=== PATIENT | male | born 1950 | race Caucasian/White ===

== ENCOUNTER → 2016-08-27 | Outpatient (CLI) | payer MEDICARE, BC ==
--- NOTE | 2016-08-28 09:32 | XR ---
Abdomen HISTORY: Flank pain Frontal view of the abdomen submitted on 3 images No comparisons Bone mineralization is maintained. There is no bowel obstruction or pneumoperitoneum. Retained fecal debris present throughout the distribution of the colon. Lung bases are clear. There may be a spinal curvature. Patient appears rotated. IMPRESSION: Correlate for fecal stasis. Some limitations to the exam. Follow-up as indicated.
== END | disposition home or self-care (01) ==
LOC: RADXRYALE 13:20
PROVIDERS: ATTEND Internal Medicine
DX: R10.84 Generalized abdominal pain (principal)
CPT/HCPCS: 74000

== ENCOUNTER → 2016-11-24 | Outpatient (CLI) | payer MEDICARE, BC ==
--- NOTE | 2016-11-25 14:59 | XR ---
EXAMINATION TYPE: XR thoracic spine complete DATE OF EXAM: 11/24/2016 12:18 PM COMPARISON: NONE HISTORY: Upper thoracic pain following fall TECHNIQUE: 3 view thoracic spine FINDINGS: There are 12 thoracic type vertebral bodies. Pedicles are intact. Vertebral body alignment is exaggerated kyphosis centered within the mid thoracic spine. Mild disc space narrowing is present torsion. IMPRESSION: 1. Mild increased kyphosis midthoracic spine
== END | disposition home or self-care (01) ==
LOC: RADXRYALE 12:04
PROVIDERS: ATTEND Internal Medicine
DX: M40.204 Unspecified kyphosis, thoracic region (principal)
CPT/HCPCS: 72072

== ENCOUNTER → 2018-05-02 | Outpatient (CLI) | payer MEDICARE, BC ==
[2018-05-02 11:40] LABS: Basophils % (A) 0 %; Eosinophils # (A) 0.4 k/uL (0-0.7); Eosinophils % (A) 7 %; HCT 45.3 % (39.0-53.0); HGB 14.8 gm/dL (13.0-17.5); Lymphocytes # (A) 0.9 k/uL (1.0-4.8); Lymphocytes % (A) 13 %; MCH 29.4 pg (25.0-35.0); MCHC 32.8 g/dL (31.0-37.0); MCV 89.7 fL (80.0-100.0); Mean Platelet Volume 6.7; Monocytes # (A) 0.3 k/uL (0-1.0); Monocytes % (A) 5 %; Neutrophils # (A) 4.6 k/uL (1.3-7.7); Neutrophils % (A) 72 %; Platelet Count 267 k/uL (150-450); RBC 5.05 m/uL (4.30-5.90); WBC 6.4 k/uL (3.8-10.6)
[2018-05-02 11:50] LABS: Appearance,Urine Clear (Clear); Bilirubin,Urine Negative (Negative); Blood,Urine Negative (Negative); Color,Urine Yellow; Glucose,Urine (UA) Negative (Negative); Ketones,Urine Negative (Negative); Leukocyte Esterase,Urine Negative (Negative); Mucus,Urine Rare /hpf; Nitrite,Urine Negative (Negative); PH, Urine 6.5 (5.0-8.0); Protein,Urine 2+ (Negative); Specific Gravity,Urine 1.015 (1.001-1.035); Squamous Epithelial Cell,Urine <1 /hpf (0-4); Urobilinogen,Urine <2.0 mg/dL (<2.0); WBC,Urine 1 /hpf (0-5)
[2018-05-02 12:06] LABS: Albumin 3.6 g/dL (3.5-5.0); Calcium 9.3 mg/dL (8.4-10.2); Potassium 4.4 mmol/L (3.5-5.1); Total Bilirubin 0.6 mg/dL (0.2-1.3); Total Protein 6.5 g/dL (6.3-8.2)
[2018-05-02 12:21] LABS: T4, Free (Free Thyroxine) 1.22 ng/dL (0.78-2.19)
[2018-05-02 17:12] LABS: Vitamin D 25 Hydroxy 31.4 ng/mL (30.0-100.0)
[2018-05-02 17:45] LABS: Parathyroid Hormone Intact 53.4 pg/mL (14.0-72.0)
[2018-05-02 20:41] LABS: Hemoglobin A1C 6.9 % (4.0-6.0)
== END ==
LOC: LABWHC1 09:24
PROVIDERS: ATTEND Internal Medicine
DX: E11.22 Type 2 diabetes mellitus with diabetic chronic kidney disease (principal); N18.9 Chronic kidney disease, unspecified
CPT/HCPCS: 36415; 80053; 80061; 81001; 82043; 82306; 82570; 82607; 83036; 83970; 84439; 84443; 85025

== ENCOUNTER → 2018-09-13 | Outpatient (CLI) | payer BC, MEDICARE ==
--- NOTE | 2018-09-14 06:54 | CT ---
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 CT DLP: 555.5 mGycm. Automated Exposure Control for Dose Reduction was Utilized. TECHNIQUE: CT scan of the thorax is performed without IV contrast. FINDINGS: LUNGS: Calcified pleural plaques are redemonstrated bilaterally. Mild peripheral reticulation is agai n seen. Dependent atelectasis is again seen in both lower lobes. There is more prominent focal atelec tasis and/or Limited consolidation posteriorly in the left lower lobe and centrally in the left lower lobe near axial image 37 new from prior study. Additional multifocal patchy infiltrates are seen in the lingula and central left upper lobe with mild to moderate bronchiectatic changes on current study new from prior exam. Prominence of lateral and posterior fat extending into pleural space in the right mid to lower lung i s similar to prior study. No pleural effusion is evident bilaterally. No suspicious parenchymal nodul es or masses are identified. MEDIASTINUM: Lack of IV contrast is noted to limit evaluation for mediastinal and especially hilar ad enopathy. There are no definitive greater than 1 cm hilar or mediastinal lymph nodes. No cardiomega ly is seen. Trace pericardial effusion anteriorly axial image 34 is stable. Moderate coronary artery calcification is redemonstrated which is noted marker for underlying coronary artery disease. Stable enlarged right and left pulmonary arteries OTHER: Small hiatal hernia is stable. Stable 1.5 cm right adrenal nodule axial image 51. Slightly lar miguelina exophytic 1.8 cm cyst right kidney axial image 60. Cortical thinning both kidneys redemonstrated. New focal density gallbladder lumen axial image 61 favors small stone and/or sludge. Scoliotic curva ture in thoracic spine is redemonstrated. IMPRESSION: 1. Stable calcified pleural plaques consistent with prior asbestos exposure are redemonstrated. Stabl e mild peripheral fibrosis. New central multilobar left lung infiltrates with bronchiectasis could r eflect acute on chronic parenchymal process, correlate clinically.
== END | disposition home or self-care (01) ==
LOC: RADCTMAIN 16:00
PROVIDERS: ATTEND Internal Medicine Sleep Medicine
DX: J47.9 Bronchiectasis, uncomplicated (principal); R91.8 Other nonspecific abnormal finding of lung field; J84.10 Pulmonary fibrosis, unspecified; J92.9 Pleural plaque without asbestos
CPT/HCPCS: 71250

== ENCOUNTER → 2019-01-30 | Outpatient (CLI) | payer OTHER ==
--- NOTE | 2019-01-31 10:09 | CT ---
EXAMINATION TYPE: CT thoracic spine wo con DATE OF EXAM: 01/30/2019 COMPARISON: CT chest 09/13/2018 and plain film 11/24/[address] chest 06/17/2015 HISTORY: back pain, Wedge compression fracture and kyphosis CT DLP: 1289 mGycm Automated exposure control for dose reduction was used. Helical acquisition through the thoracic spin e. Coronal and sagittal reconstructions. FINDINGS: The kyphosis seen on prior chest CT is again noted. There is anterior wedge compression deformity not ed as on prior exam at T7 and to lesser extent T8 and possibly T9, resulting kyphosis. Multilevel spo ndylosis is present. Loss of disc height present at multiple intervertebral levels. Vacuum phenomenon present at T9-10, T10-11, T8-9 and T5-6. There is a spinal curvature present. No significant spinal stenosis is evident. No sizable disc herniation on this noncontrast exam. No definite foraminal encro achment. There is some facet arthropathy changes at the lower thoracic spine. There is a hiatal hernia present. Atheromatous changes are present within the aorta and super aortic branch vessels. Minimal patchy density present at the posterior lung bases may reflect some atelectas is or scarring, there is some minimal calcified pleural plaque present at the left lung base. Descend ing aorta is ectatic measuring 2.7 cm. There are coronary calcifications. Right adrenal mass measures 18 mm. IMPRESSION: KYPHOSIS, ANTERIOR WEDGE COMPRESSION DEFORMITIES ARE CHRONIC. CORRELATE FOR ASBESTOS RELATED DISEASE. POSSIBLE BASILAR SCARRING, FOLLOW-UP. Stable thoracic aortic aneurysm. Hiatal hernia.
== END | disposition home or self-care (01) ==
LOC: RADCTMAIN 13:42
DX: M40.294 Other kyphosis, thoracic region (principal)
CPT/HCPCS: 72128

== ENCOUNTER 2019-09-14 12:16 | Inpatient (IN) | payer MEDICARE, OTHER ==
[2019-09-14] MEDS ORDERED: ALBUTEROL NEBULIZED 2.5 MG/3 ML INHALATION STA (12:57)
[2019-09-14] MEDS ORDERED: IPRATROPIUM 0.5 MG/2.5 ML NEBU INHALATION STA (12:57)
[2019-09-14] MEDS ORDERED: DEXAMETHASONE SOD PHOSPHATE 10 MG/ML 1 ML VIAL IV STA (12:58)
--- NOTE | 2019-09-14 13:05 | ED ---
General Adult HPI - General Chief complaint: Upper Respiratory Infection Stated complaint: flu symptoms Time Seen by Provider: 09/14/19 12:27 Source: patient Mode of arrival: wheelchair Limitations: no limitations - History of Present Illness Initial comments: Dictation was produced using [employer] dictation software. please excuse any grammatical, word or spelling errors. Chief Complaint: 69-year-old male past medical history asthma, CVA, diabetes, DVT sent in by primary care physician for possible pneumonia. History of Present Illness: 69-year-old male for the last 2-3 days patient has been suffering from cough, nasal congestion. Patient states he has a history of asthma. He states that his primary care physician told him to come to the emergency department for fluid pneumonia workup. Patient denies any overt sick contacts. Patient has a chest pain. Denies any nausea vomiting. Reports that his cough is nonproductive. He is denies any history of COPD. The ROS documented in this emergency department record has been reviewed and confirmed by me. Those systems with pertinent positive or negative responses have been documented in the HPI. All other systems are other negative and/or noncontributory. PHYSICAL EXAM: General Impression: Alert and oriented x3, not in acute distress HEENT: Normocephalic atraumatic, extra-ocular movements intact, pupils equal and reactive to light bilaterally, mucous membranes moist, no oropharyngeal erythema, positive rhinorrhea Cardiovascular: Heart regular rate and rhythm, S1&S2 audible, no murmurs, rubs or gallops Chest: Diffuse wheezing at end expiratory phase Abdomen: Bowel sounds present, abdomen soft, non-tender, non-distended, no organomegaly Musculoskeletal: Pulses present and equal in all extremities, no peripheral edema Motor: no focal deficits noted Neurological: CN II-XII grossly intact, no focal motor or sensory deficits noted Skin: Intact with no visualized rashes Psych: Normal affect and mood ED course: 69-year-old male with multiple comorbidities presents with URI-type symptoms. Upon arrival are within acceptable limits. Patient was directed to the emergency department for his symptoms. Laboratory evaluation obtained. CBC unremarkable. Metabolic panel shows elevated renal markers concerning for mild acute kidney injury. Influenza A is positive. Chest x-ray shows no acute cardiopulmonary processes. Patient still having respiratory issues despite breathing treatment. Given patient's comorbidities we'll have patient observed to the hospital for further monitoring. Patient given scheduled breathing treatments. Discussed patient case with Dr. ly was willing to accept patients care. - Related Data Home Medications Medication Instructions Recorded Confirmed INSULIN ASPART (NovoLOG) [NovoLOG See Protocol SQ AC-TID 02/26/14 04/25/17 (formulary)] Insulin Glargine [Lantus] 35 unit SQ HS 04/30/15 04/25/17 amLODIPine BESYLATE/BENAZEPRIL 1 cap PO DAILY 04/20/16 04/25/17 [Lotrel 10-20 MG] Previous Rx's Medication Instructions Recorded Aspirin 81 mg PO DAILY #30 04/25/17 Atorvastatin Calcium [Lipitor] 40 mg PO DAILY #30 04/25/17 predniSONE [Deltasone] 0 mg PO DIRECTED #10 tab 04/25/17 valACYclovir HCL [Valtrex] 500 mg PO BID #21 tab 04/25/17 Allergies Allergy/AdvReac Type Severity Reaction Status Date / Time fentanyl AdvReac Severe Nausea & Verified 04/25/17 09:01 Vomiting hydrocodone bitartrate AdvReac Nausea & Verified 04/25/17 09:01 [From [place]] Vomiting vancomycin AdvReac Unknown Verified 04/25/17 09:01 Review of Systems ROS Statement: Those systems with pertinent positive or pertinent negative responses have been documented in the HPI. ROS Other: All systems not noted in ROS Statement are negative. Past Medical History Past Medical History: Asthma, Chest Pain / Angina, CVA/TIA, Diabetes Mellitus, Deep Vein Thrombosis (DVT), GERD/Reflux, Hyperlipidemia, Hypertension, Pneumonia, Sleep Apnea/CPAP/BIPAP Additional Past Medical History / Comment(s): PAST HX INCLUDES: cardiac arrhythmia, hiatal hernia, hemorrhoids, Wound left foot,peripheral neuropathy, anemia, ,generalized vitiligo.ASBESTOSIS, TENDONS REMOVED FROM [facility] 04/30/16 History of Any Multi-Drug Resistant Organisms: MRSA Date of last positivie culture/infection: 09/10/2015 MDRO Source:: Left Foot Past Surgical History: Adenoidectomy, Appendectomy, Orthopedic Surgery, Tonsillectomy Additional Past Surgical History / Comment(s): Amputation great toe and 3rd toe left foot, bilateral rotator cuff. TENDONS REMOVED FROM [facility] 04/30/16 Past Anesthesia/Blood Transfusion Reactions: No Reported Reaction Past Psychological History: Anxiety, Depression Smoking Status: Former smoker Past Alcohol Use History: None Reported Past Drug Use History: None Reported - Past Family History Father Family Medical History: CVA/TIA Additional Family Medical History / Comment(s): several cva Mother Family Medical History: Asthma, COPD Sister(s) Family Medical History: Cancer Additional Family Medical History / Comment(s): Breast Cancer Brother(s) Family Medical History: Cancer Additional Family Medical History / Comment(s): Prostate and bladder Cancer General Exam Limitations: no limitations Course Vital Signs 09/14/19 09/14/19 09/14/19 12:20 12:50 13:13 Temperature 98.7 F Pulse Rate 79 80 Respiratory 18 18 Rate Blood Pressure 152/75 O2 Sat by Pulse 97 Oximetry 09/14/19 13:34 Temperature Pulse Rate 84 Respiratory Rate Blood Pressure O2 Sat by Pulse Oximetry Medical Decision Making - Lab Data Result diagrams: 09/14/19 12:25 09/14/19 12:25 Lab Results 09/14/19 09/14/19 09/14/19 Range/Units 12:24 12:25 12:25 WBC 5.7 (3.8-10.6) k/uL RBC 5.51 (4.30-5.90) m/uL Hgb 15.7 (13.0-17.5) gm/dL Hct 48.2 (39.0-53.0) % MCV 87.4 (80.0-100.0) fL MCH 28.6 (25.0-35.0) pg MCHC 32.7 (31.0-37.0) g/dL RDW 12.9 (11.5-15.5) % Plt Count 194 (150-450) k/uL Neutrophils % (Manual) 78 % Lymphocytes % (Manual) 9 % Monocytes % (Manual) 11 % Eosinophils % (Manual) 2 % Neutrophils # (Manual) 4.45 (1.3-7.7) k/uL Lymphocytes # (Manual) 0.51 L (1.0-4.8) k/uL Monocytes # (Manual) 0.63 (0-1.0) k/uL Eosinophils # (Manual) 0.11 (0-0.7) k/uL Nucleated RBCs 0 (0-0) /100 WBC Manual Slide Review Performed RBC Morphology Normal Sodium 136 L (137-145) mmol/L Potassium 4.8 (3.5-5.1) mmol/L Chloride 107 (98-107) mmol/L Carbon Dioxide 19 L (22-30) mmol/L Anion Gap 10 mmol/L BUN 40 H (9-20) mg/dL Creatinine 1.69 H (0.66-1.25) mg/dL Est GFR (CKD-EPI)AfAm 47 (>60 ml/min/1.73 sqM) Est GFR (CKD-EPI)NonAf 41 (>60 ml/min/1.73 sqM) Glucose 167 H (74-99) mg/dL Calcium 8.8 (8.4-10.2) mg/dL Influenza Type A RNA Detected H (Not Detectd) Influenza Type B (PCR) Not Detected (Not Detectd) Disposition Clinical Impression: Influenza, Respiratory failure Disposition: ADMITTED IP TO THIS HOSP Condition: Fair Referrals: Katey Dumont MD [Primary Care Provider] - 1-2 days Decision Time: 14:36
--- NOTE | 2019-09-14 13:53 | XR ---
EXAMINATION TYPE: XR chest 2V DATE OF EXAM: 09/14/2019 COMPARISON: 04/25/2017 HISTORY: Cough, congestion, and flulike symptoms TECHNIQUE: Frontal and lateral views of the chest are obtained. FINDINGS: There is no focal air space opacity, pleural effusion, or pneumothorax seen. The cardiac silhouette size is enlarged. Chronic pleural thickening of the lateral lungs. This is seen dating galindo k to 2017. Chronic interstitial prominence. Midthoracic compression deformity is unchanged from 2017 with exaggerated thoracic kyphosis, diffuse osseous demineralization and mild degenerative change of the spine. IMPRESSION: Chronic changes with no acute cardiopulmonary process.
[2019-09-14 14:01] LABS: Calcium 8.8 mg/dL (8.4-10.2)
[2019-09-14 14:04] LABS: HCT 48.2 % (39.0-53.0); HGB 15.7 gm/dL (13.0-17.5); MCH 28.6 pg (25.0-35.0); MCHC 32.7 g/dL (31.0-37.0); MCV 87.4 fL (80.0-100.0); Mean Platelet Volume 7.2; Platelet Count 194 k/uL (150-450); Potassium 4.8 mmol/L (3.5-5.1); RBC 5.51 m/uL (4.30-5.90); RDW 12.9 % (11.5-15.5); WBC 5.7 k/uL (3.8-10.6)
[2019-09-14 14:21] LABS: Eosinophils # (M) 0.11 k/uL (0-0.7); Lymphocytes # (M) 0.51 k/uL (1.0-4.8); Monocytes # (M) 0.63 k/uL (0-1.0); Neutrophils # (M) 4.45 k/uL (1.3-7.7); Neutrophils % (M) 78 %; Nucleated Red Blood Cells 0 /100 WBC (0-0); Total Cells Counted 100
[2019-09-14] MEDS ORDERED: NALOXONE 0.4 MG/ML 1 ML VIAL IV PRN (14:33)
[2019-09-14] MEDS ORDERED: OSELTAMIVIR 75 MG CAP PO STA (14:35)
[2019-09-14] MEDS: SODIUM CHLORIDE 0.9% 1,000 ML IV SCH (14:45)
[2019-09-14] MEDS: IPRATROPIUM-ALBUTEROL 3 ML NEB INHALATION SCH ×3 (16:16→20:07)
[2019-09-14 17:13] LABS: Glucose,Whole Blood 203 mg/dL (75-99)
[2019-09-14] MEDS: LISINOPRIL 20 MG TAB PO SCH (17:55)
[2019-09-14] MEDS: amLODIPine 10 MG TAB PO SCH (17:55)
[2019-09-14] MEDS: INSULIN ASPART (NovoLOG) 100 UNIT/ML VIAL SQ SCH (17:56)
--- NOTE | 2019-09-14 18:23 | P.CNPUL ---
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, patient was doing well however 4 days ago started having fever or chills along with shortness of breath and cough and wheezing, the symptoms of progressive decided to come into the hospital, he has a history of diabetes CVA and chronic asthma which is stable mild intermittent Review of Systems All systems: negative Past Medical History Past Medical History: Asthma, Chest Pain / Angina, CVA/TIA, Diabetes Mellitus, Deep Vein Thrombosis (DVT), GERD/Reflux, Hyperlipidemia, Hypertension, Pneumonia, Sleep Apnea/CPAP/BIPAP Additional Past Medical History / Comment(s): PAST HX INCLUDES: cardiac arrhythmia, hiatal hernia, hemorrhoids, Wound left foot,peripheral neuropathy, anemia, ,generalized vitiligo.ASBESTOSIS, TENDONS REMOVED FROM [facility] 04/30/16 History of Any Multi-Drug Resistant Organisms: MRSA Date of last positivie culture/infection: 09/10/2015 MDRO Source:: Left Foot Past Surgical History: Adenoidectomy, Appendectomy, Orthopedic Surgery, T onsillectomy Additional Past Surgical History / Comment(s): Amputation great toe and 3rd toe left foot, bilateral rotator cuff. 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 He is and lives in the family home with the . No significant alcohol use. No recreational drug use. No international travel. No animal exposures. He has been the 's caregiver for some time. Smoking Status: Former smoker Past Alcohol Use History: None Reported Additional Past Alcohol Use History / Comment(s): smoker for 30 years 1 ppd quit 1998 Past Drug Use History: None Reported - Past Family History Father Family Medical History: CVA/TIA Additional Family Medical History / Comment(s): several cva Mother Family Medical History: Asthma, COPD Sister(s) Family Medical History: Cancer Additional Family Medical History / Comment(s): Breast Cancer Brother(s) Family Medical History: Cancer Additional Family Medical History / Comment(s): Prostate and bladder Cancer Medications and Allergies Home Medications Medication Instructions Recorded Confirmed Type amLODIPine BESYLATE/BENAZEPRIL 1 cap PO DAILY 04/20/16 09/14/19 History [Lotrel 10-20 MG] Insulin Aspart [NovoLOG Flexpen] 10 units SQ AC-TID 09/14/19 09/14/19 History Insulin Glargine,Hum.rec.anlog 30 unit SQ HS 09/14/19 09/14/19 History [Lantus Solostar] Allergies Allergy/AdvReac Type Severity Reaction Status Date / Time fentanyl AdvReac Severe Nausea & Verified 09/14/19 18:04 Vomiting hydrocodone bitartrate AdvReac Nausea & Verified 09/14/19 18:04 [From [place]] Vomiting vancomycin AdvReac Unknown Verified 09/14/19 18:04 Physical Exam Vitals: Vital Signs Temp Pulse Resp BP Pulse Ox 09/14/19 16:29 80 09/14/19 16:16 82 09/14/19 14:52 79 18 129/76 97 09/14/19 13:34 84 09/14/19 13:13 80 09/14/19 12:50 18 09/14/19 12:20 98.7 F 79 18 152/75 97 Intake and Output 09/14/19 09/14/19 09/14/19 06:59 14:59 22:59 Other: Weight 111.13 kg 111.13 kg - Constitutional General appearance: average body habitus, cooperative, disheveled, mild distress - EENT Eyes: EOMI, PERRLA, poor dentition, normal appearance ENT: normal oropharynx Ears: bilateral: normal - Neck Neck: normal ROM Carotids: bilateral: upstroke normal Thyroid: bilateral: normal size - Respiratory Respiratory: bilateral: rhonchi, wheezing, prolonged expiration, negative: CTA, diminished, dullness, rales - Cardiovascular Rhythm: regular Heart sounds: normal: S1, S2 - Gastrointestinal General gastrointestinal: distended, soft - Integumentary Integumentary: normal - Neurologic Neurologic: CNII-XII intact - Musculoskeletal Musculoskeletal: gait normal, generalized weakness, strength equal bilaterally - Psychiatric Psychiatric: A&O x's 3, appropriate affect, intact judgment & insight Results - Laboratory Findings CBC and BMP: 09/14/19 12:25 09/14/19 12:25 Abnormal lab findings: Abnormal Labs 09/14/19 09/14/19 09/14/19 12:24 12:25 12:25 Lymphocytes # (Manual) 0.51 L Sodium 136 L Carbon Dioxide 19 L BUN 40 H Creatinine 1.69 H Glucose 167 H POC Glucose (mg/dL) Influenza Type A RNA Detected H 09/14/19 17:10 Lymphocytes # (Manual) Sodium Carbon Dioxide BUN Creatinine Glucose POC Glucose (mg/dL) 203 H Influenza Type A RNA - Diagnostic Findings Chest x-ray: report reviewed, image reviewed (No active process chronic changes with pleural thickening due to asbestosis) Assessment and Plan Assessment: Influenza A pneumonia Tracheobronchitis Acute asthma exacerbated by influenza A infection Baseline chronic intermittent asthma History of asbestosis lung Intravascular volume depletion and dehydration Chronic renal failure stage III Diabetes mellitus Hyperglycemia Plan: Tamiflu Bronchodilator IV steroids Gentle rehydration Follow renal functions closely Time with Patient: Greater than 30
[2019-09-14] MEDS ORDERED: IPRATROPIUM-ALBUTEROL 3 ML NEB INHALATION PRN (19:52)
[2019-09-14] MEDS: AZITHROMYCIN 500 MG TAB PO SCH (20:07)
[2019-09-14] MEDS: methylPREDNISolone SOD SUCCI 40 MG/ML 1 ML VIAL IV SCH (20:07)
[2019-09-14 20:09] LABS: Glucose,Whole Blood 338 mg/dL (75-99)
[2019-09-14 20:09] LABS: Glucose,Whole Blood 364 mg/dL (75-99)
[2019-09-14] MEDS ORDERED: INSULIN DETEMIR (LEVEMIR) 100 UNIT/ML SYR SQ SCH (21:00)
[2019-09-14] MEDS ORDERED: OSELTAMIVIR 60 MG/10 ML ORAL SYRINGE PO SCH (21:00)
--- NOTE | 2019-09-15 06:39 | P.HPIM ---
History of Present Illness This is a pleasant 69 years old male with past medical history of diabetes mellitus, hypertension, hyperlipidemia, CVA/TIA, asthma, deep venous thrombosis, sleep apnea on CPAP BiPAP, diabetic neuropathy. Presents with respiratory symptoms with coughing and some clear phlegm, some shortness of breath and chest pain with coughing, it looks malaise and generalized body aches and his been going on for last 2-3 days, he went to see his PCP Dr. Dumont and blood pressure was on the low side and therefore referred to the hospital. He also follows up with Dr. Jeronimo for chemical-induced asthma On the presentation vitals are stable, his oxygen saturating 97% on room air. Influenza a is detected, cbc unremarkable with normal wbc, creatinine elevated 1.69, glu 203 cxr: no acute process by radiology Review of Systems CONSTITUTIONAL: No fever, no malaise, no fatigue. HEENT: No recent visual problems or hearing problems. Denied any sore throat. CARDIOVASCULAR: No orthopnea, PND, no palpitations, no syncope. PULMONARY: No shortness of breath, no cough, no hemoptysis. GASTROINTESTINAL: No diarrhea, no nausea, no vomiting, no abdominal pain. Normoactive bowel sounds. NEUROLOGICAL: No headaches, no weakness, no numbness. HEMATOLOGICAL: Denies any bleeding or petechiae. GENITOURINARY: Denies any burning micturition, frequency, or urgency. MUSCULOSKELETAL/RHEUMATOLOGICAL: Denies any joint pain, swelling, or any muscle pain. ENDOCRINE: Denies any polyuria or polydipsia. Past Medical History Past Medical History: Asthma, Chest Pain / Angina, CVA/TIA, Diabetes Mellitus, Deep Vein Thrombosis (DVT), GERD/Reflux, Hyperlipidemia, Hypertension, Pn e[place], Sleep Apnea/CPAP/BIPAP Additional Past Medical History / Comment(s): PAST HX INCLUDES: cardiac arrhythmia, hiatal hernia, hemorrhoids, Wound left foot,peripheral neuropathy, anemia, ,generalized vitiligo.ASBESTOSIS, TENDONS REMOVED FROM [facility] 04/30/16 History of Any Multi-Drug Resistant Organisms: MRSA Date of last positivie culture/infection: 09/10/2015 MDRO Source:: Left Foot Past Surgical History: Adenoidectomy, Appendectomy, Orthopedic Surgery, Tonsillectomy Additional Past Surgical History / Comment(s): Amputation great toe and 3rd toe left foot, bilateral rotator cuff. TENDONS REMOVED FROM [facility] 04/30/16 Past Anesthesia/Blood Transfusion Reactions: No Reported Reaction Past Psychological History: Anxiety, Depression Smoking Status: Former smoker Past Alcohol Use History: None Reported Past Drug Use History: None Reported - Past Family History Father Family Medical History: CVA/TIA Additional Family Medical History / Comment(s): several cva Mother Family Medical History: Asthma, COPD Sister(s) Family Medical History: Cancer Additional Family Medical History / Comment(s): Breast Cancer Brother(s) Family Medical History: Cancer Additional Family Medical History / Comment(s): Prostate and bladder Cancer Medications and Allergies Home Medications Medication Instructions Recorded Confirmed Type RX: amLODIPine BESYLATE/BENAZEPRIL 1 cap PO DAILY 04/20/16 09/14/19 History [Lotrel 10-20 MG] Insulin Aspart [NovoLOG Flexpen] 10 units SQ AC-TID 09/14/19 09/14/19 History Insulin Glargine,Hum.rec.anlog 30 unit SQ HS 09/14/19 09/14/19 History [Lantus Solostar] Allergies Allergy/AdvReac Type Severity Reaction Status Date / Time fentanyl AdvReac Severe Nausea & Verified 09/14/19 18:04 Vomiting hydrocodone bitartrate AdvReac Nausea & Verified 09/14/19 18:04 [From [place]] Vomiting vancomycin AdvReac Unknown Verified 09/14/19 18:04 Physical Exam Vitals: Vital Signs Temp Pulse Resp BP Pulse Ox 09/14/19 12:50 18 09/14/19 12:20 98.7 F 79 18 152/75 97 Intake and Output 09/13/19 09/14/19 09/14/19 22:59 06:59 14:59 Other: Weight 111.13 kg GENERAL: The patient is alert and oriented x3, not in any acute distress. Well developed, well nourished. HEENT: Pupils are round and equally reacting to light. EOMI. No scleral icterus. No conjunctival pallor. Normocephalic, atraumatic. No pharyngeal erythema. No thyromegaly. CARDIOVASCULAR: S1 and S2 present. No murmurs, rubs, or gallops. PULMONARY: Chest is clear to auscultation,. Bilateral expiratory wheezing ABDOMEN: Soft, nontender, nondistended, normoactive bowel sounds. No palpable organomegaly. MUSCULOSKELETAL: No joint swelling or deformity. EXTREMITIES: No cyanosis, clubbing, or pedal edema. NEUROLOGICAL: Gross neurological examination did not reveal any focal deficits. SKIN: No rashes. No petechiae Results CBC & Chem 7: 09/14/19 12:25 09/14/19 12:25 Labs: Abnormal Lab Results - Last 24 Hours (Table) 09/14/19 Range/Units 12:24 Influenza Type A RNA Detected H (Not Detectd) Assessment and Plan Assessment: Influenza A Acute tracheobronchitis Dehydration acute kidney injury Diabetes mellitus hypertension hyperlipidemia CVA/TIA diabetic neuropathy Deep venous thrombosis sleep apnea on CPAP/BiPAP Plan: This is a pleasant 69 years old male who presents with influenza A and tracheal bronchitis, start Tamiflu antibiotics, continue with steroids, bronchodilators and oxygen as needed and pulmonary consult, normal saline at 75 ml/hr Labs and medication were reviewed.. Continue same treatment. Continue with symptomatic treatment. Resume home medication. Monitor lytes and vitals. DVT and GI prophylaxis. Further recommendations of the clinical course of the patient DVT prophylaxis: Subcutaneous heparin GI Prophylaxis: Pepcid PT/OT: Pending Prognosis is guarded
[2019-09-15 07:17] LABS: Glucose,Whole Blood 314 mg/dL (75-99)
[2019-09-15] MEDS: IPRATROPIUM-ALBUTEROL 3 ML NEB INHALATION SCH ×4 (07:32→19:49)
[2019-09-15] MEDS: HEPARIN SODIUM,PORCINE 5,000 UNIT/ML 1 ML VIAL SQ SCH ×3 (08:20→21:05)
[2019-09-15] MEDS ORDERED: INSULIN ASPART (NovoLOG) 100 UNIT/ML VIAL SQ ONE (08:25)
[2019-09-15] MEDS: INSULIN ASPART (NovoLOG) 100 UNIT/ML VIAL SQ SCH ×6 (08:48→21:04)
[2019-09-15] MEDS: amLODIPine 10 MG TAB PO SCH (08:48)
[2019-09-15] MEDS: LISINOPRIL 20 MG TAB PO SCH (08:48)
[2019-09-15] MEDS: AZITHROMYCIN 500 MG TAB PO SCH (08:48)
[2019-09-15] MEDS: methylPREDNISolone SOD SUCCI 40 MG/ML 1 ML VIAL IV SCH (08:48)
[2019-09-15] MEDS: OSELTAMIVIR 60 MG/10 ML ORAL SYRINGE PO SCH ×2 (08:57→21:05)
[2019-09-15] MEDS ORDERED: FAMOTIDINE 20 MG/2 ML VIAL IV SCH (09:00)
[2019-09-15 11:46] LABS: Glucose,Whole Blood 293 mg/dL (75-99)
[2019-09-15 14:28] LABS: Appearance,Urine Clear (Clear); Bilirubin,Urine Negative (Negative); Blood,Urine Negative (Negative); Color,Urine Yellow; Glucose,Urine (UA) 4+ (Negative); Ketones,Urine Negative (Negative); Leukocyte Esterase,Urine Negative (Negative); Mucus,Urine Rare /hpf; Nitrite,Urine Negative (Negative); PH, Urine 5.5 (5.0-8.0); Protein,Urine 1+ (Negative); RBC,Urine 1 /hpf (0-5); Specific Gravity,Urine 1.017 (1.001-1.035); Urobilinogen,Urine <2.0 mg/dL (<2.0); WBC,Urine <1 /hpf (0-5)
[2019-09-15] MEDS: SODIUM CHLORIDE 0.9% 1,000 ML IV SCH (15:04)
--- NOTE | 2019-09-15 15:09 | CONS ---
CONSULTATION REASON FOR CONSULT: Renal failure. HISTORY OF PRESENT ILLNESS: The patient is a 69-year-old male who has a history of hypertension, type 2 diabetes, CVA, TIA, obstructive sleep apnea, who was admitted to the hospital with complaints of chest pain, shortness of breath. The patient was at his PCPs office and was noted to have low blood pressure. The patient states that he he has not had any prior history of kidney diseases. Upon admission patient did test positive for influenza A. He has good urine output. He did admit to use of a few doses of NSAIDs prior to admission. Blood pressure currently is not significantly low. PAST MEDICAL HISTORY: Diabetes, hypertension, CVA, TIA, history of DVT, gastroesophageal reflux disease, pneumonia, obstructive sleep apnea, asthma, peripheral neuropathy, hemorrhoids, asbestosis, previous history of MRSA foot infection. PAST SURGICAL HISTORY: Adenoidectomy, appendectomy, tonsillectomy, amputation great toe and third left toe. SOCIAL HISTORY: Positive for patient being a former smoker. No history of drug abuse or alcohol abuse. MEDICATIONS: Prior to admission included insulin, amlodipine, benazepril. ALLERGIES: Include FENTANYL, NORCO, VANCOMYCIN. REVIEW OF SYSTEMS: As per HPI. Other systems negative. PHYSICAL EXAMINATION: On examination, patient is comfortable, awake, not in any acute distress. Alert and oriented x3. Blood pressure was 133/62, heart rate 88 per minute, patient is afebrile. Examination of the heart S1, S2. Examination of the lungs, bilateral breath sounds are heard. Abdomen is soft, non-tender. Examination of lower extremities shows no significant edema. [employer] exam grossly intact. LABS: Show sodium 136, potassium 4.8, chloride 107, CO2 is 19, BUN 40, creatinine 1.69. Influenza A is positive. Hemoglobin 15.7, white cell count 5.7. Chest x-ray shows no acute pulmonary process. ASSESSMENT: 1. Acute kidney injury, most likely prerenal and associated with underlying infection. Continue with IV fluids for now. 2. Rule out chronic kidney disease secondary secondary diabetic nephropathy. Previous creatinine was 1.2 mg/dL in 2016 and 2018. NKF stage III. 3. Influenza A, maintained on Tamiflu. 4. Viral tracheobronchitis. 5. Hypertension, currently on MERA inhibitors, controlled. PLAN: Continue IV fluids, repeat labs in a.m. Decrease dose of lisinopril if serum creatinine is higher tomorrow. Avoid use of NSAIDs. Increase oral intake as tolerated. Thank you for this consultation. Will continue to follow the patient with you during his hospitalization. PURVI / VALENTE: [id number] /
--- NOTE | 2019-09-15 15:10 | P.PN ---
Subjective Progress Note Date: 09/15/19 Principal diagnosis: Influenza A pneumonia Tracheobronchitis Acute asthma exacerbated by influenza A infection Baseline chronic intermittent asthma History of asbestosis lung Intravascular volume depletion and dehydration Chronic renal failure stage III Diabetes mellitus Hyperglycemia 09/15/2019, patient seen eval examined during the rounds labs reviewed medications reviewed, care plan discussed, shortness of breath and wheezing and significantly improved, patient wishes to go home, agree with discharge planning with by mouth steroids antibiotics and Tamiflu, patient has been advised for social distance and avoidance going to public places for next several days until recovered completely, patient seems to understand This is a 69-year-old male well-known to be patient gets follow-up due to asbestosis lung asbestosis related lung injury, patient was doing well however 4 days ago started having fever or chills along with shortness of breath and cough and wheezing, the symptoms of progressive decided to come into the hospital, he has a history of diabetes CVA and chronic asthma which is stable mild intermittent Objective - Vital Signs Vital signs: Vital Signs Temp 98.3 F 09/15/19 13:05 Pulse 88 09/15/19 13:05 Resp 17 09/15/19 13:05 BP 133/62 09/15/19 13:05 Pulse Ox 91 L 09/15/19 13:05 Intake & Output 09/14/19 09/15/19 09/15/19 18:59 06:59 18:59 Intake Total 740 460 Balance 740 460 Weight 111.13 kg Intake: Oral 740 460 Other: # Voids 2 2 - Exam - Constitutional General appearance: average body habitus, cooperative, disheveled, mild distress - EENT Eyes: EOMI, PERRLA, poor dentition, normal appearance ENT: normal oropharynx Ears: bilateral: normal - Neck Neck: normal ROM Carotids: bilateral: upstroke normal Thyroid: bilateral: normal size - Respiratory Respiratory: Improved air entry bilaterally compared to yesterday exam - Cardiovascular Rhythm: regular Heart sounds: normal: S1, S2 - Gastrointestinal General gastrointestinal: distended, soft - Integumentary Integumentary: normal - Neurologic Neurologic: CNII-XII intact - Musculoskeletal Musculoskeletal: gait normal, generalized weakness, strength equal bilaterally - Psychiatric Psychiatric: A&O x's 3, appropriate affect, intact judgment & insight - Labs CBC & Chem 7: 09/14/19 12:25 09/14/19 12:25 Labs: Abnormal Lab Results - Last 24 Hours (Table) 09/14/19 09/14/19 09/14/19 Range/Units 17:10 20:05 20:08 POC Glucose (mg/dL) 203 H 364 H 338 H (75-99) mg/dL Urine Protein (Negative) Urine Glucose (UA) (Negative) Urine Mucus (None) /hpf 09/15/19 09/15/19 09/15/19 Range/Units 07:16 11:44 13:45 POC Glucose (mg/dL) 314 H 293 H (75-99) mg/dL Urine Protein 1+ H (Negative) Urine Glucose (UA) 4+ H (Negative) Urine Mucus Rare H (None) /hpf Assessment and Plan Assessment: Influenza A pneumonia Tracheobronchitis Acute asthma exacerbated by influenza A infection Baseline chronic intermittent asthma History of asbestosis lung Intravascular volume depletion and dehydration Chronic renal failure stage III Diabetes mellitus Hyperglycemia Plan: Tamiflu Bronchodilator IV steroids Gentle rehydration Follow renal functions closely Time with Patient: Greater than 30
--- NOTE | 2019-09-15 16:05 | P.PN ---
Subjective Progress Note Date: 09/15/19 Principal diagnosis: Influenza A pneumonia Severe acute tracheobronchitis Acute exacerbation of asthma Acute on chronic kidney disease 09/15/2019, patient seen eval examined during the rounds labs reviewed medications reviewed, care plan discussed, shortness of breath and wheezing and significantly improved, patient wishes to go home, agree with discharge planning with by mouth steroids antibiotics and Tamiflu, patient has been advised for social distance and avoidance going to public places for next several days until recovered completely, patient seems to understand Objective - Vital Signs Vital signs: Vital Signs Temp 98.3 F 09/15/19 13:05 Pulse 82 09/15/19 15:57 Resp 17 09/15/19 13:05 BP 133/62 09/15/19 13:05 Pulse Ox 91 L 09/15/19 13:05 Intake & Output 09/14/19 09/15/19 09/15/19 18:59 06:59 18:59 Intake Total 740 460 Balance 740 460 Weight 111.13 kg Intake: Oral 740 460 Other: # Voids 2 2 - Exam PHYSICAL EXAMINATION: GENERAL: The patient is alert and oriented x3, not in any acute distress. Well developed, well nourished. HEENT: Pupils are round and equally reacting to light. EOMI. No scleral icterus. No conjunctival pallor. Normocephalic, atraumatic. No pharyngeal erythema. No thyromegaly. CARDIOVASCULAR: S1 and S2 present. No murmurs, rubs, or gallops. PULMONARY: Chest is clear to auscultation, no wheezing or crackles. ABDOMEN: Soft, nontender, nondistended, normoactive bowel sounds. No palpable organomegaly. MUSCULOSKELETAL: No joint swelling or deformity. EXTREMITIES: No cyanosis, clubbing, or pedal edema. NEUROLOGICAL: Gross neurological examination did not reveal any focal deficits. SKIN: No rashes. - Labs CBC & Chem 7: 09/14/19 12:25 09/14/19 12:25 Labs: Abnormal Lab Results - Last 24 Hours (Table) 09/14/19 09/14/19 09/14/19 Range/Units 17:10 20:05 20:08 POC Glucose (mg/dL) 203 H 364 H 338 H (75-99) mg/dL Urine Protein (Negative) Urine Glucose (UA) (Negative) Urine Mucus (None) /hpf 09/15/19 09/15/19 09/15/19 Range/Units 07:16 11:44 13:45 POC Glucose (mg/dL) 314 H 293 H (75-99) mg/dL Urine Protein 1+ H (Negative) Urine Glucose (UA) 4+ H (Negative) Urine Mucus Rare H (None) /hpf Assessment and Plan Assessment: Influenza A Acute tracheobronchitis Dehydration acute kidney injury Diabetes mellitus hypertension hyperlipidemia CVA/TIA diabetic neuropathy Deep venous thrombosis sleep apnea on CPAP/BiPAP Plan: This is a pleasant 69 years old male who presents with influenza A and tracheal bronchitis, start Tamiflu antibiotics, continue with steroids, bronchodilators and oxygen as needed and pulmonary consult, normal saline at 75 ml/hr Labs and medication were reviewed.. Continue same treatment. Continue with symptomatic treatment. Resume home medication. Monitor lytes and vitals. DVT and GI prophylaxis. Further recommendations of the clinical course of the patient DVT prophylaxis: Subcutaneous heparin GI Prophylaxis: Pepcid
[2019-09-15 16:47] LABS: Glucose,Whole Blood 292 mg/dL (75-99)
[2019-09-15 20:29] LABS: Glucose,Whole Blood 305 mg/dL (75-99)
[2019-09-15] MEDS: INSULIN DETEMIR (LEVEMIR) 100 UNIT/ML SYR SQ SCH (21:04)
[2019-09-16] MEDS: SODIUM CHLORIDE 0.9% 1,000 ML IV SCH ×2 (04:39→17:04)
[2019-09-16 07:14] LABS: Glucose,Whole Blood 215 mg/dL (75-99)
[2019-09-16] MEDS: AZITHROMYCIN 500 MG TAB PO SCH (07:46)
[2019-09-16] MEDS: INSULIN ASPART (NovoLOG) 100 UNIT/ML VIAL SQ SCH ×7 (07:46→20:25)
[2019-09-16] MEDS: amLODIPine 10 MG TAB PO SCH (07:46)
[2019-09-16] MEDS: HEPARIN SODIUM,PORCINE 5,000 UNIT/ML 1 ML VIAL SQ SCH ×2 (07:47→20:25)
[2019-09-16] MEDS: OSELTAMIVIR 60 MG/10 ML ORAL SYRINGE PO SCH ×2 (07:47→20:25)
[2019-09-16] MEDS: LISINOPRIL 20 MG TAB PO SCH (07:47)
[2019-09-16] MEDS: predniSONE 20 MG TAB PO SCH (07:47)
[2019-09-16] MEDS: FAMOTIDINE 20 MG TAB PO SCH (07:47)
[2019-09-16 09:20] LABS: Potassium 4.9 mmol/L (3.5-5.1)
[2019-09-16 09:22] LABS: Basophils % (A) 0 %; Eosinophils % (A) 0 %; HCT 42.7 % (39.0-53.0); HGB 14.2 gm/dL (13.0-17.5); Lymphocytes # (A) 0.5 k/uL (1.0-4.8); Lymphocytes % (A) 4 %; MCH 28.9 pg (25.0-35.0); MCHC 33.3 g/dL (31.0-37.0); MCV 86.7 fL (80.0-100.0); Mean Platelet Volume 7.4; Monocytes # (A) 0.4 k/uL (0-1.0); Monocytes % (A) 3 %; Neutrophils # (A) 11.4 k/uL (1.3-7.7); Neutrophils % (A) 92 %; Platelet Count 228 k/uL (150-450); RBC 4.92 m/uL (4.30-5.90); RDW 12.8 % (11.5-15.5); WBC 12.4 k/uL (3.8-10.6)
[2019-09-16] MEDS: IPRATROPIUM-ALBUTEROL 3 ML NEB INHALATION SCH ×4 (09:47→21:04)
[2019-09-16 11:45] LABS: Glucose,Whole Blood 258 mg/dL (75-99)
--- NOTE | 2019-09-16 12:49 | P.PN ---
Subjective Progress Note Date: 09/16/19 Principal diagnosis: Influenza A pneumonia Tracheobronchitis Acute asthma exacerbated by influenza A infection Baseline chronic intermittent asthma History of asbestosis lung Intravascular volume depletion and dehydration Chronic renal failure stage III Diabetes mellitus Hyperglycemia 09/16/2019, patient seen eval examined during the rounds as reviewed medications reviewed slight jump in BUN/creatinine has been noted patient is being monitored for that, respiratory standpoint he is doing very well very limited wheezing are present on fours expiration denies any cough or sputum production, shortness of breath on exertion however is present 09/15/2019, patient seen eval examined during the rounds labs reviewed medications reviewed, care plan discussed, shortness of breath and wheezing and significantly improved, patient wishes to go home, agree with discharge planning with by mouth steroids antibiotics and Tamiflu, patient has been advised for social distance and avoidance going to public places for next several days until recovered completely, patient seems to understand This is a 69-year-old male well-known to be patient gets follow-up due to asbestosis lung asbestosis related lung injury, patient was doing well however 4 days ago started having fever or chills along with shortness of breath and cough and wheezing, the symptoms of progressive decided to come into the hospital, he has a history of diabetes CVA and chronic asthma which is stable mild intermittent Objective - Vital Signs Vital signs: Vital Signs Temp 98.4 F 09/16/19 07:00 Pulse 85 09/16/19 09:57 Resp 16 09/16/19 07:00 BP 154/71 09/16/19 07:00 Pulse Ox 93 L 09/16/19 07:00 Intake & Output 09/15/19 09/16/19 09/16/19 18:59 06:59 18:59 Intake Total 460 740 Balance 460 740 Intake: Oral 460 400 Other 340 Other: Voiding Method Toilet # Voids 2 1 - Exam - Constitutional General appearance: average body habitus, cooperative, disheveled, mild distress - EENT Eyes: EOMI, PERRLA, poor dentition, normal appearance ENT: normal oropharynx Ears: bilateral: normal - Neck Neck: normal ROM Carotids: bilateral: upstroke normal Thyroid: bilateral: normal size - Respiratory Respiratory: Improved air entry bilaterally compared to yesterday exam - Cardiovascular Rhythm: regular Heart sounds: normal: S1, S2 - Gastrointestinal General gastrointestinal: distended, soft - Integumentary Integumentary: normal - Neurologic Neurologic: CNII-XII intact - Musculoskeletal Musculoskeletal: gait normal, generalized weakness, strength equal bilaterally - Psychiatric Psychiatric: A&O x's 3, appropriate affect, intact judgment & insight - Labs CBC & Chem 7: 09/16/19 07:49 09/16/19 07:49 Labs: Abnormal Lab Results - Last 24 Hours (Table) 09/15/19 09/15/19 09/15/19 Range/Units 13:45 16:45 20:20 WBC (3.8-10.6) k/uL Neutrophils # (1.3-7.7) k/uL Lymphocytes # (1.0-4.8) k/uL Chloride (98-107) mmol/L Carbon Dioxide (22-30) mmol/L BUN (9-20) mg/dL Creatinine (0.66-1.25) mg/dL Glucose (74-99) mg/dL POC Glucose (mg/dL) 292 H 305 H (75-99) mg/dL Urine Protein 1+ H (Negative) Urine Glucose (UA) 4+ H (Negative) Urine Mucus Rare H (None) /hpf 09/16/19 09/16/19 09/16/19 Range/Units 07:06 07:49 07:49 WBC 12.4 H (3.8-10.6) k/uL Neutrophils # 11.4 H (1.3-7.7) k/uL Lymphocytes # 0.5 L (1.0-4.8) k/uL Chloride 112 H (98-107) mmol/L Carbon Dioxide 19 L (22-30) mmol/L BUN 42 H (9-20) mg/dL Creatinine 1.44 H (0.66-1.25) mg/dL Glucose 209 H (74-99) mg/dL POC Glucose (mg/dL) 215 H (75-99) mg/dL Urine Protein (Negative) Urine Glucose (UA) (Negative) Urine Mucus (None) /hpf 09/16/19 Range/Units 11:37 WBC (3.8-10.6) k/uL Neutrophils # (1.3-7.7) k/uL Lymphocytes # (1.0-4.8) k/uL Chloride (98-107) mmol/L Carbon Dioxide (22-30) mmol/L BUN (9-20) mg/dL Creatinine (0.66-1.25) mg/dL Glucose (74-99) mg/dL POC Glucose (mg/dL) 258 H (75-99) mg/dL Urine Protein (Negative) Urine Glucose (UA) (Negative) Urine Mucus (None) /hpf Microbiology - Last 24 Hours (Table) 09/14/19 12:55 Blood Culture - Preliminary Blood No Growth after 24 hours Assessment and Plan Assessment: Influenza A pneumonia Tracheobronchitis Acute asthma exacerbated by influenza A infection Baseline chronic intermittent asthma History of asbestosis lung Intravascular volume depletion and dehydration Chronic renal failure stage III Diabetes mellitus Hyperglycemia Plan: Tamiflu Bronchodilator IV steroids Gentle rehydration Follow renal functions closely Time with Patient: Greater than 30
--- NOTE | 2019-09-16 14:17 | P.NPCON ---
History of Present Illness - Reason for Consult Consult date: 09/16/19 acute renal failure - Chief Complaint Cough - History of Present Illness 69-year-old gentleman coming to the hospital with the above complaints. Currently being treated as influenza pneumonia. Long history of diabetes. He has chronic kidney disease stage III suspected diabetes with a baseline c reatinine of 1.2-1.3 MG per DL. He presented with a creatinine of 1.69. Improved with IV hydration to 1.4 MG per DL today. No nausea vomiting diarrhea. Generalized body aches with low oral intake. Denies NSAID use. No recent contrast studies. Review of Systems Constitutional: Reports as per HPI Past Medical History Past Medical History: Asthma, Chest Pain / Angina, CVA/TIA, Diabetes Mellitus, Deep Vein Thrombosis (DVT), GERD/Reflux, Hyperlipidemia, Hypertension, Pneumonia, Sleep Apnea/CPAP/BIPAP Additional Past Medical History / Comment(s): PAST HX INCLUDES: cardiac arrhythmia, hiatal hernia, hemorrhoids, Wound left foot,peripheral neuropathy, anemia, ,generalized vitiligo.ASBESTOSIS, TENDONS REMOVED FROM [facility] 04/30/16 History of Any Multi-Drug Resistant Organisms: MRSA Date of last positivie culture/infection: 09/10/2015 MDRO Source:: Left Foot Past Surgical History: Adenoidectomy, Appendectomy, Orthopedic Surgery, Tonsillectomy Additional Past Surgical History / Comment(s): Amputation great toe and 3rd toe left foot, bilateral rotator cuff. TENDONS REMOVED FROM [facility] 04/30/16 Past Anesthesia/Blood Transfusion Reactions: No Reported Reaction Past Psychological History: Anxiety, Depression Smoking Status: Former smoker Past Alcohol Use History: None Reported Past Drug Use History: None Reported - Past Family History Father Family Medical History: CVA/TIA Additional Family Medical History / Comment(s): several cva Mother Family Medical History: Asthma, COPD Sister(s) Family Medical History: Cancer Additional Family Medical History / Comment(s): Breast Cancer Brother(s) Family Medical History: Cancer Additional Family Medical History / Comment(s): Prostate and bladder Cancer Medications and Allergies Home Medications Medication Instructions Recorded Confirmed Type amLODIPine BESYLATE/BENAZEPRIL 1 cap PO DAILY 04/20/16 09/14/19 History [Lotrel 10-20 MG] Insulin Aspart [NovoLOG Flexpen] 10 units SQ AC-TID 09/14/19 09/14/19 History Insulin Glargine,Hum.rec.anlog 30 unit SQ HS 09/14/19 09/14/19 History [Lantus Yudiostar] Allergies Allergy/AdvReac Type Severity Reaction Status Date / Time fentanyl AdvReac Severe Nausea & Verified 09/14/19 18:04 Vomiting hydrocodone bitartrate AdvReac Nausea & Verified 09/14/19 18:04 [From [facility]] Vomiting vancomycin AdvReac Unknown Verified 09/14/19 18:04 Physical Exam Vitals: Vital Signs Temp Pulse Pulse Resp BP Pulse Ox 09/16/19 09:57 85 09/16/19 09:47 85 09/16/19 07:00 98.4 F 83 16 154/71 93 L 09/15/19 21:00 98.3 F 92 20 105/57 90 L 09/15/19 19:57 82 09/15/19 19:50 84 09/15/19 16:11 80 09/15/19 15:57 82 Intake and Output 09/15/19 09/16/19 09/16/19 22:59 06:59 14:59 Intake Total 400 340 Balance 400 340 Intake: Oral 400 Other 340 Other: Voiding Method Toilet # Voids 1 1 No acute distress S1-S2 heard Decreased breath sounds Abdomen soft Trace edema Results - Lab Results Most recent lab results Calcium 9.0 mg/dL (8.4-10.2) 09/16/19 07:49 09/16/19 07:49 09/16/19 07:49 Assessment and Plan Assessment: #1 nonoliguric acute kidney injury suspect prerenal process. #2 chronic kidney disease stage III with a baseline creatinine of 1.2-1.3 MG per DL suspected diabetes. #3 hypertension with chronic kidney disease #4 metabolic acidosis #5 influenza pneumonia on antibiotics Plan: #1 check renal ultrasound, urinalysis and urine protein creatinine ratio. #2 hold lisinopril for now with acute kidney injury. #3 avoid nephrotoxic agents and hypotensive episodes. #4 continue with IV fluids for now.
--- NOTE | 2019-09-16 16:04 | US ---
EXAMINATION TYPE: US kidneys/renal and bladder DATE OF EXAM: 09/16/2019 COMPARISON: multiple CT's and US dated 2014 CLINICAL HISTORY: size. Renal failure EXAM MEASUREMENTS: Right Kidney: 12.1 x 6.1 x 4.4 cm Left Kidney: 11.4 x 5.1 x 5.7 cm Right Kidney: Upper pole exophytic cyst measures 2.5 x 1.9 x 2.6 cm, and lower pole solid appearing m ass measures 3.3 x 4.3 x 2.8 cm Left Kidney: No hydronephrosis or masses seen Bladder: wnl IMPRESSION: There is a mass in the lower pole right kidney that is suspicious for tumor and appears new compared to old exam.
[2019-09-16 16:11] LABS: Appearance,Urine Clear (Clear); Bilirubin,Urine Negative (Negative); Blood,Urine Trace (Negative); Color,Urine Light Yellow; Glucose,Urine (UA) 3+ (Negative); Ketones,Urine Negative (Negative); Leukocyte Esterase,Urine Negative (Negative); Mucus,Urine Rare /hpf; Nitrite,Urine Negative (Negative); PH, Urine 5.5 (5.0-8.0); Protein,Urine 1+ (Negative); RBC,Urine <1 /hpf (0-5); Specific Gravity,Urine 1.014 (1.001-1.035); Squamous Epithelial Cell,Urine <1 /hpf (0-4); Urobilinogen,Urine <2.0 mg/dL (<2.0); WBC,Urine <1 /hpf (0-5)
--- NOTE | 2019-09-16 16:27 | P.PN ---
Subjective Progress Note Date: 09/16/19 Principal diagnosis: Influenza A pneumonia Severe acute tracheobronchitis Acute exacerbation of asthma Acute on chronic kidney disease 09/15/2019, patient seen eval examined during the rounds labs reviewed medications reviewed, care plan discussed, shortness of breath and wheezing and significantly improved, patient wishes to go home, agree with discharge planning with by mouth steroids antibiotics and Tamiflu, patient has been advised for social distance and avoidance going to public places for next several days until recovered completely, patient seems to understand 09/16/2019 Patient is seen and evaluated in room at bedside; patient is currently getting renal ultrasound done Remains on treatment for influenza and pneumonia; lab review shows improvement in creatinine from 1.69 yesterday down to 1.4; nephrology is following and recommending further evaluation of worsening renal failure with renal ultrasound and block for; we will continue with slow fluid hydration and monitor renal function and electrolytes Objective - Vital Signs Vital signs: Vital Signs Temp 98.4 F 09/16/19 07:00 Pulse 85 09/16/19 09:57 Resp 16 09/16/19 07:00 BP 154/71 09/16/19 07:00 Pulse Ox 93 L 09/16/19 07:00 Intake & Output 09/15/19 09/16/19 09/16/19 18:59 06:59 18:59 Intake Total 460 740 Balance 460 740 Intake: Oral 460 400 Other 340 Other: Voiding Method Toilet # Voids 2 1 - Exam PHYSICAL EXAMINATION: GENERAL: The patient is alert and oriented x3, not in any acute distress. Well developed, well nourished. HEENT: Pupils are round and equally reacting to light. EOMI. No scleral icterus. No conjunctival pallor. Normocephalic, atraumatic. No pharyngeal erythema. No thyromegaly. CARDIOVASCULAR: S1 and S2 present. No murmurs, rubs, or gallops. PULMONARY: Chest is clear to auscultation, no wheezing or crackles. ABDOMEN: Soft, nontender, nondistended, normoactive bowel sounds. No palpable organomegaly. MUSCULOSKELETAL: No joint swelling or deformity. EXTREMITIES: No cyanosis, clubbing, or pedal edema. NEUROLOGICAL: Gross neurological examination did not reveal any focal deficits. SKIN: No rashes. - Labs CBC & Chem 7: 09/16/19 07:49 09/16/19 07:49 Labs: Abnormal Lab Results - Last 24 Hours (Table) 09/15/19 09/15/19 09/16/19 Range/Units 16:45 20:20 07:06 WBC (3.8-10.6) k/uL Neutrophils # (1.3-7.7) k/uL Lymphocytes # (1.0-4.8) k/uL Chloride (98-107) mmol/L Carbon Dioxide (22-30) mmol/L BUN (9-20) mg/dL Creatinine (0.66-1.25) mg/dL Glucose (74-99) mg/dL POC Glucose (mg/dL) 292 H 305 H 215 H (75-99) mg/dL 09/16/19 09/16/19 09/16/19 Range/Units 07:49 07:49 11:37 WBC 12.4 H (3.8-10.6) k/uL Neutrophils # 11.4 H (1.3-7.7) k/uL Lymphocytes # 0.5 L (1.0-4.8) k/uL Chloride 112 H (98-107) mmol/L Carbon Dioxide 19 L (22-30) mmol/L BUN 42 H (9-20) mg/dL Creatinine 1.44 H (0.66-1.25) mg/dL Glucose 209 H (74-99) mg/dL POC Glucose (mg/dL) 258 H (75-99) mg/dL Microbiology - Last 24 Hours (Table) 09/14/19 12:55 Blood Culture - Preliminary Blood No Growth after 24 hours Assessment and Plan Assessment: Influenza A Acute tracheobronchitis Dehydration acute kidney injury Diabetes mellitus hypertension hyperlipidemia CVA/TIA diabetic neuropathy Deep venous thrombosis sleep apnea on CPAP/BiPAP Plan: This is a pleasant 69 years old male who presents with influenza A and tracheal bronchitis, start Tamiflu antibiotics, continue with steroids, bronchodilators and oxygen as needed and pulmonary consult, normal saline at 75 ml/hr Labs and medication were reviewed.. Continue same treatment. Continue with symptomatic treatment. Resume home medication. Monitor lytes and vitals. DVT and GI prophylaxis. Further recommendations of the clinical course of the patient DVT prophylaxis: Subcutaneous heparin GI Prophylaxis: Pepcid
[2019-09-16 17:00] LABS: Glucose,Whole Blood 238 mg/dL (75-99)
[2019-09-16 20:11] LABS: Glucose,Whole Blood 299 mg/dL (75-99)
[2019-09-16] MEDS: SODIUM BICARBONATE TAB 650 MG TAB PO SCH (20:25)
[2019-09-16] MEDS: INSULIN DETEMIR (LEVEMIR) 100 UNIT/ML SYR SQ SCH (20:25)
[2019-09-16 22:49] LABS: Urine Creatinine 66.7 mg/dL
[2019-09-17 07:05] LABS: Glucose,Whole Blood 97 mg/dL (75-99)
[2019-09-17] MEDS: INSULIN ASPART (NovoLOG) 100 UNIT/ML VIAL SQ SCH ×7 (07:19→20:32)
[2019-09-17 07:50] LABS: Calcium 9.2 mg/dL (8.4-10.2); Potassium 4.8 mmol/L (3.5-5.1)
[2019-09-17] MEDS: IPRATROPIUM-ALBUTEROL 3 ML NEB INHALATION SCH ×4 (07:52→19:58)
[2019-09-17] MEDS: SODIUM CHLORIDE 0.9% 1,000 ML IV SCH ×2 (08:24→20:33)
[2019-09-17] MEDS: AZITHROMYCIN 500 MG TAB PO SCH (08:25)
[2019-09-17] MEDS: predniSONE 20 MG TAB PO SCH (08:25)
[2019-09-17] MEDS: amLODIPine 10 MG TAB PO SCH (08:25)
[2019-09-17] MEDS: SODIUM BICARBONATE TAB 650 MG TAB PO SCH ×2 (08:25→20:32)
[2019-09-17] MEDS: OSELTAMIVIR 60 MG/10 ML ORAL SYRINGE PO SCH ×2 (08:25→20:31)
[2019-09-17] MEDS: HEPARIN SODIUM,PORCINE 5,000 UNIT/ML 1 ML VIAL SQ SCH ×2 (08:25→20:32)
[2019-09-17] MEDS: FAMOTIDINE 20 MG TAB PO SCH (08:25)
--- NOTE | 2019-09-17 10:16 | P.PN ---
Subjective Progress Note Date: 09/17/19 Principal diagnosis: Influenza A pneumonia Tracheobronchitis Acute asthma exacerbated by influenza A infection Baseline chronic intermittent asthma History of asbestosis lung Intravascular volume depletion and dehydration Chronic renal failure stage III Diabetes mellitus Hyperglycemia 09/17/2019, patient seen eval reexamined during the rounds sitting upright in the bed breathing comfortably denies any chest pain cough congestion shortness breath improved labs reviewed medications reviewed renal functions have improved now sure whether still running high, insulin is being adjusted, and, patient can be quickly tapered down from prednisone agree with discharge planning 09/16/2019, patient seen eval examined during the rounds as reviewed medications reviewed slight jump in BUN/creatinine has been noted patient is being monitored for that, respiratory standpoint he is doing very well very limited wheezing are present on fours expiration denies any cough or sputum production, shortness of breath on exertion however is present 09/15/2019, patient seen eval examined during the rounds labs reviewed medications reviewed, care plan discussed, shortness of breath and wheezing and significantly improved, patient wishes to go home, agree with discharge planning with by mouth steroids antibiotics and Tamiflu, patient has been advised for social distance and avoidance going to public places for next several days until recovered completely, patient seems to understand This is a 69-year-old male well-known to be patient gets follow-up due to asbestosis lung asbestosis related lung injury, patient was doing well however 4 days ago started having fever or chills along with shortness of breath and cough and wheezing, the symptoms of progressive decided to come into the hospital, he has a history of diabetes CVA and chronic asthma which is stable mild interm ittent Objective - Vital Signs Vital signs: Vital Signs Temp 98.9 F 09/17/19 05:00 Pulse 82 09/17/19 08:03 Resp 20 09/17/19 05:00 BP 144/71 09/17/19 05:00 Pulse Ox 94 L 09/17/19 05:00 Intake & Output 09/16/19 09/17/19 09/17/19 17:59 06:59 18:59 Intake Total Balance Intake: Oral Other Other: Voiding Method # Voids - Exam - Constitutional General appearance: average body habitus, cooperative, disheveled, mild distress - EENT Eyes: EOMI, PERRLA, poor dentition, normal appearance ENT: normal oropharynx Ears: bilateral: normal - Neck Neck: normal ROM Carotids: bilateral: upstroke normal Thyroid: bilateral: normal size - Respiratory Respiratory: Improved air entry bilaterally compared to yesterday exam - Cardiovascular Rhythm: regular Heart sounds: normal: S1, S2 - Gastrointestinal General gastrointestinal: distended, soft - Integumentary Integumentary: normal - Neurologic Neurologic: CNII-XII intact - Musculoskeletal Musculoskeletal: gait normal, generalized weakness, strength equal bilaterally - Psychiatric Psychiatric: A&O x's 3, appropriate affect, intact judgment & insight - Labs CBC & Chem 7: 09/16/19 07:49 09/17/19 07:14 Labs: Abnormal Lab Results - Last 24 Hours (Table) 09/16/19 09/16/19 09/16/19 Range/Units 07:49 07:49 11:37 WBC 12.4 H (3.8-10.6) k/uL Neutrophils # 11.4 H (1.3-7.7) k/uL Lymphocytes # 0.5 L (1.0-4.8) k/uL Chloride 112 H (98-107) mmol/L Carbon Dioxide 19 L (22-30) mmol/L BUN 42 H (9-20) mg/dL Creatinine 1.44 H (0.66-1.25) mg/dL Glucose 209 H (74-99) mg/dL POC Glucose (mg/dL) 258 H (75-99) mg/dL Urine Protein (Negative) Urine Glucose (UA) (Negative) Urine Blood (Negative) Urine Mucus (None) /hpf Ur Random Microalbumin (0.0-1.9) mg/dL Microalb/Creat Ratio (0-30) mg/g Creat 09/16/19 09/16/19 09/16/19 Range/Units 16:00 16:00 16:58 WBC (3.8-10.6) k/uL Neutrophils # (1.3-7.7) k/uL Lymphocytes # (1.0-4.8) k/uL Chloride (98-107) mmol/L Carbon Dioxide (22-30) mmol/L BUN (9-20) mg/dL Creatinine (0.66-1.25) mg/dL Glucose (74-99) mg/dL POC Glucose (mg/dL) 238 H (75-99) mg/dL Urine Protein 1+ H (Negative) Urine Glucose (UA) 3+ H (Negative) Urine Blood Trace H (Negative) Urine Mucus Rare H (None) /hpf Ur Random Microalbumin 22.3 H (0.0-1.9) mg/dL Microalb/Creat Ratio 334 H (0-30) mg/g Creat 09/16/19 09/17/19 Range/Units 20:10 07:14 WBC (3.8-10.6) k/uL Neutrophils # (1.3-7.7) k/uL Lymphocytes # (1.0-4.8) k/uL Chloride 115 H (98-107) mmol/L Carbon Dioxide 20 L (22-30) mmol/L BUN 34 H (9-20) mg/dL Creatinine 1.30 H (0.66-1.25) mg/dL Glucose (74-99) mg/dL POC Glucose (mg/dL) 299 H (75-99) mg/dL Urine Protein (Negative) Urine Glucose (UA) (Negative) Urine Blood (Negative) Urine Mucus (None) /hpf Ur Random Microalbumin (0.0-1.9) mg/dL Microalb/Creat Ratio (0-30) mg/g Creat Microbiology - Last 24 Hours (Table) 09/14/19 12:55 Blood Culture - Preliminary Blood No Growth after 48 hours Assessment and Plan Assessment: Influenza A pneumonia Tracheobronchitis Acute asthma exacerbated by influenza A infection Baseline chronic intermittent asthma History of asbestosis lung Intravascular volume depletion and dehydration Chronic renal failure stage III Diabetes mellitus Hyperglycemia Plan: Tamiflu Bronchodilator Oral steroids, recommend to taper and DC Gentle rehydration Follow renal functions closely Agree with discharge planning follow-up in office in 2-4 weeks Time with Patient: Greater than 30
[2019-09-17 11:46] LABS: Glucose,Whole Blood 184 mg/dL (75-99)
--- NOTE | 2019-09-17 12:04 | P.PN ---
Subjective Progress Note Date: 09/17/19 Follow-up for acute kidney injury. Objective - Vital Signs Vital signs: Vital Signs Temp 98.9 F 09/17/19 05:00 Pulse 80 09/17/19 11:51 Resp 20 09/17/19 05:00 BP 144/71 09/17/19 05:00 Pulse Ox 94 L 09/17/19 05:00 Intake & Output 09/16/19 09/17/19 09/17/19 17:59 06:59 18:59 Intake Total Balance Intake: Oral Other Other: Voiding Method Toilet # Voids - Exam No acute distress S1-S2 heard Lungs clear No edema - Labs CBC & Chem 7: 09/16/19 07:49 09/17/19 07:14 Labs: Abnormal Lab Results - Last 24 Hours (Table) 09/16/19 09/16/19 09/16/19 Range/Units 11:37 16:00 16:00 Chloride (98-107) mmol/L Carbon Dioxide (22-30) mmol/L BUN (9-20) mg/dL Creatinine (0.66-1.25) mg/dL POC Glucose (mg/dL) 258 H (75-99) mg/dL Urine Protein 1+ H (Negative) Urine Glucose (UA) 3+ H (Negative) Urine Blood Trace H (Negative) Urine Mucus Rare H (None) /hpf Ur Random Microalbumin 22.3 H (0.0-1.9) mg/dL Microalb/Creat Ratio 334 H (0-30) mg/g Creat 09/16/19 09/16/19 09/17/19 Range/Units 16:58 20:10 07:14 Chloride 115 H (98-107) mmol/L Carbon Dioxide 20 L (22-30) mmol/L BUN 34 H (9-20) mg/dL Creatinine 1.30 H (0.66-1.25) mg/dL POC Glucose (mg/dL) 238 H 299 H (75-99) mg/dL Urine Protein (Negative) Urine Glucose (UA) (Negative) Urine Blood (Negative) Urine Mucus (None) /hpf Ur Random Microalbumin (0.0-1.9) mg/dL Microalb/Creat Ratio (0-30) mg/g Creat 09/17/19 Range/Units 11:44 Chloride (98-107) mmol/L Carbon Dioxide (22-30) mmol/L BUN (9-20) mg/dL Creatinine (0.66-1.25) mg/dL POC Glucose (mg/dL) 184 H (75-99) mg/dL Urine Protein (Negative) Urine Glucose (UA) (Negative) Urine Blood (Negative) Urine Mucus (None) /hpf Ur Random Microalbumin (0.0-1.9) mg/dL Microalb/Creat Ratio (0-30) mg/g Creat Microbiology - Last 24 Hours (Table) 09/14/19 12:55 Blood Culture - Preliminary Blood No Growth after 48 hours Assessment and Plan Assessment: #1 nonoliguric acute kidney injury suspect prerenal process. #2 chronic kidney disease stage III with a baseline creatinine of 1.2-1.3 MG per DL suspected diabetes. #3 hypertension with chronic kidney disease #4 metabolic acidosis #5 influenza pneumonia on antibiotics Plan: #1 creatinine currently at baseline #2 hold lisinopril for now with acute kidney injury. Can be restarted as outpatient #3 avoid nephrotoxic agents and hypotensive episodes. #4 continue with IV fluids for now.
[2019-09-17 16:43] LABS: Glucose,Whole Blood 293 mg/dL (75-99)
--- NOTE | 2019-09-17 17:31 | P.PN ---
Subjective Progress Note Date: 09/17/19 Principal diagnosis: Influenza A pneumonia Severe acute tracheobronchitis Acute exacerbation of asthma Acute on chronic kidney disease 09/15/2019, patient seen eval examined during the rounds labs reviewed medications reviewed, care plan discussed, shortness of breath and wheezing and significantly improved, patient wishes to go home, agree with discharge planning with by mouth steroids antibiotics and Tamiflu, patient has been advised for social distance and avoidance going to public places for next several days until recovered completely, patient seems to understand 09/16/2019 Patient is seen and evaluated in room at bedside; patient is currently getting renal ultrasound done Remains on treatment for influenza and pneumonia; lab review shows improvement in creatinine from 1.69 yesterday down to 1.4; nephrology is following and recommending further evaluation of worsening renal failure with renal ultrasound and block for; we will continue with slow fluid hydration and monitor renal function and electrolytes 09/17/2019 Patient is seen and evaluated in follow-up; denies any shortness of breath; vital signs remained stable Labs are reviewed and patient renal function has trended down to Baseline; nephrology is following; patient remains on IV fluids for now; renal ultrasound done upon nephrology recommendations shows right kidney lower pole solid mass which is suspicious; this was discussed with patient in [facility]; he does not see an outpatient urologist and is agreeable to stay in the hospital and have urology consult for further recommendations Objective - Vital Signs Vital signs: Vital Signs Temp 98.0 F 09/17/19 14:01 Pulse 90 09/17/19 15:55 Resp 17 09/17/19 14:01 BP 139/88 09/17/19 14:01 Pulse Ox 94 L 09/17/19 14:01 Intake & Output 09/16/19 09/17/19 09/17/19 17:59 06:59 18:59 Intake Total 1620 Balance 1620 Intake: Oral 1620 Other Other: Voiding Method Toilet # Voids 4 - Exam PHYSICAL EXAMINATION: GENERAL: The patient is alert and oriented x3, not in any acute distress. Well developed, well nourished. HEENT: Pupils are round and equally reacting to light. EOMI. No scleral icterus. No conjunctival pallor. Normocephalic, atraumatic. No pharyngeal erythema. No th yromegaly. CARDIOVASCULAR: S1 and S2 present. No murmurs, rubs, or gallops. PULMONARY: Chest is clear to auscultation, no wheezing or crackles. ABDOMEN: Soft, nontender, nondistended, normoactive bowel sounds. No palpable organomegaly. MUSCULOSKELETAL: No joint swelling or deformity. EXTREMITIES: No cyanosis, clubbing, or pedal edema. NEUROLOGICAL: Gross neurological examination did not reveal any focal deficits. SKIN: No rashes. - Labs CBC & Chem 7: 09/16/19 07:49 09/17/19 07:14 Labs: Abnormal Lab Results - Last 24 Hours (Table) 09/16/19 09/16/19 09/16/19 Range/Units 16:00 16:58 20:10 Chloride (98-107) mmol/L Carbon Dioxide (22-30) mmol/L BUN (9-20) mg/dL Creatinine (0.66-1.25) mg/dL POC Glucose (mg/dL) 238 H 299 H (75-99) mg/dL Ur Random Microalbumin 22.3 H (0.0-1.9) mg/dL Microalb/Creat Ratio 334 H (0-30) mg/g Creat 09/17/19 09/17/19 09/17/19 Range/Units 07:14 11:44 16:40 Chloride 115 H (98-107) mmol/L Carbon Dioxide 20 L (22-30) mmol/L BUN 34 H (9-20) mg/dL Creatinine 1.30 H (0.66-1.25) mg/dL POC Glucose (mg/dL) 184 H 293 H (75-99) mg/dL Ur Random Microalbumin (0.0-1.9) mg/dL Microalb/Creat Ratio (0-30) mg/g Creat Microbiology - Last 24 Hours (Table) 09/14/19 12:55 Blood Culture - Preliminary Blood No Growth after 72 hours Assessment and Plan Assessment: Influenza A Acute tracheobronchitis Dehydration acute kidney injury Diabetes mellitus hypertension hyperlipidemia CVA/TIA diabetic neuropathy Deep venous thrombosis sleep apnea on CPAP/BiPAP Plan: This is a pleasant 69 years old male who presents with influenza A and tracheal bronchitis, start Tamiflu antibiotics, continue with steroids, bronchodilators and oxygen as needed and pulmonary consult, normal saline at 75 ml/hr Labs and medication were reviewed.. Continue same treatment. Continue with symptomatic treatment. Resume home medication. Monitor lytes and vitals. DVT and GI prophylaxis. Further recommendations of the clinical course of the patient DVT prophylaxis: Subcutaneous heparin GI Prophylaxis: Pepcid
[2019-09-17 20:24] LABS: Glucose,Whole Blood 246 mg/dL (75-99)
[2019-09-17] MEDS: INSULIN DETEMIR (LEVEMIR) 100 UNIT/ML SYR SQ SCH (20:32)
[2019-09-18 07:04] LABS: Glucose,Whole Blood 63 mg/dL (75-99)
[2019-09-18] MEDS: INSULIN ASPART (NovoLOG) 100 UNIT/ML VIAL SQ SCH ×7 (07:09→21:05)
[2019-09-18 07:12] LABS: Glucose,Whole Blood 85 mg/dL (75-99)
--- NOTE | 2019-09-18 07:13 | P.GSCN ---
History of Present Illness Consult date: 09/18/19 History of present illness: This is a pleasant 69-year-old gentleman who was admitted to the hospital a few days ago with influenza. He is doing much better and is about ready to be discharged home. He had an ultrasound during this admission which identified a 4 cm right lower pole solid mass consistent with a renal cell carcinoma. We are asked to see the patient for this. The patient is to be discharged home today. He is not having any problems with this mass. He denies weight loss nausea vomiting other than related to the flu. There's been no blood in the urine. He's had no flank pain. He has not had previous urologic issues. He had a computed tomography scan of the abdomen in 2014 without contrast that did not obviously identify the mass. A computed tomography scan of the chest in September of this year that did not go low enough to assess the lower pole of the kidney. Review of Systems All systems: negative - Constitutional Denies fever, Denies weight loss - EENT Eyes: denies blurred vision Ears, nose, mouth and throat: Denies dysphagia - Cardiovascular Denies chest pain, Denies shortness of breath - Respiratory Denies cough, Denies 7 - Gastrointestinal Reports as per HPI - Genitourinary Denies dysuria, Denies hematuria - Integumentary Denies rash, Denies unusual bruising - Neurological Denies headaches, Denies syncope - Hematologic/Lymphatic Denies easy bleeding, Denies easy bruising Past Medical History Past Medical History: Asthma, Chest Pain / Angina, CVA/TIA, Diabetes Mellitus, Deep Vein Thrombosis (DVT), GERD/Reflux, Hyperlipidemia, Hypertension, Pneumonia, Sleep Apnea/CPAP/BIPAP Additional Past Medical History / Comment(s): PAST HX INCLUDES: cardiac arrhythmia, hiatal hernia, hemorrhoids, Wound left foot,peripheral neuropathy, anemia, ,generalized vitiligo.ASBESTOSIS, TENDONS REMOVED FROM [facility] 04/30/16 History of Any Multi-Drug Resistant Organisms: MRSA Year Discovered:: 09/10/2015 MDRO Source:: Left Foot Past Surgical History: Adenoidectomy, Appendectomy, Orthopedic Surgery, Tonsillectomy Additional Past Surgical History / Comment(s): Amputation great toe and 3rd toe left foot, bilateral rotator cuff. TENDONS REMOVED FROM [facility] 04/30/16 Past Anesthesia/Blood Transfusion Reactions: No Reported Reaction Past Psychological History: Anxiety, Depression Smoking Status: Former smoker Past Alcohol Use History: None Reported Past Drug Use History: None Reported - Past Family History Father Family Medical History: CVA/TIA Additional Family Medical History / Comment(s): several cva Mother Family Medical History: Asthma, COPD Sister(s) Family Medical History: Cancer Additional Family Medical History / Comment(s): Breast Cancer Brother(s) Family Medical History: Cancer Additional Family Medical History / Comment(s): Prostate and bladder Cancer Medications and Allergies Home Medications Medication Instructions Recorded Confirmed Type amLODIPine BESYLATE/BENAZEPRIL 1 cap PO DAILY 04/20/16 09/14/19 History [Lotrel 10-20 MG] Insulin Aspart [NovoLOG Flexpen] 10 units SQ AC-TID 09/14/19 09/14/19 History Insulin Glargine,Hum.rec.anlog 30 unit SQ HS 09/14/19 09/14/19 History [Lantus Solostar] Allergies Allergy/AdvReac Type Severity Reaction Status Date / Time fentanyl AdvReac Severe Nausea & Verified 09/14/19 18:04 Vomiting hydrocodone bitartrate AdvReac Nausea & Verified 09/14/19 18:04 [From [place]] Vomiting vancomycin AdvReac Unknown Verified 09/14/19 18:04 Surgical - Exam Vital Signs Temp Pulse Resp BP Pulse Ox 98.7 F 79 18 152/75 97 09/14/19 12:20 09/14/19 12:20 09/14/19 12:20 09/14/19 12:20 09/14/19 12:20 - General well developed, well nourished, obese - Eyes PERRL - ENT no hearing loss - Neck trachea midline - Respiratory normal expansion, normal respiratory effort - Cardiovascular Rhythm: regular - Abdomen Abdomen: soft, non tender - Genitourinary normal penis with no external lesions, testicles present - Integumentary no rash, no growths - Neurologic normal coordination, normal sensation - Musculoskeletal normal posture - Psychiatric oriented to time, oriented to person, oriented to place, speech is normal, memory intact Results - Labs 09/16/19 07:49 09/17/19 07:14 Abnormal Lab Results - Last 24 Hours (Table) 09/17/19 09/17/19 09/17/19 Range/Units 07:14 11:44 16:40 Chloride 115 H (98-107) mmol/L Carbon Dioxide 20 L (22-30) mmol/L BUN 34 H (9-20) mg/dL Creatinine 1.30 H (0.66-1.25) mg/dL POC Glucose (mg/dL) 184 H 293 H (75-99) mg/dL 09/17/19 09/18/19 Range/Units 20:22 06:53 Chloride (98-107) mmol/L Carbon Dioxide (22-30) mmol/L BUN (9-20) mg/dL Creatinine (0.66-1.25) mg/dL POC Glucose (mg/dL) 246 H 63 L (75-99) mg/dL Microbiology - Last 24 Hours (Table) 09/14/19 12:55 Blood Culture - Preliminary Blood No Growth after 72 hours Diabetes panel 09/17/19 Range/Units 07:14 Sodium 141 (137-145) mmol/L Potassium 4.8 (3.5-5.1) mmol/L Chloride 115 H (98-107) mmol/L Carbon Dioxide 20 L (22-30) mmol/L BUN 34 H (9-20) mg/dL Creatinine 1.30 H (0.66-1.25) mg/dL Glucose 96 (74-99) mg/dL Calcium 9.2 (8.4-10.2) mg/dL Calcium panel 09/17/19 Range/Units 07:14 Calcium 9.2 (8.4-10.2) mg/dL Pituitary panel 09/17/19 Range/Units 07:14 Sodium 141 (137-145) mmol/L Potassium 4.8 (3.5-5.1) mmol/L Chloride 115 H (98-107) mmol/L Carbon Dioxide 20 L (22-30) mmol/L BUN 34 H (9-20) mg/dL Creatinine 1.30 H (0.66-1.25) mg/dL Glucose 96 (74-99) mg/dL Calcium 9.2 (8.4-10.2) mg/dL Adrenal panel 09/17/19 Range/Units 07:14 Sodium 141 (137-145) mmol/L Potassium 4.8 (3.5-5.1) mmol/L Chloride 115 H (98-107) mmol/L Carbon Dioxide 20 L (22-30) mmol/L BUN 34 H (9-20) mg/dL Creatinine 1.30 H (0.66-1.25) mg/dL Glucose 96 (74-99) mg/dL Calcium 9.2 (8.4-10.2) mg/dL - Imaging CT scan - abdomen: image reviewed CT scan - chest: image reviewed US - kidney/bladder: report reviewed, image reviewed Assessment and Plan Assessment: Impression: Right renal mass probable renal cell carcinoma. Medical illnesses as outlined in the past medical history. Recommendations: Ideally like to do a CAT scan with contrast to further evaluate this mass. His creatinine was 1.3 a few days ago however is be on this 34 consistent with being relatively dry. I will repeat his creatinine today prior to discharge in order to determine which next study to do. If I cannot do a computed tomography scan with contrast I probably do an MRI. He most likely will require a right radical nephrectomy. I would like to see the patient in one week in my office. This has been discussed at length the patient understands and consents.
[2019-09-18] MEDS: AZITHROMYCIN 500 MG TAB PO SCH (08:49)
[2019-09-18] MEDS: SODIUM BICARBONATE TAB 650 MG TAB PO SCH ×2 (08:49→20:51)
[2019-09-18] MEDS: HEPARIN SODIUM,PORCINE 5,000 UNIT/ML 1 ML VIAL SQ SCH ×2 (08:49→20:52)
[2019-09-18] MEDS: amLODIPine 10 MG TAB PO SCH (08:50)
[2019-09-18] MEDS: predniSONE 20 MG TAB PO SCH (08:50)
[2019-09-18] MEDS: FAMOTIDINE 20 MG TAB PO SCH (08:50)
[2019-09-18] MEDS: SODIUM CHLORIDE 0.9% 1,000 ML IV SCH ×2 (08:50→21:07)
[2019-09-18] MEDS: OSELTAMIVIR 60 MG/10 ML ORAL SYRINGE PO SCH ×2 (08:50→20:51)
[2019-09-18] MEDS: IPRATROPIUM-ALBUTEROL 3 ML NEB INHALATION SCH ×4 (09:18→21:19)
[2019-09-18 09:19] LABS: Potassium 3.9 mmol/L (3.5-5.1)
[2019-09-18 16:57] LABS: Glucose,Whole Blood 117 mg/dL (75-99)
[2019-09-18 17:01] LABS: Glucose,Whole Blood 301 mg/dL (75-99)
--- NOTE | 2019-09-18 20:40 | P.PN ---
Subjective This is a pleasant 69 years old male with past medical history of diabetes mellitus, hypertension, hyperlipidemia, CVA/TIA, asthma, deep venous thrombosis, sleep apnea on CPAP BiPAP, diabetic neuropathy. Presents with respiratory symptoms with coughing and some clear phlegm, some shortness of breath and chest pain with coughing, it looks malaise and generalized body aches and his been going on for last 2-3 days, he went to see his PCP Dr. Dumont and blood pressure was on the low side and therefore referred to the hospital. He also follows up with Dr. Jeronimo for chemical-induced asthma On the presentation vitals are stable, his oxygen saturating 97% on room air. Influenza a is detected, cbc unremarkable with normal wbc, creatinine elevated 1.69, glu 203 cxr: no acute process by radiology 09/17 Pt has been evaluated by urology for his right kidney mass, pt is aware of this mass, urology team suspection RCC and require further imaging (CT vs MRI) , pt will need to do follow up as outpt with the urologist and he agree creatinine to WNL today Objective - Vital Signs Vital signs: Vital Signs Temp 98.4 F 09/18/19 12:20 Pulse 94 09/18/19 12:20 Resp 18 09/18/19 12:20 BP 140/77 09/18/19 12:20 Pulse Ox 94 L 09/18/19 12:20 Intake & Output 09/18/19 09/18/19 09/19/19 06:59 18:59 06:59 Other: Voiding Method Toilet # Voids 2 1 - Exam GENERAL: The patient is alert and oriented x3, not in any acute distress. Well developed, well nourished. HEENT: Pupils are round and equally reacting to light. EOMI. No scleral icterus. No conjunctival pallor. Normocephalic, atraumatic. No pharyngeal erythema. No thyromegaly. CARDIOVASCULAR: S1 and S2 present. No murmurs, rubs, or gallops. PULMONARY: Chest is clear to auscultation,. Bilateral expiratory wheezing ABDOMEN: Soft, nontender, nondistended, normoactive bowel sounds. No palpable organomegaly. MUSCULOSKELETAL: No joint swelling or deformity. EXTREMITIES: No cyanosis, clubbing, or pedal edema. NEUROLOGICAL: Gross neurological examination did not reveal any focal deficits. SKIN: No rashes. No petechiae - Labs CBC & Chem 7: 09/16/19 07:49 09/18/19 08:34 Labs: Abnormal Lab Results - Last 24 Hours (Table) 09/17/19 09/18/19 09/18/19 Range/Units 20:22 06:53 08:34 Chloride 109 H (98-107) mmol/L Carbon Dioxide 20 L (22-30) mmol/L BUN 25 H (9-20) mg/dL Glucose 137 H (74-99) mg/dL POC Glucose (mg/dL) 246 H 63 L (75-99) mg/dL 09/18/19 09/18/19 Range/Units 11:44 16:59 Chloride (98-107) mmol/L Carbon Dioxide (22-30) mmol/L BUN (9-20) mg/dL Glucose (74-99) mg/dL POC Glucose (mg/dL) 117 H 301 H (75-99) mg/dL Microbiology - Last 24 Hours (Table) 09/14/19 12:55 Blood Culture - Preliminary Blood No Growth after 96 hours Assessment and Plan Assessment: right kidney mass Influenza A, improved Acute tracheobronchitis, improving Dehydration, improving acute kidney injury, improved Diabetes mellitus hypertension hyperlipidemia CVA/TIA diabetic neuropathy Deep venous thrombosis sleep apnea on CPAP/BiPAP Plan: This is a pleasant 69 years old male who presents with influenza A and tracheal bronchitis, c/w antibiotics, continue with steroids, bronchodilators and oxygen as needed and pulmonary consult, normal saline is stoped, need outpt follow up for his right kid mass with urology service and pt agree Labs and medication were reviewed.. Continue same treatment. Continue with symptomatic treatment. Resume home medication. Monitor lytes and vitals. DVT and GI prophylaxis. Further recommendations of the clinical course of the patient DVT prophylaxis: Subcutaneous heparin GI Prophylaxis: Pepcid PT/OT: Pending Prognosis is guarded possible dc in 24 hrs
[2019-09-18 21:04] LABS: Glucose,Whole Blood 201 mg/dL (75-99)
[2019-09-18] MEDS: INSULIN DETEMIR (LEVEMIR) 100 UNIT/ML SYR SQ SCH (21:05)
[2019-09-18 22:32] VITALS: RESP 16
[2019-09-19 04:58] VITALS: BP 164/79; TEMP 97.9
--- NOTE | 2019-09-19 05:49 | PN ---
PROGRESS NOTE He was seen on 09/18/2019. He is less short of breath. On physical examination, he has a respiratory rate of 16, pulse rate of 104, temperature 97.3, blood pressure 135/78, O2 saturation on room air is 94%. HEENT is unremarkable. Chest reveals prolonged exhalation. No clear wheeze. Cardiovascular system reveals an S1, S2. Abdomen is soft. There is no pedal edema. Labs and medications were reviewed. IMPRESSION AT THIS TIME: 1. Influenza A. 2. Asthma with acute exacerbation. 3. History of asbestosis related lung injury. 4. Probable right renal cell carcinoma. At this point in time from a pulmonary standpoint, would continue bronchodilators, systemic steroids in the form of prednisone with a slow taper, antibiotics and aerosolized steroids and Tamiflu. Prognosis is fair. MMODL / IJN: [id number] /
[2019-09-19 07:29] LABS: Glucose,Whole Blood 69 mg/dL (75-99)
[2019-09-19 07:49] LABS: Glucose,Whole Blood 76 mg/dL (75-99)
[2019-09-19] MEDS ORDERED: BUDESONIDE 0.5 MG/2 ML NEBU INHALATION SCH (08:00)
[2019-09-19] MEDS: INSULIN ASPART (NovoLOG) 100 UNIT/ML VIAL SQ SCH ×4 (08:18→12:33)
[2019-09-19] MEDS: HEPARIN SODIUM,PORCINE 5,000 UNIT/ML 1 ML VIAL SQ SCH (08:22)
[2019-09-19] MEDS: predniSONE 20 MG TAB PO SCH (08:22)
[2019-09-19] MEDS: SODIUM BICARBONATE TAB 650 MG TAB PO SCH (08:22)
[2019-09-19] MEDS: FAMOTIDINE 20 MG TAB PO SCH (08:22)
[2019-09-19] MEDS: AZITHROMYCIN 500 MG TAB PO SCH (08:22)
[2019-09-19] MEDS: OSELTAMIVIR 60 MG/10 ML ORAL SYRINGE PO SCH (08:23)
[2019-09-19] MEDS: amLODIPine 10 MG TAB PO SCH (08:23)
[2019-09-19] MEDS: IPRATROPIUM-ALBUTEROL 3 ML NEB INHALATION SCH ×2 (09:27→12:14)
[2019-09-19 09:48] VITALS: PULSE 88
[2019-09-19 11:50] LABS: Glucose,Whole Blood 280 mg/dL (75-99)
[2019-09-19] MEDS: SODIUM CHLORIDE 0.9% 1,000 ML IV SCH (12:24)
--- NOTE | 2019-09-19 17:44 | PN ---
PROGRESS NOTE Patient is seen for followup for acute kidney injury. His kidney function has improved significantly. Creatinine down to 1.06 from 1.69 on initial admission. Patient was admitted for influenza A. He is feeling well and is going home today. PHYSICAL EXAMINATION: On examination, blood pressure was 164/79, heart rate 92 per minute, he is afebrile. Examination of the heart S1, S2. Examination of the lungs, bilateral breath sounds are heard. Abdomen is soft, nontender. Examination of lower extremities shows trace edema bilaterally. STOCK MANAGER exam grossly intact. LAB: Show sodium 138, potassium 3.9, chloride 109, CO2 is 20, BUN 25, creatinine 1.06. ASSESSMENT: 1. Acute kidney injury secondary to underlying infection and influenza, currently improved. 2. Rule out chronic kidney disease. 3. Influenza A status post Tamiflu, maintained on antibiotics as well. 4. Metabolic acidosis, now resolved. PLAN: Patient can be discharged from nephrology standpoint. He does not need the sodium bicarb for now. Follow up with repeat labs as outpatient for the renal function. MMODL / IJN: [id number] /
--- NOTE | 2019-09-19 20:15 | P.DS ---
Providers Date of admission: 09/14/19 14:33 Attending physician: Corby Haley MD Consults: 09/14/19 13:24 Consult Physician Urgent Consulting Provider: Armen Cervantes Consult Reason/Comments: influenza Do you want consulting provider notified?: Yes 09/14/19 16:01 Consult Physician Routine Consulting Provider: Jurgen Luque Consult Reason/Comments: florentino on possible CKD Do you want consulting provider notified?: Yes 09/17/19 16:23 Consult Physician Routine Consulting Provider: Dayday Peterson Consult Reason/Comments: New right renal mass Do you want consulting provider notified?: Yes Primary care physician: Katey Dumont Hospital Course: Diagnoses: Influenza A Acute tracheobronchitis Right kidney mass suspicious for tumor, patient is aware Dehydration acute kidney injury Diabetes mellitus hypertension hyperlipidemia CVA/TIA diabetic neuropathy Deep venous thrombosis sleep apnea on CPAP/BiPAP Hospital course: This is a pleasant 69 years old male with past medical history of diabetes tonya itus, hypertension, hyperlipidemia, CVA/TIA, asthma, deep venous thrombosis, sleep apnea on CPAP BiPAP, diabetic neuropathy. Presents with respiratory symptoms with coughing and some clear phlegm, some shortness of breath and chest pain with coughing, it looks malaise and generalized body aches and his been going on for last 2-3 days, he went to see his PCP Dr. Dumont and blood pressure was on the low side and therefore referred to the hospital. He also follows up with Dr. cervantes for chemical-induced asthma, who was a test was positive and patient was started on Tamiflu as well as Zithromax for tracheobronchitis and asthma exacerbation with treatment with steroids, the patient showed interval improvement and his breathing is back to normal with no exertional dyspnea, he still have some coughing. No chest pain. Chest x-ray: No acute process. Patient has been evaluated by pulmonary service and cleared her for discharge. Also in deputy director evaluated the patient for acute kidney injury on chronic kidney disease, mostly diabetic, has creatinine went back to baseline at 1.06 prior to discharge, however renal ultrasound showed right lower kidney mass suspicious for malignancy, patient is aware of the mass and possible risk of cancer. Patient is been evaluated by Dr. Matthew and he wants to see him in the office. Patient agrees with the appointments with Dr. Matthew Patient treated for discharge by nephrology and pulmonary service Problems and management plan were discussed with the patient and he verbalized understanding and acceptance Patient was found stable and can be discharged home however he needs follow-up as an outpatient. Patient was instructed to follow up with PCP within one week and patient agrees. Patient agrees with the appointments with his PCP Dr. Dumont on 09/[address] birmingham on 09/27 and states he will follow-up Patient did not want me to talk to the family states there is no family Gen: patient is a AAOx3, no distress CVS: S1-S2, RRR, no murmur Lungs: B/L CTA, no wheezing Abdomen: soft, no distention, no tenderness, positive bowel sounds Extremity: no leg edema or induration Time spent more than 35 minutes Patient Condition at Discharge: Fair Plan - Discharge Summary New Discharge Prescriptions: New Famotidine [Pepcid] 20 mg PO DAILY #30 tab Budesonide [Pulmicort] 0.5 mg INHALATION RT-BID #20 ml Oseltamivir 6Mg/ml Oral Susp [Tamiflu] 30 mg PO BID #2 ml Albuterol Inhaler [Ventolin Hfa Inhaler] 1 - 2 puff INHALATION RT-Q6H PRN #1 inhaler PRN Reason: Shortness Of Breath Or Wheezing predniSONE 10 mg PO DIRECTED #24 tab Continue amLODIPine BESYLATE/BENAZEPRIL [Lotrel 10-20 MG] 1 cap PO DAILY Insulin Glargine,Hum.rec.anlog [Lantus Solostar] 30 unit SQ HS Insulin Aspart [NovoLOG Flexpen] 10 units SQ AC-TID Discharge Medication List amLODIPine BESYLATE/BENAZEPRIL [Lotrel 10-20 MG] 1 cap PO DAILY 04/20/16 [History] Insulin Aspart [NovoLOG Flexpen] 10 units SQ AC-TID 09/14/19 [History] Insulin Glargine,Hum.rec.anlog [Lantus Solostar] 30 unit SQ HS 09/14/19 [History] Albuterol Inhaler [Ventolin Hfa Inhaler] 1 - 2 puff INHALATION RT-Q6H PRN #1 inhaler 09/19/19 [Rx] Budesonide [Pulmicort] 0.5 mg INHALATION RT-BID #20 ml 09/19/19 [Rx] Famotidine [Pepcid] 20 mg PO DAILY #30 tab 09/19/19 [Rx] Oseltamivir 6Mg/ml Oral Susp [Tamiflu] 30 mg PO BID #2 ml 09/19/19 [Rx] predniSONE 10 mg PO DIRECTED #24 tab 09/19/19 [Rx] Follow up Appointment(s)/Referral(s): Armen Cervantes MD [STAFF PHYSICIAN] - 1 Week (office closed today) Katey Dumont MD [Primary Care Provider] - 09/26/19 9:00 am Dayday Peterson MD [STAFF PHYSICIAN] - 09/28/19 10:00 am (new renal cancer diagnosis) Patient Instructions/Handouts: Type 2 Diabetes in Adults: New Diagnosis (DC), Influenza (DC), Renal Cancer (DC) Discharge Disposition: HOME SELF-CARE
--- NOTE | 2019-09-22 11:54 | CDI ---
Documentation Clarification Form Date: 09/22/19 From: Emily Magaña Phone: If you have a question about this query, please contact Florinda Mo, [place] Opener at [phone] between 8am and 5pm. Admit Date: 09/13/09 Discharge Date: 09/19/19 Patient Name: Jovany Ny Visit Number: [id number] ATTENTION: The Clinical Documentation Specialists (CDI) and [employer] Coding Staff appreciate your assistance in clarifying documentation. Please respond to the clarification below the line at the bottom and electronically sign. The CDI & [employer] Coding staff will review the response and follow-up if needed. Please note: Queries are made part of the Legal Health Record. If you have any questions, please contact the author of this message via ITS. Dear Dr. Haley The patient presented with the following respiratory symptom: cough and nasal congestion. Respiratory failure is documented in the ED note. History/Risk Factors: History of asthma, Influenza A Tobacco use: Previous smoker Home oxygen: None Clinical Indicators: Some shortness of breath and chest pain Vital signs: T. 98.7, P. 79, R 18, BP 152/75 Pulse oximetry: 97% on admit, 90% on 09/14 Lung/Breathing assessment: Chest is clear to auscultation. Bilateral expiratory wheezing. Treatment: Breathing tx: Duoneb O2 on 09/14 when pulse ox dropped to 90% In your professional opinion, can you please clarify if these findings signify one of the following conditions? Acute Respiratory Failure Acute Respiratory Distress Acute Respiratory Insufficiency Other Diagnosis, please specify Unable to determine Specificity: If known, further specify (if known): With hypercapnia? (pCO2 >50 and pH <7.35) With hypoxia? (pO2 <60 mm Hg or SpO2 <91% on room air) Present on admission Yes condition present on admission No condition not present on admission when i saw the pt he did not have resp failure MTDD
--- NOTE | 2019-09-22 12:18 | CDI ---
Documentation Clarification Form Date: 09/22/19 From: Emily Magaña Phone: If you have a question about this query, please contact Florinda Mo, Documentation Improvement Specialist at [phone] between 8am and 5pm. Admit Date: 09/14/19 Discharge Date:09/19/19 Patient Name: Jovany Ny Visit Number: [id number] ATTENTION: The Clinical Documentation Specialists (CDI) and [facility] Coding Staff appreciate your assistance in clarifying documentation. Please respond to the clarification below the line at the bottom and electronically sign. The CDI & [facility] Coding staff will review the response and follow-up if needed. Please note: Queries are made part of the Legal Health Record. If you have any questions, please contact the author of this message via ITS. Dear Dr. Haley The diagnosis of influenza A pneumonia was documented in Dr. Barahona's progress notes and pulmonology consult and progress notes, but is not noted in your H&P or discharge summary. Acute bronchitis is documented in your H&P and discharge summary. History/Risk Factors: Influenza A, asthma exacerbation, asbestosis Clinical Indicators: Shortness of breath and chest pain, cough Vital signs: T. 98.7, P. 79, R. 18, BP 152/75 WBC/left shift: 3/5 - 5.7, 3/7 - 12.4; left shift 4.5 X-ray: CXR: Chronic changes with no acute cardiopulmonary process. Lung/Breathing assessment: Chest is clear to auscultation. Bilateral expiratory wheezing Treatment: O2 - 3 liters on 09/14, Breathing tx: Duoneb Medication: PO Zithromax, Tamiflu In order to capture the severity of condition, please clarify if the condition signifies and you are treating for: Influenza A with acute bronchitis Influenza A pneumonia Other, please specify Clinically unable to determine Influenza A with acute bronchitis MTDD
== END 2019-09-19 13:45 | disposition home or self-care (01) | DRG 194 ==
LOC: EC 12:16 → 6NMEDSUR 14:33
PROVIDERS: ADMIT Internal Medicine; ATTEND Internal Medicine
DX: J10.1 Influenza due to other identified influenza virus with other respiratory manifestations (principal); C64.1 Malignant neoplasm of right kidney, except renal pelvis; E87.2 Acidosis; J45.21 Mild intermittent asthma with (acute) exacerbation; N17.9 Acute kidney failure, unspecified; E11.22 Type 2 diabetes mellitus with diabetic chronic kidney disease; E11.40 Type 2 diabetes mellitus with diabetic neuropathy, unspecified; N18.3 Chronic kidney disease, stage 3 (moderate); J20.9 Acute bronchitis, unspecified; E11.65 Type 2 diabetes mellitus with hyperglycemia; E78.5 Hyperlipidemia, unspecified; E86.0 Dehydration; F32.9 Major depressive disorder, single episode, unspecified; F41.9 Anxiety disorder, unspecified; G47.33 Obstructive sleep apnea (adult) (pediatric); I12.9 Hypertensive chronic kidney disease with stage 1 through stage 4 chronic kidney disease, or unspecified chronic kidney disease; J61 Pneumoconiosis due to asbestos and other mineral fibers; K21.9 Gastro-esophageal reflux disease without esophagitis; K44.9 Diaphragmatic hernia without obstruction or gangrene; K64.9 Unspecified hemorrhoids; L80 Vitiligo; E86.9 Volume depletion, unspecified; Z88.1 Allergy status to other antibiotic agents; Z88.5 Allergy status to narcotic agent; Z79.4 Long term (current) use of insulin; Z79.82 Long term (current) use of aspirin; Z79.899 Other long term (current) drug therapy; Z87.891 Personal history of nicotine dependence; Z86.73 Personal history of transient ischemic attack (TIA), and cerebral infarction without residual deficits; Z86.718 Personal history of other venous thrombosis and embolism; Z86.14 Personal history of Methicillin resistant Staphylococcus aureus infection; Z87.01 Personal history of pneumonia (recurrent); Z90.49 Acquired absence of other specified parts of digestive tract; Z89.412 Acquired absence of left great toe; Z89.422 Acquired absence of other left toe(s); Z80.3 Family history of malignant neoplasm of breast; Z80.52 Family history of malignant neoplasm of bladder; Z82.3 Family history of stroke; Z82.5 Family history of asthma and other chronic lower respiratory diseases; Z80.42 Family history of malignant neoplasm of prostate
CPT/HCPCS: 36415; 71046; 76770; 80048; 81001; 82043; 82570; 85025; 87040; 87324; 87502; 94640; 94760; 96374; 99284

== ENCOUNTER → 2019-10-06 | Outpatient (CLI) | payer MEDICARE ==
--- NOTE | 2019-10-06 14:20 | CT ---
EXAMINATION TYPE: CT abdomen pelvis wo con DATE OF EXAM: 10/06/2019 COMPARISON: Abnormal renal ultrasound dated 09/16/2019 HISTORY: right side renal mass, abnormal ultrasound CT DLP: 1130.2 mGycm Automated exposure control for dose reduction was used. TECHNIQUE: Helical acquisition of images was performed from the lung bases through the pelvis. FINDINGS: There is limited evaluation of both the hollow and solid viscera given lack of intravenous and oral contrast. LUNG BASES: Mild fibrotic changes of the lung bases and minimal bibasilar symmetrical bronchiectasis. Scattered areas of atelectasis and subpleural deposition of fat. LIVER/GB: Subtle punctate layering calculi are seen within the gallbladder proximal body and neck. No right upper quadrant fat stranding. Unenhanced liver is unremarkable in morphology. PANCREAS: Mild pancreatic parenchymal atrophy without ductal dilatation. SPLEEN: No significant abnormality is seen. ADRENALS: There is an indeterminate 1.6 cm right adrenal gland lesion does meet criteria for a benign adenoma on noncontrast CT. There is some prominence of the lateral limb of the left adrenal gland on image 43 however this doesn't meet criteria for a benign adenoma and measures approximately 1 cm. KIDNEYS: There is a solid right lower pole renal mass with an average Hounsfield unit of 40 measuring 4.3 x 4.0 x 4.0 cm and anterior posterior by transverse and craniocaudal dimension. This is exophyti c from the lower pole but does oppose multiple lower pole calyces. This does not approach the right r enal vein. Emanating from the superior pole the right kidney there is a 2.5 cm renal lesion that has an average Hounsfield unit of 29 and could represent a proteinaceous and/or hemorrhagic cyst as there appears to be increased through transmission on the prior ultrasound of 09/16/2019. No hydronephrosis or nephrolithiasis are seen of either kidney. Very small urachal remnant from the u rinary bladder. FREE AIR: No free air is visualized ADENOPATHY: No greater than 1 cm short axis lymph node in the abdomen or pelvis. OSSEOUS STRUCTURES: Mild multilevel degenerative change of the spine. No suspicious osseous lesion s een. Probable 4 mm right bone island of the superior acetabulum. This is marked on image 126. BOWEL: There is a small hiatal hernia and herniation of mesenteric fat into the posterior mediastinu m. Diastases recti is seen. No dilated large or small bowel. Numerous colonic diverticula without per icolonic fat stranding. Few calcified structures in the mesentery such as on image 47, 67, 70, and 73 may represent calcified lymph nodes. These are also seen in the pelvis such as on image 128. OTHER: Extensive atherosclerosis is seen of the abdominal aorta and its branches. IMPRESSION: 1. SOLID SUSPICIOUS RIGHT LOWER POLE RENAL MASS THAT SHOULD BE CONSIDERED NEOPLASM UNTIL PROVEN OTHER MONAE. PERCUTANEOUS BIOPSY OR OTHER SURGICAL INTERVENTION IS RECOMMENDED. THIS DOES ABUT INFERIOR RIGH T RENAL CALYCES BUT HAS NO ABUTMENT WITH THE RIGHT RENAL VEIN. NO SURROUNDING LOCAL ADENOPATHY. 2. SLIGHTLY HYPERDENSE RIGHT RENAL LESION OF THE SUPERIOR POLE APPEARS TO HAVE CYSTIC CHARACTERISTICS ON ULTRASOUND AND THEREFORE LIKELY REPRESENTS A PROTEINACEOUS AND/OR HEMORRHAGIC CYST. 3. INDETERMINATE 1.6 CM RIGHT ADRENAL GLAND LESION THAT DOES NOT MEET CRITERIA FOR BENIGN ADENOMA ON NONENHANCED CT. EITHER THREE-PHASE ENHANCED CT ABDOMEN OR MRI ARE NECESSARY FOR FURTHER CHARACTERIZAT ION. BENIGN-APPEARING LIPID RICH LEFT ADRENAL ADENOMA OR MYELOLIPOMA. 4. PROBABLE PUNCTATE RIGHT SUPERIOR ACETABULAR BONE ISLAND. 5. SMALL HIATAL HERNIA.
== END | disposition home or self-care (01) ==
LOC: RADCTMAIN 11:30
PROVIDERS: ATTEND Urology
DX: K44.9 Diaphragmatic hernia without obstruction or gangrene (principal); Z88.1 Allergy status to other antibiotic agents; D41.11 Neoplasm of uncertain behavior of right renal pelvis
CPT/HCPCS: 36415; 74176; 82565; 84520

== ENCOUNTER → 2019-10-19 | Outpatient (CLI) | payer MEDICARE ==
--- NOTE | 2019-10-19 09:50 | XR ---
EXAMINATION TYPE: XR chest 2V DATE OF EXAM: 10/19/2019 COMPARISON: 09/14/2019 INDICATION: Presurgical testing history of this asbestos exposure, right renal cancer TECHNIQUE: Frontal and lateral views of the chest are obtained. FINDINGS: The heart size is mildly prominent. The pulmonary vasculature is normal. The lungs are clear. Some subtle pleural plaquing appears to be along the right chest margin. Some p leural plaquing appears to be present along the left lateral chest margin. No suspicious infiltrates are evident. IMPRESSION: 1. Suggestion of bilateral pleural plaquing which can be compatible with the patient's asbestos expos ure history. 2. Mild prominence of the heart size.
[2019-10-19 10:03] LABS: Basophils # (A) 0.1 k/uL (0-0.2); Basophils % (A) 1 %; Eosinophils # (A) 0.4 k/uL (0-0.7); Eosinophils % (A) 6 %; HGB 14.8 gm/dL (13.0-17.5); Lymphocytes # (A) 0.8 k/uL (1.0-4.8); Lymphocytes % (A) 12 %; MCHC 32.1 g/dL (31.0-37.0); MCV 90.4 fL (80.0-100.0); Mean Platelet Volume 6.7; Monocytes # (A) 0.4 k/uL (0-1.0); Monocytes % (A) 6 %; Neutrophils # (A) 5.1 k/uL (1.3-7.7); Neutrophils % (A) 72 %; Platelet Count 295 k/uL (150-450); RBC 5.08 m/uL (4.30-5.90); RDW 13.4 % (11.5-15.5); WBC 7.1 k/uL (3.8-10.6)
[2019-10-19 10:20] LABS: Appearance,Urine Clear (Clear); Bilirubin,Urine Negative (Negative); Blood,Urine Negative (Negative); Color,Urine Yellow; Glucose,Urine (UA) Negative (Negative); Ketones,Urine Negative (Negative); Leukocyte Esterase,Urine Negative (Negative); Nitrite,Urine Negative (Negative); PH, Urine 5.5 (5.0-8.0); Protein,Urine Trace (Negative); Specific Gravity,Urine 1.013 (1.001-1.035); Urobilinogen,Urine <2.0 mg/dL (<2.0)
[2019-10-19 10:40] LABS: Albumin 4.1 g/dL (3.5-5.0); Calcium 9.4 mg/dL (8.4-10.2); Potassium 5.3 mmol/L (3.5-5.1); Total Bilirubin 0.6 mg/dL (0.2-1.3); Total Protein 7.1 g/dL (6.3-8.2)
== END | disposition home or self-care (01) ==
LOC: LABPAT 09:11
PROVIDERS: ATTEND Urology
DX: Z01.818 Encounter for other preprocedural examination (principal); Z01.810 Encounter for preprocedural cardiovascular examination; I10 Essential (primary) hypertension; R06.02 Shortness of breath; E11.9 Type 2 diabetes mellitus without complications; R35.0 Frequency of micturition; D41.01 Neoplasm of uncertain behavior of right kidney
CPT/HCPCS: 36415; 71046; 80053; 81003; 85025; 87086; 93005

== ENCOUNTER → 2019-11-13 | Outpatient (CLI) | payer MEDICARE | END | disposition home or self-care (01) | LOC: LABWHC1 09:45 | PROVIDERS: ATTEND Urology | DX: U07.1 COVID-19 (principal) | CPT/HCPCS: 87635 ==

== ENCOUNTER 2019-11-15 09:26 | Inpatient (IN) | payer MEDICARE ==
[2019-11-13 14:05] VITALS: BMI 34.2
--- NOTE | 2019-11-14 19:47 | P.GSHP ---
History of Present Illness H&P Date: 11/14/19 69 yo male who was in [facility] recently with the flu. He had an abdominal us that sahowed a 4 cm rlp renal masss c/w carcinoma. The patient is a diabetic and has a cr of 1.67. Upon reviewing the ct scan in all views it appears that a partial nephrectomy could be performed. I contacted Dr Franck Garay and he said he could do a RA partial nephrectomy. He comes for this procedure. The risks and complications have been discussed.vthe risks of covid have been discussed. - Constitutional Constitutional: Denies chills, Denies fever - EENT Eyes: denies blurred vision, denies pain Ears, nose, mouth and throat: Denies headache, Denies sore throat - Cardiovascular Cardiovascular: Denies chest pain, Denies shortness of breath - Respiratory Respiratory: Denies cough, Denies 7 - Gastrointestinal Gastrointestinal: Denies abdominal pain, Denies diarrhea, Denies nausea, Denies vomiting - Genitourinary (Female) Genitourinary: Denies dysuria, Denies hematuria - Genitourinary (Male) Genitourinary: Denies dysuria, Denies hematuria - Musculoskeletal Musculoskeletal: Denies myalgias - Integumentary Integumentary: Denies pruritus, Denies rash - Neurological Neurological: Denies numbness, Denies weakness - Psychiatric Psychiatric: Denies anxiety, Denies depression - Endocrine Endocrine: Denies fatigue, Denies weight change Past Medical History Past Medical History: Asthma, Cancer, Chest Pain / Angina, Diabetes Mellitus, Deep Vein Thrombosis (DVT), GERD/Reflux, Hyperlipidemia, Hypertension, Pneumonia, Sleep Apnea/CPAP/BIPAP Additional Past Medical History / Comment(s): Hx cardiac arrhythmia, hiatal hernia, hemorrhoids, states small sore on the bottom of left foot.,peripheral neuropathy, anemia, ,generalized vitiligo. ASBESTOSIS, sleep apnea-no machine, states left foot swollen., Kidney cancer. , states hx blood clot in left shoulder from PICC line., Pt denies cva/tia but states episode where he had facial drooping that resolved after a few months-possible bells palsey. History of Any Multi-Drug Resistant Organisms: MRSA Date of last positivie culture/infection: 09/10/2015 MDRO Source:: Left Foot Past Surgical History: Adenoidectomy, Appendectomy, Orthopedic Surgery, Tonsillectomy Additional Past Surgical History / Comment(s): Amputation great toe and 3rd toe left foot, bilateral rotator cuff. TENDONS REMOVED FROM LLE 04/30/16 Past Anesthesia/Blood Transfusion Reactions: No Reported Reaction Past Psychological History: Anxiety, Depression Additional Psychological History / Comment(s): . Smoking Status: Former smoker Past Alcohol Use History: None Reported Additional Past Alcohol Use History / Comment(s): smoker for 30 years 1 ppd quit 1998 Past Drug Use History: None Reported - Past Family History Father Family Medical History: CVA/TIA Additional Family Medical History / Comment(s): several cva Mother Family Medical History: Asthma, COPD Sister(s) Family Medical History: Cancer Additional Family Medical History / Comment(s): Breast Cancer Brother(s) Family Medical History: Cancer Additional Family Medical History / Comment(s): Prostate and bladder Cancer Medications and Allergies Home Medications Medication Instructions Recorded Confirmed Type Atenolol [Tenormin] 25 mg PO DAILY 10/20/19 11/13/19 History Gabapentin [Neurontin] 300 mg PO DAILY 10/20/19 11/13/19 History Insulin Aspart [NovoLOG Flexpen] 10 units SQ TID-W/MEALS 10/20/19 11/13/19 History Insulin Glargine [Lantus] 30 unit SQ HS 10/20/19 11/13/19 History amLODIPine BESYLATE/BENAZEPRIL 2 tab PO DAILY 10/20/19 11/13/19 History [amLODIPine BESYLATE/BENAZEPRIL 5-20 mg] Allergies Allergy/AdvReac Type Severity Reaction Status Date / Time fentanyl AdvReac Severe Nausea & Verified 11/13/19 13:33 Vomiting hydrocodone bitartrate AdvReac Nausea & Verified 11/13/19 13:33 [From [place]] Vomiting vancomycin AdvReac Unknown Verified 11/13/19 13:33 Surgical - Exam - General well developed, well nourished, no distress - Eyes PERRL - ENT no hearing loss - Neck trachea midline - Respiratory normal expansion, normal respiratory effort - Cardiovascular Rhythm: regular - Abdomen Abdomen: soft, non tender - Genitourinary testicles present - Integumentary no rash, no growths - Musculoskeletal normal gait, normal posture - Psychiatric oriented to time, oriented to person, oriented to place, speech is normal, memory intact Results - Imaging CT scan - abdomen: report reviewed, image reviewed CT scan - pelvis: report reviewed, image reviewed Assessment and Plan Assessment: Impression: Right renal mass consistent with renal carcinoma, multiple medical illnesses including DM CRF HTN Asbestosis. Plan. Robotic assisted laparoscopic partial nephrectomy right
[~2019-11-15 09:26] MED LIST: DEXAMETHASONE SOD PHOSPHATE 10 MG/ML 1 ML VIAL IV ONE; LIDOCAINE 1% (10MG/ML) FOR IV START INTRADERMA PRN; ONDANSETRON 4 MG/2 ML VIAL IVP ONE; SCOPOLAMINE 1.5MG/72HR PATCH TRANSDERM ONE
[2019-11-15 10:35] LABS: Glucose,Whole Blood 127 mg/dL (75-99)
[2019-11-15] MEDS: LACTATED RINGERS 1,000 ML IV SCH ×2 (10:40→10:41)
[2019-11-15] MEDS ORDERED: MANNITOL 25% 12.5 GM/50 ML VIAL IV ONE (11:30)
[2019-11-15] MEDS ORDERED: NEOSTIGMINE 1 MG/ML 10 ML VIAL ONE (11:59)
[2019-11-15] MEDS ORDERED: MIDAZOLAM 2 MG/2 ML VIAL ONE (11:59)
[2019-11-15] MEDS ORDERED: PHENYLEPHRINE-0.9% NACL SYG 1 MG/10 ML SYRINGE ONE (11:59)
[2019-11-15] MEDS ORDERED: fentaNYL (PF) 50 MCG/ML 2 ML AMP ONE (11:59)
[2019-11-15] MEDS ORDERED: HYDROmorphone (PF) 1 MG/ML ONE (11:59)
[2019-11-15] MEDS ORDERED: MANNITOL 25% 12.5 GM/50 ML VIAL ONE (11:59)
[2019-11-15] MEDS ORDERED: LIDOCAINE 1% INJ 10MG/ML (20 ML MDV) ONE (11:59)
[2019-11-15] MEDS ORDERED: ALFENTANIL 500 MCG/ML 2 ML AMP IV ONE (11:59)
[2019-11-15] MEDS ORDERED: diphenhydrAMINE 50 MG/ML 1 ML VIAL ONE (11:59)
[2019-11-15] MEDS ORDERED: ROCURONIUM BROMIDE 10 MG/ML 5 ML VIAL IV ONE (11:59)
[2019-11-15] MEDS ORDERED: GLYCOPYRROLATE 0.2 MG/ML 2 ML VIAL ONE (11:59)
[2019-11-15] MEDS ORDERED: PROPOFOL 10 MG/ML 20 ML VIAL IV ONE (11:59)
[2019-11-15] MEDS ORDERED: MANNITOL 20% IV ONE (12:00)
[2019-11-15] MEDS ORDERED: BUPIVACAIN-EPI 0.25%-1:200,000 30 ML VIAL SQ ONE ×2 (13:01)
--- NOTE | 2019-11-15 14:33 | P.OP ---
Date of Procedure: 11/15/19 Preoperative Diagnosis: #1 right renal mass #2 chronic kidney disease #3 morbid obesity Postoperative Diagnosis: #1 right renal mass #2 chronic kidney disease #3 morbid obesity Procedure(s) Performed: #1 robotic right partial nephrectomy #2 intraoperative ultrasound examination of the kidney and renal mass #3 intraoperative interpretation of ultrasound examination of the kidney and renal mass Anesthesia: JOVON Surgeon: Nyla Garay Brand Inspector #1: Dayday Peterson Estimated Blood Loss (ml): 25 IV fluids (ml): 700 Urine output (ml): 100 Pathology: other (right renal mass) Condition: stable Disposition: PACU Indications for Procedure: 4.5 cm right lower pole renal mass suspicious for malignancy Operative Findings: Significant perinephric adiposity Multiple parasitic vessels Large lower pole heterogeneous renal mass Description of Procedure: Jovany elected to undergo a robotic right partial nephrectomy possible radical nephrectomy. All risks and complications were explained to him including bleeding and need for a radical nephrectomy, need for additional treatment, bowel or vascular and liver and adjacent organ injuries. A written informed consent was obtained. He was taken to the OR and administered general anesthesia and placed in right lateral position. Parts were prepped and draped. A Veress needle was used to gain access to the return him and a pneumoperitoneum was established at 20 mmHg. 4 robotic 8 mm ports were placed along the midclavicular line. Inspection of the abdomen revealed mild adhesions of the ascending colon. A 15 mm surgical assistant certified port and a 5 mm liver retraction port were also placed. A monopolar scissors, fenestrated bipolar and a Prograsp were used for the surgery. An incision was made along the line of Toldt and the cecum and the ascending colon was reflected off the Gerota's fascia. The hepatorenal ligament was incised. The duodenum was reflected medially to expose the inferior vena cava. The gonadal vein and ureter were identified. Using the Prograf the ureter was lifted up and a plane was developed to identify the psoas muscle. The Gerota's fascia was reflected off the psoas muscle. The renal hilum was identified and a single renal artery and single renal vein were dissected circumferentially. Attention was then directed to reflect the perinephric fat from the surface of the kidney. The renal mass is identified at the lower pole of the kidney and completely from the overlying fat. Adequate amount of normal renal parenchyma was dissected around the tumor to facilitate the Renorrhaphy sutures. The ultrasound probe was then used to image the mass and the margins of the tumor were carefully marked on the surface of the kidney to facilitate subsequent excision. 3 bulldog clamps were introduced into the abdomen, one curved and 2 straight. The artery was clamped with one curved and one straight bulldog clamp. The renal vein was clamped with one straight clamp. Prior to clamping 12.5 g of mannitol were administered IV. Using monopolar scissors and a fenestrated bipolar the renal mass was cut using cold cutting. Attention was paid to not cut into the tumor. Once the tumor was completely excised it was placed in the pelvis and a needle driver courier was used in the right hand. A 3-0 v loc suture was used to control the deep layer of the defect. The outer renorrhaphy was performed with 4 sutures of 2-0 V LOC. At the end of the renography the bulldog clamps were taken off the artery and the vein. The excised defect was observed for bleeding. Excellent hemostasis was observed. A 10-Kyrgyz drain was placed through the lowermost port. The defect was covered with the perinephric fat layer. The renal mass was then delivered out through the surgical assistant certified port and the port was closed with figure of 8 sutures using 0 Vicryl. The drain was stitched in place using 30 Ethilon and the skin was closed with 4-0 Monocryl. A full suture count and sponge count was performed and it was correct. The patient was woken up and taken to the cover in stable condition
[2019-11-15] MEDS ORDERED: HYDROmorphone 0.5 MG/0.5 ML SYRINGE IVP ONE ×3 (15:19→15:30)
[2019-11-15] MEDS ORDERED: ACETAMINOPHEN TAB 325 MG TAB PO PRN (15:44)
[2019-11-15] MEDS ORDERED: ONDANSETRON 4 MG/2 ML VIAL IVP PRN (15:44)
[2019-11-15] MEDS ORDERED: Acetaminophen-Codeine 300-30mg TAB PO PRN (15:44)
[2019-11-15] MEDS: HEPARIN SODIUM,PORCINE 5,000 UNIT/ML 1 ML VIAL SQ SCH (16:16)
[2019-11-15] MEDS: DEXTROSE 5%-0.45% NACL 1,000 ML IV SCH (16:17)
[2019-11-15 16:55] LABS: Glucose,Whole Blood 196 mg/dL (75-99)
[2019-11-15] MEDS: INSULIN ASPART (NovoLOG) 100 UNIT/ML VIAL SQ SCH (18:34)
[2019-11-15 18:59] LABS: HCT 40.1 % (39.0-53.0); HGB 13.5 gm/dL (13.0-17.5); MCHC 33.7 g/dL (31.0-37.0); MCV 88.9 fL (80.0-100.0); Mean Platelet Volume 6.9; Platelet Count 229 k/uL (150-450); RBC 4.51 m/uL (4.30-5.90); RDW 13.4 % (11.5-15.5); WBC 11.3 k/uL (3.8-10.6)
[2019-11-15 20:45] LABS: Glucose,Whole Blood 252 mg/dL (75-99)
[2019-11-15] MEDS: INSULIN DETEMIR (LEVEMIR) 100 UNIT/ML SYR SQ SCH (21:16)
[2019-11-15] MEDS ORDERED: HEPARIN SODIUM,PORCINE 5,000 UNIT/ML 1 ML VIAL ONE (23:35)
[2019-11-16] MEDS ORDERED: KETOROLAC 30 MG/ML 1 ML VIAL ONE (01:14)
[2019-11-16 04:21] LABS: Glucose,Whole Blood 244 mg/dL (75-99)
[2019-11-16] MEDS: HEPARIN SODIUM,PORCINE 5,000 UNIT/ML 1 ML VIAL SQ SCH ×4 (04:28→23:49)
[2019-11-16] MEDS: DEXTROSE 5%-0.45% NACL 1,000 ML IV SCH ×2 (04:28→08:28)
[2019-11-16 06:50] LABS: Glucose,Whole Blood 192 mg/dL (75-99)
[2019-11-16 07:02] LABS: HCT 38.8 % (39.0-53.0); HGB 12.8 gm/dL (13.0-17.5); MCHC 33.1 g/dL (31.0-37.0); MCV 90.7 fL (80.0-100.0); Mean Platelet Volume 6.5; Platelet Count 227 k/uL (150-450); RBC 4.27 m/uL (4.30-5.90); RDW 13.4 % (11.5-15.5); WBC 6.7 k/uL (3.8-10.6)
[2019-11-16 07:23] LABS: Albumin 3.2 g/dL (3.5-5.0); Calcium 8.7 mg/dL (8.4-10.2); Potassium 4.5 mmol/L (3.5-5.1); Total Bilirubin 0.5 mg/dL (0.2-1.3); Total Protein 5.9 g/dL (6.3-8.2)
[2019-11-16] MEDS ORDERED: SODIUM CHLORIDE 0.45% 1,000 ML with POTASSIUM CHLORIDE 20 MEQ IV SCH ×2 (08:00)
--- NOTE | 2019-11-16 08:08 | P.PN ---
Progress Note - Text Progress Note Date: 11/16/19 The patient is afebrile and normotensive. He says that he has pain if he tries to take a deep breath or move but has refused analgesics. He denies shortness of breath or chest pain. He is using the incentive spirometry and his O2 sat is acceptable. Urine output is adequate. He continues to have some drainage from the Keon-Oscar drain. Abdominal exam reveals moderate tenderness in the right abdomen. The incisions appear to be intact. The patient is doing as expected following his partial nephrectomy. He says he is not hungry and will continue on liquids. We will attempt to get him up at the side of the bed or in a chair and his Stern catheter will remain in place until tomorrow.
[2019-11-16] MEDS: INSULIN ASPART (NovoLOG) 100 UNIT/ML VIAL SQ SCH ×3 (08:29→17:28)
[2019-11-16] MEDS: LISINOPRIL 20 MG TAB PO SCH (08:30)
[2019-11-16] MEDS: ATENOLOL 25 MG TAB PO SCH (08:30)
[2019-11-16] MEDS: GABAPENTIN 300 MG CAP PO SCH (08:30)
[2019-11-16] MEDS: amLODIPine 10 MG TAB PO SCH (08:30)
[2019-11-16] MEDS: KETOROLAC 30 MG/ML 1 ML VIAL IVP PRN ×3 (08:37→21:29)
[2019-11-16] MEDS: 0.45% NACL WITH KCL 20 MEQ/L 1,000 ML IV SCH ×3 (10:03→23:48)
[2019-11-16 11:09] LABS: Glucose,Whole Blood 143 mg/dL (75-99)
[2019-11-16 17:16] LABS: Glucose,Whole Blood 116 mg/dL (75-99)
[2019-11-16 21:16] LABS: Glucose,Whole Blood 141 mg/dL (75-99)
[2019-11-16] MEDS: INSULIN DETEMIR (LEVEMIR) 100 UNIT/ML SYR SQ SCH (21:30)
[2019-11-16] MEDS: LACTATED RINGERS 1,000 ML IV SCH (22:44)
[2019-11-17 07:06] LABS: Glucose,Whole Blood 145 mg/dL (75-99)
--- NOTE | 2019-11-17 08:08 | P.PN ---
Subjective Progress Note Date: 11/17/19 second post op day from a robotic assisted right partial nephrectomy. The patients vss. He has some pain but will not take narcotics. His urine is clear. his abdomen is soft. I will d/c his carey I will decrease his ivf to 75 ml per hour He is on a regular diet. Objective - Vital Signs Vital signs: Vital Signs Temp 98.3 F 11/17/19 05:00 Pulse 77 11/17/19 05:00 Resp 20 11/17/19 05:00 BP 153/72 11/17/19 05:00 Pulse Ox 94 L 11/17/19 05:00 Intake & Output 11/16/19 11/17/19 11/17/19 18:59 06:59 18:59 Intake Total 1000 2060 Output Total 630 540 Balance 370 1520 Intake: Intake, IV Titration 1000 1700 Amount 0.45% NaCl with KCl 20 1000 1700 Meq/l 1,000 ml @ 125 mls/ hr IV .Q8H COUNT INCLUDES THE [facility] Rx#: [id number] Oral 360 Output: Drainage 130 90 Abdomen 130 90 Urine 500 450 Uretheral (Carey) 450 Other: Voiding Method Indwelling Catheter Indwelling Catheter - Labs CBC & Chem 7: 11/16/19 06:37 11/16/19 06:37 Labs: Abnormal Lab Results - Last 24 Hours (Table) 11/16/19 11/16/19 11/16/19 Range/Units 11:07 17:13 21:15 POC Glucose (mg/dL) 143 H 116 H 141 H (75-99) mg/dL 11/17/19 Range/Units 07:02 POC Glucose (mg/dL) 145 H (75-99) mg/dL
[2019-11-17] MEDS: INSULIN ASPART (NovoLOG) 100 UNIT/ML VIAL SQ SCH ×3 (08:23→17:57)
[2019-11-17] MEDS: LISINOPRIL 20 MG TAB PO SCH (09:38)
[2019-11-17] MEDS: amLODIPine 10 MG TAB PO SCH (09:38)
[2019-11-17] MEDS: GABAPENTIN 300 MG CAP PO SCH (09:38)
[2019-11-17] MEDS: ATENOLOL 25 MG TAB PO SCH (09:39)
[2019-11-17] MEDS: HEPARIN SODIUM,PORCINE 5,000 UNIT/ML 1 ML VIAL SQ SCH ×2 (09:39→17:57)
[2019-11-17] MEDS: 0.45% NACL WITH KCL 20 MEQ/L 1,000 ML IV SCH ×2 (09:50→19:06)
[2019-11-17] MEDS: KETOROLAC 30 MG/ML 1 ML VIAL IVP PRN (10:39)
[2019-11-17 11:50] LABS: Glucose,Whole Blood 132 mg/dL (75-99)
[2019-11-17 15:02] LABS: Calcium 8.8 mg/dL (8.4-10.2); Potassium 5.6 mmol/L (3.5-5.1)
[2019-11-17 17:05] LABS: Glucose,Whole Blood 181 mg/dL (75-99)
[2019-11-17 19:55] LABS: Glucose,Whole Blood 147 mg/dL (75-99)
[2019-11-17] MEDS: INSULIN DETEMIR (LEVEMIR) 100 UNIT/ML SYR SQ SCH (20:11)
[2019-11-18] MEDS: HEPARIN SODIUM,PORCINE 5,000 UNIT/ML 1 ML VIAL SQ SCH ×3 (00:33→15:37)
[2019-11-18] MEDS: 0.45% NACL WITH KCL 20 MEQ/L 1,000 ML IV SCH ×2 (05:38→17:02)
[2019-11-18 07:09] LABS: Glucose,Whole Blood 105 mg/dL (75-99)
[2019-11-18] MEDS: INSULIN ASPART (NovoLOG) 100 UNIT/ML VIAL SQ SCH ×2 (07:25→12:29)
[2019-11-18] MEDS: LISINOPRIL 20 MG TAB PO SCH (07:26)
[2019-11-18] MEDS: amLODIPine 10 MG TAB PO SCH (07:26)
[2019-11-18] MEDS: ATENOLOL 25 MG TAB PO SCH (07:26)
[2019-11-18] MEDS: GABAPENTIN 300 MG CAP PO SCH (07:27)
--- NOTE | 2019-11-18 09:09 | P.PN ---
Progress Note - Text Progress Note Date: 11/18/19 The patient is 3 days post robotically assisted laparoscopic partial left nephrectomy. He is afebrile and normotensive. He says he has some pain with movement but refuses to take analgesics. He is eating and drinking but says he is not very hungry. He says he is passing flatus. He has been up in the room to the bathroom but says he remains relatively weak. Keon-Oscar drainage was 60 mL overnight. His abdomen is soft and his incisions appear to be intact. BUN/creatinine were 25/1.41. Hemoglobin is 12.8. The patient says that he would like to go home today but I am concerned in regard to his general weakness. Told him that if he is able to ambulate without assistance within the room and is able to eat more than he may be able to be discharged later today.
[2019-11-18 11:38] LABS: Glucose,Whole Blood 95 mg/dL (75-99)
[2019-11-18 12:22] VITALS: BP 119/69; PULSE 76; RESP 17; TEMP 98.5
[2019-11-18 17:28] LABS: Glucose,Whole Blood 121 mg/dL (75-99)
--- NOTE | 2019-11-19 11:17 | P.DS ---
Providers Date of admission: 11/15/19 09:26 Expected date of discharge: 11/17/19 Attending physician: Nyla Garay Primary care physician: [facility] Course: The patient is a 69-year-old male who was recently discovered to have a right renal tumor. The patient underwent robotically assisted laparoscopic partial right nephrectomy performed by 11/15/2019. He had a moderate amount of pain postop but refused any analgesics. His catheter was removed on the second day postop. He continued to have some serosanguineous drainage from the Keon-Oscar drain and it was elected to leave this in place at the time of discharge. He was discharged on the third day postop which time he was tolerating a diet and ambulatory. He had no difficulty voiding. BUN/creatinine were 25/1.41. Procedures: Robotically assisted laparoscopic partial left nephrectomy 11/15/2019 Patient Condition at Discharge: Good Plan - Discharge Summary Discharge Rx Participant: Yes New Discharge Prescriptions: No Action Insulin Glargine [Lantus] 30 unit SQ HS Insulin Aspart [NovoLOG Flexpen] 10 units SQ TID-W/MEALS Gabapentin [Neurontin] 300 mg PO DAILY amLODIPine BESYLATE/BENAZEPRIL [amLODIPine BESYLATE/BENAZEPRIL 5-20 mg] 2 tab PO DAILY Atenolol [Tenormin] 25 mg PO DAILY Discharge Medication List Atenolol [Tenormin] 25 mg PO DAILY 10/20/19 [History] Gabapentin [Neurontin] 300 mg PO DAILY 10/20/19 [History] Insulin Aspart [NovoLOG Flexpen] 10 units SQ TID-W/MEALS 10/20/19 [History] Insulin Glargine [Lantus] 30 unit SQ HS 10/20/19 [History] amLODIPine BESYLATE/BENAZEPRIL [amLODIPine BESYLATE/BENAZEPRIL 5-20 mg] 2 tab PO DAILY 10/20/19 [History] Follow up Appointment(s)/Referral(s): Dayday Peterson MD [STAFF PHYSICIAN] - 3 Days (Follow up with Dr. Peterson on 11/20/2019, for removal of RAFAELA drain.) Patient Instructions/Handouts: Laparoscopic Partial Nephrectomy (DC) Discharge Disposition: HOME SELF-CARE Pending Studies Pending Results: Pathology report
--- NOTE | 2019-11-21 11:28 | CDI ---
Documentation Clarification Form Date: 11/21/19 From: Jyotsna Raya Phone: If you have a question about this query, please contact Florinda Mo, Veterinary Surgeon at [phone] between 8am and 5pm. Admit Date: 11/15/19 Discharge Date: 11/18/19 Patient Name: DEVONTE DALEY Visit Number: [id number] ATTENTION: The Clinical Documentation Specialists (CDI) and [facility] Coding Staff appreciate your assistance in clarifying documentation. Please respond to the clarification below the line at the bottom and electronically sign. The CDI & [facility] Coding staff will review the response and follow-up if needed. Please note: Queries are made part of the Legal Health Record. If you have any questions, please contact the author of this message via ITS. Dear Dr. Dayday Peterson, CKD is documented in the H&P. History/Risk Factors: Diabetic Type II, Right renal cancer Patients Historical BUN/CR/GFR: none available Clinical Indicators: Current BUN: , Current CR: 11/15-1.39, 11/16-1.41 Current GFR: , Treatment: Right partial nephrectomy In order to capture the severity of condition, please clarify the stage of the CKD, if known: CKD Stage 1 (GFR > 90) CKD Stage 2 (GFR 60-89) CKD Stage 3 (GFR 30-59) CKD Stage 4 (GFR 15-29) CKD Stage 5 (GFR <15) ESRD Other, please specify Unable to determine chronic renal failure stage 3 due to DM MTDD
== END 2019-11-18 17:34 | disposition home or self-care (01) | DRG 658 ==
LOC: 2ORMAIN 09:26 → 5NMEDONC 15:10
PROVIDERS: ADMIT Urology; ATTEND Urology
PROC: 0TB04ZZ Excision of Right Kidney, Percutaneous Endoscopic Approach (ICD-10-PCS; principal; 2019-11-15 10:30)
PROC: 8E0W4CZ Robotic Assisted Procedure of Trunk Region, Percutaneous Endoscopic Approach (ICD-10-PCS; principal; 2019-11-15 10:30)
DX: C64.1 Malignant neoplasm of right kidney, except renal pelvis (principal); E11.42 Type 2 diabetes mellitus with diabetic polyneuropathy; E11.22 Type 2 diabetes mellitus with diabetic chronic kidney disease; N18.3 Chronic kidney disease, stage 3 (moderate); Z79.4 Long term (current) use of insulin; E78.5 Hyperlipidemia, unspecified; E66.01 Morbid (severe) obesity due to excess calories; I12.9 Hypertensive chronic kidney disease with stage 1 through stage 4 chronic kidney disease, or unspecified chronic kidney disease; Z68.36 Body mass index [BMI] 36.0-36.9, adult; G47.30 Sleep apnea, unspecified; J45.909 Unspecified asthma, uncomplicated; K44.9 Diaphragmatic hernia without obstruction or gangrene; J61 Pneumoconiosis due to asbestos and other mineral fibers; K21.9 Gastro-esophageal reflux disease without esophagitis; L80 Vitiligo; K64.9 Unspecified hemorrhoids; Z79.899 Other long term (current) drug therapy; Z87.891 Personal history of nicotine dependence; Z89.412 Acquired absence of left great toe; Z86.14 Personal history of Methicillin resistant Staphylococcus aureus infection; Z89.422 Acquired absence of other left toe(s); Z86.718 Personal history of other venous thrombosis and embolism; Z86.2 Personal history of diseases of the blood and blood-forming organs and certain disorders involving the immune mechanism; Z87.01 Personal history of pneumonia (recurrent); Z86.59 Personal history of other mental and behavioral disorders; Z88.1 Allergy status to other antibiotic agents; Z88.5 Allergy status to narcotic agent; Z82.5 Family history of asthma and other chronic lower respiratory diseases; Z82.3 Family history of stroke; Z80.3 Family history of malignant neoplasm of breast; Z80.52 Family history of malignant neoplasm of bladder
CPT/HCPCS: 80048; 80053; 84132; 85027; 86850; 86900; 86901; 88305; 88307; 88341; 88342

== ENCOUNTER → 2020-06-25 | Outpatient (CLI) | payer MEDICARE ==
--- NOTE | 2020-06-25 12:14 | XR ---
EXAMINATION TYPE: XR chest 2V DATE OF EXAM: 06/25/2020 COMPARISON: Chest x-ray October 19, 2019. CT chest September 13, 2018. HISTORY: Renal cancer. TECHNIQUE: Frontal and lateral views of the chest are obtained. FINDINGS: Calcified pleural plaques bilaterally redemonstrated. There is chronic parenchymal changes bilaterally without suspicious new focal air space opacity, pleural effusion, or pneumothorax seen. The cardiac silhouette size remains enlarged. Exaggerated thoracic kyphosis redemonstrated. IMPRESSION: Chronic changes and cardiomegaly without new acute pulmonary process.
[2020-06-25 12:26] LABS: Albumin 4.5 g/dL (3.5-5.0); Calcium 9.4 mg/dL (8.4-10.2); Total Bilirubin 0.7 mg/dL (0.2-1.3)
[2020-06-25 12:29] LABS: HGB 16.1 gm/dL (13.0-17.5); MCH 29.9 pg (25.0-35.0); MCHC 33.4 g/dL (31.0-37.0); MCV 89.4 fL (80.0-100.0); Platelet Count 291 k/uL (150-450); RBC 5.37 m/uL (4.30-5.90); RDW 12.9 % (11.5-15.5); WBC 8.9 k/uL (3.8-10.6)
[2020-06-25 12:31] LABS: Potassium 5.5 mmol/L (3.5-5.1)
--- NOTE | 2020-06-25 13:52 | US ---
EXAMINATION TYPE: US kidneys/renal and bladder DATE OF EXAM: 06/25/2020 COMPARISON: 09/16/2019 CLINICAL HISTORY: C64.9 CA RENAL. Renal mass removed approximately 6 months prior. Patient initially scheduled for CT. His insurance wouldn't cover a CT, so ordered an ultrasound. EXAM MEASUREMENTS: Right Kidney: 10.7 x 4.5 x 4.7 cm Left Kidney: 10.6 x 4.8 x 4.9 cm Right Kidney: Exophytic superior pole simple cyst 2.7 x 2.4 x 2.5cm, inferior pole appears somewhat l obular in contour without distinct mass. Previous right lower pole mass not identified currently Left Kidney: No hydronephrosis or masses seen Bladder: not fully distended IMPRESSION: 1. Simple cyst superior pole right kidney. 2. No suspicious masses to suggest recurrent or metachronous renal cell carcinoma.
== END | disposition home or self-care (01) ==
LOC: RADCTMAIN 11:27
PROVIDERS: ATTEND Urology
DX: N28.1 Cyst of kidney, acquired (principal); I51.7 Cardiomegaly; R91.8 Other nonspecific abnormal finding of lung field; C64.9 Malignant neoplasm of unspecified kidney, except renal pelvis; D49.4 Neoplasm of unspecified behavior of bladder; Z88.3 Allergy status to other anti-infective agents
CPT/HCPCS: 71046; 76770; 80053; 85027

== ENCOUNTER 2020-10-29 11:01 | Inpatient (IN) | payer MEDICARE ==
[2020-10-29] MEDS ORDERED: ACETAMINOPHEN TAB 325 MG TAB PO STA (11:26)
[2020-10-29] MEDS ORDERED: SODIUM CHLORIDE 0.9% 500 ML 500 ML IV ONE (11:27)
[2020-10-29] MEDS ORDERED: ONDANSETRON 4 MG/2 ML VIAL IVP STA (11:28)
--- NOTE | 2020-10-29 11:32 | ED ---
SOB HPI - General Chief Complaint: Shortness of Breath Stated Complaint: vaccine reaction, SOB, weakness Time Seen by Provider: 10/29/20 11:21 Source: patient Mode of arrival: wheelchair Limitations: physical limitation - History of Present Illness Initial Comments: 70 year-old male old male patient presents to the emergency department for evaluation of shortness of breath, cough, and nausea. Patient started having symptoms 10/27. States his breathing has worsened. He did receive his second COVID vaccine on 10/25/20. States he has had harsh cough, denies sputum production or hemoptysis. Reports fever and chills, has not checked his temperature. States he has had nausea and diarrhea, no vomiting. Denies rash. Denies any chest pain. Patient denies any recent abdominal pain, constipation, back pain, numbness, tingling, dizziness, hematuria, dysuria, urinary urgency, urinary frequency, headache, visual changes, or any other complaints. - Related Data Home Medications Medication Instructions Recorded Confirmed Gabapentin [Neurontin] 300 mg PO DAILY 10/20/19 10/29/20 Insulin Aspart [NovoLOG Flexpen] 10 units SQ TID-W/MEALS 10/20/19 10/29/20 Insulin Glargine [Lantus] 30 unit SQ HS 10/20/19 10/29/20 amLODIPine BESYLATE/BENAZEPRIL 2 tab PO DAILY 10/20/19 10/29/20 [amLODIPine BESYLATE/BENAZEPRIL 5-20 mg] atenoloL [Tenormin] 25 mg PO DAILY 10/20/19 10/29/20 Sildenafil Citrate 100 mg PO DAILY PRN 10/29/20 10/29/20 Allergies Allergy/AdvReac Type Severity Reaction Status Date / Time fentanyl AdvReac Severe Nausea & Verified 10/29/20 11:54 Vomiting hydrocodone bitartrate AdvReac Nausea & Verified 10/29/20 11:54 [From [place]] Vomiting vancomycin AdvReac Unknown Verified 10/29/20 11:54 Review of Systems ROS Statement: Those systems with pertinent positive or pertinent negative responses have been documented in the HPI. ROS Other: All systems not noted in ROS Statement are negative. Past Medical History Past Medical History: Asthma, Chest Pain / Angina, CVA/TIA, Diabetes Mellitus, Deep Vein Thrombosis (DVT), GERD/Reflux, Hyperlipidemia, Hypertension, Pneumonia, Sleep Apnea/CPAP/BIPAP Additional Past Medical History / Comment(s): PAST HX INCLUDES: cardiac arrhythmia, hiatal hernia, hemorrhoids, Wound left foot,peripheral neuropathy, anemia, ,generalized vitiligo.ASBESTOSIS, TENDONS REMOVED FROM E 04/30/16 History of Any Multi-Drug Resistant Organisms: MRSA Date of last positivie culture/infection: 09/10/2015 MDRO Source:: Left Foot Past Surgical History: Adenoidectomy, Appendectomy, Orthopedic Surgery, Tonsillectomy Additional Past Surgical History / Comment(s): Amputation great toe and 3rd toe left foot, bilateral rotator cuff. TENDONS REMOVED FROM E 04/30/16 Past Anesthesia/Blood Transfusion Reactions: No Reported Reaction Past Psychological History: Anxiety, Depression Smoking Status: Former smoker Past Alcohol Use History: None Reported Past Drug Use History: None Reported - Past Family History Father Family Medical History: CVA/TIA Additional Family Medical History / Comment(s): several cva Mother Family Medical History: Asthma, COPD Sister(s) Family Medical History: Cancer Additional Family Medical History / Comment(s): Breast Cancer Brother(s) Family Medical History: Cancer Additional Family Medical History / Comment(s): Prostate and bladder Cancer General Exam Limitations: physical limitation General appearance: alert, in no apparent distress, other (Physical well- developed, well-nourished adult male patient in mild respiratory distress.) Eye exam: Present: normal appearance, PERRL, EOMI. Absent: scleral icterus, conjunctival injection, periorbital swelling ENT exam: Present: normal exam, normal oropharynx, mucous membranes moist Respiratory exam: Present: normal lung sounds bilaterally. Absent: respiratory distress, wheezes, rales, rhonchi, stridor Cardiovascular Exam: Present: normal rhythm, tachycardia, normal heart sounds. Absent: systolic murmur, diastolic murmur, rubs, gallop, clicks GI/Abdominal exam: Present: soft, normal bowel sounds. Absent: distended, tenderness, guarding, rebound, rigid Neurological exam: Present: alert, oriented X3, CN II-XII intact Psychiatric exam: Present: normal affect, normal mood Skin exam: Present: warm, dry, intact, normal color. Absent: rash Course Vital Signs 10/29/20 10/29/20 10/29/20 11:16 12:54 13:00 Temperature 99.9 F H 102.4 F H Pulse Rate 114 H 110 H Respiratory 22 22 22 Rate Blood Pressure 153/79 142/84 O2 Sat by Pulse 96 93 L Oximetry 10/29/20 14:00 Temperature 101.2 F H Pulse Rate 104 H Respiratory 18 Rate Blood Pressure 122/64 O2 Sat by Pulse 93 L Oximetry Medical Decision Making - Medical Decision Making 70-year-old male patient presents to the emergency department today for evalua tion of shortness of breath, cough, nausea. States he hasn't eaten or drank anything in 3 days. Physical examination reveals clear equal lung sounds. Patient is tachypneic. Labs reviewed and did reveal normal white blood cell count, low lymphocytes at 0.3, sodium 136, BUN 33, creatinine 1.64, lactic acid 1.0. LDH and CRP are elevated. He did test positive for COVID-19. He'll be admitted to the hospital with IV steroids, vitamins, IV fluids. We'll consult pulmonology. Case discussed with my attending Dr. Altman. - Lab Data Result diagrams: 10/29/20 12:34 10/29/20 12:34 Lab Results 10/29/20 10/29/20 10/29/20 Range/Units 12:34 12:34 12:34 WBC 5.7 (3.8-10.6) k/uL RBC 5.57 (4.30-5.90) m/uL Hgb 16.1 (13.0-17.5) gm/dL Hct 48.8 (39.0-53.0) % MCV 87.6 (80.0-100.0) fL MCH 28.9 (25.0-35.0) pg MCHC 33.0 (31.0-37.0) g/dL RDW 13.2 (11.5-15.5) % Plt Count 117 L (150-450) k/uL MPV 11.3 Neutrophils % 85 % Lymphocytes % 6 % Monocytes % 7 % Eosinophils % 1 % Basophils % 0 % Neutrophils # 4.9 (1.3-7.7) k/uL Lymphocytes # 0.3 L (1.0-4.8) k/uL Monocytes # 0.4 (0-1.0) k/uL Eosinophils # 0.0 (0-0.7) k/uL Basophils # 0.0 (0-0.2) k/uL PT 10.6 (9.0-12.0) sec INR 1.0 (<1.2) APTT 25.9 (22.0-30.0) sec D-Dimer 0.48 (<0.60) mg/L FEU Sodium 136 L (137-145) mmol/L Potassium 4.4 (3.5-5.1) mmol/L Chloride 103 (98-107) mmol/L Carbon Dioxide 19 L (22-30) mmol/L Anion Gap 14 mmol/L BUN 33 H (9-20) mg/dL Creatinine 1.64 H (0.66-1.25) mg/dL Est GFR (CKD-EPI)AfAm 48 (>60 ml/min/1.73 sqM) Est GFR (CKD-EPI)NonAf 42 (>60 ml/min/1.73 sqM) Glucose 136 H (74-99) mg/dL Plasma Lactic Acid Dave (0.7-2.0) mmol/L Calcium 8.9 (8.4-10.2) mg/dL Magnesium 1.7 (1.6-2.3) mg/dL Total Bilirubin 0.6 (0.2-1.3) mg/dL AST 34 (17-59) U/L ALT 16 (4-49) U/L Alkaline Phosphatase 67 (38-126) U/L Lactate Dehydrogenase 804 H (313-618) U/L C-Reactive Protein 8.7 H (<1.0) mg/dL Total Protein 6.9 (6.3-8.2) g/dL Albumin 3.9 (3.5-5.0) g/dL Coronavirus (PCR) (Not Detectd) 10/29/20 10/29/20 Range/Units 12:49 13:54 WBC (3.8-10.6) k/uL RBC (4.30-5.90) m/uL Hgb (13.0-17.5) gm/dL Hct (39.0-53.0) % MCV (80.0-100.0) fL MCH (25.0-35.0) pg MCHC (31.0-37.0) g/dL RDW (11.5-15.5) % Plt Count (150-450) k/uL MPV Neutrophils % % Lymphocytes % % Monocytes % % Eosinophils % % Basophils % % Neutrophils # (1.3-7.7) k/uL Lymphocytes # (1.0-4.8) k/uL Monocytes # (0-1.0) k/uL Eosinophils # (0-0.7) k/uL Basophils # (0-0.2) k/uL PT (9.0-12.0) sec INR (<1.2) APTT (22.0-30.0) sec D-Dimer (<0.60) mg/L FEU Sodium (137-145) mmol/L Potassium (3.5-5.1) mmol/L Chloride (98-107) mmol/L Carbon Dioxide (22-30) mmol/L Anion Gap mmol/L BUN (9-20) mg/dL Creatinine (0.66-1.25) mg/dL Est GFR (CKD-EPI)AfAm (>60 ml/min/1.73 sqM) Est GFR (CKD-EPI)NonAf (>60 ml/min/1.73 sqM) Glucose (74-99) mg/dL Plasma Lactic Acid Dave 1.0 (0.7-2.0) mmol/L Calcium (8.4-10.2) mg/dL Magnesium (1.6-2.3) mg/dL Total Bilirubin (0.2-1.3) mg/dL AST (17-59) U/L ALT (4-49) U/L Alkaline Phosphatase (38-126) U/L Lactate Dehydrogenase (313-618) U/L C-Reactive Protein (<1.0) mg/dL Total Protein (6.3-8.2) g/dL Albumin (3.5-5.0) g/dL Coronavirus (PCR) Detected A (Not Detectd) - EKG Data -: EKG Interpreted by Pa EKG Comments: EKG obtained at 1213 shows sinus tachycardia with a right bundle branch block. Ventricular rate is 1:15, ME interval 164, QRS duration 138, QT 344, QTC 475. No evidence of ST elevation or depression. - Radiology Data Radiology results: report reviewed, image reviewed Two-view x-ray of the chest is obtained. Report was reviewed in its entirety. Impression by Dr. Phelps shows cardiomegaly and chronic changes with suggestion of multifocal edema and/or infiltrates. Disposition Clinical Impression: COVID-19, Hypoxia Disposition: ADMITTED IP TO THIS [facility] Condition: Serious Decision to Admit Reason: Admit from EC Decision Date: 10/29/20 Decision Time: 15:59
--- NOTE | 2020-10-29 12:33 | XR ---
EXAMINATION TYPE: XR chest 1V portable DATE OF EXAM: 10/29/2020 COMPARISON: Chest x-ray June 25, 2020 HISTORY: Cough and fever. TECHNIQUE: Single frontal view of the chest is obtained. FINDINGS: There is chronic pleural and parenchymal changes and with multifocal faint increased opaci ties. The cardiac silhouette size remains enlarged with atherosclerotic aorta. The osseous structu res are intact. IMPRESSION: Cardiomegaly and chronic changes with suggestion of new multifocal edema and/or infiltra wilner. Correlate clinically.
[2020-10-29 13:00] LABS: Albumin 3.9 g/dL (3.5-5.0); C Reactive Protein 8.7 mg/dL (<1.0); Calcium 8.9 mg/dL (8.4-10.2); Magnesium 1.7 mg/dL (1.6-2.3); Potassium 4.4 mmol/L (3.5-5.1); Total Bilirubin 0.6 mg/dL (0.2-1.3); Total Protein 6.9 g/dL (6.3-8.2)
[2020-10-29 13:43] LABS: D-Dimer 0.48 mg/L FEU (<0.60); Partial Thromboplastin Time 25.9 sec (22.0-30.0); Prothrombin Time 10.6 sec (9.0-12.0)
[2020-10-29 14:06] LABS: Basophils % (A) 0 %; Eosinophils % (A) 1 %; HCT 48.8 % (39.0-53.0); HGB 16.1 gm/dL (13.0-17.5); Lymphocytes # (A) 0.3 k/uL (1.0-4.8); Lymphocytes % (A) 6 %; MCH 28.9 pg (25.0-35.0); MCV 87.6 fL (80.0-100.0); Mean Platelet Volume 11.3; Monocytes # (A) 0.4 k/uL (0-1.0); Monocytes % (A) 7 %; Neutrophils # (A) 4.9 k/uL (1.3-7.7); Neutrophils % (A) 85 %; Platelet Count 117 k/uL (150-450); RBC 5.57 m/uL (4.30-5.90); RDW 13.2 % (11.5-15.5); WBC 5.7 k/uL (3.8-10.6)
[2020-10-29] MEDS ORDERED: NALOXONE 0.4 MG/ML 1 ML VIAL IV PRN (15:52)
[2020-10-29] MEDS ORDERED: ONDANSETRON 4 MG/2 ML VIAL IVP PRN (15:52)
[2020-10-29] MEDS ORDERED: ACETAMINOPHEN TAB 325 MG TAB PO PRN (15:52)
[2020-10-29] MEDS ORDERED: DEXAMETHASONE SOD PHOSPHATE 10 MG/ML 1 ML VIAL IV STA (15:57)
[2020-10-29] MEDS ORDERED: ENOXAPARIN 30 MG/0.3 ML SYRINGE SQ STA (15:59)
[2020-10-29] MEDS: SODIUM CHLORIDE 0.9% 1,000 ML IV SCH (16:41)
[2020-10-29] MEDS ORDERED: ALPRAZolam 0.25 MG TAB PO PRN (17:58)
[2020-10-29] MEDS ORDERED: ALBUTEROL HFA INHALER INHALATION PRN (17:59)
--- NOTE | 2020-10-29 18:53 | HP ---
HISTORY AND PHYSICAL DATE OF SERVICE: 10/29/2020 CHIEF COMPLAINTS: Shortness of breath. HISTORY OF PRESENT ILLNESS: This 70-year-old gentleman with a past medical history of multiple medical problems, history of asthma, history of chest pain, CVA, TIA, diabetes, DVT, history of GERD, being followed by Dr. Dumont in the outpatient setting complaining of shortness of breath and cough and nausea for the last 2-3 days. The patient unable to eat or keep anything down. The patient apparently finished the second dose of Covid vaccine on 10/25/2020. There is no history of fever, rigors or chills. No history of headache, loss of consciousness, seizures. In the emergency room, the evaluation showed some thrombocytopenia with evidence of renal failure and as well as elevated inflammatory markers of Covid 19 and Covid-19 test was positive and patient admitted to the hospital for further evaluation and treatment. A chest x-ray done in the ER which I reviewed personally showed evidence of bilateral lesions also. There is possibly pneumonia also. There is no history of any rigors. No history of headache, loss of consciousness, seizures at this time. PAST MEDICAL HISTORY: History of asthma, history of CVA, TIA, diabetes type 2, DVT, GERD, hypertension, history of pneumonia, history of sleep apnea. MEDICATIONS: Medications prior to admission: Home medications are Tenormin, amlodipine, sildenafil, Lantus, FlexPen, Neurontin. Doses are reviewed. ALLERGIES: FENTANYL AND NORCO, VANCOMYCIN. FAMILY HISTORY: History of breast cancer in the family. SOCIAL HISTORY: No history of current smoking. Previous history of smoking. REVIEW OF SYSTEMS: ENT: No diminished hearing. No diminished vision. CARDIOVASCULAR as mentioned earlier. RESPIRATORY: As mentioned earlier. GI no nausea or vomiting. Otherwise mentioned earlier : No dysuria. NERVOUS SYSTEM: No numbness or weakness. ALLERGY/IMMUNOLOGY: As mentioned earlier. HEMATOLOGY/ONCOLOGY: As mentioned earlier. ENDOCRINE: As mentioned earlier. CONSTITUTIONAL: As mentioned earlier. DERMATOLOGY: Negative. RHEUMATOLOGY: Negative. PSYCHIATRY as mentioned earlier. PHYSICAL EXAM: Patient is alert, oriented x3. Pulse is 104. Blood pressure 124/64. Respiration 18. Temperature 101.2, pulse ox 93% on 2 L. HEENT: Conjunctivae normal. NECK: No JVD. CARDIOVASCULAR: S1, S2 muffled. RESPIRATION: Breath sounds diminished in the bases. A few scattered rhonchi. ABDOMEN: Soft, nontender. No mass palpable. LEGS no edema. No swelling. NERVOUS SYSTEM: Higher functions as mentioned. Moves all four limbs. No focal motor or sensory deficits. LYMPHATICS: No lymph nodes palpable in the neck, axillae or groin. SKIN: No ulcer, no rash and no bleeding. JOINTS: No active deforming arthropathy. LABS: At this time shows: Sodium 136 and creatinine is 1.64, glucose 136 and LDH is 804. CRP is 8.7. Covid 19 is positive. ASSESSMENT: 1. Acute COVID-19 infection with acute bilateral interstitial pneumonia with acute hypoxic respiratory failure. 2. Continued fever. 3. Tachycardia. 4. History of recent Covid vaccination. 5. History of asthma. 6. History of chest pain. 7. History of cerebrovascular accident, transient ischemic attack. 8. Diabetes type 2. 9. History of deep vein thrombosis. 10.Gastroesophageal reflux disease. 11.Hypertension. 12.Hyperlipidemia. 13.History of pneumonia. 14.History of sleep apnea. 15.History of cardiac arrhythmia. 16.Hiatal hernia. 17.History of asbestosis. 18.History of appendectomy. 19.History of anxiety, depression. 20.Obesity with body mass of 34.9. 21.History of nicotine dependence. 22.FULL CODE. RECOMMENDATIONS AND DISCUSSION: In this 70-year-old gentleman who presented with multiple complex medical issues, at this time, I recommend to continue current medications, management and symptomatic treatment. Otherwise, at this time, I recommend resume the usual medication for the COVID-19 and the patient may be a candidate for Remdesivir. I would also recommend pulmonary consultation. Otherwise, D-dimer is negative. I would order a CT chest without any contrast. Prognosis guarded because of multiple complex medical problems. Further recommendations to follow. See orders for details. A copy of dictation forwarded to Dr. Dumont who is the primary physician. MMMARLONL / IJN: [id number] /
--- NOTE | 2020-10-29 20:24 | CT ---
EXAMINATION TYPE: CT chest wo con DATE OF EXAM: 10/29/2020 COMPARISON: 09/23/2018 HISTORY: shortness of breath CT DLP: 575.[address] of the chest was performed with lung and mediastinal window settings submitted. The la ck of contrast limits evaluation of the vascular, mediastinal and parenchymal structures including th e upper abdomen. LUNGS: Scattered groundglass infiltrates compatible with Covid 19 pneumonia. Pleural-based pulmonary nodule right lower lobe measuring 11 mm is new from prior examination requires a three-month follow-u p. No atelectasis. No pulmonary nodule or mass is detected. No pleural effusion. No CT evidence of interstitial lung disease. MEDIASTINUM/ZEE: Thoracic aorta is of normal caliber with limited evaluation given lack of contrast . The heart is enlarged. No evidence for mediastinal mass. No lymph nodes greater than 1cm. UPPER ABDOMEN: Layering gallstones. Isodense right renal lesion is nonspecific. OTHER: No significant other abnormality. IMPRESSION: 1. Covid 19 pneumonia. 2. Right lower lobe pulmonary nodule. See above.
[2020-10-29] MEDS: ALBUTEROL HFA INHALER INHALATION SCH (20:59)
[2020-10-29 21:15] LABS: Glucose,Whole Blood 219 mg/dL (75-99)
[2020-10-29] MEDS: ASCORBIC ACID 500 MG TAB PO SCH (21:16)
[2020-10-29] MEDS: INSULIN DETEMIR (LEVEMIR) 100 UNIT/ML SYR SQ SCH (21:45)
[2020-10-29 23:51] LABS: Ferritin 233.9 ng/mL (22.0-322.0)
[2020-10-30 07:19] LABS: Glucose,Whole Blood 267 mg/dL (75-99)
[2020-10-30] MEDS: ALBUTEROL HFA INHALER INHALATION SCH ×3 (07:42→22:05)
[2020-10-30] MEDS: ENOXAPARIN 40 MG/0.4 ML SYRINGE SQ SCH (08:12)
[2020-10-30] MEDS: INSULIN ASPART (NovoLOG) 100 UNIT/ML VIAL SQ SCH ×3 (08:12→17:08)
[2020-10-30] MEDS: GABAPENTIN 300 MG CAP PO SCH (08:12)
[2020-10-30] MEDS: PANTOPRAZOLE 40 MG TABLET PO SCH (08:13)
[2020-10-30] MEDS: ZINC SULFATE 220 MG CAP PO SCH (08:13)
[2020-10-30] MEDS: atenoloL 25 MG TAB PO SCH (08:13)
[2020-10-30] MEDS: ASCORBIC ACID 500 MG TAB PO SCH ×2 (08:13→20:41)
[2020-10-30] MEDS: CHOLECALCIFEROL 25 MCG (1000 IU) TABLET PO SCH (08:13)
[2020-10-30] MEDS: DEXAMETHASONE SOD PHOSPHATE 10 MG/ML 1 ML VIAL IV SCH (08:13)
[2020-10-30 08:21] LABS: Basophils % (A) 0 %; Eosinophils % (A) 0 %; HCT 44.5 % (39.0-53.0); HGB 15.2 gm/dL (13.0-17.5); Lymphocytes # (A) 0.2 k/uL (1.0-4.8); Lymphocytes % (A) 4 %; MCH 29.4 pg (25.0-35.0); MCHC 34.2 g/dL (31.0-37.0); MCV 86.2 fL (80.0-100.0); Monocytes # (A) 0.3 k/uL (0-1.0); Monocytes % (A) 5 %; Neutrophils # (A) 5.1 k/uL (1.3-7.7); Neutrophils % (A) 90 %; Platelet Count 189 k/uL (150-450); RBC 5.17 m/uL (4.30-5.90); RDW 12.6 % (11.5-15.5); WBC 5.7 k/uL (3.8-10.6)
[2020-10-30] MEDS ORDERED: ENOXAPARIN 30 MG/0.3 ML SYRINGE SQ SCH (09:00)
[2020-10-30 11:38] LABS: African American GFR (CKD) 46.3 (60.0-200.0); Albumin 3.9 g/dL (3.80-4.90); Albumin/Globulin Ratio 2.05 (1.60-3.17); Anion Gap 13.5 mmol/L (4.00-12.00); BUN/Creat Ratio 23.53 Ratio (12.00-20.00); Calcium 8.5 mg/dL (8.7-10.3); Carbon Dioxide 17.5 mmol/L (21.6-31.8); Globulin 1.9 g/dL (1.6-3.3); Potassium 4.7 mmol/L (3.5-5.5); Total Bilirubin 0.6 mg/dL (0.3-1.2); Total Protein 5.8 g/dL (6.2-8.2)
[2020-10-30 11:56] LABS: Glucose,Whole Blood 251 mg/dL (75-99)
[2020-10-30] MEDS: SODIUM CHLORIDE 0.9% 1,000 ML IV SCH (12:18)
--- NOTE | 2020-10-30 12:28 | P.CNPUL ---
History of Present Illness Consult date: 10/30/20 Reason for consult: dyspnea, cough, hypoxemia, pneumonia Chief complaint: Shortness of breath for 3 day duration History of present illness: This is a 70-year-old male well-known to me history of asthma and mild per May fibrosis also has a history of hypertension hypertensive cardiovascular disease diabetes mellitus, patient came into the hospital with progressive shortness of breath cough and exposure to COVID-19 pneumonia he turned positive, he had a second vaccination done a few days ago before tanning positive for covid, Review of Systems All systems: negative Past Medical History Past Medical History: Asthma, Chest Pain / Angina, Diabetes Mellitus, Deep Vein Thrombosis (DVT), GERD/Reflux, Hypertension, Pneumonia, Sleep Apnea/CPAP/BIPAP Additional Past Medical History / Comment(s): PAST HX INCLUDES: cardiac arrhythmia, hiatal hernia, hemorrhoids, Wound left foot,peripheral neuropathy, anemia, ,generalized vitiligo.ASBESTOSIS, TENDONS REMOVED FROM [facility] 04/30/16, no cpap use History of Any Multi-Drug Resistant Organisms: MRSA Date of last positivie culture/infection: 09/10/2015 MDRO Source:: Left Foot Past Surgical History: Adenoidectomy, Appendectomy, Orthopedic Surgery, Tonsillectomy Additional Past Surgical History / Comment(s): Amputation great toe and 3rd toe left foot, bilateral rotator cuff. 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 He is and lives in the family home with the . No significant alcohol use. No recreational drug use. No international travel. No animal exposures. He has been the 's caregiver for some time. Smoking Status: Former smoker Past Alcohol Use History: None Reported Additional Past Alcohol Use History / Comment(s): smoker for 30 years 1 ppd quit 1998 Past Drug Use History: None Reported - Past Family History Father Family Medical History: CVA/TIA Additional Family Medical History / Comment(s): several cva Mother Family Medical History: Asthma, COPD Sister(s) Family Medical History: Cancer Additional Family Medical History / Comment(s): Breast Cancer Brother(s) Family Medical History: Cancer Additional Family Medical History / Comment(s): Prostate and bladder Cancer Medications and Allergies Home Medications Medication Instructions Recorded Confirmed Type Gabapentin [Neurontin] 300 mg PO DAILY 10/20/19 10/29/20 History Insulin Aspart [NovoLOG Flexpen] 10 units SQ TID-W/MEALS 10/20/19 10/29/20 History Insulin Glargine [Lantus] 30 unit SQ HS 10/20/19 10/29/20 History amLODIPine BESYLATE/BENAZEPRIL 2 tab PO DAILY 10/20/19 10/29/20 History [amLODIPine BESYLATE/BENAZEPRIL 5-20 mg] atenoloL [Tenormin] 25 mg PO DAILY 10/20/19 10/29/20 History Sildenafil Citrate 100 mg PO DAILY PRN 10/29/20 10/29/20 History Allergies Allergy/AdvReac Type Severity Reaction Status Date / Time fentanyl AdvReac Severe Nausea & Verified 10/29/20 11:54 Vomiting hydrocodone bitartrate AdvReac Nausea & Verified 10/29/20 11:54 [From [place]] Vomiting vancomycin AdvReac Unknown Verified 10/29/20 11:54 Physical Exam Vitals: Vital Signs Temp Pulse Pulse Resp BP BP Pulse Ox 10/30/20 08:00 98 F 98 20 147/74 90 L 10/30/20 02:00 98.1 F 79 20 144/97 92 L 10/29/20 19:30 98.5 F 67 18 134/77 93 L 10/29/20 18:37 98.3 F 97 16 134/78 93 L 10/29/20 14:00 101.2 F H 104 H 18 122/64 93 L 10/29/20 13:00 22 10/29/20 12:54 102.4 F H 110 H 22 142/84 93 L Intake and Output 10/29/20 10/30/20 10/30/20 22:59 06:59 14:59 Other: Voiding Method Toilet # Voids 2 Weight 113.398 kg - Constitutional General appearance: average body habitus, cooperative, disheveled - EENT Eyes: PERRLA ENT: hard of hearing Ears: bilateral: normal - Neck Carotids: bilateral: upstroke normal - Respiratory Respiratory: bilateral: CTA - Cardiovascular Heart sounds: normal: S1, S2 - Gastrointestinal General gastrointestinal: distended, soft - Integumentary Integumentary: decreased turgor - Neurologic Neurologic: CNII-XII intact - Musculoskeletal Musculoskeletal: gait normal, generalized weakness, strength equal bilaterally - Psychiatric Psychiatric: A&O x's 3, appropriate affect, intact judgment & insight Results - Laboratory Findings CBC and BMP: 10/30/20 07:27 10/30/20 07:27 PT/INR, D-dimer PT 10.6 sec (9.0-12.0) 10/29/20 12:34 INR 1.0 (<1.2) 10/29/20 12:34 D-Dimer 0.48 mg/L FEU (<0.60) 10/29/20 12:34 Abnormal lab findings: Abnormal Labs 10/29/20 10/29/20 10/29/20 12:34 12:34 13:54 Plt Count 117 L Lymphocytes # 0.3 L Sodium 136 L Carbon Dioxide 19 L Anion Gap BUN 33 H Creatinine 1.64 H Est GFR (CKD-EPI)AfAm Est GFR (CKD-EPI)NonAf BUN/Creatinine Ratio Glucose 136 H POC Glucose (mg/dL) Calcium Lactate Dehydrogenase 804 H C-Reactive Protein 8.7 H Total Protein Coronavirus (PCR) Detected A 10/29/20 10/30/20 10/30/20 21:13 07:17 07:27 Plt Count Lymphocytes # Sodium Carbon Dioxide 17.5 L Anion Gap 13.50 H BUN 40.0 H Creatinine 1.7 H Est GFR (CKD-EPI)AfAm 46.3 L Est GFR (CKD-EPI)NonAf 40.0 L BUN/Creatinine Ratio 23.53 H Glucose 309 H POC Glucose (mg/dL) 219 H 267 H Calcium 8.5 L Lactate Dehydrogenase C-Reactive Protein Total Protein 5.8 L Coronavirus (PCR) 10/30/20 10/30/20 07:27 11:53 Plt Count Lymphocytes # 0.2 L Sodium Carbon Dioxide Anion Gap BUN Creatinine Est GFR (CKD-EPI)AfAm Est GFR (CKD-EPI)NonAf BUN/Creatinine Ratio Glucose POC Glucose (mg/dL) 251 H Calcium Lactate Dehydrogenase C-Reactive Protein Total Protein Coronavirus (PCR) - Diagnostic Findings Chest x-ray: report reviewed, image reviewed CT scan - chest: report reviewed, image reviewed (Finding consistent with COVID- 19 pneumonia with right lower lobe pulmonary nodule of 11 mm size that it was not seen on CAT scan of 2019) Assessment and Plan Assessment: Acute COVID-19 pneumonia Acute hypoxic respiratory failure History of pulmonary fibrosis Pulmonary nodule 1.1 cm in size and right lower lobe new Hypertension hypertensive cardiovascular disease Type 2 diabetes mellitus Plan: Agree with supplemental oxygen Deep breathing exercises incentive spirometry Prone positioning IV in remdesivir for 5 days Decadron daily Supplements Computed tomography scan of the chest short-term as outpatient for pulmonary nodule Time with Patient: Greater than 30
[2020-10-30] MEDS ORDERED: REMDESIVIR 200 MG in SODIUM CHLORIDE 0.9% 250 ML IVPB ONE (13:00)
--- NOTE | 2020-10-30 14:54 | PN ---
PROGRESS NOTE DATE OF SERVICE: 10/30/2020 INTERVAL HISTORY: This 70-year-old gentleman who was admitted with shortness of breath, possible acute COVID-19 pneumonia as well as acute hypoxic respiratory failure. The patient started on remdesivir. Dr. Cervantes is following the patient from the pulmonary point of view. Inflammatory markers of COVID-19 are elevated. PAST MEDICAL HISTORY: Reviewed. REVIEW OF SYSTEMS: CARDIOVASCULAR: No angina. RESPIRATORY: As mentioned earlier. GI: As mentioned earlier. : No dysuria. NERVOUS SYSTEM: No numbness or weakness. CURRENT MEDICATIONS: Reviewed include Tylenol, Ventolin, Xanax, vitamin C, Tenormin, vitamin D3, remdesivir, Lovenox. Doses reviewed. PHYSICAL EXAM: GENERAL: Patient is alert and oriented times three. VITAL SIGNS: Pulse 73, blood pressure 134/73, respirations 20, temperature 97.8, pulse ox 97% on 2 liters. HEENT: Conjunctivae normal. Oral mucosa moist. NECK: No jugular venous distention. No carotid bruits. No lymph node enlargement. RESPIRATORY: Breath sounds diminished at the bases. A few scattered rhonchi and crackles. HEART: S1 and S2, muffled. ABDOMEN: Soft, no tenderness. No masses palpable. EXTREMITIES: No edema, no swelling. NERVOUS: No focal deficits. LABS: At this time show CBC within normal limits, otherwise 0.2. Other labs are noted. ASSESSMENT: 1. Acute COVID-19 infection with acute bilateral interstitial pneumonia with acute hypoxic respiratory failure. On remdesivir. 2. Continued fever. 3. Severe lymphopenia. 4. Tachycardia. 5. History of recent COVID vaccination. 6. History of asthma. 7. History of chest pain. 8. History of cerebrovascular accident, transient ischemic attack. 9. Diabetes mellitus type 2. 10.History of deep vein thrombosis. 11.Gastroesophageal reflux disease. 12.Hypertension. 13.Hyperlipidemia. 14.History of pneumonia. 15.History of sleep apnea. 16.History of cardiac arrhythmia. 17.Hiatal hernia. 18.History of asbestosis. 19.History of appendectomy. 20.History of anxiety, depression. 21.Obesity with body mass index of 34.9. 22.History of nicotine dependence. 23.FULL CODE. RECOMMENDATIONS AND DISCUSSION: Continue current medications, continue with monitoring, symptomatic treatment. As this time I recommend avoid nephrotoxic medications. Continue with IV fluids carefully. Continue with remdesivir. Monitor blood sugars closely. Continue with the dexamethasone. Closely follow with Pulmonary. Guarded prognosis because of multiple complex medical issues. Further recommendations to follow. PURVI / GEOVANNYN: [id number] / MTDConcetta
[2020-10-30 16:52] LABS: Glucose,Whole Blood 219 mg/dL (75-99)
[2020-10-30] MEDS: INSULIN DETEMIR (LEVEMIR) 100 UNIT/ML SYR SQ SCH (20:46)
[2020-10-30 20:57] LABS: Glucose,Whole Blood 270 mg/dL (75-99)
[2020-10-31 07:01] LABS: Glucose,Whole Blood 182 mg/dL (75-99)
[2020-10-31] MEDS: ENOXAPARIN 40 MG/0.4 ML SYRINGE SQ SCH (07:58)
[2020-10-31] MEDS: DEXAMETHASONE SOD PHOSPHATE 10 MG/ML 1 ML VIAL IV SCH (07:59)
[2020-10-31] MEDS: GABAPENTIN 300 MG CAP PO SCH (07:59)
[2020-10-31] MEDS: CHOLECALCIFEROL 25 MCG (1000 IU) TABLET PO SCH (07:59)
[2020-10-31] MEDS: ASCORBIC ACID 500 MG TAB PO SCH ×2 (07:59→20:59)
[2020-10-31] MEDS: ZINC SULFATE 220 MG CAP PO SCH (07:59)
[2020-10-31] MEDS: atenoloL 25 MG TAB PO SCH (07:59)
[2020-10-31] MEDS: PANTOPRAZOLE 40 MG TABLET PO SCH (07:59)
[2020-10-31] MEDS: INSULIN ASPART (NovoLOG) 100 UNIT/ML VIAL SQ SCH ×3 (07:59→16:42)
[2020-10-31] MEDS: ALBUTEROL HFA INHALER INHALATION SCH ×3 (08:14→20:26)
[2020-10-31 11:15] LABS: Glucose,Whole Blood 173 mg/dL (75-99)
[2020-10-31] MEDS: SODIUM CHLORIDE 0.9% 1,000 ML IV SCH (11:43)
[2020-10-31] MEDS: REMDESIVIR 100 MG in SODIUM CHLORIDE 0.9% 250 ML IVPB SCH (11:44)
--- NOTE | 2020-10-31 15:15 | PN ---
PROGRESS NOTE DATE OF SERVICE: 10/31/2020 This 70-year-old gentleman who was admitted with acute COVID-19 infection, had acute bilateral interstitial pneumonia and acute hypoxic respiratory failure. The patient is running fever. The patient has taken a turn for the worse. Patient started on remdesivir. Dr. Cervantes is following the patient. The patient is on other usual medications for COVID-19 also. Blood sugars elevated. PAST MEDICAL HISTORY: Reviewed. REVIEW OF SYSTEMS: CARDIOVASCULAR SYSTEM: No angina. RESPIRATORY SYSTEM: As mentioned earlier. GI: As mentioned earlier. : No dysuria. NERVOUS SYSTEM: No numbness, weakness. ALLERGY/IMMUNOLOGY: No asthma. MUSCULOSKELETAL: As mentioned earlier. CURRENT MEDICATIONS: Current medications are reviewed and include Tylenol, Ventolin, Xanax, vitamin C, Tenormin, vitamin D3, Decadron, Lovenox, Neurontin, NovoLog, Narcan, Zofran. PHYSICAL EXAMINATION: Patient is alert and oriented x3. Pulse 73, blood pressure 138/72, respirations 16, temperature 98.8, pulse ox 98% on 4 L. HEENT: Conjunctivae normal. NECK: No jugular venous distention. CARDIOVASCULAR: S1, S2 muffled. RESPIRATORY: Breath sounds diminished at the bases. A few scattered rhonchi and crackles. ABDOMEN: Soft, nontender. LEGS: No edema. No swelling. NERVOUS SYSTEM: No focal deficits. LABS: Lymphocytes are 0.2. Sodium 136, potassium 4.7 creatinine is 1.7. COVID-19 positive. ASSESSMENT: 1. Acute COVID-19 infection with acute bilateral interstitial pneumonia with acute hypoxic respiratory failure on remdesivir. 2. Continued fever. 3. Severe lymphopenia. 4. Acute renal failure with acute tubular necrosis. 5. Tachycardia. 6. History of recent COVID-19 vaccination. 7. History of asthma. 8. History of chest pain. 9. History of cerebrovascular accident, transient ischemic attack. 10.Diabetes mellitus type 2. 11.History of deep vein thrombosis. 12.History of gastroesophageal reflux disease. 13.Hypertension. 14.Hyperlipidemia. 15.History of pneumonia. 16.History of sleep apnea. 17.History of cardiac arrhythmia. 18.History of hiatal hernia. 19.History of asbestosis. 20.History of appendectomy. 21.History of anxiety, depression. 22.Obesity with body mass index of 34.9. 23.History of nicotine dependence. 24.FULL CODE. RECOMMENDATIONS AND DISCUSSION: Recommend to continue current medications, continue with symptomatic treatment. Otherwise, I would recommend repeat labs. Closely follow with Pulmonary. Ensure oxygenation. Otherwise, continue with Lovenox. Continue with zinc. Continue the rest of medications. Guarded prognosis because of multiple complex medical issues and further recommendations to follow. MMODL / IJN: [id number] /
[2020-10-31 15:51] LABS: Albumin 2.8 g/dL (3.5-5.0); Calcium 8.3 mg/dL (8.4-10.2); Potassium 5.1 mmol/L (3.5-5.1); Total Bilirubin 0.3 mg/dL (0.2-1.3); Total Protein 5.3 g/dL (6.3-8.2)
--- NOTE | 2020-10-31 15:51 | P.PN ---
Subjective Progress Note Date: 10/31/20 Principal diagnosis: Severe sepsis due to COVID-19 pneumonia Acute COVID-19 pneumonia Acute hypoxic respiratory failure History of pulmonary fibrosis Pulmonary nodule 1.1 cm in size and right lower lobe new Hypertension hypertensive cardiovascular disease Type 2 diabetes mellitus 10/31/2020, Patient seen eval examined during the rounds labs reviewed medications reviewed, earlier morning patient developed increasing shortness of breath is spiked a fever of 102, no fever is down feeling slightly better, oxygen have been escalated to 4 L nasal cannula, hemodynamic status stable, blood cultures no growth, patient is on usual therapy for a COVID-19 pneumonia including REM doesn't wear and IV steroids along with supplements, This is a 70-year-old male well-known to me history of asthma and mild per May fibrosis also has a history of hypertension hypertensive cardiovascular disease diabetes mellitus, patient came into the hospital with progressive shortness of breath cough and exposure to COVID-19 pneumonia he turned positive, he had a second vaccination done a few days ago before tanning positive for covid, Objective - Vital Signs Vital signs: Vital Signs Temp 98.8 F 10/31/20 12:00 Pulse 73 10/31/20 12:00 Resp 16 10/31/20 12:00 BP 138/72 10/31/20 13:02 Pulse Ox 98 10/31/20 12:00 Intake & Output 10/30/20 10/31/20 10/31/20 18:59 06:59 18:59 Intake Total 850 480 Output Total 600 Balance 850 -120 Intake: Intake, IV Titration 850 Amount Remdesivir 200 mg In 250 Sodium Chloride 0.9% 250 ml @ 250 mls/hr IVPB ONCE ONE Rx#:[id number] Sodium Chloride 0.9% 1, 600 000 ml @ 50 mls/hr IV . [facility]H [facility] Rx#:[id number] Oral 480 Output: Urine 600 Other: Voiding Method Toilet - Exam - Constitutional General appearance: average body habitus, cooperative,ill appearing and exhausted, disheveled - EENT Eyes: PERRLA ENT: hard of hearing Ears: bilateral: normal - Neck Carotids: bilateral: upstroke normal - Respiratory Respiratory: bilateral: CTA - Cardiovascular Heart sounds: normal: S1, S2 - Gastrointestinal General gastrointestinal: distended, soft - Integumentary Integumentary: decreased turgor - Neurologic Neurologic: CNII-XII intact - Musculoskeletal Musculoskeletal: gait normal, generalized weakness, strength equal bilaterally - Psychiatric Psychiatric: A&O x's 3, appropriate affect, intact judgment & insight - Labs CBC & Chem 7: 10/30/20 07:27 10/30/20 07:27 Labs: Abnormal Lab Results - Last 24 Hours (Table) 10/29/20 10/30/20 10/30/20 Range/Units 12:34 16:50 20:45 POC Glucose (mg/dL) 219 H 270 H (75-99) mg/dL Procalcitonin 0.11 H (0.02-0.09) ng/mL 10/31/20 10/31/20 Range/Units 06:58 11:14 POC Glucose (mg/dL) 182 H 173 H (75-99) mg/dL Procalcitonin (0.02-0.09) ng/mL Microbiology - Last 24 Hours (Table) 10/29/20 12:34 Blood Culture - Preliminary Blood No Growth after 48 hours 10/29/20 12:15 Blood Culture - Preliminary Blood No Growth after 48 hours Assessment and Plan Assessment: Acute COVID-19 pneumonia Sepsis due to COVID-19 pneumonia Acute hypoxic respiratory failure History of pulmonary fibrosis Pulmonary nodule 1.1 cm in size and right lower lobe new Hypertension hypertensive cardiovascular disease Type 2 diabetes mellitus Plan: Antipyretics Continue supplemental oxygen titrated to keep saturation 90-92% Deep breathing exercises incentive spirometry Prone positioning IV in remdesivir for 5 days Decadron daily Supplements Computed tomography scan of the chest short-term as outpatient for pulmonary nodule Time with Patient: Greater than 30
[2020-10-31 16:42] LABS: Glucose,Whole Blood 261 mg/dL (75-99)
[2020-10-31 20:45] LABS: Glucose,Whole Blood 274 mg/dL (75-99)
[2020-10-31] MEDS: INSULIN DETEMIR (LEVEMIR) 100 UNIT/ML SYR SQ SCH (20:59)
[2020-11-01] MEDS: SODIUM CHLORIDE 0.9% 1,000 ML IV SCH (05:52)
[2020-11-01 06:55] LABS: Glucose,Whole Blood 206 mg/dL (75-99)
[2020-11-01] MEDS: ASCORBIC ACID 500 MG TAB PO SCH ×2 (07:44→20:54)
[2020-11-01] MEDS: ENOXAPARIN 40 MG/0.4 ML SYRINGE SQ SCH (07:44)
[2020-11-01] MEDS: atenoloL 25 MG TAB PO SCH (07:44)
[2020-11-01] MEDS: ZINC SULFATE 220 MG CAP PO SCH (07:44)
[2020-11-01] MEDS: PANTOPRAZOLE 40 MG TABLET PO SCH (07:44)
[2020-11-01] MEDS: CHOLECALCIFEROL 25 MCG (1000 IU) TABLET PO SCH (07:44)
[2020-11-01] MEDS: GABAPENTIN 300 MG CAP PO SCH (07:44)
[2020-11-01] MEDS: DEXAMETHASONE SOD PHOSPHATE 10 MG/ML 1 ML VIAL IV SCH (07:45)
[2020-11-01] MEDS: INSULIN ASPART (NovoLOG) 100 UNIT/ML VIAL SQ SCH ×3 (07:45→16:53)
[2020-11-01] MEDS: ALBUTEROL HFA INHALER INHALATION SCH ×3 (08:22→19:01)
[2020-11-01 09:37] LABS: Basophils % (A) 0 %; Eosinophils % (A) 0 %; HCT 41.7 % (39.0-53.0); HGB 14.1 gm/dL (13.0-17.5); Lymphocytes # (A) 0.2 k/uL (1.0-4.8); Lymphocytes % (A) 3 %; MCH 29.4 pg (25.0-35.0); MCHC 33.8 g/dL (31.0-37.0); MCV 86.9 fL (80.0-100.0); Mean Platelet Volume 6.8; Monocytes # (A) 0.3 k/uL (0-1.0); Monocytes % (A) 4 %; Neutrophils # (A) 6.6 k/uL (1.3-7.7); Neutrophils % (A) 91 %; Platelet Count 198 k/uL (150-450); RDW 12.6 % (11.5-15.5); WBC 7.2 k/uL (3.8-10.6)
[2020-11-01 11:10] LABS: Glucose,Whole Blood 200 mg/dL (75-99)
--- NOTE | 2020-11-01 11:32 | P.PN ---
Subjective Progress Note Date: 11/01/20 Principal diagnosis: Severe sepsis due to COVID-19 pneumonia Acute COVID-19 pneumonia Acute hypoxic respiratory failure History of pulmonary fibrosis Pulmonary nodule 1.1 cm in size and right lower lobe new Hypertension hypertensive cardiovascular disease Type 2 diabetes mellitus 11/01/2020, patient seen eval examined during the rounds labs reviewed medications reviewed, patient remains short of breath, temperature curve however slightly better, no fever has been noted today, patient is on 4 L, denies any chest pain, does get short of breath on activity and exertion intermittent dry coughing is present as well, patient is getting therapy for COVID-19 pneumonia 10/31/2020, Patient seen eval examined during the rounds labs reviewed medications reviewed, earlier morning patient developed increasing shortness of breath is spiked a fever of 102, no fever is down feeling slightly better, oxygen have been escalated to 4 L nasal cannula, hemodynamic status stable, blo od cultures no growth, patient is on usual therapy for a COVID-19 pneumonia including REM doesn't wear and IV steroids along with supplements, This is a 70-year-old male well-known to me history of asthma and mild per May fibrosis also has a history of hypertension hypertensive cardiovascular disease diabetes mellitus, patient came into the hospital with progressive shortness of breath cough and exposure to COVID-19 pneumonia he turned positive, he had a second vaccination done a few days ago before tanning positive for covid, Objective - Vital Signs Vital signs: Vital Signs Temp 96.2 F L 11/01/20 08:00 Pulse 69 11/01/20 08:00 Resp 18 11/01/20 08:00 BP 137/65 11/01/20 08:00 Pulse Ox 90 L 11/01/20 08:00 Intake & Output 10/31/20 11/01/20 11/01/20 18:59 06:59 18:59 Intake Total 800 790 Balance 800 790 Intake: Intake, IV Titration 800 Amount Remdesivir 100 mg In 250 Sodium Chloride 0.9% 250 ml @ 250 mls/hr IVPB Q24H [facility] Rx#:[id number] Sodium Chloride 0.9% 1, 550 000 ml @ 50 mls/hr IV . Q20H [facility] Rx#:[id number] Oral 790 Other: Voiding Method Toilet Toilet Toilet # Voids 2 - Exam - Constitutional General appearance: average body habitus, cooperative,ill appearing and exhausted, disheveled - EENT Eyes: PERRLA ENT: hard of hearing Ears: bilateral: normal - Neck Carotids: bilateral: upstroke normal - Respiratory Respiratory: bilateral: Crackles more so on the right side compared to left side - Cardiovascular Heart sounds: normal: S1, S2 - Gastrointestinal General gastrointestinal: distended, soft - Integumentary Integumentary: decreased turgor - Neurologic Neurologic: CNII-XII intact - Musculoskeletal Musculoskeletal: gait normal, generalized weakness, strength equal bilaterally - Psychiatric Psychiatric: A&O x's 3, appropriate affect, intact judgment & insight - Labs CBC & Chem 7: 11/01/20 09:16 10/31/20 15:25 Labs: Abnormal Lab Results - Last 24 Hours (Table) 10/31/20 10/31/20 10/31/20 Range/Units 15:25 16:29 20:44 Lymphocytes # (1.0-4.8) k/uL Sodium 133 L (137-145) mmol/L Chloride 108 H (98-107) mmol/L Carbon Dioxide 17 L (22-30) mmol/L BUN 46 H (9-20) mg/dL Creatinine 1.68 H (0.66-1.25) mg/dL Glucose 298 H (74-99) mg/dL POC Glucose (mg/dL) 261 H 274 H (75-99) mg/dL Calcium 8.3 L (8.4-10.2) mg/dL Total Protein 5.3 L (6.3-8.2) g/dL Albumin 2.8 L (3.5-5.0) g/dL 11/01/20 11/01/20 11/01/20 Range/Units 06:53 09:16 11:02 Lymphocytes # 0.2 L (1.0-4.8) k/uL Sodium (137-145) mmol/L Chloride (98-107) mmol/L Carbon Dioxide (22-30) mmol/L BUN (9-20) mg/dL Creatinine (0.66-1.25) mg/dL Glucose (74-99) mg/dL POC Glucose (mg/dL) 206 H 200 H (75-99) mg/dL Calcium (8.4-10.2) mg/dL Total Protein (6.3-8.2) g/dL Albumin (3.5-5.0) g/dL Microbiology - Last 24 Hours (Table) 10/29/20 12:34 Blood Culture - Preliminary Blood No Growth after 48 hours 10/29/20 12:15 Blood Culture - Preliminary Blood No Growth after 48 hours Assessment and Plan Assessment: Acute COVID-19 pneumonia Sepsis due to COVID-19 pneumonia Acute hypoxic respiratory failure 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 Pulmonary nodule 1.1 cm in size and right lower lobe new Hypertension hypertensive cardiovascular disease Type 2 diabetes mellitus Plan: Antipyretics as needed Continue supplemental oxygen titrated to keep saturation 90-92% Deep breathing exercises incentive spirometry Prone positioning IV in remdesivir for 5 days Decadron daily Supplements Computed tomography scan of the chest short-term as outpatient for pulmonary nodule Time with Patient: Greater than 30
--- NOTE | 2020-11-01 11:57 | CDI ---
Documentation Clarification Form Date: 11/01/2020 11:46:01 AM From: Callie Raymond CCS, CCDS Admit Date: 10/29/2020 03:48:00 PM Patient Name: Jovany Ny Visit Number: [id number] Discharge Date: ATTENTION: The Clinical Documentation Specialists (CDI) and [facility] Coding Staff appreciate your assistance in clarifying documentation. Please respond to the clarification below the line at the bottom and electronically sign. The CDI & [facility] Coding staff will review the response and follow-up if needed. Please note: Queries are made part of the Legal Health Record. If you have any questions, please contact the author of this message via ITS. Dr. Sangita Toth: The patient presented with the following clinical indicators. Additional clarification regarding the etiology/cause of the clinical indicators is requested. History/Risk Factors per the 10/29 H/P History of present illness: Asthma, CVA, DM, GERD, Hypertension, Sleep apnea & Pneumonia. Per the 10/30 Pulmonary consult: Severe sepsis due to COVID 19 pneumonia. Clinical Indicators: Presented to the ED on 10/29 with SOB & weakness, cough, nausea, fever & chills, nausea & diarrhea. Per the 10/29 H/P, the patient completed his second dose of the COVID vaccine on 10/25/2020. 10/29 VS: T 99.9, P 114, R 22 (SOB), BP 153/79 - 120/64, PO 96 RA - 93 2Lnc 10/29 LAB: WBC 5.8, Neut 4.9, Lymph 0.3, Lactic Acid 1.0, LDH 804, CRP 8.7, Procalcitonin 0.11 10/29 COVID: Positive. 10/29 Blood cultures x2: preliminary: no growth after 48 hours. 10/29 RAD: CXR: Cardiomegaly & chronic changes with new edema and/or infiltrates. 10/29 CT Chest: COVID 19 pneumonia, Right lower lobe pulmonary nodule. Treatment 10/29: IV fluid 500 mls @ 999 mls/hr q31M x1, IV Zofran, IV Zofran 4 mg q8H, IV Decadron, Lovenox sq, INH Ventolin TID, Vit C. 10/30: Orazinc daily, IV Remdesivir In your professional opinion, please clarify if these findings signify one of the following conditions: [ ] Sepsis POA [ ] Sepsis, Not POA [ ] Sepsis ruled out [ ] Other, please specify [ ] Unable to determine (Template Last Reviewed: August 2020) Sepsis POA MTDD
[2020-11-01] MEDS: REMDESIVIR 100 MG in SODIUM CHLORIDE 0.9% 250 ML IVPB SCH (12:09)
[2020-11-01 14:52] LABS: Albumin 2.8 g/dL (3.5-5.0); Calcium 8.6 mg/dL (8.4-10.2); Potassium 4.9 mmol/L (3.5-5.1); Total Bilirubin 0.4 mg/dL (0.2-1.3); Total Protein 5.3 g/dL (6.3-8.2)
[2020-11-01 16:38] LABS: Glucose,Whole Blood 282 mg/dL (75-99)
--- NOTE | 2020-11-01 16:39 | PN ---
PROGRESS NOTE DATE OF SERVICE: 11/01/2020 This 70-year-old gentleman who was admitted with COVID-19 infection and bilateral pneumonia is being closely monitored. The patient had significant hypoxia. The patient had acute respiratory failure. Patient is short of breath. The patient is receiving remdesivir. Multiple consultants, including Dr. Cervantes, are following the patient closely. Past medical history reviewed. REVIEW OF SYSTEMS: CARDIOVASCULAR SYSTEM: No angina, palpitations. RESPIRATORY SYSTEM: As mentioned earlier. GI: As mentioned earlier. : No dysuria or retention. NERVOUS SYSTEM: No numbness, weakness. CURRENT MEDICATIONS: Reviewed. They include Tylenol, Ventolin, Xanax, Tenormin, vitamin D3, Decadron. Doses are reviewed. PHYSICAL EXAMINATION: Patient is alert, oriented x3. Pulse 77, blood pressure 161/77, respiration 18, temperature 97.3, pulse ox 85% on 4 L. HEENT: Conjunctivae normal. NECK: No jugular venous distention. CARDIOVASCULAR SYSTEM: S1, S2 muffled. RESPIRATORY SYSTEM: Breath sounds diminished at the bases. A few scattered rhonchi and crackles. ABDOMEN: Soft. NERVOUS SYSTEM: No focal deficit. LABS: Lymphocytes 0.2. Glucose noted. ASSESSMENT: 1. Acute COVID-19 infection with acute bilateral interstitial pneumonia with acute hypoxic respiratory failure, on remdesivir. 2. Continued fever, improved. 3. Severe lymphopenia. 4. Acute renal failure with acute tubular necrosis. 5. Change in mental status, acute metabolic encephalopathy. 6. Tachycardia. 7. History of recent COVID-19 vaccination. 8. History of asthma. 9. History of chest pain. 10.History of cerebrovascular accident, transient ischemic attack. 11.Diabetes mellitus, type 2. 12.History of deep vein thrombosis. 13.History of gastroesophageal reflux disease. 14.Hypertension. 15.Hyperlipidemia. 16.History of pneumonia. 17.History of sleep apnea. 18.History of cardiac arrhythmia. 19.History of hiatal hernia. 20.History of asbestosis. 21.History of appendectomy. 22.History of anxiety, depression. 23.Obesity with body mass index of 34.9. 24.History of nicotine dependence. 25.FULL CODE. RECOMMENDATIONS AND DISCUSSION: I recommend to continue current medications, continue with the monitoring, symptomatic treatment. Continue with the bronchodilators. Repeat labs. Closely follow with Pulmonary. Guarded prognosis because of multiple complex medical issues. Ensure oxygenation. The patient is slightly more hypoxic today. Further recommendations to follow. MMODL / IJN: [id number] /
[2020-11-01 20:41] LABS: Glucose,Whole Blood 326 mg/dL (75-99)
[2020-11-01] MEDS: INSULIN DETEMIR (LEVEMIR) 100 UNIT/ML SYR SQ SCH (20:54)
[2020-11-02] MEDS: SODIUM CHLORIDE 0.9% 1,000 ML IV SCH (00:29)
[2020-11-02 07:15] LABS: Glucose,Whole Blood 245 mg/dL (75-99)
[2020-11-02] MEDS: ALBUTEROL HFA INHALER INHALATION SCH ×3 (07:20→19:54)
[2020-11-02] MEDS: INSULIN ASPART (NovoLOG) 100 UNIT/ML VIAL SQ SCH ×3 (08:12→16:51)
[2020-11-02] MEDS: ASCORBIC ACID 500 MG TAB PO SCH ×2 (08:12→21:22)
[2020-11-02] MEDS: ENOXAPARIN 40 MG/0.4 ML SYRINGE SQ SCH (08:13)
[2020-11-02] MEDS: atenoloL 25 MG TAB PO SCH (08:13)
[2020-11-02] MEDS: PANTOPRAZOLE 40 MG TABLET PO SCH (08:13)
[2020-11-02] MEDS: DEXAMETHASONE SOD PHOSPHATE 10 MG/ML 1 ML VIAL IV SCH (08:13)
[2020-11-02] MEDS: ZINC SULFATE 220 MG CAP PO SCH (08:13)
[2020-11-02] MEDS: CHOLECALCIFEROL 25 MCG (1000 IU) TABLET PO SCH (08:13)
[2020-11-02] MEDS: GABAPENTIN 300 MG CAP PO SCH (08:13)
--- NOTE | 2020-11-02 08:32 | P.PN ---
Subjective Progress Note Date: 11/02/20 Principal diagnosis: Severe sepsis due to COVID-19 pneumonia Acute COVID-19 pneumonia Acute hypoxic respiratory failure History of pulmonary fibrosis Pulmonary nodule 1.1 cm in size and right lower lobe new Hypertension hypertensive cardiovascular disease Type 2 diabetes mellitus 11/02/2020, patient seen eval examined during the rounds labs reviewed medications reviewed care plan discussed Estrace status remains stable however patient requires slightly more oxygen now on 5 L nasal cannula, he still short of breath on activity and exertion dry nonproductive cough is present, remains on therapy for COVID-19 pneumonia with Chest x-ray tomorrow 11/01/2020, patient seen eval examined during the rounds labs reviewed medications reviewed, patient remains short of breath, temperature curve however slightly better, no fever has been noted today, patient is on 4 L, denies any chest pain, does get short of breath on activity and exertion intermittent dry coughing is present as well, patient is getting therapy for COVID-19 pneumonia 10/31/2020, Patient seen eval examined during the rounds labs reviewed medications reviewed, earlier morning patient developed increasing shortness of breath is spiked a fever of 102, no fever is down feeling slightly better, oxygen have been escalated to 4 L nasal cannula, hemodynamic status stable, blood cultures no growth, patient is on usual therapy for a COVID-19 pneumonia including REM doesn't wear and IV steroids along with supplements, This is a 70-year-old male well-known to [facility] history of asthma and mild per May fibrosis also has a history of hypertension hypertensive cardiovascular disease diabetes mellitus, patient came into the hospital with progressive shortness of breath cough and exposure to COVID-19 pneumonia he turned positive, he had a second vaccination done a few days ago before tanning positive for covid, Objective - Vital Signs Vital signs: Vital Signs Temp 98.0 F 11/02/20 07:00 Pulse 71 11/02/20 07:00 Resp 18 11/02/20 07:00 BP 152/71 11/02/20 07:00 Pulse Ox 91 L 11/02/20 07:20 Intake & Output 11/01/20 11/02/20 11/02/20 18:59 06:59 18:59 Intake Total 300 Balance 300 Intake: Intake, IV Titration 300 Amount Sodium Chloride 0.9% 1, 300 000 ml @ 20 mls/hr IV . Q24H [facility] Rx#:[id number] Other: Voiding Method Toilet # Voids 1 2 - Exam - Constitutional General appearance: average body habitus, cooperative,ill appearing and exhausted, disheveled - EENT Eyes: PERRLA ENT: hard of hearing Ears: bilateral: normal - Neck Carotids: bilateral: upstroke normal - Respiratory Respiratory: bilateral: Crackles more so on the right side compared to left side - Cardiovascular Heart sounds: normal: S1, S2 - Gastrointestinal General gastrointestinal: distended, soft - Integumentary Integumentary: decreased turgor - Neurologic Neurologic: CNII-XII intact - Musculoskeletal Musculoskeletal: gait normal, generalized weakness, strength equal bilaterally - Psychiatric Psychiatric: A&O x's 3, appropriate affect, intact judgment & insight - Labs CBC & Chem 7: 11/01/20 09:16 11/01/20 09:16 Labs: Abnormal Lab Results - Last 24 Hours (Table) 11/01/20 11/01/20 11/01/20 Range/Units 09:16 09:16 11:02 Lymphocytes # 0.2 L (1.0-4.8) k/uL Sodium 136 L (137-145) mmol/L Chloride 109 H (98-107) mmol/L Carbon Dioxide 21 L (22-30) mmol/L BUN 39 H (9-20) mg/dL Creatinine 1.36 H (0.66-1.25) mg/dL Glucose 266 H (74-99) mg/dL POC Glucose (mg/dL) 200 H (75-99) mg/dL Total Protein 5.3 L (6.3-8.2) g/dL Albumin 2.8 L (3.5-5.0) g/dL 11/01/20 11/01/20 11/02/20 Range/Units 16:30 20:30 07:14 Lymphocytes # (1.0-4.8) k/uL Sodium (137-145) mmol/L Chloride (98-107) mmol/L Carbon Dioxide (22-30) mmol/L BUN (9-20) mg/dL Creatinine (0.66-1.25) mg/dL Glucose (74-99) mg/dL POC Glucose (mg/dL) 282 H 326 H 245 H (75-99) mg/dL Total Protein (6.3-8.2) g/dL Albumin (3.5-5.0) g/dL Microbiology - Last 24 Hours (Table) 10/29/20 12:34 Blood Culture - Preliminary Blood No Growth after 72 hours 10/29/20 12:15 Blood Culture - Preliminary Blood No Growth after 72 hours Assessment and Plan Assessment: Acute COVID-19 pneumonia Sepsis due to COVID-19 pneumonia Acute hypoxic respiratory failure 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
[2020-11-02 09:55] LABS: Basophils % (A) 0 %; Eosinophils % (A) 0 %; HCT 43.7 % (39.0-53.0); HGB 14.8 gm/dL (13.0-17.5); Lymphocytes # (A) 0.2 k/uL (1.0-4.8); Lymphocytes % (A) 3 %; MCH 29.4 pg (25.0-35.0); MCHC 33.9 g/dL (31.0-37.0); MCV 86.6 fL (80.0-100.0); Mean Platelet Volume 6.9; Monocytes # (A) 0.5 k/uL (0-1.0); Monocytes % (A) 5 %; Neutrophils # (A) 8.6 k/uL (1.3-7.7); Neutrophils % (A) 90 %; Platelet Count 257 k/uL (150-450); RBC 5.04 m/uL (4.30-5.90); RDW 12.7 % (11.5-15.5); WBC 9.5 k/uL (3.8-10.6)
[2020-11-02 11:33] LABS: Glucose,Whole Blood 226 mg/dL (75-99)
[2020-11-02] MEDS: REMDESIVIR 100 MG in SODIUM CHLORIDE 0.9% 250 ML IVPB SCH (12:58)
[2020-11-02] MEDS: amLODIPine 10 MG TAB PO SCH (16:01)
[2020-11-02 16:34] LABS: Glucose,Whole Blood 335 mg/dL (75-99)
--- NOTE | 2020-11-02 17:19 | PN ---
PROGRESS NOTE DATE OF SERVICE: 11/02/2020 This 70-year-old gentleman admitted with acute COVID-19 pneumonia is being closely monitored. Patient is on Remdesivir, 3rd dose currently. The patient also has continued fever, chills which is improving. Patient has severe lymphopenia. Dr. Cervantes is following the patient closely from Pulmonary Critical Care. The chest CT was reviewed. There is no evidence of pulmonary embolism. Past medical history reviewed. REVIEW OF SYSTEM: CARDIOVASCULAR: S1, S2 muffled. RESPIRATION: Breath sounds diminished in the bases. GI as mentioned earlier. : No dysuria. NERVOUS SYSTEM: No numbness or weakness. MEDICATIONS: Reviewed and include: Tylenol, Ventolin, Xanax, vitamin C, Tenormin, vitamin D3. Doses reviewed. PHYSICAL EXAMINATION: The patient is alert and oriented times three. Pulse 66, blood pressure 167/99, respirations 22, temperature 97.7, pulse ox 91% on 6 L. HEENT: Conjunctivae normal. NECK: No JVD. CARDIOVASCULAR: S1, S2 muffled. RESPIRATORY SYSTEM: Breath sounds diminished at the bases. A few scattered rhonchi. ABDOMEN: Soft. Nontender. LEGS: No edema. No swelling. NERVOUS SYSTEM: No focal deficits. LABS: CBC within normal limits. Glucose 226. ASSESSMENT: 1. Acute COVID-19 infection with acute bilateral interstitial pneumonia with acute hypoxic respiratory failure on Remdesivir. 2. Continued fever, improved. 3. Severe lymphopenia. 4. Acute renal failure with acute tubular necrosis. 5. Change in mental status, acute metabolic encephalopathy. 6. Tachycardia. 7. History of recent Covid-19 vaccination. 8. History of asthma. 9. History of chest pain. 10.History of cerebrovascular accident, transient ischemic attack. 11.Diabetes type 2. 12.History of deep vein thrombosis. 13.Gastroesophageal reflux disease. 14.Hypertension. 15.Hyperlipidemia. 16.History of pneumonia. 17.History of sleep apnea. 18.History of cardiac arrhythmia. 19.History of hiatal hernia. 20.History of asbestosis. 21.History of appendectomy. 22.History of anxiety, depression. 23.Obesity with body mass index of 34.9. 24.History of nicotine dependence. 25.FULL CODE. RECOMMENDATIONS AND DISCUSSION: Continue current medications, management and symptomatic treatment with bronchodilators and Remdesivir. I would add Norvasc to the current regimen. Otherwise, the prognosis guarded. Further recommendations to follow. MMODL / IJN: [id number] /
[2020-11-02 20:21] LABS: Glucose,Whole Blood 394 mg/dL (75-99)
[2020-11-02] MEDS: INSULIN DETEMIR (LEVEMIR) 100 UNIT/ML SYR SQ SCH (21:22)
[2020-11-03] MEDS: SODIUM CHLORIDE 0.9% 1,000 ML IV SCH (02:12)
[2020-11-03 06:48] LABS: Glucose,Whole Blood 272 mg/dL (75-99)
[2020-11-03] MEDS: ZINC SULFATE 220 MG CAP PO SCH (07:21)
[2020-11-03] MEDS: ASCORBIC ACID 500 MG TAB PO SCH ×2 (07:21→21:53)
[2020-11-03] MEDS: DEXAMETHASONE SOD PHOSPHATE 10 MG/ML 1 ML VIAL IV SCH (07:21)
[2020-11-03] MEDS: CHOLECALCIFEROL 25 MCG (1000 IU) TABLET PO SCH (07:21)
[2020-11-03] MEDS: amLODIPine 10 MG TAB PO SCH (07:21)
[2020-11-03] MEDS: GABAPENTIN 300 MG CAP PO SCH (07:21)
[2020-11-03] MEDS: atenoloL 25 MG TAB PO SCH (07:21)
[2020-11-03] MEDS: INSULIN ASPART (NovoLOG) 100 UNIT/ML VIAL SQ SCH ×3 (07:22→17:32)
[2020-11-03] MEDS: ENOXAPARIN 40 MG/0.4 ML SYRINGE SQ SCH (07:22)
[2020-11-03] MEDS: PANTOPRAZOLE 40 MG TABLET PO SCH (07:22)
[2020-11-03] MEDS: ALBUTEROL HFA INHALER INHALATION SCH ×3 (07:23→20:51)
--- NOTE | 2020-11-03 07:42 | XR ---
EXAMINATION TYPE: XR chest 1V portable DATE OF EXAM: 11/03/2020 COMPARISON: Chest x-ray and CT 10/29/2020 HISTORY: Cough, Covid, shortness of breath TECHNIQUE: Single frontal view of the chest is obtained. FINDINGS: Patchy bilateral airspace disease is present. Patient is rotated. Cardiac mediastinal silh ouette shows a similar appearance accounting for technique. No evident pneumothorax or pleural effusi on. IMPRESSION: Findings consistent with pneumonia bilaterally. Heart is enlarged.
--- NOTE | 2020-11-03 09:40 | P.PN ---
Subjective Progress Note Date: 11/03/20 (critical care time 35 minutes) Principal diagnosis: Severe sepsis due to COVID-19 pneumonia Acute COVID-19 pneumonia Acute hypoxic respiratory failure History of pulmonary fibrosis Pulmonary nodule 1.1 cm in size and right lower lobe new Hypertension hypertensive cardiovascular disease Type 2 diabetes mellitus 11/03/2020, patient seen eval examined during the rounds labs reviewed medications reviewed care plan discussed, chest x-ray reviewed no significant change has been noted however patient is more short of breath and hypoxic, on 10 L now oxygen saturation is 90%, patient will benefit from a small dose of Lasix, will consult infectious disease as well and also evaluated for Actemra as patient appears to be slowly slipping into cytokines luna 11/02/2020, patient seen eval examined during the rounds labs reviewed medications reviewed care plan discussed Estrace status remains stable however patient requires slightly more oxygen now on 5 L nasal cannula, he still short of breath on activity and exertion dry nonproductive cough is present, remains on therapy for COVID-19 pneumonia with Chest x-ray tomorrow 11/01/2020, patient seen eval examined during the rounds labs reviewed medications reviewed, patient remains short of breath, temperature curve however slightly better, no fever has been noted today, patient is on 4 L, denies any chest pain, does get short of breath on activity and exertion intermittent dry coughing is present as well, patient is getting therapy for COVID-19 pneumonia 10/31/2020, Patient seen eval examined during the rounds labs reviewed medications reviewed, earlier morning patient developed increasing shortness of breath is spiked a fever of 102, no fever is down feeling slightly better, oxygen have been escalated to 4 L nasal cannula, hemodynamic status stable, blood cultures no growth, patient is on usual therapy for a COVID-19 pneumonia including REM doesn't wear and IV steroids along with supplements, This is a 70-year-old male well-known to me history of asthma and mild per May fibrosis also has a history of hypertension hypertensive cardiovascular disease diabetes mellitus, patient came into the hospital with progressive shortness of breath cough and exposure to COVID-19 pneumonia he turned positive, he had a second vaccination done a few days ago before tanning positive for covid, Objective - Vital Signs Vital signs: Vital Signs Temp 98.0 F 11/03/20 05:17 Pulse 63 04/25/21 05:17 Resp 18 11/03/20 05:17 BP 149/92 11/03/20 05:17 Pulse Ox 93 L 11/03/20 05:17 Intake & Output 11/02/20 11/03/20 11/03/20 18:59 06:59 18:59 Intake Total 380 Output Total 1000 Balance 380 -1000 Intake: Oral 380 Output: Urine 1000 Other: Voiding Method Toilet # Voids 2 - Exam - Constitutional General appearance: average body habitus, cooperative,ill appearing and exhausted, disheveled - EENT Eyes: PERRLA ENT: hard of hearing Ears: bilateral: normal - Neck Carotids: bilateral: upstroke normal - Respiratory Respiratory: bilateral: Crackles more so on the right side compared to left side - Cardiovascular Heart sounds: normal: S1, S2 - Gastrointestinal General gastrointestinal: distended, soft - Integumentary Integumentary: decreased turgor - Neurologic Neurologic: CNII-XII intact - Musculoskeletal Musculoskeletal: gait normal, generalized weakness, strength equal bilaterally - Psychiatric Psychiatric: A&O x's 3, appropriate affect, intact judgment & insight - Labs CBC & Chem 7: 11/02/20 09:19 11/01/20 09:16 Labs: Abnormal Lab Results - Last 24 Hours (Table) 11/02/20 11/02/20 11/02/20 Range/Units 09:19 11:31 16:34 Neutrophils # 8.6 H (1.3-7.7) k/uL Lymphocytes # 0.2 L (1.0-4.8) k/uL POC Glucose (mg/dL) 226 H 335 H (75-99) mg/dL 11/02/20 11/03/20 Range/Units 20:19 06:46 Neutrophils # (1.3-7.7) k/uL Lymphocytes # (1.0-4.8) k/uL POC Glucose (mg/dL) 394 H 272 H (75-99) mg/dL Microbiology - Last 24 Hours (Table) 10/29/20 12:15 Blood Culture - Preliminary Blood No Growth after 96 hours 10/29/20 12:34 Blood Culture - Preliminary Blood No Growth after 96 hours Assessment and Plan Assessment: Acute COVID-19 pneumonia severe Sepsis due to COVID-19 pneumonia Acute hypoxic respiratory failure 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
[2020-11-03 11:19] LABS: ALT 18 U/L (4-49); AST 23 U/L (17-59); African American GFR (CKD) 68 (>60 ml/min/1.73 sqM); Albumin 2.9 g/dL (3.5-5.0); Alkaline Phosphatase 63 U/L (38-126); Anion Gap 8 mmol/L; Blood Urea Nitrogen 40 mg/dL (9-20); Calcium 9.4 mg/dL (8.4-10.2); Carbon Dioxide 20 mmol/L (22-30); Chloride 108 mmol/L (98-107); Globulin 2.9 g/dL; Glucose 292 mg/dL (74-99); LDH 878 U/L (313-618); Non-African American GFR(CKD) 59 (>60 ml/min/1.73 sqM); Potassium 5.2 mmol/L (3.5-5.1); Sodium 136 mmol/L (137-145); Total Bilirubin 0.6 mg/dL (0.2-1.3); Total Protein 5.8 g/dL (6.3-8.2)
[2020-11-03 11:33] LABS: Basophils # (A) 0.1 k/uL (0-0.2); Basophils % (A) 1 %; Eosinophils % (A) 0 %; HCT 43.9 % (39.0-53.0); HGB 15.1 gm/dL (13.0-17.5); Lymphocytes # (A) 0.2 k/uL (1.0-4.8); Lymphocytes % (A) 2 %; MCH 30.1 pg (25.0-35.0); MCHC 34.5 g/dL (31.0-37.0); MCV 87.3 fL (80.0-100.0); Monocytes # (A) 0.9 k/uL (0-1.0); Monocytes % (A) 8 %; Neutrophils # (A) 9.6 k/uL (1.3-7.7); Neutrophils % (A) 87 %; Platelet Count 252 k/uL (150-450); RBC 5.02 m/uL (4.30-5.90); RDW 12.7 % (11.5-15.5)
[2020-11-03 11:52] LABS: Glucose,Whole Blood 246 mg/dL (75-99)
[2020-11-03 11:55] LABS: C Reactive Protein 3.6 mg/dL (<1.0)
[2020-11-03] MEDS: REMDESIVIR 100 MG in SODIUM CHLORIDE 0.9% 250 ML IVPB SCH (12:15)
[2020-11-03] MEDS ORDERED: TOCILIZUMAB 800 MG in SODIUM CHLORIDE 0.9% 60 ML IV ONE (16:30)
[2020-11-03 16:53] LABS: Glucose,Whole Blood 356 mg/dL (75-99)
[2020-11-03 17:13] LABS: Ferritin 227.7 ng/mL (22.0-322.0)
--- NOTE | 2020-11-03 19:16 | PN ---
PROGRESS NOTE DATE OF SERVICE: 11/03/2020 This 70-year-old gentleman who was admitted with acute COVID-19 infection with acute COVID-19 bilateral pneumonia also had acute hypoxic respiratory failure. The patient is being closely monitor this time. Dr. Dumont is following the patient closely. The patient is receiving Remdesivir day 4 today. The chest x-ray which was reviewed personally by me showed extensive bilateral pneumonia. Patient is being closely monitored. PAST MEDICAL HISTORY: Reviewed. REVIEW OF SYSTEMS: CARDIOVASCULAR: As mentioned earlier RESPIRATORY: As mentioned earlier. GI: As mentioned earlier. NERVOUS SYSTEM: No numbness or weakness. CURRENT MEDICATIONS: Include Tylenol, Ventolin, Xanax, Norvasc, vitamin C, Tenormin, Remdesivir. Doses reviewed. PHYSICAL EXAMINATION: Patient alert and oriented x3. Pulse 71, blood pressure 144/70, respiration 18, temperature 97.9, pulse ox 98% on 10 L high flow oxygen. HEENT: Conjunctivae normal. Oral mucosa moist. NECK: No jugular venous distention. No lymph node enlargement. CARDIOVASCULAR: S1, S2, muffled. No S3, no S4, RESPIRATORY: Diminished breath sounds at the bases. A few scattered rhonchi. ABDOMEN: Soft, nontender. LEGS: No edema, no swelling. NERVOUS SYSTEM: No focal deficits. LABS: WBC 11 and D-dimer 3.90. Sodium 130, potassium 5.2. ASSESSMENT: 1. Acute COVID-19 infection with acute bilateral interstitial pneumonia with acute hypoxic respiratory failure on Remdesivir. 2. Continued fever, improved. 3. Severe lymphopenia. 4. Acute renal failure with acute tubular necrosis. 5. Change in mental status, acute metabolic encephalopathy. 6. Tachycardia. 7. History of recent COVID-19 vaccination. 8. History of asthma. 9. History of chest pain. 10.History of cerebrovascular accident, transient ischemic attack. 11.Diabetes mellitus type 2. 12.History of deep vein thrombosis. 13.History of gastroesophageal reflux disease. 14.Hypertension. 15.Hyperlipidemia. 16.History of pneumonia. 17.History of sleep apnea. 18.History of cardiac arrhythmia. 19.History of hiatal hernia. 20.History of asbestosis. 21.History of appendectomy. 22.History of anxiety, depression. 23.Obesity with body mass index of 34.9. 24.History of nicotine dependence. 25.FULL CODE. RECOMMENDATIONS AND DISCUSSION: Continue current medication, continue to monitor, symptomatic treatment. Otherwise, at this time we will monitor the patient closely. Continue with bronchodilators. Continue with Remdesivir. Closely follow with Dr. Shi. Guarded prognosis. Further recommendations to follow. MMODL / IJN: [id number] /
[2020-11-03 20:30] LABS: Glucose,Whole Blood 371 mg/dL (75-99)
--- NOTE | 2020-11-03 20:48 | CONS ---
CONSULTATION DATE OF SERVICE: 11/03/2020 REASON FOR CONSULTATION: COVID-19 pneumonia. HISTORY OF PRESENT ILLNESS: The patient is a 70 -year-old male who presented to [facility] ER about 5 days ago on 10/29/2020 for evaluation of increasing shortness of breath, cough and nausea in this patient whose symptoms started 2 days before he presented to the hospital. The patient is complaining of worsening shortness of breath. He did have some cough. No significant sputum production, nausea, but no vomiting. No abdominal pain or diarrhea. Was complaining of fever and chills. With these symptoms, the patient was evaluated by the ER physician. On arrival to the ER, the patient did have a fever of 101.2 degrees Fahrenheit. The patient did have hypoxemia with O2 sats of 93% on room air. The patient was started on 2 L nasal cannula. The patient was started on Remdesivir. The patient has completed a 5-day course as of today. He is currently on dexamethasone, Lovenox, zinc and ascorbic acid. However, the patient was noticed to have worsening of his O2 sats and is currently on a 10 L high-flow oxygen. With concern for progressive worsening of his respiratory status, Infectious Disease was consulted for further management and consideration for possible Actemra. The patient denies any purulent sputum production and fever has resolved. The patient also has received 2 doses of his Covid vaccine. However, the second dose was only 2 days before his symptoms started. REVIEW OF SYSTEMS: Positive points have been mentioned in HPI. Rest of systems are negative. PAST MEDICAL HISTORY: Asthma, chest pain, CVA, TIA, diabetes mellitus, DVT, gastroesophageal reflux disease, hyperlipidemia, hypertension, pneumonia, sleep apnea. PAST SURGICAL HISTORY: Adenoidectomy, appendectomy, tonsillectomy, amputation of great toe and 3rd toe. SOCIAL HISTORY: Remote history of smoking. No drinking or drug use. FAMILY HISTORY: Father with history of CVA/TIA. Mother history of asthma and COPD, sister with history of breast cancer. ALLERGIES: TO FENTANYL, HYDROCODONE AND VANCOMYCIN. PHYSICAL EXAMINATION: Blood pressure 144/76, pulse 71. Temperature 97.9. He is 90% on 8 L high-flow oxygen. General description is an elderly male lying in bed in no distress. HEENT: Examination shows no pallor or scleral icterus. Oral mucous membranes dry. LUNGS: Unlabored breathing. Coarse breath sounds. No wheeze. Heart: S1, S2. Regular rate. ABDOMEN: Soft, no tenderness. No guarding. No rigidity. EXTREMITIES: No edema of the feet. SKIN examination: No rash or mass palpable. NEUROLOGIC: The patient is awake, alert, oriented. Mood and affect normal. LABS: Hemoglobin is 15.8, white count 11.0, BUN of 40, creatinine 1.24. Procalcitonin was 0.1 on admission. Did have a normal D-dimer on admission. DIAGNOSTIC IMPRESSION AND PLAN: Patient with acute respiratory failure secondary to Covid 19 pneumonia in this patient did not respond very well to the Remdesivir and did have progressive worsening of his respiratory status. Will need to rule out any complicating factors such as pulmonary embolism or progression of ARDS pattern versus . PLAN: 1. We will check a stat D-dimer. If elevated, consider CT angiogram of the chest. 2. The patient will be considered for dose of Actemra. This was discussed with pharmacy. 3. Continue with dexamethasone, Lovenox, zinc and ascorbic acid. 4. We will follow on his clinical condition and investigations to further adjust medication if needed. Thank you for this consultation. Will follow this patient along with you. MMODL / IJN: [id number] /
[2020-11-03] MEDS ORDERED: INSULIN DETEMIR (LEVEMIR) 100 UNIT/ML SYR SQ SCH (21:00)
[2020-11-03] MEDS: INSULIN DETEMIR (LEVEMIR) 100 UNIT/ML SYR SQ SCH (21:53)
[2020-11-04] MEDS: SODIUM CHLORIDE 0.9% 1,000 ML IV SCH (01:26)
[2020-11-04 06:50] LABS: Glucose,Whole Blood 202 mg/dL (75-99)
[2020-11-04] MEDS: ALBUTEROL HFA INHALER INHALATION SCH ×3 (07:35→20:01)
[2020-11-04] MEDS: DEXAMETHASONE SOD PHOSPHATE 10 MG/ML 1 ML VIAL IV SCH (08:22)
[2020-11-04] MEDS: ZINC SULFATE 220 MG CAP PO SCH (08:23)
[2020-11-04] MEDS: ASCORBIC ACID 500 MG TAB PO SCH ×2 (08:23→19:53)
[2020-11-04] MEDS: CHOLECALCIFEROL 25 MCG (1000 IU) TABLET PO SCH (08:23)
[2020-11-04] MEDS: INSULIN ASPART (NovoLOG) 100 UNIT/ML VIAL SQ SCH ×3 (08:23→17:41)
[2020-11-04] MEDS: ENOXAPARIN 40 MG/0.4 ML SYRINGE SQ SCH (08:24)
[2020-11-04] MEDS: atenoloL 25 MG TAB PO SCH (08:24)
[2020-11-04] MEDS: GABAPENTIN 300 MG CAP PO SCH (08:24)
[2020-11-04] MEDS: amLODIPine 10 MG TAB PO SCH (08:24)
[2020-11-04] MEDS: PANTOPRAZOLE 40 MG TABLET PO SCH (08:24)
--- NOTE | 2020-11-04 11:19 | P.PN ---
Subjective Progress Note Date: 11/04/20 Principal diagnosis: Severe sepsis due to COVID-19 pneumonia Acute COVID-19 pneumonia Acute hypoxic respiratory failure History of pulmonary fibrosis Pulmonary nodule 1.1 cm in size and right lower lobe new Hypertension hypertensive cardiovascular disease Type 2 diabetes mellitus 11/04/2020, patient seen eval examined during the rounds labs reviewed medications reviewed care plan discussed, still remained very hypoxic has been requiring 10 L high flow oxygen, short of breath on minimal activity and exertion, sats are 87% to 90%, patient remain on the standard therapy for COVID- 19 pneumonia, status post Actemra infusion, pro-calcitonin within normal limit, inflammatory parameters elevated with LDH of 878, C-reactive protein 3.6, d- dimer is 3.9 we will increase Lovenox to 3040 mg subcu every 12 computed tomography scan of the chest has been on hold due to elevated renal functions 11/03/2020, patient seen eval examined during the rounds labs reviewed medications reviewed care plan discussed, chest x-ray reviewed no significant change has been noted however patient is more short of breath and hypoxic, on 10 L now oxygen saturation is 90%, patient will benefit from a small dose of Lasix, will consult infectious disease as well and also evaluated for Actemra as patient appears to be slowly slipping into cytokines luna 11/02/2020, patient seen eval examined during the rounds labs reviewed medications reviewed care plan discussed Estrace status remains stable however patient requires slightly more oxygen now on 5 L nasal cannula, he still short of breath on activity and exertion dry nonproductive cough is present, remains on therapy for COVID-19 pneumonia with Chest x-ray tomorrow 11/01/2020, patient seen eval examined during the rounds labs reviewed medications reviewed, patient remains short of breath, temperature curve however slightly better, no fever has been noted today, patient is on 4 L, denies any chest pain, does get short of breath on activity and exertion intermittent dry coughing is present as well, patient is getting therapy for COVID-19 pneumonia 10/31/2020, Patient seen eval examined during the rounds labs reviewed medicatio ns reviewed, earlier morning patient developed increasing shortness of breath is spiked a fever of 102, no fever is down feeling slightly better, oxygen have been escalated to 4 L nasal cannula, hemodynamic status stable, blood cultures no growth, patient is on usual therapy for a COVID-19 pneumonia including REM doesn't wear and IV steroids along with supplements, This is a 70-year-old male well-known to me history of asthma and mild per May fibrosis also has a history of hypertension hypertensive cardiovascular disease diabetes mellitus, patient came into the hospital with progressive shortness of breath cough and exposure to COVID-19 pneumonia he turned positive, he had a second vaccination done a few days ago before tanning positive for covid, Objective - Vital Signs Vital signs: Vital Signs Temp 98.1 F 11/04/20 09:28 Pulse 70 11/04/20 09:28 Resp 18 11/04/20 09:28 BP 126/67 11/04/20 09:28 Pulse Ox 87 L 11/04/20 09:28 Intake & Output 11/03/20 11/04/20 11/04/20 18:59 06:59 18:59 Intake Total 1080 Output Total 950 1000 Balance 130 -1000 Intake: Oral 1080 Output: Urine 950 1000 Other: Voiding Method Toilet Bedside Commode # Voids 2 - Exam - Constitutional General appearance: average body habitus, cooperative,ill appearing and exhausted, disheveled - EENT Eyes: PERRLA ENT: hard of hearing Ears: bilateral: normal - Neck Carotids: bilateral: upstroke normal - Respiratory Respiratory: bilateral: Crackles more so on the right side compared to left side - Cardiovascular Heart sounds: normal: S1, S2 - Gastrointestinal General gastrointestinal: distended, soft - Integumentary Integumentary: decreased turgor - Neurologic Neurologic: CNII-XII intact - Musculoskeletal Musculoskeletal: gait normal, generalized weakness, strength equal bilaterally - Psychiatric Psychiatric: A&O x's 3, appropriate affect, intact judgment & insight - Labs CBC & Chem 7: 11/03/20 10:43 11/03/20 10:43 Labs: Abnormal Lab Results - Last 24 Hours (Table) 11/03/20 11/03/20 11/03/20 Range/Units 10:43 10:43 11:50 WBC 11.0 H (3.8-10.6) k/uL Neutrophils # 9.6 H (1.3-7.7) k/uL Lymphocytes # 0.2 L (1.0-4.8) k/uL D-Dimer (<0.60) mg/L FEU Sodium 136 L (137-145) mmol/L Potassium 5.2 H (3.5-5.1) mmol/L Chloride 108 H (98-107) mmol/L Carbon Dioxide 20 L (22-30) mmol/L BUN 40 H (9-20) mg/dL Glucose 292 H (74-99) mg/dL POC Glucose (mg/dL) 246 H (75-99) mg/dL Lactate Dehydrogenase 878 H (313-618) U/L C-Reactive Protein 3.6 H (<1.0) mg/dL Total Protein 5.8 L (6.3-8.2) g/dL Albumin 2.9 L (3.5-5.0) g/dL 11/03/20 11/03/20 11/03/20 Range/Units 16:09 16:51 20:29 WBC (3.8-10.6) k/uL Neutrophils # (1.3-7.7) k/uL Lymphocytes # (1.0-4.8) k/uL D-Dimer 3.90 H (<0.60) mg/L FEU Sodium (137-145) mmol/L Potassium (3.5-5.1) mmol/L Chloride (98-107) mmol/L Carbon Dioxide (22-30) mmol/L BUN (9-20) mg/dL Glucose (74-99) mg/dL POC Glucose (mg/dL) 356 H 371 H (75-99) mg/dL Lactate Dehydrogenase (313-618) U/L C-Reactive Protein (<1.0) mg/dL Total Protein (6.3-8.2) g/dL Albumin (3.5-5.0) g/dL 11/04/20 Range/Units 06:48 WBC (3.8-10.6) k/uL Neutrophils # (1.3-7.7) k/uL Lymphocytes # (1.0-4.8) k/uL D-Dimer (<0.60) mg/L FEU Sodium (137-145) mmol/L Potassium (3.5-5.1) mmol/L Chloride (98-107) mmol/L Carbon Dioxide (22-30) mmol/L BUN (9-20) mg/dL Glucose (74-99) mg/dL POC Glucose (mg/dL) 202 H (75-99) mg/dL Lactate Dehydrogenase (313-618) U/L C-Reactive Protein (<1.0) mg/dL Total Protein (6.3-8.2) g/dL Albumin (3.5-5.0) g/dL Microbiology - Last 24 Hours (Table) 10/29/20 12:15 Blood Culture - Preliminary Blood No Growth after 120 hours 10/29/20 12:34 Blood Culture - Preliminary Blood No Growth after 120 hours Assessment and Plan Assessment: Acute COVID-19 pneumonia severe Sepsis due to COVID-19 pneumonia Chronic kidney disease Acute hypoxic respiratory failure 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 Pulmonary nodule 1.1 cm in size and right lower lobe new Hypertension hypertensive cardiovascular disease Type 2 diabetes mellitus Plan: Will order chest x-ray for tomorrow Status post Actemra infusion Increase dose of Lovenox to 30 mg subcu every 12 Consult infectious disease noted and appreciated repeat labs including inflammatory parameters Antipyretics as needed Continue supplemental oxygen titrated to keep saturation 90-92% Deep breathing exercises incentive spirometry Prone positioning Status post IV remdesivir for 5 days Decadron daily Supplements Computed tomography scan of the chest short-term as outpatient for pulmonary nodule Time with Patient: Greater than 30
[2020-11-04 11:49] LABS: Glucose,Whole Blood 258 mg/dL (75-99)
[2020-11-04] MEDS ORDERED: SENNOSIDES 8.6 MG TAB PO PRN (12:36)
--- NOTE | 2020-11-04 13:17 | XR ---
EXAMINATION TYPE: XR chest 1V portable DATE OF EXAM: 11/04/2020 CLINICAL HISTORY: Difficulty breathing progress study. TECHNIQUE: Single AP portable upright view of the chest is obtained. COMPARISON: Chest x-ray from one day earlier and older studies. FINDINGS: There is chronic parenchymal changes and with persistent multifocal and confluent increase d opacities. The cardiac silhouette size remains enlarged with atherosclerotic aorta. Patient remai ns rotated to the right. The osseous structures are intact. IMPRESSION: Cardiomegaly and chronic changes with persistent multifocal and confluent opacities cons istent with covid-19 infection. No significant change from most recent x-ray.
--- NOTE | 2020-11-04 14:38 | PN ---
PROGRESS NOTE DATE OF SERVICE: 11/04/2020 REASON FOR FOLLOWUP: COVID-19 pneumonia. INTERVAL HISTORY: Patient is currently afebrile. Mentioned breathing about the same. No worsening. No evidence of improvement either. Still requiring 10 L high-flow oxygen about 91% setting. The patient denies having any chest pain or any worsening cough. No abdominal pain or diarrhea. PHYSICAL EXAMINATION: Blood pressure 126/57, pulse of 72, temperature 98.1. He is 91% on 2 L nasal cannula. General description is an elderly male up in the chair in no distress. Respiratory system: Unlabored breathing, decreased intensity of breath sounds. No wheeze. Heart S1, S2. Regular rate and rhythm. Abdomen soft, no tenderness. LABS: D. dimer came out to 3.90. Procalcitonin 0.08. DIAGNOSTIC IMPRESSION/PLAN: Patient with acute COVID-19 pneumonia. Patient seemed to have shown no significant improvement despite receiving Actemra. Unfortunately the patient did have elevated creatinine and not a good candidate for the CT angiogram of the chest. We will discuss with Pulmonary. If any clinical suspicion, may obtain a V/Q scan. For now, we will continue the patient on dexamethasone, Lovenox, zinc and ascorbic acid and monitor clinical course closely. MMODL / IJN: [id number] /
--- NOTE | 2020-11-04 15:30 | P.PN ---
Subjective Progress Note Date: 11/04/20 This is a 70-year-old male who was recently admitted with acute Covid 19 infection with acute COVID-19 bilateral pneumonia also acute hypoxic respiratory failure and is being closely monitored. Pulmonary Dr. Cervantes along with infectious disease following. Patient has completed Remdesivir and is maintained on Lovenox along with dexamethasone and vitamin and zinc supplements and will continue. Patient received a dose of Tocilizumab yesterday. Chest x-ray today shows cardiomegaly and chronic changes with persistent multifocal and confluent opacities consistent with COVID-19 infection with no significant change from previous. Initiating IV ceftriaxone. Patient continues on 10 L high flow with oxygen saturations to 87 and 91%. Patient states that his breathing and shortness of breath is about the same with no improvement and no worsening. Patient is tolerating diet with no reports of nausea or vomiting patient is getting up and walking as tolerated. Patient continues to be dyspneic with min imal exertion. Review of systems: Constitutional: No reports of fatigue, fever, or chills Cardiovascular: No reports of chest pain or palpitations Respiratory: Reports continued shortness of breath with minimal exertion GI: No reports of nausea, vomiting, or diarrhea : No reports of dysuria or retention Neurovascular: No reports of weakness or numbness All medications have been reviewed Active Medications Acetaminophen (Acetaminophen Tab 325 Mg Tab) 650 mg PO Q6HR PRN PRN Reason: Mild Pain or Fever > 100.5 Last Admin: 10/31/20 08:12 Dose: 650 mg Documented by: Albuterol Sulfate (Albuterol Hfa Inhaler) 2 puff INHALATION RT-TID [facility] Last Admin: 11/04/20 11:03 Dose: 2 puff Documented by: Albuterol Sulfate (Albuterol Hfa Inhaler) 2 puff INHALATION RT-TID PRN PRN Reason: Shortness Of Breath Or Wheezing Last Admin: 10/31/20 04:48 Dose: 2 puff Documented by: Alprazolam (Alprazolam 0.25 Mg Tab) 0.25 mg PO TID PRN PRN Reason: Anxiety Amlodipine Besylate (Amlodipine 10 Mg Tab) 10 mg PO DAILY [facility] Last Admin: 11/04/20 08:24 Dose: 10 mg Documented by: Ascorbic Acid (Ascorbic Acid 500 Mg Tab) 500 mg PO BID [facility] Last Admin: 11/04/20 08:23 Dose: 500 mg Documented by: Atenolol (Atenolol 25 Mg Tab) 25 mg PO DAILY [facility] Last Admin: 11/04/20 08:24 Dose: 25 mg Documented by: Cholecalciferol (Cholecalciferol 25 Mcg (1000 Iu) Tablet) 125 mcg PO DAILY [facility] Last Admin: 11/04/20 08:23 Dose: 125 mcg Documented by: Dexamethasone Sodium Phosphate (Dexamethasone Sod Phosphate 10 Mg/Ml 1 Ml Vial) 6 mg IV DAILY [facility] Last Admin: 11/04/20 08:22 Dose: 6 mg Documented by: Enoxaparin Sodium (Enoxaparin 30 Mg/0.3 Ml Syringe) 30 mg SQ Q12HR [facility] Gabapentin (Gabapentin 300 Mg Cap) 300 mg PO DAILY [facility] Last Admin: 11/04/20 08:24 Dose: 300 mg Documented by: Sodium Chloride (Saline 0.9%) 1,000 mls @ 20 mls/hr IV .Q24H [facility] Last Admin: 11/04/20 01:26 Dose: Not Given Documented by: Ceftriaxone Sodium 1 gm/ (Sodium Chloride) 50 mls @ 100 mls/hr IVPB Q24HR [facility] Last Admin: 11/04/20 13:20 Dose: 100 mls/hr Documented by: Insulin Aspart (Insulin Aspart (Novolog) 100 Unit/Ml Vial) 10 unit SQ TID- W/MEALS [facility] Last Admin: 11/04/20 13:19 Dose: 10 unit Documented by: Insulin Detemir (Insulin Detemir (Levemir) 100 Unit/Ml Syr) 40 unit SQ HS [facility] Last Admin: 11/03/20 21:53 Dose: 40 unit Documented by: Naloxone HCl (Naloxone 0.4 Mg/Ml 1 Ml Vial) 0.2 mg IV Q2M PRN PRN Reason: Opioid Reversal Ondansetron HCl (Ondansetron 4 Mg/2 Ml Vial) 4 mg IVP Q8HR PRN PRN Reason: Nausea And Vomiting Pantoprazole Sodium (Pantoprazole 40 Mg Tablet) 40 mg PO AC-BRKFST [facility] Last Admin: 11/04/20 08:24 Dose: 40 mg Documented by: Senna (Sennosides 8.6 Mg Tab) 8.6 mg PO BID PRN PRN Reason: Constipation Zinc Sulfate (Zinc Sulfate 220 Mg Cap) 220 mg PO DAILY [facility] Last Admin: 11/04/20 08:23 Dose: 220 mg Documented by: Objective - Vital Signs Vital signs: Vital Signs Temp 97.7 F 11/04/20 14:13 Pulse 64 11/04/20 14:13 Resp 18 11/04/20 14:13 BP 134/73 11/04/20 14:13 Pulse Ox 91 L 11/04/20 14:13 Intake & Output 11/03/20 11/04/20 11/04/20 18:59 06:59 18:59 Intake Total 1080 Output Total 950 1000 Balance 130 -1000 Intake: Oral 1080 Output: Urine 950 1000 Other: Voiding Method Toilet Bedside Commode # Voids 2 - Exam Gen: This is a 70-year-old male awake, alert and oriented 3, well-developed, well-nourished. Temp is 98.1F, pulse is 70, respirations are 18, blood pressure is 126/67, oxygen saturation is 87% on 10 L high flow HEENT: Head is atraumatic, normocephalic. Pupils equal, round. Sclerae is anicteric. NECK: Supple. No JVD. No lymphadenopathy. No thyromegaly. LUNGS: Diminished breath sounds bilaterally with a few scattered rhonchi noted. No intercostal retractions. HEART: S1, S2 are muffled ABDOMEN: Soft. Bowel sounds are present. No masses. No tenderness. EXTREMITIES: No pedal edema. No calf tenderness. NEUROLOGICAL: Patient is awake, alert and oriented x3. No focal deficits noted - Labs CBC & Chem 7: 11/03/20 10:43 11/03/20 10:43 Labs: Abnormal Lab Results - Last 24 Hours (Table) 11/03/20 11/03/20 11/03/20 Range/Units 16:09 16:51 20:29 D-Dimer 3.90 H (<0.60) mg/L FEU POC Glucose (mg/dL) 356 H 371 H (75-99) mg/dL 11/04/20 11/04/20 Range/Units 06:48 11:48 D-Dimer (<0.60) mg/L FEU POC Glucose (mg/dL) 202 H 258 H (75-99) mg/dL Microbiology - Last 24 Hours (Table) 10/29/20 12:34 Blood Culture - Final Blood No Growth after 144 hours 10/29/20 12:15 Blood Culture - Final Blood No Growth after 144 hours Assessment and Plan Assessment: Acute COVID-19 infection with acute bilateral interstitial pneumonia with acute hypoxic respiratory failure received Remdesivir and Jennifer Continued fever, improved Severe lymphopenia Acute renal failure with acute tubular necrosis Change in mental status acute metabolic encephalopathy Tachycardia History of recent COVID-19 vaccination History of asthma history of chest pain History of CVA, TIA Diabetes mellitus type 2 history of deep vein thrombosis history of gastroesophageal reflux disease Hypertension Hyperlipidemia History of pneumonia History of sleep apnea History of cardiac arrhythmia history of hiatal hernia History of asbestosis History of appendectomy History of anxiety, depression obesity with a body mass index of 34.9 history of nicotine dependence Full code Recommendations and discussion: Recommend to continue with current medications and treatment. Multiple medical consultations including infectious disease and pulmonary Dr. Helen thompson. Patient has completed Remdesivir and received a dose of Jennifer yesterday. A continues to be on 10 L high flow and discussed with nursing staff about weaning as tolerated. Patient continues on dexamethasone along with vitamin and zinc supplements and will continue. Patient also continues to be on Lovenox which was increased to 30 mg twice daily for elevated d-dimer. Will repeat a.m. labs along with inflammatory markers and continue to monitor closely. Due to Multiple complex medical issues, prognosis is guarded. Time with Patient: Greater than 30
[2020-11-04 16:45] LABS: Glucose,Whole Blood 361 mg/dL (75-99)
[2020-11-04] MEDS: ENOXAPARIN 30 MG/0.3 ML SYRINGE SQ SCH (19:53)
[2020-11-04 20:53] LABS: Glucose,Whole Blood 414 mg/dL (75-99)
[2020-11-04] MEDS: INSULIN DETEMIR (LEVEMIR) 100 UNIT/ML SYR SQ SCH (20:53)
--- NOTE | 2020-11-05 07:16 | XR ---
EXAMINATION TYPE: XR chest 1V portable DATE OF EXAM: 11/05/2020 HISTORY: covid 19 pneumonia COMPARISON: 11/04/2020 TECHNIQUE: Single view of the chest is submitted. FINDINGS: Demonstrated are scattered senescent parenchymal change. Stable patchy infiltrates throughout the perihilar and basilar regions without significant interval c hange. The heart is stable. Hilar and mediastinal structures are within normal limits. Degenerative changes are seen of the dorsal spine. IMPRESSION: 1. Stable patchy infiltrates throughout the perihilar and basilar regions without significant interv al change.
[2020-11-05] MEDS: ALBUTEROL HFA INHALER INHALATION SCH ×3 (07:33→20:28)
[2020-11-05 08:19] LABS: Glucose,Whole Blood 296 mg/dL (75-99)
[2020-11-05] MEDS: INSULIN ASPART (NovoLOG) 100 UNIT/ML VIAL SQ SCH ×3 (09:17→17:49)
[2020-11-05] MEDS: DEXAMETHASONE SOD PHOSPHATE 10 MG/ML 1 ML VIAL IV SCH (09:17)
[2020-11-05] MEDS: PANTOPRAZOLE 40 MG TABLET PO SCH (09:18)
[2020-11-05] MEDS: ENOXAPARIN 30 MG/0.3 ML SYRINGE SQ SCH ×2 (09:18→19:58)
[2020-11-05] MEDS: ZINC SULFATE 220 MG CAP PO SCH (09:18)
[2020-11-05] MEDS: GABAPENTIN 300 MG CAP PO SCH (09:18)
[2020-11-05] MEDS: ASCORBIC ACID 500 MG TAB PO SCH ×2 (09:18→19:58)
[2020-11-05] MEDS: amLODIPine 10 MG TAB PO SCH (09:18)
[2020-11-05] MEDS: CHOLECALCIFEROL 25 MCG (1000 IU) TABLET PO SCH (09:18)
[2020-11-05] MEDS: atenoloL 25 MG TAB PO SCH (09:18)
--- NOTE | 2020-11-05 10:36 | P.PN ---
Subjective Progress Note Date: 11/05/20 Principal diagnosis: Severe sepsis due to COVID-19 pneumonia Acute COVID-19 pneumonia Acute hypoxic respiratory failure History of pulmonary fibrosis Pulmonary nodule 1.1 cm in size and right lower lobe new Hypertension hypertensive cardiovascular disease Type 2 diabetes mellitus 11/05/2020, patient seen eval examined during the rounds labs reviewed medications reviewed care plan discussed, patient remains on 10 L oxygen saturations ranging from 88-90%, short of breath hypoxic denies any chest pain intermittent cough is present, noted that primary service has started Rocephin, chest x-ray earlier today continue show infiltrate bilaterally without any significant change 11/04/2020, patient seen eval examined during the rounds labs reviewed medications reviewed care plan discussed, still remained very hypoxic has been requiring 10 L high flow oxygen, short of breath on minimal activity and exertion, sats are 87% to 90%, patient remain on the standard therapy for COVID- 19 pneumonia, status post Actemra infusion, pro-calcitonin within normal limit, inflammatory parameters elevated with LDH of 878, C-reactive protein 3.6, d- dimer is 3.9 we will increase Lovenox to 3040 mg subcu every 12 computed tomography scan of the chest has been on hold due to elevated renal functions 11/03/2020, patient seen eval examined during the rounds labs reviewed medications reviewed care plan discussed, chest x-ray reviewed no significant change has been noted however patient is more short of breath and hypoxic, on 10 L now oxygen saturation is 90%, patient will benefit from a small dose of Lasix, will consult infectious disease as well and also evaluated for Actemra as patient appears to be slowly slipping into cytokines luna 11/02/2020, patient seen eval examined during the rounds labs reviewed medications reviewed care plan discussed Estrace status remains stable however patient requires slightly more oxygen now on 5 L nasal cannula, he still short of breath on activity and exertion dry nonproductive cough is present, remains on therapy for COVID-19 pneumonia with Chest x-ray tomorrow 11/01/2020, patient seen eval examined during the rounds labs reviewed medications reviewed, patient remains short of breath, temperature curve however slightly better, no fever has been noted today, patient is on 4 L, denies any chest pain, does get short of breath on activity and exertion intermittent dry coughing is present as well, patient is getting therapy for COVID-19 pneumonia 10/31/2020, Patient seen eval examined during the rounds labs reviewed medications reviewed, earlier morning patient developed increasing shortness of breath is spiked a fever of 102, no fever is down feeling slightly better, oxygen have been escalated to 4 L nasal cannula, hemodynamic status stable, blood cultures no growth, patient is on usual therapy for a COVID-19 pneumonia i ncluding REM doesn't wear and IV steroids along with supplements, This is a 70-year-old male well-known to me history of asthma and mild per May fibrosis also has a history of hypertension hypertensive cardiovascular disease diabetes mellitus, patient came into the hospital with progressive shortness of breath cough and exposure to COVID-19 pneumonia he turned positive, he had a second vaccination done a few days ago before tanning positive for covid, Objective - Vital Signs Vital signs: Vital Signs Temp 97.7 F 11/05/20 10:19 Pulse 75 11/05/20 10:19 Resp 16 11/05/20 10:19 BP 146/84 11/05/20 10:19 Pulse Ox 88 L 11/05/20 10:19 Intake & Output 11/04/20 11/05/20 11/05/20 18:59 06:59 18:59 Intake Total 236 Balance 236 Intake: Oral 236 Other: Voiding Method Bedside Commode # Voids 1 2 - Exam - Constitutional General appearance: average body habitus, cooperative,ill appearing and exhausted, disheveled - EENT Eyes: PERRLA ENT: hard of hearing Ears: bilateral: normal - Neck Carotids: bilateral: upstroke normal - Respiratory Respiratory: bilateral: Crackles more so on the right side compared to left side - Cardiovascular Heart sounds: normal: S1, S2 - Gastrointestinal General gastrointestinal: distended, soft - Integumentary Integumentary: decreased turgor - Neurologic Neurologic: CNII-XII intact - Musculoskeletal Musculoskeletal: gait normal, generalized weakness, strength equal bilaterally - Psychiatric Psychiatric: A&O x's 3, appropriate affect, intact judgment & insight - Labs CBC & Chem 7: 11/03/20 10:43 11/03/20 10:43 Labs: Abnormal Lab Results - Last 24 Hours (Table) 11/04/20 11/04/20 11/04/20 Range/Units 11:48 16:43 20:50 POC Glucose (mg/dL) 258 H 361 H 414 H (75-99) mg/dL 11/05/20 Range/Units 07:05 POC Glucose (mg/dL) 296 H (75-99) mg/dL Microbiology - Last 24 Hours (Table) 10/29/20 12:34 Blood Culture - Final Blood No Growth after 144 hours 10/29/20 12:15 Blood Culture - Final Blood No Growth after 144 hours Assessment and Plan Assessment: Acute COVID-19 pneumonia severe Sepsis due to COVID-19 pneumonia Chronic kidney disease Acute hypoxic respiratory failure 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 Pulmonary nodule 1.1 cm in size and right lower lobe new Hypertension hypertensive cardiovascular disease Type 2 diabetes mellitus Plan: Reviewed chest x-ray Status post Actemra and 5 day therapy of IV REMdesivir infusion Increase dose of Lovenox to 30 mg subcu every 12 Consult infectious disease noted and appreciated repeat labs including inflammatory parameters Antipyretics as needed Continue supplemental oxygen titrated to keep saturation 90-92% Deep breathing exercises incentive spirometry Prone positioning Decadron daily Supplements Computed tomography scan of the chest short-term as outpatient for pulmonary nodule Time with Patient: Greater than 30
[2020-11-05 11:21] LABS: Glucose,Whole Blood 330 mg/dL (75-99)
[2020-11-05 12:53] VITALS: BMI 34.8
--- NOTE | 2020-11-05 14:18 | CDI ---
Documentation Clarification Form Date: 11/05/2020 02:07:29 PM From: Callie Raymond CCS, CCDS Admit Date: 10/29/2020 03:48:00 PM Patient Name: Jovany Ny Visit Number: [id number] Discharge Date: ATTENTION: The Clinical Documentation Specialists (CDI) and [facility] Coding Staff appreciate your assistance in clarifying documentation. Please respond to the clarification below the line at the bottom and electronically sign. The CDI & [facility] Coding staff will review the response and follow-up if needed. Please note: Queries are made part of the Legal Health Record. If you have any questions, please contact the author of this message via ITS. Dr. Armen Cervantes: Unspecified CKD is documented in the Pulmonary Progress Notes on 11/04 & 11/05. Additional clarification regarding the stage of CKD is requested. History/Risk Factors per the 10/29 H/P: Asthma, CVA, TIA, DM II, DVT, Hypertension, GERD, Sleep Apnea & Pneumonia. Former smoker. Clinical Indicators: Presented to the ED on 10/29 with SOB, cough, nausea, fever, chills, diarrhea. weakness and vaccine reaction. Received second dose of COVID vaccine on 10/25. Tested positive for COVID 19 and admitted. Historical GFR: 05/02/2018: 61. 09/28/2018: 41. 10/06/2019: 48. 10/19/2019: 41. 06/25/2020: 38. Current Admission GFR: 10/29: 42, 10/30: 40, 10/31: 41, 11/01: 52, 11/03: 59. Current BUN/CR: 10/29: 33/1.64, 10/30: 40/1.7, 10/31: 46/1.68, 11/01: 39/1.36, 11/03: 40/1.24 . Treatment 10/29: IV fluid 500 mls @ 999 mls/hr q31M, IV Zofran 4mg x2, IV Decadron 6mg x1, Lovenox sq, INH Ventolin TID PRN, Vit C, Insulin sq, Vit D3. Nephrology is not consulted Please clarify the stage of the CKD, if known: [ x ] CKD Stage 3b (GFR 30-44) (Template Last revised: August 2020) MTDD
[2020-11-05 16:45] LABS: Glucose,Whole Blood 362 mg/dL (75-99)
--- NOTE | 2020-11-05 18:53 | PN ---
PROGRESS NOTE DATE OF SERVICE: 11/05/2020 REASON FOR FOLLOWUP: COVID-19 infection. INTERVAL HISTORY: Patient is currently afebrile. The patient mentioned he is feeling slightly better today. He is breathing slightly comfortably. Denies having any chest pain. Cough but no sputum production. No abdominal pain or diarrhea. PHYSICAL EXAMINATION: Blood pressure 132/76, pulse of 58, temperature is 97.5, he is 94% on 10 liters high- flow oxygen. GENERAL DESCRIPTION: An elderly male up in the chair in no distress. RESPIRATORY SYSTEM: Unlabored breathing, decreased intensity of breath sounds, no wheeze. HEART: S1, S2. Regular rate and rhythm. ABDOMEN: Soft, no tenderness. LABS: No new labs have been obtained today. IMPRESSION/PLAN: Patient with acute COVID-19 infection. The patient has completed his remdesivir therapy and also received Actemra. Currently on dexamethasone, zinc, Lovenox and ascorbic acid, to continue while monitoring his clinical course closely. Continue supportive care. MMODL / IJN: [id number] /
[2020-11-05 20:52] LABS: Glucose,Whole Blood 240 mg/dL (75-99)
[2020-11-05] MEDS: INSULIN DETEMIR (LEVEMIR) 100 UNIT/ML SYR SQ SCH (20:58)
[2020-11-06 07:07] LABS: Glucose,Whole Blood 120 mg/dL (75-99)
[2020-11-06] MEDS: ALBUTEROL HFA INHALER INHALATION SCH ×3 (07:47→20:31)
[2020-11-06] MEDS: ENOXAPARIN 30 MG/0.3 ML SYRINGE SQ SCH ×2 (07:57→20:13)
[2020-11-06] MEDS: PANTOPRAZOLE 40 MG TABLET PO SCH (07:57)
[2020-11-06] MEDS: DEXAMETHASONE SOD PHOSPHATE 10 MG/ML 1 ML VIAL IV SCH ×2 (07:57→08:03)
[2020-11-06] MEDS: ZINC SULFATE 220 MG CAP PO SCH (07:57)
[2020-11-06] MEDS: amLODIPine 10 MG TAB PO SCH (07:57)
[2020-11-06] MEDS: atenoloL 25 MG TAB PO SCH (07:57)
[2020-11-06] MEDS: CHOLECALCIFEROL 25 MCG (1000 IU) TABLET PO SCH (07:57)
[2020-11-06] MEDS: ASCORBIC ACID 500 MG TAB PO SCH ×2 (07:57→20:13)
[2020-11-06] MEDS: GABAPENTIN 300 MG CAP PO SCH (07:57)
[2020-11-06] MEDS: INSULIN ASPART (NovoLOG) 100 UNIT/ML VIAL SQ SCH ×3 (07:58→17:29)
--- NOTE | 2020-11-06 09:16 | P.PN ---
Subjective Progress Note Date: 11/05/20 70-year-old male who was recently admitted with acute Covid 19 infection with acute COVID-19 bilateral pneumonia also acute hypoxic respiratory failure and is being closely monitored. Pulmonary Dr. Cervantes along with infectious disease following. Patient has completed Remdesivir and is maintained on Lovenox along with dexamethasone and vitamin and zinc supplements and will continue. Patient received a dose of Tocilizumab yesterday. Chest x-ray today shows cardiomegaly and chronic changes with persistent multifocal and confluent opacities consistent with COVID-19 infection with no significant change from previous. Initiating IV ceftriaxone. Patient continues on 10 L high flow with oxygen saturations to 87 and 91%. Patient states that his breathing and shortness of breath is about the same with no improvement and no worsening. Patient is tolerating diet with no reports of nausea or vomiting patient is getting up and walking as tolerated. Patient continues to be dyspneic with minimal exertion. 11/05/2020 Patient remains on 8 L of oxygen his respiratory condition is not better. And patient remains on antibiotics for seconded rectal pneumonia as well and patient remains on Decadron completed Remdesivir and actemra therapy. Constitutional: Denied any fatigue denied any fever. Cardio vascular: denied any chest pain, palpitations Gastrointestinal denied any nausea vomiting Pulmonary: Still remains on 8 L of oxygen Neurologic denied any new focal deficits All inpatient medications were reviewed and appropriate changes in these medications as dictated in the interval history and assessment and plan. Objective - Vital Signs Vital signs: Vital Signs Temp 98.3 F 11/06/20 05:10 Pulse 68 11/06/20 05:10 Resp 18 11/06/20 05:10 BP 149/78 11/06/20 05:10 Pulse Ox 93 L 11/06/20 05:10 Intake & Output 11/05/20 11/06/20 11/06/20 18:59 06:59 18:59 Intake Total 472 Balance 472 Weight 113.398 kg Intake: Oral 472 Other: Voiding Method Toilet # Voids 6 2 - Exam Gen: This is a 70-year-old male awake, alert and oriented 3, well-developed, well-nourished. Temp is 98.1F, pulse is 70, respirations are 18, blood press ure is 126/67, oxygen saturation is 87% on 10 L high flow HEENT: Head is atraumatic, normocephalic. Pupils equal, round. Sclerae is anicteric. NECK: Supple. No JVD. No lymphadenopathy. No thyromegaly. LUNGS: Diminished breath sounds bilaterally with a few scattered rhonchi noted. No intercostal retractions. HEART: S1, S2 are muffled ABDOMEN: Soft. Bowel sounds are present. No masses. No tenderness. EXTREMITIES: No pedal edema. No calf tenderness. NEUROLOGICAL: Patient is awake, alert and oriented x3. No focal deficits noted - Labs CBC & Chem 7: 11/03/20 10:43 11/03/20 10:43 Labs: Abnormal Lab Results - Last 24 Hours (Table) 11/05/20 11/05/20 11/05/20 Range/Units 11:20 16:44 20:51 POC Glucose (mg/dL) 330 H 362 H 240 H (75-99) mg/dL 11/06/20 Range/Units 07:05 POC Glucose (mg/dL) 120 H (75-99) mg/dL Assessment and Plan Plan: Acute COVID-19 infection with acute bilateral interstitial pneumonia with acute hypoxic respiratory failure received Remdesivir and Tocluzumab. Patient remains in the steroids Acute renal failure with acute tubular necrosis improved but not normalized -Possible Citrobacter pneumonia for which patient is on Rocephin Change in mental status acute metabolic encephalopathy, improved History of recent COVID-19 vaccination History of asthma with mild acute exacerbation History of CVA, TIA Diabetes mellitus type 2 history of deep vein thrombosis gastroesophageal reflux disease Hypertension Hyperlipidemia History of sleep apnea anxiety, depression obesity with a body mass index of 34.9 Full code Recommendations and discussion: o continue with current medications and treatment. infectious disease and pul monary Dr. Cervantes following. Patient has completed Remdesivir and received a dose of Jennifer . A continues to be on 8 L high flow and weaning as tolerated. Patient continues on dexamethasone along with vitamin and zinc supplements and will continue. Patient also continues to be on Lovenox which was increased to 30 mg twice daily for elevated d-dimer.
--- NOTE | 2020-11-06 10:37 | P.PN ---
Subjective Progress Note Date: 11/06/20 Principal diagnosis: Severe sepsis due to COVID-19 pneumonia Acute COVID-19 pneumonia Acute hypoxic respiratory failure History of pulmonary fibrosis Pulmonary nodule 1.1 cm in size and right lower lobe new Hypertension hypertensive cardiovascular disease Type 2 diabetes mellitus 11/06/2020, patient seen eval examined during the rounds labs reviewed medications reviewed care plan discussed, respiratory status remains critical but stable however patient is on 11 L oxygen sats are 93%, obvious respiratory distress not much change, chest x-ray performed yesterday noted significant change has been noted, 11/05/2020, patient seen eval examined during the rounds labs reviewed medications reviewed care plan discussed, patient remains on 10 L oxygen saturations ranging from 88-90%, short of breath hypoxic denies any chest pain intermittent cough is present, noted that primary service has started Rocephin, chest x-ray earlier today continue show infiltrate bilaterally without any significant change 11/04/2020, patient seen eval examined during the rounds labs reviewed medications reviewed care plan discussed, still remained very hypoxic has been requiring 10 L high flow oxygen, short of breath on minimal activity and exertion, sats are 87% to 90%, patient remain on the standard therapy for COVID- 19 pneumonia, status post Actemra infusion, pro-calcitonin within normal limit, inflammatory parameters elevated with LDH of 878, C-reactive protein 3.6, d- dimer is 3.9 we will increase Lovenox to 3040 mg subcu every 12 computed tomography scan of the chest has been on hold due to elevated renal functions 11/03/2020, patient seen eval examined during the rounds labs reviewed medications reviewed care plan discussed, chest x-ray reviewed no significant change has been noted however patient is more short of breath and hypoxic, on 10 L now oxygen saturation is 90%, patient will benefit from a small dose of Lasix, will consult infectious disease as well and also evaluated for Actemra as patient appears to be slowly slipping into cytokines luna 11/02/2020, patient seen eval examined during the rounds labs reviewed medications reviewed care plan discussed Estrace status remains stable however patient requires slightly more oxygen now on 5 L nasal cannula, he still short of breath on activity and exertion dry nonproductive cough is present, remains on therapy for COVID-19 pneumonia with Chest x-ray tomorrow 11/01/2020, patient seen eval examined during the rounds labs reviewed medications reviewed, patient remains short of breath, temperature curve however slightly better, no fever has been noted today, patient is on 4 L, denies any chest pain, does get short of breath on activity and exertion intermittent dry coughing is present as well, patient is getting therapy for COVID-19 pneumonia 10/31/2020, Patient seen eval examined during the rounds labs reviewed medications reviewed, earlier morning patient developed increasing shortness of breath is spiked a fever of 102, no fever is down feeling slightly better, oxygen have been escalated to 4 L nasal cannula, hemodynamic status stable, blood cultures no growth, patient is on usual therapy for a COVID-19 pneumonia including REM doesn't wear and IV steroids along with supplements, This is a 70-year-old male well-known to me history of asthma and mild per May fibrosis also has a history of hypertension hypertensive cardiovascular disease diabetes mellitus, patient came into the hospital with progressive shortness of breath cough and exposure to COVID-19 pneumonia he turned positive, he had a second vaccination done a few days ago before tanning positive for covid, Objective - Vital Signs Vital signs: Vital Signs Temp 98.5 F 11/06/20 10:00 Pulse 76 11/06/20 10:00 Resp 24 11/06/20 10:00 BP 147/70 11/06/20 10:00 Pulse Ox 93 L 11/06/20 10:00 Intake & Output 11/05/20 11/06/20 11/06/20 18:59 06:59 18:59 Intake Total 472 Balance 472 Weight 113.398 kg Intake: Oral 472 Other: Voiding Method Toilet # Voids 6 2 - Exam - Constitutional General appearance: average body habitus, cooperative,ill appearing and exhausted, disheveled - EENT Eyes: PERRLA ENT: hard of hearing Ears: bilateral: normal - Neck Carotids: bilateral: upstroke normal - Respiratory Respiratory: bilateral: Crackles more so on the right side compared to left side - Cardiovascular Heart sounds: normal: S1, S2 - Gastrointestinal General gastrointestinal: distended, soft - Integumentary Integumentary: decreased turgor - Neurologic Neurologic: CNII-XII intact - Musculoskeletal Musculoskeletal: gait normal, generalized weakness, strength equal bilaterally - Psychiatric Psychiatric: A&O x's 3, appropriate affect, intact judgment & insight - Labs CBC & Chem 7: 11/03/20 10:43 11/03/20 10:43 Labs: Abnormal Lab Results - Last 24 Hours (Table) 11/05/20 11/05/20 11/05/20 Range/Units 11:20 16:44 20:51 POC Glucose (mg/dL) 330 H 362 H 240 H (75-99) mg/dL 11/06/20 Range/Units 07:05 POC Glucose (mg/dL) 120 H (75-99) mg/dL Assessment and Plan Assessment: Acute COVID-19 pneumonia severe Sepsis due to COVID-19 pneumonia Chronic kidney disease Acute hypoxic respiratory failure 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 Pulmonary nodule 1.1 cm in size and right lower lobe new Hypertension hypertensive cardiovascular disease Type 2 diabetes mellitus Plan: Reviewed chest x-ray findings noted to be stable but continue show bilateral inf iltrates Status post Actemra and 5 day therapy of IV REMdesivir infusion Increase dose of Lovenox to 30 mg subcu every 12 Consult infectious disease noted and appreciated repeat labs including inflammatory parameters Antipyretics as needed Continue supplemental oxygen titrated to keep saturation 90-92% Deep breathing exercises incentive spirometry Prone positioning Decadron daily Supplements Computed tomography scan of the chest short-term as outpatient for pulmonary nodule Time with Patient: Greater than 30
[2020-11-06 11:29] LABS: Glucose,Whole Blood 235 mg/dL (75-99)
[2020-11-06 16:30] LABS: Glucose,Whole Blood 238 mg/dL (75-99)
--- NOTE | 2020-11-06 17:36 | PN ---
PROGRESS NOTE DATE OF SERVICE: 11/06/2020 REASON FOR FOLLOWUP: COVID-19 pneumonia. INTERVAL HISTORY: The patient is currently afebrile. He mentioned he is breathing about the same or maybe slightly better. The patient denies having any chest pain. He did have a cough but no worsening. No nausea, no vomiting, no abdominal pain or diarrhea. PHYSICAL EXAMINATION: Blood pressure 111/68 with a pulse of 70, temperature 98. He is 90% on 13 L high-flow oxygen. General description is an elderly male up in the chair in no distress. RESPIRATORY SYSTEM: Unlabored breathing. Coarse breath sounds. Decreased intensity of breath sounds. No wheeze. HEART: S1, S2. Regular rate and rhythm. ABDOMEN: Soft. No tenderness. LABS: No new labs have been obtained today. DIAGNOSTIC IMPRESSION AND PLAN: Patient with acute COVID-19 pneumonia. Patient has completed his remdesivir therapy; also received a dose of Actemra. Currently on dexamethasone, Lovenox, zinc and ascorbic acid; to continue. Slight worsening of his respiratory status requiring more oxygen. Needs to be monitored closely and continue supportive care. MMODL / IJN: [id number] /
[2020-11-06] MEDS: INSULIN DETEMIR (LEVEMIR) 100 UNIT/ML SYR SQ SCH (20:13)
[2020-11-06 21:04] LABS: Glucose,Whole Blood 195 mg/dL (75-99)
[2020-11-07 06:33] LABS: Basophils % (A) 0 %; Eosinophils # (A) 0.9 k/uL (0-0.7); Eosinophils % (A) 10 %; HCT 45.5 % (39.0-53.0); HGB 15.6 gm/dL (13.0-17.5); Lymphocytes # (A) 0.3 k/uL (1.0-4.8); Lymphocytes % (A) 4 %; MCH 29.2 pg (25.0-35.0); MCHC 34.3 g/dL (31.0-37.0); MCV 85.1 fL (80.0-100.0); Monocytes # (A) 0.4 k/uL (0-1.0); Monocytes % (A) 5 %; Neutrophils # (A) 6.7 k/uL (1.3-7.7); Neutrophils % (A) 80 %; Platelet Count 169 k/uL (150-450); RBC 5.35 m/uL (4.30-5.90); RDW 12.9 % (11.5-15.5); WBC 8.4 k/uL (3.8-10.6)
[2020-11-07 06:47] LABS: African American GFR (CKD) 56 (>60 ml/min/1.73 sqM); Anion Gap 4 mmol/L; Blood Urea Nitrogen 48 mg/dL (9-20); C Reactive Protein 0.8 mg/dL (<1.0); Calcium 9.2 mg/dL (8.4-10.2); Carbon Dioxide 21 mmol/L (22-30); Chloride 107 mmol/L (98-107); Glucose 154 mg/dL (74-99); LDH 1028 U/L (313-618); Non-African American GFR(CKD) 48 (>60 ml/min/1.73 sqM); Potassium 4.6 mmol/L (3.5-5.1); Sodium 132 mmol/L (137-145)
--- NOTE | 2020-11-07 07:03 | XR ---
EXAMINATION TYPE: XR chest 1V portable DATE OF EXAM: 11/07/2020 CLINICAL HISTORY: Difficulty breathing and covid progress study. TECHNIQUE: Single AP portable upright view of the chest is obtained. COMPARISON: Chest x-ray from 2 days earlier and older studies FINDINGS: There is background chronic parenchymal changes with persistent multifocal and confluent b ilateral increased opacities. The cardiac silhouette size remains enlarged with atherosclerotic aort a. Patient remains rotated to the right. Underlying scoliotic curvature or positioning is redemonstr ated. IMPRESSION: Cardiomegaly and chronic changes with persistent bilateral multifocal and confluent opac ities consistent with covid-19 infection. No significant change from most recent x-ray.
[2020-11-07 07:10] LABS: Glucose,Whole Blood 143 mg/dL (75-99)
[2020-11-07] MEDS: ALBUTEROL HFA INHALER INHALATION SCH ×3 (07:36→19:53)
[2020-11-07] MEDS: INSULIN ASPART (NovoLOG) 100 UNIT/ML VIAL SQ SCH ×3 (07:39→17:26)
[2020-11-07] MEDS: CHOLECALCIFEROL 25 MCG (1000 IU) TABLET PO SCH (07:40)
[2020-11-07] MEDS: amLODIPine 10 MG TAB PO SCH (07:40)
[2020-11-07] MEDS: ZINC SULFATE 220 MG CAP PO SCH (07:40)
[2020-11-07] MEDS: PANTOPRAZOLE 40 MG TABLET PO SCH (07:40)
[2020-11-07] MEDS: atenoloL 25 MG TAB PO SCH (07:40)
[2020-11-07] MEDS: GABAPENTIN 300 MG CAP PO SCH (07:40)
[2020-11-07] MEDS: ASCORBIC ACID 500 MG TAB PO SCH ×2 (07:40→20:43)
[2020-11-07] MEDS: DEXAMETHASONE SOD PHOSPHATE 10 MG/ML 1 ML VIAL IV SCH (07:41)
[2020-11-07] MEDS: ENOXAPARIN 30 MG/0.3 ML SYRINGE SQ SCH ×2 (07:41→20:43)
--- NOTE | 2020-11-07 11:16 | P.PN ---
Subjective Progress Note Date: 11/07/20 Principal diagnosis: Severe sepsis due to COVID-19 pneumonia Acute COVID-19 pneumonia Acute hypoxic respiratory failure History of pulmonary fibrosis Pulmonary nodule 1.1 cm in size and right lower lobe new Hypertension hypertensive cardiovascular disease Type 2 diabetes mellitus 11/07/2020, patient seen eval examined during the rounds labs reviewed medications reviewed, remains on 11 L high flow oxygen, undergoing PT and OT, appears more awake and alert breathing slightly better compared to yesterday oxygen saturation remains low 88-90%, remains afebrile, d-dimer elevated 11, BUN/creatinine 48-1.45 LDH is over thousand, patient has finished a course of IV REM doesn't wear remains on IV Decadron, patient will likely require some oxygen at the time of discharge given history of asbestosis lung fibrosis and on top of it now COVID-19 pneumonia 11/06/2020, patient seen eval examined during the rounds labs reviewed medications reviewed care plan discussed, respiratory status remains critical but stable however patient is on 11 L oxygen sats are 93%, obvious respiratory distress not much change, chest x-ray performed yesterday noted significant change has been noted, 11/05/2020, patient seen eval examined during the rounds labs reviewed medications reviewed care plan discussed, patient remains on 10 L oxygen saturations ranging from 88-90%, short of breath hypoxic denies any chest pain intermittent cough is present, noted that primary service has started Rocephin, chest x-ray earlier today continue show infiltrate bilaterally without any significant change 11/04/2020, patient seen eval examined during the rounds labs reviewed medications reviewed care plan discussed, still remained very hypoxic has been requiring 10 L high flow oxygen, short of breath on minimal activity and exertion, sats are 87% to 90%, patient remain on the standard therapy for COVID- 19 pneumonia, status post Actemra infusion, pro-calcitonin within normal limit, inflammatory parameters elevated with LDH of 878, C-reactive protein 3.6, d- dimer is 3.9 we will increase Lovenox to 3040 mg subcu every 12 computed tomography scan of the chest has been on hold due to elevated renal functions 11/03/2020, patient seen eval examined during the rounds labs reviewed medications reviewed care plan discussed, chest x-ray reviewed no significant change has been noted however patient is more short of breath and hypoxic, on 10 L now oxygen saturation is 90%, patient will benefit from a small dose of Lasix, will consult infectious disease as well and also evaluated for Actemra as patient appears to be slowly slipping into cytokines luna 11/02/2020, patient seen eval examined during the rounds labs reviewed medications reviewed care plan discussed Estrace status remains stable however patient requires slightly more oxygen now on 5 L nasal cannula, he still short of breath on activity and exertion dry nonproductive cough is present, remains on therapy for COVID-19 pneumonia with Chest x-ray tomorrow 11/01/2020, patient seen eval examined during the rounds labs reviewed medications reviewed, patient remains short of breath, temperature curve however slightly better, no fever has been noted today, patient is on 4 L, denies any chest pain, does get short of breath on activity and exertion intermittent dry coughing is present as well, patient is getting therapy for COVID-19 pneumonia 10/31/2020, Patient seen eval examined during the rounds labs reviewed medications reviewed, earlier morning patient developed increasing shortness of breath is spiked a fever of 102, no fever is down feeling slightly better, oxygen have been escalated to 4 L nasal cannula, hemodynamic status stable, blood cultures no growth, patient is on usual therapy for a COVID-19 pneumonia including REM doesn't wear and IV steroids along with supplements, This is a 70-year-old male well-known to me history of asthma and mild per May fibrosis also has a history of hypertension hypertensive cardiovascular disease diabetes mellitus, patient came into the hospital with progressive shortness of breath cough and exposure to COVID-19 pneumonia he turned positive, he had a second vaccination done a few days ago before tanning positive for covid, Objective - Vital Signs Vital signs: Vital Signs Temp 98.9 F 11/07/20 09:54 Pulse 74 11/07/20 09:54 Resp 16 11/07/20 09:54 BP 134/70 11/07/20 09:54 Pulse Ox 88 L 11/07/20 09:54 Intake & Output 11/06/20 11/07/20 11/07/20 18:59 06:59 18:59 Intake Total 300 236 Output Total 150 Balance 150 236 Intake: Oral 300 236 Output: Urine 150 Other: Voiding Method Toilet Toilet # Voids 3 33 - Exam - Constitutional General appearance: average body habitus, cooperative,ill appearing and exhausted, disheveled - EENT Eyes: PERRLA ENT: hard of hearing Ears: bilateral: normal - Neck Carotids: bilateral: upstroke normal - Respiratory Respiratory: bilateral: Crackles more so on the right side compared to left side - Cardiovascular Heart sounds: normal: S1, S2 - Gastrointestinal General gastrointestinal: distended, soft - Integumentary Integumentary: decreased turgor - Neurologic Neurologic: CNII-XII intact - Musculoskeletal Musculoskeletal: gait normal, generalized weakness, strength equal bilaterally - Psychiatric Psychiatric: A&O x's 3, appropriate affect, intact judgment & insight - Labs CBC & Chem 7: 11/07/20 05:44 11/07/20 05:44 Labs: Abnormal Lab Results - Last 24 Hours (Table) 11/06/20 11/06/20 11/06/20 Range/Units 11:28 16:28 21:00 Lymphocytes # (1.0-4.8) k/uL Eosinophils # (0-0.7) k/uL D-Dimer (<0.60) mg/L FEU Sodium (137-145) mmol/L Carbon Dioxide (22-30) mmol/L BUN (9-20) mg/dL Creatinine (0.66-1.25) mg/dL Glucose (74-99) mg/dL POC Glucose (mg/dL) 235 H 238 H 195 H (75-99) mg/dL Lactate Dehydrogenase (313-618) U/L 11/07/20 11/07/20 11/07/20 Range/Units 05:44 05:44 05:44 Lymphocytes # 0.3 L (1.0-4.8) k/uL Eosinophils # 0.9 H (0-0.7) k/uL D-Dimer 11.07 H (<0.60) mg/L FEU Sodium 132 L (137-145) mmol/L Carbon Dioxide 21 L (22-30) mmol/L BUN 48 H (9-20) mg/dL Creatinine 1.45 H (0.66-1.25) mg/dL Glucose 154 H (74-99) mg/dL POC Glucose (mg/dL) (75-99) mg/dL Lactate Dehydrogenase 1028 H (313-618) U/L 11/07/20 Range/Units 07:09 Lymphocytes # (1.0-4.8) k/uL Eosinophils # (0-0.7) k/uL D-Dimer (<0.60) mg/L FEU Sodium (137-145) mmol/L Carbon Dioxide (22-30) mmol/L BUN (9-20) mg/dL Creatinine (0.66-1.25) mg/dL Glucose (74-99) mg/dL POC Glucose (mg/dL) 143 H (75-99) mg/dL Lactate Dehydrogenase (313-618) U/L Assessment and Plan Assessment: Acute COVID-19 pneumonia severe Sepsis due to COVID-19 pneumonia Chronic kidney disease Acute hypoxic respiratory failure 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 Pulmonary nodule 1.1 cm in size and right lower lobe new Hypertension hypertensive cardiovascular disease Type 2 diabetes mellitus Plan: Reviewed chest x-ray findings noted to be stable but continue show bilateral infiltrates Status post Actemra and 5 day therapy of IV REMdesivir infusion Continue Lovenox 30 mg subcu every 12 Consult infectious disease noted and appreciated repeat labs including inflammatory parameters Antipyretics as needed Continue supplemental oxygen titrated to keep saturation 90-92% Deep breathing exercises incentive spirometry Prone positioning Decadron daily Supplements Computed tomography scan of the chest short-term as outpatient for pulmonary nodule Time with Patient: Greater than 30
[2020-11-07 11:47] LABS: Glucose,Whole Blood 188 mg/dL (75-99)
--- NOTE | 2020-11-07 12:30 | P.PN ---
Subjective Progress Note Date: 11/06/20 This is a 70-year-old male who was recently admitted with acute Covid 19 infection with acute COVID-19 bilateral pneumonia also acute hypoxic respiratory failure and is being closely monitored. Pulmonary Dr. Cervantes along with infectious disease following. Patient has completed Remdesivir and is maintained on Lovenox along with dexamethasone and vitamin and zinc supplements and will continue. Patient received a dose of Tocilizumab yesterday. Chest x-ray today shows cardiomegaly and chronic changes with persistent multifocal and confluent opacities consistent with COVID-19 infection with no significant change from previous. Initiating IV ceftriaxone. Patient continues on 10 L high flow with oxygen saturations to 87 and 91%. Patient states that his breathing and shortness of breath is about the same with no improvement and no worsening. Patient is tolerating diet with no reports of nausea or vomiting patient is getting up and walking as tolerated. Patient continues to be dyspneic with min imal exertion. 11/05/2020 Patient remains on 8 L of oxygen his respiratory condition is not better. And patient remains on antibiotics for secondary bacterial pneumonia as well and patient remains on Decadron completed Remdesivir and actemra therapy. 11/06/2020 Patient continues to be on high flow 11-13 L of oxygen via nasal cannula continues to be extremely dyspneic and winded with minimal exertion and requiring assistance as he fatigues easily. Patient states he is recovering although it takes a long time even getting up to the commode. Patient is tolerating diet with no reports of nausea or vomiting. She continues on dexamethasone along with Lovenox twice daily and vitamin and zinc supplements. Patient is maintained on IV ceftriaxone and will likely discontinue. Review of systems: Constitutional: reports of fatigue, no reports of fever, or chills Cardiovascular: No reports of chest pain or palpitations Respiratory: Reports continued shortness of breath with minimal exertion GI: No reports of nausea, vomiting, or diarrhea : No reports of dysuria or retention Neurovascular: Reports generalized weakness All medications have been reviewed Objective - Vital Signs Vital signs: Vital Signs Temp 98.0 F 11/07/20 05:05 Pulse 65 11/07/20 05:05 Resp 19 11/07/20 05:05 BP 149/78 11/07/20 05:05 Pulse Ox 90 L 11/07/20 05:05 Intake & Output 11/06/20 11/07/20 11/07/20 18:59 06:59 18:59 Intake Total 300 Output Total 150 Balance 150 Intake: Oral 300 Output: Urine 150 Other: Voiding Method Toilet Toilet # Voids 3 33 - Exam Gen: This is a 70-year-old male awake, alert and oriented 3, well-developed, well-nourished. Currently on 11-13 L high flow nasal cannula HEENT: Head is atraumatic, normocephalic. Pupils equal, round. Sclerae is anicteric. NECK: Supple. No JVD. No lymphadenopathy. No thyromegaly. LUNGS: Diminished breath sounds bilaterally with a few scattered rhonchi noted. No intercostal retractions. HEART: S1, S2 are muffled ABDOMEN: Soft. Bowel sounds are present. No masses. No tenderness. EXTREMITIES: No pedal edema. No calf tenderness. NEUROLOGICAL: Patient is awake, alert and oriented x3. No focal deficits noted. Diffusely weak - Labs CBC & Chem 7: 11/07/20 05:44 11/07/20 05:44 Labs: Abnormal Lab Results - Last 24 Hours (Table) 11/06/20 11/06/20 11/06/20 Range/Units 11:28 16:28 21:00 Lymphocytes # (1.0-4.8) k/uL Eosinophils # (0-0.7) k/uL D-Dimer (<0.60) mg/L FEU Sodium (137-145) mmol/L Carbon Dioxide (22-30) mmol/L BUN (9-20) mg/dL Creatinine (0.66-1.25) mg/dL Glucose (74-99) mg/dL POC Glucose (mg/dL) 235 H 238 H 195 H (75-99) mg/dL Lactate Dehydrogenase (313-618) U/L 11/07/20 11/07/20 11/07/20 Range/Units 05:44 05:44 05:44 Lymphocytes # 0.3 L (1.0-4.8) k/uL Eosinophils # 0.9 H (0-0.7) k/uL D-Dimer 11.07 H (<0.60) mg/L FEU Sodium 132 L (137-145) mmol/L Carbon Dioxide 21 L (22-30) mmol/L BUN 48 H (9-20) mg/dL Creatinine 1.45 H (0.66-1.25) mg/dL Glucose 154 H (74-99) mg/dL POC Glucose (mg/dL) (75-99) mg/dL Lactate Dehydrogenase 1028 H (313-618) U/L 11/07/20 Range/Units 07:09 Lymphocytes # (1.0-4.8) k/uL Eosinophils # (0-0.7) k/uL D-Dimer (<0.60) mg/L FEU Sodium (137-145) mmol/L Carbon Dioxide (22-30) mmol/L BUN (9-20) mg/dL Creatinine (0.66-1.25) mg/dL Glucose (74-99) mg/dL POC Glucose (mg/dL) 143 H (75-99) mg/dL Lactate Dehydrogenase (313-618) U/L Assessment and Plan Assessment: Acute COVID-19 infection with acute bilateral interstitial pneumonia with acute hypoxic respiratory failure received Remdesivir and Jennifer Continued fever, improved Severe lymphopenia Acute renal failure with acute tubular necrosis Change in mental status acute metabolic encephalopathy Tachycardia History of recent COVID-19 vaccination History of asthma history of chest pain History of CVA, TIA Diabetes mellitus type 2 history of deep vein thrombosis history of gastroesophageal reflux disease Hypertension Hyperlipidemia History of pneumonia History of sleep apnea History of cardiac arrhythmia history of hiatal hernia History of asbestosis History of appendectomy History of anxiety, depression obesity with a body mass index of 34.9 history of nicotine dependence Full code Recommendations and discussion: Recommend to continue with current medications and treatment. Multiple medical consultations including infectious disease and pulmonary Dr. Cervantes following. Patient has completed Remdesivir and received a dose of Jennifer. Patient continues to be on 11-13 L high flow and discussed with nursing staff about weaning as tolerated. Patient continues on dexamethasone along with vitamin and zinc supplements and will continue. Patient also continues to be on Lovenox which was increased to 30 mg twice daily for elevated d-dimer. Will repeat a.m. labs along with inflammatory markers and continue to monitor closely.
--- NOTE | 2020-11-07 12:35 | P.PN ---
Subjective Progress Note Date: 11/07/20 This is a 70-year-old male who was recently admitted with acute Covid 19 infection with acute COVID-19 bilateral pneumonia also acute hypoxic respiratory failure and is being closely monitored. Pulmonary Dr. Cervantes along with infectious disease following. Patient has completed Remdesivir and is maintained on Lovenox along with dexamethasone and vitamin and zinc supplements and will continue. Patient received a dose of Tocilizumab yesterday. Chest x-ray today shows cardiomegaly and chronic changes with persistent multifocal and confluent opacities consistent with COVID-19 infection with no significant change from previous. Initiating IV ceftriaxone. Patient continues on 10 L high flow with oxygen saturations to 87 and 91%. Patient states that his breathing and shortness of breath is about the same with no improvement and no worsening. Patient is tolerating diet with no reports of nausea or vomiting patient is getting up and walking as tolerated. Patient continues to be dyspneic with min imal exertion. 11/05/2020 Patient remains on 8 L of oxygen his respiratory condition is not better. And patient remains on antibiotics for secondary bacterial pneumonia as well and patient remains on Decadron completed Remdesivir and actemra therapy. 11/06/2020 Patient continues to be on high flow 11-13 L of oxygen via nasal cannula continues to be extremely dyspneic and winded with minimal exertion and requiring assistance as he fatigues easily. Patient states he is recovering although it takes a long time even getting up to the commode. Patient is tolerating diet with no reports of nausea or vomiting. She continues on dexamethasone along with Lovenox twice daily and vitamin and zinc supplements. Patient is maintained on IV ceftriaxone and will likely discontinue. 11/07/2020 Patient seen and evaluated in follow-up this morning back down to 11 L of oxygen high flow via nasal cannula and still extremely dyspneic even with conversation. Incentive spirometer at the bedside the patient states he is using but is very difficult as he becomes winded with that. Patient also states that he is weak and has been working with physical therapy and requires assistance getting up to the commode next to the chair. CBC and white count within normal limits, d- dimer is 11.07 and continues to be on Lovenox which has been made twice daily. Pulmonary is following. IV ceftriaxone has been discontinued. Creatinine slightly worse at 1.45 with a BUN of 48 and sodium is 132 with a potassium of 4.6. LDH is elevated at 1028. Patient to continue with Accu-Cheks and sliding scale along with long-acting and patient is continued on dexamethasone. Encourage the patient to continue using incentive spirometer and increasing activity as tolerated. Review of systems: Constitutional: reports of fatigue, no reports of fever, or chills Cardiovascular: No reports of chest pain or palpitations Respiratory: Reports continued shortness of breath with minimal exertion GI: No reports of nausea, vomiting, or diarrhea : No reports of dysuria or retention Neurovascular: Reports generalized weakness All medications have been reviewed Active Medications Acetaminophen (Acetaminophen Tab 325 Mg Tab) 650 mg PO Q6HR PRN PRN Reason: Mild Pain or Fever > 100.5 Last Admin: 10/31/20 08:12 Dose: 650 mg Documented by: Albuterol Sulfate (Albuterol Hfa Inhaler) 2 puff INHALATION RT-TID [facility] Last Admin: 11/07/20 11:44 Dose: 2 puff Documented by: Albuterol Sulfate (Albuterol Hfa Inhaler) 2 puff INHALATION RT-TID PRN PRN Reason: Shortness Of Breath Or Wheezing Last Admin: 10/31/20 04:48 Dose: 2 puff Documented by: Alprazolam (Alprazolam 0.25 Mg Tab) 0.25 mg PO TID PRN PRN Reason: Anxiety Amlodipine Besylate (Amlodipine 10 Mg Tab) 10 mg PO DAILY [facility] Last Admin: 11/07/20 07:40 Dose: 10 mg Documented by: Ascorbic Acid (Ascorbic Acid 500 Mg Tab) 500 mg PO BID [facility] Last Admin: 11/07/20 07:40 Dose: 500 mg Documented by: Atenolol (Atenolol 25 Mg Tab) 25 mg PO DAILY [facility] Last Admin: 11/07/20 07:40 Dose: 25 mg Documented by: Cholecalciferol (Cholecalciferol 25 Mcg (1000 Iu) Tablet) 125 mcg PO DAILY [facility] Last Admin: 11/07/20 07:40 Dose: 125 mcg Documented by: Dexamethasone Sodium Phosphate (Dexamethasone Sod Phosphate 10 Mg/Ml 1 Ml Vial) 6 mg IV DAILY [facility] Last Admin: 11/07/20 07:41 Dose: 6 mg Documented by: Enoxaparin Sodium (Enoxaparin 30 Mg/0.3 Ml Syringe) 30 mg SQ Q12HR [facility] Last Admin: 11/07/20 07:41 Dose: 30 mg Documented by: Gabapentin (Gabapentin 300 Mg Cap) 300 mg PO DAILY [facility] Last Admin: 11/07/20 07:40 Dose: 300 mg Documented by: Insulin Aspart (Insulin Aspart (Novolog) 100 Unit/Ml Vial) 10 unit SQ TID- W/MEALS [facility] Last Admin: 11/07/20 07:39 Dose: 10 unit Documented by: Insulin Detemir (Insulin Detemir (Levemir) 100 Unit/Ml Syr) 40 unit SQ HS [facility] Last Admin: 11/06/20 20:13 Dose: 40 unit Documented by: Naloxone HCl (Naloxone 0.4 Mg/Ml 1 Ml Vial) 0.2 mg IV Q2M PRN PRN Reason: Opioid Reversal Ondansetron HCl (Ondansetron 4 Mg/2 Ml Vial) 4 mg IVP Q8HR PRN PRN Reason: Nausea And Vomiting Pantoprazole Sodium (Pantoprazole 40 Mg Tablet) 40 mg PO AC-BRKFST [facility] Last Admin: 11/07/20 07:40 Dose: 40 mg Documented by: Senna (Sennosides 8.6 Mg Tab) 8.6 mg PO BID PRN PRN Reason: Constipation Zinc Sulfate (Zinc Sulfate 220 Mg Cap) 220 mg PO DAILY [facility] Last Admin: 11/07/20 07:40 Dose: 220 mg Documented by: Objective - Vital Signs Vital signs: Vital Signs Temp 98.0 F 11/07/20 05:05 Pulse 65 11/07/20 05:05 Resp 19 11/07/20 05:05 BP 149/78 11/07/20 05:05 Pulse Ox 90 L 11/07/20 05:05 Intake & Output 11/06/20 11/07/20 11/07/20 18:59 06:59 18:59 Intake Total 300 Output Total 150 Balance 150 Intake: Oral 300 Output: Urine 150 Other: Voiding Method Toilet Toilet # Voids 3 33 - Exam Gen: This is a 70-year-old male awake, alert and oriented 3, well-developed, well-nourished. Sitting up in the chair. Currently on 11 L high flow nasal cannula which is being titrated slowly as tolerated and maintaining 88% on 9 L high flow HEENT: Head is atraumatic, normocephalic. Pupils equal, round. Sclerae is anicteric. NECK: Supple. No JVD. No lymphadenopathy. No thyromegaly. LUNGS: Diminished breath sounds bilaterally with a few scattered rhonchi noted. No intercostal retractions. HEART: S1, S2 are muffled ABDOMEN: Soft. Bowel sounds are present. No masses. No tenderness. EXTREMITIES: No pedal edema. No calf tenderness. NEUROLOGICAL: Patient is awake, alert and oriented x3. No focal deficits noted. Diffusely weak - Labs CBC & Chem 7: 11/07/20 05:44 11/07/20 05:44 Labs: Abnormal Lab Results - Last 24 Hours (Table) 11/06/20 11/06/20 11/06/20 Range/Units 11:28 16:28 21:00 Lymphocytes # (1.0-4.8) k/uL Eosinophils # (0-0.7) k/uL D-Dimer (<0.60) mg/L FEU Sodium (137-145) mmol/L Carbon Dioxide (22-30) mmol/L BUN (9-20) mg/dL Creatinine (0.66-1.25) mg/dL Glucose (74-99) mg/dL POC Glucose (mg/dL) 235 H 238 H 195 H (75-99) mg/dL Lactate Dehydrogenase (313-618) U/L 11/07/20 11/07/20 11/07/20 Range/Units 05:44 05:44 05:44 Lymphocytes # 0.3 L (1.0-4.8) k/uL Eosinophils # 0.9 H (0-0.7) k/uL D-Dimer 11.07 H (<0.60) mg/L FEU Sodium 132 L (137-145) mmol/L Carbon Dioxide 21 L (22-30) mmol/L BUN 48 H (9-20) mg/dL Creatinine 1.45 H (0.66-1.25) mg/dL Glucose 154 H (74-99) mg/dL POC Glucose (mg/dL) (75-99) mg/dL Lactate Dehydrogenase 1028 H (313-618) U/L 11/07/20 Range/Units 07:09 Lymphocytes # (1.0-4.8) k/uL Eosinophils # (0-0.7) k/uL D-Dimer (<0.60) mg/L FEU Sodium (137-145) mmol/L Carbon Dioxide (22-30) mmol/L BUN (9-20) mg/dL Creatinine (0.66-1.25) mg/dL Glucose (74-99) mg/dL POC Glucose (mg/dL) 143 H (75-99) mg/dL Lactate Dehydrogenase (313-618) U/L Assessment and Plan Assessment: Acute COVID-19 infection with acute bilateral interstitial pneumonia with acute hypoxic respiratory failure received Remdesivir and Jennifer Continued fever, improved Severe lymphopenia Acute renal failure with acute tubular necrosis Change in mental status acute metabolic encephalopathy, improved Tachycardia History of recent COVID-19 vaccination History of asthma history of chest pain History of CVA, TIA Diabetes mellitus type 2 history of deep vein thrombosis history of gastroesophageal reflux disease Hypertension Hyperlipidemia History of pneumonia History of sleep apnea History of cardiac arrhythmia history of hiatal hernia History of asbestosis History of appendectomy History of anxiety, depression obesity with a body mass index of 34.9 history of nicotine dependence Full code Recommendations and discussion: Recommend to continue with current medications and treatment. Multiple medical consultations including infectious disease and pulmonary Dr. Cervantes following. Patient has completed Remdesivir and received a dose of Jennifer. Patient continues to be on 11 L high flow and discussed with nursing staff about weaning as tolerated. Currently at 9 L high flow maintaining 88-89% oxygen saturation. Patient continues on dexamethasone along with vitamin and zinc supplements and will continue. Patient also continues to be on Lovenox which was increased to 30 mg twice daily for elevated d-dimer. Chest x-ray today shows cardiomegaly and chronic changes with persistent bilateral multifocal and confluent opacities consistent with COVID-19 infection with no significant changes from most recent x-ray.
[2020-11-07 17:11] LABS: Glucose,Whole Blood 346 mg/dL (75-99)
--- NOTE | 2020-11-07 18:54 | PN ---
PROGRESS NOTE DATE OF SERVICE: 11/07/2020 REASON FOR FOLLOWUP: COVID-19 pneumonia. INTERVAL HISTORY: The patient is currently afebrile. He mentioned he is breathing slightly comfortably. However, the patient is still requiring 11 to 13 liters of high-flow nasal cannula oxygen. The patient denies having any chest pain or any worsening cough, abdominal pain or diarrhea. PHYSICAL EXAMINATION: Blood pressure 113/71, pulse 87, temperature 97.7. He is 91% on 13 L nasal cannula. General description is an elderly male up in the bed in no distress. RESPIRATORY SYSTEM: Unlabored breathing. A few coarse breath sounds in the bases. No wheeze. HEART: S1, S2. Regular rate and rhythm. ABDOMEN: Soft. No tenderness. LABS: Hemoglobin is 15.6, white count 8.4. D-dimer is up to 11.07. BUN of 48, creatinine 1.45. DIAGNOSTIC IMPRESSION AND PLAN: Patient with acute COVID-19 pneumonia in this patient who has received remdesivir as well as Actemra; however, he seems to have slight worsening of his respiratory status. Patient is covered with dexamethasone, Lovenox, zinc and ascorbic acid. With elevated D- dimer, may benefit from V/Q scan. Will discuss further with Pulmonary. CT angiogram could not be completed because of his kidney function. MMODL / IJN: [id number] /
[2020-11-07 20:27] LABS: Glucose,Whole Blood 414 mg/dL (75-99)
[2020-11-07] MEDS: INSULIN DETEMIR (LEVEMIR) 100 UNIT/ML SYR SQ SCH (20:43)
[2020-11-08 07:24] LABS: Glucose,Whole Blood 270 mg/dL (75-99)
[2020-11-08] MEDS: ZINC SULFATE 220 MG CAP PO SCH (07:55)
[2020-11-08] MEDS: CHOLECALCIFEROL 25 MCG (1000 IU) TABLET PO SCH (07:55)
[2020-11-08] MEDS: GABAPENTIN 300 MG CAP PO SCH (07:55)
[2020-11-08] MEDS: DEXAMETHASONE SOD PHOSPHATE 10 MG/ML 1 ML VIAL IV SCH (07:55)
[2020-11-08] MEDS: amLODIPine 10 MG TAB PO SCH (07:55)
[2020-11-08] MEDS: PANTOPRAZOLE 40 MG TABLET PO SCH (07:55)
[2020-11-08] MEDS: INSULIN ASPART (NovoLOG) 100 UNIT/ML VIAL SQ SCH ×3 (07:56→18:27)
[2020-11-08] MEDS: atenoloL 25 MG TAB PO SCH (07:56)
[2020-11-08] MEDS: ASCORBIC ACID 500 MG TAB PO SCH ×2 (07:56→21:26)
[2020-11-08] MEDS: ENOXAPARIN 30 MG/0.3 ML SYRINGE SQ SCH ×2 (07:56→21:26)
[2020-11-08] MEDS: ALBUTEROL HFA INHALER INHALATION SCH ×3 (08:01→20:20)
[2020-11-08] MEDS ORDERED: TOCILIZUMAB 800 MG in SODIUM CHLORIDE 0.9% 80 ML IV ONE (09:54)
--- NOTE | 2020-11-08 10:12 | P.PN ---
Subjective Progress Note Date: 11/08/20 Principal diagnosis: Severe sepsis due to COVID-19 pneumonia Acute COVID-19 pneumonia Acute hypoxic respiratory failure History of pulmonary fibrosis Pulmonary nodule 1.1 cm in size and right lower lobe new Hypertension hypertensive cardiovascular disease Type 2 diabetes mellitus 11/08/2020, patient seen eval examined during the rounds labs reviewed medications reviewed patient is undergoing physical therapy by physical therapist, with 13 L walking in the room respiratory status is remains stable, denies any chest pain oxygen saturation remains in low 90s, hemodynamic status stable, review of the records revealed that patient had the infusion with Tocilizumab on November 03, a second dose is not an option per pharmacy guideline 11/07/2020, patient seen eval examined during the rounds labs reviewed medications reviewed, remains on 11 L high flow oxygen, undergoing PT and OT, appears more awake and alert breathing slightly better compared to yesterday oxygen saturation remains low 88-90%, remains afebrile, d-dimer elevated 11, BUN/creatinine 48-1.45 LDH is over thousand, patient has finished a course of IV REM doesn't wear remains on IV Decadron, patient will likely require some oxygen at the time of discharge given history of asbestosis lung fibrosis and on top of it now COVID-19 pneumonia 11/06/2020, patient seen eval examined during the rounds labs reviewed medications reviewed care plan discussed, respiratory status remains critical but stable however patient is on 11 L oxygen sats are 93%, obvious respiratory distress not much change, chest x-ray performed yesterday noted significant change has been noted, 11/05/2020, patient seen eval examined during the rounds labs reviewed medications reviewed care plan discussed, patient remains on 10 L oxygen saturations ranging from 88-90%, short of breath hypoxic denies any chest pain intermittent cough is present, noted that primary service has started Rocephin, chest x-ray earlier today continue show infiltrate bilaterally without any significant change 11/04/2020, patient seen eval examined during the rounds labs reviewed medications reviewed care plan discussed, still remained very hypoxic has been requiring 10 L high flow oxygen, short of breath on minimal activity and exertion, sats are 87% to 90%, patient remain on the standard therapy for COVID- 19 pneumonia, status post Actemra infusion, pro-calcitonin within normal limit, inflammatory parameters elevated with LDH of 878, C-reactive protein 3.6, d- dimer is 3.9 we will increase Lovenox to 3040 mg subcu every 12 computed tomography scan of the chest has been on hold due to elevated renal functions 11/03/2020, patient seen eval examined during the rounds labs reviewed medications reviewed care plan discussed, chest x-ray reviewed no significant change has been noted however patient is more short of breath and hypoxic, on 10 L now oxygen saturation is 90%, patient will benefit from a small dose of Lasix, will consult infectious disease as well and also evaluated for Actemra as patient appears to be slowly slipping into cytokines luna 11/02/2020, patient seen eval examined during the rounds labs reviewed medications reviewed care plan discussed Estrace status remains stable however patient requires slightly more oxygen now on 5 L nasal cannula, he still short of breath on activity and exertion dry nonproductive cough is present, remains on therapy for COVID-19 pneumonia with Chest x-ray tomorrow 11/01/2020, patient seen eval examined during the rounds labs reviewed medications reviewed, patient remains short of breath, temperature curve however slightly better, no fever has been noted today, patient is on 4 L, denies any chest pain, does get short of breath on activity and exertion intermittent dry coughing is present as well, patient is getting therapy for COVID-19 pneumonia 10/31/2020, Patient seen eval examined during the rounds labs reviewed medications reviewed, earlier morning patient developed increasing shortness of breath is spiked a fever of 102, no fever is down feeling slightly better, oxygen have been escalated to 4 L nasal cannula, hemodynamic status stable, blood cultures no growth, patient is on usual therapy for a COVID-19 pneumonia including REM doesn't wear and IV steroids along with supplements, This is a 70-year-old male well-known to me history of asthma and mild per May fibrosis also has a history of hypertension hypertensive cardiovascular disease diabetes mellitus, patient came into the hospital with progressive shortness of breath cough and exposure to COVID-19 pneumonia he turned positive, he had a second vaccination done a few days ago before tanning positive for covid, Objective - Vital Signs Vital signs: Vital Signs Temp 97.9 F 11/08/20 05:32 Pulse 75 11/08/20 05:32 Resp 22 11/08/20 05:32 BP 132/78 11/08/20 05:32 Pulse Ox 90 L 11/08/20 05:32 Intake & Output 11/07/20 11/08/20 11/08/20 18:59 06:59 18:59 Intake Total 472 Output Total 300 Balance 172 Intake: Oral 472 Output: Urine 300 Other: Voiding Method Toilet Urinal - Exam - Constitutional General appearance: average body habitus, cooperative,ill appearing and exhausted, disheveled - EENT Eyes: PERRLA ENT: hard of hearing Ears: bilateral: normal - Neck Carotids: bilateral: upstroke normal - Respiratory Respiratory: bilateral: Crackles more so on the right side compared to left side - Cardiovascular Heart sounds: normal: S1, S2 - Gastrointestinal General gastrointestinal: distended, soft - Integumentary Integumentary: decreased turgor - Neurologic Neurologic: CNII-XII intact - Musculoskeletal Musculoskeletal: gait normal, generalized weakness, strength equal bilaterally - Psychiatric Psychiatric: A&O x's 3, appropriate affect, intact judgment & insight - Labs CBC & Chem 7: 11/07/20 05:44 11/07/20 05:44 Labs: Abnormal Lab Results - Last 24 Hours (Table) 11/07/20 11/07/20 11/07/20 Range/Units 11:46 17:10 20:25 POC Glucose (mg/dL) 188 H 346 H 414 H (75-99) mg/dL 11/08/20 Range/Units 07:22 POC Glucose (mg/dL) 270 H (75-99) mg/dL Assessment and Plan Assessment: Acute COVID-19 pneumonia severe Sepsis due to COVID-19 pneumonia Chronic kidney disease Acute hypoxic respiratory failure 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 Pulmonary nodule 1.1 cm in size and right lower lobe new Hypertension hypertensive cardiovascular disease Type 2 diabetes mellitus Plan: Reviewed chest x-ray findings noted to be stable but continue show bilateral infiltrates Status post Actemra and 5 day therapy of IV REMdesivir infusion Continue Lovenox 30 mg subcu every 12 Consult infectious disease noted and appreciated repeat labs including inflammatory parameters Antipyretics as needed Continue supplemental oxygen titrated to keep saturation 90-92% Deep breathing exercises incentive spirometry Prone positioning Decadron daily Supplements Computed tomography scan of the chest short-term as outpatient for pulmonary nodule Time with Patient: Greater than 30
[2020-11-08 11:51] LABS: Glucose,Whole Blood 279 mg/dL (75-99)
--- NOTE | 2020-11-08 15:51 | P.PN ---
Subjective Progress Note Date: 11/08/20 This is a 70-year-old male who was recently admitted with acute Covid 19 infection with acute COVID-19 bilateral pneumonia also acute hypoxic respiratory failure and is being closely monitored. Pulmonary Dr. Cervantes along with infectious disease following. Patient has completed Remdesivir and is maintained on Lovenox along with dexamethasone and vitamin and zinc supplements and will continue. Patient received a dose of Tocilizumab yesterday. Chest x-ray today shows cardiomegaly and chronic changes with persistent multifocal and confluent opacities consistent with COVID-19 infection with no significant change from previous. Initiating IV ceftriaxone. Patient continues on 10 L high flow with oxygen saturations to 87 and 91%. Patient states that his breathing and shortness of breath is about the same with no improvement and no worsening. Patient is tolerating diet with no reports of nausea or vomiting patient is getting up and walking as tolerated. Patient continues to be dyspneic with min imal exertion. 11/05/2020 Patient remains on 8 L of oxygen his respiratory condition is not better. And patient remains on antibiotics for secondary bacterial pneumonia as well and patient remains on Decadron completed Remdesivir and actemra therapy. 11/06/2020 Patient continues to be on high flow 11-13 L of oxygen via nasal cannula continues to be extremely dyspneic and winded with minimal exertion and requiring assistance as he fatigues easily. Patient states he is recovering although it takes a long time even getting up to the commode. Patient is tolerating diet with no reports of nausea or vomiting. She continues on dexamethasone along with Lovenox twice daily and vitamin and zinc supplements. Patient is maintained on IV ceftriaxone and will likely discontinue. 11/07/2020 Patient seen and evaluated in follow-up this morning back down to 11 L of oxygen high flow via nasal cannula and still extremely dyspneic even with conversation. Incentive spirometer at the bedside the patient states he is using but is very difficult as he becomes winded with that. Patient also states that he is weak and has been working with physical therapy and requires assistance getting up to the commode next to the chair. CBC and white count within normal limits, d- dimer is 11.07 and continues to be on Lovenox which has been made twice daily. Pulmonary is following. IV ceftriaxone has been discontinued. Creatinine slightly worse at 1.45 with a BUN of 48 and sodium is 132 with a potassium of 4.6. LDH is elevated at 1028. Patient to continue with Accu-Cheks and sliding scale along with long-acting and patient is continued on dexamethasone. Encourage the patient to continue using incentive spirometer and increasing activity as tolerated. 11/08/2020 Patient is seen in follow-up today maintained on 13 L high flow maintaining oxygen saturations above 90% and will continue to wean FiO2 as tolerated. Patient appears more comfortable with his breathing and was having a full conv ersation on the phone without exerting. Patient continues to be dyspneic with getting up and position changes and states he feels his breathing is slightly improved although requiring more oxygen to maintain above 90%. Patient continues on Lovenox along with dexamethasone and vitamin and zinc supplements and will continue. Will repeat a.m. labs along with a chest x-ray and monitor closely. Review of systems: Constitutional: reports of fatigue, no reports of fever, or chills Cardiovascular: No reports of chest pain or palpitations Respiratory: Reports continued shortness of breath with minimal exertion GI: No reports of nausea, vomiting, or diarrhea : No reports of dysuria or retention Neurovascular: Reports generalized weakness All medications have been reviewed Active Medications Generic Name Dose Route Start Last Admin Trade Name Freq PRN Reason Stop Dose Admin Acetaminophen 650 mg 10/29/20 15:52 10/31/20 08:12 Acetaminophen Tab 325 Mg Tab PO 650 mg Q6HR PRN Administration Mild Pain or Fever > 100.5 Albuterol Sulfate 2 puff 10/29/20 20:00 11/08/20 11:50 Albuterol Hfa Inhaler INHALATION 2 puff RT-TID ISABELLE Administration Albuterol Sulfate 2 puff 10/29/20 17:59 10/31/20 04:48 Albuterol Hfa Inhaler INHALATION 2 puff RT-TID PRN Administration Shortness Of Breath Or Wheezing Alprazolam 0.25 mg 10/29/20 17:58 Alprazolam 0.25 Mg Tab PO TID PRN Anxiety Amlodipine Besylate 10 mg 11/02/20 15:30 11/08/20 07:55 Amlodipine 10 Mg Tab PO 10 mg DAILY ISABELLE Administration Ascorbic Acid 500 mg 10/29/20 21:00 11/08/20 07:56 Ascorbic Acid 500 Mg Tab PO 500 mg BID ISABELLE Administration Atenolol 25 mg 10/30/20 09:00 11/08/20 07:56 Atenolol 25 Mg Tab PO 25 mg DAILY ISABELLE Administration Cholecalciferol 125 mcg 10/30/20 09:00 11/08/20 07:55 Cholecalciferol 25 Mcg (1000 Iu) Tablet PO 125 mcg DAILY ISABELLE Administration Dexamethasone Sodium Phosphate 6 mg 10/30/20 09:00 11/08/20 07:55 Dexamethasone Sod Phosphate 10 Mg/Ml 1 Ml Vial IV 6 mg DAILY ISABELLE Administration Enoxaparin Sodium 30 mg 11/04/20 21:00 11/08/20 07:56 Enoxaparin 30 Mg/0.3 Ml Syringe SQ 30 mg Q12HR ISABELLE Administration Gabapentin 300 mg 10/30/20 09:00 11/08/20 07:55 Gabapentin 300 Mg Cap PO 300 mg DAILY ISABELLE Administration Insulin Aspart 10 unit 10/30/20 07:30 11/08/20 12:34 Insulin Aspart (Novolog) 100 Unit/Ml Vial SQ 10 unit TID-W/MEALS [facility] Administration Insulin Detemir 40 unit 11/03/20 21:00 11/07/20 20:43 Insulin Detemir (Levemir) 100 Unit/Ml Syr SQ 40 unit HS [facility] Administration Naloxone HCl 0.2 mg 10/29/20 15:52 Naloxone 0.4 Mg/Ml 1 Ml Vial IV Q2M PRN Opioid Reversal Ondansetron HCl 4 mg 10/29/20 15:52 Ondansetron 4 Mg/2 Ml Vial IVP Q8HR PRN Nausea And Vomiting Pantoprazole Sodium 40 mg 10/30/20 07:30 11/08/20 07:55 Pantoprazole 40 Mg Tablet PO 40 mg [id number] [facility] Administration Senna 8.6 mg 11/04/20 12:36 Sennosides 8.6 Mg Tab PO BID PRN Constipation Zinc Sulfate 220 mg 10/30/20 09:00 11/08/20 07:55 Zinc Sulfate 220 Mg Cap PO 220 mg DAILY ISABELLE Administration Objective - Vital Signs Vital signs: Vital Signs Temp 98.3 F 11/08/20 13:54 Pulse 69 11/08/20 13:54 Resp 18 11/08/20 13:54 BP 120/61 11/08/20 13:54 Pulse Ox 90 L 11/08/20 13:54 Intake & Output 11/07/20 11/08/20 11/08/20 18:59 06:59 18:59 Intake Total 472 Output Total 300 Balance 172 Intake: Oral 472 Output: Urine 300 Other: Voiding Method Toilet Toilet Urinal Urinal - Exam Gen: This is a 70-year-old male awake, alert and oriented 3, well-developed, well-nourished. Sitting up in the chair. Currently on 13 L high flow nasal cannula acquiring more oxygen today HEENT: Head is atraumatic, normocephalic. Pupils equal, round. Sclerae is anicteric. NECK: Supple. No JVD. No lymphadenopathy. No thyromegaly. LUNGS: Diminished breath sounds bilaterally with a few scattered rhonchi noted. No intercostal retractions. HEART: S1, S2 are muffled ABDOMEN: Soft. Bowel sounds are present. No masses. No tenderness. EXTREMITIES: No pedal edema. No calf tenderness. NEUROLOGICAL: Patient is awake, alert and oriented x3. No focal deficits noted. Diffusely weak - Labs CBC & Chem 7: 11/07/20 05:44 11/07/20 05:44 Labs: Abnormal Lab Results - Last 24 Hours (Table) 11/07/20 11/07/20 11/08/20 Range/Units 17:10 20:25 07:22 POC Glucose (mg/dL) 346 H 414 H 270 H (75-99) mg/dL 11/08/20 Range/Units 11:49 POC Glucose (mg/dL) 279 H (75-99) mg/dL Assessment and Plan Assessment: Acute COVID-19 infection with acute bilateral interstitial pneumonia with acute hypoxic respiratory failure received Remdesivir and Jennifer Continued fever, improved Severe lymphopenia Acute renal failure with acute tubular necrosis Change in mental status acute metabolic encephalopathy, improved Tachycardia History of recent COVID-19 vaccination History of asthma history of chest pain History of CVA, TIA Diabetes mellitus type 2 history of deep vein thrombosis history of gastroesophageal reflux disease Hypertension Hyperlipidemia History of pneumonia History of sleep apnea History of cardiac arrhythmia history of hiatal hernia History of asbestosis History of appendectomy History of anxiety, depression obesity with a body mass index of 34.9 history of nicotine dependence Full code Recommendations and discussion: Recommend to continue with current medications and treatment. Multiple medical consultations including infectious disease and pulmonary Dr. Cervantes following. Patient has completed Remdesivir and received a dose of Jennifer. Patient continues to be on 13 L high flow and discussed with nursing staff about weaning as tolerated. Patient continues on dexamethasone along with vitamin and zinc supplements and will continue. Patient also continues to be on Lovenox which was increased to 30 mg twice daily for elevated d-dimer. Will repeat chest x- ray in a.m. labs. Guarded prognosis.
--- NOTE | 2020-11-08 16:33 | PN ---
PROGRESS NOTE DATE OF SERVICE: 11/08/2020 REASON FOR FOLLOWUP: Acute COVID-19 pneumonia. INTERVAL HISTORY: The patient is currently afebrile. Patient is breathing about the same. No worsening or significant improvement. Patient denies having any chest pain. Shortness of breath mostly on exertion, not so much at rest. No abdominal pain. No diarrhea. PHYSICAL EXAMINATION: Blood pressure 120/61 with a pulse of 69, temperature 98.3. He is 90% on 13 L high- flow oxygen. General description is an elderly male up in the chair in no distress. RESPIRATORY SYSTEM: Unlabored breathing, a few coarse breath sounds at the bases. No wheeze. HEART: S1, S2. Regular rate and rhythm. ABDOMEN: Soft, no tenderness. LABS: No new labs have been obtained today. DIAGNOSTIC IMPRESSION AND PLAN: Patient with acute COVID-19 pneumonia in this patient currently on dexamethasone, Lovenox, zinc, ascorbic to continue. Has completed remdesivir therapy also received Actemra and clinical condition is monitored closely. Continue with supportive care. MMODL / IJN: [id number] /
[2020-11-08 16:52] LABS: Glucose,Whole Blood 297 mg/dL (75-99)
[2020-11-08 20:15] LABS: Glucose,Whole Blood 389 mg/dL (75-99)
[2020-11-08] MEDS: INSULIN DETEMIR (LEVEMIR) 100 UNIT/ML SYR SQ SCH (21:26)
--- NOTE | 2020-11-09 07:16 | XR ---
EXAMINATION TYPE: XR chest 1V portable DATE OF EXAM: 11/09/2020 COMPARISON: 11/07/2020 HISTORY: Covid pneumonia TECHNIQUE: Single frontal view of the chest is obtained. FINDINGS: There are diffuse tiny partially consolidative airspace opacities throughout both lungs un changed since the prior study. There is no large pleural effusion. There is no pneumothorax. Heart size is normal. The osseous struc tures are intact IMPRESSION: No change in the acute cardiopulmonary disease
[2020-11-09 07:40] LABS: Glucose,Whole Blood 259 mg/dL (75-99)
[2020-11-09] MEDS: CHOLECALCIFEROL 25 MCG (1000 IU) TABLET PO SCH (07:44)
[2020-11-09] MEDS: ZINC SULFATE 220 MG CAP PO SCH (07:44)
[2020-11-09] MEDS: PANTOPRAZOLE 40 MG TABLET PO SCH (07:44)
[2020-11-09] MEDS: ASCORBIC ACID 500 MG TAB PO SCH ×2 (07:44→21:11)
[2020-11-09] MEDS: amLODIPine 10 MG TAB PO SCH (07:44)
[2020-11-09] MEDS: atenoloL 25 MG TAB PO SCH (07:44)
[2020-11-09] MEDS: INSULIN ASPART (NovoLOG) 100 UNIT/ML VIAL SQ SCH ×3 (07:45→17:23)
[2020-11-09] MEDS: DEXAMETHASONE SOD PHOSPHATE 10 MG/ML 1 ML VIAL IV SCH (07:45)
[2020-11-09] MEDS: ENOXAPARIN 30 MG/0.3 ML SYRINGE SQ SCH ×2 (07:45→21:11)
[2020-11-09] MEDS: GABAPENTIN 300 MG CAP PO SCH (07:46)
[2020-11-09] MEDS: ALBUTEROL HFA INHALER INHALATION SCH ×3 (08:17→19:20)
[2020-11-09 08:39] LABS: Basophils % (A) 0 %; Eosinophils # (A) 0.1 k/uL (0-0.7); Eosinophils % (A) 0 %; HCT 48.1 % (39.0-53.0); HGB 15.7 gm/dL (13.0-17.5); Lymphocytes # (A) 0.5 k/uL (1.0-4.8); Lymphocytes % (A) 2 %; MCH 28.7 pg (25.0-35.0); MCHC 32.6 g/dL (31.0-37.0); MCV 87.8 fL (80.0-100.0); Monocytes # (A) 0.9 k/uL (0-1.0); Monocytes % (A) 4 %; Neutrophils # (A) 22.1 k/uL (1.3-7.7); Neutrophils % (A) 93 %; Platelet Count 222 k/uL (150-450); RBC 5.48 m/uL (4.30-5.90); RDW 13.7 % (11.5-15.5); WBC 23.8 k/uL (3.8-10.6)
[2020-11-09 08:50] LABS: African American GFR (CKD) 56 (>60 ml/min/1.73 sqM); Anion Gap 11 mmol/L; Blood Urea Nitrogen 54 mg/dL (9-20); Calcium 9.7 mg/dL (8.4-10.2); Carbon Dioxide 17 mmol/L (22-30); Chloride 105 mmol/L (98-107); Glucose 404 mg/dL (74-99); Non-African American GFR(CKD) 49 (>60 ml/min/1.73 sqM); Potassium 5.4 mmol/L (3.5-5.1); Sodium 133 mmol/L (137-145)
--- NOTE | 2020-11-09 11:16 | P.PN ---
Subjective Progress Note Date: 11/09/20 Principal diagnosis: Severe sepsis due to COVID-19 pneumonia Acute COVID-19 pneumonia Acute hypoxic respiratory failure History of pulmonary fibrosis Pulmonary nodule 1.1 cm in size and right lower lobe new Hypertension hypertensive cardiovascular disease Type 2 diabetes mellitus 11/09/2020, patient seen eval examined during the rounds labs reviewed medications reviewed care plan discussed, respiratory status remains marginal however overall doing better, oxygen is 93% on 13 l, would recommend to titrate slowly down may be one 2 L over 24. Time, patient remain on usual therapy for COVID-19 pneumonia 11/08/2020, patient seen eval examined during the rounds labs reviewed medications reviewed patient is undergoing physical therapy by physical therapist, with 13 L walking in the room respiratory status is remains stable, denies any chest pain oxygen saturation remains in low 90s, hemodynamic status stable, review of the records revealed that patient had the infusion with Tocilizumab on November 03, a second dose is not an option per pharmacy guideline 11/07/2020, patient seen eval examined during the rounds labs reviewed medications reviewed, remains on 11 L high flow oxygen, undergoing PT and OT, appears more awake and alert breathing slightly better compared to yesterday oxygen saturation remains low 88-90%, remains afebrile, d-dimer elevated 11, BUN/creatinine 48-1.45 LDH is over thousand, patient has finished a course of IV REM doesn't wear remains on IV Decadron, patient will likely require some oxygen at the time of discharge given history of asbestosis lung fibrosis and on top of it now COVID-19 pneumonia 11/06/2020, patient seen eval examined during the rounds labs reviewed medications reviewed care plan discussed, respiratory status remains critical but stable however patient is on 11 L oxygen sats are 93%, obvious respiratory distress not much change, chest x-ray performed yesterday noted significant change has been noted, 11/05/2020, patient seen eval examined during the rounds labs reviewed medications reviewed care plan discussed, patient remains on 10 L oxygen saturations ranging from 88-90%, short of breath hypoxic denies any chest pain intermittent cough is present, noted that primary service has started Rocephin, chest x-ray earlier today continue show infiltrate bilaterally without any significant change 11/04/2020, patient seen eval examined during the rounds labs reviewed medications reviewed care plan discussed, still remained very hypoxic has been requiring 10 L high flow oxygen, short of breath on minimal activity and exertion, sats are 87% to 90%, patient remain on the standard therapy for COVID- 19 pneumonia, status post Actemra infusion, pro-calcitonin within normal limit, inflammatory parameters elevated with LDH of 878, C-reactive protein 3.6, d- dimer is 3.9 we will increase Lovenox to 3040 mg subcu every 12 computed tomography scan of the chest has been on hold due to elevated renal functions 11/03/2020, patient seen eval examined during the rounds labs reviewed medications reviewed care plan discussed, chest x-ray reviewed no significant change has been noted however patient is more short of breath and hypoxic, on 10 L now oxygen saturation is 90%, patient will benefit from a small dose of Lasix, will consult infectious disease as well and also evaluated for Actemra as patient appears to be slowly slipping into cytokines luna 11/02/2020, patient seen eval examined during the rounds labs reviewed medications reviewed care plan discussed Estrace status remains stable however patient requires slightly more oxygen now on 5 L nasal cannula, he still short of breath on activity and exertion dry nonproductive cough is present, remains on therapy for COVID-19 pneumonia with Chest x-ray tomorrow 11/01/2020, patient seen eval examined during the rounds labs reviewed medications reviewed, patient remains short of breath, temperature curve however slightly better, no fever has been noted today, patient is on 4 L, denies any chest pain, does get short of breath on activity and exertion intermittent dry coughing is present as well, patient is getting therapy for COVID-19 pneumonia 10/31/2020, Patient seen eval examined during the rounds labs reviewed medications reviewed, earlier morning patient developed increasing shortness of breath is spiked a fever of 102, no fever is down feeling slightly better, oxygen have been escalated to 4 L nasal cannula, hemodynamic status stable, blood cultures no growth, patient is on usual therapy for a COVID-19 pneumonia including REM doesn't wear and IV steroids along with supplements, This is a 70-year-old male well-known to me history of asthma and mild per May fibrosis also has a history of hypertension hypertensive cardiovascular disease diabetes mellitus, patient came into the hospital with progressive shortness of breath cough and exposure to COVID-19 pneumonia he turned positive, he had a second vaccination done a few days ago before tanning positive for covid, Objective - Vital Signs Vital signs: Vital Signs Temp 97.4 F L 11/09/20 10:00 Pulse 65 11/09/20 10:00 Resp 16 11/09/20 10:00 BP 149/73 11/09/20 10:00 Pulse Ox 93 L 11/09/20 10:00 Intake & Output 11/08/20 11/09/20 11/09/20 18:59 06:59 18:59 Intake Total 200 Balance 200 Intake: Oral 200 Other: Voiding Method Toilet Urinal # Bowel Movements 0 - Exam - Constitutional General appearance: average body habitus, cooperative,ill appearing and exhausted, disheveled - EENT Eyes: PERRLA ENT: hard of hearing Ears: bilateral: normal - Neck Carotids: bilateral: upstroke normal - Respiratory Respiratory: bilateral: Crackles more so on the right side compared to left side - Cardiovascular Heart sounds: normal: S1, S2 - Gastrointestinal General gastrointestinal: distended, soft - Integumentary Integumentary: decreased turgor - Neurologic Neurologic: CNII-XII intact - Musculoskeletal Musculoskeletal: gait normal, generalized weakness, strength equal bilaterally - Psychiatric Psychiatric: A&O x's 3, appropriate affect, intact judgment & insight - Labs CBC & Chem 7: 11/09/20 08:17 11/09/20 08:17 Labs: Abnormal Lab Results - Last 24 Hours (Table) 11/08/20 11/08/20 11/08/20 Range/Units 11:49 16:50 20:14 WBC (3.8-10.6) k/uL Neutrophils # (1.3-7.7) k/uL Lymphocytes # (1.0-4.8) k/uL D-Dimer (<0.60) mg/L FEU Sodium (137-145) mmol/L Potassium (3.5-5.1) mmol/L Carbon Dioxide (22-30) mmol/L BUN (9-20) mg/dL Creatinine (0.66-1.25) mg/dL Glucose (74-99) mg/dL POC Glucose (mg/dL) 279 H 297 H 389 H (75-99) mg/dL 11/09/20 11/09/20 11/09/20 Range/Units 07:26 08:17 08:17 WBC 23.8 H (3.8-10.6) k/uL Neutrophils # 22.1 H (1.3-7.7) k/uL Lymphocytes # 0.5 L (1.0-4.8) k/uL D-Dimer 9.01 H (<0.60) mg/L FEU Sodium (137-145) mmol/L Potassium (3.5-5.1) mmol/L Carbon Dioxide (22-30) mmol/L BUN (9-20) mg/dL Creatinine (0.66-1.25) mg/dL Glucose (74-99) mg/dL POC Glucose (mg/dL) 259 H (75-99) mg/dL 11/09/20 Range/Units 08:17 WBC (3.8-10.6) k/uL Neutrophils # (1.3-7.7) k/uL Lymphocytes # (1.0-4.8) k/uL D-Dimer (<0.60) mg/L FEU Sodium 133 L (137-145) mmol/L Potassium 5.4 H (3.5-5.1) mmol/L Carbon Dioxide 17 L (22-30) mmol/L BUN 54 H (9-20) mg/dL Creatinine 1.44 H (0.66-1.25) mg/dL Glucose 404 H (74-99) mg/dL POC Glucose (mg/dL) (75-99) mg/dL Microbiology - Last 24 Hours (Table) 11/08/20 20:25 Sputum Culture - Preliminary Sputum Assessment and Plan Assessment: Acute COVID-19 pneumonia severe Sepsis due to COVID-19 pneumonia Chronic kidney disease Acute hypoxic respiratory failure 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 Pulmonary nodule 1.1 cm in size and right lower lobe new Hypertension hypertensive cardiovascular disease Type 2 diabetes mellitus Plan: Reviewed chest x-ray findings noted to be stable but continue show bilateral infiltrates Status post Actemra and 5 day therapy of IV REMdesivir infusion Continue Lovenox 30 mg subcu every 12 Consult infectious disease noted and appreciated repeat labs including inflammatory parameters Antipyretics as needed Continue supplemental oxygen titrated to keep saturation 90-92% Deep breathing exercises incentive spirometry Prone positioning Decadron daily Supplements Computed tomography scan of the chest short-term as outpatient for pulmonary nodule Time with Patient: Greater than 30
[2020-11-09 11:37] LABS: Glucose,Whole Blood 399 mg/dL (75-99)
[2020-11-09 11:37] LABS: Glucose,Whole Blood 450 mg/dL (75-99)
--- NOTE | 2020-11-09 15:50 | PN ---
PROGRESS NOTE DATE OF SERVICE: 11/09/2020 REASON FOR FOLLOWUP: COVID-19 infection. INTERVAL HISTORY: The patient is currently afebrile. Patient is breathing about the same, no worsening. No significant . The patient denies any chest or worsening cough. No abdominal pain or diarrhea. PHYSICAL EXAMINATION: Blood pressure 149/73 with pulse of 55, temp is 97.4, saturating 93% on 13 L nasal cannula. GENERAL DESCRIPTION: An elderly male up in the chair in no distress. RESPIRATORY SYSTEM: Unlabored breathing, decreased intensity of breath sounds, no wheeze. HEART: S1, S2. Regular rate and rhythm. ABDOMEN: Soft, no tenderness. LABS: Hemoglobin is 15, white count 33.8, d-dimer 9.01, creatinine 1.44. DIAGNOSTIC IMPRESSION AND PLAN: 1. Patient with acute COVID-19 infection. Chest x-ray with no significant change. No worsening of his respiratory status has been noted. The patient at this time to continue with dexamethasone, Lovenox, zinc and ascorbic acid. 2. Elevated white count more likely steroid effect. Clinically no evidence of secondary bacterial pneumonia. We will recheck inflammatory markers and procalcitonin with morning labs. Monitor clinical course closely. MMODL / IJN: [id number] /
[2020-11-09 17:38] LABS: Glucose,Whole Blood 296 mg/dL (75-99)
[2020-11-09 19:07] LABS: Hemoglobin A1C 8.4 % (4.0-6.0)
[2020-11-09 20:54] LABS: Glucose,Whole Blood 313 mg/dL (75-99)
[2020-11-09] MEDS: INSULIN DETEMIR (LEVEMIR) 100 UNIT/ML SYR SQ SCH (21:11)
[2020-11-10 07:17] LABS: Glucose,Whole Blood 229 mg/dL (75-99)
[2020-11-10] MEDS: DEXAMETHASONE SOD PHOSPHATE 10 MG/ML 1 ML VIAL IV SCH (07:34)
[2020-11-10] MEDS: INSULIN ASPART (NovoLOG) 100 UNIT/ML VIAL SQ SCH ×3 (07:34→17:05)
[2020-11-10] MEDS: atenoloL 25 MG TAB PO SCH (07:35)
[2020-11-10] MEDS: ZINC SULFATE 220 MG CAP PO SCH (07:35)
[2020-11-10] MEDS: ASCORBIC ACID 500 MG TAB PO SCH ×2 (07:35→21:29)
[2020-11-10] MEDS: PANTOPRAZOLE 40 MG TABLET PO SCH (07:35)
[2020-11-10] MEDS: amLODIPine 10 MG TAB PO SCH (07:35)
[2020-11-10] MEDS: CHOLECALCIFEROL 25 MCG (1000 IU) TABLET PO SCH (07:35)
[2020-11-10] MEDS: GABAPENTIN 300 MG CAP PO SCH (07:36)
[2020-11-10] MEDS: ENOXAPARIN 30 MG/0.3 ML SYRINGE SQ SCH ×2 (07:36→21:29)
[2020-11-10] MEDS: ALBUTEROL HFA INHALER INHALATION SCH ×3 (09:02→20:49)
--- NOTE | 2020-11-10 10:12 | P.PN ---
Subjective Progress Note Date: 11/09/20 Principal diagnosis: Acute COVID-19 infection with acute bilateral interstitial pneumonia with acute hypoxic respiratory failure Acute renal failure with acute tubular necrosis Change in mental status acute metabolic encephalopathy 70-year-old male who was recently admitted with acute Covid 19 infection with acute COVID-19 bilateral pneumonia also acute hypoxic respiratory failure and is being closely monitored. Pulmonary Dr. Cervantes along with infectious disease following. Patient has completed Remdesivir and is maintained on Lovenox along with dexamethasone and vitamin and zinc supplements and will continue. Patient received a dose of Tocilizumab yesterday. Chest x-ray today shows cardiomegaly and chronic changes with persistent multifocal and confluent opacities consistent with COVID-19 infection with no significant change from previous. Initiating IV ceftriaxone. Patient continues on 10 L high flow with oxygen saturations to 87 and 91%. Patient states that his breathing and shortness of breath is about the same with no improvement and no worsening. Patient is tolerating diet with no reports of nausea or vomiting patient is getting up and walking as tolerated. Patient continues to be dyspneic with minimal exertion. Objective - Vital Signs Vital signs: Vital Signs Temp 97.4 F L 11/09/20 10:00 Pulse 65 11/09/20 10:00 Resp 16 11/09/20 10:00 BP 149/73 11/09/20 10:00 Pulse Ox 93 L 11/09/20 10:00 Intake & Output 11/08/20 11/09/20 11/09/20 18:59 06:59 18:59 Intake Total 200 Balance 200 Intake: Oral 200 Other: Voiding Method Toilet Toilet Urinal Urinal # Bowel Movements 0 - Exam Gen: This is a 70-year-old male awake, alert and oriented 3, well-developed, w ell-nourished. Sitting up in the chair. Currently on 13 L high flow nasal cannula acquiring more oxygen today HEENT: Head is atraumatic, normocephalic. Pupils equal, round. Sclerae is anicteric. NECK: Supple. No JVD. No lymphadenopathy. No thyromegaly. LUNGS: Diminished breath sounds bilaterally with a few scattered rhonchi noted. No intercostal retractions. HEART: S1, S2 are muffled ABDOMEN: Soft. Bowel sounds are present. No masses. No tenderness. EXTREMITIES: No pedal edema. No calf tenderness. NEUROLOGICAL: Patient is awake, alert and oriented x3. No focal deficits noted. Diffusely weak - Labs CBC & Chem 7: 11/09/20 08:17 11/09/20 08:17 Labs: Abnormal Lab Results - Last 24 Hours (Table) 11/08/20 11/08/20 11/09/20 Range/Units 16:50 20:14 07:26 WBC (3.8-10.6) k/uL Neutrophils # (1.3-7.7) k/uL Lymphocytes # (1.0-4.8) k/uL D-Dimer (<0.60) mg/L FEU Sodium (137-145) mmol/L Potassium (3.5-5.1) mmol/L Carbon Dioxide (22-30) mmol/L BUN (9-20) mg/dL Creatinine (0.66-1.25) mg/dL Glucose (74-99) mg/dL POC Glucose (mg/dL) 297 H 389 H 259 H (75-99) mg/dL 11/09/20 11/09/20 11/09/20 Range/Units 08:17 08:17 08:17 WBC 23.8 H (3.8-10.6) k/uL Neutrophils # 22.1 H (1.3-7.7) k/uL Lymphocytes # 0.5 L (1.0-4.8) k/uL D-Dimer 9.01 H (<0.60) mg/L FEU Sodium 133 L (137-145) mmol/L Potassium 5.4 H (3.5-5.1) mmol/L Carbon Dioxide 17 L (22-30) mmol/L BUN 54 H (9-20) mg/dL Creatinine 1.44 H (0.66-1.25) mg/dL Glucose 404 H (74-99) mg/dL POC Glucose (mg/dL) (75-99) mg/dL 11/09/20 11/09/20 Range/Units 11:34 11:35 WBC (3.8-10.6) k/uL Neutrophils # (1.3-7.7) k/uL Lymphocytes # (1.0-4.8) k/uL D-Dimer (<0.60) mg/L FEU Sodium (137-145) mmol/L Potassium (3.5-5.1) mmol/L Carbon Dioxide (22-30) mmol/L BUN (9-20) mg/dL Creatinine (0.66-1.25) mg/dL Glucose (74-99) mg/dL POC Glucose (mg/dL) 450 H 399 H (75-99) mg/dL Microbiology - Last 24 Hours (Table) 11/08/20 20:25 Sputum Culture - Preliminary Sputum Assessment and Plan Assessment: Acute COVID-19 infection with acute bilateral interstitial pneumonia with acute hypoxic respiratory failure received Remdesivir and Jennifer Continued fever, improved Severe lymphopenia Acute renal failure with acute tubular necrosis Change in mental status acute metabolic encephalopathy, improved Tachycardia History of recent COVID-19 vaccination History of asthma history of chest pain History of CVA, TIA Diabetes mellitus type 2 history of deep vein thrombosis history of gastroesophageal reflux disease Hypertension Hyperlipidemia History of pneumonia History of sleep apnea History of cardiac arrhythmia history of hiatal hernia History of asbestosis History of appendectomy History of anxiety, depression obesity with a body mass index of 34.9 history of nicotine dependence Full code Recommendations and discussion: Recommend to continue with current medications and treatment. Multiple medical consultations including infectious disease and pulmonary Dr. Cervantes following. Patient has completed Remdesivir and received a dose of Jennifer. Patient continues to be on 13 L high flow and discussed with nursing staff about weaning as tolerated. Patient continues on dexamethasone along with vitamin and zinc supplements and will continue. Patient also continues to be on Lovenox which was increased to 30 mg twice daily for elevated d-dimer. Will repeat chest x-ray in a.m. labs. Guarded prognosis.
--- NOTE | 2020-11-10 10:46 | P.PN ---
Subjective Progress Note Date: 11/10/20 Principal diagnosis: Severe sepsis due to COVID-19 pneumonia Acute COVID-19 pneumonia Acute hypoxic respiratory failure History of pulmonary fibrosis Pulmonary nodule 1.1 cm in size and right lower lobe new Hypertension hypertensive cardiovascular disease Type 2 diabetes mellitus 11/10/2020, patient seen eval examined during the rounds labs reviewed medications reviewed care plan discussed, respiratory status remains stable, denies any chest pain, patient now on 4 L oxygen, able to ambulate in the room also, continued do deep breathing exercises incentive spirometry, patient remains on the standard therapy for COVID-19 pneumonia once down to 2 L consider discharge with continuation of care as outpatient and home oxygen 11/09/2020, patient seen eval examined during the rounds labs reviewed medications reviewed care plan discussed, respiratory status remains marginal however overall doing better, oxygen is 93% on 13 l, would recommend to titrate slowly down may be one 2 L over 24. Time, patient remain on usual therapy for COVID-19 pneumonia 11/08/2020, patient seen eval examined during the rounds labs reviewed medications reviewed patient is undergoing physical therapy by physical therapist, with 13 L walking in the room respiratory status is remains stable, denies any chest pain oxygen saturation remains in low 90s, hemodynamic status stable, review of the records revealed that patient had the infusion with Tocilizumab on November 03, a second dose is not an option per pharmacy guideline 11/07/2020, patient seen eval examined during the rounds labs reviewed medications reviewed, remains on 11 L high flow oxygen, undergoing PT and OT, appears more awake and alert breathing slightly better compared to yesterday oxygen saturation remains low 88-90%, remains afebrile, d-dimer elevated 11, BUN/creatinine 48-1.45 LDH is over thousand, patient has finished a course of IV REM doesn't wear remains on IV Decadron, patient will likely require some oxygen at the time of discharge given history of asbestosis lung fibrosis and on top of it now COVID-19 pneumonia 11/06/2020, patient seen eval examined during the rounds labs reviewed medications reviewed care plan discussed, respiratory status remains critical but stable however patient is on 11 L oxygen sats are 93%, obvious respiratory distress not much change, chest x-ray performed yesterday noted significant change has been noted, 11/05/2020, patient seen eval examined during the rounds labs reviewed medications reviewed care plan discussed, patient remains on 10 L oxygen saturations ranging from 88-90%, short of breath hypoxic denies any chest pain intermittent cough is present, noted that primary service has started Rocephin, chest x-ray earlier today continue show infiltrate bilaterally without any significant change 11/04/2020, patient seen eval examined during the rounds labs reviewed medications reviewed care plan discussed, still remained very hypoxic has been requiring 10 L high flow oxygen, short of breath on minimal activity and exertion, sats are 87% to 90%, patient remain on the standard therapy for COVID- 19 pneumonia, status post Actemra infusion, pro-calcitonin within normal limit, inflammatory parameters elevated with LDH of 878, C-reactive protein 3.6, d-dime r is 3.9 we will increase Lovenox to 3040 mg subcu every 12 computed tomography scan of the chest has been on hold due to elevated renal functions 11/03/2020, patient seen eval examined during the rounds labs reviewed medications reviewed care plan discussed, chest x-ray reviewed no significant change has been noted however patient is more short of breath and hypoxic, on 10 L now oxygen saturation is 90%, patient will benefit from a small dose of Lasix, will consult infectious disease as well and also evaluated for Actemra as patient appears to be slowly slipping into cytokines luna 11/02/2020, patient seen eval examined during the rounds labs reviewed medications reviewed care plan discussed Estrace status remains stable however patient requires slightly more oxygen now on 5 L nasal cannula, he still short of breath on activity and exertion dry nonproductive cough is present, remains on therapy for COVID-19 pneumonia with Chest x-ray tomorrow 11/01/2020, patient seen eval examined during the rounds labs reviewed medications reviewed, patient remains short of breath, temperature curve however slightly better, no fever has been noted today, patient is on 4 L, denies any chest pain, does get short of breath on activity and exertion intermittent dry coughing is present as well, patient is getting therapy for COVID-19 pneumonia 10/31/2020, Patient seen eval examined during the rounds labs reviewed medications reviewed, earlier morning patient developed increasing shortness of breath is spiked a fever of 102, no fever is down feeling slightly better, oxygen have been escalated to 4 L nasal cannula, hemodynamic status stable, blood cultures no growth, patient is on usual therapy for a COVID-19 pneumonia including REM doesn't wear and IV steroids along with supplements, This is a 70-year-old male well-known to me history of asthma and mild per May fibrosis also has a history of hypertension hypertensive cardiovascular disease diabetes mellitus, patient came into the hospital with progressive shortness of breath cough and exposure to COVID-19 pneumonia he turned positive, he had a second vaccination done a few days ago before tanning positive for covid, Objective - Vital Signs Vital signs: Vital Signs Temp 98.1 F 11/10/20 09:45 Pulse 69 11/10/20 09:45 Resp 18 11/10/20 09:45 BP 130/73 11/10/20 09:45 Pulse Ox 93 L 11/10/20 09:45 Intake & Output 11/09/20 11/10/20 11/10/20 18:59 06:59 18:59 Intake Total 400 Balance 400 Intake: Oral 400 Other: Voiding Method Toilet Urinal # Voids 2 2 - Exam - Constitutional General appearance: average body habitus, cooperative,ill appearing and exhausted, disheveled - EENT Eyes: PERRLA ENT: hard of hearing Ears: bilateral: normal - Neck Carotids: bilateral: upstroke normal - Respiratory Respiratory: bilateral: Crackles more so on the right side compared to left side - Cardiovascular Heart sounds: normal: S1, S2 - Gastrointestinal General gastrointestinal: distended, soft - Integumentary Integumentary: decreased turgor - Neurologic Neurologic: CNII-XII intact - Musculoskeletal Musculoskeletal: gait normal, generalized weakness, strength equal bilaterally - Psychiatric Psychiatric: A&O x's 3, appropriate affect, intact judgment & insight - Labs CBC & Chem 7: 11/09/20 08:17 11/09/20 08:17 Labs: Abnormal Lab Results - Last 24 Hours (Table) 11/09/20 11/09/20 11/09/20 Range/Units 08:17 11:34 11:35 D-Dimer (<0.60) mg/L FEU POC Glucose (mg/dL) 450 H 399 H (75-99) mg/dL Hemoglobin A1c 8.4 H (4.0-6.0) % 11/09/20 11/09/20 11/10/20 Range/Units 17:17 20:52 06:51 D-Dimer 6.01 H (<0.60) mg/L FEU POC Glucose (mg/dL) 296 H 313 H (75-99) mg/dL Hemoglobin A1c (4.0-6.0) % 11/10/20 Range/Units 07:14 D-Dimer (<0.60) mg/L FEU POC Glucose (mg/dL) 229 H (75-99) mg/dL Hemoglobin A1c (4.0-6.0) % Microbiology - Last 24 Hours (Table) 11/08/20 20:25 Gram Stain - Preliminary Sputum Sputum Culture - Preliminary Assessment and Plan Assessment: Acute COVID-19 pneumonia severe Sepsis due to COVID-19 pneumonia Elevated d-dimer due to ongoing inflammatory process Chronic kidney disease Acute hypoxic respiratory failure 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 Pulmonary nodule 1.1 cm in size and right lower lobe new Hypertension hypertensive cardiovascular disease Type 2 diabetes mellitus Plan: Continue to titrate oxygen down as tolerated continue physical activity and ambulation in the room possible discharge on home oxygen in 1-2 days if remains stable Reviewed chest x-ray findings noted to be stable but continue show bilateral infiltrates Status post Actemra and 5 day therapy of IV REMdesivir infusion Continue Lovenox 30 mg subcu every 12 Consult infectious disease noted and appreciated Antipyretics as needed Continue supplemental oxygen titrated to keep saturation 90-92% Deep breathing exercises incentive spirometry Prone positioning Decadron daily Supplements Computed tomography/PET scan as outpatient for pulmonary nodule Time with Patient: Greater than 30
[2020-11-10 11:43] LABS: Glucose,Whole Blood 310 mg/dL (75-99)
[2020-11-10 12:18] LABS: C Reactive Protein <0.4 mg/dL (0.0-0.8); LDH 395 U/L (120-246)
[2020-11-10 16:45] LABS: Glucose,Whole Blood 343 mg/dL (75-99)
[2020-11-10 21:12] LABS: Glucose,Whole Blood 283 mg/dL (75-99)
[2020-11-10] MEDS: INSULIN DETEMIR (LEVEMIR) 100 UNIT/ML SYR SQ SCH (21:29)
--- NOTE | 2020-11-10 22:05 | P.PN ---
Subjective Progress Note Date: 11/10/20 Principal diagnosis: Acute COVID-19 infection with acute bilateral interstitial pneumonia with acute hypoxic respiratory failure Acute renal failure with acute tubular necrosis Change in mental status acute metabolic encephalopathy 70-year-old male who was recently admitted with acute Covid 19 infection with acute COVID-19 bilateral pneumonia also acute hypoxic respiratory failure and is being closely monitored. Pulmonary Dr. Cervantes along with infectious disease following. Patient has completed Remdesivir and is maintained on Lovenox along with dexamethasone and vitamin and zinc supplements and will continue. Patient received a dose of Tocilizumab yesterday. Chest x-ray today shows cardiomegaly and chronic changes with persistent multifocal and confluent opacities consistent with COVID-19 infection with no significant change from previous. Initiating IV ceftriaxone. Patient continues on 10 L high flow with oxygen saturations to 87 and 91%. Patient states that his breathing and shortness of breath is about the same with no improvement and no worsening. Patient is tolerating diet with no reports of nausea or vomiting patient is getting up and walking as tolerated. Patient continues to be dyspneic with minimal exertion. 11/10/2020 patient is seen and evaluated in room at bedside; no specific complaints; respiratory status remains stable, denies any chest pain, patient now on 4 L oxygen, able to ambulate in the room also, continue with deep breathing exercises incentive spirometry, labs reviewed medications reviewed care plan discussed, WBC is above 20; poss secondary to steroids; patient remains on the standard therapy for COVID-19 pneumonia; Pulmonary service on board; once down to 2 L consider discharge with continuation of care as outpatient and home oxygen Objective - Vital Signs Vital signs: Vital Signs Temp 98.5 F 11/10/20 05:18 Pulse 66 11/10/20 05:18 Resp 19 11/10/20 05:18 BP 121/78 11/10/20 05:18 Pulse Ox 90 L 11/10/20 05:18 Intake & Output 11/09/20 11/10/20 11/10/20 18:59 06:59 18:59 Intake Total 400 Balance 400 Intake: Oral 400 Other: Voiding Method Toilet Urinal # Voids 2 2 - Exam Gen: This is a 70-year-old male awake, alert and oriented 3, well-developed, well-nourished. Sitting up in the chair. Currently on 13 L high flow nasal cannula acquiring more oxygen today HEENT: Head is atraumatic, normocephalic. Pupils equal, round. Sclerae is anicteric. NECK: Supple. No JVD. No lymphadenopathy. No thyromegaly. LUNGS: Diminished breath sounds bilaterally with a few scattered rhonchi noted. No intercostal retractions. HEART: S1, S2 are muffled ABDOMEN: Soft. Bowel sounds are present. No masses. No tenderness. EXTREMITIES: No pedal edema. No calf tenderness. NEUROLOGICAL: Patient is awake, alert and oriented x3. No focal deficits noted. Diffusely weak - Labs CBC & Chem 7: 11/09/20 08:17 11/09/20 08:17 Labs: Abnormal Lab Results - Last 24 Hours (Table) 11/09/20 11/09/20 11/09/20 Range/Units 08:17 11:34 11:35 D-Dimer (<0.60) mg/L FEU POC Glucose (mg/dL) 450 H 399 H (75-99) mg/dL Hemoglobin A1c 8.4 H (4.0-6.0) % 11/09/20 11/09/20 11/10/20 Range/Units 17:17 20:52 06:51 D-Dimer 6.01 H (<0.60) mg/L FEU POC Glucose (mg/dL) 296 H 313 H (75-99) mg/dL Hemoglobin A1c (4.0-6.0) % 11/10/20 Range/Units 07:14 D-Dimer (<0.60) mg/L FEU POC Glucose (mg/dL) 229 H (75-99) mg/dL Hemoglobin A1c (4.0-6.0) % Microbiology - Last 24 Hours (Table) 11/08/20 20:25 Gram Stain - Preliminary Sputum Sputum Culture - Preliminary Assessment and Plan Assessment: Acute COVID-19 infection with acute bilateral interstitial pneumonia with acute hypoxic respiratory failure received Remdesivir and Jennifer Continued fever, improved Severe lymphopenia Acute renal failure with acute tubular necrosis Change in mental status acute metabolic encephalopathy, improved Tachycardia History of recent COVID-19 vaccination History of asthma history of chest pain History of CVA, TIA Diabetes mellitus type 2 history of deep vein thrombosis history of gastroesophageal reflux disease Hypertension Hyperlipidemia History of pneumonia History of sleep apnea History of cardiac arrhythmia history of hiatal hernia History of asbestosis History of appendectomy History of anxiety, depression obesity with a body mass index of 34.9 history of nicotine dependence Full code Recommendations and discussion: Recommend to continue with current medications and treatment. Multiple medical consultations including infectious disease and pulmonary Dr. Cervantes following. Patient has completed Remdesivir and received a dose of Jennifer. Patient continues to be on 13 L high flow and discussed with nursing staff about weaning as tolerated. Patient continues on dexamethasone along with vitamin and zinc suppl ements and will continue. Patient also continues to be on Lovenox which was increased to 30 mg twice daily for elevated d-dimer. Will repeat chest x-ray in a.m. labs. Guarded prognosis.
--- NOTE | 2020-11-11 04:58 | PN ---
PROGRESS NOTE DATE OF SERVICE: 11/10/2020 REASON FOR FOLLOWUP: COVID-19 pneumonia. INTERVAL HISTORY: Patient is currently afebrile. The patient is breathing more comfortably. Patient denies having any chest pain. No shortness of breath. Occasional cough. No nausea, no vomiting. No abdominal pain. No diarrhea. PHYSICAL EXAMINATION: Blood pressure 123/71 with a pulse of 83, temperature 98.1. He is 90% on 4 L nasal cannula. General description is an elderly male up in the chair in no distress. Respiratory system: Unlabored breathing with decreased intensity of breath sounds. No wheeze. HEART: S1, S2. Regular rate and rhythm. Abdomen soft, no tenderness. LABS: D-dimer is down to 6.01. LDH is 395. CRP, procalcitonin normal. Blood and sputum culture negative. DIAGNOSTIC IMPRESSION AND PLAN: Patient with acute respiratory failure secondary to COVID-19 pneumonia in this patient with no clinical suspicion for secondary bacterial pneumonia. Patient seemed to have shown overall clinical improvement, FiO2 is currently down to 4 L. Slowly wean off his oxygen. Continue with dexamethasone, Lovenox, zinc and ascorbic acid and monitor clinical course closely. MMODL / IJN: [id number] /
[2020-11-11 06:53] LABS: Glucose,Whole Blood 221 mg/dL (75-99)
[2020-11-11] MEDS: PANTOPRAZOLE 40 MG TABLET PO SCH (07:42)
[2020-11-11] MEDS: atenoloL 25 MG TAB PO SCH (07:42)
[2020-11-11] MEDS: CHOLECALCIFEROL 25 MCG (1000 IU) TABLET PO SCH (07:42)
[2020-11-11] MEDS: ENOXAPARIN 30 MG/0.3 ML SYRINGE SQ SCH (07:43)
[2020-11-11] MEDS: amLODIPine 10 MG TAB PO SCH (07:43)
[2020-11-11] MEDS: ZINC SULFATE 220 MG CAP PO SCH (07:43)
[2020-11-11] MEDS: INSULIN ASPART (NovoLOG) 100 UNIT/ML VIAL SQ SCH ×2 (07:43→12:21)
[2020-11-11] MEDS: GABAPENTIN 300 MG CAP PO SCH (07:43)
[2020-11-11] MEDS: ASCORBIC ACID 500 MG TAB PO SCH (07:43)
[2020-11-11] MEDS: DEXAMETHASONE SOD PHOSPHATE 10 MG/ML 1 ML VIAL IV SCH (07:43)
--- NOTE | 2020-11-11 07:44 | P.PN ---
Subjective Progress Note Date: 11/11/20 Principal diagnosis: Severe sepsis due to COVID-19 pneumonia Acute COVID-19 pneumonia Acute hypoxic respiratory failure History of pulmonary fibrosis Pulmonary nodule 1.1 cm in size and right lower lobe new Hypertension hypertensive cardiovascular disease Type 2 diabetes mellitus 11/11/2020, patient seen eval examined during the rounds labs reviewed medications reviewed care plan discussed, respiratory status overall stable, patient remains on 4 L oxygen, shortness of breath on activity and exertion is present, but able to ambulate in the room, intermittent cough is present but nonproductive, labs are not done today, sputum is normal respiratory rosa, in case if patient discharge will likely need home oxygen with 6 mg of Decadron for another 10 days and aspirin as antithrombotic/anticoagulant 11/10/2020, patient seen eval examined during the rounds labs reviewed medications reviewed care plan discussed, respiratory status remains stable, denies any chest pain, patient now on 4 L oxygen, able to ambulate in the room also, continued do deep breathing exercises incentive spirometry, patient remains on the standard therapy for COVID-19 pneumonia once down to 2 L consider discharge with continuation of care as outpatient and home oxygen 11/09/2020, patient seen eval examined during the rounds labs reviewed medications reviewed care plan discussed, respiratory status remains marginal however overall doing better, oxygen is 93% on 13 l, would recommend to titrate slowly down may be one 2 L over 24. Time, patient remain on usual therapy for COVID-19 pneumonia 11/08/2020, patient seen eval examined during the rounds labs reviewed medications reviewed patient is undergoing physical therapy by physical therapist, with 13 L walking in the room respiratory status is remains stable, denies any chest pain oxygen saturation remains in low 90s, hemodynamic status stable, review of the records revealed that patient had the infusion with Tocilizumab on November 03, a second dose is not an option per pharmacy guideline 11/07/2020, patient seen eval examined during the rounds labs reviewed medications reviewed, remains on 11 L high flow oxygen, undergoing PT and OT, appears more awake and alert breathing slightly better compared to yesterday oxygen saturation remains low 88-90%, remains afebrile, d-dimer elevated 11, BUN/creatinine 48-1.45 LDH is over thousand, patient has finished a course of IV REM doesn't wear remains on IV Decadron, patient will likely require some oxygen at the time of discharge given history of asbestosis lung fibrosis and on top of it now COVID-19 pneumonia 11/06/2020, patient seen eval examined during the rounds labs reviewed medications reviewed care plan discussed, respiratory status remains critical but stable however patient is on 11 L oxygen sats are 93%, obvious respiratory distress not much change, chest x-ray performed yesterday noted significant change has been noted, 11/05/2020, patient seen eval examined during the rounds labs reviewed medications reviewed care plan discussed, patient remains on 10 L oxygen saturations ranging from 88-90%, short of breath hypoxic denies any chest pain intermittent cough is present, noted that primary service has started Rocephin, chest x-ray earlier today continue show infiltrate bilaterally without any significant change 11/04/2020, patient seen eval examined during the rounds labs reviewed medications reviewed care plan discussed, still remained very hypoxic has been requiring 10 L high flow oxygen, short of breath on minimal activity and exertion, sats are 87% to 90%, patient remain on the standard therapy for COVID- 19 pneumonia, status post Actemra infusion, pro-calcitonin within normal limit, inflammatory parameters elevated with LDH of 878, C-reactive protein 3.6, d- dimer is 3.9 we will increase Lovenox to 3040 mg subcu every 12 computed tomogr aphy scan of the chest has been on hold due to elevated renal functions 11/03/2020, patient seen eval examined during the rounds labs reviewed medications reviewed care plan discussed, chest x-ray reviewed no significant change has been noted however patient is more short of breath and hypoxic, on 10 L now oxygen saturation is 90%, patient will benefit from a small dose of Lasix, will consult infectious disease as well and also evaluated for Actemra as patient appears to be slowly slipping into cytokines luna 11/02/2020, patient seen eval examined during the rounds labs reviewed medications reviewed care plan discussed Estrace status remains stable however patient requires slightly more oxygen now on 5 L nasal cannula, he still short of breath on activity and exertion dry nonproductive cough is present, remains on therapy for COVID-19 pneumonia with Chest x-ray tomorrow 11/01/2020, patient seen eval examined during the rounds labs reviewed medications reviewed, patient remains short of breath, temperature curve however slightly better, no fever has been noted today, patient is on 4 L, denies any chest pain, does get short of breath on activity and exertion intermittent dry coughing is present as well, patient is getting therapy for COVID-19 pneumonia 10/31/2020, Patient seen eval examined during the rounds labs reviewed medications reviewed, earlier morning patient developed increasing shortness of breath is spiked a fever of 102, no fever is down feeling slightly better, oxygen have been escalated to 4 L nasal cannula, hemodynamic status stable, blood cultures no growth, patient is on usual therapy for a COVID-19 pneumonia including REM doesn't wear and IV steroids along with supplements, This is a 70-year-old male well-known to me history of asthma and mild per May fibrosis also has a history of hypertension hypertensive cardiovascular disease diabetes mellitus, patient came into the hospital with progressive shortness of breath cough and exposure to COVID-19 pneumonia he turned positive, he had a second vaccination done a few days ago before tanning positive for covid, Objective - Vital Signs Vital signs: Vital Signs Temp 98.5 F 11/11/20 05:10 Pulse 79 11/11/20 05:10 Resp 16 11/11/20 05:10 BP 162/74 11/11/20 05:10 Pulse Ox 95 11/11/20 05:10 Intake & Output 11/10/20 11/11/20 11/11/20 18:59 06:59 18:59 Other: Voiding Method Toilet Urinal # Voids 4 2 - Exam - Constitutional General appearance: average body habitus, cooperative,ill appearing and exhausted, disheveled - EENT Eyes: PERRLA ENT: hard of hearing Ears: bilateral: normal - Neck Carotids: bilateral: upstroke normal - Respiratory Respiratory: bilateral: Crackles more so on the right side compared to left side - Cardiovascular Heart sounds: normal: S1, S2 - Gastrointestinal General gastrointestinal: distended, soft - Integumentary Integumentary: decreased turgor - Neurologic Neurologic: CNII-XII intact - Musculoskeletal Musculoskeletal: gait normal, generalized weakness, strength equal bilaterally - Psychiatric Psychiatric: A&O x's 3, appropriate affect, intact judgment & insight - Labs CBC & Chem 7: 11/09/20 08:17 11/09/20 08:17 Labs: Abnormal Lab Results - Last 24 Hours (Table) 11/10/20 11/10/20 11/10/20 Range/Units 06:51 06:51 11:41 D-Dimer 6.01 H (<0.60) mg/L FEU POC Glucose (mg/dL) 310 H (75-99) mg/dL Lactate Dehydrogenase 395 H (120-246) U/L 11/10/20 11/10/20 11/11/20 Range/Units 16:43 21:09 06:51 D-Dimer (<0.60) mg/L FEU POC Glucose (mg/dL) 343 H 283 H 221 H (75-99) mg/dL Lactate Dehydrogenase (120-246) U/L Microbiology - Last 24 Hours (Table) 11/08/20 20:25 Gram Stain - Preliminary Sputum Sputum Culture - Preliminary Assessment and Plan Assessment: Leukocytosis likely related to steroids Acute COVID-19 pneumonia severe Sepsis due to COVID-19 pneumonia Elevated d-dimer due to ongoing inflammatory process Chronic kidney disease Acute hypoxic respiratory failure 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 Pulmonary nodule 1.1 cm in size and right lower lobe new Hypertension hypertensive cardiovascular disease Type 2 diabetes mellitus Plan: Continue to titrate oxygen down as tolerated continue physical activity and ambulation in the room, agree with discharge planning with home oxygen assessment need post activity and exertion Reviewed chest x-ray findings noted to be stable but continue show bilateral infiltrates Status post Actemra and 5 day therapy of IV REMdesivir infusion Continue Lovenox 30 mg subcu every 12, at the time of discharge can however be switched to aspirin once daily Consult infectious disease noted and appreciated Antipyretics as needed Continue supplemental oxygen titrated to keep saturation 90-92% Deep breathing exercises incentive spirometry Prone positioning Decadron daily, at the time of discharge can be switched to 6 mg by mouth daily for another 10 days Supplements Computed tomography/PET scan as outpatient for pulmonary nodule Time with Patient: Greater than 30
[2020-11-11] MEDS: ALBUTEROL HFA INHALER INHALATION SCH ×2 (08:12→12:06)
[2020-11-11 10:06] VITALS: RESP 18
[2020-11-11 11:48] LABS: Glucose,Whole Blood 265 mg/dL (75-99)
[2020-11-11 15:38] VITALS: BP 136/74; PULSE 66; TEMP 97.6
--- NOTE | 2020-11-11 16:34 | P.DS ---
Providers Date of admission: 10/29/20 15:48 Expected date of discharge: 11/11/20 Attending physician: Sangita Toth Consults: 10/29/20 18:01 Consult Physician Routine Consulting Provider: Armen Cervantes Consult Reason/Comments: covid- remdesivir? Do you want consulting provider notified?: Yes 11/03/20 09:03 Consult Physician Routine Consulting Provider: Johanny Nguyễn Consult Reason/Comments: COVID Do you want consulting provider notified?: Yes Primary care physician: Katey Dumont Hospital Course: Final diagnosis Acute COVID-19 infection with acute bilateral interstitial pneumonia with acute hypoxic respiratory failure received Remdesivir and Jennifer Continued fever, improved Severe lymphopenia Acute renal failure with acute tubular necrosis Change in mental status acute metabolic encephalopathy, improved Tachycardia History of recent COVID-19 vaccination History of asthma history of chest pain History of CVA, TIA Diabetes mellitus type 2 history of deep vein thrombosis history of gastroesophageal reflux disease Hypertension Hyperlipidemia History of pneumonia History of sleep apnea History of cardiac arrhythmia history of hiatal hernia History of asbestosis History of appendectomy History of anxiety, depression obesity with a body mass index of 34.9 history of nicotine dependence Full code Discharge disposition Patient is being discharged in a stable condition with guarded prognosis to home. Patient will continue with home care in the outpatient setting. Patient will follow-up with Dr. Dumont in the outpatient setting upon discharge. Patient is also instructed to follow-up with pulmonary Dr. Cervantes in one week. Patient will continue dexamethasone taper to complete the course along with vitamin and zinc supplements and baby aspirin daily. Patient will require 4 L of oxygen via nasal cannula secondary to COVID-19 pneumonia upon discharge. Total time taken is greater than 35 minutes. Hospital course 70-year-old male who was recently admitted with acute Covid 19 infection with acute COVID-19 bilateral pneumonia also acute hypoxic respiratory failure and is being closely monitored. Pulmonary Dr. Cervantes along with infectious disease following. Patient has completed Remdesivir and is maintained on Lovenox along with dexamethasone and vitamin and zinc supplements and will continue. Patient received a dose of Tocilizumab yesterday. Chest x-ray today shows cardiomegaly and chronic changes with persistent multifocal and confluent opacities consistent with COVID-19 infection with no significant change from previous. Initiating IV ceftriaxone. Patient continues on 10 L high flow with oxygen saturations to 87 and 91%. Patient states that his breathing and shortness of breath is about the same with no improvement and no worsening. Patient is tolerating diet with no reports of nausea or vomiting patient is getting up and walking as tolerated. Patient continues to be dyspneic with minimal exertion. 11/10/2020 patient is seen and evaluated in room at bedside; no specific complaints; respiratory status remains stable, denies any chest pain, patient now on 4 L oxygen, able to ambulate in the room also, continue with deep breathing exercises incentive spirometry, labs reviewed medications reviewed care plan discussed, WBC is above 20; poss secondary to steroids; patient remains on the standard therapy for COVID-19 pneumonia; Pulmonary service on board; once down to 2 L consider discharge with continuation of care as outpatient and home oxygen 11/11/2020 Patient is seen and evaluated in follow-up currently maintained on 4 L and tolerating oxygen saturations above 90%. Patient would like to go home today. Patient instructed to follow-up with pulmonary Dr. Cervantes in the outpatient setting and will be continued on 4 L of oxygen with attempts at weaning FiO2 as tolerated in the outpatient setting. Continue on a dexamethasone taper and the vitamin and zinc supplements upon discharge. Prescriptions also provided for f ollow-up labs to monitor kidney functions. Patient instructed to continue with the use of incentive spirometer at least 10 times every hour while awake and encourage fluids and rest and monitor for temps and treat with Tylenol as needed. Currently no reports of chest pain, shortness of breath, or palpitations. Patient is afebrile. No reports of nausea or vomiting and patient is tolerating diet. Patient will be discharged home today. Patient will continue with home care upon discharge. Guarded prognosis. On exam vital signs are stable. Cardio S1, S2 are muffled. Respiratory system shows diminished breath sounds at the bases with some coarse rhonchi noted bilaterally. Abdomen is soft and nontender. Nervous system shows no focal deficits. Please refer to medication reconciliation sheet for a list of medications. Patient Condition at Discharge: Fair Plan - Discharge Summary Discharge Rx Participant: No New Discharge Prescriptions: New Dexamethasone 6 mg PO DAILY 10 Days #10 tablet Zinc Sulfate [Orazinc] 220 mg PO DAILY 30 Days #30 cap Pantoprazole [Protonix] 40 mg PO AC-BRKFST 30 Days #30 tablet. Acetaminophen Tab [Tylenol] 650 mg PO Q6HR PRN tab PRN Reason: Mild Pain Or Fever > 100.5 Albuterol Inhaler [Ventolin Hfa Inhaler] 2 puff INHALATION RT-TID 30 Days #1 puff Cholecalciferol [Vitamin D3 (25 Mcg = 1000 Iu)] 100 mcg PO DAILY 30 Days #120 tablet Aspirin 81 mg PO DAILY 30 Days #30 chewable amLODIPine [Norvasc] 10 mg PO DAILY 30 Days #30 tab Albuterol Inhaler [Ventolin Hfa Inhaler] 2 puff INHALATION RT-TID PRN puff PRN Reason: Shortness Of Breath Or Wheezing Ascorbic Acid [Vitamin C] 500 mg PO BID 30 Days #60 tab Continue Insulin Aspart [NovoLOG Flexpen] 10 units SQ TID-W/MEALS Gabapentin [Neurontin] 300 mg PO DAILY atenoloL [Tenormin] 25 mg PO DAILY Sildenafil Citrate 100 mg PO DAILY PRN PRN Reason: ED Changed Insulin Glargine [Lantus] 40 unit SQ HS #0 Discontinued amLODIPine BESYLATE/BENAZEPRIL [amLODIPine BESYLATE/BENAZEPRIL 5-20 mg] 2 tab PO DAILY Discharge Medication List Gabapentin [Neurontin] 300 mg PO DAILY 10/20/19 [History] Insulin Aspart [NovoLOG Flexpen] 10 units SQ TID-W/MEALS 10/20/19 [History] atenoloL [Tenormin] 25 mg PO DAILY 10/20/19 [History] Sildenafil Citrate 100 mg PO DAILY PRN 10/29/20 [History] Acetaminophen Tab [Tylenol] 650 mg PO Q6HR PRN tab 11/11/20 [Rx] Albuterol Inhaler [Ventolin Hfa Inhaler] 2 puff INHALATION RT-TID 30 Days #1 puff 11/11/20 [Rx] Albuterol Inhaler [Ventolin Hfa Inhaler] 2 puff INHALATION RT-TID PRN puff 11/11/20 [Rx] Ascorbic Acid [Vitamin C] 500 mg PO BID 30 Days #60 tab 11/11/20 [Rx] Aspirin 81 mg PO DAILY 30 Days #30 chewable 11/11/20 [Rx] Cholecalciferol [Vitamin D3 (25 Mcg = 1000 Iu)] 100 mcg PO DAILY 30 Days #120 tablet 11/11/20 [Rx] Dexamethasone 6 mg PO DAILY 10 Days #10 tablet 11/11/20 [Rx] Insulin Glargine [Lantus] 40 unit SQ HS #0 11/11/20 [Rx] Pantoprazole [Protonix] 40 mg PO AC-BRKFST 30 Days #30 tablet. 11/11/20 [Rx] Zinc Sulfate [Orazinc] 220 mg PO DAILY 30 Days #30 cap 11/11/20 [Rx] amLODIPine [Norvasc] 10 mg PO DAILY 30 Days #30 tab 11/11/20 [Rx] Follow up Appointment(s)/Referral(s): [facility], [NON-STAFF] - Armen Cervantes MD [STAFF PHYSICIAN] - 1 Week (office closed at timeof discharge. Please call to schedule appointment) Katey Dumont MD [Primary Care Provider] - 11/13/20 (office will call. This will be a tele health ) Ambulatory/Diagnostic Orders: Complete Blood Count w/diff [LAB.AMB] Time Frame: 3 Days, Location: None Selected Patient Instructions/Handouts: Coronavirus Disease 2019 (COVID-19) Activity/Diet/Wound Care/Special Instructions: Activity Limited until follow-up follow up with primary care provider upon discharge follow up with pulmonary outpatient in 2-3 weeks Repeat labs in 2-3 days Continue with 4 L of oxygen via nasal cannula secondary to COVID-19 Continue the with incentive spirometer at least 10 times every hour while awake fluids and rest Monitor for fevers and treat with Tylenol Continue to monitor your blood sugars and keep a diary for primary care follow- up Continue consistent carb heart healthy diet Continue steroids for the next 6 days until finished and taper as directed and prescribed Continue with aspirin daily Continue home care Discharge Disposition: HOME WITH HOME HEALTH SERVICES
--- NOTE | 2020-11-12 05:37 | P.PN ---
Progress Note - Text Progress Note Date: 11/11/20 REASON FOR FOLLOWUP: COVID-19 pneumonia. INTERVAL HISTORY: Patient remains to be afebrile. The patient is breathing comfortably on 3l NC, Patient denies having any chest pain. No shortness of breath. Occasional cough. No nausea, no vomiting. No abdominal pain. No diarrhea. PHYSICAL EXAMINATION: Blood pressure 120/70 with a pulse of 83, temperature 98.1. He is 94% on 3 L nasal cannula. General description is an elderly male up in the chair in no distress. Respiratory system: Unlabored breathing with decreased intensity of breath sounds. No wheeze. HEART: S1, S2. Regular rate and rhythm. Abdomen soft, no tenderness. LABS: CRP, procalcitonin normal. Blood and sputum culture negative. DIAGNOSTIC IMPRESSION AND PLAN: Patient with acute respiratory failure secondary to COVID-19 pneumonia in this patient with no clinical suspicion for secondary bacterial pneumonia. Patient seemed to have shown overall clinical improvement with plan for possible home on home O2 and short course of dexamethasone, zinc and ascorbic acid and monitor clinical course closely.
== END 2020-11-11 15:56 | disposition home health service (06) | DRG 871 ==
LOC: EC 11:01 → 4SSUR 15:48 → 1SOBS 18:40 → 4SSUR 11-02 11:33
PROVIDERS: ADMIT Hospitalist; ATTEND Hospitalist
PROC: XW033E5 Introduction of Remdesivir Anti-infective into Peripheral Vein, Percutaneous Approach, New Technology Group 5 (ICD-10-PCS; principal; 2020-10-30)
PROC: 5A0955A Assistance with Respiratory Ventilation, Greater than 96 Consecutive Hours, High Flow/Velocity Cannula (ICD-10-PCS; 2020-11-02)
PROC: XW033H5 Introduction of Tocilizumab into Peripheral Vein, Percutaneous Approach, New Technology Group 5 (ICD-10-PCS; 2020-11-03)
PROC: 05HC33Z Insertion of Infusion Device into Left Basilic Vein, Percutaneous Approach (ICD-10-PCS; 2020-11-06)
DX: A41.89 Other specified sepsis (principal); U07.1 COVID-19; N17.0 Acute kidney failure with tubular necrosis; J12.82 Pneumonia due to coronavirus disease 2019; J96.01 Acute respiratory failure with hypoxia; G93.41 Metabolic encephalopathy; J15.9 Unspecified bacterial pneumonia; A08.39 Other viral enteritis; D69.6 Thrombocytopenia, unspecified; E11.22 Type 2 diabetes mellitus with diabetic chronic kidney disease; E11.42 Type 2 diabetes mellitus with diabetic polyneuropathy; I13.10 Hypertensive heart and chronic kidney disease without heart failure, with stage 1 through stage 4 chronic kidney disease, or unspecified chronic kidney disease; D72.810 Lymphocytopenia; N18.32 Chronic kidney disease, stage 3b; J61 Pneumoconiosis due to asbestos and other mineral fibers; Z79.4 Long term (current) use of insulin; Z89.422 Acquired absence of other left toe(s); J45.909 Unspecified asthma, uncomplicated; R65.20 Severe sepsis without septic shock; D72.829 Elevated white blood cell count, unspecified; T38.0X5A Adverse effect of glucocorticoids and synthetic analogues, initial encounter; K21.9 Gastro-esophageal reflux disease without esophagitis; E78.5 Hyperlipidemia, unspecified; G47.30 Sleep apnea, unspecified; Z77.090 Contact with and (suspected) exposure to asbestos; K44.9 Diaphragmatic hernia without obstruction or gangrene; K64.9 Unspecified hemorrhoids; L80 Vitiligo; R91.1 Solitary pulmonary nodule; H91.90 Unspecified hearing loss, unspecified ear; E66.9 Obesity, unspecified; Z68.34 Body mass index [BMI] 34.0-34.9, adult; Z79.899 Other long term (current) drug therapy; Z86.73 Personal history of transient ischemic attack (TIA), and cerebral infarction without residual deficits; Z86.718 Personal history of other venous thrombosis and embolism; Z87.01 Personal history of pneumonia (recurrent); Z86.14 Personal history of Methicillin resistant Staphylococcus aureus infection; Z90.49 Acquired absence of other specified parts of digestive tract; Z90.89 Acquired absence of other organs; Z87.19 Personal history of other diseases of the digestive system; Z87.39 Personal history of other diseases of the musculoskeletal system and connective tissue; Z87.891 Personal history of nicotine dependence; Z86.59 Personal history of other mental and behavioral disorders; Z86.79 Personal history of other diseases of the circulatory system; Z86.2 Personal history of diseases of the blood and blood-forming organs and certain disorders involving the immune mechanism; Z98.890 Other specified postprocedural states; Z71.3 Dietary counseling and surveillance; Z88.1 Allergy status to other antibiotic agents; Z88.5 Allergy status to narcotic agent; Z82.3 Family history of stroke; Z82.5 Family history of asthma and other chronic lower respiratory diseases; Z80.3 Family history of malignant neoplasm of breast; Z80.52 Family history of malignant neoplasm of bladder; Z80.42 Family history of malignant neoplasm of prostate
CPT/HCPCS: 36410; 36415; 71045; 71250; 76937; 80048; 80053; 82728; 83036; 83605; 83615; 83735; 84145; 85025; 85379; 85610; 85730; 86140; 87040; 87070; 87205; 87635; 93005; 94640; 94760; 96361; 96374; 99285

== ENCOUNTER 2020-12-04 14:01 | Inpatient (IN) | payer MEDICARE ==
--- NOTE | 2020-12-04 14:23 | ED ---
SOB HPI - General Chief Complaint: Shortness of Breath Stated Complaint: ADAMA Time Seen by Provider: 12/04/20 14:01 Source: patient, EMS, RN notes reviewed Mode of arrival: EMS Limitations: no limitations - History of Present Illness Initial Comments: This is a 70-year-old male with a history of asbestosis a recent admission for COVID-19 was discharged back to 3 weeks ago on home oxygen at 3 L/m was presenting today by EMS with complaints of shortness of breath also found have a fever 101.Am he states he ordinarily does not use inhalers but get an updraft treatment in route and did help his breathing. He states his O2 sats were down in the mid to low 70s this morning. Complains or modifying factors at this time no overt chest pain, nausea vomiting or other symptomatology. MD Complaint: shortness of breath - Related Data Home Medications Medication Instructions Recorded Confirmed Gabapentin [Neurontin] 300 mg PO DAILY 10/20/19 12/04/20 Insulin Aspart [NovoLOG Flexpen] 10 units SQ AC-TID 10/20/19 12/04/20 atenoloL [Tenormin] 25 mg PO DAILY 10/20/19 12/04/20 Sildenafil Citrate 100 mg PO DAILY PRN 10/29/20 12/04/20 Insulin Glargine [Lantus] 30 unit SQ HS 12/04/20 12/04/20 Previous Rx's Medication Instructions Recorded Acetaminophen Tab [Tylenol] 650 mg PO Q6HR PRN tab 11/11/20 Albuterol Inhaler [Ventolin Hfa 2 puff INHALATION RT-TID 30 Days 11/11/20 Inhaler] #1 puff Albuterol Inhaler [Ventolin Hfa 2 puff INHALATION RT-TID PRN puff 11/11/20 Inhaler] Aspirin 81 mg PO DAILY 30 Days #30 chewable 11/11/20 Cholecalciferol [Vitamin D3 (25 100 mcg PO DAILY 30 Days #120 11/11/20 Mcg = 1000 Iu)] tablet Pantoprazole [Protonix] 40 mg PO AC-BRKFST 30 Days #30 11/11/20 tablet. Zinc Sulfate [Orazinc] 220 mg PO DAILY 30 Days #30 cap 11/11/20 amLODIPine [Norvasc] 10 mg PO DAILY 30 Days #30 tab 11/11/20 Allergies Allergy/AdvReac Type Severity Reaction Status Date / Time fentanyl AdvReac Severe Nausea & Verified 12/04/20 15:53 Vomiting hydrocodone bitartrate AdvReac Nausea & Verified 12/04/20 15:53 [From [place]] Vomiting vancomycin AdvReac Unknown Verified 12/04/20 15:53 Review of Systems ROS Statement: Those systems with pertinent positive or pertinent negative responses have been documented in the HPI. ROS Other: All systems not noted in ROS Statement are negative. Past Medical History Past Medical History: Asthma, Chest Pain / Angina, Diabetes Mellitus, Deep Vein Thrombosis (DVT), GERD/Reflux, Hypertension, Pneumonia, Sleep Apnea/CPAP/BIPAP Additional Past Medical History / Comment(s): PAST HX INCLUDES: cardiac arrhythmia, hiatal hernia, hemorrhoids, Wound left foot,peripheral neuropathy, anemia, ,generalized vitiligo.ASBESTOSIS, TENDONS REMOVED FROM E 04/30/16, no cpap use History of Any Multi-Drug Resistant Organisms: MRSA Date of last positivie culture/infection: 09/10/2015 MDRO Source:: Left Foot Past Surgical History: Adenoidectomy, Appendectomy, Orthopedic Surgery, Tonsillectomy Additional Past Surgical History / Comment(s): Amputation great toe and 3rd toe left foot, bilateral rotator cuff. TENDONS REMOVED FROM E 04/30/16 Past Anesthesia/Blood Transfusion Reactions: No Reported Reaction Past Psychological History: Anxiety, Depression Smoking Status: Former smoker Past Alcohol Use History: None Reported Past Drug Use History: None Reported - Past Family History Father Family Medical History: CVA/TIA Additional Family Medical History / Comment(s): several cva Mother Family Medical History: Asthma, COPD Sister(s) Family Medical History: Cancer Additional Family Medical History / Comment(s): Breast Cancer Brother(s) Family Medical History: Cancer Additional Family Medical History / Comment(s): Prostate and bladder Cancer General Exam - General Exam Comments Initial Comments: This is a well-developed well-nourished awake alert oriented times female Limitations: no limitations General appearance: alert, anxious Head exam: Present: atraumatic, normocephalic, normal inspection Eye exam: Present: normal appearance, PERRL, EOMI. Absent: scleral icterus, conjunctival injection, periorbital swelling ENT exam: Present: normal exam, mucous membranes moist Neck exam: Present: normal inspection. Absent: tenderness, meningismus, lymphadenopathy Respiratory exam: Present: decreased breath sounds, other (Tachypnea). Absent: respiratory distress, wheezes, rales, rhonchi, stridor Cardiovascular Exam: Present: regular rate, normal rhythm, normal heart sounds. Absent: systolic murmur, diastolic murmur, rubs, gallop, clicks GI/Abdominal exam: Present: soft, normal bowel sounds. Absent: distended, tenderness, guarding, rebound, rigid Extremities exam: Present: normal inspection, full ROM, normal capillary refill. Absent: tenderness, pedal edema, joint swelling, calf tenderness Back exam: Present: normal inspection Neurological exam: Present: alert, oriented X3, CN II-XII intact Psychiatric exam: Present: normal affect, normal mood Skin exam: Present: warm, dry, intact, normal color. Absent: rash Course Vital Signs 12/04/20 12/04/20 12/04/20 14:02 14:10 16:01 Temperature 101 F H Pulse Rate 95 85 Respiratory 21 21 18 Rate Blood Pressure 153/78 O2 Sat by Pulse 93 L 96 Oximetry Medical Decision Making - Medical Decision Making I did discuss findings with the patient as well as with Dr. Moseley. Patient be admitted for inpatient evaluation and treatment of suspected secondary bacterial infection superimposed on the viral pneumonia additionally the patient does have an elevated d-dimer scan will be ordered. - Lab Data Result diagrams: 12/04/20 14:19 12/04/20 14:19 Lab Results 12/04/20 12/04/20 12/04/20 Range/Units 14:19 14:19 14:19 WBC 10.2 (3.8-10.6) k/uL RBC 4.62 (4.30-5.90) m/uL Hgb 13.7 (13.0-17.5) gm/dL Hct 40.9 (39.0-53.0) % MCV 88.7 (80.0-100.0) fL MCH 29.6 (25.0-35.0) pg MCHC 33.4 (31.0-37.0) g/dL RDW 13.7 (11.5-15.5) % Plt Count 266 (150-450) k/uL MPV 6.7 Neutrophils % 80 % Lymphocytes % 7 % Monocytes % 7 % Eosinophils % 3 % Basophils % 0 % Neutrophils # 8.2 H (1.3-7.7) k/uL Lymphocytes # 0.8 L (1.0-4.8) k/uL Monocytes # 0.7 (0-1.0) k/uL Eosinophils # 0.3 (0-0.7) k/uL Basophils # 0.0 (0-0.2) k/uL PT 9.5 (9.0-12.0) sec INR 0.9 (<1.2) APTT 24.6 (22.0-30.0) sec D-Dimer 1.79 H (<0.60) mg/L FEU Sodium 133 L (137-145) mmol/L Potassium 5.1 (3.5-5.1) mmol/L Chloride 103 (98-107) mmol/L Carbon Dioxide 25 (22-30) mmol/L Anion Gap 5 mmol/L BUN 31 H (9-20) mg/dL Creatinine 1.38 H (0.66-1.25) mg/dL Est GFR (CKD-EPI)AfAm 60 (>60 ml/min/1.73 sqM) Est GFR (CKD-EPI)NonAf 52 (>60 ml/min/1.73 sqM) Glucose 359 H (74-99) mg/dL Plasma Lactic Acid Dave (0.7-2.0) mmol/L Calcium 8.9 (8.4-10.2) mg/dL Magnesium 1.6 (1.6-2.3) mg/dL Total Bilirubin 0.5 (0.2-1.3) mg/dL AST 30 (17-59) U/L ALT 16 (4-49) U/L Alkaline Phosphatase 94 (38-126) U/L Creatine Kinase 28 L (55-170) U/L Troponin I (0.000-0.034) ng/mL NT-Pro-B Natriuret Pep pg/mL Total Protein 5.8 L (6.3-8.2) g/dL Albumin 3.2 L (3.5-5.0) g/dL 12/04/20 12/04/20 12/04/20 Range/Units 14:19 14:19 14:19 WBC (3.8-10.6) k/uL RBC (4.30-5.90) m/uL Hgb (13.0-17.5) gm/dL Hct (39.0-53.0) % MCV (80.0-100.0) fL MCH (25.0-35.0) pg MCHC (31.0-37.0) g/dL RDW (11.5-15.5) % Plt Count (150-450) k/uL MPV Neutrophils % % Lymphocytes % % Monocytes % % Eosinophils % % Basophils % % Neutrophils # (1.3-7.7) k/uL Lymphocytes # (1.0-4.8) k/uL Monocytes # (0-1.0) k/uL Eosinophils # (0-0.7) k/uL Basophils # (0-0.2) k/uL PT (9.0-12.0) sec INR (<1.2) APTT (22.0-30.0) sec D-Dimer (<0.60) mg/L FEU Sodium (137-145) mmol/L Potassium (3.5-5.1) mmol/L Chloride (98-107) mmol/L Carbon Dioxide (22-30) mmol/L Anion Gap mmol/L BUN (9-20) mg/dL Creatinine (0.66-1.25) mg/dL Est GFR (CKD-EPI)AfAm (>60 ml/min/1.73 sqM) Est GFR (CKD-EPI)NonAf (>60 ml/min/1.73 sqM) Glucose (74-99) mg/dL Plasma Lactic Acid Dave 1.7 (0.7-2.0) mmol/L Calcium (8.4-10.2) mg/dL Magnesium (1.6-2.3) mg/dL Total Bilirubin (0.2-1.3) mg/dL AST (17-59) U/L ALT (4-49) U/L Alkaline Phosphatase (38-126) U/L Creatine Kinase (55-170) U/L Troponin I <0.012 (0.000-0.034) ng/mL NT-Pro-B Natriuret Pep 281 pg/mL Total Protein (6.3-8.2) g/dL Albumin (3.5-5.0) g/dL - EKG Data -: EKG Interpreted by [facility] EKG shows normal: sinus rhythm EKG Comments: Sinus rhythm 92. A 184 QRS 144 daily since QTC 366/452) the branch block pattern minimal criteria for LVH this is compared with an EKG dated 10/29/20 showing similar configuration. - Radiology Data Radiology results: report reviewed (Imaging reviewed as well as report no acute findings the patient does have evidence of Covid and pneumonia), image reviewed Disposition Clinical Impression: Pneumonia, Febrile illness, acute, Hypoxemia, Renal insufficiency syndrome, Bronchospasm, acute, Asbestosis Disposition: ADMITTED IP TO THIS HOSP Condition: Fair Referrals: Katey Dumont MD [Primary Care Provider] - 1-2 days
[2020-12-04 14:40] LABS: Basophils % (A) 0 %; Eosinophils # (A) 0.3 k/uL (0-0.7); Eosinophils % (A) 3 %; HCT 40.9 % (39.0-53.0); HGB 13.7 gm/dL (13.0-17.5); Lymphocytes # (A) 0.8 k/uL (1.0-4.8); Lymphocytes % (A) 7 %; MCH 29.6 pg (25.0-35.0); MCHC 33.4 g/dL (31.0-37.0); MCV 88.7 fL (80.0-100.0); Mean Platelet Volume 6.7; Monocytes # (A) 0.7 k/uL (0-1.0); Monocytes % (A) 7 %; Neutrophils # (A) 8.2 k/uL (1.3-7.7); Neutrophils % (A) 80 %; Platelet Count 266 k/uL (150-450); RBC 4.62 m/uL (4.30-5.90); RDW 13.7 % (11.5-15.5); WBC 10.2 k/uL (3.8-10.6)
[2020-12-04 14:47] LABS: Albumin 3.2 g/dL (3.5-5.0); Calcium 8.9 mg/dL (8.4-10.2); Magnesium 1.6 mg/dL (1.6-2.3); Potassium 5.1 mmol/L (3.5-5.1); Total Bilirubin 0.5 mg/dL (0.2-1.3); Total Protein 5.8 g/dL (6.3-8.2)
[2020-12-04 14:54] LABS: INR 0.9 (<1.2); Partial Thromboplastin Time 24.6 sec (22.0-30.0); Prothrombin Time 9.5 sec (9.0-12.0)
[2020-12-04 14:56] LABS: D-Dimer 1.79 mg/L FEU (<0.60)
--- NOTE | 2020-12-04 15:15 | XR ---
EXAMINATION TYPE: XR chest 2V DATE OF EXAM: 12/04/2020 COMPARISON: Chest x-ray November 09, 2020 and older studies HISTORY: Dyspnea. TECHNIQUE: Frontal and lateral views of the chest are obtained. FINDINGS: There is background chronic parenchymal changes with persistent multifocal and confluent b ilateral increased opacities. The cardiac silhouette size remains enlarged with atherosclerotic aort a. Patient remains rotated to the right. IMPRESSION: Cardiomegaly and chronic changes with persistent bilateral multifocal and confluent opac ities consistent with covid-19 infection. No significant change from most recent prior x-rays.
[2020-12-04] MEDS ORDERED: cefTRIAXone IN SWFI 1,000 MG/10 ML SYRINGE IVP STA (16:36)
[2020-12-04] MEDS ORDERED: PNEUMONIA PROTOCOL UTILIZED 1 EACH MISC PO PRN (16:41)
[2020-12-04] MEDS ORDERED: IPRATROPIUM-ALBUTEROL 3 ML NEB INHALATION PRN (16:41)
[2020-12-04] MEDS ORDERED: AZITHROMYCIN 500 MG in SODIUM CHLORIDE 0.9% 250 ML IVPB STA (16:41)
[2020-12-04] MEDS: SODIUM CHLORIDE 0.9% 1,000 ML IV SCH (16:48)
[2020-12-04] MEDS ORDERED: VANCOMYCIN IV PER PHARMACY 1 EACH MISC MISCELLANE PRN (17:18)
--- NOTE | 2020-12-04 17:53 | P.HPIM ---
History of Present Illness Patient is a pleasant 70-year-old male came in with the complaints of shortness of breath on 4 L of oxygen and oxygen saturation is going down to 78%. Patient is comparing of cough with yellowish sputum production. Patient was having high-grade fevers patient denied any dysuria patient denied nausea vomiting. Patient was discharged from the hospital after 3 week treatment for Covid 19 patient was discharged earlier this month. Patient came back positive again on 17 of this month patient did receive both Covid vaccines. Patient's creatinine at the time of discharge is around 1.3 presently around 1.3. Patient is bit hyponatremic. Patient at a chest x-ray which is showing bilateral infiltrates consistent with Covid 19, although infiltrates are mildly better compared to the previous x-rays. Review of Systems REVIEW OF SYSTEMS: CONSTITUTIONAL: As mentioned in HPI HEENT: No recent visual problems or hearing problems. Denied any sore throat. CARDIOVASCULAR: No chest pain, orthopnea, PND, no palpitations, no syncope. PULMONARY: no hemoptysis. GASTROINTESTINAL: No diarrhea, no nausea, no vomiting, no abdominal pain. NEUROLOGICAL: No headaches, no weakness, no numbness. HEMATOLOGICAL: Denies any bleeding or petechiae. GENITOURINARY: Denies any burning micturition, frequency, or urgency. MUSCULOSKELETAL/RHEUMATOLOGICAL: Denies any joint pain, swelling, or any muscle pain. ENDOCRINE: Denies any polyuria or polydipsia. The rest of the 14-point review of systems is negative. Past Medical History Past Medical History: Asthma, Chest Pain / Angina, Diabetes Mellitus, Deep Vein Thrombosis (DVT), GERD/Reflux, Hypertension, Pneumonia, Sleep Apnea/CPAP/BIPAP Additional Past Medical History / Comment(s): PAST HX INCLUDES: cardiac arrhythmia, hiatal hernia, hemorrhoids, Wound left foot,peripheral neuropathy, anemia, ,generalized vitiligo.ASBESTOSIS, TENDONS REMOVED FROM [facility] 04/30/16, no cpap use History of Any Multi-Drug Resistant Organisms: MRSA Date of last positivie culture/infection: 09/10/2015 MDRO Source:: Left Foot Past Surgical History: Adenoidectomy, Appendectomy, Orthopedic Surgery, Tonsill ectomy Additional Past Surgical History / Comment(s): Amputation great toe and 3rd toe left foot, bilateral rotator cuff. TENDONS REMOVED FROM [facility] 04/30/16 Past Anesthesia/Blood Transfusion Reactions: No Reported Reaction Past Psychological History: Anxiety, Depression Smoking Status: Former smoker Past Alcohol Use History: None Reported Past Drug Use History: None Reported - Past Family History Father Family Medical History: CVA/TIA Additional Family Medical History / Comment(s): several cva Mother Family Medical History: Asthma, COPD Sister(s) Family Medical History: Cancer Additional Family Medical History / Comment(s): Breast Cancer Brother(s) Family Medical History: Cancer Additional Family Medical History / Comment(s): Prostate and bladder Cancer Medications and Allergies Home Medications Medication Instructions Recorded Confirmed Type Gabapentin [Neurontin] 300 mg PO DAILY 10/20/19 12/04/20 History Insulin Aspart [NovoLOG Flexpen] 10 units SQ AC-TID 10/20/19 12/04/20 History atenoloL [Tenormin] 25 mg PO DAILY 10/20/19 12/04/20 History Sildenafil Citrate 100 mg PO DAILY PRN 10/29/20 12/04/20 History Acetaminophen Tab [Tylenol] 650 mg PO Q6HR PRN tab 11/11/20 12/04/20 Rx Albuterol Inhaler [Ventolin Hfa 2 puff INHALATION RT-TID 30 Days 11/11/20 12/04/20 Rx Inhaler] #1 puff Albuterol Inhaler [Ventolin Hfa 2 puff INHALATION RT-TID PRN puff 11/11/20 12/04/20 Rx Inhaler] Aspirin 81 mg PO DAILY 30 Days #30 chewable 11/11/20 12/04/20 Rx Cholecalciferol [Vitamin D3 (25 100 mcg PO DAILY 30 Days #120 11/11/20 12/04/20 Rx Mcg = 1000 Iu)] tablet Pantoprazole [Protonix] 40 mg PO AC-BRKFST 30 Days #30 11/11/20 12/04/20 Rx tablet. Zinc Sulfate [Orazinc] 220 mg PO DAILY 30 Days #30 cap 11/11/20 12/04/20 Rx amLODIPine [Norvasc] 10 mg PO DAILY 30 Days #30 tab 11/11/20 12/04/20 Rx Insulin Glargine [Lantus] 30 unit SQ HS 12/04/20 12/04/20 History Allergies Allergy/AdvReac Type Severity Reaction Status Date / Time fentanyl AdvReac Severe Nausea & Verified 12/04/20 15:53 Vomiting hydrocodone bitartrate AdvReac Nausea & Verified 12/04/20 15:53 [From [place]] Vomiting vancomycin AdvReac Unknown Verified 12/04/20 15:53 Physical Exam Vitals: Vital Signs Temp Pulse Resp BP Pulse Ox 12/04/20 16:47 87 18 94 L 12/04/20 16:01 85 18 96 12/04/20 14:10 21 12/04/20 14:02 101 F H 95 21 153/78 93 L Intake and Output 12/04/20 12/04/20 12/04/20 06:59 14:59 22:59 Other: Weight 115.666 kg PHYSICAL EXAMINATION: GENERAL: The patient is alert and oriented x3, not in any acute distress. Well developed, well nourished. HEENT: Pupils are round and equally reacting to light. EOMI. No scleral icterus. No conjunctival pallor. Normocephalic, atraumatic. No pharyngeal erythema. No thyromegaly. CARDIOVASCULAR: S1 and S2 present. No murmurs, rubs, or gallops. PULMONARY: Chest is clear to auscultation, no wheezing or crackles. ABDOMEN: Soft, nontender, nondistended, normoactive bowel sounds. No palpable organomegaly. MUSCULOSKELETAL: No joint swelling or deformity. EXTREMITIES: No cyanosis, clubbing, or pedal edema. NEUROLOGICAL: Gross neurological examination did not reveal any focal deficits. SKIN: No rashes. Results CBC & Chem 7: 12/04/20 14:19 12/04/20 14:19 Labs: Abnormal Lab Results - Last 24 Hours (Table) 12/04/20 12/04/20 12/04/20 Range/Units 14:19 14:19 14:19 Neutrophils # 8.2 H (1.3-7.7) k/uL Lymphocytes # 0.8 L (1.0-4.8) k/uL D-Dimer 1.79 H (<0.60) mg/L FEU Sodium 133 L (137-145) mmol/L BUN 31 H (9-20) mg/dL Creatinine 1.38 H (0.66-1.25) mg/dL Glucose 359 H (74-99) mg/dL Creatine Kinase 28 L (55-170) U/L Total Protein 5.8 L (6.3-8.2) g/dL Albumin 3.2 L (3.5-5.0) g/dL Assessment and Plan Plan: 1 sepsis: Patient probably has a secondary bacterial pneumonia patient was started on Rocephin and azithromycin azithromycin was discontinued, patient is ALLERGIC to vancomycin patient probably with benefit from staff for your coverage. Patient most probably has a post Covid bacterial pneumonia. Covid 19 testing was ordered again but possibility of this being Covid again is extremely low pulmonary will be consulted infectious disease will be consulted. -Hypovolemic hyponatremia: Patient was started on IV fluids which will be continued -elevated d-dimer secondary to pneumonia she doesn't have any chest pain -Acute on chronic hypoxic respiratory failure secondary to pneumonia. -History of asbestosis -Chronic kidney disease stage II to 3, his this chronic kidney disease probably secondary to acute tubular necrosis from his previous aspiration --History of DVT in the past next and haven't after diabetes mellitus -Hypertension -Sleep apnea -Diabetic peripheral neuropathy -DVT prophylaxis with subcutaneous heparin
[2020-12-04] MEDS: INSULIN ASPART (NovoLOG) 100 UNIT/ML VIAL SQ SCH (17:59)
[2020-12-04 18:03] LABS: Glucose,Whole Blood 291 mg/dL (75-99)
[2020-12-04] MEDS: SYMBICORT 160-4.5 MCG INHALER INHALATION SCH (19:19)
[2020-12-04 20:15] LABS: Glucose,Whole Blood 250 mg/dL (75-99)
[2020-12-04] MEDS: INSULIN DETEMIR (LEVEMIR) 100 UNIT/ML SYR SQ SCH (21:31)
[2020-12-04] MEDS: HEPARIN SODIUM,PORCINE/PF 5,000 UNIT/0.5 ML SYRINGE SQ SCH (21:31)
[2020-12-05] MEDS: SODIUM CHLORIDE 0.9% 1,000 ML IV SCH ×2 (00:14→12:30)
[2020-12-05 07:28] LABS: Glucose,Whole Blood 124 mg/dL (75-99)
--- NOTE | 2020-12-05 08:14 | XR ---
EXAMINATION TYPE: XR chest 1V portable DATE OF EXAM: 12/05/2020 CLINICAL HISTORY: Difficulty breathing and pneumonia progress study. TECHNIQUE: Single AP portable upright view of the chest is obtained. COMPARISON: Chest x-ray from one day earlier and older studies FINDINGS: There is background chronic parenchymal changes with persistent bilateral multifocal and c onfluent opacities. The cardiac silhouette size remains enlarged with atherosclerotic aorta. Patien t remains rotated to the right with right-sided volume loss redemonstrated. IMPRESSION: Chronic renal changes and cardiomegaly with persistent bilateral multifocal and confluen t opacities consistent with covid-19 infection. Interval progression or worsening of opacities in the lung bases from most recent x-ray noted.
[2020-12-05] MEDS: SYMBICORT 160-4.5 MCG INHALER INHALATION SCH ×2 (08:37→19:31)
[2020-12-05] MEDS: CHOLECALCIFEROL 25 MCG (1000 IU) TABLET PO SCH (08:54)
[2020-12-05] MEDS: PANTOPRAZOLE 40 MG TABLET PO SCH (08:54)
[2020-12-05] MEDS: ASPIRIN 81 MG PO SCH (08:55)
[2020-12-05] MEDS: amLODIPine 10 MG TAB PO SCH (08:55)
[2020-12-05] MEDS: HEPARIN SODIUM,PORCINE/PF 5,000 UNIT/0.5 ML SYRINGE SQ SCH ×2 (08:55→20:57)
[2020-12-05] MEDS: GABAPENTIN 300 MG CAP PO SCH (08:55)
[2020-12-05] MEDS: atenoloL 25 MG TAB PO SCH (08:55)
[2020-12-05] MEDS: ZINC SULFATE 220 MG CAP PO SCH (08:55)
[2020-12-05] MEDS: INSULIN ASPART (NovoLOG) 100 UNIT/ML VIAL SQ SCH ×3 (08:56→17:35)
[2020-12-05] MEDS ORDERED: ENOXAPARIN 40 MG/0.4 ML SYRINGE SQ SCH (09:00)
[2020-12-05 10:49] LABS: African American GFR (CKD) 65 (>60 ml/min/1.73 sqM); Anion Gap 6 mmol/L; Blood Urea Nitrogen 29 mg/dL (9-20); Carbon Dioxide 21 mmol/L (22-30); Chloride 110 mmol/L (98-107); Glucose 189 mg/dL (74-99); Non-African American GFR(CKD) 56 (>60 ml/min/1.73 sqM); Sodium 137 mmol/L (137-145)
[2020-12-05 11:58] LABS: Glucose,Whole Blood 145 mg/dL (75-99)
--- NOTE | 2020-12-05 13:27 | P.PN ---
Subjective Patient is being treated for secondary bacterial pneumonia and he was recently discharged after he was treated for Covid 19. 8. Patient is a pleasant 70-year-old male came in with the complaints of shortness of breath on 4 L of oxygen and oxygen saturation is going down to 78%. Patient is comparing of cough with yellowish sputum production. Patient was having high-grade fevers patient denied any dysuria patient denied nausea vomiting. Patient was discharged from the hospital after 3 week treatment for Covid 19 patient was discharged earlier this month. Patient came back positive again on of this month patient did receive both Covid vaccines. Patient's creatinine at the time of discharge is around 1.3 presently around 1.3. Patient is bit hyponatremic. Patient at a chest x-ray which is showing bilateral infiltrates consistent with Covid 19, although infiltrates are mildly better compared to the previous x-rays. 12/05/2020 Patient continues to have fevers is pretty status appears to have worsened a bit and patient is an 5 L of oxygen is still bit hypoxic and patient is in mild respiratory distress. Patient is being treated for secondary bacterial pneumonia. Repeat Covid 19 PCR is negative now. Patient blood sugars are well controlled. Constitutional: Denied any fatigue denied any fever. Cardio vascular: denied any chest pain, palpitations Gastrointestinal denied any nausea vomiting Pulmonary: As mentioned in the interval history Neurologic denied any new focal deficits All inpatient medications were reviewed and appropriate changes in these medications as dictated in the interval history and assessment and plan. Objective - Vital Signs Vital signs: Vital Signs Temp 100.4 F H 12/05/20 10:00 Pulse 90 12/05/20 10:00 Resp 22 12/05/20 10:00 BP 109/62 12/05/20 10:00 Pulse Ox 87 L 12/05/20 10:05 Intake & Output 12/04/20 12/05/20 12/05/20 18:59 06:59 18:59 Intake Total 1050 Balance 1050 Weight 115.666 kg Intake: Intake, IV Titration 850 Amount Sodium Chloride 0.9% 1, 800 000 ml @ 100 mls/hr IV . Q10H [facility] Rx#:[id number] cefTRIAXone 2 gm In 50 Sodium Chloride 0.9% 50 ml @ 100 mls/hr IVPB Q24HR [facility] Rx#:[id number] Oral 200 Other: Voiding Method Urinal # Voids 1 # Bowel Movements 0 - Exam PHYSICAL EXAMINATION: GENERAL: The patient is alert and oriented x3, patient is in mild acute distress. Well developed, well nourished. HEENT: Pupils are round and equally reacting to light. EOMI. No scleral icterus. No conjunctival pallor. Normocephalic, atraumatic. No pharyngeal erythema. No thyromegaly. CARDIOVASCULAR: S1 and S2 present. No murmurs, rubs, or gallops. PULMONARY: Chest is clear to auscultation, no wheezing or crackles. ABDOMEN: Soft, nontender, nondistended, normoactive bowel sounds. No palpable organomegaly. MUSCULOSKELETAL: No joint swelling or deformity. EXTREMITIES: No cyanosis, clubbing, or pedal edema. NEUROLOGICAL: Gross neurological examination did not reveal any focal deficits. SKIN: No rashes. - Labs CBC & Chem 7: 12/04/20 14:19 12/05/20 10:15 Labs: Abnormal Lab Results - Last 24 Hours (Table) 12/04/20 12/04/20 12/04/20 Range/Units 14:19 14:19 14:19 Neutrophils # 8.2 H (1.3-7.7) k/uL Lymphocytes # 0.8 L (1.0-4.8) k/uL D-Dimer 1.79 H (<0.60) mg/L FEU Sodium 133 L (137-145) mmol/L Chloride (98-107) mmol/L Carbon Dioxide (22-30) mmol/L BUN 31 H (9-20) mg/dL Creatinine 1.38 H (0.66-1.25) mg/dL Glucose 359 H (74-99) mg/dL POC Glucose (mg/dL) (75-99) mg/dL Creatine Kinase 28 L (55-170) U/L Total Protein 5.8 L (6.3-8.2) g/dL Albumin 3.2 L (3.5-5.0) g/dL 12/04/20 12/04/20 12/05/20 Range/Units 17:58 20:10 07:14 Neutrophils # (1.3-7.7) k/uL Lymphocytes # (1.0-4.8) k/uL D-Dimer (<0.60) mg/L FEU Sodium (137-145) mmol/L Chloride (98-107) mmol/L Carbon Dioxide (22-30) mmol/L BUN (9-20) mg/dL Creatinine (0.66-1.25) mg/dL Glucose (74-99) mg/dL POC Glucose (mg/dL) 291 H 250 H 124 H (75-99) mg/dL Creatine Kinase (55-170) U/L Total Protein (6.3-8.2) g/dL Albumin (3.5-5.0) g/dL 12/05/20 12/05/20 Range/Units 10:15 11:45 Neutrophils # (1.3-7.7) k/uL Lymphocytes # (1.0-4.8) k/uL D-Dimer (<0.60) mg/L FEU Sodium (137-145) mmol/L Chloride 110 H (98-107) mmol/L Carbon Dioxide 21 L (22-30) mmol/L BUN 29 H (9-20) mg/dL Creatinine 1.28 H (0.66-1.25) mg/dL Glucose 189 H (74-99) mg/dL POC Glucose (mg/dL) 145 H (75-99) mg/dL Creatine Kinase (55-170) U/L Total Protein (6.3-8.2) g/dL Albumin (3.5-5.0) g/dL Assessment and Plan Plan: 1 sepsis: Patient probably has a secondary bacterial pneumonia patient was started on Rocephin and azithromycin azithromycin was discontinued, patient is ALLERGIC to vancomycin patient probably with benefit from staph coverage. Patient most probably has a post Covid bacterial pneumonia. COVID-19 PCR is negative on this hospitalization, pulmonary and infectious disease will evaluate the patient -Hypovolemic hyponatremia: Improved with IV fluids -elevated d-dimer secondary to pneumonia she doesn't have any chest pain -Acute on chronic hypoxic respiratory failure secondary to pneumonia. -History of asbestosis -Chronic kidney disease stage II to 3, his this chronic kidney disease probably secondary to acute tubular necrosis from his previous hospitalization and Covid --History of DVT in the past next and haven't after diabetes mellitus -Hypertension -Sleep apnea -Diabetic peripheral neuropathy -DVT prophylaxis with subcutaneous heparin
--- NOTE | 2020-12-05 15:02 | P.CNPUL ---
History of Present Illness Consult date: 12/05/20 Reason for consult: dyspnea, cough, hypoxemia, pneumonia Chief complaint: Shortness of breath and fever History of present illness: This is a 70-year-old male well-known to me patient has a severe diabetes mellitus and chronic kidney disease as baseline, 2 months ago patient was admitted to hospital with acute COVID-19 pneumonia and respiratory failure patient was on 100% oxygen and BiPAP but however successfully tapered down up to 4 L nasal cannula was discharged home patient did not came back for follow-up, for the last few days has been spiking fever more short of breath oxygen in increase to 5 L nasal cannula came into the hospital for further evaluation chest x-ray not much change his code went testing is negative, patient has been vaccinated for COVID-19 his most recent chest x-ray continued to show car diomegaly chronic changes, no particular significant change from prior x-rays, patient does have a history of asbestosis lung however Review of Systems All systems: negative Past Medical History Past Medical History: Asthma, Chest Pain / Angina, Diabetes Mellitus, Deep Vein Thrombosis (DVT), GERD/Reflux, Hypertension, Pneumonia, Sleep Apnea/CPAP/BIPAP Additional Past Medical History / Comment(s): PAST HX INCLUDES: cardiac arrhythmia, hiatal hernia, hemorrhoids, Wound left foot,peripheral neuropathy, anemia, ,generalized vitiligo.ASBESTOSIS, TENDONS REMOVED FROM E 04/30/16, no cpap use History of Any Multi-Drug Resistant Organisms: MRSA Date of last positivie culture/infection: 09/10/2015 MDRO Source:: Left Foot Past Surgical History: Adenoidectomy, Appendectomy, Orthopedic Surgery, Tonsillectomy Additional Past Surgical History / Comment(s): Amputation great toe and 3rd toe left foot, bilateral rotator cuff. TENDONS REMOVED FROM E 04/30/16 Past Anesthesia/Blood Transfusion Reactions: No Reported Reaction Past Psychological History: Anxiety, Depression Smoking Status: Former smoker Past Alcohol Use History: None Reported Past Drug Use History: None Reported - Past Family History Father Family Medical History: CVA/TIA Additional Family Medical History / Comment(s): several cva Mother Family Medical History: Asthma, COPD Sister(s) Family Medical History: Cancer Additional Family Medical History / Comment(s): Breast Cancer Brother(s) Family Medical History: Cancer Additional Family Medical History / Comment(s): Prostate and bladder Cancer Medications and Allergies Home Medications Medication Instructions Recorded Confirmed Type Gabapentin [Neurontin] 300 mg PO DAILY 10/20/19 12/04/20 History Insulin Aspart [NovoLOG Flexpen] 10 units SQ AC-TID 10/20/19 12/04/20 History atenoloL [Tenormin] 25 mg PO DAILY 10/20/19 12/04/20 History Sildenafil Citrate 100 mg PO DAILY PRN 10/29/20 12/04/20 History Acetaminophen Tab [Tylenol] 650 mg PO Q6HR PRN tab 11/11/20 12/04/20 Rx Albuterol Inhaler [Ventolin Hfa 2 puff INHALATION RT-TID 30 Days 11/11/20 12/04/20 Rx Inhaler] #1 puff Albuterol Inhaler [Ventolin Hfa 2 puff INHALATION RT-TID PRN puff 11/11/20 12/04/20 Rx Inhaler] Aspirin 81 mg PO DAILY 30 Days #30 chewable 11/11/20 12/04/20 Rx Cholecalciferol [Vitamin D3 (25 100 mcg PO DAILY 30 Days #120 11/11/20 12/04/20 Rx Mcg = 1000 Iu)] tablet Pantoprazole [Protonix] 40 mg PO AC-BRKFST 30 Days #30 11/11/20 12/04/20 Rx tablet. Zinc Sulfate [Orazinc] 220 mg PO DAILY 30 Days #30 cap 11/11/20 12/04/20 Rx amLODIPine [Norvasc] 10 mg PO DAILY 30 Days #30 tab 11/11/20 12/04/20 Rx Insulin Glargine [Lantus] 30 unit SQ HS 12/04/20 12/04/20 History Allergies Allergy/AdvReac Type Severity Reaction Status Date / Time fentanyl AdvReac Severe Nausea & Verified 12/04/20 15:53 Vomiting hydrocodone bitartrate AdvReac Nausea & Verified 12/04/20 15:53 [From [place]] Vomiting vancomycin AdvReac Unknown Verified 12/04/20 15:53 Physical Exam Vitals: Vital Signs Temp Pulse Pulse Resp BP Pulse Ox 12/05/20 10:05 87 L 12/05/20 10:00 100.4 F H 90 22 109/62 86 L 05/27/21 05:23 99.7 F H 95 22 136/68 89 L 12/05/20 01:48 99.8 F H 96 23 149/72 87 L 12/04/20 21:39 99.1 F 94 20 111/67 89 L 12/04/20 19:55 99.1 F 96 18 131/67 94 L 12/04/20 19:20 20 12/04/20 18:08 99.3 F 93 19 144/78 91 L 12/04/20 16:47 87 18 94 L 12/04/20 16:01 85 18 96 Intake and Output 12/04/20 12/05/20 12/05/20 22:59 06:59 14:59 Intake Total 1050 Balance 1050 Intake: Intake, IV Titration 850 Amount Sodium Chloride 0.9% 1, 800 000 ml @ 100 mls/hr IV . Q10H IS[facility] Rx#:[id number] cefTRIAXone 2 gm In 50 Sodium Chloride 0.9% 50 ml @ 100 mls/hr IVPB Q24HR [facility] Rx#:[id number] Oral 200 Other: Voiding Method Urinal # Voids 1 # Bowel Movements 0 Weight 115.666 kg - Constitutional General appearance: average body habitus, cooperative, disheveled - EENT Eyes: PERRLA Ears: bilateral: normal - Neck Neck: normal ROM Carotids: bilateral: upstroke normal Thyroid: bilateral: normal size - Respiratory Respiratory: bilateral: diminished, rales - Cardiovascular Rhythm: regular Heart sounds: normal: S1, S2 - Gastrointestinal General gastrointestinal: soft - Integumentary Integumentary: normal turgor - Neurologic Neurologic: CNII-XII intact - Musculoskeletal Musculoskeletal: gait normal, generalized weakness, strength equal bilaterally - Psychiatric Psychiatric: A&O x's 3, appropriate affect, intact judgment & insight Results - Laboratory Findings CBC and BMP: 12/04/20 14:19 12/05/20 10:15 PT/INR, D-dimer PT 9.5 sec (9.0-12.0) 12/04/20 14:19 INR 0.9 (<1.2) 12/04/20 14:19 D-Dimer 1.79 mg/L FEU (<0.60) H 12/04/20 14:19 Abnormal lab findings: Abnormal Labs 12/04/20 12/04/20 12/04/20 14:19 14:19 14:19 Neutrophils # 8.2 H Lymphocytes # 0.8 L D-Dimer 1.79 H Sodium 133 L Chloride Carbon Dioxide BUN 31 H Creatinine 1.38 H Glucose 359 H POC Glucose (mg/dL) Creatine Kinase 28 L Total Protein 5.8 L Albumin 3.2 L 12/04/20 12/04/20 12/05/20 17:58 20:10 07:14 Neutrophils # Lymphocytes # D-Dimer Sodium Chloride Carbon Dioxide BUN Creatinine Glucose POC Glucose (mg/dL) 291 H 250 H 124 H Creatine Kinase Total Protein Albumin 12/05/20 12/05/20 10:15 11:45 Neutrophils # Lymphocytes # D-Dimer Sodium Chloride 110 H Carbon Dioxide 21 L BUN 29 H Creatinine 1.28 H Glucose 189 H POC Glucose (mg/dL) 145 H Creatine Kinase Total Protein Albumin - Diagnostic Findings Chest x-ray: report reviewed, image reviewed (Ending as noted above) Assessment and Plan Assessment: Acute on chronic hypoxic respiratory failure 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-19 pneumonia Sepsis and fever of unknown region Generalized weakness and medical debility Asbestosis lung Advanced diabetes mellitus with hyperglycemia Chronic kidney disease stage III Plan: Noguera cultures including sputum urine and blood Agree with Rocephin and Zithromax for now Consider computed tomography scan of the chest with IV contrast once kidney function normalized Continued DVT prophylaxis IV steroids Continue supplemental oxygen Deep breathing exercise incentive spirometry Time with Patient: Greater than 30
[2020-12-05] MEDS ORDERED: AZITHROMYCIN 500 MG TAB PO SCH (17:00)
[2020-12-05 17:14] LABS: Glucose,Whole Blood 74 mg/dL (75-99)
[2020-12-05] MEDS: ACETAMINOPHEN TAB 325 MG TAB PO PRN (17:42)
[2020-12-05] MEDS: ALBUTEROL HFA INHALER INHALATION PRN ×2 (17:57→19:31)
--- NOTE | 2020-12-05 18:11 | CONS ---
CONSULTATION DATE OF SERVICE: 12/05/2020 REASON FOR CONSULTATION: Pneumonia. HISTORY OF PRESENT ILLNESS: The patient is a 70-year-old male who was recently admitted to this facility and the patient was treated for COVID-19 pneumonia. Patient subsequently stabilized and was discharged home. The patient was brought back to the hospital yesterday for evaluation of increasing shortness of breath and a fever. The patient getting worse for a day before presentation to the hospital the patient did have temperature of 101 degrees Fahrenheit. The patient denies having any chest pain. The patient was noted to be hypoxic by the EMS with saturations of 70%. The patient did have a cough which is moderate in intensity with occasional sputum production and hemoptysis. No nausea, no vomiting, no abdominal pain or diarrhea. On presentation to the hospital the patient did have a fever of 101 degrees Fahrenheit with a low-grade fever of 100.4 this morning. The patient was hypoxic, requiring supplemental oxygen, currently on 5 L nasal cannula. The patient did have a normal white count, did have slight left shift and lymphopenia. D-dimer is mildly elevated. The patient did have elevated BUN and creatinine. Kidney function was normal. Sanchez PCR came back negative. The patient did have a chest x-ray showing cardiomegaly with chronic changes, persistent bilateral multi-focal and confluent opacities consistent with COVID-19 infection. The patient was started on Rocephin and Zithromax. Infectious Disease was consulted for further management of antibiotic therapy. REVIEW OF SYSTEMS: Positive points have been mentioned in the HPI. Rest of the systems are negative. PAST MEDICAL HISTORY: Recent COVID-19 infection, history of DVT, diabetes mellitus, gastroesophageal reflux disease, hypertension, pneumonia. PAST SURGICAL HISTORY: Adenoidectomy, appendectomy, tonsillectomy, amputation of the great toe and third toe. SOCIAL HISTORY: Remote history of smoking. No drinking or drug use. FAMILY HISTORY: Father with history of CVA, TIA. Mother with history of asthma and COPD. ALLERGIES: HYDROCODONE, VANCOMYCIN, FENTANYL. MEDICATIONS: The patient is currently on Tylenol, DuoNeb, Norvasc, aspirin, Tenormin, Symbicort, Rocephin 2 grams daily, Neurontin, NovoLog, Levemir, Solu-Medrol, Protonix and Zithromax. PHYSICAL EXAMINATION: VITAL SIGNS: Blood pressure 150/70 with a pulse of 83, temperature 98.4, T-max of 101. He is 90% on 5 L nasal cannula. General description is an elderly male lying in bed in no distress. No tachypnea or accessory muscle of respiration use. HEENT: Examination shows no pallor or scleral icterus. Oral mucous membrane is dry. NECK: Trachea is central. No thyromegaly. LUNGS: Unlabored breathing. Coarse breath sounds bilaterally. No wheeze. HEART: S1, S2. Regular rate and rhythm. ABDOMEN: Soft. No tenderness. No guarding or rigidity. EXTREMITIES: No edema of the feet. SKIN EXAMINATION: No rash or mass palpable. Neurologically the patient is awake, alert, oriented x3. Mood and affect normal. LABS: Hemoglobin 13.6, white count 10.2, BUN of 31, creatinine 1.38. Electrolytes are normal. Liver enzymes are normal. Sanchez PCR was negative. DIAGNOSTIC IMPRESSION AND PLAN: Patient presented to hospital with increasing shortness of breath, cough with a fever, concerning for pneumonia with recent admission to hospital for COVID-19 infection, concern for possible bacterial component, community-acquired with nosocomial pathogen. PLAN: 1. Will obtain a CRP and procalcitonin. 2. Obtain sputum for Gram stain and culture. 3. Continue with Rocephin and Zithromax. 4. Will follow his clinical condition and culture to further adjust medication if needed. Thank you for this consultation. Will follow this patient along with you. MMODL / IJN: [id number] /
[2020-12-05 20:27] LABS: Glucose,Whole Blood 144 mg/dL (75-99)
[2020-12-05] MEDS: methylPREDNISolone SOD SUCCI 40 MG/ML 1 ML VIAL IV SCH (20:57)
[2020-12-05] MEDS: INSULIN DETEMIR (LEVEMIR) 100 UNIT/ML SYR SQ SCH (20:57)
[2020-12-06 05:09] LABS: Appearance,Urine Clear (Clear); Bacteria,Urine Rare /hpf; Bilirubin,Urine Negative (Negative); Blood,Urine Negative (Negative); Color,Urine Yellow; Glucose,Urine (UA) 1+ (Negative); Hyaline Casts,Urine 17 /lpf (0-2); Ketones,Urine Negative (Negative); Leukocyte Esterase,Urine Negative (Negative); Mucus,Urine Occasional /hpf; Nitrite,Urine Negative (Negative); Protein,Urine 1+ (Negative); RBC,Urine 1 /hpf (0-5); Specific Gravity,Urine 1.017 (1.001-1.035); Squamous Epithelial Cell,Urine <1 /hpf (0-4); Urobilinogen,Urine <2.0 mg/dL (<2.0); WBC,Urine 1 /hpf (0-5)
[2020-12-06] MEDS: SODIUM CHLORIDE 0.9% 1,000 ML IV SCH ×3 (05:13→23:20)
[2020-12-06 06:55] LABS: Glucose,Whole Blood 274 mg/dL (75-99)
[2020-12-06] MEDS: ALBUTEROL HFA INHALER INHALATION PRN ×2 (08:12→11:39)
[2020-12-06] MEDS: SYMBICORT 160-4.5 MCG INHALER INHALATION SCH ×2 (08:12→19:26)
[2020-12-06] MEDS: INSULIN ASPART (NovoLOG) 100 UNIT/ML VIAL SQ SCH ×3 (08:55→17:22)
[2020-12-06] MEDS: amLODIPine 10 MG TAB PO SCH (08:55)
[2020-12-06] MEDS: ASPIRIN 81 MG PO SCH (08:55)
[2020-12-06] MEDS: PANTOPRAZOLE 40 MG TABLET PO SCH (08:55)
[2020-12-06] MEDS: CHOLECALCIFEROL 25 MCG (1000 IU) TABLET PO SCH (08:55)
[2020-12-06] MEDS: atenoloL 25 MG TAB PO SCH (08:55)
[2020-12-06] MEDS: GABAPENTIN 300 MG CAP PO SCH (08:55)
[2020-12-06] MEDS: ZINC SULFATE 220 MG CAP PO SCH (08:55)
[2020-12-06] MEDS: methylPREDNISolone SOD SUCCI 40 MG/ML 1 ML VIAL IV SCH ×2 (08:56→22:13)
[2020-12-06] MEDS: HEPARIN SODIUM,PORCINE/PF 5,000 UNIT/0.5 ML SYRINGE SQ SCH ×2 (08:56→22:13)
[2020-12-06 09:58] LABS: HCT 37.3 % (39.6-50.0); MCH 29.6 pg (27.0-32.0); MCHC 32.2 g/dL (32.0-37.0); MCV 91.9 fL (80.0-97.0); Platelet Count 242 X 10*3/uL (140-440); RBC 4.06 X 10*6/uL (4.40-5.60); RDW 13.6 % (11.5-14.5); WBC 10.59 X 10*3/uL (4.50-10.00)
--- NOTE | 2020-12-06 11:09 | P.PN ---
Subjective Progress Note Date: 12/06/20 Principal diagnosis: Acute on chronic hypoxic respiratory failure with worsening status 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-19 pneumonia Sepsis and fever of unknown region Generalized weakness and medical debility Asbestosis lung Advanced diabetes mellitus with hyperglycemia Chronic kidney disease stage III 12/06/2020, patient seen eval reexamined labs reviewed medications reviewed care plan discussed, respiratory status remains marginal denies any chest pain, how ever more hypoxic currently on 15 L high flow oxygen, remains afebrile hemodynamically stable, oxygen saturation is 93%, check urgent pro-calcitonin as well as d-dimer, if d-dimer is elevated consider doing a VQ scan and duplex ultrasound lower extremity, we will also check an echocardiogram This is a 70-year-old male well-known to me patient has a severe diabetes mellitus and chronic kidney disease as baseline, 2 months ago patient was admitted to hospital with acute COVID-19 pneumonia and respiratory failure patient was on 100% oxygen and BiPAP but however successfully tapered down up to 4 L nasal cannula was discharged home patient did not came back for follow-up, for the last few days has been spiking fever more short of breath oxygen in increase to 5 L nasal cannula came into the hospital for further evaluation chest x-ray not much change his code went testing is negative, patient has been vaccinated for COVID-19 his most recent chest x-ray continued to show cardiomegaly chronic changes, no particular significant change from prior x- rays, patient does have a history of asbestosis lung however Objective - Vital Signs Vital signs: Vital Signs Temp 98.3 F 12/06/20 10:00 Pulse 83 12/06/20 10:00 Resp 22 12/06/20 10:00 BP 122/71 12/06/20 10:00 Pulse Ox 93 L 12/06/20 10:00 Intake & Output 12/05/20 12/06/20 12/06/20 18:59 06:59 18:59 Intake Total 1250 200 Output Total 800 500 Balance 450 -500 200 Intake: Intake, IV Titration 850 Amount Sodium Chloride 0.9% 1, 800 000 ml @ 100 mls/hr IV . Q10H [facility] Rx#:[id number] cefTRIAXone 2 gm In 50 Sodium Chloride 0.9% 50 ml @ 100 mls/hr IVPB Q24HR [facility] Rx#:[id number] Oral 400 200 Output: Urine 800 500 Other: Voiding Method Urinal # Bowel Movements 1 - Exam - Constitutional General appearance: average body habitus, cooperative, disheveled - EENT Eyes: PERRLA Ears: bilateral: normal - Neck Neck: normal ROM Carotids: bilateral: upstroke normal Thyroid: bilateral: normal size - Respiratory Respiratory: bilateral: diminished, rales - Cardiovascular Rhythm: regular Heart sounds: normal: S1, S2 - Gastrointestinal General gastrointestinal: soft - Integumentary Integumentary: normal turgor - Neurologic Neurologic: CNII-XII intact - Musculoskeletal Musculoskeletal: gait normal, generalized weakness, strength equal bilaterally - Psychiatric Psychiatric: A&O x's 3, appropriate affect, intact judgment & insight - Labs CBC & Chem 7: 12/06/20 06:07 12/05/20 10:15 Labs: Abnormal Lab Results - Last 24 Hours (Table) 12/05/20 12/05/20 12/05/20 Range/Units 11:45 17:12 20:24 WBC (4.50-10.00) X 10*3/uL RBC (4.40-5.60) X 10*6/uL Hgb (13.0-17.0) g/dL Hct (39.6-50.0) % MPV (9.5-12.2) fL POC Glucose (mg/dL) 145 H 74 L 144 H (75-99) mg/dL Urine Protein (Negative) Urine Glucose (UA) (Negative) Urine Bacteria (None) /hpf Hyaline Casts (0-2) /lpf Urine Mucus (None) /hpf 12/06/20 12/06/20 12/06/20 Range/Units 04:45 06:07 06:46 WBC 10.59 H (4.50-10.00) X 10*3/uL RBC 4.06 L (4.40-5.60) X 10*6/uL Hgb 12.0 L (13.0-17.0) g/dL Hct 37.3 L (39.6-50.0) % MPV 9.0 L (9.5-12.2) fL POC Glucose (mg/dL) 274 H (75-99) mg/dL Urine Protein 1+ H (Negative) Urine Glucose (UA) 1+ H (Negative) Urine Bacteria Rare H (None) /hpf Hyaline Casts 17 H (0-2) /lpf Urine Mucus Occasional H (None) /hpf Microbiology - Last 24 Hours (Table) 12/06/20 04:15 Sputum Culture - Preliminary Sputum 12/04/20 14:19 Blood Culture - Preliminary Blood No Growth after 24 hours 12/04/20 14:19 Blood Culture - Preliminary Blood No Growth after 24 hours Assessment and Plan Assessment: Acute on chronic hypoxic respiratory failure 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-19 pneumonia Sepsis and fever of unknown region Generalized weakness and medical debility Asbestosis lung Advanced diabetes mellitus with hyperglycemia Chronic kidney disease stage III Plan: Check pro calcitonin and d-dimer, if d-dimer is elevated we'll do a VQ scan and duplex ultrasound the lower extremity Order echocardiogram to assess LV function and for pulmonary hypertension Noguera cultures including sputum urine and blood Agree with Rocephin and Zithromax for now Consider computed tomography scan of the chest with IV contrast once kidney function normalized Continued DVT prophylaxis IV steroids Continue supplemental oxygen Deep breathing exercise incentive spirometry Time with Patient: Greater than 30
[2020-12-06 12:08] LABS: Glucose,Whole Blood 379 mg/dL (75-99)
[2020-12-06 14:07] LABS: C Reactive Protein 22.6 mg/dL (0.0-0.8)
[2020-12-06 14:08] LABS: African American GFR (CKD) 53.9 (60.0-200.0); Anion Gap 12.4 mmol/L (4.00-12.00); BUN/Creat Ratio 23.33 Ratio (12.00-20.00); Calcium 8.2 mg/dL (8.7-10.3); Carbon Dioxide 19.6 mmol/L (21.6-31.8); Non-African American GFR(CKD) 46.5 (60.0-200.0); Potassium 5.1 mmol/L (3.5-5.5)
--- NOTE | 2020-12-06 17:01 | P.PN ---
Subjective Progress Note Date: 12/06/20 70-year-old male came in with the complaints of shortness of breath on 4 L of oxygen and oxygen saturation is going down to 78%. Patient is comparing of cough with yellowish sputum production. Patient was having high-grade fevers patient denied any dysuria patient denied nausea vomiting. Patient was dis charged from the hospital after 3 week treatment for Covid 19 patient was discharged earlier this month. Patient came back positive again on of this month patient did receive both Covid vaccines. Patient's creatinine at the time of discharge is around 1.3 presently around 1.3. Patient is bit hyponatremic. Patient at a chest x-ray which is showing bilateral infiltrates consistent with Covid 19, although infiltrates are mildly better compared to the previous x-rays. Objective - Vital Signs Vital signs: Vital Signs Temp 98.3 F 12/06/20 10:00 Pulse 83 12/06/20 10:00 Resp 22 12/06/20 10:00 BP 122/71 12/06/20 10:00 Pulse Ox 93 L 12/06/20 10:00 Intake & Output 12/05/20 12/06/20 12/06/20 18:59 06:59 18:59 Intake Total 1250 200 Output Total 800 500 Balance 450 -500 200 Intake: Intake, IV Titration 850 Amount Sodium Chloride 0.9% 1, 800 000 ml @ 100 mls/hr IV . Q10H [facility] Rx#:[id number] cefTRIAXone 2 gm In 50 Sodium Chloride 0.9% 50 ml @ 100 mls/hr IVPB Q24HR [facility] Rx#:[id number] Oral 400 200 Output: Urine 800 500 Other: Voiding Method Urinal # Bowel Movements 1 - Exam GENERAL: The patient is alert and oriented x3, patient is in mild acute di stress. Well developed, well nourished. HEENT: Pupils are round and equally reacting to light. EOMI. No scleral icterus. No conjunctival pallor. Normocephalic, atraumatic. No pharyngeal erythema. No thyromegaly. CARDIOVASCULAR: S1 and S2 present. No murmurs, rubs, or gallops. PULMONARY: Chest is clear to auscultation, no wheezing or crackles. ABDOMEN: Soft, nontender, nondistended, normoactive bowel sounds. No palpable organomegaly. MUSCULOSKELETAL: No joint swelling or deformity. EXTREMITIES: No cyanosis, clubbing, or pedal edema. NEUROLOGICAL: Gross neurological examination did not reveal any focal deficits. SKIN: No rashes. - Labs CBC & Chem 7: 12/06/20 06:07 12/06/20 06:07 Labs: Abnormal Lab Results - Last 24 Hours (Table) 12/05/20 12/05/20 12/06/20 Range/Units 17:12 20:24 04:45 WBC (4.50-10.00) X 10*3/uL RBC (4.40-5.60) X 10*6/uL Hgb (13.0-17.0) g/dL Hct (39.6-50.0) % MPV (9.5-12.2) fL D-Dimer (<0.60) mg/L FEU POC Glucose (mg/dL) 74 L 144 H (75-99) mg/dL Urine Protein 1+ H (Negative) Urine Glucose (UA) 1+ H (Negative) Urine Bacteria Rare H (None) /hpf Hyaline Casts 17 H (0-2) /lpf Urine Mucus Occasional H (None) /hpf 12/06/20 12/06/20 12/06/20 Range/Units 06:07 06:46 11:28 WBC 10.59 H (4.50-10.00) X 10*3/uL RBC 4.06 L (4.40-5.60) X 10*6/uL Hgb 12.0 L (13.0-17.0) g/dL Hct 37.3 L (39.6-50.0) % MPV 9.0 L (9.5-12.2) fL D-Dimer 2.97 H (<0.60) mg/L FEU POC Glucose (mg/dL) 274 H (75-99) mg/dL Urine Protein (Negative) Urine Glucose (UA) (Negative) Urine Bacteria (None) /hpf Hyaline Casts (0-2) /lpf Urine Mucus (None) /hpf 12/06/20 Range/Units 11:55 WBC (4.50-10.00) X 10*3/uL RBC (4.40-5.60) X 10*6/uL Hgb (13.0-17.0) g/dL Hct (39.6-50.0) % MPV (9.5-12.2) fL D-Dimer (<0.60) mg/L FEU POC Glucose (mg/dL) 379 H (75-99) mg/dL Urine Protein (Negative) Urine Glucose (UA) (Negative) Urine Bacteria (None) /hpf Hyaline Casts (0-2) /lpf Urine Mucus (None) /hpf Microbiology - Last 24 Hours (Table) 12/06/20 04:15 Sputum Culture - Preliminary Sputum 12/04/20 14:19 Blood Culture - Preliminary Blood No Growth after 24 hours 12/04/20 14:19 Blood Culture - Preliminary Blood No Growth after 24 hours Assessment and Plan Assessment: 1 sepsis: Patient probably has a secondary bacterial pneumonia patient was started on Rocephin and azithromycin azithromycin was discontinued, patient is ALLERGIC to vancomycin patient probably with benefit from staph coverage. Patient most probably has a post Covid bacterial pneumonia. COVID-19 PCR is negative on this hospitalization, pulmonary and infectious disease will evaluate the patient -Hypovolemic hyponatremia: Improved with IV fluids -elevated d-dimer secondary to pneumonia she doesn't have any chest pain -Acute on chronic hypoxic respiratory failure secondary to pneumonia. -History of asbestosis -Chronic kidney disease stage II to 3, his this chronic kidney disease probably secondary to acute tubular necrosis from his previous hospitalization and Covid --History of DVT in the past next and haven't after diabetes mellitus -Hypertension -Sleep apnea -Diabetic peripheral neuropathy -DVT prophylaxis with subcutaneous heparin
[2020-12-06 17:21] LABS: Glucose,Whole Blood 357 mg/dL (75-99)
--- NOTE | 2020-12-06 19:42 | PN ---
PROGRESS NOTE DATE OF SERVICE: 12/06/2020 REASON FOR FOLLOWUP: Pneumonia. INTERVAL HISTORY: The patient is afebrile. He is breathing slightly comfortably; also requiring 15 L high- flow oxygen. The patient denies having any chest pain. He did have a cough, not bringing up any sputum. No abdominal pain or diarrhea. PHYSICAL EXAMINATION: Blood pressure 126/72 with a pulse of 85, temperature 98.4. He is 94% on 15 L high- flow oxygen. General description is an elderly male up in the bed in no distress. RESPIRATORY SYSTEM: Unlabored breathing with decreased intensity of breath sounds. No wheeze. HEART: S1, S2. Regular rate and rhythm. ABDOMEN: Soft. No tenderness. EXTREMITIES: No edema of the feet. LABS: White count is 10.59. D-dimer is 2.97, BUN of 35, creatinine 1.5. Procalcitonin 0.16. DIAGNOSTIC IMPRESSION AND PLAN: Patient admitted to hospital with shortness of breath, cough with fever, concerning for pneumonia, possibly community-acquired, with fever responding to the ceftriaxone and Zithromax. With elevated D-dimer, patient may benefit from a repeat angiogram of the chest. Pulmonary is following the patient. Continue supportive care. MMODL / IJN: [id number] /
[2020-12-06 21:22] LABS: Glucose,Whole Blood 329 mg/dL (75-99)
[2020-12-06] MEDS: INSULIN DETEMIR (LEVEMIR) 100 UNIT/ML SYR SQ SCH (22:13)
[2020-12-07] MEDS: SODIUM CHLORIDE 0.9% 1,000 ML IV SCH ×2 (06:59→15:16)
[2020-12-07 07:41] LABS: Glucose,Whole Blood 262 mg/dL (75-99)
[2020-12-07] MEDS: methylPREDNISolone SOD SUCCI 40 MG/ML 1 ML VIAL IV SCH ×2 (07:50→21:57)
[2020-12-07] MEDS: amLODIPine 10 MG TAB PO SCH (07:50)
[2020-12-07] MEDS: CHOLECALCIFEROL 25 MCG (1000 IU) TABLET PO SCH (07:50)
[2020-12-07] MEDS: INSULIN ASPART (NovoLOG) 100 UNIT/ML VIAL SQ SCH ×3 (07:50→17:43)
[2020-12-07] MEDS: GABAPENTIN 300 MG CAP PO SCH (07:50)
[2020-12-07] MEDS: ZINC SULFATE 220 MG CAP PO SCH (07:51)
[2020-12-07] MEDS: ASPIRIN 81 MG PO SCH (07:51)
[2020-12-07] MEDS: HEPARIN SODIUM,PORCINE/PF 5,000 UNIT/0.5 ML SYRINGE SQ SCH ×2 (07:51→21:57)
[2020-12-07] MEDS: atenoloL 25 MG TAB PO SCH (07:51)
[2020-12-07] MEDS: PANTOPRAZOLE 40 MG TABLET PO SCH (07:51)
[2020-12-07] MEDS: ALBUTEROL HFA INHALER INHALATION PRN ×3 (08:23→19:53)
[2020-12-07] MEDS: SYMBICORT 160-4.5 MCG INHALER INHALATION SCH ×2 (08:23→19:53)
[2020-12-07 11:39] LABS: Glucose,Whole Blood 339 mg/dL (75-99)
[2020-12-07] MEDS: CEFEPIME 2 GM in SODIUM CHLORIDE 0.9% 100 ML IVPB SCH ×2 (17:09→23:05)
[2020-12-07 17:45] LABS: Glucose,Whole Blood 274 mg/dL (75-99)
--- NOTE | 2020-12-07 18:12 | PN ---
PROGRESS NOTE DATE OF SERVICE: 12/07/2020 REASON FOR FOLLOWUP: Gram-negative pneumonia. INTERVAL HISTORY: The patient is currently afebrile, has been complaining of shortness of breath requiring high-flow nasal oxygen. The patient denies any chest pain. He did have a cough and is bringing up some sputum. No hemoptysis. No vomiting. No abdominal pain or diarrhea. PHYSICAL EXAMINATION: Blood pressure 111/65 with a pulse of 79, temperature 97.7. He is 97% on 6 L high flow oxygen. General description is an elderly male lying in in no distress. Respiratory system: Unlabored breathing, coarse breath sounds bilaterally. Heart S1, S2. Regular rate and rhythm. Abdomen soft, no tenderness. LABS: Sputum showing Gram-negative. Blood culture so far negative. DIAGNOSTIC IMPRESSION AND PLAN: Patient with Gram-negative pneumonia. Antibiotic adjusted to cefazolin 2 g q.8h while waiting for the condition to stabilize and culture to finalize. Will monitor clinical course closely. MMODL / IJN: [id number] /
[2020-12-07 21:27] LABS: Glucose,Whole Blood 248 mg/dL (75-99)
[2020-12-07] MEDS: INSULIN DETEMIR (LEVEMIR) 100 UNIT/ML SYR SQ SCH (21:57)
[2020-12-07] MEDS ORDERED: MELATONIN 3 MG TABLET PO PRN (22:15)
[2020-12-08 04:25] LABS: Glucose,Whole Blood 271 mg/dL (75-99)
[2020-12-08] MEDS ORDERED: NALOXONE 0.4 MG/ML 1 ML VIAL IV PRN (04:34)
[2020-12-08 04:37] LABS: ABG Base Excess -0.8 mmol/L; ABG HCO3 26 mmol/L (21-25); ABG Oxygen Saturation 83.8 % (94-97); ABG PCO2 54 mmHg (35-45); ABG PH 7.29 (7.35-7.45); ABG TCO2 27 mmol/L (19-24); Allen Test Performed? Yes
[2020-12-08] MEDS ORDERED: SODIUM CHLORIDE 0.9% 1,000 ML IV SCH (04:45)
[2020-12-08] MEDS: LORazepam 2 MG/ML INJ IV PRN (04:46)
--- NOTE | 2020-12-08 04:49 | XR ---
EXAM: XR Chest, 1 View CLINICAL HISTORY: Resp distress TECHNIQUE: Frontal view of the chest. COMPARISON: December 05, 2020 FINDINGS: Lungs: Severe bilateral pulmonary infiltrates which have significantly worsened. Pleural space: Possible small bilateral pleural effusion. No evidence of pneumothorax. Heart: The heart appears enlarged. Mediastinum: Unremarkable. Bones/joints: No acute findings. IMPRESSION: Severe bilateral pulmonary infiltrates which have significantly worsened.
[2020-12-08 04:59] LABS: Glucose,Whole Blood 286 mg/dL (75-99)
[2020-12-08 05:02] LABS: ABG PO2 54 mmHg (83-108)
[2020-12-08 05:31] LABS: Basophils % (A) 0 %; Eosinophils % (A) 0 %; HCT 42.2 % (39.0-53.0); Lymphocytes # (A) 0.2 k/uL (1.0-4.8); Lymphocytes % (A) 1 %; MCH 29.9 pg (25.0-35.0); MCHC 33.3 g/dL (31.0-37.0); MCV 89.7 fL (80.0-100.0); Mean Platelet Volume 6.6; Monocytes # (A) 0.9 k/uL (0-1.0); Monocytes % (A) 4 %; Neutrophils # (A) 21.9 k/uL (1.3-7.7); Neutrophils % (A) 95 %; Platelet Count 389 k/uL (150-450); RDW 13.8 % (11.5-15.5)
[2020-12-08 05:48] LABS: ALT 21 U/L (4-49); AST 32 U/L (17-59); African American GFR (CKD) 60 (>60 ml/min/1.73 sqM); Albumin 3.3 g/dL (3.5-5.0); Albumin/Globulin Ratio 1.2; Alkaline Phosphatase 111 U/L (38-126); Anion Gap 5 mmol/L; Blood Urea Nitrogen 45 mg/dL (9-20); Calcium 9.6 mg/dL (8.4-10.2); Carbon Dioxide 27 mmol/L (22-30); Chloride 106 mmol/L (98-107); Creatine Kinase 37 U/L (55-170); Globulin 2.7 g/dL; Glucose 319 mg/dL (74-99); LDH 1658 U/L (313-618); Magnesium 1.9 mg/dL (1.6-2.3); Non-African American GFR(CKD) 52 (>60 ml/min/1.73 sqM); Potassium 5.5 mmol/L (3.5-5.1); Sodium 138 mmol/L (137-145); Total Bilirubin 0.3 mg/dL (0.2-1.3)
[2020-12-08] MEDS ORDERED: propofoL 100 ML IV ONE (05:57)
[2020-12-08 06:06] LABS: D-Dimer 3.97 mg/L FEU (<0.60); Prothrombin Time 10.5 sec (9.0-12.0)
[2020-12-08 06:12] LABS: C Reactive Protein 15.9 mg/dL (<1.0)
[2020-12-08 06:28] LABS: Partial Thromboplastin Time 20.8 sec (22.0-30.0)
[2020-12-08 07:07] LABS: ABG Base Excess -2.5 mmol/L; ABG HCO3 25 mmol/L (21-25); ABG Oxygen Saturation 94.8 % (94-97); ABG PCO2 58 mmHg (35-45); ABG PH 7.24 (7.35-7.45); ABG PO2 88 mmHg (83-108); ABG TCO2 27 mmol/L (19-24)
--- NOTE | 2020-12-08 07:08 | XR ---
EXAMINATION TYPE: XR chest 1V portable DATE OF EXAM: 12/08/2020 COMPARISON: Chest x-ray same dated earlier time HISTORY: Intubated TECHNIQUE: Single frontal view of the chest is obtained. FINDINGS: There is been interval placement of an endotracheal tube is overlying the tracheal air col umn. Bilateral airspace disease is again seen, heart is enlarged. No evident pneumothorax or pleural effusion. There are overlying artifacts. IMPRESSION: No evident complication status post intubation.
[2020-12-08 07:09] LABS: Allen Test Performed? no
[2020-12-08] MEDS ORDERED: SODIUM CHLORIDE 0.9% 500 ML 500 ML IV ONE (07:13)
[2020-12-08] MEDS: SODIUM CHLORIDE 0.9% 1,000 ML IV SCH ×2 (07:35→17:49)
[2020-12-08] MEDS: INSULIN ASPART (NovoLOG) 100 UNIT/ML VIAL SQ SCH ×3 (08:00→17:49)
[2020-12-08] MEDS: CEFEPIME 2 GM in SODIUM CHLORIDE 0.9% 100 ML IVPB SCH (08:01)
[2020-12-08] MEDS: methylPREDNISolone SOD SUCCI 40 MG/ML 1 ML VIAL IV SCH ×2 (08:02→20:38)
[2020-12-08] MEDS: CHLORHEXIDINE GLUCONATE 15 ML CUP MUCOUS MEM SCH ×2 (08:02→20:38)
[2020-12-08] MEDS: HEPARIN SODIUM,PORCINE/PF 5,000 UNIT/0.5 ML SYRINGE SQ SCH (08:02)
[2020-12-08] MEDS: NOREPINEPHRINE 4 MG in SODIUM CHLORIDE 0.9% 250 ML IV SCH ×3 (08:03→23:18)
--- NOTE | 2020-12-08 08:11 | P.PN ---
Subjective Progress Note Date: 12/07/20 Principal diagnosis: Gram-negative pneumonia 70-year-old male came in with the complaints of shortness of breath on 4 L of oxygen and oxygen saturation is going down to 78%. Patient is comparing of cough with yellowish sputum production. Patient was having high-grade fevers patient denied any dysuria patient denied nausea vomiting. Patient was discharged from the hospital after 3 week treatment for Covid 19 patient was discharged earlier this month. Patient came back positive again on of this month patient did receive both Covid vaccines. Patient's creatinine at the time of discharge is around 1.3 presently around 1.3. Patient is bit hyponatremic. Patient at a chest x-ray which is showing bilateral infiltrates consistent with Covid 19, although infiltrates are mildly better compared to the previous x-rays. 12/07/2020 Patient is seen and evaluated in room at bedside; continues to complain of shortness of breath which is unchanged from previous; has been titrated down to 6 L high flow nasal cannula Vital signs are reviewed and reveal a temperature of 97.7, pulse 79, respiration 16 and blood pressure 111/65 with O2 saturation at 97% on 6 L HFNC Patient remains on IV antibiotics in form of cefazolin 2 g every 8 hours; cultures are pending; ID on board and recommending to continue current antibiotics to final culture results are available; we will monitor CBC and inflammatory markers and make adjustments as needed Objective - Vital Signs Vital signs: Vital Signs Temp 98.4 F 12/07/20 10:00 Pulse 88 12/07/20 10:00 Resp 22 12/07/20 10:00 BP 160/83 12/07/20 10:00 Pulse Ox 87 L 12/07/20 10:00 Intake & Output 12/06/20 12/07/20 12/07/20 18:59 06:59 18:59 Intake Total 400 240 250 Output Total 1000 500 Balance -600 -260 250 Intake: Intake, IV Titration 240 50 Amount Sodium Chloride 0.9% 1, 240 000 ml @ 100 mls/hr IV . Q10H [facility] Rx#:[id number] cefTRIAXone 2 gm In 50 Sodium Chloride 0.9% 50 ml @ 100 mls/hr IVPB Q24HR [facility] Rx#:[id number] Oral 400 200 Output: Urine 1000 500 Other: Voiding Method Urinal Urinal # Bowel Movements 1 - Exam GENERAL: The patient is alert and oriented x3, patient is in mild acute distress. Well developed, well nourished. HEENT: Pupils are round and equally reacting to light. EOMI. No scleral icterus. No conjunctival pallor. Normocephalic, atraumatic. No pharyngeal erythema. No thyromegaly. CARDIOVASCULAR: S1 and S2 present. No murmurs, rubs, or gallops. PULMONARY: Chest is clear to auscultation, no wheezing or crackles. ABDOMEN: Soft, nontender, nondistended, normoactive bowel sounds. No palpable organomegaly. MUSCULOSKELETAL: No joint swelling or deformity. EXTREMITIES: No cyanosis, clubbing, or pedal edema. NEUROLOGICAL: Gross neurological examination did not reveal any focal deficits. SKIN: No rashes. - Labs CBC & Chem 7: 12/08/20 05:05 12/08/20 05:05 Labs: Abnormal Lab Results - Last 24 Hours (Table) 12/06/20 12/06/20 12/06/20 Range/Units 06:07 06:07 17:02 Carbon Dioxide 19.6 L (21.6-31.8) mmol/L Anion Gap 12.40 H (4.00-12.00) mmol/L BUN 35.0 H (9.0-27.0) mg/dL Est GFR (CKD-EPI)AfAm 53.9 L (60.0-200.0) Est GFR (CKD-EPI)NonAf 46.5 L (60.0-200.0) BUN/Creatinine Ratio 23.33 H (12.00-20.00) Ratio Glucose 300 H (70-110) mg/dL POC Glucose (mg/dL) 357 H (75-99) mg/dL Calcium 8.2 L (8.7-10.3) mg/dL C-Reactive Protein 22.6 H (0.0-0.8) mg/dL Procalcitonin 0.16 H (0.02-0.09) ng/mL 12/06/20 12/07/20 12/07/20 Range/Units 21:21 07:10 11:35 Carbon Dioxide (21.6-31.8) mmol/L Anion Gap (4.00-12.00) mmol/L BUN (9.0-27.0) mg/dL Est GFR (CKD-EPI)AfAm (60.0-200.0) Est GFR (CKD-EPI)NonAf (60.0-200.0) BUN/Creatinine Ratio (12.00-20.00) Ratio Glucose (70-110) mg/dL POC Glucose (mg/dL) 329 H 262 H 339 H (75-99) mg/dL Calcium (8.7-10.3) mg/dL C-Reactive Protein (0.0-0.8) mg/dL Procalcitonin (0.02-0.09) ng/mL Microbiology - Last 24 Hours (Table) 12/06/20 04:15 Gram Stain - Preliminary Sputum Sputum Culture - Preliminary Gram Neg Bacilli 12/05/20 15:23 Blood Culture - Preliminary Blood No Growth after 24 hours 12/04/20 14:19 Blood Culture - Preliminary Blood No Growth after 48 hours 12/04/20 14:19 Blood Culture - Preliminary Blood No Growth after 48 hours Assessment and Plan Assessment: 1 sepsis: Patient probably has a secondary bacterial pneumonia patient was started on Rocephin and azithromycin azithromycin was discontinued, patient is ALLERGIC to vancomycin patient probably with benefit from staph coverage. Patient most probably has a post Covid bacterial pneumonia. COVID-19 PCR is negative on this hospitalization, pulmonary and infectious disease will evaluate the patient -Hypovolemic hyponatremia: Improved with IV fluids -elevated d-dimer secondary to pneumonia she doesn't have any chest pain -Acute on chronic hypoxic respiratory failure secondary to pneumonia. -History of asbestosis -Chronic kidney disease stage II to 3, his this chronic kidney disease probably secondary to acute tubular necrosis from his previous hospitalization and Covid --History of DVT in the past next and haven't after diabetes mellitus -Hypertension -Sleep apnea -Diabetic peripheral neuropathy -DVT prophylaxis with subcutaneous heparin
[2020-12-08] MEDS: fentaNYL (PF). 1,000 MCG in SODIUM CHLORIDE 0.9% 80 ML IV SCH ×3 (08:46→22:50)
[2020-12-08] MEDS: SYMBICORT 160-4.5 MCG INHALER INHALATION SCH ×2 (09:04→20:50)
[2020-12-08] MEDS: ALBUTEROL HFA INHALER INHALATION PRN ×4 (09:04→20:50)
--- NOTE | 2020-12-08 09:04 | ECHOF ---
Referral Reason:pulmnary hypertension MEASUREMENTS -------- HEIGHT: 180.3 cm WEIGHT: 115.7 kg BP: 112/63 IVSd: 1.7 cm (0.6 - 1.1) LVIDd: 4.2 cm (3.9 - 5.3) LVPWd: 1.7 cm (0.6 - 1.1) IVSs: 2.2 cm LVIDs: 2.5 cm LVPWs: 2.4 cm Ao Diam: 4.6 cm (2.0 - 3.7) AV Cusp: 2.2 cm (1.5 - 2.6) LA Diam: 2.7 cm (2.7 - 3.8) MV EXCURSION: 13.883 mm (> 18.000) MV EF SLOPE: 46 mm/s (70 - 150) EPSS: 1.9 cm MV E Vic: 0.70 m/s MV DecT: 156 ms MV A Vic: 0.89 m/s MV E/A Ratio: 0.78 RAP: 5.00 mmHg RVSP: 47.55 mmHg FINDINGS -------- This was a technically difficult study with suboptimal views. The left ventricular size is normal. There is moderate concentric left ventricular hypertrophy. O verall left ventricular systolic function is normal with, an EF between 55 - 60 %. The RV was not well visualized. The left atrial size is normal. The right atrial size is normal. xx ml of Lumason was utilized for enhancement of images. The aortic valve is trileaflet and appears structurally normal. The mitral valve is normal. Mild mitral regurgitation is present. The tricuspid valve appears structurally normal. Mild tricuspid regurgitation present. There is m ild pulmonary hypertension. The right ventricular systolic pressure, as measured by Doppler, is 47. 55mmHg. There is no pulmonic regurgitation present. The aortic root size is normal. IVC Not well visulized. There is a small, generalized pericardial effusion present. CONCLUSIONS -------- 1. The left ventricular size is normal. 2. There is moderate concentric left ventricular hypertrophy. 3. Overall left ventricular systolic function is normal with, an EF between 55 - 60 %. 4. Mild mitral regurgitation is present. 5. Mild tricuspid regurgitation present. 6. There is mild pulmonary hypertension. 7. The right ventricular systolic pressure, as measured by Doppler, is 47.55mmHg. TOE TRIMMER: Suzy Cardenas RDCS
--- NOTE | 2020-12-08 09:44 | XR ---
EXAMINATION TYPE: XR chest 1V portable DATE OF EXAM: 12/08/2020 COMPARISON: Chest x-ray 12/08/2020, CT 10/29/2020 HISTORY: Orogastric tube placement TECHNIQUE: Single frontal view of the chest is obtained. FINDINGS: There is been interval placement of an orogastric tube, distal tip is overlying the stomac h region in the left upper quadrant linear metallic density persists at the medial aspect of the post erior pleural margin on the left as confirmed on CT, possible pleural calcification. IMPRESSION: Interval orogastric tube placement
[2020-12-08 10:09] LABS: Ferritin 631.3 ng/mL (22.0-322.0)
--- NOTE | 2020-12-08 10:33 | P.PN ---
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 Sepsis and fever of unknown region Generalized weakness and medical debility Asbestosis lung Advanced diabetes mellitus with hyperglycemia Chronic kidney disease stage III 12/08/2020, patient seen eval examined during the rounds labs reviewed medications reviewed, critical care time spent 45 minutes, patient developed progressive increased respiratory distress was transferred to the ICU was intubated for respiratory distress, patient has dense bilateral infiltrate, sputum is positive for gram-negative rods, patient is hypotensive requiring fluid boluses likely will required vasopressors as well, for agitation has been placed on propofol for now has been on 75 need to be paralyzed, patient has been also started on fentanyl drip, patient has been on Cefepime for gram-negative pneumonia, final sputum culture have been pending, patient currently on full ventilator support with 100% oxygen and 10 of PEEP, rate is 26, breathing about 28-30, volume is 500, peak pressure in low 30s, blood pressure after the boluses 100/40, respiratory rate is 32, heart rate 81 temperature sats are 91%, 1 cell count is up to 23,000 hemoglobin is stable 14, d-dimer continue to go up 3.97, arterial blood gases revealed pH of 7.24 pCO2 58-year-old O2 of 80 8/2 an hour after on above ventilator setting, potentially was 5.5, BUN/creatinine 45 1.37, patient has a elevated inflammatory parameters including ferritin in 631, LDH is 1658 C-reactive protein 15.9 patient will need a central line, we will sedate and medically paralyzed, will start tube feed, monitor labs closely, patient will be started on Lovenox 30 mg subcu every 12 12/06/2020, patient seen eval reexamined labs reviewed medications reviewed care plan discussed, respiratory status remains marginal denies any chest pain, however more hypoxic currently on 15 L high flow oxygen, remains afebrile hemodynamically stable, oxygen saturation is 93%, check urgent pro-calcitonin as well as d-dimer, if d-dimer is elevated consider doing a VQ scan and duplex ultrasound lower extremity, we will also check an echocardiogram This is a 70-year-old male well-known to me patient has a severe diabetes mellitus and chronic kidney disease as baseline, 2 months ago patient was admi tted to hospital with acute COVID-19 pneumonia and respiratory failure patient was on 100% oxygen and BiPAP but however successfully tapered down up to 4 L nasal cannula was discharged home patient did not came back for follow-up, for the last few days has been spiking fever more short of breath oxygen in increase to 5 L nasal cannula came into the hospital for further evaluation chest x-ray not much change his code went testing is negative, patient has been vaccinated for COVID-19 his most recent chest x-ray continued to show cardiomegaly chronic changes, no particular significant change from prior x-rays, patient does have a history of asbestosis lung however Objective - Vital Signs Vital signs: Vital Signs Temp 98.1 F 12/08/20 02:00 Pulse 81 12/08/20 07:00 Resp 32 H 12/08/20 07:00 BP 158/85 12/08/20 06:00 Pulse Ox 91 L 12/08/20 07:00 Intake & Output 12/07/20 12/08/20 12/08/20 18:59 06:59 18:59 Intake Total 450 110.642 254.942 Output Total 1000 1200 100 Balance -550 -1089.358 154.942 Intake: IV 100 100 Sodium Chloride 0.9% 1, 100 100 000 ml @ 100 mls/hr IV . Q10H [facility] Rx#:[id number] Intake, IV Titration 50 10.642 154.942 Amount cefTRIAXone 2 gm In 50 Sodium Chloride 0.9% 50 ml @ 100 mls/hr IVPB Q24HR [facility] Rx#:[id number] propofoL 1,000 mg In 10.642 154.942 Empty Bag 1 bag @ Titrate IV .Q0M [facility] Rx#: [id number] Oral 400 Output: Urine 1000 1200 100 Other: # Voids 1 ABP, PAP, CO, CI - Last Documented Arterial Blood Pressure 107/40 - Exam - Constitutional General appearance: sedated on full ventilator support - Neck Neck: normal ROM Carotids: bilateral: upstroke normal Thyroid: bilateral: normal size - Respiratory Respiratory: bilateral: diminished, rales - Cardiovascular Rhythm: regular Heart sounds: normal: S1, S2 - Gastrointestinal General gastrointestinal: soft - Integumentary Integumentary: normal turgor - Neurologic Neurologic: CNII-XII intact - Musculoskeletal Musculoskeletal: gait normal, generalized weakness, strength equal bilaterally - Psychiatric Psychiatric: sedated on full ventilator support - Labs CBC & Chem 7: 12/08/20 05:05 12/08/20 05:05 Labs: Abnormal Lab Results - Last 24 Hours (Table) 12/07/20 12/07/20 12/07/20 Range/Units 11:35 17:40 21:25 WBC (3.8-10.6) k/uL Neutrophils # (1.3-7.7) k/uL Lymphocytes # (1.0-4.8) k/uL APTT (22.0-30.0) sec Fibrinogen (200-500) mg/dL D-Dimer (<0.60) mg/L FEU ABG pH (7.35-7.45) ABG pCO2 (35-45) mmHg ABG pO2 (83-108) mmHg ABG HCO3 (21-25) mmol/L ABG Total CO2 (19-24) mmol/L ABG O2 Saturation (94-97) % Potassium (3.5-5.1) mmol/L BUN (9-20) mg/dL Creatinine (0.66-1.25) mg/dL Glucose (74-99) mg/dL POC Glucose (mg/dL) 339 H 274 H 248 H (75-99) mg/dL Ferritin (22.0-322.0) ng/mL Lactate Dehydrogenase (313-618) U/L Creatine Kinase (55-170) U/L C-Reactive Protein (<1.0) mg/dL Total Protein (6.3-8.2) g/dL Albumin (3.5-5.0) g/dL 12/08/20 12/08/20 12/08/20 Range/Units 04:24 04:34 04:58 WBC (3.8-10.6) k/uL Neutrophils # (1.3-7.7) k/uL Lymphocytes # (1.0-4.8) k/uL APTT (22.0-30.0) sec Fibrinogen (200-500) mg/dL D-Dimer (<0.60) mg/L FEU ABG pH 7.29 L (7.35-7.45) ABG pCO2 54 H (35-45) mmHg ABG pO2 54 L* (83-108) mmHg ABG HCO3 26 H (21-25) mmol/L ABG Total CO2 27 H (19-24) mmol/L ABG O2 Saturation 83.8 L (94-97) % Potassium (3.5-5.1) mmol/L BUN (9-20) mg/dL Creatinine (0.66-1.25) mg/dL Glucose (74-99) mg/dL POC Glucose (mg/dL) 271 H 286 H (75-99) mg/dL Ferritin (22.0-322.0) ng/mL Lactate Dehydrogenase (313-618) U/L Creatine Kinase (55-170) U/L C-Reactive Protein (<1.0) mg/dL Total Protein (6.3-8.2) g/dL Albumin (3.5-5.0) g/dL 12/08/20 12/08/20 12/08/20 Range/Units 05:05 05:05 05:05 WBC 23.0 H (3.8-10.6) k/uL Neutrophils # 21.9 H (1.3-7.7) k/uL Lymphocytes # 0.2 L (1.0-4.8) k/uL APTT 20.8 L (22.0-30.0) sec Fibrinogen 616 H (200-500) mg/dL D-Dimer 3.97 H (<0.60) mg/L FEU ABG pH (7.35-7.45) ABG pCO2 (35-45) mmHg ABG pO2 (83-108) mmHg ABG HCO3 (21-25) mmol/L ABG Total CO2 (19-24) mmol/L ABG O2 Saturation (94-97) % Potassium 5.5 H (3.5-5.1) mmol/L BUN 45 H (9-20) mg/dL Creatinine 1.37 H (0.66-1.25) mg/dL Glucose 319 H (74-99) mg/dL POC Glucose (mg/dL) (75-99) mg/dL Ferritin 631.3 H (22.0-322.0) ng/mL Lactate Dehydrogenase 1658 H (313-618) U/L Creatine Kinase 37 L (55-170) U/L C-Reactive Protein 15.9 H (<1.0) mg/dL Total Protein 6.0 L (6.3-8.2) g/dL Albumin 3.3 L (3.5-5.0) g/dL 12/08/20 Range/Units 07:04 WBC (3.8-10.6) k/uL Neutrophils # (1.3-7.7) k/uL Lymphocytes # (1.0-4.8) k/uL APTT (22.0-30.0) sec Fibrinogen (200-500) mg/dL D-Dimer (<0.60) mg/L FEU ABG pH 7.24 L (7.35-7.45) ABG pCO2 58 H (35-45) mmHg ABG pO2 (83-108) mmHg ABG HCO3 (21-25) mmol/L ABG Total CO2 27 H (19-24) mmol/L ABG O2 Saturation (94-97) % Potassium (3.5-5.1) mmol/L BUN (9-20) mg/dL Creatinine (0.66-1.25) mg/dL Glucose (74-99) mg/dL POC Glucose (mg/dL) (75-99) mg/dL Ferritin (22.0-322.0) ng/mL Lactate Dehydrogenase (313-618) U/L Creatine Kinase (55-170) U/L C-Reactive Protein (<1.0) mg/dL Total Protein (6.3-8.2) g/dL Albumin (3.5-5.0) g/dL Microbiology - Last 24 Hours (Table) 12/06/20 04:15 Gram Stain - Preliminary Sputum Sputum Culture - Preliminary Escherichia coli 12/05/20 15:23 Blood Culture - Preliminary Blood No Growth after 48 hours 12/04/20 14:19 Blood Culture - Preliminary Blood No Growth after 72 hours 12/04/20 14:19 Blood Culture - Preliminary Blood No Growth after 72 hours Assessment and Plan Assessment: gram-negative pneumonia Acute on chronic hypoxic respiratory failure 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-19 pneumonia severe Sepsis and fever Due to gram-negative pneumonia Generalized weakness and medical debility Asbestosis lung Advanced diabetes mellitus with hyperglycemia Chronic kidney disease stage III Plan: central line Lovenox 30 mg subcu every 12 tube feed as per protocol Labs chest x-ray and ABG in the morning Plan to sedate and medically paralyzed with propofol, fentanyl, Nimbex Vasopressors as needed Fluid boluses as needed Follow-up on [place] cultures including sputum urine and blood continue antibiotics IV steroids Continue supplemental oxygen Deep breathing exercise incentive spirometry Time with Patient: Greater than 30
[2020-12-08] MEDS ORDERED: SODIUM CHLORIDE 0.9% 1,000 ML IV ONE ×2 (11:15→13:00)
[2020-12-08] MEDS: CHOLECALCIFEROL 25 MCG (1000 IU) TABLET PO SCH (11:26)
[2020-12-08] MEDS: PANTOPRAZOLE 40 MG TABLET PO SCH (11:27)
[2020-12-08] MEDS: GABAPENTIN 300 MG CAP PO SCH (11:27)
[2020-12-08] MEDS: ZINC SULFATE 220 MG CAP PO SCH (11:27)
[2020-12-08 11:31] VITALS: BMI 35.5
[2020-12-08] MEDS: atenoloL 25 MG TAB PO SCH (11:32)
[2020-12-08] MEDS: amLODIPine 10 MG TAB PO SCH (11:32)
[2020-12-08] MEDS: ASPIRIN 81 MG PO SCH (11:34)
--- NOTE | 2020-12-08 11:43 | P.PCN ---
Date of Procedure: 12/08/20 Preoperative Diagnosis: sepsis, gram-negative pneumonia, intravascular volume depletion and dehydration Postoperative Diagnosis: same Procedure(s) Performed: right-sided internal jugular central venous line/triple-lumen catheter Anesthesia: local Surgeon: Armen Cervantes Estimated Blood Loss (ml): 1 Condition: critical Disposition: ICU Indications for Procedure: as above Operative Findings: as below Description of Procedure: patient prepared and draped in a usual fashion with modified Seldinger technique under ultrasonic guidance right-sided internal jugular triple-lumen catheter placed all ports are flushed no complication noted tolerated very well
[2020-12-08 12:01] LABS: Glucose,Whole Blood 256 mg/dL (75-99)
--- NOTE | 2020-12-08 12:14 | XR ---
EXAMINATION TYPE: XR chest 1V portable DATE OF EXAM: 12/08/2020 COMPARISON: Chest x-ray 12/08/2020 HISTORY: Central venous catheter placement TECHNIQUE: Single frontal view of the chest is obtained. FINDINGS: There is been interval placement of a right jugular central venous catheter, distal tip is over the right atrium. There is no evident pneumothorax. IMPRESSION: No evident complication status post central venous catheter placement.
[2020-12-08] MEDS: CISATRACURIUM 200 MG in SODIUM CHLORIDE 0.9% 180 ML IV SCH (12:56)
[2020-12-08] MEDS: MEROPENEM 1 GM in SODIUM CHLORIDE 0.9% 100 ML IVPB SCH (16:29)
[2020-12-08 17:37] LABS: Glucose,Whole Blood 202 mg/dL (75-99)
--- NOTE | 2020-12-08 17:38 | P.PN ---
Subjective Progress Note Date: 12/08/20 Principal diagnosis: Gram-negative pneumonia 70-year-old male came in with the complaints of shortness of breath on 4 L of oxygen and oxygen saturation is going down to 78%. Patient is comparing of cough with yellowish sputum production. Patient was having high-grade fevers patient denied any dysuria patient denied nausea vomiting. Patient was discharged from the hospital after 3 week treatment for Covid 19 patient was discharged earlier this month. Patient came back positive again on of this month patient did receive both Covid vaccines. Patient's creatinine at the time of discharge is around 1.3 presently around 1.3. Patient is bit hyponatremic. Patient at a chest x-ray which is showing bilateral infiltrates consistent with Covid 19, although infiltrates are mildly better compared to the previous x-rays. 12/07/2020 Patient is seen and evaluated in room at bedside; continues to complain of shortness of breath which is unchanged from previous; has been titrated down to 6 L high flow nasal cannula Vital signs are reviewed and reveal a temperature of 97.7, pulse 79, respiration 16 and blood pressure 111/65 with O2 saturation at 97% on 6 L HFNC Patient remains on IV antibiotics in form of cefazolin 2 g every 8 hours; cultures are pending; ID on board and recommending to continue current antibiotics to final culture results are available; we will monitor CBC and inflammatory markers and make adjustments as needed 12/08/2020 Patient is seen and evaluated in ICU; patient developed acute respiratory distress last night and was placed on BiPAP; patient was intubated and transferred to ICU due to progressive worsening; patient was found to be hypotensive requiting fluid boluses Patient was started on propofol and fentanyl drip; IV cefepime continued for gram-negative pneumonia; final sputum cultures are still pending; lab review shows an elevated white blood count of 23,000, d-dimer up to 3.97, BUN/creatinine of 45/1.37, ferritin of 631, LDH of 1658 and CRP of 15.9 Chest x-ray shows dense bilateral infiltrates possible pulmonary fibrosis due to extensive Covid 19 pneumonia; patient has been placed on subcu Lovenox and IV steroids Family is considering comfort care option Objective - Vital Signs Vital signs: Vital Signs Temp 97.9 F 12/08/20 08:00 Pulse 71 12/08/20 11:00 Resp 19 12/08/20 10:00 BP 101/57 12/08/20 11:00 Pulse Ox 86 L 12/08/20 11:00 Intake & Output 12/07/20 12/08/20 12/08/20 18:59 06:59 18:59 Intake Total 450 110.642 846.897 Output Total 1000 1200 250 Balance -550 -1089.358 596.897 Weight 115.666 kg Intake: IV 100 600 Cefepime 2 gm In Sodium 100 Chloride 0.9% 100 ml @ 25 mls/hr IVPB Q8HR [facility] Rx# :[id number] Sodium Chloride 0.9% 1, 100 500 000 ml @ 100 mls/hr IV . Q10H [facility] Rx#:[id number] Intake, IV Titration 50 10.642 246.897 Amount cefTRIAXone 2 gm In 50 Sodium Chloride 0.9% 50 ml @ 100 mls/hr IVPB Q24HR [facility] Rx#:[id number] propofoL 1,000 mg In 10.642 246.897 Empty Bag 1 bag @ Titrate IV .Q0M [facility] Rx#: [id number] Oral 400 Output: Urine 1000 1200 250 Other: # Voids 1 ABP, PAP, CO, CI - Last Documented Arterial Blood Pressure 91/41 - Exam GENERAL: The patient is alert and oriented x3, patient is in mild acute distress. Well developed, well nourished. HEENT: Pupils are round and equally reacting to light. EOMI. No scleral icterus. No conjunctival pallor. Normocephalic, atraumatic. No pharyngeal erythema. No thyromegaly. CARDIOVASCULAR: S1 and S2 present. No murmurs, rubs, or gallops. PULMONARY: Chest is clear to auscultation, no wheezing or crackles. ABDOMEN: Soft, nontender, nondistended, normoactive bowel sounds. No palpable organomegaly. MUSCULOSKELETAL: No joint swelling or deformity. EXTREMITIES: No cyanosis, clubbing, or pedal edema. NEUROLOGICAL: Gross neurological examination did not reveal any focal deficits. SKIN: No rashes. - Labs CBC & Chem 7: 12/08/20 05:05 12/08/20 05:05 Labs: Abnormal Lab Results - Last 24 Hours (Table) 12/07/20 12/07/20 12/08/20 Range/Units 17:40 21:25 04:24 WBC (3.8-10.6) k/uL Neutrophils # (1.3-7.7) k/uL Lymphocytes # (1.0-4.8) k/uL APTT (22.0-30.0) sec Fibrinogen (200-500) mg/dL D-Dimer (<0.60) mg/L FEU ABG pH (7.35-7.45) ABG pCO2 (35-45) mmHg ABG pO2 (83-108) mmHg ABG HCO3 (21-25) mmol/L ABG Total CO2 (19-24) mmol/L ABG O2 Saturation (94-97) % Potassium (3.5-5.1) mmol/L BUN (9-20) mg/dL Creatinine (0.66-1.25) mg/dL Glucose (74-99) mg/dL POC Glucose (mg/dL) 274 H 248 H 271 H (75-99) mg/dL Ferritin (22.0-322.0) ng/mL Lactate Dehydrogenase (313-618) U/L Creatine Kinase (55-170) U/L C-Reactive Protein (<1.0) mg/dL Total Protein (6.3-8.2) g/dL Albumin (3.5-5.0) g/dL 12/08/20 12/08/20 12/08/20 Range/Units 04:34 04:58 05:05 WBC 23.0 H (3.8-10.6) k/uL Neutrophils # 21.9 H (1.3-7.7) k/uL Lymphocytes # 0.2 L (1.0-4.8) k/uL APTT (22.0-30.0) sec Fibrinogen (200-500) mg/dL D-Dimer (<0.60) mg/L FEU ABG pH 7.29 L (7.35-7.45) ABG pCO2 54 H (35-45) mmHg ABG pO2 54 L* (83-108) mmHg ABG HCO3 26 H (21-25) mmol/L ABG Total CO2 27 H (19-24) mmol/L ABG O2 Saturation 83.8 L (94-97) % Potassium (3.5-5.1) mmol/L BUN (9-20) mg/dL Creatinine (0.66-1.25) mg/dL Glucose (74-99) mg/dL POC Glucose (mg/dL) 286 H (75-99) mg/dL Ferritin (22.0-322.0) ng/mL Lactate Dehydrogenase (313-618) U/L Creatine Kinase (55-170) U/L C-Reactive Protein (<1.0) mg/dL Total Protein (6.3-8.2) g/dL Albumin (3.5-5.0) g/dL 12/08/20 12/08/20 12/08/20 Range/Units 05:05 05:05 07:04 WBC (3.8-10.6) k/uL Neutrophils # (1.3-7.7) k/uL Lymphocytes # (1.0-4.8) k/uL APTT 20.8 L (22.0-30.0) sec Fibrinogen 616 H (200-500) mg/dL D-Dimer 3.97 H (<0.60) mg/L FEU ABG pH 7.24 L (7.35-7.45) ABG pCO2 58 H (35-45) mmHg ABG pO2 (83-108) mmHg ABG HCO3 (21-25) mmol/L ABG Total CO2 27 H (19-24) mmol/L ABG O2 Saturation (94-97) % Potassium 5.5 H (3.5-5.1) mmol/L BUN 45 H (9-20) mg/dL Creatinine 1.37 H (0.66-1.25) mg/dL Glucose 319 H (74-99) mg/dL POC Glucose (mg/dL) (75-99) mg/dL Ferritin 631.3 H (22.0-322.0) ng/mL Lactate Dehydrogenase 1658 H (313-618) U/L Creatine Kinase 37 L (55-170) U/L C-Reactive Protein 15.9 H (<1.0) mg/dL Total Protein 6.0 L (6.3-8.2) g/dL Albumin 3.3 L (3.5-5.0) g/dL 12/08/20 Range/Units 11:58 WBC (3.8-10.6) k/uL Neutrophils # (1.3-7.7) k/uL Lymphocytes # (1.0-4.8) k/uL APTT (22.0-30.0) sec Fibrinogen (200-500) mg/dL D-Dimer (<0.60) mg/L FEU ABG pH (7.35-7.45) ABG pCO2 (35-45) mmHg ABG pO2 (83-108) mmHg ABG HCO3 (21-25) mmol/L ABG Total CO2 (19-24) mmol/L ABG O2 Saturation (94-97) % Potassium (3.5-5.1) mmol/L BUN (9-20) mg/dL Creatinine (0.66-1.25) mg/dL Glucose (74-99) mg/dL POC Glucose (mg/dL) 256 H (75-99) mg/dL Ferritin (22.0-322.0) ng/mL Lactate Dehydrogenase (313-618) U/L Creatine Kinase (55-170) U/L C-Reactive Protein (<1.0) mg/dL Total Protein (6.3-8.2) g/dL Albumin (3.5-5.0) g/dL Microbiology - Last 24 Hours (Table) 12/06/20 04:15 Gram Stain - Preliminary Sputum Sputum Culture - Preliminary Escherichia coli 12/05/20 15:23 Blood Culture - Preliminary Blood No Growth after 48 hours 12/04/20 14:19 Blood Culture - Preliminary Blood No Growth after 72 hours 12/04/20 14:19 Blood Culture - Preliminary Blood No Growth after 72 hours Assessment and Plan Assessment: 1 sepsis: Patient probably has a secondary bacterial pneumonia patient was started on Rocephin and azithromycin azithromycin was discontinued, patient is ALLERGIC to vancomycin patient probably with benefit from staph coverage. Patient most probably has a post Covid bacterial pneumonia. COVID-19 PCR is negative on this hospitalization, pulmonary and infectious disease will evaluate the patient -Hypovolemic hyponatremia: Improved with IV fluids -elevated d-dimer secondary to pneumonia she doesn't have any chest pain -Acute on chronic hypoxic respiratory failure secondary to pneumonia. -History of asbestosis -Chronic kidney disease stage II to 3, his this chronic kidney disease probably secondary to acute tubular necrosis from his previous hospitalization and Covid --History of DVT in the past next and haven't after diabetes mellitus -Hypertension -Sleep apnea -Diabetic peripheral neuropathy -DVT prophylaxis with subcutaneous heparin
--- NOTE | 2020-12-08 19:14 | PN ---
PROGRESS NOTE DATE OF SERVICE: 12/08/2020 REASON FOR FOLLOWUP: Pneumonia. INTERVAL HISTORY: The patient did have respiratory distress and ended up getting intubated. The patient is currently on the vent. The patient is hemodynamically stable, not on pressor support though. He did have significant purulent secretions, more frothy through the ET. No diarrhea has been reported. PHYSICAL EXAMINATION: Blood pressure is 104/46, pulse of 67, temperature is 98.5, he is 97% on 100% FiO2. General description is an elderly male lying in in no distress. Respiratory system: Unlabored breathing, coarse breath sounds bilaterally. Heart S1, S2. Regular rate and rhythm. ABDOMEN: Soft, no tenderness. LABS: Hemoglobin is 14.3, white count 23, BUN of 45, creatinine 1.37. Sputum now finalized with ESBL. Blood culture so far negative. DIAGNOSTIC IMPRESSION AND PLAN: Patient with acute respiratory failure, multifactorial with possible component of aspiration pneumonia. Sputum has been ESBL. Antibiotic adjusted to meropenem. Repeat sputum and monitor clinical course closely. Prognosis . MMODL / IJN: [id number] /
[2020-12-08] MEDS: ENOXAPARIN 30 MG/0.3 ML SYRINGE SQ SCH (20:38)
[2020-12-08] MEDS ORDERED: CEFEPIME 2 GM in SODIUM CHLORIDE 0.9% 100 ML IVPB SCH (21:00)
[2020-12-08] MEDS: INSULIN DETEMIR (LEVEMIR) 100 UNIT/ML SYR SQ SCH (21:51)
[2020-12-08 21:52] LABS: Glucose,Whole Blood 235 mg/dL (75-99)
[2020-12-09] MEDS: MEROPENEM 1 GM in SODIUM CHLORIDE 0.9% 100 ML IVPB SCH ×4 (00:15→23:04)
[2020-12-09] MEDS: NOREPINEPHRINE 4 MG in SODIUM CHLORIDE 0.9% 250 ML IV SCH ×4 (03:09→21:41)
[2020-12-09 04:04] LABS: Basophils # (A) 0.1 k/uL (0-0.2); Basophils % (A) 0 %; Eosinophils % (A) 0 %; HCT 38.3 % (39.0-53.0); HGB 12.2 gm/dL (13.0-17.5); Hypochromasia Slight; Lymphocytes # (A) 0.2 k/uL (1.0-4.8); Lymphocytes % (A) 1 %; MCH 29.2 pg (25.0-35.0); MCHC 31.9 g/dL (31.0-37.0); MCV 91.7 fL (80.0-100.0); Mean Platelet Volume 6.6; Monocytes # (A) 1.1 k/uL (0-1.0); Monocytes % (A) 5 %; Neutrophils % (A) 94 %; Platelet Count 370 k/uL (150-450); RBC 4.17 m/uL (4.30-5.90); RDW 13.9 % (11.5-15.5); WBC 24.5 k/uL (3.8-10.6)
[2020-12-09 04:18] LABS: Albumin 2.7 g/dL (3.5-5.0); Calcium 8.1 mg/dL (8.4-10.2); Total Bilirubin 0.4 mg/dL (0.2-1.3); Total Protein 5.2 g/dL (6.3-8.2)
[2020-12-09 04:23] LABS: Potassium 6.4 mmol/L (3.5-5.1)
[2020-12-09 05:03] LABS: ABG HCO3 22 mmol/L (21-25); ABG Oxygen Saturation 91.7 % (94-97); ABG PCO2 69 mmHg (35-45); ABG PO2 71 mmHg (83-108); ABG TCO2 24 mmol/L (19-24); Allen Test Performed? Yes
--- NOTE | 2020-12-09 05:19 | P.EN ---
A team called on this patient for increase work of breathing any worsening hypoxemia patient is here for covid pneumonitis , with acute on chronic hypoxic respiratory failure patient suddenly had worsening hypoxemia , in the 70%. he is diaphoretic and very short of breath lung sounds diminished bilaterally with diffuse rales. patient was switched to bipap , with some improvement , however, he was showing signs of respiratory failure with increase work of breathing and paradoxical abd movement CXR done , showed no changes compared to earlier patient oxygenation remained low despite bipap . patient will be transferred to the ICU for close monitoring and potential intubation and vent support ICU attending notified and agrees with plan nurse supply chain development manager attempted to notify patient family , no one answered phone 35 minutes were spent in critical care time in the care of this patient
[2020-12-09] MEDS: SODIUM CHLORIDE 0.9% 1,000 ML IV SCH ×3 (05:26→21:42)
[2020-12-09 05:36] LABS: ABG PH 7.11 (7.35-7.45)
[2020-12-09 06:28] LABS: Glucose,Whole Blood 335 mg/dL (75-99)
[2020-12-09] MEDS: INSULIN ASPART (NovoLOG) 100 UNIT/ML VIAL SQ SCH ×4 (06:32→20:28)
[2020-12-09] MEDS ORDERED: SODIUM POLYSTYRENE SULFONATE 15 GM/60 ML BOTTLE PO STA (06:44)
[2020-12-09] MEDS: ALBUTEROL HFA INHALER INHALATION PRN ×4 (07:24→21:05)
[2020-12-09] MEDS: SYMBICORT 160-4.5 MCG INHALER INHALATION SCH ×2 (07:24→21:05)
--- NOTE | 2020-12-09 07:36 | XR ---
EXAMINATION TYPE: XR chest 1V portable DATE OF EXAM: 12/09/2020 COMPARISON: Chest x-ray 12/08/2020 HISTORY: Intubated TECHNIQUE: Single frontal view of the chest is obtained. FINDINGS: Endotracheal tube, orogastric tube, right jugular central venous catheter are again noted and are stable. Pleural calcification is linear seen within the medial aspect of the left hemithorax, patient is rotated. Bilateral airspace disease persists. There is no evident pneumothorax or sizable effusion. Cardiac mediastinal silhouette is likely stable. IMPRESSION: Correlate for pneumonia, edema, ARDS
[2020-12-09] MEDS: ENOXAPARIN 30 MG/0.3 ML SYRINGE SQ SCH ×2 (08:29→20:29)
[2020-12-09] MEDS: ZINC SULFATE 220 MG CAP PO SCH (08:30)
[2020-12-09] MEDS: amLODIPine 10 MG TAB PO SCH (08:30)
[2020-12-09] MEDS: PANTOPRAZOLE 40 MG/10 ML VIAL IVP SCH (08:30)
[2020-12-09] MEDS: methylPREDNISolone SOD SUCCI 40 MG/ML 1 ML VIAL IV SCH ×2 (08:30→20:29)
[2020-12-09] MEDS: CHOLECALCIFEROL 25 MCG (1000 IU) TABLET PO SCH (08:30)
[2020-12-09] MEDS: ASPIRIN 81 MG PO SCH (08:30)
[2020-12-09] MEDS: GABAPENTIN 300 MG CAP PO SCH (08:30)
[2020-12-09] MEDS: atenoloL 25 MG TAB PO SCH (08:30)
[2020-12-09] MEDS: CHLORHEXIDINE GLUCONATE 15 ML CUP MUCOUS MEM SCH ×2 (09:00→20:29)
[2020-12-09] MEDS ORDERED: SODIUM CHLORIDE 0.9% 1,000 ML IV ONE ×2 (09:17→14:49)
[2020-12-09] MEDS: CISATRACURIUM 200 MG in SODIUM CHLORIDE 0.9% 180 ML IV SCH ×2 (09:24→22:16)
--- NOTE | 2020-12-09 10:11 | P.PN ---
Subjective Progress Note Date: 12/09/20 (Critical care time spent 35 minutes) Principal diagnosis: Acute on chronic hypoxic respiratory failure with worsening status septic shock Bilateral gram-negative pneumonia due to ESBL E. coli Pulmonary fibrosis due to prior extensive COVID-19 pneumonia Sepsis and fever of unknown region Generalized weakness and medical debility Asbestosis lung Advanced diabetes mellitus with hyperglycemia Chronic kidney disease stage III 12/09/2020, patient seen eval examined continued to have marginal hemodynamics and respiratory status, patient sedated medically paralyzed with Nimbex drip, propofol, fentanyl drip, arterial blood gases done this morning reveal severe metabolic and respiratory acidosis ventilator have been adjusted now new ventricular setting includes assist control rate of 30 to volume of 550 PEEP remains 10 oxygen is down to 90%, patient now on levo fed, we'll try to taper down the levo fed by giving fluids S patient is volume depleted as well and lowering down propofol aim to bring down propofol to 30-40 mics in next 24 hours, fluid will be given 100 mL an hour continuous with fluid boluses boluses of 500 mL/h for 2 hours, patient remains on meropenem, potassium noted to be elevated to 6.4, BUN/creatinine slightly up to 55 1.8, we'll give Kayexalate 2 doses, repeat BMP later on today 12/08/2020, patient seen eval examined during the rounds labs reviewed medications reviewed, critical care time spent 45 minutes, patient developed progressive increased respiratory distress was transferred to the ICU was intubated for respiratory distress, patient has dense bilateral infiltrate, sputum is positive for gram-negative rods, patient is hypotensive requiring fluid boluses likely will required vasopressors as well, for agitation has been placed on propofol for now has been on 75 need to be paralyzed, patient has been also started on fentanyl drip, patient has been on Cefepime for gram-negative pneumonia, final sputum culture have been pending, patient currently on full ventilator support with 100% oxygen and 10 of PEEP, rate is 26, breathing about 28-30, volume is 500, peak pressure in low 30s, blood pressure after the boluses 100/40, respiratory rate is 32, heart rate 81 temperature sats are 91%, 1 cell count is up to 23,000 hemoglobin is stable 14, d-dimer continue to go up 3.97, arterial blood gases revealed pH of 7.24 pCO2 58-year-old O2 of 80 8/2 an hour after on above ventilator setting, potentially was 5.5, BUN/creatinine 45 1.37, patient has a elevated inflammatory parameters including ferritin in 631, LDH is 1658 C-reactive protein 15.9 patient will need a central line, we will sedate and medically paralyzed, will start tube feed, monitor labs closely, patient will be started on Lovenox 30 mg subcu every 12 12/06/2020, patient seen eval reexamined labs reviewed medications reviewed care plan discussed, respiratory status remains marginal denies any chest pain, however more hypoxic currently on 15 L high flow oxygen, remains afebrile hemodynamically stable, oxygen saturation is 93%, check urgent pro-calcitonin as well as d-dimer, if d-dimer is elevated consider doing a VQ scan and duplex ultrasound lower extremity, we will also check an echocardiogram This is a 70-year-old male well-known to me patient has a severe diabetes mellitus and chronic kidney disease as baseline, 2 months ago patient was admitted to hospital with acute COVID-19 pneumonia and respiratory failure patient was on 100% oxygen and BiPAP but however successfully tapered down up to 4 L nasal cannula was discharged home patient did not came back for follow-up, for the last few days has been spiking fever more short of breath oxygen in increase to 5 L nasal cannula came into the hospital for further evaluation chest x-ray not much change his code went testing is negative, patient has been vaccinated for COVID-19 his most recent chest x-ray continued to show cardiomegaly chronic changes, no particular significant change from prior x- rays, patient does have a history of asbestosis lung however Objective - Vital Signs Vital signs: Vital Signs Temp 98.1 F 12/09/20 08:00 Pulse 74 12/09/20 09:00 Resp 30 H 12/09/20 09:00 BP 133/57 12/09/20 09:00 Pulse Ox 90 L 12/09/20 09:00 Intake & Output 12/08/20 12/09/20 12/09/20 18:59 06:59 18:59 Intake Total 4201.120 2625.155 808.349 Output Total 400 240 50 Balance 3801.120 2385.155 758.349 Weight 115.666 kg Intake: IV 3400 1233 309 Cefepime 2 gm In Sodium 100 Chloride 0.9% 100 ml @ 25 mls/hr IVPB Q8HR [facility] Rx# :[id number] Meropenem 1 gm In Sodium 100 Chloride 0.9% 100 ml @ 33 .3 mls/hr IVPB Q8HR [facility] Rx#:[id number] Sodium Chloride 0.9% 1, 1200 1200 300 000 ml @ 100 mls/hr IV . Q10H [facility] Rx#:[id number] Sodium Chloride 0.9% 1, 2000 000 ml @ 500 mls/hr IV . Q2H [facility] Rx#:[id number] pressure bag 33 9 Intake, IV Titration 910.208 0302.155 337.349 Amount Cisatracurium 200 mg In 26.488 Sodium Chloride 0.9% 180 ml @ 1 MCG/KG/MIN 6.94 mls/hr IV .Q24H [facility] Rx#: [id number] Meropenem 1 gm In Sodium 100 Chloride 0.9% 100 ml @ 33 .3 mls/hr IVPB Q8HR [facility] Rx#:[id number] Norepinephrine 4 mg In 28.204 536.247 137.349 Sodium Chloride 0.9% 250 ml @ 0.05 MCG/KG/MIN 22. 034 mls/hr IV .[id number] [facility] Rx#:[id number] fentaNYL (PF). 1,000 mcg 118.176 22.265 In Sodium Chloride 0.9% 80 ml @ Per Protocol IV . Q0M [facility] Rx#:[id number] propofoL 1,000 mg In 508.252 605.643 100 Empty Bag 1 bag @ Titrate IV .Q0M [facility] Rx#: [id number] Oral 100 Tube Feeding 20 168 72 Other 60 90 Output: Urine 400 240 50 Other: Voiding Method Indwelling Catheter Indwelling Catheter ABP, PAP, CO, CI - Last Documented Arterial Blood Pressure 86/46 - Exam - Constitutional General appearance: sedated on full ventilator support - Neck Neck: normal ROM Carotids: bilateral: upstroke normal Thyroid: bilateral: normal size - Respiratory Respiratory: bilateral: diminished, rales - Cardiovascular Rhythm: regular Heart sounds: normal: S1, S2 - Gastrointestinal General gastrointestinal: soft - Integumentary Integumentary: normal turgor - Neurologic Neurologic: CNII-XII intact - Musculoskeletal Musculoskeletal: gait normal, generalized weakness, strength equal bilaterally - Psychiatric Psychiatric: sedated on full ventilator support - Labs CBC & Chem 7: 12/09/20 03:57 12/09/20 03:57 Labs: Abnormal Lab Results - Last 24 Hours (Table) 12/08/20 12/08/20 12/08/20 Range/Units 05:05 11:58 17:36 WBC (3.8-10.6) k/uL RBC (4.30-5.90) m/uL Hgb (13.0-17.5) gm/dL Hct (39.0-53.0) % Neutrophils # (1.3-7.7) k/uL Lymphocytes # (1.0-4.8) k/uL Monocytes # (0-1.0) k/uL ABG pH (7.35-7.45) ABG pCO2 (35-45) mmHg ABG pO2 (83-108) mmHg ABG O2 Saturation (94-97) % Potassium (3.5-5.1) mmol/L Chloride (98-107) mmol/L Carbon Dioxide (22-30) mmol/L BUN (9-20) mg/dL Creatinine (0.66-1.25) mg/dL Glucose (74-99) mg/dL POC Glucose (mg/dL) 256 H 202 H (75-99) mg/dL Calcium (8.4-10.2) mg/dL Ferritin 631.3 H (22.0-322.0) ng/mL Total Protein (6.3-8.2) g/dL Albumin (3.5-5.0) g/dL 12/08/20 12/09/20 12/09/20 Range/Units 21:49 03:57 03:57 WBC 24.5 H (3.8-10.6) k/uL RBC 4.17 L (4.30-5.90) m/uL Hgb 12.2 L (13.0-17.5) gm/dL Hct 38.3 L (39.0-53.0) % Neutrophils # 23.0 H (1.3-7.7) k/uL Lymphocytes # 0.2 L (1.0-4.8) k/uL Monocytes # 1.1 H (0-1.0) k/uL ABG pH (7.35-7.45) ABG pCO2 (35-45) mmHg ABG pO2 (83-108) mmHg ABG O2 Saturation (94-97) % Potassium 6.4 H* (3.5-5.1) mmol/L Chloride 110 H (98-107) mmol/L Carbon Dioxide 21 L (22-30) mmol/L BUN 55 H (9-20) mg/dL Creatinine 1.80 H (0.66-1.25) mg/dL Glucose 288 H (74-99) mg/dL POC Glucose (mg/dL) 235 H (75-99) mg/dL Calcium 8.1 L (8.4-10.2) mg/dL Ferritin (22.0-322.0) ng/mL Total Protein 5.2 L (6.3-8.2) g/dL Albumin 2.7 L (3.5-5.0) g/dL 12/09/20 12/09/20 Range/Units 05:00 06:26 WBC (3.8-10.6) k/uL RBC (4.30-5.90) m/uL Hgb (13.0-17.5) gm/dL Hct (39.0-53.0) % Neutrophils # (1.3-7.7) k/uL Lymphocytes # (1.0-4.8) k/uL Monocytes # (0-1.0) k/uL ABG pH 7.11 L* (7.35-7.45) ABG pCO2 69 H (35-45) mmHg ABG pO2 71 L (83-108) mmHg ABG O2 Saturation 91.7 L (94-97) % Potassium (3.5-5.1) mmol/L Chloride (98-107) mmol/L Carbon Dioxide (22-30) mmol/L BUN (9-20) mg/dL Creatinine (0.66-1.25) mg/dL Glucose (74-99) mg/dL POC Glucose (mg/dL) 335 H (75-99) mg/dL Calcium (8.4-10.2) mg/dL Ferritin (22.0-322.0) ng/mL Total Protein (6.3-8.2) g/dL Albumin (3.5-5.0) g/dL Microbiology - Last 24 Hours (Table) 12/05/20 15:23 Blood Culture - Preliminary Blood No Growth after 72 hours 12/04/20 14:19 Blood Culture - Preliminary Blood No Growth after 96 hours 12/04/20 14:19 Blood Culture - Preliminary Blood No Growth after 96 hours 12/06/20 04:15 Gram Stain - Preliminary Sputum Sputum Culture - Preliminary Escherichia coli Assessment and Plan Assessment: gram-negative pneumonia due to ESBL E. coli Severe sepsis and septic shock due to gram-negative pneumonia Acute on chronic hypoxic and hypercapnic respiratory failure hyperkalemia Metabolic and respiratory acidosis Uncontrolled diabetes Pulmonary fibrosis due to extensive recentCOVID-19 pneumonia Asbestosis lung Advanced diabetes mellitus with hyperglycemia Chronic kidney disease stage III Plan: Kayexalate IV fluid boluses and increase fluid to IV 100 mL an hour Kayexalate Repeat BMP after 2 doses of Kayexalate ventilator adjustment status post central line Lovenox 30 mg subcu every 12 tube feed as per protocol Labs chest x-ray and ABG in the morning Plan to sedate and medically paralyzed with propofol, fentanyl, Nimbex, titrated propofol down to 30-40 mics in next 24 hours Vasopressors as needed Fluid boluses as needed Follow-up on [place] cultures including sputum urine and blood continue antibiotics IV steroids Continue supplemental oxygen Deep breathing exercise incentive spirometry
[2020-12-09] MEDS ORDERED: INSULIN ASPART (NovoLOG) 100 UNIT/ML VIAL SQ SCH (12:00)
[2020-12-09 12:01] LABS: Glucose,Whole Blood 251 mg/dL (75-99)
[2020-12-09] MEDS ORDERED: INSULIN ASPART (NovoLOG) 100 UNIT/ML VIAL SQ ONE (12:02)
[2020-12-09 13:03] LABS: ABG Base Excess -8.2 mmol/L; ABG HCO3 21 mmol/L (21-25); ABG PCO2 58 mmHg (35-45); ABG PO2 77 mmHg (83-108); ABG TCO2 22 mmol/L (19-24)
[2020-12-09 13:07] LABS: ABG PH 7.16 (7.35-7.45)
[2020-12-09 14:16] LABS: Calcium 7.3 mg/dL (8.4-10.2); Potassium 5.8 mmol/L (3.5-5.1)
--- NOTE | 2020-12-09 15:07 | P.PN ---
Subjective Patient is being treated for secondary bacterial pneumonia and he was recently discharged after he was treated for Covid 19. 8. Patient is a pleasant 70-year-old male came in with the complaints of shortness of breath on 4 L of oxygen and oxygen saturation is going down to 78%. Patient is comparing of cough with yellowish sputum production. Patient was having high-grade fevers patient denied any dysuria patient denied nausea vomiting. Patient was discharged from the hospital after 3 week treatment for Covid 19 patient was discharged earlier this month. Patient came back positive again on of this month patient did receive both Covid vaccines. Patient's creatinine at the time of discharge is around 1.3 presently around 1.3. Patient is bit hyponatremic. Patient at a chest x-ray which is showing bilateral infiltrates consistent with Covid 19, although infiltrates are mildly better compared to the previous x-rays. 12/05/2020 Patient continues to have fevers is pretty status appears to have worsened a bit and patient is an 5 L of oxygen is still bit hypoxic and patient is in mild respiratory distress. Patient is being treated for secondary bacterial pneumonia. Repeat Covid 19 PCR is negative now. Patient blood sugars are well controlled. Dec 09 2020 Patient respiratory status worsened patient went into septic shock was subsequently transferred to intensive care unit with sputum cultures are showing ESBL E. coli patient was started on meropenem. Patient's ABGs consistent with the acidosis and both hypoxic as well as hypercapnic respiratory failure patient is presently on ventilator support. Assist control ventilation with PEEP of 10 have out of 90% set up respiratory rate of around 20 and tidal volume of 550. Patient is also numb nor- epinephrine. Patient is in septic shock. has very minimal urine output patient appears to have acute to the necrosis and patient has elevated creatinine of 2.15. Patient's potassium is elevated to 6.4 received Late has come down to 5.8. Patient is on the propofol sedation patient is also receiving systemic steroids. Atenolol and the Norvasc will be discontinued Constitutional: Denied any fatigue denied any fever. Cardio vascular: denied any chest pain, palpitations Gastrointestinal denied any nausea vomiting Pulmonary: As mentioned in the interval history Neurologic denied any new focal deficits All inpatient medications were reviewed and appropriate changes in these medications as dictated in the interval history and assessment and plan. Objective - Vital Signs Vital signs: Vital Signs Temp 98.6 F 12/09/20 12:00 Pulse 71 12/09/20 14:00 Resp 30 H 12/09/20 14:00 BP 119/53 12/09/20 14:00 Pulse Ox 94 L 12/09/20 14:00 Intake & Output 12/08/20 12/09/20 12/09/20 18:59 06:59 18:59 Intake Total 4201.120 2625.155 2742.851 Output Total 400 240 135 Balance 3801.120 2385.155 2607.851 Weight 115.666 kg Intake: IV 3400 1233 721 Cefepime 2 gm In Sodium 100 Chloride 0.9% 100 ml @ 25 mls/hr IVPB Q8HR [facility] Rx# :[id number] Meropenem 1 gm In Sodium 100 Chloride 0.9% 100 ml @ 33 .3 mls/hr IVPB Q8HR [facility] Rx#:[id number] Sodium Chloride 0.9% 1, 1200 1200 700 000 ml @ 100 mls/hr IV . Q10H [facility] Rx#:[id number] Sodium Chloride 0.9% 1, 2000 000 ml @ 500 mls/hr IV . Q2H [facility] Rx#:[id number] pressure bag 33 21 Intake, IV Titration 275.471 0182.155 1739.851 Amount Cisatracurium 200 mg In 26.488 59.279 Sodium Chloride 0.9% 180 ml @ 1 MCG/KG/MIN 6.94 mls/hr IV .Q24H [facility] Rx#: [id number] Meropenem 1 gm In Sodium 100 Chloride 0.9% 100 ml @ 33 .3 mls/hr IVPB Q8HR [facility] Rx#:[id number] Norepinephrine 4 mg In 28.204 536.247 280.572 Sodium Chloride 0.9% 250 ml @ 0.05 MCG/KG/MIN 22. 034 mls/hr IV .[id number] [facility] Rx#:[id number] Sodium Chloride 0.9% 1, 1000 000 ml @ 999 mls/hr IV . Q1H1M [facility] Rx#:[id number] fentaNYL (PF). 1,000 mcg 118.176 22.265 In Sodium Chloride 0.9% 80 ml @ Per Protocol IV . Q0M [facility] Rx#:[id number] propofoL 1,000 mg In 508.252 605.643 300 Empty Bag 1 bag @ Titrate IV .Q0M [facility] Rx#: [id number] Oral 100 Tube Feeding 20 168 162 Other 60 120 Output: Urine 400 240 135 Other: Voiding Method Indwelling Catheter Indwelling Catheter Indwelling Catheter ABP, PAP, CO, CI - Last Documented Arterial Blood Pressure 91/40 - Exam PHYSICAL EXAMINATION: GENERAL: Patient is intubated sedated HEENT: Pupils are round and equally reacting to light. EOMI. No scleral icterus. No conjunctival pallor. Normocephalic, atraumatic. No pharyngeal erythema. No thyromegaly. CARDIOVASCULAR: S1 and S2 present. No murmurs, rubs, or gallops. PULMONARY: Chest is clear to auscultation, no wheezing or crackles. ABDOMEN: Soft, nontender, nondistended, normoactive bowel sounds. No palpable organomegaly. MUSCULOSKELETAL: No joint swelling or deformity. EXTREMITIES: No cyanosis, clubbing, or pedal edema. NEUROLOGICAL: Sedated. SKIN: No rashes. - Labs CBC & Chem 7: 12/09/20 03:57 12/09/20 14:00 Labs: Abnormal Lab Results - Last 24 Hours (Table) 12/08/20 12/08/20 12/09/20 Range/Units 17:36 21:49 03:57 WBC 24.5 H (3.8-10.6) k/uL RBC 4.17 L (4.30-5.90) m/uL Hgb 12.2 L (13.0-17.5) gm/dL Hct 38.3 L (39.0-53.0) % Neutrophils # 23.0 H (1.3-7.7) k/uL Lymphocytes # 0.2 L (1.0-4.8) k/uL Monocytes # 1.1 H (0-1.0) k/uL ABG pH (7.35-7.45) ABG pCO2 (35-45) mmHg ABG pO2 (83-108) mmHg ABG O2 Saturation (94-97) % Potassium (3.5-5.1) mmol/L Chloride (98-107) mmol/L Carbon Dioxide (22-30) mmol/L BUN (9-20) mg/dL Creatinine (0.66-1.25) mg/dL Glucose (74-99) mg/dL POC Glucose (mg/dL) 202 H 235 H (75-99) mg/dL Calcium (8.4-10.2) mg/dL Phosphorus (2.5-4.5) mg/dL Total Protein (6.3-8.2) g/dL Albumin (3.5-5.0) g/dL 12/09/20 12/09/20 12/09/20 Range/Units 03:57 03:57 05:00 WBC (3.8-10.6) k/uL RBC (4.30-5.90) m/uL Hgb (13.0-17.5) gm/dL Hct (39.0-53.0) % Neutrophils # (1.3-7.7) k/uL Lymphocytes # (1.0-4.8) k/uL Monocytes # (0-1.0) k/uL ABG pH 7.11 L* (7.35-7.45) ABG pCO2 69 H (35-45) mmHg ABG pO2 71 L (83-108) mmHg ABG O2 Saturation 91.7 L (94-97) % Potassium 6.4 H* (3.5-5.1) mmol/L Chloride 110 H (98-107) mmol/L Carbon Dioxide 21 L (22-30) mmol/L BUN 55 H (9-20) mg/dL Creatinine 1.80 H (0.66-1.25) mg/dL Glucose 288 H (74-99) mg/dL POC Glucose (mg/dL) (75-99) mg/dL Calcium 8.1 L (8.4-10.2) mg/dL Phosphorus 7.0 H (2.5-4.5) mg/dL Total Protein 5.2 L (6.3-8.2) g/dL Albumin 2.7 L (3.5-5.0) g/dL 12/09/20 12/09/20 12/09/20 Range/Units 06:26 10:11 12:00 WBC (3.8-10.6) k/uL RBC (4.30-5.90) m/uL Hgb (13.0-17.5) gm/dL Hct (39.0-53.0) % Neutrophils # (1.3-7.7) k/uL Lymphocytes # (1.0-4.8) k/uL Monocytes # (0-1.0) k/uL ABG pH 7.16 L* (7.35-7.45) ABG pCO2 58 H (35-45) mmHg ABG pO2 77 L (83-108) mmHg ABG O2 Saturation (94-97) % Potassium (3.5-5.1) mmol/L Chloride (98-107) mmol/L Carbon Dioxide (22-30) mmol/L BUN (9-20) mg/dL Creatinine (0.66-1.25) mg/dL Glucose (74-99) mg/dL POC Glucose (mg/dL) 335 H 251 H (75-99) mg/dL Calcium (8.4-10.2) mg/dL Phosphorus (2.5-4.5) mg/dL Total Protein (6.3-8.2) g/dL Albumin (3.5-5.0) g/dL 12/09/20 Range/Units 14:00 WBC (3.8-10.6) k/uL RBC (4.30-5.90) m/uL Hgb (13.0-17.5) gm/dL Hct (39.0-53.0) % Neutrophils # (1.3-7.7) k/uL Lymphocytes # (1.0-4.8) k/uL Monocytes # (0-1.0) k/uL ABG pH (7.35-7.45) ABG pCO2 (35-45) mmHg ABG pO2 (83-108) mmHg ABG O2 Saturation (94-97) % Potassium 5.8 H (3.5-5.1) mmol/L Chloride 112 H (98-107) mmol/L Carbon Dioxide 20 L (22-30) mmol/L BUN 60 H (9-20) mg/dL Creatinine 2.15 H (0.66-1.25) mg/dL Glucose 269 H (74-99) mg/dL POC Glucose (mg/dL) (75-99) mg/dL Calcium 7.3 L (8.4-10.2) mg/dL Phosphorus (2.5-4.5) mg/dL Total Protein (6.3-8.2) g/dL Albumin (3.5-5.0) g/dL Microbiology - Last 24 Hours (Table) 12/08/20 20:20 Gram Stain - Preliminary Sputum Sputum Culture - Preliminary 12/06/20 04:15 Gram Stain - Final Sputum Sputum Culture - Final Escherichia coli 12/05/20 15:23 Blood Culture - Preliminary Blood No Growth after 72 hours 12/04/20 14:19 Blood Culture - Preliminary Blood No Growth after 96 hours 12/04/20 14:19 Blood Culture - Preliminary Blood No Growth after 96 hours Assessment and Plan Plan: 1 septic shock: Patient probably has a secondary bacterial pneumonia, patient's (a positive for E. coli which is ESBL E. coli patient is presently on meropenem. Patient is also on pressor support as mentioned above patient is on ventilatory support. Patient most probably has a post Covid bacterial pneumonia. COVID-19 PCR is negative on this hospitalization, pulmonary and infectious disease are following the patient. -Acute hypoxic respiratory failure secondary to septic shock patient is presently on norepinephrine -Hyperkalemia secondary to acute renal failure -Acute renal failure secondary to acute tubular necrosis from septic shock, nephrology will be consulted -Hypovolemic hyponatremia: Improved with IV fluids -elevated d-dimer secondary to pneumonia . -Acute on chronic hypoxic respiratory failure secondary to pneumonia. -History of asbestosis -Chronic kidney disease stage II to 3. Probable diabetic nephropathy --History of DVT in the past -Type 2 diabetes mellitus: Uncontrolled elevated blood sugars patient's long- acting insulin dose will be increased. -Hypertension -Sleep apnea -Diabetic peripheral neuropathy -DVT prophylaxis with subcutaneous heparin
[2020-12-09 15:37] LABS: Glucose,Whole Blood 241 mg/dL (75-99)
[2020-12-09] MEDS: fentaNYL (PF). 1,000 MCG in SODIUM CHLORIDE 0.9% 80 ML IV SCH (16:31)
[2020-12-09 18:18] LABS: Glucose,Whole Blood 215 mg/dL (75-99)
[2020-12-09] MEDS ORDERED: INSULIN REGULAR 100 UNIT/ML VIAL IV ONE (19:00)
[2020-12-09 20:07] LABS: Glucose,Whole Blood 184 mg/dL (75-99)
[2020-12-09] MEDS: INSULIN DETEMIR (LEVEMIR) 100 UNIT/ML SYR SQ SCH (20:29)
[2020-12-09 23:58] LABS: Glucose,Whole Blood 217 mg/dL (75-99)
--- NOTE | 2020-12-10 00:27 | PN ---
PROGRESS NOTE DATE OF SERVICE: 12/09/2020 REASON FOR FOLLOWUP: Gram-negative pneumonia. INTERVAL HISTORY: Patient is currently afebrile. The patient is hemodynamically stable, though requiring low-dose pressor support. The patient is currently on 75% FiO2. No significant purulent secretions through the ET or diarrhea reported by nursing staff. PHYSICAL EXAMINATION: Blood pressure is 126/59 with a pulse of 66 temp 97.7. His 55% FiO2. General description is an elderly male intubated on the vent. Respiratory system: Unlabored breathing, decreased breath sounds at the base. No wheeze. HEART: S1, S2. Regular rate and rhythm. Abdomen soft. No tenderness. EXTREMITIES: No edema of the feet. LABS: BUN of 16, creatinine is 2.15. DIAGNOSTIC IMPRESSION: Patient with acute respiratory failure which is multifactorial in this patient who did have a component of pneumonia. Sputum is positive for ESBL. Patient is covered with meropenem to continue while monitoring clinical course closely. Continue supportive care. MMODL / IJN: [id number] /
[2020-12-10] MEDS: INSULIN ASPART (NovoLOG) 100 UNIT/ML VIAL SQ SCH ×6 (00:31→20:24)
[2020-12-10] MEDS: NOREPINEPHRINE 4 MG in SODIUM CHLORIDE 0.9% 250 ML IV SCH (02:11)
[2020-12-10 03:51] LABS: Basophils # (A) 0.1 k/uL (0-0.2); Basophils % (A) 0 %; Eosinophils % (A) 0 %; HCT 38.5 % (39.0-53.0); HGB 11.9 gm/dL (13.0-17.5); Hypochromasia Slight; Lymphocytes # (A) 0.2 k/uL (1.0-4.8); Lymphocytes % (A) 1 %; MCH 28.5 pg (25.0-35.0); MCHC 30.9 g/dL (31.0-37.0); MCV 92.1 fL (80.0-100.0); Mean Platelet Volume 6.6; Monocytes # (A) 0.6 k/uL (0-1.0); Monocytes % (A) 3 %; Neutrophils # (A) 17.8 k/uL (1.3-7.7); Neutrophils % (A) 95 %; Platelet Count 286 k/uL (150-450); RBC 4.17 m/uL (4.30-5.90); RDW 14.3 % (11.5-15.5); WBC 18.8 k/uL (3.8-10.6)
[2020-12-10 04:03] LABS: Albumin 2.5 g/dL (3.5-5.0); Calcium 7.3 mg/dL (8.4-10.2); Potassium 5.9 mmol/L (3.5-5.1); Total Bilirubin 0.3 mg/dL (0.2-1.3)
[2020-12-10 04:05] LABS: Glucose,Whole Blood 227 mg/dL (75-99)
[2020-12-10 05:32] LABS: ABG Base Excess -11.7 mmol/L; ABG HCO3 17 mmol/L (21-25); ABG Oxygen Saturation 91.7 % (94-97); ABG PCO2 51 mmHg (35-45); ABG PO2 70 mmHg (83-108); ABG TCO2 19 mmol/L (19-24); Allen Test Performed? Yes
[2020-12-10 05:35] LABS: ABG PH 7.14 (7.35-7.45)
[2020-12-10] MEDS ORDERED: INSULIN REGULAR 100 UNIT/ML VIAL IV ONE (06:11)
[2020-12-10] MEDS ORDERED: FUROSEMIDE 10 MG/ML 10 ML VIAL IV STA (06:12)
[2020-12-10] MEDS ORDERED: SODIUM BICARB 8.4% 50 ML SYR (1 MEQ/ML) IV STA (06:25)
[2020-12-10] MEDS ORDERED: DEXTROSE 5% IN WATER 1,000 ML with SODIUM BICARB (1 MEQ/ML) 150 ML IV SCH (06:30)
[2020-12-10] MEDS: SODIUM CHLORIDE 0.9% 1,000 ML IV SCH ×2 (06:32→15:52)
[2020-12-10] MEDS: MEROPENEM 1 GM in SODIUM CHLORIDE 0.9% 100 ML IVPB SCH ×3 (07:04→23:28)
[2020-12-10] MEDS: fentaNYL (PF). 1,000 MCG in SODIUM CHLORIDE 0.9% 80 ML IV SCH (07:12)
[2020-12-10] MEDS: ALBUTEROL HFA INHALER INHALATION PRN ×4 (07:18→20:44)
[2020-12-10] MEDS: SYMBICORT 160-4.5 MCG INHALER INHALATION SCH ×2 (07:18→20:45)
[2020-12-10 07:54] LABS: Glucose,Whole Blood 255 mg/dL (75-99)
[2020-12-10] MEDS ORDERED: INSULIN ASPART (NovoLOG) 100 UNIT/ML VIAL SQ ONE (07:56)
[2020-12-10] MEDS: CHLORHEXIDINE GLUCONATE 15 ML CUP MUCOUS MEM SCH ×2 (08:02→20:28)
[2020-12-10] MEDS: ENOXAPARIN 30 MG/0.3 ML SYRINGE SQ SCH ×2 (08:02→20:28)
[2020-12-10] MEDS: atenoloL 25 MG TAB PO SCH (08:02)
[2020-12-10] MEDS: methylPREDNISolone SOD SUCCI 40 MG/ML 1 ML VIAL IV SCH ×2 (08:03→20:28)
[2020-12-10] MEDS: CHOLECALCIFEROL 25 MCG (1000 IU) TABLET PO SCH (08:03)
[2020-12-10] MEDS: GABAPENTIN 300 MG CAP PO SCH (08:03)
[2020-12-10] MEDS: ZINC SULFATE 220 MG CAP PO SCH (08:03)
[2020-12-10] MEDS: PANTOPRAZOLE 40 MG/10 ML VIAL IVP SCH (08:03)
--- NOTE | 2020-12-10 08:03 | XR ---
EXAMINATION TYPE: XR chest 1V portable DATE OF EXAM: 12/10/2020 COMPARISON: 12/09/2020 HISTORY: Tube placement TECHNIQUE: Single frontal view of the chest is obtained. FINDINGS: ET and NG tube stable. Central line stable and there is atherosclerotic change aorta. Diff use bilateral airspace disease with pleural effusion and cardiomegaly stable no sizable pneumothorax. IMPRESSION: Stable diffuse bilateral airspace disease
--- NOTE | 2020-12-10 11:09 | P.PN ---
Subjective Progress Note Date: 12/10/20 (Critical care time 35 minutes) Principal diagnosis: Acute on chronic hypoxic respiratory failure with worsening status septic shock Bilateral gram-negative pneumonia due to ESBL E. coli Acute kidney injury Hyperkalemia Uncontrolled diabetes and hyperglycemia Pulmonary fibrosis due to prior extensive COVID-19 pneumonia Sepsis and fever of unknown region Generalized weakness and medical debility Asbestosis lung Advanced diabetes mellitus with hyperglycemia Chronic kidney disease stage III 12/10/2020, patient seen eval examined in the ICU, he remains intubated and medically sedated and paralyzed on the propofol, name backs and fentanyl drip, levo fed is now came off after fluid boluses, patient has significant metabolic acidosis due to multifactorial processes including acute kidney injury pneumonia and the vasopressors, patient has been on bicarb drip, being adjusted, to feed is in process, hemodynamic status is slightly better, FiO2 is started down to 70%, underwent setting includes assist control rate of 30 to volume of 550 10 of PEEP, arterial blood gases reviewed pH 7.14 pCO2 51 patient was given 1 amp of bicarb with the bicarb drip white cell count is down to 18,800, hemodynamic status slightly stable than before, overall plan is to continue to come down oxygen monitor renal functions closely monitor hyperkalemia, repeat chemistry pending for later on today 12/09/2020, patient seen eval examined continued to have marginal hemodynamics and respiratory status, patient sedated medically paralyzed with Nimbex drip, propofol, fentanyl drip, arterial blood gases done this morning reveal severe metabolic and respiratory acidosis ventilator have been adjusted now new ventricular setting includes assist control rate of 30 to volume of 550 PEEP remains 10 oxygen is down to 90%, patient now on levo fed, we'll try to taper down the levo fed by giving fluids S patient is volume depleted as well and lowering down propofol aim to bring down propofol to 30-40 mics in next 24 hours, fluid will be given 100 mL an hour continuous with fluid boluses boluses of 500 mL/h for 2 hours, patient remains on meropenem, potassium noted to be elevated to 6.4, BUN/creatinine slightly up to 55 1.8, we'll give Kayexalate 2 doses, repeat BMP later on today 12/08/2020, patient seen eval examined during the rounds labs reviewed medications reviewed, critical care time spent 45 minutes, patient developed progressive increased respiratory distress was transferred to the ICU was intubated for respiratory distress, patient has dense bilateral infiltrate, sp utum is positive for gram-negative rods, patient is hypotensive requiring fluid boluses likely will required vasopressors as well, for agitation has been placed on propofol for now has been on 75 need to be paralyzed, patient has been also started on fentanyl drip, patient has been on Cefepime for gram-negative pneumonia, final sputum culture have been pending, patient currently on full ventilator support with 100% oxygen and 10 of PEEP, rate is 26, breathing about 28-30, volume is 500, peak pressure in low 30s, blood pressure after the boluses 100/40, respiratory rate is 32, heart rate 81 temperature sats are 91%, 1 cell count is up to 23,000 hemoglobin is stable 14, d-dimer continue to go up 3.97, arterial blood gases revealed pH of 7.24 pCO2 58-year-old O2 of 80 8/2 an hour after on above ventilator setting, potentially was 5.5, BUN/creatinine 45 1.37, patient has a elevated inflammatory parameters including ferritin in 631, LDH is 1658 C-reactive protein 15.9 patient will need a central line, we will sedate and medically paralyzed, will start tube feed, monitor labs closely, patient will be started on Lovenox 30 mg subcu every 12 12/06/2020, patient seen eval reexamined labs reviewed medications reviewed care plan discussed, respiratory status remains marginal denies any chest pain, however more hypoxic currently on 15 L high flow oxygen, remains afebrile hemodynamically stable, oxygen saturation is 93%, check urgent pro-calcitonin as well as d-dimer, if d-dimer is elevated consider doing a VQ scan and duplex ultrasound lower extremity, we will also check an echocardiogram This is a 70-year-old male well-known to me patient has a severe diabetes mellitus and chronic kidney disease as baseline, 2 months ago patient was admitted to hospital with acute COVID-19 pneumonia and respiratory failure patient was on 100% oxygen and BiPAP but however successfully tapered down up to 4 L nasal cannula was discharged home patient did not came back for follow-up, for the last few days has been spiking fever more short of breath oxygen in increase to 5 L nasal cannula came into the hospital for further evaluation chest x-ray not much change his code went testing is negative, patient has been vaccinated for COVID-19 his most recent chest x-ray continued to show cardiome joe chronic changes, no particular significant change from prior x-rays, patient does have a history of asbestosis lung however Objective - Vital Signs Vital signs: Vital Signs Temp 97.8 F 12/10/20 08:00 Pulse 68 12/10/20 10:00 Resp 30 H 12/10/20 10:00 BP 114/58 12/10/20 10:00 Pulse Ox 94 L 12/10/20 10:00 Intake & Output 12/09/20 12/10/20 12/10/20 18:59 06:59 18:59 Intake Total 4888.275 2840.783 934.696 Output Total 225 245 335 Balance 4663.275 2595.783 599.696 Intake: IV 1361 1536 197 Sodium Chloride 0.9% 1, 1325 1500 185 000 ml @ 125 mls/hr IV . Q8H [facility] Rx#:[id number] pressure bag 36 36 12 Intake, IV Titration 3107.275 980.783 557.696 Amount Cisatracurium 200 mg In 59.279 86.287 Sodium Chloride 0.9% 180 ml @ 1 MCG/KG/MIN 6.94 mls/hr IV .Q24H [facility] Rx#: [id number] Dextrose 5% in Water 1, 120 000 ml @ 40 mls/hr IV . Q24H [facility] with Sodium Bicarb (1 Meq/ml) 150 ml Rx#:[id number] Meropenem 1 gm In Sodium 200 Chloride 0.9% 100 ml @ 33 .3 mls/hr IVPB Q8HR [facility] Rx#:[id number] Norepinephrine 4 mg In 347.996 434.246 152.846 Sodium Chloride 0.9% 250 ml @ 0.05 MCG/KG/MIN 22. 034 mls/hr IV .[id number] [facility] Rx#:[id number] Sodium Chloride 0.9% 1, 1000 000 ml @ 999 mls/hr IV . Q1H1M [facility] Rx#:[id number] Sodium Chloride 0.9% 1, 1000 000 ml @ 999 mls/hr IV . Q1H1M [facility] Rx#:[id number] fentaNYL (PF). 1,000 mcg 100 84.914 In Sodium Chloride 0.9% 80 ml @ Per Protocol IV . Q0M [facility] Rx#:[id number] propofoL 1,000 mg In 400 460.250 199.936 Empty Bag 1 bag @ Titrate IV .Q0M [facility] Rx#: [id number] Tube Feeding 270 234 90 Other 150 90 90 Output: Urine 225 245 335 Other: Voiding Method Indwelling Catheter Indwelling Catheter Indwelling Catheter ABP, PAP, CO, CI - Last Documented Arterial Blood Pressure 107/45 - Exam - Constitutional General appearance: sedated on full ventilator support - Neck Neck: normal ROM Carotids: bilateral: upstroke normal Thyroid: bilateral: normal size - Respiratory Respiratory: bilateral: diminished, rales - Cardiovascular Rhythm: regular Heart sounds: normal: S1, S2 - Gastrointestinal General gastrointestinal: soft - Integumentary Integumentary: normal turgor - Neurologic Neurologic: CNII-XII intact - Musculoskeletal Musculoskeletal: gait normal, generalized weakness, strength equal bilaterally - Psychiatric Psychiatric: sedated on full ventilator support - Labs CBC & Chem 7: 12/10/20 03:20 12/10/20 03:20 Labs: Abnormal Lab Results - Last 24 Hours (Table) 12/09/20 12/09/20 12/09/20 Range/Units 10:11 12:00 14:00 WBC (3.8-10.6) k/uL RBC (4.30-5.90) m/uL Hgb (13.0-17.5) gm/dL Hct (39.0-53.0) % MCHC (31.0-37.0) g/dL Neutrophils # (1.3-7.7) k/uL Lymphocytes # (1.0-4.8) k/uL ABG pH 7.16 L* (7.35-7.45) ABG pCO2 58 H (35-45) mmHg ABG pO2 77 L (83-108) mmHg ABG HCO3 (21-25) mmol/L ABG O2 Saturation (94-97) % Potassium 5.8 H (3.5-5.1) mmol/L Chloride 112 H (98-107) mmol/L Carbon Dioxide 20 L (22-30) mmol/L BUN 60 H (9-20) mg/dL Creatinine 2.15 H (0.66-1.25) mg/dL Glucose 269 H (74-99) mg/dL POC Glucose (mg/dL) 251 H (75-99) mg/dL Calcium 7.3 L (8.4-10.2) mg/dL Total Protein (6.3-8.2) g/dL Albumin (3.5-5.0) g/dL 12/09/20 12/09/20 12/09/20 Range/Units 15:34 18:16 20:05 WBC (3.8-10.6) k/uL RBC (4.30-5.90) m/uL Hgb (13.0-17.5) gm/dL Hct (39.0-53.0) % MCHC (31.0-37.0) g/dL Neutrophils # (1.3-7.7) k/uL Lymphocytes # (1.0-4.8) k/uL ABG pH (7.35-7.45) ABG pCO2 (35-45) mmHg ABG pO2 (83-108) mmHg ABG HCO3 (21-25) mmol/L ABG O2 Saturation (94-97) % Potassium (3.5-5.1) mmol/L Chloride (98-107) mmol/L Carbon Dioxide (22-30) mmol/L BUN (9-20) mg/dL Creatinine (0.66-1.25) mg/dL Glucose (74-99) mg/dL POC Glucose (mg/dL) 241 H 215 H 184 H (75-99) mg/dL Calcium (8.4-10.2) mg/dL Total Protein (6.3-8.2) g/dL Albumin (3.5-5.0) g/dL 12/09/20 12/10/20 12/10/20 Range/Units 23:56 03:20 03:20 WBC 18.8 H (3.8-10.6) k/uL RBC 4.17 L (4.30-5.90) m/uL Hgb 11.9 L (13.0-17.5) gm/dL Hct 38.5 L (39.0-53.0) % MCHC 30.9 L (31.0-37.0) g/dL Neutrophils # 17.8 H (1.3-7.7) k/uL Lymphocytes # 0.2 L (1.0-4.8) k/uL ABG pH (7.35-7.45) ABG pCO2 (35-45) mmHg ABG pO2 (83-108) mmHg ABG HCO3 (21-25) mmol/L ABG O2 Saturation (94-97) % Potassium 5.9 H (3.5-5.1) mmol/L Chloride 112 H (98-107) mmol/L Carbon Dioxide 17 L (22-30) mmol/L BUN 65 H (9-20) mg/dL Creatinine 2.29 H (0.66-1.25) mg/dL Glucose 249 H (74-99) mg/dL POC Glucose (mg/dL) 217 H (75-99) mg/dL Calcium 7.3 L (8.4-10.2) mg/dL Total Protein 5.0 L (6.3-8.2) g/dL Albumin 2.5 L (3.5-5.0) g/dL 12/10/20 12/10/20 12/10/20 Range/Units 04:03 05:27 07:52 WBC (3.8-10.6) k/uL RBC (4.30-5.90) m/uL Hgb (13.0-17.5) gm/dL Hct (39.0-53.0) % MCHC (31.0-37.0) g/dL Neutrophils # (1.3-7.7) k/uL Lymphocytes # (1.0-4.8) k/uL ABG pH 7.14 L* (7.35-7.45) ABG pCO2 51 H (35-45) mmHg ABG pO2 70 L (83-108) mmHg ABG HCO3 17 L (21-25) mmol/L ABG O2 Saturation 91.7 L (94-97) % Potassium (3.5-5.1) mmol/L Chloride (98-107) mmol/L Carbon Dioxide (22-30) mmol/L BUN (9-20) mg/dL Creatinine (0.66-1.25) mg/dL Glucose (74-99) mg/dL POC Glucose (mg/dL) 227 H 255 H (75-99) mg/dL Calcium (8.4-10.2) mg/dL Total Protein (6.3-8.2) g/dL Albumin (3.5-5.0) g/dL Microbiology - Last 24 Hours (Table) 12/08/20 20:20 Gram Stain - Preliminary Sputum Sputum Culture - Preliminary Anamaria albicans 12/05/20 15:23 Blood Culture - Preliminary Blood No Growth after 96 hours 12/04/20 14:19 Blood Culture - Preliminary Blood No Growth after 120 hours 12/04/20 14:19 Blood Culture - Preliminary Blood No Growth after 120 hours 12/06/20 04:15 Gram Stain - Final Sputum Sputum Culture - Final Escherichia coli Assessment and Plan Assessment: gram-negative pneumonia due to ESBL E. coli Severe sepsis and septic shock due to gram-negative pneumonia Acute on chronic hypoxic and hypercapnic respiratory failure Acute kidney injury hyperkalemia Metabolic and respiratory acidosis Uncontrolled diabetes Pulmonary fibrosis due to extensive recentCOVID-19 pneumonia Asbestosis lung Advanced diabetes mellitus with hyperglycemia Chronic kidney disease stage III Plan: Bicarb 1 amp alert by bicarb drip Status post Kayexalate IV fluid boluses and increase fluid to IV 100 mL an hour ventilator adjustment status post central line Lovenox 30 mg subcu every 12 tube feed as per protocol Labs chest x-ray and ABG in the morning Plan to sedate and medically paralyzed with propofol, fentanyl, Nimbex, titrated propofol down to 30-40 mics in next 24 hours Vasopressors as needed Fluid boluses as needed Follow-up on [place] cultures including sputum urine and blood continue antibiotics IV steroids Continue supplemental oxygen Deep breathing exercise incentive spirometry Time with Patient: Greater than 30
[2020-12-10 11:56] LABS: Glucose,Whole Blood 248 mg/dL (75-99)
[2020-12-10] MEDS: SODIUM CHLORIDE 0.45% 1,000 ML with SODIUM BICARB (1 MEQ/ML) 100 ML IV SCH ×2 (12:01)
--- NOTE | 2020-12-10 12:26 | P.PN ---
Subjective Patient is being treated for secondary bacterial pneumonia and he was recently discharged after he was treated for Covid 19. 8. Patient is a pleasant 70-year-old male came in with the complaints of shortness of breath on 4 L of oxygen and oxygen saturation is going down to 78%. Patient is comparing of cough with yellowish sputum production. Patient was having high-grade fevers patient denied any dysuria patient denied nausea vomiting. Patient was discharged from the hospital after 3 week treatment for Covid 19 patient was discharged earlier this month. Patient came back positive again on of this month patient did receive both Covid vaccines. Patient's creatinine at the time of discharge is around 1.3 presently around 1.3. Patient is bit hyponatremic. Patient at a chest x-ray which is showing bilateral infiltrates consistent with Covid 19, although infiltrates are mildly better compared to the previous x-rays. 12/05/2020 Patient continues to have fevers is pretty status appears to have worsened a bit and patient is an 5 L of oxygen is still bit hypoxic and patient is in mild respiratory distress. Patient is being treated for secondary bacterial pneumonia. Repeat Covid 19 PCR is negative now. Patient blood sugars are well controlled. Dec 09 2020 Patient respiratory status worsened patient went into septic shock was subsequently transferred to intensive care unit with sputum cultures are showing ESBL E. coli patient was started on meropenem. Patient's ABGs consistent with the acidosis and both hypoxic as well as hypercapnic respiratory failure patient is presently on ventilator support. Assist control ventilation with PEEP of 10 have out of 90% set up respiratory rate of around 20 and tidal volume of 550. Patient is also numb nor- epinephrine. Patient is in septic shock. has very minimal urine output patient appears to have acute to the necrosis and patient has elevated creatinine of 2.15. Patient's potassium is elevated to 6.4 received Late has come down to 5.8. Patient is on the propofol sedation patient is also receiving systemic steroids. Atenolol and the Norvasc will be discontinued 12/10/2020 Patient remains on ventilator support with set up respiratory to for 30, tidal volume of 550, PEEP of 10 and FiO2 of 70% patient was on FiO2 of 100% yesterday. Patient remains on the propofol and Nimbex. Patient is off the levo fed. Remains on meropenem since the December 08. Constitutional: Denied any fatigue denied any fever. Cardio vascular: denied any chest pain, palpitations Gastrointestinal denied any nausea vomiting Pulmonary: As mentioned in the interval history Neurologic denied any new focal deficits All inpatient medications were reviewed and appropriate changes in these medications as dictated in the interval history and assessment and plan. Objective - Vital Signs Vital signs: Vital Signs Temp 97.5 F L 12/10/20 12:00 Pulse 69 12/10/20 12:00 Resp 30 H 12/10/20 12:00 BP 111/55 12/10/20 12:00 Pulse Ox 94 L 12/10/20 12:00 Intake & Output 12/09/20 12/10/20 12/10/20 18:59 06:59 18:59 Intake Total 4888.275 2840.783 1146.696 Output Total 225 245 425 Balance 4663.275 2595.783 721.696 Intake: IV 1361 1536 243 Sodium Chloride 0.9% 1, 1325 1500 225 000 ml @ 20 mls/hr IV . Q24H [facility] Rx#:[id number] pressure bag 36 36 18 Intake, IV Titration 3107.275 980.783 657.696 Amount Cisatracurium 200 mg In 59.279 86.287 Sodium Chloride 0.9% 180 ml @ 1 MCG/KG/MIN 6.94 mls/hr IV .Q24H [facility] Rx#: [id number] Dextrose 5% in Water 1, 160 000 ml @ 40 mls/hr IV . Q24H [facility] with Sodium Bicarb (1 Meq/ml) 150 ml Rx#:[id number] Meropenem 1 gm In Sodium 200 Chloride 0.9% 100 ml @ 33 .3 mls/hr IVPB Q8HR [facility] Rx#:[id number] Norepinephrine 4 mg In 347.996 434.246 152.846 Sodium Chloride 0.9% 250 ml @ 0.05 MCG/KG/MIN 22. 034 mls/hr IV .[id number] [facility] Rx#:[id number] Sodium Chloride 0.45% 1, 40 000 ml @ 40 mls/hr IV . Q24H [facility] with Sodium Bicarb (1 Meq/ml) 100 ml Rx#:[id number] Sodium Chloride 0.9% 1, 20 000 ml @ 20 mls/hr IV . Q24H [facility] Rx#:[id number] Sodium Chloride 0.9% 1, 1000 000 ml @ 999 mls/hr IV . Q1H1M [facility] Rx#:[id number] Sodium Chloride 0.9% 1, 1000 000 ml @ 999 mls/hr IV . Q1H1M [facility] Rx#:[id number] fentaNYL (PF). 1,000 mcg 100 84.914 In Sodium Chloride 0.9% 80 ml @ Per Protocol IV . Q0M [facility] Rx#:[id number] propofoL 1,000 mg In 400 460.250 199.936 Empty Bag 1 bag @ Titrate IV .Q0M [facility] Rx#: [id number] Tube Feeding 270 234 126 Other 150 90 120 Output: Urine 225 245 425 Other: Voiding Method Indwelling Catheter Indwelling Catheter Indwelling Catheter ABP, PAP, CO, CI - Last Documented Arterial Blood Pressure 110/44 - Exam PHYSICAL EXAMINATION: GENERAL: Patient is intubated sedated HEENT: Pupils are round and equally reacting to light. EOMI. No scleral icterus. No conjunctival pallor. Normocephalic, atraumatic. No pharyngeal erythema. No thyromegaly. CARDIOVASCULAR: S1 and S2 present. No murmurs, rubs, or gallops. PULMONARY: Chest is clear to auscultation, no wheezing or crackles. ABDOMEN: Soft, nontender, nondistended, normoactive bowel sounds. No palpable organomegaly. MUSCULOSKELETAL: No joint swelling or deformity. EXTREMITIES: No cyanosis, clubbing, or pedal edema. NEUROLOGICAL: Sedated. SKIN: No rashes. - Labs CBC & Chem 7: 12/10/20 03:20 12/10/20 03:20 Labs: Abnormal Lab Results - Last 24 Hours (Table) 12/09/20 12/09/20 12/09/20 Range/Units 10:11 14:00 15:34 WBC (3.8-10.6) k/uL RBC (4.30-5.90) m/uL Hgb (13.0-17.5) gm/dL Hct (39.0-53.0) % MCHC (31.0-37.0) g/dL Neutrophils # (1.3-7.7) k/uL Lymphocytes # (1.0-4.8) k/uL ABG pH 7.16 L* (7.35-7.45) ABG pCO2 58 H (35-45) mmHg ABG pO2 77 L (83-108) mmHg ABG HCO3 (21-25) mmol/L ABG O2 Saturation (94-97) % Potassium 5.8 H (3.5-5.1) mmol/L Chloride 112 H (98-107) mmol/L Carbon Dioxide 20 L (22-30) mmol/L BUN 60 H (9-20) mg/dL Creatinine 2.15 H (0.66-1.25) mg/dL Glucose 269 H (74-99) mg/dL POC Glucose (mg/dL) 241 H (75-99) mg/dL Calcium 7.3 L (8.4-10.2) mg/dL Total Protein (6.3-8.2) g/dL Albumin (3.5-5.0) g/dL 12/09/20 12/09/20 12/09/20 Range/Units 18:16 20:05 23:56 WBC (3.8-10.6) k/uL RBC (4.30-5.90) m/uL Hgb (13.0-17.5) gm/dL Hct (39.0-53.0) % MCHC (31.0-37.0) g/dL Neutrophils # (1.3-7.7) k/uL Lymphocytes # (1.0-4.8) k/uL ABG pH (7.35-7.45) ABG pCO2 (35-45) mmHg ABG pO2 (83-108) mmHg ABG HCO3 (21-25) mmol/L ABG O2 Saturation (94-97) % Potassium (3.5-5.1) mmol/L Chloride (98-107) mmol/L Carbon Dioxide (22-30) mmol/L BUN (9-20) mg/dL Creatinine (0.66-1.25) mg/dL Glucose (74-99) mg/dL POC Glucose (mg/dL) 215 H 184 H 217 H (75-99) mg/dL Calcium (8.4-10.2) mg/dL Total Protein (6.3-8.2) g/dL Albumin (3.5-5.0) g/dL 12/10/20 12/10/20 12/10/20 Range/Units 03:20 03:20 04:03 WBC 18.8 H (3.8-10.6) k/uL RBC 4.17 L (4.30-5.90) m/uL Hgb 11.9 L (13.0-17.5) gm/dL Hct 38.5 L (39.0-53.0) % MCHC 30.9 L (31.0-37.0) g/dL Neutrophils # 17.8 H (1.3-7.7) k/uL Lymphocytes # 0.2 L (1.0-4.8) k/uL ABG pH (7.35-7.45) ABG pCO2 (35-45) mmHg ABG pO2 (83-108) mmHg ABG HCO3 (21-25) mmol/L ABG O2 Saturation (94-97) % Potassium 5.9 H (3.5-5.1) mmol/L Chloride 112 H (98-107) mmol/L Carbon Dioxide 17 L (22-30) mmol/L BUN 65 H (9-20) mg/dL Creatinine 2.29 H (0.66-1.25) mg/dL Glucose 249 H (74-99) mg/dL POC Glucose (mg/dL) 227 H (75-99) mg/dL Calcium 7.3 L (8.4-10.2) mg/dL Total Protein 5.0 L (6.3-8.2) g/dL Albumin 2.5 L (3.5-5.0) g/dL 12/10/20 12/10/20 12/10/20 Range/Units 05:27 07:52 11:54 WBC (3.8-10.6) k/uL RBC (4.30-5.90) m/uL Hgb (13.0-17.5) gm/dL Hct (39.0-53.0) % MCHC (31.0-37.0) g/dL Neutrophils # (1.3-7.7) k/uL Lymphocytes # (1.0-4.8) k/uL ABG pH 7.14 L* (7.35-7.45) ABG pCO2 51 H (35-45) mmHg ABG pO2 70 L (83-108) mmHg ABG HCO3 17 L (21-25) mmol/L ABG O2 Saturation 91.7 L (94-97) % Potassium (3.5-5.1) mmol/L Chloride (98-107) mmol/L Carbon Dioxide (22-30) mmol/L BUN (9-20) mg/dL Creatinine (0.66-1.25) mg/dL Glucose (74-99) mg/dL POC Glucose (mg/dL) 255 H 248 H (75-99) mg/dL Calcium (8.4-10.2) mg/dL Total Protein (6.3-8.2) g/dL Albumin (3.5-5.0) g/dL Microbiology - Last 24 Hours (Table) 12/08/20 20:20 Gram Stain - Preliminary Sputum Sputum Culture - Preliminary Anamaria albicans 12/05/20 15:23 Blood Culture - Preliminary Blood No Growth after 96 hours 12/04/20 14:19 Blood Culture - Preliminary Blood No Growth after 120 hours 12/04/20 14:19 Blood Culture - Preliminary Blood No Growth after 120 hours 12/06/20 04:15 Gram Stain - Final Sputum Sputum Culture - Final Escherichia coli Assessment and Plan Plan: 1 septic shock: Patient probably has a secondary bacterial pneumonia, patient's (a positive for E. coli which is ESBL E. coli patient is presently on meropenem. Shock improved patient is off pressor support as mentioned above patient is on ventilatory support. Patient most probably has a post Covid bacterial pneumonia. COVID-19 PCR is negative on this hospitalization, pulmonary and infectious disease are following the patient. -Acute hypoxic respiratory failure secondary to septic shock patient is presently on norepinephrine -Hyperkalemia secondary to acute renal failure -Acute renal failure secondary to acute tubular necrosis from septic shock, nephrology will be consulted -Hypovolemic hyponatremia: Improved with IV fluids -elevated d-dimer secondary to pneumonia . -Acute on chronic hypoxic respiratory failure secondary to pneumonia. -History of asbestosis -Chronic kidney disease stage II to 3. Probable diabetic nephropathy --History of DVT in the past -Type 2 diabetes mellitus: Uncontrolled elevated blood sugars patient's long- acting insulin dose will be increased. -Hypertension -Sleep apnea -Diabetic peripheral neuropathy -DVT prophylaxis with subcutaneous heparin
--- NOTE | 2020-12-10 13:21 | CONS ---
CONSULTATION REASON FOR CONSULT: Renal failure. HISTORY OF PRESENT ILLNESS: Patient is a 70-year-old male who was admitted to the hospital with complaints of shortness of breath and was found to be hypoxic with O2 sats in the 78% range. Patient was recently diagnosed with COVID pneumonia and was discharged home and he comes back with bilateral lung infiltrates. These infiltrates are slightly better than on his previous admission. The patient's urine output has been on the lower side at about 20- 25 mL an hour. His potassium has been elevated at 5.5 to 5.9 mEq/L. This morning, patient received IV Lasix and his output has improved to about 200-100 mL for the last couple of hours. Blood pressure has been borderline, not significantly low. Serum creatinine was 2.29 mg/dL today. On initial admission it on around 1.38 and has progressively increased. PAST MEDICAL HISTORY: Hypertension, recent Covid pneumonia, type 2 diabetes, history of DVT, asthma, obstructive sleep apnea, cardiac dysrhythmia, hiatal hernia, hemorrhoids, neuropathy, anemia, asbestosis. 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 SOCIAL HISTORY: The patient is a former smoker. No history of drug abuse or alcohol abuse. MEDICATIONS: Medications prior to admission included Neurontin, insulin, Tenormin, vitamin D, Protonix, zinc, Norvasc. ALLERGIES: Include VENTOLIN, NORCO, VANCOMYCIN CAUSES NAUSEA AND VOMITING. PHYSICAL EXAMINATION: Patient is currently sedated. He is on the vent. Blood pressure was 117/52, heart rate 68 per minute. He is afebrile. Examination of the heart S1, S2. Examination of the lungs, bilateral breath sounds are heard. Abdomen is soft, nontender. Examination of lower extremities shows edema 1+ bilaterally. [employer] exam cannot be performed. LAB: Show sodium 138, potassium 5.9, chloride 112, CO2 is 17, BUN 65, creatinine 2.29, hemoglobin 11.9 g/dL. ASSESSMENT: 1. Acute kidney, acute kidney injury, acute tubular necrosis, currently nonoliguric secondary to underlying infection with possible element of hypoperfusion currently. Patient's urine output has increased, status post Lasix. I will repeat another dose of IV Lasix later on today. He is mildly volume overloaded as well and his FiO2 was recently increased. Agree with decreasing IV fluids for now. 2. Hyperkalemia associated with acute kidney injury, metabolic acidosis and hyperglycemia. Will change bicarb drip to a base of half-normal saline rather than D5W to help with the hyperglycemia. 3. Metabolic acidosis associated with acute kidney injury. Currently maintained on a bicarb drip. 4. Vent dependent respiratory failure secondary to pneumonia with recent Covid pneumonia currently sputum cultures growing Escherichia coli. 5. Acute hypoxic respiratory failure currently on the vent. PLAN: Change IV fluids. Change IV bicarb to half-normal saline with 2 amps of bicarb. Increase the insulin to control the hyperglycemia. Repeat another dose of IV Lasix. Avoid any nephrotoxic agents and repeat labs in a.m. Minimize IV fluids. Add oral sodium bicarb. Thank you for this consultation. We will continue to follow the patient with you during his hospitalization. MMODL / IJN: [id number] /
[2020-12-10 15:18] LABS: Potassium 5.4 mmol/L (3.5-5.1)
[2020-12-10 15:50] LABS: Glucose,Whole Blood 221 mg/dL (75-99)
[2020-12-10] MEDS ORDERED: FUROSEMIDE 10 MG/ML 4 ML VIAL IV ONE (16:00)
[2020-12-10 20:24] LABS: Glucose,Whole Blood 206 mg/dL (75-99)
[2020-12-10] MEDS: INSULIN DETEMIR (LEVEMIR) 100 UNIT/ML SYR SQ SCH (20:25)
[2020-12-10] MEDS: SODIUM BICARBONATE TAB 650 MG TAB PO SCH (20:29)
--- NOTE | 2020-12-10 21:29 | PN ---
PROGRESS NOTE DATE OF SERVICE: 12/10/2020 REASON FOR FOLLOWUP: Pneumonia. INTERVAL HISTORY: The patient is currently afebrile. The patient is hemodynamically stable and off pressor support. No significant purulent secretions through the ET reported by nursing staff or any diarrhea. PHYSICAL EXAMINATION: Blood pressure 114/49, pulse of 67, temperature 97.5. He is 91% on 55% FiO2. General description is an elderly male intubated on the vent. Respiratory system: Unlabored breathing, decreased breath sounds at the base, no wheeze. Heart S1, S2. Regular rate and rhythm. Abdomen soft, no tenderness. Extremities: No edema of the feet. LABS: Hemoglobin 9.8, white count 18.8, BUN of 55, creatinine is 2.29. Repeat sputum showing Anamaria albicans. DIAGNOSTIC IMPRESSION AND PLAN: Patient with acute respiratory failure which is multifactorial in this patient who had a component of pneumonia, possible ( ). Sputum initially was ESBL for which we will keep the patient on the meropenem while waiting for his condition to stabilize. Family was at the bedside. Their questions and concerns were answered. MMODL / IJN: [id number] /
[2020-12-10 23:51] LABS: Glucose,Whole Blood 218 mg/dL (75-99)
[2020-12-11] MEDS: INSULIN ASPART (NovoLOG) 100 UNIT/ML VIAL SQ SCH ×8 (00:15→21:00)
[2020-12-11] MEDS: fentaNYL (PF). 1,000 MCG in SODIUM CHLORIDE 0.9% 80 ML IV SCH ×2 (01:18→12:56)
[2020-12-11] MEDS: CISATRACURIUM 200 MG in SODIUM CHLORIDE 0.9% 180 ML IV SCH (01:50)
[2020-12-11 04:05] LABS: Glucose,Whole Blood 241 mg/dL (75-99)
[2020-12-11 04:12] LABS: ABG Base Excess -9.3 mmol/L; ABG HCO3 19 mmol/L (21-25); ABG Oxygen Saturation 89.1 % (94-97); ABG PCO2 51 mmHg (35-45); ABG PO2 64 mmHg (83-108); ABG TCO2 21 mmol/L (19-24); Allen Test Performed? Yes
[2020-12-11 04:13] LABS: Basophils # (A) 0.1 k/uL (0-0.2); Basophils % (A) 1 %; Eosinophils # (A) 0.1 k/uL (0-0.7); Eosinophils % (A) 0 %; HCT 36.8 % (39.0-53.0); HGB 12.2 gm/dL (13.0-17.5); Lymphocytes # (A) 0.2 k/uL (1.0-4.8); Lymphocytes % (A) 2 %; MCH 29.7 pg (25.0-35.0); MCV 90.1 fL (80.0-100.0); Mean Platelet Volume 7.5; Monocytes # (A) 0.5 k/uL (0-1.0); Monocytes % (A) 4 %; Neutrophils # (A) 12.1 k/uL (1.3-7.7); Neutrophils % (A) 93 %; Platelet Count 220 k/uL (150-450); RBC 4.09 m/uL (4.30-5.90); RDW 14.2 % (11.5-15.5)
[2020-12-11 04:14] LABS: ABG PH 7.18 (7.35-7.45)
[2020-12-11 04:26] LABS: Albumin 2.5 g/dL (3.5-5.0); Calcium 7.4 mg/dL (8.4-10.2); Total Bilirubin 0.4 mg/dL (0.2-1.3); Total Protein 4.9 g/dL (6.3-8.2)
[2020-12-11 04:37] LABS: Potassium 6.1 mmol/L (3.5-5.1)
[2020-12-11] MEDS ORDERED: INSULIN REGULAR 100 UNIT/ML VIAL IV ONE ×2 (05:39→23:26)
[2020-12-11] MEDS: SYMBICORT 160-4.5 MCG INHALER INHALATION SCH ×2 (07:24→21:05)
[2020-12-11] MEDS: ALBUTEROL HFA INHALER INHALATION PRN ×4 (07:24→21:04)
--- NOTE | 2020-12-11 07:52 | XR ---
EXAMINATION TYPE: XR chest 1V portable DATE OF EXAM: 12/11/2020 COMPARISON: Chest x-ray 12/10/2020 HISTORY: Intubated TECHNIQUE: Single frontal view of the chest is obtained. FINDINGS: Endotracheal tube and orogastric tube are overlying appropriate positions, there is a righ t jugular central venous catheter. Linear pleural calcification is again noted, there are overlying l tawana. There is no evident pneumothorax or pleural effusion. Bilateral patchy airspace disease persist s. Cardiac mediastinal silhouette shows an enlarged heart. IMPRESSION: There is not a significant interval change. Correlate for pneumonia, edema, ARDS
[2020-12-11 08:17] LABS: Glucose,Whole Blood 232 mg/dL (75-99)
[2020-12-11] MEDS: methylPREDNISolone SOD SUCCI 40 MG/ML 1 ML VIAL IV SCH ×2 (08:24→22:01)
[2020-12-11] MEDS: ENOXAPARIN 30 MG/0.3 ML SYRINGE SQ SCH ×2 (08:24→22:00)
[2020-12-11] MEDS: PANTOPRAZOLE 40 MG/10 ML VIAL IVP SCH (08:24)
[2020-12-11] MEDS: CHLORHEXIDINE GLUCONATE 15 ML CUP MUCOUS MEM SCH ×2 (08:24→22:00)
[2020-12-11] MEDS: MEROPENEM 1 GM in SODIUM CHLORIDE 0.9% 100 ML IVPB SCH ×2 (08:24→22:01)
[2020-12-11] MEDS: ZINC SULFATE 220 MG CAP PO SCH (08:25)
[2020-12-11] MEDS: GABAPENTIN 300 MG CAP PO SCH (08:25)
[2020-12-11] MEDS: SODIUM BICARBONATE TAB 650 MG TAB PO SCH ×2 (08:25→22:00)
[2020-12-11] MEDS: CHOLECALCIFEROL 25 MCG (1000 IU) TABLET PO SCH (08:25)
[2020-12-11] MEDS: atenoloL 25 MG TAB PO SCH (08:25)
[2020-12-11] MEDS ORDERED: FUROSEMIDE 10 MG/ML 10 ML VIAL IV STA (10:11)
--- NOTE | 2020-12-11 10:53 | P.PN ---
Subjective Progress Note Date: 12/11/20 (Critical care time spent 35 minutes) Principal diagnosis: Acute kidney injury Fluid overload Acute on chronic hypoxic respiratory failure with worsening status septic shock Bilateral gram-negative pneumonia due to ESBL E. coli Acute kidney injury Hyperkalemia Uncontrolled diabetes and hyperglycemia Pulmonary fibrosis due to prior extensive COVID-19 pneumonia Sepsis and fever of unknown region Generalized weakness and medical debility Asbestosis lung Advanced diabetes mellitus with hyperglycemia Chronic kidney disease stage III 12/11/2020, patient seen eval reexamined during the rounds labs reviewed medications reviewed care plan discussed, respiratory status the remains marginal however patient started desaturating earlier this morning has a significant amount of respiratory and metabolic acidosis as well, patient has been +3 L in the last 24 hours, discussed with the renal service about increasing diuretics or possibly starting on bicarb drip, renal function however remains stable, patient is sedated and medically paralyzed with fentanyl propofol Nimbex, discussed with staff about lowering down propofol drip to 30-40 mics, chest x-ray from today reviewed consistent with fluid overload fluid appears to be tracking into right major fissure, overall not much change from previous x-ray, patient remains on ventilator setting current setting includes assist control rate of 30, tidal volume of 550, FiO2 increase from 60% to 70%, sugars elevated have been on sliding scale, patient is tolerating tube feed fairly well, patient also noted to have progressive developing anasarca, noted labs white cell count continue to go down to 13,000, arterial blood gas continued magnificent respiratory and metabolic acidosis, significant component of diffusion impairment, hyperkalemia with potassium was 6.1, 12/10/2020, patient seen eval examined in the ICU, he remains intubated and medically sedated and paralyzed on the propofol, name backs and fentanyl drip, levo fed is now came off after fluid boluses, patient has significant metabolic acidosis due to multifactorial processes including acute kidney injury pneumonia and the vasopressors, patient has been on bicarb drip, being adjusted, to feed is in process, hemodynamic status is slightly better, FiO2 is started down to 70%, underwent setting includes assist control rate of 30 to volume of 550 10 of PEEP, arterial blood gases reviewed pH 7.14 pCO2 51 patient was given 1 amp of bicarb with the bicarb drip white cell count is down to 18,800, hemodynamic status slightly stable than before, overall plan is to continue to come down oxygen monitor renal functions closely monitor hyperkalemia, repeat chemistry pending for later on today 12/09/2020, patient seen eval examined continued to have marginal hemodynamics and respiratory status, patient sedated medically paralyzed with Nimbex drip, propofol, fentanyl drip, arterial blood gases done this morning reveal severe metabolic and respiratory acidosis ventilator have been adjusted now new ventricular setting includes assist control rate of 30 to volume of 550 PEEP remains 10 oxygen is down to 90%, patient now on levo fed, we'll try to taper down the levo fed by giving fluids S patient is volume depleted as well and lowering down propofol aim to bring down propofol to 30-40 mics in next 24 hours, fluid will be given 100 mL an hour continuous with fluid boluses boluses of 500 mL/h for 2 hours, patient remains on meropenem, potassium noted to be elevated to 6.4, BUN/creatinine slightly up to 55 1.8, we'll give Kayexalate 2 doses, repeat BMP later on today 12/08/2020, patient seen eval examined during the rounds labs reviewed me dications reviewed, critical care time spent 45 minutes, patient developed progressive increased respiratory distress was transferred to the ICU was intubated for respiratory distress, patient has dense bilateral infiltrate, sputum is positive for gram-negative rods, patient is hypotensive requiring fluid boluses likely will required vasopressors as well, for agitation has been placed on propofol for now has been on 75 need to be paralyzed, patient has been also started on fentanyl drip, patient has been on Cefepime for gram-negative pneumonia, final sputum culture have been pending, patient currently on full ventilator support with 100% oxygen and 10 of PEEP, rate is 26, breathing about 28-30, volume is 500, peak pressure in low 30s, blood pressure after the boluses 100/40, respiratory rate is 32, heart rate 81 temperature sats are 91%, 1 cell count is up to 23,000 hemoglobin is stable 14, d-dimer continue to go up 3.97, arterial blood gases revealed pH of 7.24 pCO2 58-year-old O2 of 80 8/2 an hour after on above ventilator setting, potentially was 5.5, BUN/creatinine 45 1.37, patient has a elevated inflammatory parameters including ferritin in 631, LDH is 1658 C-reactive protein 15.9 patient will need a central line, we will sedate and medically paralyzed, will start tube feed, monitor labs closely, patient will be started on Lovenox 30 mg subcu every 12 12/06/2020, patient seen eval reexamined labs reviewed medications reviewed care plan discussed, respiratory status remains marginal denies any chest pain, however more hypoxic currently on 15 L high flow oxygen, remains afebrile hemodynamically stable, oxygen saturation is 93%, check urgent pro-calcitonin as well as d-dimer, if d-dimer is elevated consider doing a VQ scan and duplex ultrasound lower extremity, we will also check an echocardiogram This is a 70-year-old male well-known to me patient has a severe diabetes mellitus and chronic kidney disease as baseline, 2 months ago patient was admitted to hospital with acute COVID-19 pneumonia and respiratory failure patient was on 100% oxygen and BiPAP but however successfully tapered down up to 4 L nasal cannula was discharged home patient did not came back for follow-up, for the last few days has been spiking fever more short of breath oxygen in increase to 5 L nasal cannula came into the hospital for further evaluation chest x-ray not much change his code went testing is negative, patient has been vaccinated for COVID-19 his most recent chest x-ray continued to show cardiomegaly chronic changes, no particular significant change from prior x-rays, patient does have a history of asbestosis lung however Objective - Vital Signs Vital signs: Vital Signs Temp 96.2 F L 12/11/20 08:00 Pulse 67 12/11/20 10:00 Resp 30 H 12/11/20 10:00 BP 119/53 12/11/20 10:00 Pulse Ox 93 L 12/11/20 10:00 Intake & Output 12/10/20 12/11/20 12/11/20 18:59 06:59 18:59 Intake Total 2151.222 1557.545 563.892 Output Total 620 310 90 Balance 3496.518 1154.545 473.892 Weight 115.666 kg Intake: IV 404 253 92 Sodium Chloride 0.9% 1, 365 220 80 000 ml @ 20 mls/hr IV . Q24H [facility] Rx#:[id number] pressure bag 39 33 12 Intake, IV Titration 2920.625 3918.545 441.892 Amount Cisatracurium 200 mg In 191.313 Sodium Chloride 0.9% 180 ml @ 1 MCG/KG/MIN 6.94 mls/hr IV .Q24H [facility] Rx#: [id number] Dextrose 5% in Water 1, 160 000 ml @ 40 mls/hr IV . Q24H [facility] with Sodium Bicarb (1 Meq/ml) 150 ml Rx#:[id number] Meropenem 1 gm In Sodium 100 100 Chloride 0.9% 100 ml @ 33 .3 mls/hr IVPB Q8HR [facility] Rx#:[id number] Norepinephrine 4 mg In 152.846 Sodium Chloride 0.9% 250 ml @ 0.05 MCG/KG/MIN 22. 034 mls/hr IV .[id number] [facility] Rx#:[id number] Sodium Chloride 0.45% 1, 320 400 160 000 ml @ 40 mls/hr IV . Q24H [facility] with Sodium Bicarb (1 Meq/ml) 100 ml Rx#:[id number] Sodium Chloride 0.9% 1, 20 000 ml @ 20 mls/hr IV . Q24H [facility] Rx#:[id number] fentaNYL (PF). 1,000 mcg 84.914 100 In Sodium Chloride 0.9% 80 ml @ Per Protocol IV . Q0M [facility] Rx#:[id number] propofoL 1,000 mg In 489.462 Empty Bag 1 bag @ Titrate IV .Q0M [facility] Rx#: [id number] propofoL 1,000 mg In 358.232 181.892 Empty Bag 1 bag @ Titrate IV .Q0M [facility] Rx#: [id number] Tube Feeding 270 165 30 Other 150 90 Output: Urine 620 310 90 Other: Voiding Method Indwelling Catheter Indwelling Catheter ABP, PAP, CO, CI - Last Documented Arterial Blood Pressure 102/41 - Exam - Constitutional General appearance: sedated on full ventilator support - Neck Neck: normal ROM Carotids: bilateral: upstroke normal Thyroid: bilateral: normal size - Respiratory Respiratory: bilateral: diminished, rales - Cardiovascular Rhythm: regular Heart sounds: normal: S1, S2 - Gastrointestinal General gastrointestinal: soft - Integumentary Integumentary: normal turgor - Neurologic Neurologic: CNII-XII intact - Musculoskeletal Musculoskeletal: gait normal, generalized weakness, strength equal bilaterally - Psychiatric Psychiatric: sedated on full ventilator support - Labs CBC & Chem 7: 12/11/20 04:00 12/11/20 04:00 Labs: Abnormal Lab Results - Last 24 Hours (Table) 12/10/20 12/10/20 12/10/20 Range/Units 11:54 14:15 15:48 WBC (3.8-10.6) k/uL RBC (4.30-5.90) m/uL Hgb (13.0-17.5) gm/dL Hct (39.0-53.0) % Neutrophils # (1.3-7.7) k/uL Lymphocytes # (1.0-4.8) k/uL ABG pH (7.35-7.45) ABG pCO2 (35-45) mmHg ABG pO2 (83-108) mmHg ABG HCO3 (21-25) mmol/L ABG O2 Saturation (94-97) % Sodium (137-145) mmol/L Potassium 5.4 H (3.5-5.1) mmol/L Chloride 113 H (98-107) mmol/L Carbon Dioxide 18 L (22-30) mmol/L BUN (9-20) mg/dL Creatinine (0.66-1.25) mg/dL Glucose (74-99) mg/dL POC Glucose (mg/dL) 248 H 221 H (75-99) mg/dL Calcium (8.4-10.2) mg/dL Total Protein (6.3-8.2) g/dL Albumin (3.5-5.0) g/dL 12/10/20 12/10/20 12/11/20 Range/Units 20:23 23:49 04:00 WBC 13.0 H (3.8-10.6) k/uL RBC 4.09 L (4.30-5.90) m/uL Hgb 12.2 L (13.0-17.5) gm/dL Hct 36.8 L (39.0-53.0) % Neutrophils # 12.1 H (1.3-7.7) k/uL Lymphocytes # 0.2 L (1.0-4.8) k/uL ABG pH (7.35-7.45) ABG pCO2 (35-45) mmHg ABG pO2 (83-108) mmHg ABG HCO3 (21-25) mmol/L ABG O2 Saturation (94-97) % Sodium (137-145) mmol/L Potassium (3.5-5.1) mmol/L Chloride (98-107) mmol/L Carbon Dioxide (22-30) mmol/L BUN (9-20) mg/dL Creatinine (0.66-1.25) mg/dL Glucose (74-99) mg/dL POC Glucose (mg/dL) 206 H 218 H (75-99) mg/dL Calcium (8.4-10.2) mg/dL Total Protein (6.3-8.2) g/dL Albumin (3.5-5.0) g/dL 12/11/20 12/11/20 12/11/20 Range/Units 04:00 04:02 04:06 WBC (3.8-10.6) k/uL RBC (4.30-5.90) m/uL Hgb (13.0-17.5) gm/dL Hct (39.0-53.0) % Neutrophils # (1.3-7.7) k/uL Lymphocytes # (1.0-4.8) k/uL ABG pH 7.18 L* (7.35-7.45) ABG pCO2 51 H (35-45) mmHg ABG pO2 64 L (83-108) mmHg ABG HCO3 19 L (21-25) mmol/L ABG O2 Saturation 89.1 L (94-97) % Sodium 136 L (137-145) mmol/L Potassium 6.1 H* (3.5-5.1) mmol/L Chloride 112 H (98-107) mmol/L Carbon Dioxide 20 L (22-30) mmol/L BUN 83 H (9-20) mg/dL Creatinine 2.20 H (0.66-1.25) mg/dL Glucose 225 H (74-99) mg/dL POC Glucose (mg/dL) 241 H (75-99) mg/dL Calcium 7.4 L (8.4-10.2) mg/dL Total Protein 4.9 L (6.3-8.2) g/dL Albumin 2.5 L (3.5-5.0) g/dL 12/11/20 Range/Units 08:16 WBC (3.8-10.6) k/uL RBC (4.30-5.90) m/uL Hgb (13.0-17.5) gm/dL Hct (39.0-53.0) % Neutrophils # (1.3-7.7) k/uL Lymphocytes # (1.0-4.8) k/uL ABG pH (7.35-7.45) ABG pCO2 (35-45) mmHg ABG pO2 (83-108) mmHg ABG HCO3 (21-25) mmol/L ABG O2 Saturation (94-97) % Sodium (137-145) mmol/L Potassium (3.5-5.1) mmol/L Chloride (98-107) mmol/L Carbon Dioxide (22-30) mmol/L BUN (9-20) mg/dL Creatinine (0.66-1.25) mg/dL Glucose (74-99) mg/dL POC Glucose (mg/dL) 232 H (75-99) mg/dL Calcium (8.4-10.2) mg/dL Total Protein (6.3-8.2) g/dL Albumin (3.5-5.0) g/dL Microbiology - Last 24 Hours (Table) 12/08/20 20:20 Gram Stain - Preliminary Sputum Sputum Culture - Preliminary Anamaria albicans 12/05/20 15:23 Blood Culture - Preliminary Blood No Growth after 120 hours 12/04/20 14:19 Blood Culture - Final Blood No Growth after 144 hours 12/04/20 14:19 Blood Culture - Final Blood No Growth after 144 hours Assessment and Plan Assessment: gram-negative pneumonia due to ESBL E. coli Severe sepsis and septic shock due to gram-negative pneumonia Acute on chronic hypoxic and hypercapnic respiratory failure Developing progressive right-sided pleural effusion Acute kidney injury hyperkalemia Metabolic and respiratory acidosis Uncontrolled diabetes Pulmonary fibrosis due to extensive recentCOVID-19 pneumonia Asbestosis lung Advanced diabetes mellitus with hyperglycemia Chronic kidney disease stage III Plan: Bicarb 1 amp alert by bicarb drip Status post Kayexalate IV fluid boluses and increase fluid to IV 100 mL an hour ventilator adjustment status post central line Lovenox 30 mg subcu every 12 tube feed as per protocol Labs chest x-ray and ABG in the morning Plan to sedate and medically paralyzed with propofol, fentanyl, Nimbex, titrated propofol down to 30-40 mics in next 24 hours Vasopressors as needed Fluid boluses as needed Follow-up on [place] cultures including sputum urine and blood continue antibiotics IV steroids Continue supplemental oxygen Deep breathing exercise incentive spirometry Time with Patient: Greater than 30
[2020-12-11 11:20] LABS: Glucose,Whole Blood 253 mg/dL (75-99)
[2020-12-11] MEDS: SODIUM CHLORIDE 0.45% 1,000 ML with SODIUM BICARB (1 MEQ/ML) 100 ML IV SCH ×2 (12:56)
--- NOTE | 2020-12-11 13:06 | P.PN ---
Subjective Patient is being treated for secondary bacterial pneumonia and he was recently discharged after he was treated for Covid 19. 8. Patient is a pleasant 70-year-old male came in with the complaints of shortness of breath on 4 L of oxygen and oxygen saturation is going down to 78%. Patient is comparing of cough with yellowish sputum production. Patient was having high-grade fevers patient denied any dysuria patient denied nausea vomiting. Patient was discharged from the hospital after 3 week treatment for Covid 19 patient was discharged earlier this month. Patient came back positive again on of this month patient did receive both Covid vaccines. Patient's creatinine at the time of discharge is around 1.3 presently around 1.3. Patient is bit hyponatremic. Patient at a chest x-ray which is showing bilateral infiltrates consistent with Covid 19, although infiltrates are mildly better compared to the previous x-rays. 12/05/2020 Patient continues to have fevers is pretty status appears to have worsened a bit and patient is an 5 L of oxygen is still bit hypoxic and patient is in mild respiratory distress. Patient is being treated for secondary bacterial pneumonia. Repeat Covid 19 PCR is negative now. Patient blood sugars are well controlled. Dec 09 2020 Patient respiratory status worsened patient went into septic shock was subsequently transferred to intensive care unit with sputum cultures are showing ESBL E. coli patient was started on meropenem. Patient's ABGs consistent with the acidosis and both hypoxic as well as hypercapnic respiratory failure patient is presently on ventilator support. Assist control ventilation with PEEP of 10 have out of 90% set up respiratory rate of around 20 and tidal volume of 550. Patient is also numb nor- epinephrine. Patient is in septic shock. has very minimal urine output patient appears to have acute to the necrosis and patient has elevated creatinine of 2.15. Patient's potassium is elevated to 6.4 received Late has come down to 5.8. Patient is on the propofol sedation patient is also receiving systemic steroids. Atenolol and the Norvasc will be discontinued 12/10/2020 Patient remains on ventilator support with set up respiratory to for 30, tidal volume of 550, PEEP of 10 and FiO2 of 70% patient was on FiO2 of 100% yesterday. Patient remains on the propofol and Nimbex. Patient is off the levo fed. Remains on meropenem since the December 08. 12/11/2020 Patient remains acidotic with hypercapnia, respiratory is doses. Patient remai ns on the same and settings as yesterday. Patient is hypokalemic nephrology is managing this. Patient creatinine remained stable at 2.2. Patient's blood sugars are high will add short-acting insulin every 6 hours patient is receiving OG tube feedings, Nepro. Patient is back on norepinephrine. His leukocytosis although can you to improve Review of systems: Unable to obtain due to his clinical condition All inpatient medications were reviewed and appropriate changes in these medications as dictated in the interval history and assessment and plan. Objective - Vital Signs Vital signs: Vital Signs Temp 96.2 F L 12/11/20 08:00 Pulse 66 12/11/20 11:00 Resp 20 12/11/20 11:00 BP 112/53 12/11/20 11:00 Pulse Ox 94 L 12/11/20 11:00 Intake & Output 12/10/20 12/11/20 12/11/20 18:59 06:59 18:59 Intake Total 2151.222 1557.545 731.168 Output Total 620 310 90 Balance 5878.665 9274.545 641.168 Weight 115.666 kg Intake: IV 404 253 92 Sodium Chloride 0.9% 1, 365 220 80 000 ml @ 20 mls/hr IV . Q24H [facility] Rx#:[id number] pressure bag 39 33 12 Intake, IV Titration 2295.406 4471.545 609.168 Amount Cisatracurium 200 mg In 191.313 Sodium Chloride 0.9% 180 ml @ 1 MCG/KG/MIN 6.94 mls/hr IV .Q24H [facility] Rx#: [id number] Dextrose 5% in Water 1, 160 000 ml @ 40 mls/hr IV . Q24H [facility] with Sodium Bicarb (1 Meq/ml) 150 ml Rx#:[id number] Meropenem 1 gm In Sodium 100 100 Chloride 0.9% 100 ml @ 33 .3 mls/hr IVPB Q8HR [facility] Rx#:[id number] Norepinephrine 4 mg In 152.846 Sodium Chloride 0.9% 250 ml @ 0.05 MCG/KG/MIN 22. 034 mls/hr IV .[id number] [facility] Rx#:[id number] Sodium Chloride 0.45% 1, 320 400 160 000 ml @ 40 mls/hr IV . Q24H [facility] with Sodium Bicarb (1 Meq/ml) 100 ml Rx#:[id number] Sodium Chloride 0.9% 1, 20 000 ml @ 20 mls/hr IV . Q24H [facility] Rx#:[id number] fentaNYL (PF). 1,000 mcg 84.914 100 67.276 In Sodium Chloride 0.9% 80 ml @ Per Protocol IV . Q0M [facility] Rx#:[id number] propofoL 1,000 mg In 489.462 Empty Bag 1 bag @ Titrate IV .Q0M [facility] Rx#: [id number] propofoL 1,000 mg In 358.232 281.892 Empty Bag 1 bag @ Titrate IV .Q0M [facility] Rx#: [id number] Tube Feeding 270 165 30 Other 150 90 Output: Urine 620 310 90 Other: Voiding Method Indwelling Catheter Indwelling Catheter Indwelling Catheter ABP, PAP, CO, CI - Last Documented Arterial Blood Pressure 104/42 - Exam PHYSICAL EXAMINATION: GENERAL: Patient is intubated sedated HEENT: Pupils are round and equally reacting to light. EOMI. No scleral icterus. No conjunctival pallor. Normocephalic, atraumatic. No pharyngeal erythema. No thyromegaly. CARDIOVASCULAR: S1 and S2 present. No murmurs, rubs, or gallops. PULMONARY: Chest is clear to auscultation, no wheezing or crackles. ABDOMEN: Soft, nontender, nondistended, normoactive bowel sounds. No palpable organomegaly. MUSCULOSKELETAL: No joint swelling or deformity. EXTREMITIES: No cyanosis, clubbing, or pedal edema. NEUROLOGICAL: Sedated. SKIN: No rashes. - Labs CBC & Chem 7: 12/11/20 04:00 12/11/20 04:00 Labs: Abnormal Lab Results - Last 24 Hours (Table) 12/10/20 12/10/20 12/10/20 Range/Units 14:15 15:48 20:23 WBC (3.8-10.6) k/uL RBC (4.30-5.90) m/uL Hgb (13.0-17.5) gm/dL Hct (39.0-53.0) % Neutrophils # (1.3-7.7) k/uL Lymphocytes # (1.0-4.8) k/uL ABG pH (7.35-7.45) ABG pCO2 (35-45) mmHg ABG pO2 (83-108) mmHg ABG HCO3 (21-25) mmol/L ABG O2 Saturation (94-97) % Sodium (137-145) mmol/L Potassium 5.4 H (3.5-5.1) mmol/L Chloride 113 H (98-107) mmol/L Carbon Dioxide 18 L (22-30) mmol/L BUN (9-20) mg/dL Creatinine (0.66-1.25) mg/dL Glucose (74-99) mg/dL POC Glucose (mg/dL) 221 H 206 H (75-99) mg/dL Calcium (8.4-10.2) mg/dL Total Protein (6.3-8.2) g/dL Albumin (3.5-5.0) g/dL 12/10/20 12/11/20 12/11/20 Range/Units 23:49 04:00 04:00 WBC 13.0 H (3.8-10.6) k/uL RBC 4.09 L (4.30-5.90) m/uL Hgb 12.2 L (13.0-17.5) gm/dL Hct 36.8 L (39.0-53.0) % Neutrophils # 12.1 H (1.3-7.7) k/uL Lymphocytes # 0.2 L (1.0-4.8) k/uL ABG pH (7.35-7.45) ABG pCO2 (35-45) mmHg ABG pO2 (83-108) mmHg ABG HCO3 (21-25) mmol/L ABG O2 Saturation (94-97) % Sodium 136 L (137-145) mmol/L Potassium 6.1 H* (3.5-5.1) mmol/L Chloride 112 H (98-107) mmol/L Carbon Dioxide 20 L (22-30) mmol/L BUN 83 H (9-20) mg/dL Creatinine 2.20 H (0.66-1.25) mg/dL Glucose 225 H (74-99) mg/dL POC Glucose (mg/dL) 218 H (75-99) mg/dL Calcium 7.4 L (8.4-10.2) mg/dL Total Protein 4.9 L (6.3-8.2) g/dL Albumin 2.5 L (3.5-5.0) g/dL 12/11/20 12/11/20 12/11/20 Range/Units 04:02 04:06 08:16 WBC (3.8-10.6) k/uL RBC (4.30-5.90) m/uL Hgb (13.0-17.5) gm/dL Hct (39.0-53.0) % Neutrophils # (1.3-7.7) k/uL Lymphocytes # (1.0-4.8) k/uL ABG pH 7.18 L* (7.35-7.45) ABG pCO2 51 H (35-45) mmHg ABG pO2 64 L (83-108) mmHg ABG HCO3 19 L (21-25) mmol/L ABG O2 Saturation 89.1 L (94-97) % Sodium (137-145) mmol/L Potassium (3.5-5.1) mmol/L Chloride (98-107) mmol/L Carbon Dioxide (22-30) mmol/L BUN (9-20) mg/dL Creatinine (0.66-1.25) mg/dL Glucose (74-99) mg/dL POC Glucose (mg/dL) 241 H 232 H (75-99) mg/dL Calcium (8.4-10.2) mg/dL Total Protein (6.3-8.2) g/dL Albumin (3.5-5.0) g/dL 12/11/20 Range/Units 11:19 WBC (3.8-10.6) k/uL RBC (4.30-5.90) m/uL Hgb (13.0-17.5) gm/dL Hct (39.0-53.0) % Neutrophils # (1.3-7.7) k/uL Lymphocytes # (1.0-4.8) k/uL ABG pH (7.35-7.45) ABG pCO2 (35-45) mmHg ABG pO2 (83-108) mmHg ABG HCO3 (21-25) mmol/L ABG O2 Saturation (94-97) % Sodium (137-145) mmol/L Potassium (3.5-5.1) mmol/L Chloride (98-107) mmol/L Carbon Dioxide (22-30) mmol/L BUN (9-20) mg/dL Creatinine (0.66-1.25) mg/dL Glucose (74-99) mg/dL POC Glucose (mg/dL) 253 H (75-99) mg/dL Calcium (8.4-10.2) mg/dL Total Protein (6.3-8.2) g/dL Albumin (3.5-5.0) g/dL Microbiology - Last 24 Hours (Table) 12/08/20 20:20 Gram Stain - Preliminary Sputum Sputum Culture - Preliminary Anamaria albicans 12/05/20 15:23 Blood Culture - Preliminary Blood No Growth after 120 hours 12/04/20 14:19 Blood Culture - Final Blood No Growth after 144 hours 12/04/20 14:19 Blood Culture - Final Blood No Growth after 144 hours Assessment and Plan Plan: 1 septic shock: Patient probably has a secondary bacterial pneumonia, patient's (a positive for E. coli which is ESBL E. coli patient is presently on meropenem. Shock improved patient is onpressor support as mentioned above patient is on ventilatory support. Patient most probably has a post Covid bacterial pneumonia. COVID-19 PCR is negative on this hospitalization, pulmonary and infectious disease are following the patient. -Acute hypoxic respiratory failure secondary to septic shock patient is presently on norepinephrine -Hyperkalemia secondary to acute renal failure. Nephrology is following the patient management as per them -Acute renal failure secondary to acute tubular necrosis from septic shock, nephrology will be consulted -Hypovolemic hyponatremia: Improved with IV fluids -elevated d-dimer secondary to pneumonia . -Acute on chronic hypoxic respiratory failure secondary to pneumonia. -History of asbestosis -Chronic kidney disease stage II to 3. Probable diabetic nephropathy --History of DVT in the past -Type 2 diabetes mellitus: Uncontrolled elevated blood sugars, will add the short-acting insulin every 6 hours. -Hypertension -Sleep apnea -Diabetic peripheral neuropathy -DVT prophylaxis with subcutaneous heparin
--- NOTE | 2020-12-11 15:16 | PN ---
PROGRESS NOTE The patient is seen for followup for acute kidney injury. The patient has had hyperkalemia. He has also had high blood sugars. He currently remains on the vent. Urine output at about 20-25 mL an hour. The patient is maintained on bicarb drip at about 40 mL an hour. He is not hypotensive, not maintained on any pressors. IV insulin was given this morning for hyperkalemia with the potassium of 6.1 with a blood sugar of around 241. EXAMINATION: On examination today, blood pressure 112/53, heart rate 66 per minute, he is afebrile. Examination shows bilateral breath sounds are heard. Abdomen is soft, nontender. Examination of lower extremities shows edema 1+ bilaterally, upper and lower extremities. [employer] exam cannot be performed. LAB: Show sodium 136, potassium 6.1, chloride 112, CO2 is 20, BUN 83, creatinine 2.2, hemoglobin 12.2 g/dL. ASSESSMENT: 1. Acute kidney injury, ATN, associated with hypoperfusion and underlying infection. Urine output is borderline. I will repeat another dose of Lasix 60 mg IV x1 now. We will continue to minimize IV fluids. 2. Metabolic acidosis associated with acute kidney injury, maintained on bicarb drip at 40 mL an hour as well as oral sodium bicarb. 3. Hyperkalemia associated with acute kidney injury, metabolic acidosis and hyperglycemia. Expect improvement once urine output picks up. However, if the patient remains persistently hyperkalemic with poor urine output, he will need to be dialyzed. 4. Acute hypoxic respiratory failure currently on the vent. Etiology pneumonia with recent COVID pneumonia and sputum cultures growing Escherichia coli as well. 5. Volume overload. PLAN: Diurese patient. Repeat labs. Start Lasix drip if no significant urine output and if urine output remains low and patient remains hyperkalemic, he will need to be dialyzed. MMODL / IJN: [id number] /
[2020-12-11 16:03] LABS: Glucose,Whole Blood 224 mg/dL (75-99)
[2020-12-11] MEDS: SODIUM CHLORIDE 0.9% 1,000 ML IV SCH (16:15)
[2020-12-11] MEDS: FUROSEMIDE 100 MG in SODIUM CHLORIDE 0.9% 90 ML IV SCH (17:01)
[2020-12-11 18:24] LABS: Glucose,Whole Blood 250 mg/dL (75-99)
[2020-12-11 20:53] LABS: Glucose,Whole Blood 211 mg/dL (75-99)
[2020-12-11] MEDS: INSULIN DETEMIR (LEVEMIR) 100 UNIT/ML SYR SQ SCH (22:00)
--- NOTE | 2020-12-11 22:18 | PN ---
PROGRESS NOTE DATE OF SERVICE: 12/11/2020 REASON FOR FOLLOWUP: Pneumonia. INTERVAL HISTORY: The patient is currently afebrile. The patient is hemodynamically stable. The patient is intubated on the vent. FiO2 is currently 70%. No significant purulent secretions through the ET or diarrhea reported by the nursing staff. PHYSICAL EXAMINATION: Blood pressure 118/51 with a pulse of 70, temperature 97.8. He is 92% on 70% FiO2. General description is an elderly male lying in in no distress. Respiratory system: Unlabored breathing, decreased intensity of breath sounds. No wheeze. Heart S1, S2. Regular rate and rhythm. Abdomen soft. No tenderness. Extremities: No edema of the feet. LABS: showing Anamaria albicans. DIAGNOSTIC IMPRESSION AND PLAN: Patient with acute respiratory failure which is multifactorial in this patient who did have a component of pneumonia. Sputum was positive for ESBL E coli. Patient is covered with meropenem. White count showing a downward trend. Continue with current supportive treatment and monitor clinical course closely. MMODL / IJN: [id number] /
[2020-12-11 22:52] LABS: Glucose,Whole Blood 177 mg/dL (75-99)
[2020-12-11] MEDS ORDERED: DEXTROSE 50% SYRINGE 50 ML IVP STA (23:16)
[2020-12-11] MEDS ORDERED: INSULIN REGULAR 100 UNIT/ML VIAL SQ ONE (23:17)
[2020-12-12] MEDS: FUROSEMIDE 100 MG in SODIUM CHLORIDE 0.9% 90 ML IV SCH ×3 (00:18→20:05)
[2020-12-12] MEDS: INSULIN ASPART (NovoLOG) 100 UNIT/ML VIAL SQ SCH ×12 (00:30→23:32)
[2020-12-12 01:29] LABS: Glucose,Whole Blood 146 mg/dL (75-99)
[2020-12-12] MEDS: NOREPINEPHRINE 4 MG in SODIUM CHLORIDE 0.9% 250 ML IV SCH ×2 (03:16→13:43)
[2020-12-12] MEDS: CISATRACURIUM 200 MG in SODIUM CHLORIDE 0.9% 180 ML IV SCH (03:27)
[2020-12-12 04:04] LABS: Basophils # (A) 0.1 k/uL (0-0.2); Basophils % (A) 1 %; Eosinophils % (A) 0 %; HCT 35.7 % (39.0-53.0); HGB 12.1 gm/dL (13.0-17.5); Lymphocytes # (A) 0.2 k/uL (1.0-4.8); Lymphocytes % (A) 2 %; MCH 30.3 pg (25.0-35.0); MCHC 33.9 g/dL (31.0-37.0); MCV 89.2 fL (80.0-100.0); Mean Platelet Volume 7.4; Monocytes # (A) 0.6 k/uL (0-1.0); Monocytes % (A) 5 %; Neutrophils # (A) 12.2 k/uL (1.3-7.7); Neutrophils % (A) 92 %; Platelet Count 206 k/uL (150-450); RDW 14.2 % (11.5-15.5); WBC 13.3 k/uL (3.8-10.6)
[2020-12-12 04:14] LABS: Glucose,Whole Blood 145 mg/dL (75-99)
[2020-12-12 05:18] LABS: Albumin 2.4 g/dL (3.5-5.0); Calcium 7.2 mg/dL (8.4-10.2); Total Bilirubin 0.5 mg/dL (0.2-1.3); Total Protein 4.7 g/dL (6.3-8.2)
[2020-12-12 05:23] LABS: Potassium 6.3 mmol/L (3.5-5.1)
[2020-12-12 05:43] LABS: ABG Base Excess -8.1 mmol/L; ABG HCO3 20 mmol/L (21-25); ABG Oxygen Saturation 92.1 % (94-97); ABG PCO2 50 mmHg (35-45); ABG PH 7.21 (7.35-7.45); ABG PO2 72 mmHg (83-108); ABG TCO2 21 mmol/L (19-24)
[2020-12-12 05:45] LABS: Allen Test Performed? no
[2020-12-12 06:16] LABS: Glucose,Whole Blood 157 mg/dL (75-99)
[2020-12-12] MEDS ORDERED: INSULIN REGULAR 100 UNIT/ML VIAL IV ONE (06:29)
[2020-12-12] MEDS ORDERED: DEXTROSE 50% SYRINGE 50 ML IVP STA (06:30)
[2020-12-12] MEDS: fentaNYL (PF). 1,000 MCG in SODIUM CHLORIDE 0.9% 80 ML IV SCH ×2 (06:55→14:38)
[2020-12-12] MEDS: ALBUTEROL HFA INHALER INHALATION PRN ×3 (07:54→19:03)
[2020-12-12] MEDS: SYMBICORT 160-4.5 MCG INHALER INHALATION SCH ×2 (07:55→19:03)
--- NOTE | 2020-12-12 08:22 | XR ---
EXAMINATION TYPE: XR chest 1V portable DATE OF EXAM: 12/12/2020 COMPARISON: 12/11/2020 INDICATION: Tube placement TECHNIQUE: Single frontal view of the chest is obtained. FINDINGS: The heart size is enlarged. The pulmonary vasculature is prominent. Diffuse increased lung markings are present greater at the lung bases. There is silhouetting of the d iaphragms. Small pleural effusions may be present. There is a right central venous catheter with tip in the right atrium. Endotracheal tube tip is above the chrissy. Nasogastric tube transverses the thorax. IMPRESSION: 1. Mild progression of bilateral lung infiltrates. Correlate for CHF. 2. Lines and catheters discussed above.
[2020-12-12] MEDS: atenoloL 25 MG TAB PO SCH (09:22)
[2020-12-12] MEDS: SODIUM BICARBONATE TAB 650 MG TAB PO SCH ×2 (09:22→20:08)
[2020-12-12] MEDS: methylPREDNISolone SOD SUCCI 40 MG/ML 1 ML VIAL IV SCH ×2 (09:22→20:08)
[2020-12-12] MEDS: CHLORHEXIDINE GLUCONATE 15 ML CUP MUCOUS MEM SCH ×2 (09:22→20:08)
[2020-12-12] MEDS: PANTOPRAZOLE 40 MG/10 ML VIAL IVP SCH (09:22)
[2020-12-12] MEDS: GABAPENTIN 300 MG CAP PO SCH (09:22)
[2020-12-12] MEDS: ZINC SULFATE 220 MG CAP PO SCH (09:22)
[2020-12-12] MEDS: CHOLECALCIFEROL 25 MCG (1000 IU) TABLET PO SCH (09:22)
[2020-12-12] MEDS: ENOXAPARIN 30 MG/0.3 ML SYRINGE SQ SCH ×2 (09:22→20:08)
[2020-12-12] MEDS: MEROPENEM 1 GM in SODIUM CHLORIDE 0.9% 100 ML IVPB SCH ×2 (09:23→20:09)
[2020-12-12] MEDS: SODIUM CHLORIDE 0.45% 1,000 ML with SODIUM BICARB (1 MEQ/ML) 100 ML IV SCH ×2 (10:23)
--- NOTE | 2020-12-12 10:58 | P.PN ---
Subjective Progress Note Date: 12/12/20 (Critical care time 35 minutes) Principal diagnosis: Acute kidney injury Fluid overload Acute on chronic hypoxic respiratory failure with worsening status septic shock Bilateral gram-negative pneumonia due to ESBL E. coli Acute kidney injury Hyperkalemia Uncontrolled diabetes and hyperglycemia Pulmonary fibrosis due to prior extensive COVID-19 pneumonia Sepsis and fever of unknown region Generalized weakness and medical debility Asbestosis lung Advanced diabetes mellitus with hyperglycemia Chronic kidney disease stage III 12/12/2020, patient seen eval examined during the rounds labs reviewed medications reviewed patient remains sedated and medically paralyzed, patient is on the propofol which is down to 40 mics, NIMBEX AND FENTANYL DRIP, HEMODYNAMIC STATUS IS STABLE OFF OF VASOPRESSORS, BLOOD PRESSURE STABLE, respiratory status remains very marginal along with fluid overload and anasarca attempted Lasix strip patient did not respond very well, patient remains on assist control with a rate of 30 tidal volume of 550, 10 of PEEP oxygen is 70%, unable to wean it down saturations marginal 91% only, peak airway pressure up into high 30s now persistent with poor compliance of the chest also component of fluid overload, labs reviewed white cell count remains stable 13,000, hemoglobin stable platelet count is 206,000, ABG revealed pH of 7.21, pCO2 50, pO2 72, sodium 138 production continued to be up to 6.3, BUN and creatinine increase to 96 and 2.66, 12/11/2020, patient seen eval reexamined during the rounds labs reviewed medications reviewed care plan discussed, respiratory status the remains marginal however patient started desaturating earlier this morning has a significant amount of respiratory and metabolic acidosis as well, patient has been +3 L in the last 24 hours, discussed with the renal service about increasing diuretics or possibly starting on bicarb drip, renal function however remains stable, patient is sedated and medically paralyzed with fentanyl propofol Nimbex, discussed with staff about lowering down propofol drip to 30-40 mics, chest x-ray from today reviewed consistent with fluid overload fluid appears to be tracking into right major fissure, overall not much change from previous x-ray, patient remains on ventilator setting current setting includes assist control rate of 30, tidal volume of 550, FiO2 increase from 60% to 70%, sugars elevated have been on sliding scale, patient is tolerating tube feed fairly well, patient also noted to have progressive developing anasarca, noted labs white cell count continue to go down to 13,000, arterial blood gas continued magnificent respiratory and metabolic acidosis, significant component of diffusion impairment, hyperkalemia with potassium was 6.1, 12/10/2020, patient seen eval examined in the ICU, he remains intubated and medically sedated and paralyzed on the propofol, name backs and fentanyl drip, levo fed is now came off after fluid boluses, patient has significant metabolic acidosis due to multifactorial processes including acute kidney injury pneumonia and the vasopressors, patient has been on bicarb drip, being adjusted, to feed is in process, hemodynamic status is slightly better, FiO2 is started down to 70%, underwent setting includes assist control rate of 30 to volume of 550 10 of PEEP, arterial blood gases reviewed pH 7.14 pCO2 51 patient was given 1 amp of bicarb with the bicarb drip white cell count is down to 18,800, hemodynamic status slightly stable than before, overall plan is to continue to come down oxygen monitor renal functions closely monitor hyperkalemia, repeat chemistry pending for later on today 12/09/2020, patient seen eval examined continued to have marginal hemodynamics and respiratory status, patient sedated medically paralyzed with Nimbex drip, propofol, fentanyl drip, arterial blood gases done this morning reveal severe metabolic and respiratory acidosis ventilator have been adjusted now new ventricular setting includes assist control rate of 30 to volume of 550 PEEP remains 10 oxygen is down to 90%, patient now on levo fed, we'll try to taper down the levo fed by giving fluids S patient is volume depleted as well and lowering down propofol aim to bring down propofol to 30-40 mics in next 24 hours, fluid will be given 100 mL an hour continuous with fluid boluses boluses of 500 mL/h for 2 hours, patient remains on meropenem, potassium noted to be elevated to 6.4, BUN/creatinine slightly up to 55 1.8, we'll give Kayexalate 2 doses, repeat BMP later on today 12/08/2020, patient seen eval examined during the rounds labs reviewed medications reviewed, critical care time spent 45 minutes, patient developed progressive increased respiratory distress was transferred to the ICU was intubated for respiratory distress, patient has dense bilateral infiltrate, sputum is positive for gram-negative rods, patient is hypotensive requiring fluid boluses likely will required vasopressors as well, for agitation has been placed on propofol for now has been on 75 need to be paralyzed, patient has been also started on fentanyl drip, patient has been on Cefepime for gram-negative pneumonia, final sputum culture have been pending, patient currently on full ventilator support with 100% oxygen and 10 of PEEP, rate is 26, breathing about 28-30, volume is 500, peak pressure in low 30s, blood pressure after the boluses 100/40, respiratory rate is 32, heart rate 81 temperature sats are 91%, 1 cell count is up to 23,000 hemoglobin is stable 14, d-dimer continue to go up 3.97, arterial blood gases revealed pH of 7.24 pCO2 58-year-old O2 of 80 8/2 an hour after on above ventilator setting, potentially was 5.5, BUN/creatinine 45 1.37, patient has a elevated inflammatory parameters including ferritin in 631, LDH is 1658 C-reactive protein 15.9 patient will need a central line, we will sedate and medically paralyzed, will start tube feed, monitor labs closely, patient will be started on Lovenox 30 mg subcu every 12 12/06/2020, patient seen eval reexamined labs reviewed medications reviewed care plan discussed, respiratory status remains marginal denies any chest pain, however more hypoxic currently on 15 L high flow oxygen, remains afebrile hemodynamically stable, oxygen saturation is 93%, check urgent pro-calcitonin as well as d-dimer, if d-dimer is elevated consider doing a VQ scan and duplex ultrasound lower extremity, we will also check an echocardiogram This is a 70-year-old male well-known to me patient has a severe diabetes mellitus and chronic kidney disease as baseline, 2 months ago patient was admitted to hospital with acute COVID-19 pneumonia and respiratory failure patient was on 100% oxygen and BiPAP but however successfully tapered down up to 4 L nasal cannula was discharged home patient did not came back for follow-up, for the last few days has been spiking fever more short of breath oxygen in increase to 5 L nasal cannula came into the hospital for further evaluation chest x-ray not much change his code went testing is negative, patient has been vaccinated for COVID-19 his most recent chest x-ray continued to show cardiomegaly chronic changes, no particular significant change from prior x- rays, patient does have a history of asbestosis lung however Objective - Vital Signs Vital signs: Vital Signs Temp 97.8 F 12/12/20 04:00 Pulse 67 12/12/20 10:00 Resp 30 H 12/12/20 10:00 BP 122/57 12/12/20 10:00 Pulse Ox 91 L 12/12/20 10:00 Intake & Output 12/11/20 12/12/20 12/12/20 18:59 06:59 18:59 Intake Total 8645.986 8103.558 460.314 Output Total 310 215 100 Balance 2208.620 6146.558 360.314 Intake: IV 276 276 69 Sodium Chloride 0.9% 1, 240 240 60 000 ml @ 20 mls/hr IV . Q24H [facility] Rx#:[id number] pressure bag 36 36 9 Intake, IV Titration 7797.448 0697.558 346.314 Amount Cisatracurium 200 mg In 177.78 Sodium Chloride 0.9% 180 ml @ 1 MCG/KG/MIN 6.94 mls/hr IV .Q24H [facility] Rx#: [id number] Furosemide 100 mg In 20 72.833 100 Sodium Chloride 0.9% 90 ml @ 10 MG/HR 10 mls/hr IV .Q10H [facility] Rx#: [id number] Meropenem 1 gm In Sodium 100 100 Chloride 0.9% 100 ml @ 33 .3 mls/hr IVPB Q8HR [facility] Rx#:[id number] Sodium Chloride 0.45% 1, 480 480 120 000 ml @ 40 mls/hr IV . Q24H [facility] with Sodium Bicarb (1 Meq/ml) 100 ml Rx#:[id number] fentaNYL (PF). 1,000 mcg 67.276 100 16.482 In Sodium Chloride 0.9% 80 ml @ Per Protocol IV . Q0M [facility] Rx#:[id number] propofoL 1,000 mg In 508.252 350.945 109.832 Empty Bag 1 bag @ Titrate IV .Q0M [facility] Rx#: [id number] Tube Feeding 45 180 45 Other 90 Output: Urine 310 215 100 Other: Voiding Method Indwelling Catheter Indwelling Catheter ABP, PAP, CO, CI - Last Documented Arterial Blood Pressure 110/49 - Exam - Constitutional General appearance: sedated on full ventilator support - Neck Neck: normal ROM Carotids: bilateral: upstroke normal Thyroid: bilateral: normal size - Respiratory Respiratory: bilateral: diminished, rales - Cardiovascular Rhythm: regular Heart sounds: normal: S1, S2 - Gastrointestinal General gastrointestinal: soft - Integumentary Integumentary: normal turgor - Neurologic Neurologic: CNII-XII intact - Musculoskeletal Musculoskeletal: gait normal, generalized weakness, strength equal bilaterally - Psychiatric Psychiatric: sedated on full ventilator support - Labs CBC & Chem 7: 12/12/20 03:50 12/12/20 03:50 Labs: Abnormal Lab Results - Last 24 Hours (Table) 12/11/20 12/11/20 12/11/20 Range/Units 11:19 14:19 16:01 WBC (3.8-10.6) k/uL RBC (4.30-5.90) m/uL Hgb (13.0-17.5) gm/dL Hct (39.0-53.0) % Neutrophils # (1.3-7.7) k/uL Lymphocytes # (1.0-4.8) k/uL ABG pH (7.35-7.45) ABG pCO2 (35-45) mmHg ABG pO2 (83-108) mmHg ABG HCO3 (21-25) mmol/L ABG O2 Saturation (94-97) % Potassium 6.0 H (3.5-5.1) mmol/L Chloride (98-107) mmol/L Carbon Dioxide (22-30) mmol/L BUN (9-20) mg/dL Creatinine (0.66-1.25) mg/dL Glucose (74-99) mg/dL POC Glucose (mg/dL) 253 H 224 H (75-99) mg/dL Calcium (8.4-10.2) mg/dL Total Protein (6.3-8.2) g/dL Albumin (3.5-5.0) g/dL 12/11/20 12/11/20 12/11/20 Range/Units 18:23 20:51 20:55 WBC (3.8-10.6) k/uL RBC (4.30-5.90) m/uL Hgb (13.0-17.5) gm/dL Hct (39.0-53.0) % Neutrophils # (1.3-7.7) k/uL Lymphocytes # (1.0-4.8) k/uL ABG pH (7.35-7.45) ABG pCO2 (35-45) mmHg ABG pO2 (83-108) mmHg ABG HCO3 (21-25) mmol/L ABG O2 Saturation (94-97) % Potassium 6.0 H (3.5-5.1) mmol/L Chloride (98-107) mmol/L Carbon Dioxide (22-30) mmol/L BUN (9-20) mg/dL Creatinine (0.66-1.25) mg/dL Glucose (74-99) mg/dL POC Glucose (mg/dL) 250 H 211 H (75-99) mg/dL Calcium (8.4-10.2) mg/dL Total Protein (6.3-8.2) g/dL Albumin (3.5-5.0) g/dL 12/11/20 12/12/20 12/12/20 Range/Units 22:50 01:27 03:50 WBC 13.3 H (3.8-10.6) k/uL RBC 4.00 L (4.30-5.90) m/uL Hgb 12.1 L (13.0-17.5) gm/dL Hct 35.7 L (39.0-53.0) % Neutrophils # 12.2 H (1.3-7.7) k/uL Lymphocytes # 0.2 L (1.0-4.8) k/uL ABG pH (7.35-7.45) ABG pCO2 (35-45) mmHg ABG pO2 (83-108) mmHg ABG HCO3 (21-25) mmol/L ABG O2 Saturation (94-97) % Potassium (3.5-5.1) mmol/L Chloride (98-107) mmol/L Carbon Dioxide (22-30) mmol/L BUN (9-20) mg/dL Creatinine (0.66-1.25) mg/dL Glucose (74-99) mg/dL POC Glucose (mg/dL) 177 H 146 H (75-99) mg/dL Calcium (8.4-10.2) mg/dL Total Protein (6.3-8.2) g/dL Albumin (3.5-5.0) g/dL 12/12/20 12/12/20 12/12/20 Range/Units 03:50 04:13 05:37 WBC (3.8-10.6) k/uL RBC (4.30-5.90) m/uL Hgb (13.0-17.5) gm/dL Hct (39.0-53.0) % Neutrophils # (1.3-7.7) k/uL Lymphocytes # (1.0-4.8) k/uL ABG pH 7.21 L (7.35-7.45) ABG pCO2 50 H (35-45) mmHg ABG pO2 72 L (83-108) mmHg ABG HCO3 20 L (21-25) mmol/L ABG O2 Saturation 92.1 L (94-97) % Potassium 6.3 H* (3.5-5.1) mmol/L Chloride 111 H (98-107) mmol/L Carbon Dioxide 18 L (22-30) mmol/L BUN 96 H (9-20) mg/dL Creatinine 2.66 H (0.66-1.25) mg/dL Glucose 132 H (74-99) mg/dL POC Glucose (mg/dL) 145 H (75-99) mg/dL Calcium 7.2 L (8.4-10.2) mg/dL Total Protein 4.7 L (6.3-8.2) g/dL Albumin 2.4 L (3.5-5.0) g/dL 12/12/20 Range/Units 06:14 WBC (3.8-10.6) k/uL RBC (4.30-5.90) m/uL Hgb (13.0-17.5) gm/dL Hct (39.0-53.0) % Neutrophils # (1.3-7.7) k/uL Lymphocytes # (1.0-4.8) k/uL ABG pH (7.35-7.45) ABG pCO2 (35-45) mmHg ABG pO2 (83-108) mmHg ABG HCO3 (21-25) mmol/L ABG O2 Saturation (94-97) % Potassium (3.5-5.1) mmol/L Chloride (98-107) mmol/L Carbon Dioxide (22-30) mmol/L BUN (9-20) mg/dL Creatinine (0.66-1.25) mg/dL Glucose (74-99) mg/dL POC Glucose (mg/dL) 157 H (75-99) mg/dL Calcium (8.4-10.2) mg/dL Total Protein (6.3-8.2) g/dL Albumin (3.5-5.0) g/dL Microbiology - Last 24 Hours (Table) 12/08/20 20:20 Gram Stain - Final Sputum Sputum Culture - Final Anamaria albicans 12/05/20 15:23 Blood Culture - Final Blood No Growth after 144 hours Assessment and Plan Assessment: acute kidney injury with fluid overload and anasarca gram-negative pneumonia due to ESBL E. coli Severe sepsis and septic shock due to gram-negative pneumonia Acute on chronic hypoxic and hypercapnic respiratory failure Acute lung injury and ARDS Developing progressive right-sided pleural effusion Acute kidney injury hyperkalemia Metabolic and respiratory acidosis Uncontrolled diabetes Pulmonary fibrosis due to extensive recentCOVID-19 pneumonia Asbestosis lung Advanced diabetes mellitus with hyperglycemia Chronic kidney disease stage III Plan: patient is being planned for hemodialysis did not respond to Lasix or Lasix infusion ventilator adjustment status post central line Lovenox 30 mg subcu every 12 tube feed as per protocol Labs chest x-ray and ABG in the morning Plan to sedate and medically paralyzed with propofol, fentanyl, Nimbex, titrated propofol down to 30-40 mics in next 24 hours Vasopressors as needed Fluid boluses as needed Follow-up on [place] cultures including sputum urine and blood continue antibiotics IV steroids Continue supplemental oxygen Deep breathing exercise incentive spirometry Time with Patient: Greater than 30
[2020-12-12 11:29] LABS: Glucose,Whole Blood 138 mg/dL (75-99)
--- NOTE | 2020-12-12 12:25 | P.PN ---
Subjective Patient is being treated for secondary bacterial pneumonia and he was recently discharged after he was treated for Covid 19. 8. Patient is a pleasant 70-year-old male came in with the complaints of shortness of breath on 4 L of oxygen and oxygen saturation is going down to 78%. Patient is comparing of cough with yellowish sputum production. Patient was having high-grade fevers patient denied any dysuria patient denied nausea vomiting. Patient was discharged from the hospital after 3 week treatment for Covid 19 patient was discharged earlier this month. Patient came back positive again on of this month patient did receive both Covid vaccines. Patient's creatinine at the time of discharge is around 1.3 presently around 1.3. Patient is bit hyponatremic. Patient at a chest x-ray which is showing bilateral infiltrates consistent with Covid 19, although infiltrates are mildly better compared to the previous x-rays. 12/05/2020 Patient continues to have fevers is pretty status appears to have worsened a bit and patient is an 5 L of oxygen is still bit hypoxic and patient is in mild respiratory distress. Patient is being treated for secondary bacterial pneumonia. Repeat Covid 19 PCR is negative now. Patient blood sugars are well controlled. Dec 09 2020 Patient respiratory status worsened patient went into septic shock was subsequently transferred to intensive care unit with sputum cultures are showing ESBL E. coli patient was started on meropenem. Patient's ABGs consistent with the acidosis and both hypoxic as well as hypercapnic respiratory failure patient is presently on ventilator support. Assist control ventilation with PEEP of 10 have out of 90% set up respiratory rate of around 20 and tidal volume of 550. Patient is also numb nor- epinephrine. Patient is in septic shock. has very minimal urine output patient appears to have acute to the necrosis and patient has elevated creatinine of 2.15. Patient's potassium is elevated to 6.4 received Late has come down to 5.8. Patient is on the propofol sedation patient is also receiving systemic steroids. Atenolol and the Norvasc will be discontinued 12/10/2020 Patient remains on ventilator support with set up respiratory to for 30, tidal volume of 550, PEEP of 10 and FiO2 of 70% patient was on FiO2 of 100% yesterday. Patient remains on the propofol and Nimbex. Patient is off the levo fed. Remains on meropenem since the December 08. 12/11/2020 Patient remains acidotic with hypercapnia, respiratory is doses. Patient remai ns on the same and settings as yesterday. Patient is hypokalemic nephrology is managing this. Patient creatinine remained stable at 2.2. Patient's blood sugars are high will add short-acting insulin every 6 hours patient is receiving OG tube feedings, Nepro. Patient is back on norepinephrine. His leukocytosis although can you to improve. 12/12/2020 Visit acidosis improved patient remains in the same symptoms when settings as yesterday. Patient was started on hemodialysis because of persistent hyperkalemia volume overload poor urine output. Patient chest x-ray showing pulmonary edema patient has extensive anasarca. Patient is presently not on norepinephrine. Patient is on IV Lasix drip. Review of systems: Unable to obtain due to his clinical condition All inpatient medications were reviewed and appropriate changes in these medications as dictated in the interval history and assessment and plan. Objective - Vital Signs Vital signs: Vital Signs Temp 97.8 F 12/12/20 04:00 Pulse 63 12/12/20 11:00 Resp 30 H 12/12/20 11:00 BP 119/53 12/12/20 11:00 Pulse Ox 92 L 12/12/20 11:00 Intake & Output 12/11/20 12/12/20 12/12/20 18:59 06:59 18:59 Intake Total 8449.565 7468.558 596.314 Output Total 310 215 180 Balance 4925.944 2319.558 416.314 Intake: IV 276 276 175 Meropenem 1 gm In Sodium 100 Chloride 0.9% 100 ml @ 33 .3 mls/hr IVPB Q8HR [facility] Rx#:[id number] Sodium Chloride 0.9% 1, 240 240 60 000 ml @ 20 mls/hr IV . Q24H [facility] Rx#:[id number] pressure bag 36 36 15 Intake, IV Titration 3316.768 0023.558 346.314 Amount Cisatracurium 200 mg In 177.78 Sodium Chloride 0.9% 180 ml @ 1 MCG/KG/MIN 6.94 mls/hr IV .Q24H [facility] Rx#: [id number] Furosemide 100 mg In 20 72.833 100 Sodium Chloride 0.9% 90 ml @ 10 MG/HR 10 mls/hr IV .Q10H [facility] Rx#: [id number] Meropenem 1 gm In Sodium 100 100 Chloride 0.9% 100 ml @ 33 .3 mls/hr IVPB Q8HR [facility] Rx#:[id number] Sodium Chloride 0.45% 1, 480 480 120 000 ml @ 40 mls/hr IV . Q24H [facility] with Sodium Bicarb (1 Meq/ml) 100 ml Rx#:[id number] fentaNYL (PF). 1,000 mcg 67.276 100 16.482 In Sodium Chloride 0.9% 80 ml @ Per Protocol IV . Q0M [facility] Rx#:[id number] propofoL 1,000 mg In 508.252 350.945 109.832 Empty Bag 1 bag @ Titrate IV .Q0M [facility] Rx#: [id number] Tube Feeding 45 180 75 Other 90 Output: Urine 310 215 180 Other: Voiding Method Indwelling Catheter Indwelling Catheter Indwelling Catheter ABP, PAP, CO, CI - Last Documented Arterial Blood Pressure 110/49 - Exam PHYSICAL EXAMINATION: GENERAL: Patient is intubated sedated HEENT: Pupils are round and equally reacting to light. EOMI. No scleral icterus. No conjunctival pallor. Normocephalic, atraumatic. No pharyngeal erythema. No thyromegaly. CARDIOVASCULAR: S1 and S2 present. No murmurs, rubs, or gallops. PULMONARY: Chest is clear to auscultation, no wheezing or crackles. ABDOMEN: Soft, nontender, nondistended, normoactive bowel sounds. No palpable organomegaly. MUSCULOSKELETAL: No joint swelling or deformity. EXTREMITIES: No cyanosis, clubbing, or pedal edema. NEUROLOGICAL: Sedated. SKIN: No rashes. - Labs CBC & Chem 7: 12/12/20 03:50 12/12/20 03:50 Labs: Abnormal Lab Results - Last 24 Hours (Table) 12/11/20 12/11/20 12/11/20 Range/Units 14:19 16:01 18:23 WBC (3.8-10.6) k/uL RBC (4.30-5.90) m/uL Hgb (13.0-17.5) gm/dL Hct (39.0-53.0) % Neutrophils # (1.3-7.7) k/uL Lymphocytes # (1.0-4.8) k/uL ABG pH (7.35-7.45) ABG pCO2 (35-45) mmHg ABG pO2 (83-108) mmHg ABG HCO3 (21-25) mmol/L ABG O2 Saturation (94-97) % Potassium 6.0 H (3.5-5.1) mmol/L Chloride (98-107) mmol/L Carbon Dioxide (22-30) mmol/L BUN (9-20) mg/dL Creatinine (0.66-1.25) mg/dL Glucose (74-99) mg/dL POC Glucose (mg/dL) 224 H 250 H (75-99) mg/dL Calcium (8.4-10.2) mg/dL Total Protein (6.3-8.2) g/dL Albumin (3.5-5.0) g/dL 12/11/20 12/11/20 12/11/20 Range/Units 20:51 20:55 22:50 WBC (3.8-10.6) k/uL RBC (4.30-5.90) m/uL Hgb (13.0-17.5) gm/dL Hct (39.0-53.0) % Neutrophils # (1.3-7.7) k/uL Lymphocytes # (1.0-4.8) k/uL ABG pH (7.35-7.45) ABG pCO2 (35-45) mmHg ABG pO2 (83-108) mmHg ABG HCO3 (21-25) mmol/L ABG O2 Saturation (94-97) % Potassium 6.0 H (3.5-5.1) mmol/L Chloride (98-107) mmol/L Carbon Dioxide (22-30) mmol/L BUN (9-20) mg/dL Creatinine (0.66-1.25) mg/dL Glucose (74-99) mg/dL POC Glucose (mg/dL) 211 H 177 H (75-99) mg/dL Calcium (8.4-10.2) mg/dL Total Protein (6.3-8.2) g/dL Albumin (3.5-5.0) g/dL 12/12/20 12/12/20 12/12/20 Range/Units 01:27 03:50 03:50 WBC 13.3 H (3.8-10.6) k/uL RBC 4.00 L (4.30-5.90) m/uL Hgb 12.1 L (13.0-17.5) gm/dL Hct 35.7 L (39.0-53.0) % Neutrophils # 12.2 H (1.3-7.7) k/uL Lymphocytes # 0.2 L (1.0-4.8) k/uL ABG pH (7.35-7.45) ABG pCO2 (35-45) mmHg ABG pO2 (83-108) mmHg ABG HCO3 (21-25) mmol/L ABG O2 Saturation (94-97) % Potassium 6.3 H* (3.5-5.1) mmol/L Chloride 111 H (98-107) mmol/L Carbon Dioxide 18 L (22-30) mmol/L BUN 96 H (9-20) mg/dL Creatinine 2.66 H (0.66-1.25) mg/dL Glucose 132 H (74-99) mg/dL POC Glucose (mg/dL) 146 H (75-99) mg/dL Calcium 7.2 L (8.4-10.2) mg/dL Total Protein 4.7 L (6.3-8.2) g/dL Albumin 2.4 L (3.5-5.0) g/dL 12/12/20 12/12/20 12/12/20 Range/Units 04:13 05:37 06:14 WBC (3.8-10.6) k/uL RBC (4.30-5.90) m/uL Hgb (13.0-17.5) gm/dL Hct (39.0-53.0) % Neutrophils # (1.3-7.7) k/uL Lymphocytes # (1.0-4.8) k/uL ABG pH 7.21 L (7.35-7.45) ABG pCO2 50 H (35-45) mmHg ABG pO2 72 L (83-108) mmHg ABG HCO3 20 L (21-25) mmol/L ABG O2 Saturation 92.1 L (94-97) % Potassium (3.5-5.1) mmol/L Chloride (98-107) mmol/L Carbon Dioxide (22-30) mmol/L BUN (9-20) mg/dL Creatinine (0.66-1.25) mg/dL Glucose (74-99) mg/dL POC Glucose (mg/dL) 145 H 157 H (75-99) mg/dL Calcium (8.4-10.2) mg/dL Total Protein (6.3-8.2) g/dL Albumin (3.5-5.0) g/dL 12/12/20 Range/Units 11:28 WBC (3.8-10.6) k/uL RBC (4.30-5.90) m/uL Hgb (13.0-17.5) gm/dL Hct (39.0-53.0) % Neutrophils # (1.3-7.7) k/uL Lymphocytes # (1.0-4.8) k/uL ABG pH (7.35-7.45) ABG pCO2 (35-45) mmHg ABG pO2 (83-108) mmHg ABG HCO3 (21-25) mmol/L ABG O2 Saturation (94-97) % Potassium (3.5-5.1) mmol/L Chloride (98-107) mmol/L Carbon Dioxide (22-30) mmol/L BUN (9-20) mg/dL Creatinine (0.66-1.25) mg/dL Glucose (74-99) mg/dL POC Glucose (mg/dL) 138 H (75-99) mg/dL Calcium (8.4-10.2) mg/dL Total Protein (6.3-8.2) g/dL Albumin (3.5-5.0) g/dL Microbiology - Last 24 Hours (Table) 12/08/20 20:20 Gram Stain - Final Sputum Sputum Culture - Final Anamaria albicans 12/05/20 15:23 Blood Culture - Final Blood No Growth after 144 hours Assessment and Plan Plan: 1 septic shock: Patient probably has a secondary bacterial pneumonia, patient's (a positive for E. coli which is ESBL E. coli patient is presently on meropenem. Shock improved patient is off pressor support as mentioned above patient is on ventilatory support. Patient most probably has a post Covid bacterial pne umonia. COVID-19 PCR is negative on this hospitalization, pulmonary and infectious disease are following the patient. -Acute hypoxic respiratory failure secondary to septic shock patient is presently on norepinephrine -Hyperkalemia secondary to acute renal failure. Patient was started on hemodialysis today -Acute renal failure secondary to acute tubular necrosis from septic shock, as a started on hemodialysis -Volume overload secondary to renal failure patient was initiated on hemodialysis -elevated d-dimer secondary to pneumonia . -Acute on chronic hypoxic respiratory failure secondary to pneumonia. -History of asbestosis -Chronic kidney disease stage II to 3. Probable diabetic nephropathy --History of DVT in the past -Type 2 diabetes mellitus: We'll today continue with present regimen of long- acting insulin and short-acting insulin every 6 hours. -Hypertension -Sleep apnea -Diabetic peripheral neuropathy -DVT prophylaxis with subcutaneous heparin
--- NOTE | 2020-12-12 12:43 | PN ---
PROGRESS NOTE DATE OF SERVICE: 12/12/2020 REASON FOR FOLLOWUP: Pneumonia. INTERVAL HISTORY: The patient is currently afebrile. The patient is hemodynamically stable. The patient's FiO2 is currently stable at 70%. No significant purulent secretions in the ET or diarrhea or any other changes reported by nursing staff. PHYSICAL EXAMINATION: VITAL SIGNS: Blood pressure 110/49 with a pulse of 77, temperature 98, he is 93% on 70% FiO2. GENERAL DESCRIPTION: An elderly male intubated, on the vent. RESPIRATORY SYSTEM: Unlabored breathing, decreased intensity of breath sounds, no wheeze. HEART: S1, S2. Regular rate and rhythm. ABDOMEN: Soft, no tenderness. LABS: Hemoglobin is 12.1, white count 13.3, BUN of 96, creatinine is 2.66. DIAGNOSTIC IMPRESSION AND PLAN: Patient with acute respiratory failure which is multifactorial. This patient did have a component of pneumonia. Sputum has been ESBL and E coli. Patient is covered with meropenem, to continue along with respiratory support and monitor clinical course closely. MMODL / IJN: [id number] /
--- NOTE | 2020-12-12 13:35 | US ---
EXAMINATION TYPE: US kidneys/renal and bladder DATE OF EXAM: 12/12/2020 COMPARISON: US 06/25/20, 09/16/19, CT 09/16/19 CLINICAL HISTORY: Evaluate kidneys. Renal CA. Pt had right renal mass removed from lower pole in 2019 . EXAM MEASUREMENTS: Right Kidney: 12.2 x 6.7 x 6.3 cm Left Kidney: 13.1 x 7.0 x 5.7 cm Post Void Residual Volume: Not calculated mL Right Kidney: 3.1 x 3.1 x 3.0 cm cyst upper pole. Lower pole difficult to see ? mass vs bowel. No hyd ronephrosis seen. Decreased renal cortex. Left Kidney: ? mid pole, medial mass vs normal renal cortex = 2.5 x 2.2 x 1.9 cm Bladder: Not seen. Patient has carey catheter. Bilateral Jets seen: No Normal Post Void Residual: Not calculated. There is no evidence for hydronephrosis at this point in time. No nephrolithiasis is seen. Cortical mass is noted left kidney midpole measuring 2.5 cm.. Cortical medullary differentiation is maintained , cortical thinning is noted as on prior ultrasound, cortical echogenicity is likely increased Sub optimal exam overall due to this ICU patient on vent, large patient size, and large amounts of steve wel gas. Unable to change patient position, have patient take in deep breath, or reach around patient as needed. IMPRESSION: Exam is limited. Suspect medical renal disease, left renal mass is suspected, additional imaging is w arranted.
--- NOTE | 2020-12-12 14:52 | PN ---
PROGRESS NOTE The patient is seen for followup for acute kidney injury. The patient has had persistent hyperkalemia. He was started on Lasix drip yesterday and urine output has been at about 20-30 mL an hour. His creatinine has increased to 2.6 today. The patient will be started on dialysis due to persistent hyperkalemia. PHYSICAL EXAMINATION: On examination today, patient is sedated he is on the vent. FiO2 is 70%, O2 sats 91- 92%. Blood pressure 122/57, heart rate 67 per minute, he is afebrile. Examination of the heart S1, S2. Examination of the lungs, bilateral breath sounds are heard. Abdomen is soft. Examination of lower extremities shows edema 2+ bilaterally. INS[employer]OR OF WEIGHTS AND MEASURES exam cannot be performed. LAB: Show sodium 138, potassium 6.3, chloride 111, CO2 is 18, BUN 96, serum creatinine 2.6, albumin 2.4, hemoglobin 12.1 g/dL. ASSESSMENT: 1. Acute kidney injury, ATN, currently nonoliguric with worsening renal function and persistent hyperkalemia. Patient will be started on dialysis today. 2. Metabolic acidosis. Expect improvement with initiation of dialysis. Etiology is renal failure. 3. Vent dependent respiratory failure secondary to ARDS and pneumonia. Sputum culture grew E coli. 4. Recent COVID infection/pneumonia, current covert PCR is negative. 5. Volume overload, expect improvement with dialysis, continue with the Lasix drip for now. PLAN: Continue Lasix drip. Hemodialysis today and then again in a.m. MMMARLONL / GEOVANNYN: [id number] /
[2020-12-12 15:52] LABS: Hepatitis B Surface AB- Quant <3.5 mIU/mL; Hepatitis B Surface Antibody Non-Reactive (Non-Reactive); Hepatitis B Surface Antigen Non-Reactive (Non-Reactive)
--- NOTE | 2020-12-12 16:13 | PCN ---
PROCEDURE NOTE PREOP DIAGNOSIS: Acute chronic renal failure. POSTOP DIAGNOSIS: Acute on chronic renal failure. PROCEDURE PERFORMED: Ultrasound-guided dialysis catheter placement right femoral approach. DESCRIPTION OF PROCEDURE: The patient was seen in the intensive care unit. Right groin was prepped and drapes applied in the usual sterile manner. Ultrasound-guided micropuncture introduced into the right femoral vein and micropuncture guidewire was passed. After that, we passed a dilator on the top of the guidewire. Then we passed a regular guidewire without any resistance. Dilator was advanced and dialysis catheter was advanced on the top of the guidewire. The guidewire was removed. Flushed with saline and hep-locked and secured with 3-0 nylon. Dressing applied. Patient tolerated the procedure well. MMODL / IJN: [id number] /
[2020-12-12 16:18] LABS: Glucose,Whole Blood 125 mg/dL (75-99)
[2020-12-12] MEDS ORDERED: LACTULOSE 20 GM/30 ML CUP PO PRN (16:46)
[2020-12-12 20:03] LABS: Glucose,Whole Blood 137 mg/dL (75-99)
[2020-12-12] MEDS: SENNOSIDES 8.6 MG TAB PO SCH (20:08)
[2020-12-12] MEDS: INSULIN DETEMIR (LEVEMIR) 100 UNIT/ML SYR SQ SCH (20:08)
--- NOTE | 2020-12-12 22:48 | CONS ---
DATE OF CONSULTATION: 12/12/2020 This is a 70-year-old gentleman who has been admitted with history of shortness of breath and patient has been intubated. I was consulted for urgent placement of dialysis catheter. The patient had history of chronic kidney disease, now the BUN creatinine is going up and patient is over fluid loaded. Chest x-ray showed bilateral infiltrate consistent with Covid 19. MEDICAL HISTORY: Diabetes mellitus, hypertension, sleep apnea. SURGICAL HISTORY: Patient had a history of hiatal hernia, hemorrhoids done in the past. The patient had some left leg surgery done in the past. PERSONAL HISTORY: Former smoker. PHYSICAL EXAMINATION: Patient was seen in his room. The patient has been intubated. NECK: Supple. Chest has crackles bilaterally. ABDOMEN: Nontender. Femorals are 1+. Marked swelling of the both lower extremities. PLAN: Placement of the dialysis catheter. Risks and complications discussed. Thank you for this consultation. PURVI / GEOVANNYN: [id number] / MTDD
[2020-12-12 23:31] LABS: Glucose,Whole Blood 148 mg/dL (75-99)
[2020-12-13] MEDS: fentaNYL (PF). 1,000 MCG in SODIUM CHLORIDE 0.9% 80 ML IV SCH ×3 (00:11→16:50)
[2020-12-13] MEDS: NOREPINEPHRINE 4 MG in SODIUM CHLORIDE 0.9% 250 ML IV SCH ×2 (04:00→15:50)
[2020-12-13 04:28] LABS: Basophils # (A) 0.1 k/uL (0-0.2); Basophils % (A) 1 %; Eosinophils % (A) 0 %; HCT 33.5 % (39.0-53.0); HGB 11.5 gm/dL (13.0-17.5); Lymphocytes # (A) 0.2 k/uL (1.0-4.8); Lymphocytes % (A) 2 %; MCH 30.2 pg (25.0-35.0); MCHC 34.3 g/dL (31.0-37.0); MCV 87.9 fL (80.0-100.0); Mean Platelet Volume 8.8; Monocytes # (A) 0.6 k/uL (0-1.0); Monocytes % (A) 5 %; Neutrophils # (A) 11.5 k/uL (1.3-7.7); Neutrophils % (A) 92 %; Platelet Count 159 k/uL (150-450); RBC 3.81 m/uL (4.30-5.90); RDW 14.3 % (11.5-15.5); WBC 12.5 k/uL (3.8-10.6)
[2020-12-13 04:59] LABS: Potassium 5.5 mmol/L (3.5-5.1)
[2020-12-13 05:01] LABS: Albumin 2.3 g/dL (3.5-5.0); Total Bilirubin 0.4 mg/dL (0.2-1.3); Total Protein 4.4 g/dL (6.3-8.2)
[2020-12-13] MEDS: INSULIN ASPART (NovoLOG) 100 UNIT/ML VIAL SQ SCH ×8 (05:46→20:33)
[2020-12-13 05:52] LABS: ABG Base Excess -5.2 mmol/L; ABG HCO3 22 mmol/L (21-25); ABG Oxygen Saturation 95.1 % (94-97); ABG PCO2 48 mmHg (35-45); ABG PH 7.27 (7.35-7.45); ABG PO2 87 mmHg (83-108); ABG TCO2 23 mmol/L (19-24)
[2020-12-13 05:53] LABS: Allen Test Performed? no
[2020-12-13] MEDS: CISATRACURIUM 200 MG in SODIUM CHLORIDE 0.9% 180 ML IV SCH (06:01)
--- NOTE | 2020-12-13 06:18 | XR ---
EXAMINATION TYPE: XR chest 1V portable DATE OF EXAM: 12/13/2020 CLINICAL HISTORY: Difficulty breathing progress study. COVID. TECHNIQUE: Single AP portable semiupright view of the chest is obtained. COMPARISON: Chest x-ray from one day earlier and older studies. FINDINGS: Stable endotracheal and orogastric tubes. Stable right internal jugular central venous cat heter. There is background chronic parenchymal changes with persistent bilateral multifocal and confluent op acities. The cardiac silhouette size remains enlarged with atherosclerotic thoracic aorta. Patient remains slightly rotated to the right . IMPRESSION: Chronic parenchymal changes and cardiomegaly with persistent bilateral multifocal and co nfluent opacities consistent with covid-19 infection. Note significant change from one day earlier.
[2020-12-13] MEDS: FUROSEMIDE 100 MG in SODIUM CHLORIDE 0.9% 90 ML IV SCH ×2 (06:55→16:22)
[2020-12-13] MEDS: SYMBICORT 160-4.5 MCG INHALER INHALATION SCH ×2 (07:38→20:05)
[2020-12-13] MEDS: ALBUTEROL HFA INHALER INHALATION PRN ×4 (07:38→20:06)
[2020-12-13 08:09] LABS: Glucose,Whole Blood 171 mg/dL (75-99)
[2020-12-13] MEDS: atenoloL 25 MG TAB PO SCH (08:14)
[2020-12-13] MEDS: SENNOSIDES 8.6 MG TAB PO SCH ×2 (08:14→20:32)
[2020-12-13] MEDS: CHOLECALCIFEROL 25 MCG (1000 IU) TABLET PO SCH (08:14)
[2020-12-13] MEDS: GABAPENTIN 300 MG CAP PO SCH (08:14)
[2020-12-13] MEDS: ZINC SULFATE 220 MG CAP PO SCH (08:15)
[2020-12-13] MEDS: CHLORHEXIDINE GLUCONATE 15 ML CUP MUCOUS MEM SCH ×2 (08:15→20:32)
[2020-12-13] MEDS: PANTOPRAZOLE 40 MG/10 ML VIAL IVP SCH (08:15)
[2020-12-13] MEDS: methylPREDNISolone SOD SUCCI 40 MG/ML 1 ML VIAL IV SCH ×2 (08:15→20:32)
[2020-12-13] MEDS: ENOXAPARIN 30 MG/0.3 ML SYRINGE SQ SCH ×2 (08:15→20:32)
[2020-12-13] MEDS: SODIUM BICARBONATE TAB 650 MG TAB PO SCH (08:15)
[2020-12-13] MEDS: MEROPENEM 1 GM in SODIUM CHLORIDE 0.9% 100 ML IVPB SCH ×2 (08:16→20:32)
--- NOTE | 2020-12-13 10:23 | P.PN ---
Subjective Progress Note Date: 12/13/20 (Critical care time 35 minutes) Principal diagnosis: left renal mass Acute kidney injury Fluid overload Acute on chronic hypoxic respiratory failure with worsening status septic shock Bilateral gram-negative pneumonia due to ESBL E. coli Acute kidney injury Hyperkalemia Uncontrolled diabetes and hyperglycemia Pulmonary fibrosis due to prior extensive COVID-19 pneumonia Sepsis and fever of unknown region Generalized weakness and medical debility Asbestosis lung Advanced diabetes mellitus with hyperglycemia Chronic kidney disease stage III 12/13/2020, patient seen eval examined during the rounds labs reviewed medications reviewed care plan discussed, at industry status the remains marginal 70% oxygen, patient remains on PEEP of 10, tidal volume is 550, rate is 30, ABG reviewed this morning slightly better, patient remains on Nimbex along with fentanyl and propofol, can taper and DC the Nimbex drip, patient had the first episode of hemodialysis yesterday over 2 L I've been removed however patient did require vasopressors during dialysis, currently undergoing second course of hemodialysis again back on levo fed postdialysis yesterday came off of U for drip without any problem issues, patient had ultrasound done which showed left-sided renal mass versus bowel shadow urology has been consulted, patient remains on broad-spectrum antibiotics labs reviewed x-ray reviewed care plan discussed with the staff at length 12/12/2020, patient seen eval examined during the rounds labs reviewed medications reviewed patient remains sedated and medically paralyzed, patient is on the propofol which is down to 40 mics, NIMBEX AND FENTANYL DRIP, HEMODYNAMIC STATUS IS STABLE OFF OF VASOPRESSORS, BLOOD PRESSURE STABLE, respiratory status remains very marginal along with fluid overload and anasarca attempted Lasix strip patient did not respond very well, patient remains on assist control with a rate of 30 tidal volume of 550, 10 of PEEP oxygen is 70%, unable to wean it down saturations marginal 91% only, peak airway pressure up into high 30s now persistent with poor compliance of the chest also component of fluid overload, labs reviewed white cell count remains stable 13,000, hemoglobin stable platelet count is 206,000, ABG revealed pH of 7.21, pCO2 50, pO2 72, sodium 138 production continued to be up to 6.3, BUN and creatinine increase to 96 and 2.6 6, 12/11/2020, patient seen eval reexamined during the rounds labs reviewed medications reviewed care plan discussed, respiratory status the remains marginal however patient started desaturating earlier this morning has a significant amount of respiratory and metabolic acidosis as well, patient has been +3 L in the last 24 hours, discussed with the renal service about increasing diuretics or possibly starting on bicarb drip, renal function however remains stable, patient is sedated and medically paralyzed with fentanyl propofol Nimbex, discussed with staff about lowering down propofol drip to 30-40 mics, chest x-ray from today reviewed consistent with fluid overload fluid appears to be tracking into right major fissure, overall not much change from previous x-ray, patient remains on ventilator setting current setting includes assist control rate of 30, tidal volume of 550, FiO2 increase from 60% to 70%, sugars elevated have been on sliding scale, patient is tolerating tube feed fairly well, patient also noted to have progressive developing anasarca, noted labs white cell count continue to go down to 13,000, arterial blood gas continued magnificent respiratory and metabolic acidosis, significant component of diffusion impairment, hyperkalemia with potassium was 6.1, 12/10/2020, patient seen eval examined in the ICU, he remains intubated and medically sedated and paralyzed on the propofol, name backs and fentanyl drip, levo fed is now came off after fluid boluses, patient has significant metabolic acidosis due to multifactorial processes including acute kidney injury pneumonia and the vasopressors, patient has been on bicarb drip, being adjusted, to feed is in process, hemodynamic status is slightly better, FiO2 is started down to 70%, underwent setting includes assist control rate of 30 to volume of 550 10 of PEEP, arterial blood gases reviewed pH 7.14 pCO2 51 patient was given 1 amp of bicarb with the bicarb drip white cell count is down to 18,800, hemodynamic sta tus slightly stable than before, overall plan is to continue to come down oxygen monitor renal functions closely monitor hyperkalemia, repeat chemistry pending for later on today 12/09/2020, patient seen eval examined continued to have marginal hemodynamics and respiratory status, patient sedated medically paralyzed with Nimbex drip, propofol, fentanyl drip, arterial blood gases done this morning reveal severe metabolic and respiratory acidosis ventilator have been adjusted now new ventricular setting includes assist control rate of 30 to volume of 550 PEEP remains 10 oxygen is down to 90%, patient now on levo fed, we'll try to taper down the levo fed by giving fluids S patient is volume depleted as well and lowering down propofol aim to bring down propofol to 30-40 mics in next 24 hours, fluid will be given 100 mL an hour continuous with fluid boluses boluses of 500 mL/h for 2 hours, patient remains on meropenem, potassium noted to be elevated to 6.4, BUN/creatinine slightly up to 55 1.8, we'll give Kayexalate 2 doses, repeat BMP later on today 12/08/2020, patient seen eval examined during the rounds labs reviewed medications reviewed, critical care time spent 45 minutes, patient developed progressive increased respiratory distress was transferred to the ICU was intubated for respiratory distress, patient has dense bilateral infiltrate, sputum is positive for gram-negative rods, patient is hypotensive requiring fluid boluses likely will required vasopressors as well, for agitation has been placed on propofol for now has been on 75 need to be paralyzed, patient has been also started on fentanyl drip, patient has been on Cefepime for gram-negative pneumonia, final sputum culture have been pending, patient currently on full ventilator support with 100% oxygen and 10 of PEEP, rate is 26, breathing about 28-30, volume is 500, peak pressure in low 30s, blood pressure after the boluses 100/40, respiratory rate is 32, heart rate 81 temperature sats are 91%, 1 cell count is up to 23,000 hemoglobin is stable 14, d-dimer continue to go up 3.97, arterial blood gases revealed pH of 7.24 pCO2 58-year-old O2 of 80 8/2 an hour after on above ventilator setting, potentially was 5.5, BUN/creatinine 45 1.37, patient has a elevated inflammatory parameters including ferritin in 631, LDH is 1658 C-reactive protein 15.9 patient will need a central line, we will sedate and medically paralyzed, will start tube feed, monitor labs closely, patient will be started on Lovenox 30 mg subcu every 12 12/06/2020, patient seen eval reexamined labs reviewed medications reviewed care plan discussed, respiratory status remains marginal denies any chest pain, however more hypoxic currently on 15 L high flow oxygen, remains afebrile hemodynamically stable, oxygen saturation is 93%, check urgent pro-calcitonin as well as d-dimer, if d-dimer is elevated consider doing a VQ scan and duplex ultrasound lower extremity, we will also check an echocardiogram This is a 70-year-old male well-known to me patient has a severe diabetes mellitus and chronic kidney disease as baseline, 2 months ago patient was admitted to hospital with acute COVID-19 pneumonia and respiratory failure patient was on 100% oxygen and BiPAP but however successfully tapered down up to 4 L nasal cannula was discharged home patient did not came back for follow-up, for the last few days has been spiking fever more short of breath oxygen in increase to 5 L nasal cannula came into the hospital for further evaluation chest x-ray not much change his code went testing is negative, patient has been vaccinated for COVID-19 his most recent chest x-ray continued to show cardiomegaly chronic changes, no particular significant change from prior x- rays, patient does have a history of asbestosis lung however Objective - Vital Signs Vital signs: Vital Signs Temp 97.7 F 12/13/20 04:00 Pulse 59 L 12/13/20 10:00 Resp 30 H 12/13/20 10:00 BP 106/58 12/13/20 10:00 Pulse Ox 93 L 12/13/20 10:00 Intake & Output 12/12/20 12/13/20 12/13/20 18:59 06:59 18:59 Intake Total 5730.382 0222.773 362.260 Output Total 2445 630 200 Balance -1424.678 628.773 162.260 Intake: IV 190 253 23 Meropenem 1 gm In Sodium 100 Chloride 0.9% 100 ml @ 33 .3 mls/hr IVPB Q8HR [facility] Rx#:[id number] Sodium Chloride 0.9% 1, 60 220 20 000 ml @ 20 mls/hr IV . Q24H [facility] Rx#:[id number] pressure bag 30 33 3 Intake, IV Titration 630.322 750.773 249.260 Amount Cisatracurium 200 mg In 184.373 28.107 Sodium Chloride 0.9% 180 ml @ 1 MCG/KG/MIN 6.94 mls/hr IV .Q24H [facility] Rx#: [id number] Furosemide 100 mg In 100 197 Sodium Chloride 0.9% 90 ml @ 10 MG/HR 10 mls/hr IV .Q10H [facility] Rx#: [id number] Norepinephrine 4 mg In 37.547 21.153 Sodium Chloride 0.9% 250 ml @ 0.05 MCG/KG/MIN 22. 034 mls/hr IV .[id number] [facility] Rx#:[id number] Sodium Chloride 0.45% 1, 120 000 ml @ 40 mls/hr IV . Q24H [facility] with Sodium Bicarb (1 Meq/ml) 100 ml Rx#:[id number] fentaNYL (PF). 1,000 mcg 72.775 100 100 In Sodium Chloride 0.9% 80 ml @ Per Protocol IV . Q0M [facility] Rx#:[id number] propofoL 1,000 mg In 300.000 269.4 100 Empty Bag 1 bag @ Titrate IV .Q0M [facility] Rx#: [id number] Tube Feeding 140 165 60 Other 60 90 30 Output: Urine 245 630 200 Hemodialysis 2200 Other: Voiding Method Indwelling Catheter Indwelling Catheter ABP, PAP, CO, CI - Last Documented Arterial Blood Pressure 100/48 - Exam - Constitutional General appearance: sedated on full ventilator support - Neck Neck: normal ROM Carotids: bilateral: upstroke normal Thyroid: bilateral: normal size - Respiratory Respiratory: bilateral: diminished, rales - Cardiovascular Rhythm: regular Heart sounds: normal: S1, S2 - Gastrointestinal General gastrointestinal: soft - Integumentary Integumentary: normal turgor - Neurologic Neurologic: CNII-XII intact - Musculoskeletal Musculoskeletal: gait normal, generalized weakness, strength equal bilaterally - Psychiatric Psychiatric: sedated on full ventilator support - Labs CBC & Chem 7: 12/13/20 04:20 12/13/20 04:20 Labs: Abnormal Lab Results - Last 24 Hours (Table) 12/12/20 12/12/20 12/12/20 Range/Units 11:28 16:16 20:01 WBC (3.8-10.6) k/uL RBC (4.30-5.90) m/uL Hgb (13.0-17.5) gm/dL Hct (39.0-53.0) % Neutrophils # (1.3-7.7) k/uL Lymphocytes # (1.0-4.8) k/uL ABG pH (7.35-7.45) ABG pCO2 (35-45) mmHg Potassium (3.5-5.1) mmol/L BUN (9-20) mg/dL Creatinine (0.66-1.25) mg/dL Glucose (74-99) mg/dL POC Glucose (mg/dL) 138 H 125 H 137 H (75-99) mg/dL Calcium (8.4-10.2) mg/dL Total Protein (6.3-8.2) g/dL Albumin (3.5-5.0) g/dL 12/12/20 12/13/20 12/13/20 Range/Units 23:29 04:20 04:20 WBC 12.5 H (3.8-10.6) k/uL RBC 3.81 L (4.30-5.90) m/uL Hgb 11.5 L (13.0-17.5) gm/dL Hct 33.5 L (39.0-53.0) % Neutrophils # 11.5 H (1.3-7.7) k/uL Lymphocytes # 0.2 L (1.0-4.8) k/uL ABG pH (7.35-7.45) ABG pCO2 (35-45) mmHg Potassium 5.5 H (3.5-5.1) mmol/L BUN 88 H (9-20) mg/dL Creatinine 2.68 H (0.66-1.25) mg/dL Glucose 149 H (74-99) mg/dL POC Glucose (mg/dL) 148 H (75-99) mg/dL Calcium 7.0 L (8.4-10.2) mg/dL Total Protein 4.4 L (6.3-8.2) g/dL Albumin 2.3 L (3.5-5.0) g/dL 12/13/20 12/13/20 Range/Units 05:45 08:08 WBC (3.8-10.6) k/uL RBC (4.30-5.90) m/uL Hgb (13.0-17.5) gm/dL Hct (39.0-53.0) % Neutrophils # (1.3-7.7) k/uL Lymphocytes # (1.0-4.8) k/uL ABG pH 7.27 L (7.35-7.45) ABG pCO2 48 H (35-45) mmHg Potassium (3.5-5.1) mmol/L BUN (9-20) mg/dL Creatinine (0.66-1.25) mg/dL Glucose (74-99) mg/dL POC Glucose (mg/dL) 171 H (75-99) mg/dL Calcium (8.4-10.2) mg/dL Total Protein (6.3-8.2) g/dL Albumin (3.5-5.0) g/dL Microbiology - Last 24 Hours (Table) 12/08/20 20:20 Gram Stain - Final Sputum Sputum Culture - Final Anamaria albicans Assessment and Plan Assessment: acute kidney injury with fluid overload and anasarca gram-negative pneumonia due to ESBL E. coli suspected left renal mass Severe sepsis and septic shock due to gram-negative pneumonia Acute on chronic hypoxic and hypercapnic respiratory failure Acute lung injury and ARDS Developing progressive right-sided pleural effusion Acute kidney injury hyperkalemia Metabolic and respiratory acidosis Uncontrolled diabetes Pulmonary fibrosis due to extensive recentCOVID-19 pneumonia Asbestosis lung Advanced diabetes mellitus with hyperglycemia Chronic kidney disease stage III Plan: patient second course of hemodialysis Urology evaluation Taper and DC Nimbex drip monitor off of Nimbex ventilator adjustment status post central line Lovenox 30 mg subcu every 12 tube feed as per protocol Labs chest x-ray and ABG in the morning Plan to sedate and medically paralyzed with propofol, fentanyl, Nimbex, titrated propofol down to 30-40 mics in next 24 hours Vasopressors as needed Fluid boluses as needed Follow-up on [place] cultures including sputum urine and blood continue antibiotics IV steroids Continue supplemental oxygen Deep breathing exercise incentive spirometry Time with Patient: Greater than 30
[2020-12-13 11:32] LABS: Glucose,Whole Blood 147 mg/dL (75-99)
--- NOTE | 2020-12-13 13:17 | PN ---
PROGRESS NOTE Patient is seen for followup for acute kidney injury. He has a history of COVID pneumonia following which patient was doing better discharged home and he was readmitted with worsening shortness of breath, pneumonia, and respiratory failure. He has been on the vent. Subsequently developed acute kidney injury, acute tubular necrosis, nonoliguric along with volume overload and hyperkalemia. The patient was started on hemodialysis for persistent hyperkalemia and volume overload on 12/12/2020. We have removed about 7 L of fluid thus far. The patient is also maintained on Lasix drip and his urine output seems to have picked up to about 50 to 70 mL an hour since last night. Patient was found to have a mass on his left kidney. Apparently there is history of surgery according to the family. I am not sure if he had a partial nephrectomy done on the left side. Urology has been consulted. PHYSICAL EXAMINATION: On examination today, patient remains on the vent. He is seen on hemodialysis, tolerating his treatment fairly well. VITAL SIGNS: Blood pressure systolic around 100-116 mmHg. Heart rate about 59-55 per minute. Patient is afebrile. HEART: S1 and S2. LUNGS: Bilateral breath sounds are heard. ABDOMEN: Soft, nontender. EXTREMITIES: Lower extremities show edema 1+ bilaterally upper and lower extremities. GLASS FINISHER: Cannot be performed. Patient is on Nimbex. LABS: Show sodium 137, potassium 5.5, chloride 107, BUN 88, serum creatinine 2.68, albumin 2.3, hemoglobin 11.5 g/dL. UA shows 1+ protein, blood negative. ASSESSMENT: 1. Acute kidney injury, acute tubular necrosis, secondary to sepsis, hypotension, currently nonoliguric. Urine output improved with Lasix drip which we will continue for now. Patient has however been started on dialysis secondary to persistent hyperkalemia and volume overload. Today is his third treatment. We will plan for dialysis again tomorrow. 2. Hyperkalemia associated with acute kidney injury, metabolic acidosis and hyperglycemia, currently improved, but potassium still remains slightly on the higher side. We will change his potassium bath to 1K bath on dialysis today. 3. Metabolic acidosis associated with acute kidney injury, status post bicarb drip. 4. Vent dependent respiratory failure secondary to pneumonia with recent COVID pneumonia earlier. Current sputum cultures are growing Escherichia coli. 5. Acute hypoxic respiratory failure, remains on the vent requiring high FiO2, currently decreased to about 60 from 70%. 6. Left renal mass with previous history of surgery. Details not known. Will consult Urology. PLAN: Hemodialysis again tomorrow. Increase UF as tolerated. Continue with the Lasix drip for now. Consult Urology and control blood sugars. MMODL / IJN: [id number] /
--- NOTE | 2020-12-13 15:34 | P.PN ---
Subjective Patient is being treated for secondary bacterial pneumonia and he was recently discharged after he was treated for Covid 19. 8. Patient is a pleasant 70-year-old male came in with the complaints of shortness of breath on 4 L of oxygen and oxygen saturation is going down to 78%. Patient is comparing of cough with yellowish sputum production. Patient was having high-grade fevers patient denied any dysuria patient denied nausea vomiting. Patient was discharged from the hospital after 3 week treatment for Covid 19 patient was discharged earlier this month. Patient came back positive again on of this month patient did receive both Covid vaccines. Patient's creatinine at the time of discharge is around 1.3 presently around 1.3. Patient is bit hyponatremic. Patient at a chest x-ray which is showing bilateral infiltrates consistent with Covid 19, although infiltrates are mildly better compared to the previous x-rays. 12/05/2020 Patient continues to have fevers is pretty status appears to have worsened a bit and patient is an 5 L of oxygen is still bit hypoxic and patient is in mild respiratory distress. Patient is being treated for secondary bacterial pneumonia. Repeat Covid 19 PCR is negative now. Patient blood sugars are well controlled. Dec 09 2020 Patient respiratory status worsened patient went into septic shock was subsequently transferred to intensive care unit with sputum cultures are showing ESBL E. coli patient was started on meropenem. Patient's ABGs consistent with the acidosis and both hypoxic as well as hypercapnic respiratory failure patient is presently on ventilator support. Assist control ventilation with PEEP of 10 have out of 90% set up respiratory rate of around 20 and tidal volume of 550. Patient is also numb nor- epinephrine. Patient is in septic shock. has very minimal urine output patient appears to have acute to the necrosis and patient has elevated creatinine of 2.15. Patient's potassium is elevated to 6.4 received Late has come down to 5.8. Patient is on the propofol sedation patient is also receiving systemic steroids. Atenolol and the Norvasc will be discontinued 12/10/2020 Patient remains on ventilator support with set up respiratory to for 30, tidal volume of 550, PEEP of 10 and FiO2 of 70% patient was on FiO2 of 100% yesterday. Patient remains on the propofol and Nimbex. Patient is off the levo fed. Remains on meropenem since the December 08. 12/11/2020 Patient remains acidotic with hypercapnia, respiratory is doses. Patient remai ns on the same and settings as yesterday. Patient is hypokalemic nephrology is managing this. Patient creatinine remained stable at 2.2. Patient's blood sugars are high will add short-acting insulin every 6 hours patient is receiving OG tube feedings, Nepro. Patient is back on norepinephrine. His leukocytosis although can you to improve. 12/12/2020 Visit acidosis improved patient remains in the same symptoms when settings as yesterday. Patient was started on hemodialysis because of persistent hyperkalemia volume overload poor urine output. Patient chest x-ray showing pulmonary edema patient has extensive anasarca. Patient is presently not on norepinephrine. Patient is on IV Lasix drip. 12/13/2020 and patient appears to have improvement in overall clinical condition patient had hemodialysis with removal of around 2.5 L today patient started urinating again. Patient has good urine output today. Patient still has peripheral edema patient FiO2 requirements have come down and patient is presently on 60% FiO2 did patient acidosis improved and pH is close to normal Review of systems: Unable to obtain due to his clinical condition. Potassium is 5.5. All inpatient medications were reviewed and appropriate changes in these medications as dictated in the interval history and assessment and plan. Objective - Vital Signs Vital signs: Vital Signs Temp 97.6 F 12/13/20 11:18 Pulse 57 L 12/13/20 15:00 Resp 30 H 12/13/20 15:00 BP 123/55 12/13/20 15:00 Pulse Ox 92 L 12/13/20 15:00 Intake & Output 12/12/20 12/13/20 12/13/20 18:59 06:59 18:59 Intake Total 1542.599 2710.773 530.820 Output Total 2445 630 3000 Balance -1424.678 628.773 -2469.180 Weight 115.666 kg Intake: IV 190 253 35 Meropenem 1 gm In Sodium 100 Chloride 0.9% 100 ml @ 33 .3 mls/hr IVPB Q8HR [facility] Rx#:[id number] Sodium Chloride 0.9% 1, 60 220 20 000 ml @ 20 mls/hr IV . Q24H [facility] Rx#:[id number] pressure bag 30 33 15 Intake, IV Titration 630.322 750.773 300.820 Amount Cisatracurium 200 mg In 184.373 28.107 Sodium Chloride 0.9% 180 ml @ 1 MCG/KG/MIN 6.94 mls/hr IV .Q24H [facility] Rx#: [id number] Furosemide 100 mg In 100 197 Sodium Chloride 0.9% 90 ml @ 10 MG/HR 10 mls/hr IV .Q10H [facility] Rx#: [id number] Norepinephrine 4 mg In 37.547 72.713 Sodium Chloride 0.9% 250 ml @ 0.05 MCG/KG/MIN 22. 034 mls/hr IV .[id number] [facility] Rx#:[id number] Sodium Chloride 0.45% 1, 120 000 ml @ 40 mls/hr IV . Q24H [facility] with Sodium Bicarb (1 Meq/ml) 100 ml Rx#:[id number] fentaNYL (PF). 1,000 mcg 72.775 100 100 In Sodium Chloride 0.9% 80 ml @ Per Protocol IV . Q0M [facility] Rx#:[id number] propofoL 1,000 mg In 300.000 269.4 100 Empty Bag 1 bag @ Titrate IV .Q0M [facility] Rx#: [id number] Tube Feeding 140 165 135 Other 60 90 60 Output: Urine 245 630 500 Hemodialysis 2200 2500 Other: Voiding Method Indwelling Catheter Indwelling Catheter ABP, PAP, CO, CI - Last Documented Arterial Blood Pressure 123/47 - Exam PHYSICAL EXAMINATION: GENERAL: Patient is intubated sedated HEENT: Pupils are round and equally reacting to light. EOMI. No scleral icterus. No conjunctival pallor. Normocephalic, atraumatic. No pharyngeal erythema. No thyromegaly. CARDIOVASCULAR: S1 and S2 present. No murmurs, rubs, or gallops. PULMONARY: Chest is clear to auscultation, no wheezing or crackles. ABDOMEN: Soft, nontender, nondistended, normoactive bowel sounds. No palpable organomegaly. MUSCULOSKELETAL: No joint swelling or deformity. EXTREMITIES: No cyanosis, clubbing, or pedal edema. NEUROLOGICAL: Sedated. SKIN: No rashes. - Labs CBC & Chem 7: 12/13/20 04:20 12/13/20 04:20 Labs: Abnormal Lab Results - Last 24 Hours (Table) 12/12/20 12/12/20 12/12/20 Range/Units 16:16 20:01 23:29 WBC (3.8-10.6) k/uL RBC (4.30-5.90) m/uL Hgb (13.0-17.5) gm/dL Hct (39.0-53.0) % Neutrophils # (1.3-7.7) k/uL Lymphocytes # (1.0-4.8) k/uL ABG pH (7.35-7.45) ABG pCO2 (35-45) mmHg Potassium (3.5-5.1) mmol/L BUN (9-20) mg/dL Creatinine (0.66-1.25) mg/dL Glucose (74-99) mg/dL POC Glucose (mg/dL) 125 H 137 H 148 H (75-99) mg/dL Calcium (8.4-10.2) mg/dL Total Protein (6.3-8.2) g/dL Albumin (3.5-5.0) g/dL 12/13/20 12/13/20 12/13/20 Range/Units 04:20 04:20 05:45 WBC 12.5 H (3.8-10.6) k/uL RBC 3.81 L (4.30-5.90) m/uL Hgb 11.5 L (13.0-17.5) gm/dL Hct 33.5 L (39.0-53.0) % Neutrophils # 11.5 H (1.3-7.7) k/uL Lymphocytes # 0.2 L (1.0-4.8) k/uL ABG pH 7.27 L (7.35-7.45) ABG pCO2 48 H (35-45) mmHg Potassium 5.5 H (3.5-5.1) mmol/L BUN 88 H (9-20) mg/dL Creatinine 2.68 H (0.66-1.25) mg/dL Glucose 149 H (74-99) mg/dL POC Glucose (mg/dL) (75-99) mg/dL Calcium 7.0 L (8.4-10.2) mg/dL Total Protein 4.4 L (6.3-8.2) g/dL Albumin 2.3 L (3.5-5.0) g/dL 12/13/20 12/13/20 Range/Units 08:08 11:31 WBC (3.8-10.6) k/uL RBC (4.30-5.90) m/uL Hgb (13.0-17.5) gm/dL Hct (39.0-53.0) % Neutrophils # (1.3-7.7) k/uL Lymphocytes # (1.0-4.8) k/uL ABG pH (7.35-7.45) ABG pCO2 (35-45) mmHg Potassium (3.5-5.1) mmol/L BUN (9-20) mg/dL Creatinine (0.66-1.25) mg/dL Glucose (74-99) mg/dL POC Glucose (mg/dL) 171 H 147 H (75-99) mg/dL Calcium (8.4-10.2) mg/dL Total Protein (6.3-8.2) g/dL Albumin (3.5-5.0) g/dL Assessment and Plan Plan: 1 septic shock: Patient probably has a secondary bacterial pneumonia, patient's (a positive for E. coli which is ESBL E. coli patient is presently on meropenem. Shock improved patient is off pressor support as mentioned above patient is on ventilatory support. Patient most probably has a post Covid bacterial pneumonia. COVID-19 PCR is negative on this hospitalization, pulmonary and infectious disease are following the patient. -Acute hypoxic respiratory failure secondary to septic shock patient is presently on norepinephrine -Hyperkalemia secondary to acute renal failure. Patient was started on hemodialysis today -Acute renal failure secondary to acute tubular necrosis from septic shock, started on hemodialysis, urine output is improving -Volume overload secondary to renal failure patient was initiated on hemodialysis -elevated d-dimer secondary to pneumonia . -Acute on chronic hypoxic respiratory failure secondary to pneumonia. -History of asbestosis -Chronic kidney disease stage II to 3. Probable diabetic nephropathy --History of DVT in the past -Type 2 diabetes mellitus: Well controlled continue with present regimen of long-acting insulin and short-acting insulin every 6 hours. -Hypertension -Sleep apnea -Diabetic peripheral neuropathy -DVT prophylaxis with subcutaneous heparin
[2020-12-13 16:25] LABS: Glucose,Whole Blood 133 mg/dL (75-99)
--- NOTE | 2020-12-13 18:41 | PN ---
PROGRESS NOTE DATE OF SERVICE: 12/13/2020 REASON FOR FOLLOWUP: Pneumonia. INTERVAL HISTORY: The patient is afebrile. The patient is hemodynamically stable. Did require pressor support at the time of dialysis, which the patient has tolerated. No significant purulent secretions through the ET or any diarrhea per the nursing staff. The patient is currently sedated on the vent. PHYSICAL EXAMINATION: Blood pressure 123/55 with a pulse of 57. Temperature 97.6. He is 92% on 50% FIO2. General description is an elderly male lying in in no distress. Respiratory system: Unlabored breathing, decreased breath sounds at the bases. No wheeze. HEART: S1, S2. Regular rate and rhythm. ABDOMEN: Soft, no guarding, no distention. EXTREMITIES: No edema of the feet. LABS: Hemoglobin is 11.9, white count 12.5, BUN of 88, creatinine is 2.68. DIAGNOSTIC IMPRESSION AND PLAN: Patient with acute respiratory failure which is multifactorial in this patient who does have a component of pneumonia. Sputum was ESBL E coli. Possible aspiration etiology in this patient with recent history of infection. Patient also has renal failure, currently covered with meropenem to continue along with supportive care and monitor clinical course closely. MMODL / IJN: [id number] /
--- NOTE | 2020-12-13 19:32 | P.GSCN ---
History of Present Illness Consult date: 12/13/20 Reason for Consult: Left renal mass History of present illness: This is a 70-year-old male admitted to the hospital with sepsis secondary to ba cterial pneumonia. Urology is consulted for finding of possible left renal mass on renal bladder ultrasound. Renal bladder also was obtained due to his acute kidney injury. 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 Garay. He follows up with Dr. Peterson for postop management of his kidney cancer. Patient is currently intubated and sedated. No evidence of gross hematuria. Of note he had a recent CT chest in 10/2020 that showed evidence of a possible pulmonary nodule. On renal bladder ultrasound the questionable mass measured 2.5 cm on the left Review of Systems ROS unobtainable: due to endotracheal tube Past Medical History Past Medical History: Asthma, Chest Pain / Angina, Diabetes Mellitus, Deep Vein Thrombosis (DVT), GERD/Reflux, Hypertension, Pneumonia, Sleep Apnea/CPAP/BIPAP Additional Past Medical History / Comment(s): PAST HX INCLUDES: cardiac arrhythmia, hiatal hernia, hemorrhoids, Wound left foot,peripheral neuropathy, anemia, ,generalized vitiligo.ASBESTOSIS, TENDONS REMOVED FROM E 04/30/16, no cpap use History of Any Multi-Drug Resistant Organisms: ESBL, MRSA Year Discovered:: 12/06/20 ESBL-E.coli; 03/26/14 MRSA MDRO Source:: ESBL-Sputum; MRSA Left Foot Past Surgical History: Adenoidectomy, Appendectomy, Orthopedic Surgery, Tonsillectomy Additional Past Surgical History / Comment(s): Amputation great toe and 3rd toe left foot, bilateral rotator cuff. TENDONS REMOVED FROM E 04/30/16 Past Anesthesia/Blood Transfusion Reactions: No Reported Reaction Past Psychological History: Anxiety, Depression Smoking Status: Former smoker Past Alcohol Use History: None Reported Past Drug Use History: None Reported - Past Family History Father Family Medical History: CVA/TIA Additional Family Medical History / Comment(s): several cva Mother Family Medical History: Asthma, COPD Sister(s) Family Medical History: Cancer Additional Family Medical History / Comment(s): Breast Cancer Brother(s) Family Medical History: Cancer Additional Family Medical History / Comment(s): Prostate and bladder Cancer Medications and Allergies Home Medications Medication Instructions Recorded Confirmed Type Gabapentin [Neurontin] 300 mg PO DAILY 10/20/19 12/04/20 History Insulin Aspart [NovoLOG Flexpen] 10 units SQ AC-TID 10/20/19 12/04/20 History atenoloL [Tenormin] 25 mg PO DAILY 10/20/19 12/04/20 History Sildenafil Citrate 100 mg PO DAILY PRN 10/29/20 12/04/20 History Acetaminophen Tab [Tylenol] 650 mg PO Q6HR PRN tab 11/11/20 12/04/20 Rx Albuterol Inhaler [Ventolin Hfa 2 puff INHALATION RT-TID 30 Days 11/11/20 12/04/20 Rx Inhaler] #1 puff Albuterol Inhaler [Ventolin Hfa 2 puff INHALATION RT-TID PRN puff 11/11/20 12/04/20 Rx Inhaler] Aspirin 81 mg PO DAILY 30 Days #30 chewable 11/11/20 12/04/20 Rx Cholecalciferol [Vitamin D3 (25 100 mcg PO DAILY 30 Days #120 11/11/20 12/04/20 Rx Mcg = 1000 Iu)] tablet Pantoprazole [Protonix] 40 mg PO AC-BRKFST 30 Days #30 11/11/20 12/04/20 Rx tablet. Zinc Sulfate [Orazinc] 220 mg PO DAILY 30 Days #30 cap 11/11/20 12/04/20 Rx amLODIPine [Norvasc] 10 mg PO DAILY 30 Days #30 tab 11/11/20 12/04/20 Rx Insulin Glargine [Lantus] 30 unit SQ HS 12/04/20 12/04/20 History Allergies Allergy/AdvReac Type Severity Reaction Status Date / Time fentanyl AdvReac Severe Nausea & Verified 12/04/20 15:53 Vomiting hydrocodone bitartrate AdvReac Nausea & Verified 12/04/20 15:53 [From [place]] Vomiting vancomycin AdvReac Unknown Verified 12/04/20 15:53 Surgical - Exam Vital Signs Temp Pulse Resp BP Pulse Ox 101 F H 95 21 153/78 93 L 12/04/20 14:02 12/04/20 14:02 12/04/20 14:02 12/04/20 14:02 12/04/20 14:02 - General no distress - Respiratory intubated - Genitourinary urine is clear Results - Labs 12/13/20 04:20 12/13/20 04:20 Abnormal Lab Results - Last 24 Hours (Table) 12/12/20 12/12/20 12/13/20 Range/Units 20:01 23:29 04:20 WBC 12.5 H (3.8-10.6) k/uL RBC 3.81 L (4.30-5.90) m/uL Hgb 11.5 L (13.0-17.5) gm/dL Hct 33.5 L (39.0-53.0) % Neutrophils # 11.5 H (1.3-7.7) k/uL Lymphocytes # 0.2 L (1.0-4.8) k/uL ABG pH (7.35-7.45) ABG pCO2 (35-45) mmHg Potassium (3.5-5.1) mmol/L BUN (9-20) mg/dL Creatinine (0.66-1.25) mg/dL Glucose (74-99) mg/dL POC Glucose (mg/dL) 137 H 148 H (75-99) mg/dL Calcium (8.4-10.2) mg/dL Total Protein (6.3-8.2) g/dL Albumin (3.5-5.0) g/dL 12/13/20 12/13/20 12/13/20 Range/Units 04:20 05:45 08:08 WBC (3.8-10.6) k/uL RBC (4.30-5.90) m/uL Hgb (13.0-17.5) gm/dL Hct (39.0-53.0) % Neutrophils # (1.3-7.7) k/uL Lymphocytes # (1.0-4.8) k/uL ABG pH 7.27 L (7.35-7.45) ABG pCO2 48 H (35-45) mmHg Potassium 5.5 H (3.5-5.1) mmol/L BUN 88 H (9-20) mg/dL Creatinine 2.68 H (0.66-1.25) mg/dL Glucose 149 H (74-99) mg/dL POC Glucose (mg/dL) 171 H (75-99) mg/dL Calcium 7.0 L (8.4-10.2) mg/dL Total Protein 4.4 L (6.3-8.2) g/dL Albumin 2.3 L (3.5-5.0) g/dL 12/13/20 12/13/20 Range/Units 11:31 16:24 WBC (3.8-10.6) k/uL RBC (4.30-5.90) m/uL Hgb (13.0-17.5) gm/dL Hct (39.0-53.0) % Neutrophils # (1.3-7.7) k/uL Lymphocytes # (1.0-4.8) k/uL ABG pH (7.35-7.45) ABG pCO2 (35-45) mmHg Potassium (3.5-5.1) mmol/L BUN (9-20) mg/dL Creatinine (0.66-1.25) mg/dL Glucose (74-99) mg/dL POC Glucose (mg/dL) 147 H 133 H (75-99) mg/dL Calcium (8.4-10.2) mg/dL Total Protein (6.3-8.2) g/dL Albumin (3.5-5.0) g/dL Diabetes panel 12/13/20 Range/Units 04:20 Sodium 137 (137-145) mmol/L Potassium 5.5 H (3.5-5.1) mmol/L Chloride 107 (98-107) mmol/L Carbon Dioxide 22 (22-30) mmol/L BUN 88 H (9-20) mg/dL Creatinine 2.68 H (0.66-1.25) mg/dL Glucose 149 H (74-99) mg/dL Calcium 7.0 L (8.4-10.2) mg/dL AST 28 (17-59) U/L ALT 15 (4-49) U/L Alkaline Phosphatase 89 (38-126) U/L Total Protein 4.4 L (6.3-8.2) g/dL Albumin 2.3 L (3.5-5.0) g/dL Calcium panel 12/13/20 Range/Units 04:20 Calcium 7.0 L (8.4-10.2) mg/dL Albumin 2.3 L (3.5-5.0) g/dL Pituitary panel 12/13/20 Range/Units 04:20 Sodium 137 (137-145) mmol/L Potassium 5.5 H (3.5-5.1) mmol/L Chloride 107 (98-107) mmol/L Carbon Dioxide 22 (22-30) mmol/L BUN 88 H (9-20) mg/dL Creatinine 2.68 H (0.66-1.25) mg/dL Glucose 149 H (74-99) mg/dL Calcium 7.0 L (8.4-10.2) mg/dL Adrenal panel 12/13/20 Range/Units 04:20 Sodium 137 (137-145) mmol/L Potassium 5.5 H (3.5-5.1) mmol/L Chloride 107 (98-107) mmol/L Carbon Dioxide 22 (22-30) mmol/L BUN 88 H (9-20) mg/dL Creatinine 2.68 H (0.66-1.25) mg/dL Glucose 149 H (74-99) mg/dL Calcium 7.0 L (8.4-10.2) mg/dL Total Bilirubin 0.4 (0.2-1.3) mg/dL AST 28 (17-59) U/L ALT 15 (4-49) U/L Alkaline Phosphatase 89 (38-126) U/L Total Protein 4.4 L (6.3-8.2) g/dL Albumin 2.3 L (3.5-5.0) g/dL Assessment and Plan Assessment: 70-year-old male with history of right-sided clear cell carcinoma status post robotic right partial nephrectomy by called back in November 2019. Admitted to the hospital with sepsis secondary to bacterial pneumonia, had a renal bladder ultrasound that showed a possible 2.5 cm left renal mass, of note he also had a CT chest in October which showed a possible pulmonary nodule. He will need contrasted images either MRI with contrast or CT abdomen with contrast to better evaluate the left renal lesion. But of note given his acute kidney injury we'll hold off on doing that at this time. I discussed with his daughter Blanca over the phone the finding of the ultrasound. At this time I recommend him to follow up with Dr. Austin as an outpatient, at that point a contrasted images can be ordered as an outpatient if patient's clinically improves. His daughter was agreeable with the plan
[2020-12-13 20:26] LABS: Glucose,Whole Blood 146 mg/dL (75-99)
[2020-12-13] MEDS: INSULIN DETEMIR (LEVEMIR) 100 UNIT/ML SYR SQ SCH (20:46)
[2020-12-14 00:17] LABS: Glucose,Whole Blood 155 mg/dL (75-99)
[2020-12-14] MEDS: NOREPINEPHRINE 4 MG in SODIUM CHLORIDE 0.9% 250 ML IV SCH ×2 (00:17→18:35)
[2020-12-14] MEDS: INSULIN ASPART (NovoLOG) 100 UNIT/ML VIAL SQ SCH ×12 (00:17→23:21)
[2020-12-14] MEDS: FUROSEMIDE 100 MG in SODIUM CHLORIDE 0.9% 90 ML IV SCH ×3 (01:28→19:18)
[2020-12-14] MEDS: fentaNYL (PF). 1,000 MCG in SODIUM CHLORIDE 0.9% 80 ML IV SCH ×3 (01:29→18:54)
[2020-12-14 04:20] LABS: Basophils # (A) 0.1 k/uL (0-0.2); Basophils % (A) 1 %; Eosinophils % (A) 0 %; HCT 38.7 % (39.0-53.0); HGB 12.6 gm/dL (13.0-17.5); Lymphocytes # (A) 0.3 k/uL (1.0-4.8); Lymphocytes % (A) 3 %; MCH 28.5 pg (25.0-35.0); MCHC 32.6 g/dL (31.0-37.0); MCV 87.7 fL (80.0-100.0); Monocytes # (A) 0.5 k/uL (0-1.0); Monocytes % (A) 5 %; Neutrophils # (A) 10.6 k/uL (1.3-7.7); Neutrophils % (A) 90 %; Platelet Count 179 k/uL (150-450); RBC 4.41 m/uL (4.30-5.90); RDW 14.9 % (11.5-15.5); WBC 11.7 k/uL (3.8-10.6)
[2020-12-14 04:21] LABS: Albumin 2.4 g/dL (3.5-5.0); Calcium 7.3 mg/dL (8.4-10.2); Potassium 4.9 mmol/L (3.5-5.1); Total Bilirubin 0.4 mg/dL (0.2-1.3); Total Protein 4.7 g/dL (6.3-8.2)
[2020-12-14] MEDS: CISATRACURIUM 200 MG in SODIUM CHLORIDE 0.9% 180 ML IV SCH (04:41)
[2020-12-14 06:03] LABS: ABG Base Excess -0.1 mmol/L; ABG HCO3 26 mmol/L (21-25); ABG Oxygen Saturation 95.9 % (94-97); ABG PCO2 47 mmHg (35-45); ABG PH 7.35 (7.35-7.45); ABG PO2 87 mmHg (83-108); ABG TCO2 27 mmol/L (19-24); Allen Test Performed? Yes
--- NOTE | 2020-12-14 07:18 | XR ---
EXAMINATION TYPE: XR chest 1V portable DATE OF EXAM: 12/14/2020 COMPARISON: 12/13/2020 HISTORY: Tube placement TECHNIQUE: Single frontal view of the chest is obtained. FINDINGS: There is an ET tube 3.9 cm above the chrissy. There is an NG tube within the stomach. There is a left right-sided central venous catheter the tip of which is in the right atrium. There is diffuse interstitial opacity in both lungs essentially unchanged compared to the prior study . There is no pneumothorax or large pleural effusion. IMPRESSION: ET tube 3.9 cm above the chrissy. Diffuse interstitial infiltrates unchanged.
[2020-12-14] MEDS: SYMBICORT 160-4.5 MCG INHALER INHALATION SCH ×2 (08:16→18:56)
[2020-12-14] MEDS: ALBUTEROL HFA INHALER INHALATION PRN ×4 (08:16→18:56)
[2020-12-14] MEDS: SENNOSIDES 8.6 MG TAB PO SCH ×2 (08:19→19:43)
[2020-12-14] MEDS: MEROPENEM 1 GM in SODIUM CHLORIDE 0.9% 100 ML IVPB SCH ×2 (08:19→19:43)
[2020-12-14] MEDS: CHLORHEXIDINE GLUCONATE 15 ML CUP MUCOUS MEM SCH ×2 (08:19→19:43)
[2020-12-14] MEDS: methylPREDNISolone SOD SUCCI 40 MG/ML 1 ML VIAL IV SCH ×2 (08:19→19:43)
[2020-12-14] MEDS: CHOLECALCIFEROL 25 MCG (1000 IU) TABLET PO SCH (08:20)
[2020-12-14] MEDS: PANTOPRAZOLE 40 MG/10 ML VIAL IVP SCH (08:20)
[2020-12-14] MEDS: ZINC SULFATE 220 MG CAP PO SCH (08:20)
[2020-12-14] MEDS: ENOXAPARIN 30 MG/0.3 ML SYRINGE SQ SCH ×2 (08:20→19:43)
[2020-12-14 08:55] LABS: Glucose,Whole Blood 145 mg/dL (75-99)
[2020-12-14] MEDS: atenoloL 25 MG TAB PO SCH (09:02)
--- NOTE | 2020-12-14 10:19 | P.PN ---
Subjective Progress Note Date: 12/14/20 (critical care time 35 minutes) Principal diagnosis: left renal mass Acute kidney injury Fluid overload Acute on chronic hypoxic respiratory failure with worsening status septic shock Bilateral gram-negative pneumonia due to ESBL E. coli Acute kidney injury Hyperkalemia Uncontrolled diabetes and hyperglycemia Pulmonary fibrosis due to prior extensive COVID-19 pneumonia Sepsis and fever of unknown region Generalized weakness and medical debility Asbestosis lung Advanced diabetes mellitus with hyperglycemia Chronic kidney disease stage III 12/14/2020, patient seen eval examined during the rounds overall respiratory status remains marginal patient is a however down to 50% oxygen saturation is 93%, he is sedated he is off of medical paralysis, currently is on propofol and fentanyl drip, vent setting is stable remains on assist control rate of 30 tidal volume 550, PEEP is 10 FiO2 is 50%, patient had a started making urine he is hemodialysis 2 [id number] currently is on 10 mg Lasix strip, labs and radiographic studies reviewed, x-ray shows diffuse bilateral infiltrate and no significant change, arterial blood gas significantly improved pH is 7.35 pCO2 47 pO2 87, white cell count down to 11,000, 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 new mass has been noted, urology has been following pending further evaluation until he stabilized 12/13/2020, patient seen eval examined during the rounds labs reviewed medicati ons reviewed care plan discussed, at industry status the remains marginal 70% oxygen, patient remains on PEEP of 10, tidal volume is 550, rate is 30, ABG reviewed this morning slightly better, patient remains on Nimbex along with fentanyl and propofol, can taper and DC the Nimbex drip, patient had the first episode of hemodialysis yesterday over 2 L I've been removed however patient did require vasopressors during dialysis, currently undergoing second course of hemodialysis again back on levo fed postdialysis yesterday came off of U for drip without any problem issues, patient had ultrasound done which showed left- sided renal mass versus bowel shadow urology has been consulted, patient remains on broad-spectrum antibiotics labs reviewed x-ray reviewed care plan discussed with the staff at length 12/12/2020, patient seen eval examined during the rounds labs reviewed medications reviewed patient remains sedated and medically paralyzed, patient is on the propofol which is down to 40 mics, NIMBEX AND FENTANYL DRIP, HEMODYNAMIC STATUS IS STABLE OFF OF VASOPRESSORS, BLOOD PRESSURE STABLE, respiratory status remains very marginal along with fluid overload and anasarca attempted Lasix str ip patient did not respond very well, patient remains on assist control with a rate of 30 tidal volume of 550, 10 of PEEP oxygen is 70%, unable to wean it down saturations marginal 91% only, peak airway pressure up into high 30s now persistent with poor compliance of the chest also component of fluid overload, labs reviewed white cell count remains stable 13,000, hemoglobin stable platelet count is 206,000, ABG revealed pH of 7.21, pCO2 50, pO2 72, sodium 138 production continued to be up to 6.3, BUN and creatinine increase to 96 and 2.66, 12/11/2020, patient seen eval reexamined during the rounds labs reviewed medications reviewed care plan discussed, respiratory status the remains margina l however patient started desaturating earlier this morning has a significant amount of respiratory and metabolic acidosis as well, patient has been +3 L in the last 24 hours, discussed with the renal service about increasing diuretics or possibly starting on bicarb drip, renal function however remains stable, patient is sedated and medically paralyzed with fentanyl propofol Nimbex, discussed with staff about lowering down propofol drip to 30-40 mics, chest x- ray from today reviewed consistent with fluid overload fluid appears to be tracking into right major fissure, overall not much change from previous x-ray, patient remains on ventilator setting current setting includes assist control rate of 30, tidal volume of 550, FiO2 increase from 60% to 70%, sugars elevated have been on sliding scale, patient is tolerating tube feed fairly well, patient also noted to have progressive developing anasarca, noted labs white cell count continue to go down to 13,000, arterial blood gas continued magnificent respiratory and metabolic acidosis, significant component of diffusion impairment, hyperkalemia with potassium was 6.1, 12/10/2020, patient seen eval examined in the ICU, he remains intubated and medically sedated and paralyzed on the propofol, name backs and fentanyl drip, levo fed is now came off after fluid boluses, patient has significant metabolic acidosis due to multifactorial processes including acute kidney injury pneumonia and the vasopressors, patient has been on bicarb drip, being adjusted, to feed is in process, hemodynamic status is slightly better, FiO2 is started down to 70%, underwent setting includes assist control rate of 30 to volume of 550 10 of PEEP, arterial blood gases reviewed pH 7.14 pCO2 51 patient was given 1 amp of bicarb with the bicarb drip white cell count is down to 18,800, hemodynamic status slightly stable than before, overall plan is to continue to come down oxygen monitor renal functions closely monitor hyperkalemia, repeat chemistry pending for later on today 12/09/2020, patient seen eval examined continued to have marginal hemodynamics and respiratory status, patient sedated medically paralyzed with Nimbex drip, propofol, fentanyl drip, arterial blood gases done this morning reveal severe metabolic and respiratory acidosis ventilator have been adjusted now new ventricular setting includes assist control rate of 30 to volume of 550 PEEP remains 10 oxygen is down to 90%, patient now on levo fed, we'll try to taper down the levo fed by giving fluids S patient is volume depleted as well and lowering down propofol aim to bring down propofol to 30-40 mics in next 24 hours, fluid will be given 100 mL an hour continuous with fluid boluses boluses of 500 mL/h for 2 hours, patient remains on meropenem, potassium noted to be elevated to 6.4, BUN/creatinine slightly up to 55 1.8, we'll give Kayexalate 2 doses, repeat BMP later on today 12/08/2020, patient seen eval examined during the rounds labs reviewed medications reviewed, critical care time spent 45 minutes, patient developed progressive increased respiratory distress was transferred to the ICU was intubated for respiratory distress, patient has dense bilateral infiltrate, sputum is positive for gram-negative rods, patient is hypotensive requiring fluid boluses likely will required vasopressors as well, for agitation has been placed on propofol for now has been on 75 need to be paralyzed, patient has been also started on fentanyl drip, patient has been on Cefepime for gram-negative pneumonia, final sputum culture have been pending, patient currently on full ve ntilator support with 100% oxygen and 10 of PEEP, rate is 26, breathing about 28-30, volume is 500, peak pressure in low 30s, blood pressure after the boluses 100/40, respiratory rate is 32, heart rate 81 temperature sats are 91%, 1 cell count is up to 23,000 hemoglobin is stable 14, d-dimer continue to go up 3.97, arterial blood gases revealed pH of 7.24 pCO2 58-year-old O2 of 80 8/2 an hour after on above ventilator setting, potentially was 5.5, BUN/creatinine 45 1.37, patient has a elevated inflammatory parameters including ferritin in 631, LDH is 1658 C-reactive protein 15.9 patient will need a central line, we will sedate and medically paralyzed, will start tube feed, monitor labs closely, patient will be started on Lovenox 30 mg subcu every 12 12/06/2020, patient seen eval reexamined labs reviewed medications reviewed care plan discussed, respiratory status remains marginal denies any chest pain, however more hypoxic currently on 15 L high flow oxygen, remains afebrile hemodynamically stable, oxygen saturation is 93%, check urgent pro-calcitonin as well as d-dimer, if d-dimer is elevated consider doing a VQ scan and duplex ultrasound lower extremity, we will also check an echocardiogram This is a 70-year-old male well-known to me patient has a severe diabetes mellitus and chronic kidney disease as baseline, 2 months ago patient was admitted to hospital with acute COVID-19 pneumonia and respiratory failure patient was on 100% oxygen and BiPAP but however successfully tapered down up to 4 L nasal cannula was discharged home patient did not came back for follow-up, for the last few days has been spiking fever more short of breath oxygen in increase to 5 L nasal cannula came into the hospital for further evaluation chest x-ray not much change his code went testing is negative, patient has been vaccinated for COVID-19 his most recent chest x-ray continued to show c ardiomegaly chronic changes, no particular significant change from prior x-rays, patient does have a history of asbestosis lung however Objective - Vital Signs Vital signs: Vital Signs Temp 97.4 F L 12/14/20 04:00 Pulse 65 12/14/20 10:00 Resp 30 H 12/14/20 10:00 BP 152/69 12/14/20 10:00 Pulse Ox 91 L 12/14/20 10:00 Intake & Output 12/13/20 12/14/20 12/14/20 18:59 06:59 18:59 Intake Total 1020.530 982.635 140 Output Total 3280 1530 1625 Balance -2259.470 -547.365 -2966 Weight 115.666 kg Intake: IV 44 256 80 Sodium Chloride 0.9% 1, 20 220 80 000 ml @ 20 mls/hr IV . Q24H [facility] Rx#:[id number] pressure bag 24 36 Intake, IV Titration 706.530 456.635 Amount Cisatracurium 200 mg In 28.107 Sodium Chloride 0.9% 180 ml @ 1 MCG/KG/MIN 6.94 mls/hr IV .Q24H [facility] Rx#: [id number] Furosemide 100 mg In 94.5 91 Sodium Chloride 0.9% 90 ml @ 10 MG/HR 10 mls/hr IV .Q10H [facility] Rx#: [id number] Norepinephrine 4 mg In 72.713 Sodium Chloride 0.9% 250 ml @ 0.05 MCG/KG/MIN 22. 034 mls/hr IV .[id number] [facility] Rx#:[id number] fentaNYL (PF). 1,000 mcg 191.379 100 In Sodium Chloride 0.9% 80 ml @ Per Protocol IV . Q0M [facility] Rx#:[id number] propofoL 1,000 mg In 319.831 265.635 Empty Bag 1 bag @ Titrate IV .Q0M [facility] Rx#: [id number] Tube Feeding 180 180 60 Other 90 90 Output: Urine 780 1530 1625 Hemodialysis 2500 Other: Voiding Method Indwelling Catheter Indwelling Catheter ABP, PAP, CO, CI - Last Documented Arterial Blood Pressure 126/49 - Exam - Constitutional General appearance: sedated on full ventilator support - Neck Neck: normal ROM Carotids: bilateral: upstroke normal Thyroid: bilateral: normal size - Respiratory Respiratory: bilateral: diminished, rales - Cardiovascular Rhythm: regular Heart sounds: normal: S1, S2 - Gastrointestinal General gastrointestinal: soft - Integumentary Integumentary: normal turgor - Neurologic Neurologic: CNII-XII intact - Musculoskeletal Musculoskeletal: gait normal, generalized weakness, strength equal bilaterally - Psychiatric Psychiatric: sedated on full ventilator support - Labs CBC & Chem 7: 12/14/20 03:50 12/14/20 03:50 Labs: Abnormal Lab Results - Last 24 Hours (Table) 12/13/20 12/13/20 12/13/20 Range/Units 11:31 16:24 20:24 WBC (3.8-10.6) k/uL Hgb (13.0-17.5) gm/dL Hct (39.0-53.0) % Neutrophils # (1.3-7.7) k/uL Lymphocytes # (1.0-4.8) k/uL ABG pCO2 (35-45) mmHg ABG HCO3 (21-25) mmol/L ABG Total CO2 (19-24) mmol/L Sodium (137-145) mmol/L BUN (9-20) mg/dL Creatinine (0.66-1.25) mg/dL Glucose (74-99) mg/dL POC Glucose (mg/dL) 147 H 133 H 146 H (75-99) mg/dL Calcium (8.4-10.2) mg/dL Total Protein (6.3-8.2) g/dL Albumin (3.5-5.0) g/dL 12/14/20 12/14/20 12/14/20 Range/Units 00:15 03:50 03:50 WBC 11.7 H (3.8-10.6) k/uL Hgb 12.6 L (13.0-17.5) gm/dL Hct 38.7 L (39.0-53.0) % Neutrophils # 10.6 H (1.3-7.7) k/uL Lymphocytes # 0.3 L (1.0-4.8) k/uL ABG pCO2 (35-45) mmHg ABG HCO3 (21-25) mmol/L ABG Total CO2 (19-24) mmol/L Sodium 135 L (137-145) mmol/L BUN 79 H (9-20) mg/dL Creatinine 2.57 H (0.66-1.25) mg/dL Glucose 144 H (74-99) mg/dL POC Glucose (mg/dL) 155 H (75-99) mg/dL Calcium 7.3 L (8.4-10.2) mg/dL Total Protein 4.7 L (6.3-8.2) g/dL Albumin 2.4 L (3.5-5.0) g/dL 12/14/20 12/14/20 Range/Units 05:57 08:53 WBC (3.8-10.6) k/uL Hgb (13.0-17.5) gm/dL Hct (39.0-53.0) % Neutrophils # (1.3-7.7) k/uL Lymphocytes # (1.0-4.8) k/uL ABG pCO2 47 H (35-45) mmHg ABG HCO3 26 H (21-25) mmol/L ABG Total CO2 27 H (19-24) mmol/L Sodium (137-145) mmol/L BUN (9-20) mg/dL Creatinine (0.66-1.25) mg/dL Glucose (74-99) mg/dL POC Glucose (mg/dL) 145 H (75-99) mg/dL Calcium (8.4-10.2) mg/dL Total Protein (6.3-8.2) g/dL Albumin (3.5-5.0) g/dL Assessment and Plan Assessment: acute kidney injury with fluid overload and anasarca left renal mass with history of renal cell clear carcinoma, status post partial elective nephrectomy in 2019 gram-negative pneumonia due to ESBL E. coli Severe sepsis and septic shock due to gram-negative pneumonia Acute on chronic hypoxic and hypercapnic respiratory failure Acute lung injury and ARDS Developing progressive right-sided pleural effusion Acute kidney injury hyperkalemia Metabolic and respiratory acidosis Uncontrolled diabetes Pulmonary fibrosis due to extensive recentCOVID-19 pneumonia Asbestosis lung pulmonary nodule Advanced diabetes mellitus with hyperglycemia Chronic kidney disease stage III Plan: patient status post second course of hemodialysis urine output has improved now will titrate oxygen down to 40% subsequently will bring down the PEEP first 28 and 5 in next 48 hours Urology evaluation Taper and DC Nimbex drip monitor off of Nimbex ventilator adjustment status post central line Lovenox 30 mg subcu every 12 tube feed as per protocol Labs chest x-ray and ABG in the morning Plan to sedate and medically paralyzed with propofol, fentanyl, Nimbex, titrated propofol down to 30-40 mics in next 24 hours Vasopressors as needed Fluid boluses as needed Follow-up on [place] cultures including sputum urine and blood continue antibiotics IV steroids Continue supplemental oxygen Deep breathing exercise incentive spirometry evaluation of pulmonary nodule once stabilized Time with Patient: Greater than 30
--- NOTE | 2020-12-14 10:24 | P.PN ---
Subjective Progress Note Date: 12/14/20 Principal diagnosis: This is a 70 year male with acute kidney injury who was started on dialysis. He had Covid pneumonia and was discharged and readmitted with a new onset of pneumonia or shortness of breath and had when dependent respiratory failure. He was dialyzed yesterday. Her only on Lasix drip he made 700 mL of urine over the last 3 hours. He is on 50% FiO2. Stable. Is known with diabetes, DVT, sleep apnea, peripheral neuropathy and has a kidney mass under observation. Objective - Vital Signs Vital signs: Vital Signs Temp 97.4 F L 12/14/20 04:00 Pulse 65 12/14/20 10:00 Resp 30 H 12/14/20 10:00 BP 152/69 12/14/20 10:00 Pulse Ox 91 L 12/14/20 10:00 Intake & Output 12/13/20 12/14/20 12/14/20 18:59 06:59 18:59 Intake Total 1020.530 982.635 140 Output Total 3280 1530 1625 Balance -2259.470 -547.365 -1485 Weight 115.666 kg Intake: IV 44 256 80 Sodium Chloride 0.9% 1, 20 220 80 000 ml @ 20 mls/hr IV . Q24H [facility] Rx#:[id number] pressure bag 24 36 Intake, IV Titration 706.530 456.635 Amount Cisatracurium 200 mg In 28.107 Sodium Chloride 0.9% 180 ml @ 1 MCG/KG/MIN 6.94 mls/hr IV .Q24H [facility] Rx#: [id number] Furosemide 100 mg In 94.5 91 Sodium Chloride 0.9% 90 ml @ 10 MG/HR 10 mls/hr IV .Q10H [facility] Rx#: [id number] Norepinephrine 4 mg In 72.713 Sodium Chloride 0.9% 250 ml @ 0.05 MCG/KG/MIN 22. 034 mls/hr IV .[id number] [facility] Rx#:[id number] fentaNYL (PF). 1,000 mcg 191.379 100 In Sodium Chloride 0.9% 80 ml @ Per Protocol IV . Q0M [facility] Rx#:[id number] propofoL 1,000 mg In 319.831 265.635 Empty Bag 1 bag @ Titrate IV .Q0M [facility] Rx#: [id number] Tube Feeding 180 180 60 Other 90 90 Output: Urine 780 1530 1625 Hemodialysis 2500 Other: Voiding Method Indwelling Catheter Indwelling Catheter ABP, PAP, CO, CI - Last Documented Arterial Blood Pressure 126/49 On examination he is sedated on the vent 50% FiO2 HEENT exam no JVP noted Lungs are clear to auscultation fair air entry bilaterally Heart sounds unremarkable for any murmur rub gallop Abdomen soft nondistended Extremities exam was mild edema - Labs CBC & Chem 7: 12/14/20 03:50 12/14/20 03:50 Labs: Abnormal Lab Results - Last 24 Hours (Table) 12/13/20 12/13/20 12/13/20 Range/Units 11:31 16:24 20:24 WBC (3.8-10.6) k/uL Hgb (13.0-17.5) gm/dL Hct (39.0-53.0) % Neutrophils # (1.3-7.7) k/uL Lymphocytes # (1.0-4.8) k/uL ABG pCO2 (35-45) mmHg ABG HCO3 (21-25) mmol/L ABG Total CO2 (19-24) mmol/L Sodium (137-145) mmol/L BUN (9-20) mg/dL Creatinine (0.66-1.25) mg/dL Glucose (74-99) mg/dL POC Glucose (mg/dL) 147 H 133 H 146 H (75-99) mg/dL Calcium (8.4-10.2) mg/dL Total Protein (6.3-8.2) g/dL Albumin (3.5-5.0) g/dL 12/14/20 12/14/20 12/14/20 Range/Units 00:15 03:50 03:50 WBC 11.7 H (3.8-10.6) k/uL Hgb 12.6 L (13.0-17.5) gm/dL Hct 38.7 L (39.0-53.0) % Neutrophils # 10.6 H (1.3-7.7) k/uL Lymphocytes # 0.3 L (1.0-4.8) k/uL ABG pCO2 (35-45) mmHg ABG HCO3 (21-25) mmol/L ABG Total CO2 (19-24) mmol/L Sodium 135 L (137-145) mmol/L BUN 79 H (9-20) mg/dL Creatinine 2.57 H (0.66-1.25) mg/dL Glucose 144 H (74-99) mg/dL POC Glucose (mg/dL) 155 H (75-99) mg/dL Calcium 7.3 L (8.4-10.2) mg/dL Total Protein 4.7 L (6.3-8.2) g/dL Albumin 2.4 L (3.5-5.0) g/dL 12/14/20 12/14/20 Range/Units 05:57 08:53 WBC (3.8-10.6) k/uL Hgb (13.0-17.5) gm/dL Hct (39.0-53.0) % Neutrophils # (1.3-7.7) k/uL Lymphocytes # (1.0-4.8) k/uL ABG pCO2 47 H (35-45) mmHg ABG HCO3 26 H (21-25) mmol/L ABG Total CO2 27 H (19-24) mmol/L Sodium (137-145) mmol/L BUN (9-20) mg/dL Creatinine (0.66-1.25) mg/dL Glucose (74-99) mg/dL POC Glucose (mg/dL) 145 H (75-99) mg/dL Calcium (8.4-10.2) mg/dL Total Protein (6.3-8.2) g/dL Albumin (3.5-5.0) g/dL Assessment and Plan Assessment: Impression 1. Acute kidney injury from pneumonia and sepsis, on dialysis last dialysis was yesterday 2. Fair amount of urine output over the last few hours on IV Lasix drip. He made 700 mL over the last 3 hours. 3. Pneumonia and vent dependent respiratory failure on 50% FiO2 4. Left Kidney mass being followed up in urology Recommendation 1. Hold on dialysis and see how he does without dialysis or the next 24-48 hours
[2020-12-14 11:46] LABS: Glucose,Whole Blood 119 mg/dL (75-99)
[2020-12-14] MEDS: GABAPENTIN 300 MG CAP PO SCH (11:57)
[2020-12-14 15:34] LABS: Glucose,Whole Blood 122 mg/dL (75-99)
--- NOTE | 2020-12-14 16:35 | P.PN ---
Subjective Patient is being treated for secondary bacterial pneumonia and he was recently discharged after he was treated for Covid 19. 8. Patient is a pleasant 70-year-old male came in with the complaints of shortness of breath on 4 L of oxygen and oxygen saturation is going down to 78%. Patient is comparing of cough with yellowish sputum production. Patient was having high-grade fevers patient denied any dysuria patient denied nausea vomiting. Patient was discharged from the hospital after 3 week treatment for Covid 19 patient was discharged earlier this month. Patient came back positive again on of this month patient did receive both Covid vaccines. Patient's creatinine at the time of discharge is around 1.3 presently around 1.3. Patient is bit hyponatremic. Patient at a chest x-ray which is showing bilateral infiltrates consistent with Covid 19, although infiltrates are mildly better compared to the previous x-rays. 12/05/2020 Patient continues to have fevers is pretty status appears to have worsened a bit and patient is an 5 L of oxygen is still bit hypoxic and patient is in mild respiratory distress. Patient is being treated for secondary bacterial pneumonia. Repeat Covid 19 PCR is negative now. Patient blood sugars are well controlled. Dec 09 2020 Patient respiratory status worsened patient went into septic shock was subsequently transferred to intensive care unit with sputum cultures are showing ESBL E. coli patient was started on meropenem. Patient's ABGs consistent with the acidosis and both hypoxic as well as hypercapnic respiratory failure patient is presently on ventilator support. Assist control ventilation with PEEP of 10 have out of 90% set up respiratory rate of around 20 and tidal volume of 550. Patient is also numb nor- epinephrine. Patient is in septic shock. has very minimal urine output patient appears to have acute to the necrosis and patient has elevated creatinine of 2.15. Patient's potassium is elevated to 6.4 received Late has come down to 5.8. Patient is on the propofol sedation patient is also receiving systemic steroids. Atenolol and the Norvasc will be discontinued 12/10/2020 Patient remains on ventilator support with set up respiratory to for 30, tidal volume of 550, PEEP of 10 and FiO2 of 70% patient was on FiO2 of 100% yesterday. Patient remains on the propofol and Nimbex. Patient is off the levo fed. Remains on meropenem since the December 08. 12/11/2020 Patient remains acidotic with hypercapnia, respiratory is doses. Patient remai ns on the same and settings as yesterday. Patient is hypokalemic nephrology is managing this. Patient creatinine remained stable at 2.2. Patient's blood sugars are high will add short-acting insulin every 6 hours patient is receiving OG tube feedings, Nepro. Patient is back on norepinephrine. His leukocytosis although can you to improve. 12/12/2020 Visit acidosis improved patient remains in the same symptoms when settings as yesterday. Patient was started on hemodialysis because of persistent hyperkalemia volume overload poor urine output. Patient chest x-ray showing pulmonary edema patient has extensive anasarca. Patient is presently not on norepinephrine. Patient is on IV Lasix drip. 12/13/2020 and patient appears to have improvement in overall clinical condition patient had hemodialysis with removal of around 2.5 L today patient started urinating again. Patient has good urine output today. Patient still has peripheral edema patient FiO2 requirements have come down and patient is presently on 60% FiO2 did patient acidosis improved and pH is close to normal Review of systems: Unable to obtain due to his clinical condition. Potassium is 5.5. 12/14/2020 Patient remains intubated patient is presently on 45% FiO2. Patient is urinating well around 200 mL per hour patient volume status improved respiratory status improved 18 is improving patient hemodialysis is on hold is on IV Lasix drip. Patient is presently not on pressor support. Chest x-ray still miriam wing diffuse bilateral infiltrates without any significant change white blood cell count improved to 11,000. Patient had partial nephrectomy in the past for carcinoma. Urology is following the patient because of new mass in the kidney All inpatient medications were reviewed and appropriate changes in these medications as dictated in the interval history and assessment and plan. Objective - Vital Signs Vital signs: Vital Signs Temp 98.0 F 12/14/20 16:00 Pulse 56 L 12/14/20 16:00 Resp 30 H 12/14/20 16:00 BP 119/57 12/14/20 16:00 Pulse Ox 90 L 12/14/20 16:00 Intake & Output 12/13/20 12/14/20 12/14/20 18:59 06:59 18:59 Intake Total 1020.530 982.635 550.66 Output Total 3280 1530 3070 Balance -2259.470 -547.365 -2519.34 Weight 115.666 kg Intake: IV 44 256 200 Sodium Chloride 0.9% 1, 20 220 200 000 ml @ 20 mls/hr IV . Q24H [facility] Rx#:[id number] pressure bag 24 36 Intake, IV Titration 706.530 456.635 290.66 Amount Cisatracurium 200 mg In 28.107 Sodium Chloride 0.9% 180 ml @ 1 MCG/KG/MIN 6.94 mls/hr IV .Q24H [facility] Rx#: [id number] Furosemide 100 mg In 94.5 91 93.5 Sodium Chloride 0.9% 90 ml @ 10 MG/HR 10 mls/hr IV .Q10H [facility] Rx#: [id number] Norepinephrine 4 mg In 72.713 Sodium Chloride 0.9% 250 ml @ 0.05 MCG/KG/MIN 22. 034 mls/hr IV .[id number] [facility] Rx#:[id number] fentaNYL (PF). 1,000 mcg 191.379 100 100 In Sodium Chloride 0.9% 80 ml @ Per Protocol IV . Q0M [facility] Rx#:[id number] propofoL 1,000 mg In 319.831 265.635 97.16 Empty Bag 1 bag @ Titrate IV .Q0M [facility] Rx#: [id number] Tube Feeding 180 180 60 Other 90 90 Output: Urine 780 1530 3070 Hemodialysis 2500 Other: Voiding Method Indwelling Catheter Indwelling Catheter Indwelling Catheter ABP, PAP, CO, CI - Last Documented Arterial Blood Pressure 121/48 - Exam PHYSICAL EXAMINATION: GENERAL: Patient is intubated sedated HEENT: Pupils are round and equally reacting to light. EOMI. No scleral icterus. No conjunctival pallor. Normocephalic, atraumatic. No pharyngeal erythema. No thyromegaly. CARDIOVASCULAR: S1 and S2 present. No murmurs, rubs, or gallops. PULMONARY: Chest is clear to auscultation, no wheezing or crackles. ABDOMEN: Soft, nontender, nondistended, normoactive bowel sounds. No palpable organomegaly. MUSCULOSKELETAL: No joint swelling or deformity. EXTREMITIES: No cyanosis, clubbing, or pedal edema. NEUROLOGICAL: Sedated. SKIN: No rashes. - Labs CBC & Chem 7: 12/14/20 03:50 12/14/20 03:50 Labs: Abnormal Lab Results - Last 24 Hours (Table) 12/13/20 12/14/20 12/14/20 Range/Units 20:24 00:15 03:50 WBC 11.7 H (3.8-10.6) k/uL Hgb 12.6 L (13.0-17.5) gm/dL Hct 38.7 L (39.0-53.0) % Neutrophils # 10.6 H (1.3-7.7) k/uL Lymphocytes # 0.3 L (1.0-4.8) k/uL ABG pCO2 (35-45) mmHg ABG HCO3 (21-25) mmol/L ABG Total CO2 (19-24) mmol/L Sodium (137-145) mmol/L BUN (9-20) mg/dL Creatinine (0.66-1.25) mg/dL Glucose (74-99) mg/dL POC Glucose (mg/dL) 146 H 155 H (75-99) mg/dL Calcium (8.4-10.2) mg/dL Total Protein (6.3-8.2) g/dL Albumin (3.5-5.0) g/dL 12/14/20 12/14/20 12/14/20 Range/Units 03:50 05:57 08:53 WBC (3.8-10.6) k/uL Hgb (13.0-17.5) gm/dL Hct (39.0-53.0) % Neutrophils # (1.3-7.7) k/uL Lymphocytes # (1.0-4.8) k/uL ABG pCO2 47 H (35-45) mmHg ABG HCO3 26 H (21-25) mmol/L ABG Total CO2 27 H (19-24) mmol/L Sodium 135 L (137-145) mmol/L BUN 79 H (9-20) mg/dL Creatinine 2.57 H (0.66-1.25) mg/dL Glucose 144 H (74-99) mg/dL POC Glucose (mg/dL) 145 H (75-99) mg/dL Calcium 7.3 L (8.4-10.2) mg/dL Total Protein 4.7 L (6.3-8.2) g/dL Albumin 2.4 L (3.5-5.0) g/dL 12/14/20 12/14/20 Range/Units 11:44 15:30 WBC (3.8-10.6) k/uL Hgb (13.0-17.5) gm/dL Hct (39.0-53.0) % Neutrophils # (1.3-7.7) k/uL Lymphocytes # (1.0-4.8) k/uL ABG pCO2 (35-45) mmHg ABG HCO3 (21-25) mmol/L ABG Total CO2 (19-24) mmol/L Sodium (137-145) mmol/L BUN (9-20) mg/dL Creatinine (0.66-1.25) mg/dL Glucose (74-99) mg/dL POC Glucose (mg/dL) 119 H 122 H (75-99) mg/dL Calcium (8.4-10.2) mg/dL Total Protein (6.3-8.2) g/dL Albumin (3.5-5.0) g/dL Assessment and Plan Plan: 1 septic shock: Patient probably has a secondary bacterial pneumonia, patient's (a positive for E. coli which is ESBL E. coli patient is presently on meropenem. Shock improved patient is off pressor support as mentioned above patient is on ventilatory support. Patient most probably has a post Covid bacterial pneumonia. COVID-19 PCR is negative on this hospitalization, pulmonary and infectious disease are following the patient. -Acute hypoxic respiratory failure secondary to septic shock patient is presently not on norepinephrine -Hyperkalemia secondary to acute renal failure. Improved now hemodialysis is being held -Acute renal failure secondary to acute tubular necrosis from septic shock, started on hemodialysis, urine output is improving -Volume overload secondary to renal failure , patient is urinating now hemodialysis is being held patient volume status did improve compared to yesterday -elevated d-dimer secondary to pneumonia . -Acute on chronic hypoxic respiratory failure secondary to pneumonia. -History of asbestosis -Chronic kidney disease stage II to 3. Probable diabetic nephropathy --History of DVT in the past -Type 2 diabetes mellitus: Well controlled continue with present regimen of long-acting insulin and short-acting insulin every 6 hours. -Hypertension -Sleep apnea -Diabetic peripheral neuropathy -DVT prophylaxis with subcutaneous heparin
--- NOTE | 2020-12-14 18:50 | PN ---
PROGRESS NOTE DATE OF SERVICE: 12/14/2020 REASON FOR FOLLOWUP: Pneumonia. INTERVAL HISTORY: The patient is currently afebrile. The patient is hemodynamically stable, not on pressor support. No dialysis was done today. FiO2 is currently stable at 45%. No significant purulent secretions through the ET or any diarrhea reported by nursing staff. PHYSICAL EXAMINATION: Blood pressure 129/60 with a pulse of 60, temperature 98. He is 90% on 25% FIO2. General description is an elderly male intubated on the vent. Respiratory system: Unlabored breathing, decreased breath sounds at the base. No wheeze. Heart S1, S2. Regular rate and rhythm. Abdomen soft, no tenderness. LABS: Hemoglobin is 12.7, white count 11.7, BUN of 79, creatinine is 2.57. DIAGNOSTIC IMPRESSION AND PLAN: Patient with acute respiratory failure which is multifactorial with possible component of pneumonia. Sputum has been ESBL. Patient covered with meropenem to continue along with respiratory support and monitor clinical course closely. Continue supportive care. MMODL / IJN: [id number] /
[2020-12-14 19:13] LABS: Glucose,Whole Blood 137 mg/dL (75-99)
[2020-12-14] MEDS: INSULIN DETEMIR (LEVEMIR) 100 UNIT/ML SYR SQ SCH (19:13)
[2020-12-14 23:23] LABS: Glucose,Whole Blood 125 mg/dL (75-99)
[2020-12-15] MEDS: fentaNYL (PF). 1,000 MCG in SODIUM CHLORIDE 0.9% 80 ML IV SCH ×2 (02:54→11:13)
[2020-12-15 04:33] LABS: Albumin 2.5 g/dL (3.5-5.0); Calcium 7.8 mg/dL (8.4-10.2); Potassium 4.8 mmol/L (3.5-5.1); Total Bilirubin 0.4 mg/dL (0.2-1.3); Total Protein 4.7 g/dL (6.3-8.2)
[2020-12-15 04:46] LABS: Basophils # (A) 0.1 k/uL (0-0.2); Basophils % (A) 1 %; Eosinophils % (A) 0 %; HGB 12.9 gm/dL (13.0-17.5); Lymphocytes # (A) 0.4 k/uL (1.0-4.8); Lymphocytes % (A) 4 %; MCV 87.8 fL (80.0-100.0); Mean Platelet Volume 7.7; Monocytes # (A) 0.7 k/uL (0-1.0); Monocytes % (A) 6 %; Neutrophils # (A) 10.8 k/uL (1.3-7.7); Neutrophils % (A) 88 %; Platelet Count 183 k/uL (150-450); RBC 4.44 m/uL (4.30-5.90); WBC 12.2 k/uL (3.8-10.6)
[2020-12-15] MEDS: INSULIN ASPART (NovoLOG) 100 UNIT/ML VIAL SQ SCH ×8 (05:06→20:28)
[2020-12-15] MEDS: CISATRACURIUM 200 MG in SODIUM CHLORIDE 0.9% 180 ML IV SCH (05:06)
[2020-12-15] MEDS: NOREPINEPHRINE 4 MG in SODIUM CHLORIDE 0.9% 250 ML IV SCH ×2 (05:06→14:50)
[2020-12-15] MEDS: FUROSEMIDE 100 MG in SODIUM CHLORIDE 0.9% 90 ML IV SCH ×2 (05:25→14:38)
[2020-12-15 05:45] LABS: ABG Base Excess 1.4 mmol/L; ABG HCO3 27 mmol/L (21-25); ABG Oxygen Saturation 96.7 % (94-97); ABG PCO2 46 mmHg (35-45); ABG PH 7.37 (7.35-7.45); ABG PO2 96 mmHg (83-108); ABG TCO2 28 mmol/L (19-24)
[2020-12-15 06:17] LABS: Allen Test Performed? no
--- NOTE | 2020-12-15 06:35 | XR ---
EXAMINATION TYPE: XR chest 1V portable DATE OF EXAM: 12/15/2020 COMPARISON: 12/14/2020 HISTORY: Shortness of breath TECHNIQUE: Single frontal view of the chest is obtained. FINDINGS: Diffuse interstitial opacity and partial scattered small air space opacities unchanged sin ce the prior study. The heart size is prominent. There are probable small pleural effusions. There is no pneumothorax. The ET tube, central venous catheter NG tube are all unchanged in position. IMPRESSION: Markedly abnormal chest as described above which is unchanged since the prior study.
--- NOTE | 2020-12-15 08:06 | P.PN ---
Subjective Progress Note Date: 12/15/20 Principal diagnosis: This is a 70 year male with acute kidney injury who was started on dialysis. He had Covid pneumonia and was discharged and readmitted with a new onset of pneumonia or shortness of breath and had Vent dependent respiratory failure. He was dialyzed day before yesterday. on Lasix drip he made 6000 mL mL of urine over the last 24 hours He is on 55% FiO2. Stable. Is known with diabetes, DVT, sleep apnea, peripheral neuropathy and has a kidney mass under observation. Objective - Vital Signs Vital signs: Vital Signs Temp 98 F 12/15/20 04:00 Pulse 57 L 12/15/20 07:00 Resp 30 H 12/15/20 07:00 BP 149/61 12/15/20 07:00 Pulse Ox 94 L 12/15/20 07:00 Intake & Output 12/14/20 12/15/20 12/15/20 18:59 06:59 18:59 Intake Total 785.509 944.369 41 Output Total 3570 2430 335 Balance -2784.491 -1485.631 -294 Intake: IV 240 312 26 Sodium Chloride 0.9% 1, 240 240 20 000 ml @ 20 mls/hr IV . Q24H [facility] Rx#:[id number] pressure bag 72 6 Intake, IV Titration 485.509 377.369 Amount Furosemide 100 mg In 93.5 184.833 Sodium Chloride 0.9% 90 ml @ 10 MG/HR 10 mls/hr IV .Q10H [facility] Rx#: [id number] fentaNYL (PF). 1,000 mcg 194.849 92.536 In Sodium Chloride 0.9% 80 ml @ Per Protocol IV . Q0M [facility] Rx#:[id number] propofoL 1,000 mg In 197.16 100 Empty Bag 1 bag @ Titrate IV .Q0M [facility] Rx#: [id number] Tube Feeding 60 165 15 Other 90 Output: Urine 3570 2430 335 Other: Voiding Method Indwelling Catheter Indwelling Catheter ABP, PAP, CO, CI - Last Documented Arterial Blood Pressure 130/45 On examination he is on the ventilator and sedated Normal sinus rhythm on the monitor HEENT exam unremarkable Lungs are clear to auscultation fair air entry bilaterally Heart sounds unremarkable for any murmur rub gallop. Abdomen soft nontender Extremity exam was mild edema - Labs CBC & Chem 7: 12/15/20 04:07 12/15/20 04:07 Labs: Abnormal Lab Results - Last 24 Hours (Table) 12/14/20 12/14/20 12/14/20 Range/Units 08:53 11:44 15:30 WBC (3.8-10.6) k/uL Hgb (13.0-17.5) gm/dL Neutrophils # (1.3-7.7) k/uL Lymphocytes # (1.0-4.8) k/uL ABG pCO2 (35-45) mmHg ABG HCO3 (21-25) mmol/L ABG Total CO2 (19-24) mmol/L Sodium (137-145) mmol/L BUN (9-20) mg/dL Creatinine (0.66-1.25) mg/dL Glucose (74-99) mg/dL POC Glucose (mg/dL) 145 H 119 H 122 H (75-99) mg/dL Calcium (8.4-10.2) mg/dL Total Protein (6.3-8.2) g/dL Albumin (3.5-5.0) g/dL 12/14/20 12/14/20 12/15/20 Range/Units 19:11 23:21 04:07 WBC 12.2 H (3.8-10.6) k/uL Hgb 12.9 L (13.0-17.5) gm/dL Neutrophils # 10.8 H (1.3-7.7) k/uL Lymphocytes # 0.4 L (1.0-4.8) k/uL ABG pCO2 (35-45) mmHg ABG HCO3 (21-25) mmol/L ABG Total CO2 (19-24) mmol/L Sodium (137-145) mmol/L BUN (9-20) mg/dL Creatinine (0.66-1.25) mg/dL Glucose (74-99) mg/dL POC Glucose (mg/dL) 137 H 125 H (75-99) mg/dL Calcium (8.4-10.2) mg/dL Total Protein (6.3-8.2) g/dL Albumin (3.5-5.0) g/dL 12/15/20 12/15/20 Range/Units 04:07 05:38 WBC (3.8-10.6) k/uL Hgb (13.0-17.5) gm/dL Neutrophils # (1.3-7.7) k/uL Lymphocytes # (1.0-4.8) k/uL ABG pCO2 46 H (35-45) mmHg ABG HCO3 27 H (21-25) mmol/L ABG Total CO2 28 H (19-24) mmol/L Sodium 136 L (137-145) mmol/L BUN 101 H* (9-20) mg/dL Creatinine 2.68 H (0.66-1.25) mg/dL Glucose 144 H (74-99) mg/dL POC Glucose (mg/dL) (75-99) mg/dL Calcium 7.8 L (8.4-10.2) mg/dL Total Protein 4.7 L (6.3-8.2) g/dL Albumin 2.5 L (3.5-5.0) g/dL Assessment and Plan Assessment: Impression 1. Acute kidney injury from pneumonia and sepsis, on dialysis last dialysis was day before yesterday he did has started to make large amounts of urine on Lasix drip 6 L for the last 24 hours. Creatinine is stable over the last 3 days currently 2.68 2. Pneumonia and vent dependent respiratory failure on 55% FiO2 4. Left Kidney mass being followed up in urology. 5. Blood gases show mild degree of respiratory acidosis, pH is 7.37 and pCO2 is 46 and bicarb is 26 Recommendation 1. Hold dialysis 2. Continue Lasix drip, reduce it to 5 mg/h because of the excessive amount of urine output. 3. Watch for hypernatremia from excessive diuresis
[2020-12-15] MEDS: ALBUTEROL HFA INHALER INHALATION PRN ×4 (08:24→19:03)
[2020-12-15] MEDS: SYMBICORT 160-4.5 MCG INHALER INHALATION SCH ×2 (08:24→19:03)
[2020-12-15] MEDS: ZINC SULFATE 220 MG CAP PO SCH (08:26)
[2020-12-15] MEDS: CHOLECALCIFEROL 25 MCG (1000 IU) TABLET PO SCH (08:26)
[2020-12-15] MEDS: CHLORHEXIDINE GLUCONATE 15 ML CUP MUCOUS MEM SCH ×2 (08:27→20:32)
[2020-12-15] MEDS: methylPREDNISolone SOD SUCCI 40 MG/ML 1 ML VIAL IV SCH ×2 (08:27→20:32)
[2020-12-15] MEDS: MEROPENEM 1 GM in SODIUM CHLORIDE 0.9% 100 ML IVPB SCH ×2 (08:27→20:32)
[2020-12-15] MEDS: ENOXAPARIN 30 MG/0.3 ML SYRINGE SQ SCH ×2 (08:27→20:32)
[2020-12-15] MEDS: SENNOSIDES 8.6 MG TAB PO SCH ×2 (08:27→20:32)
[2020-12-15] MEDS: PANTOPRAZOLE 40 MG/10 ML VIAL IVP SCH (08:27)
[2020-12-15] MEDS: GABAPENTIN 300 MG CAP PO SCH (08:33)
[2020-12-15 08:42] LABS: Glucose,Whole Blood 136 mg/dL (75-99)
--- NOTE | 2020-12-15 09:40 | P.PN ---
Subjective Patient is being treated for secondary bacterial pneumonia and he was recently discharged after he was treated for Covid 19. 8. Patient is a pleasant 70-year-old male came in with the complaints of shortness of breath on 4 L of oxygen and oxygen saturation is going down to 78%. Patient is comparing of cough with yellowish sputum production. Patient was having high-grade fevers patient denied any dysuria patient denied nausea vomiting. Patient was discharged from the hospital after 3 week treatment for Covid 19 patient was discharged earlier this month. Patient came back positive again on of this month patient did receive both Covid vaccines. Patient's creatinine at the time of discharge is around 1.3 presently around 1.3. Patient is bit hyponatremic. Patient at a chest x-ray which is showing bilateral infiltrates consistent with Covid 19, although infiltrates are mildly better compared to the previous x-rays. 12/05/2020 Patient continues to have fevers is pretty status appears to have worsened a bit and patient is an 5 L of oxygen is still bit hypoxic and patient is in mild respiratory distress. Patient is being treated for secondary bacterial pneumonia. Repeat Covid 19 PCR is negative now. Patient blood sugars are well controlled. Dec 09 2020 Patient respiratory status worsened patient went into septic shock was subsequently transferred to intensive care unit with sputum cultures are showing ESBL E. coli patient was started on meropenem. Patient's ABGs consistent with the acidosis and both hypoxic as well as hypercapnic respiratory failure patient is presently on ventilator support. Assist control ventilation with PEEP of 10 have out of 90% set up respiratory rate of around 20 and tidal volume of 550. Patient is also numb nor- epinephrine. Patient is in septic shock. has very minimal urine output patient appears to have acute to the necrosis and patient has elevated creatinine of 2.15. Patient's potassium is elevated to 6.4 received Late has come down to 5.8. Patient is on the propofol sedation patient is also receiving systemic steroids. Atenolol and the Norvasc will be discontinued 12/10/2020 Patient remains on ventilator support with set up respiratory to for 30, tidal volume of 550, PEEP of 10 and FiO2 of 70% patient was on FiO2 of 100% yesterday. Patient remains on the propofol and Nimbex. Patient is off the levo fed. Remains on meropenem since the December 08. 12/11/2020 Patient remains acidotic with hypercapnia, respiratory is doses. Patient remai ns on the same and settings as yesterday. Patient is hypokalemic nephrology is managing this. Patient creatinine remained stable at 2.2. Patient's blood sugars are high will add short-acting insulin every 6 hours patient is receiving OG tube feedings, Nepro. Patient is back on norepinephrine. His leukocytosis although can you to improve. 12/12/2020 Visit acidosis improved patient remains in the same symptoms when settings as yesterday. Patient was started on hemodialysis because of persistent hyperkalemia volume overload poor urine output. Patient chest x-ray showing pulmonary edema patient has extensive anasarca. Patient is presently not on norepinephrine. Patient is on IV Lasix drip. 12/13/2020 and patient appears to have improvement in overall clinical condition patient had hemodialysis with removal of around 2.5 L today patient started urinating again. Patient has good urine output today. Patient still has peripheral edema patient FiO2 requirements have come down and patient is presently on 60% FiO2 did patient acidosis improved and pH is close to normal Review of systems: Unable to obtain due to his clinical condition. Potassium is 5.5. 12/14/2020 Patient remains intubated patient is presently on 45% FiO2. Patient is urinating well around 200 mL per hour patient volume status improved respiratory status improved 18 is improving patient hemodialysis is on hold is on IV Lasix drip. Patient is presently not on pressor support. Chest x-ray still miriam wing diffuse bilateral infiltrates without any significant change white blood cell count improved to 11,000. Patient had partial nephrectomy in the past for carcinoma. Urology is following the patient because of new mass in the kidney 12/15/2020 Patient is presently on FiO2 of 50% which is up from yesterday his overall anasarca is better lungs diminished on exam. Patient is both on propofol and fentanyl for sedation remains on ventilator support has good urine output continue to hold hemodialysis. All inpatient medications were reviewed and appropriate changes in these medications as dictated in the interval history and assessment and plan. Objective - Vital Signs Vital signs: Vital Signs Temp 98.7 F 12/15/20 08:00 Pulse 64 12/15/20 09:00 Resp 25 H 12/15/20 09:00 BP 139/58 12/15/20 09:00 Pulse Ox 95 12/15/20 09:00 Intake & Output 12/14/20 12/15/20 12/15/20 18:59 06:59 18:59 Intake Total 875.509 944.369 76 Output Total 3570 2430 635 Balance -2694.491 -1485.631 -559 Intake: IV 240 312 46 Sodium Chloride 0.9% 1, 240 240 40 000 ml @ 20 mls/hr IV . Q24H [facility] Rx#:[id number] pressure bag 72 6 Intake, IV Titration 485.509 377.369 Amount Furosemide 100 mg In 93.5 184.833 Sodium Chloride 0.9% 90 ml @ 5 MG/HR 5 mls/hr IV .Q20H [facility] Rx#:[id number] fentaNYL (PF). 1,000 mcg 194.849 92.536 In Sodium Chloride 0.9% 80 ml @ Per Protocol IV . Q0M [facility] Rx#:[id number] propofoL 1,000 mg In 197.16 100 Empty Bag 1 bag @ Titrate IV .Q0M [facility] Rx#: [id number] Tube Feeding 150 165 30 Other 90 Output: Urine 3570 2430 635 Other: Voiding Method Indwelling Catheter Indwelling Catheter ABP, PAP, CO, CI - Last Documented Arterial Blood Pressure 154/49 - Exam PHYSICAL EXAMINATION: GENERAL: Patient is intubated sedated HEENT: Pupils are round and equally reacting to light. EOMI. No scleral icterus. No conjunctival pallor. Normocephalic, atraumatic. No pharyngeal erythema. No thyromegaly. CARDIOVASCULAR: S1 and S2 present. No murmurs, rubs, or gallops. PULMONARY: Sounds and diminished air entry into bilateral lung tavarez ABDOMEN: Soft, nontender, nondistended, normoactive bowel sounds. No palpable organomegaly. MUSCULOSKELETAL: No joint swelling or deformity. EXTREMITIES: No cyanosis, clubbing, or pedal edema. NEUROLOGICAL: Sedated. SKIN: No rashes. - Labs CBC & Chem 7: 12/15/20 04:07 12/15/20 04:07 Labs: Abnormal Lab Results - Last 24 Hours (Table) 12/14/20 12/14/20 12/14/20 Range/Units 11:44 15:30 19:11 WBC (3.8-10.6) k/uL Hgb (13.0-17.5) gm/dL Neutrophils # (1.3-7.7) k/uL Lymphocytes # (1.0-4.8) k/uL ABG pCO2 (35-45) mmHg ABG HCO3 (21-25) mmol/L ABG Total CO2 (19-24) mmol/L Sodium (137-145) mmol/L BUN (9-20) mg/dL Creatinine (0.66-1.25) mg/dL Glucose (74-99) mg/dL POC Glucose (mg/dL) 119 H 122 H 137 H (75-99) mg/dL Calcium (8.4-10.2) mg/dL Total Protein (6.3-8.2) g/dL Albumin (3.5-5.0) g/dL 12/14/20 12/15/20 12/15/20 Range/Units 23:21 04:07 04:07 WBC 12.2 H (3.8-10.6) k/uL Hgb 12.9 L (13.0-17.5) gm/dL Neutrophils # 10.8 H (1.3-7.7) k/uL Lymphocytes # 0.4 L (1.0-4.8) k/uL ABG pCO2 (35-45) mmHg ABG HCO3 (21-25) mmol/L ABG Total CO2 (19-24) mmol/L Sodium 136 L (137-145) mmol/L BUN 101 H* (9-20) mg/dL Creatinine 2.68 H (0.66-1.25) mg/dL Glucose 144 H (74-99) mg/dL POC Glucose (mg/dL) 125 H (75-99) mg/dL Calcium 7.8 L (8.4-10.2) mg/dL Total Protein 4.7 L (6.3-8.2) g/dL Albumin 2.5 L (3.5-5.0) g/dL 12/15/20 12/15/20 Range/Units 05:38 08:40 WBC (3.8-10.6) k/uL Hgb (13.0-17.5) gm/dL Neutrophils # (1.3-7.7) k/uL Lymphocytes # (1.0-4.8) k/uL ABG pCO2 46 H (35-45) mmHg ABG HCO3 27 H (21-25) mmol/L ABG Total CO2 28 H (19-24) mmol/L Sodium (137-145) mmol/L BUN (9-20) mg/dL Creatinine (0.66-1.25) mg/dL Glucose (74-99) mg/dL POC Glucose (mg/dL) 136 H (75-99) mg/dL Calcium (8.4-10.2) mg/dL Total Protein (6.3-8.2) g/dL Albumin (3.5-5.0) g/dL Assessment and Plan Plan: 1 septic shock: Patient probably has a secondary bacterial pneumonia, patient's (a positive for E. coli which is ESBL E. coli patient is presently on meropenem. Shock improved patient is off pressor support as mentioned above patient is on ventilatory support. Patient most probably has a post Covid bacterial pneumonia. COVID-19 PCR is negative on this hospitalization, pulmonary and infectious disease are following the patient. -Acute hypoxic respiratory failure secondary to septic shock patient is presently not on norepinephrine -Hyperkalemia secondary to acute renal failure. Improved now hemodialysis is being held -Acute renal failure secondary to acute tubular necrosis from septic shock, started on hemodialysis, urine output is improving -Volume overload secondary to renal failure , patient is urinating now hemodialysis is being held patient volume status did improve compared to yesterday -elevated d-dimer secondary to pneumonia . -Acute on chronic hypoxic respiratory failure secondary to pneumonia. -History of asbestosis -Chronic kidney disease stage II to 3. Probable diabetic nephropathy --History of DVT in the past -Type 2 diabetes mellitus: Well controlled continue with present regimen of long-acting insulin and short-acting insulin every 6 hours. -Hypertension -Sleep apnea -Diabetic peripheral neuropathy -DVT prophylaxis with subcutaneous heparin
[2020-12-15 11:51] LABS: Glucose,Whole Blood 125 mg/dL (75-99)
[2020-12-15] MEDS: atenoloL 25 MG TAB PO SCH (14:49)
[2020-12-15 16:15] LABS: Glucose,Whole Blood 153 mg/dL (75-99)
--- NOTE | 2020-12-15 18:09 | PN ---
PROGRESS NOTE DATE OF SERVICE: 12/15/2020 REASON FOR FOLLOWUP: Pneumonia. INTERVAL HISTORY: The patient is afebrile. The patient is hemodynamically stable, not on pressor support. FiO2 is currently at 45%. No significant purulent secretions through the ET or diarrhea reported per the nursing staff and remains to be sedated on the vent. PHYSICAL EXAMINATION: Blood pressure 147/60 with a pulse of 55, temperature is 98.7. He is 92% on 45% FiO2. General description is an elderly male intubated on the vent. Respiratory system: Unlabored breathing, decreased breath sounds at the base. No wheeze. HEART: S1, S2. Regular rate and rhythm. ABDOMEN: Soft, no tenderness. EXTREMITIES: Some trace edema of feet. LABS: Hemoglobin is 12.8, white count 8.2, BUN of 101, creatinine is 2.68. DIAGNOSTIC IMPRESSION AND PLAN: Patient with acute respiratory failure which is multifactorial with possible component of pneumonia. Initial sputum was ESBL E coli. The patient is currently on meropenem to continue while monitoring clinical course closely. Prognosis remains to be guarded. Continue supportive care. MMODL / IJN: [id number] /
[2020-12-15 20:05] LABS: Glucose,Whole Blood 172 mg/dL (75-99)
[2020-12-15] MEDS: INSULIN DETEMIR (LEVEMIR) 100 UNIT/ML SYR SQ SCH (20:28)
[2020-12-15 23:44] LABS: Glucose,Whole Blood 172 mg/dL (75-99)
[2020-12-16] MEDS: NOREPINEPHRINE 4 MG in SODIUM CHLORIDE 0.9% 250 ML IV SCH ×3 (00:03→22:29)
[2020-12-16] MEDS: INSULIN ASPART (NovoLOG) 100 UNIT/ML VIAL SQ SCH ×10 (00:03→23:33)
[2020-12-16 03:54] LABS: Glucose,Whole Blood 169 mg/dL (75-99)
[2020-12-16 05:30] LABS: Basophils # (A) 0.2 k/uL (0-0.2); Basophils % (A) 1 %; Eosinophils # (A) 0.1 k/uL (0-0.7); Eosinophils % (A) 0 %; HCT 38.6 % (39.0-53.0); HGB 13.1 gm/dL (13.0-17.5); Lymphocytes # (A) 0.5 k/uL (1.0-4.8); Lymphocytes % (A) 3 %; MCH 29.8 pg (25.0-35.0); MCV 87.6 fL (80.0-100.0); Mean Platelet Volume 7.8; Monocytes # (A) 1.1 k/uL (0-1.0); Monocytes % (A) 7 %; Neutrophils # (A) 13.7 k/uL (1.3-7.7); Neutrophils % (A) 87 %; Platelet Count 222 k/uL (150-450); RBC 4.41 m/uL (4.30-5.90); RDW 14.8 % (11.5-15.5); WBC 15.8 k/uL (3.8-10.6)
[2020-12-16 05:40] LABS: ABG Base Excess 7.5 mmol/L; ABG HCO3 31 mmol/L (21-25); ABG PCO2 42 mmHg (35-45); ABG PH 7.48 (7.35-7.45); ABG PO2 62 mmHg (83-108); ABG TCO2 32 mmol/L (19-24); Allen Test Performed? Yes
[2020-12-16] MEDS: CISATRACURIUM 200 MG in SODIUM CHLORIDE 0.9% 180 ML IV SCH (05:48)
[2020-12-16 05:53] LABS: Albumin 2.8 g/dL (3.5-5.0); Calcium 8.4 mg/dL (8.4-10.2); Potassium 4.8 mmol/L (3.5-5.1); Total Bilirubin 0.6 mg/dL (0.2-1.3); Total Protein 5.2 g/dL (6.3-8.2)
[2020-12-16] MEDS: fentaNYL (PF). 1,000 MCG in SODIUM CHLORIDE 0.9% 80 ML IV SCH (06:33)
--- NOTE | 2020-12-16 07:03 | XR ---
EXAMINATION TYPE: XR chest 1V portable DATE OF EXAM: 12/16/2020 CLINICAL HISTORY: Difficulty breathing progress study. TECHNIQUE: Single AP portable semiupright view of the chest is obtained. COMPARISON: Chest x-ray from one day earlier and older studies FINDINGS: Stable endotracheal and orogastric tubes. Stable right internal jugular central venous cat heter. There is background chronic parenchymal changes with persistent bilateral multifocal and confluent op acities. The cardiac silhouette size remains enlarged with atherosclerotic thoracic aorta. Patient remains rotated to the right . IMPRESSION: Chronic parenchymal changes and cardiomegaly with persistent bilateral multifocal and co nfluent opacities consistent with covid-19 infection. No significant change from one day earlier.
[2020-12-16] MEDS: ALBUTEROL HFA INHALER INHALATION PRN ×4 (07:27→19:11)
[2020-12-16] MEDS: SYMBICORT 160-4.5 MCG INHALER INHALATION SCH ×2 (07:27→19:11)
[2020-12-16 07:48] LABS: Glucose,Whole Blood 151 mg/dL (75-99)
[2020-12-16] MEDS: CHOLECALCIFEROL 25 MCG (1000 IU) TABLET PO SCH (09:24)
[2020-12-16] MEDS: CHLORHEXIDINE GLUCONATE 15 ML CUP MUCOUS MEM SCH ×2 (09:24→21:14)
[2020-12-16] MEDS: ZINC SULFATE 220 MG CAP PO SCH (09:25)
[2020-12-16] MEDS: SENNOSIDES 8.6 MG TAB PO SCH ×2 (09:25→21:14)
[2020-12-16] MEDS: GABAPENTIN 300 MG CAP PO SCH (09:25)
[2020-12-16] MEDS: methylPREDNISolone SOD SUCCI 40 MG/ML 1 ML VIAL IV SCH ×2 (09:25→21:14)
[2020-12-16] MEDS: MEROPENEM 1 GM in SODIUM CHLORIDE 0.9% 100 ML IVPB SCH ×2 (09:26→21:14)
[2020-12-16] MEDS: ENOXAPARIN 30 MG/0.3 ML SYRINGE SQ SCH ×2 (09:32→21:14)
[2020-12-16] MEDS: PANTOPRAZOLE 40 MG/10 ML VIAL IVP SCH (09:32)
--- NOTE | 2020-12-16 10:57 | P.PN ---
Subjective Progress Note Date: 12/16/20 (Critical care time 35 minutes) Principal diagnosis: left renal mass Acute kidney injury Fluid overload Acute on chronic hypoxic respiratory failure with worsening status septic shock Bilateral gram-negative pneumonia due to ESBL E. coli Acute kidney injury Hyperkalemia Uncontrolled diabetes and hyperglycemia Pulmonary fibrosis due to prior extensive COVID-19 pneumonia Sepsis and fever of unknown region Generalized weakness and medical debility Asbestosis lung Advanced diabetes mellitus with hyperglycemia Chronic kidney disease stage III 12/16/2020, patient seen and evaluated examined, sedated with propofol drip and fentanyl drip, able to titrate oxygen down to 40% however could not drop to keep less than 8, oxygen saturation remains marginal at 88-90%, urine output is adequate up to 300 mL/h, remains on Lasix strip, generalized anasarca is present, off of that hemodialysis for last 48 hours patient appears to be in diuretic phase of acute kidney injury discussed with the staff at length, need to improve oxygen prior to lowering down the PEEP, continue auto diuresis with Lasix strip, however we'll titrate sedation down, will DC the fentanyl drip, c ontinue propofol, fentanyl will be used as needed, ventilator setting remains stable currently on assist control rate of 30, tidal volume 550, PEEP of 8, oxygen is 40%, labs reviewed white cell count 15,800, hemoglobin and hematocrit is stable 13 and 38, arterial blood gas revealed pH of 7.48 pCO2 42 pO2 62, a line is out, BUN/creatinine is 120 and 2.13, 12/14/2020, patient seen eval examined during the rounds overall respiratory status remains marginal patient is a however down to 50% oxygen saturation is 93%, he is sedated he is off of medical paralysis, currently is on propofol and fentanyl drip, vent setting is stable remains on assist control rate of 30 tidal volume 550, PEEP is 10 FiO2 is 50%, patient had a started making urine he is hemodialysis 2 [id number] currently is on 10 mg Lasix strip, labs and radiographic studies reviewed, x-ray shows diffuse bilateral infiltrate and no significant change, arterial blood gas significantly improved pH is 7.35 pCO2 47 pO2 87, white cell count down to 11,000, 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 new mass has been noted, urology has been following pending further evaluation until he stabilized 12/13/2020, patient seen eval examined during the rounds labs reviewed medications reviewed care plan discussed, at industry status the remains marginal 70% oxygen, patient remains on PEEP of 10, tidal volume is 550, rate is 30, ABG reviewed this morning slightly better, patient remains on Nimbex along with fentanyl and propofol, can taper and DC the Nimbex drip, patient had the first episode of hemodialysis yesterday over 2 L I've been removed however patient did require vasopressors during dialysis, currently undergoing second course of hemodialysis again back on levo fed postdialysis yesterday came off of U for drip without any problem issues, patient had ultrasound done which showed left-sided renal mass versus bowel shadow urology has been consulted, patient remains on broad-spectrum antibiotics labs reviewed x-ray reviewed care plan discussed with the staff at length 12/12/2020, patient seen eval examined during the rounds labs reviewed medications reviewed patient remains sedated and medically paralyzed, patient is on the propofol which is down to 40 mics, NIMBEX AND FENTANYL DRIP, HEMODYNAMIC STATUS IS STABLE OFF OF VASOPRESSORS, BLOOD PRESSURE STABLE, respiratory status remains very marginal along with fluid overload and anasarca attempted Lasix strip patient did not respond very well, patient remains on assist control with a rate of 30 tidal volume of 550, 10 of PEEP oxygen is 70%, unable to wean it down saturations marginal 91% only, peak airway pressure up into high 30s now persistent with poor compliance of the chest also component of fluid overload, labs reviewed white cell count remains stable 13,000, hemoglobin stable platelet count is 206,000, ABG revealed pH of 7.21, pCO2 50, pO2 72, sodium 138 production continued to be up to 6.3, BUN and creatinine increase to 96 and 2.66, 12/11/2020, patient seen eval reexamined during the rounds labs reviewed medications reviewed care plan discussed, respiratory status the remains marginal however patient started desaturating earlier this morning has a significant amount of respiratory and metabolic acidosis as well, patient has been +3 L in the last 24 hours, discussed with the renal service about incre asing diuretics or possibly starting on bicarb drip, renal function however remains stable, patient is sedated and medically paralyzed with fentanyl propofol Nimbex, discussed with staff about lowering down propofol drip to 30-40 mics, chest x-ray from today reviewed consistent with fluid overload fluid appears to be tracking into right major fissure, overall not much change from previous x-ray, patient remains on ventilator setting current setting includes assist control rate of 30, tidal volume of 550, FiO2 increase from 60% to 70%, sugars elevated have been on sliding scale, patient is tolerating tube feed fairly well, patient also noted to have progressive developing anasarca, noted labs white cell count continue to go down to 13,000, arterial blood gas continued magnificent respiratory and metabolic acidosis, significant component of diffusion impairment, hyperkalemia with potassium was 6.1, 12/10/2020, patient seen eval examined in the ICU, he remains intubated and medically sedated and paralyzed on the propofol, name backs and fentanyl drip, levo fed is now came off after fluid boluses, patient has significant metabolic acidosis due to multifactorial processes including acute kidney injury pneumonia and the vasopressors, patient has been on bicarb drip, being adjusted, to feed is in process, hemodynamic status is slightly better, FiO2 is started down to 70%, underwent setting includes assist control rate of 30 to volume of 550 10 of PEEP, arterial blood gases reviewed pH 7.14 pCO2 51 patient was given 1 amp of bicarb with the bicarb drip white cell count is down to 18,800, hemodynamic status slightly stable than before, overall plan is to continue to come down oxy gen monitor renal functions closely monitor hyperkalemia, repeat chemistry pending for later on today 12/09/2020, patient seen eval examined continued to have marginal hemodynamics and respiratory status, patient sedated medically paralyzed with Nimbex drip, propofol, fentanyl drip, arterial blood gases done this morning reveal severe metabolic and respiratory acidosis ventilator have been adjusted now new ventricular setting includes assist control rate of 30 to volume of 550 PEEP remains 10 oxygen is down to 90%, patient now on levo fed, we'll try to taper down the levo fed by giving fluids S patient is volume depleted as well and lowering down propofol aim to bring down propofol to 30-40 mics in next 24 hours, fluid will be given 100 mL an hour continuous with fluid boluses boluses of 500 mL/h for 2 hours, patient remains on meropenem, potassium noted to be elevated to 6.4, BUN/creatinine slightly up to 55 1.8, we'll give Kayexalate 2 doses, repeat BMP later on today 12/08/2020, patient seen eval examined during the rounds labs reviewed medications reviewed, critical care time spent 45 minutes, patient developed progressive increased respiratory distress was transferred to the ICU was intubated for respiratory distress, patient has dense bilateral infiltrate, sputum is positive for gram-negative rods, patient is hypotensive requiring fluid boluses likely will required vasopressors as well, for agitation has been placed on propofol for now has been on 75 need to be paralyzed, patient has been also started on fentanyl drip, patient has been on Cefepime for gram-negative pneumonia, final sputum culture have been pending, patient currently on full ventilator support with 100% oxygen and 10 of PEEP, rate is 26, breathing about 28-30, volume is 500, peak pressure in low 30s, blood pressure after the boluses 100/40, respiratory rate is 32, heart rate 81 temperature sats are 91%, 1 cell count is up to 23,000 hemoglobin is stable 14, d-dimer continue to go up 3.97, arterial blood gases revealed pH of 7.24 pCO2 58-year-old O2 of 80 8/2 an hour after on above ventilator setting, potentially was 5.5, BUN/creatinine 45 1.37, patient has a elevated inflammatory parameters including ferritin in 631, LDH is 1658 C-reactive protein 15.9 patient will need a central line, we will sedate and medically paralyzed, will start tube feed, monitor labs closely, patient will be started on Lovenox 30 mg subcu every 12 12/06/2020, patient seen eval reexamined labs reviewed medications reviewed care plan discussed, respiratory status remains marginal denies any chest pain, how ever more hypoxic currently on 15 L high flow oxygen, remains afebrile hemodynamically stable, oxygen saturation is 93%, check urgent pro-calcitonin as well as d-dimer, if d-dimer is elevated consider doing a VQ scan and duplex ultrasound lower extremity, we will also check an echocardiogram This is a 70-year-old male well-known to me patient has a severe diabetes mellitus and chronic kidney disease as baseline, 2 months ago patient was admitted to hospital with acute COVID-19 pneumonia and respiratory failure patient was on 100% oxygen and BiPAP but however successfully tapered down up to 4 L nasal cannula was discharged home patient did not came back for follow-up, for the last few days has been spiking fever more short of breath oxygen in increase to 5 L nasal cannula came into the hospital for further evaluation chest x-ray not much change his code went testing is negative, patient has been vaccinated for COVID-19 his most recent chest x-ray continued to show cardiomegaly chronic changes, no particular significant change from prior x- rays, patient does have a history of asbestosis lung however Objective - Vital Signs Vital signs: Vital Signs Temp 98.6 F 12/16/20 08:00 Pulse 58 L 12/16/20 09:30 Resp 30 H 12/16/20 09:30 BP 119/54 12/16/20 09:30 Pulse Ox 89 L 12/16/20 09:30 Intake & Output 12/15/20 12/16/20 12/16/20 18:59 06:59 18:59 Intake Total 736.257 921.358 182 Output Total 3505 3175 800 Balance -2768.743 -2253.642 -618 Intake: IV 246 273 92 Sodium Chloride 0.9% 1, 240 240 80 000 ml @ 20 mls/hr IV . Q24H [facility] Rx#:[id number] pressure bag 6 33 12 Intake, IV Titration 310.257 378.358 Amount Furosemide 100 mg In 116.667 Sodium Chloride 0.9% 90 ml @ 5 MG/HR 5 mls/hr IV .Q20H [facility] Rx#:[id number] Meropenem 1 gm In Sodium 100 Chloride 0.9% 100 ml @ 33 .3 mls/hr IVPB Q12HR [facility] Rx#:[id number] fentaNYL (PF). 1,000 mcg 96.199 100 In Sodium Chloride 0.9% 80 ml @ Per Protocol IV . Q0M [facility] Rx#:[id number] propofoL 1,000 mg In 97.391 178.358 Empty Bag 1 bag @ Titrate IV .Q0M [facility] Rx#: [id number] Tube Feeding 180 180 60 Other 90 30 Output: Urine 3505 3175 800 Other: Voiding Method Indwelling Catheter Indwelling Catheter Indwelling Catheter ABP, PAP, CO, CI - Last Documented Arterial Blood Pressure 124/55 - Exam - Constitutional General appearance: sedated on full ventilator support - Neck Neck: normal ROM Carotids: bilateral: upstroke normal Thyroid: bilateral: normal size - Respiratory Respiratory: bilateral: diminished, rales - Cardiovascular Rhythm: regular Heart sounds: normal: S1, S2 - Gastrointestinal General gastrointestinal: soft - Integumentary Integumentary: normal turgor - Neurologic Neurologic: CNII-XII intact - Musculoskeletal Musculoskeletal: gait normal, generalized weakness, strength equal bilaterally - Psychiatric Psychiatric: sedated on full ventilator support - Labs CBC & Chem 7: 12/16/20 04:34 12/16/20 04:34 Labs: Abnormal Lab Results - Last 24 Hours (Table) 12/15/20 12/15/20 12/15/20 Range/Units 11:49 16:13 20:03 WBC (3.8-10.6) k/uL Hct (39.0-53.0) % Neutrophils # (1.3-7.7) k/uL Lymphocytes # (1.0-4.8) k/uL Monocytes # (0-1.0) k/uL ABG pH (7.35-7.45) ABG pO2 (83-108) mmHg ABG HCO3 (21-25) mmol/L ABG Total CO2 (19-24) mmol/L ABG O2 Saturation (94-97) % BUN (9-20) mg/dL Creatinine (0.66-1.25) mg/dL Glucose (74-99) mg/dL POC Glucose (mg/dL) 125 H 153 H 172 H (75-99) mg/dL Total Protein (6.3-8.2) g/dL Albumin (3.5-5.0) g/dL 12/15/20 12/16/20 12/16/20 Range/Units 23:43 03:52 04:34 WBC 15.8 H (3.8-10.6) k/uL Hct 38.6 L (39.0-53.0) % Neutrophils # 13.7 H (1.3-7.7) k/uL Lymphocytes # 0.5 L (1.0-4.8) k/uL Monocytes # 1.1 H (0-1.0) k/uL ABG pH (7.35-7.45) ABG pO2 (83-108) mmHg ABG HCO3 (21-25) mmol/L ABG Total CO2 (19-24) mmol/L ABG O2 Saturation (94-97) % BUN (9-20) mg/dL Creatinine (0.66-1.25) mg/dL Glucose (74-99) mg/dL POC Glucose (mg/dL) 172 H 169 H (75-99) mg/dL Total Protein (6.3-8.2) g/dL Albumin (3.5-5.0) g/dL 12/16/20 12/16/20 12/16/20 Range/Units 04:34 05:38 07:46 WBC (3.8-10.6) k/uL Hct (39.0-53.0) % Neutrophils # (1.3-7.7) k/uL Lymphocytes # (1.0-4.8) k/uL Monocytes # (0-1.0) k/uL ABG pH 7.48 H (7.35-7.45) ABG pO2 62 L (83-108) mmHg ABG HCO3 31 H (21-25) mmol/L ABG Total CO2 32 H (19-24) mmol/L ABG O2 Saturation 91.0 L (94-97) % BUN 120 H* (9-20) mg/dL Creatinine 2.13 H (0.66-1.25) mg/dL Glucose 159 H (74-99) mg/dL POC Glucose (mg/dL) 151 H (75-99) mg/dL Total Protein 5.2 L (6.3-8.2) g/dL Albumin 2.8 L (3.5-5.0) g/dL Assessment and Plan Assessment: Acute respiratory failure with difficulty to wean due to marginal oxygenation acute kidney injury with fluid overload and anasarca, currently on diuretic phas e left renal mass with history of renal cell clear carcinoma, status post partial elective nephrectomy in 2019 gram-negative pneumonia due to ESBL E. coli Severe sepsis and septic shock due to gram-negative pneumonia Acute on chronic hypoxic and hypercapnic respiratory failure Acute lung injury and ARDS Developing progressive right-sided pleural effusion Acute kidney injury hyperkalemia Metabolic and respiratory acidosis Uncontrolled diabetes Pulmonary fibrosis due to extensive recentCOVID-19 pneumonia Asbestosis lung pulmonary nodule Advanced diabetes mellitus with hyperglycemia Chronic kidney disease stage III Plan: Continue auto diuresis with Lasix drip Follow renal functions closely Continue broad-spectrum antibiotics Ventilator adjustment as per orders as above patient status post second course of hemodialysis urine output has improved now will titrate oxygen down to 40% subsequently will bring down the PEEP as tolerated, continue weaning as tolerated Urology evaluation Patient is off of Nimbex drip ventilator adjustment status post central line Lovenox 30 mg subcu every 12 tube feed as per protocol Labs chest x-ray and ABG in the morning Off of Vasopressors Follow-up on [place] cultures including sputum urine and blood continue antibiotics IV steroids evaluation of pulmonary nodule once stabilized Time with Patient: Greater than 30
[2020-12-16 11:35] LABS: Glucose,Whole Blood 130 mg/dL (75-99)
[2020-12-16] MEDS ORDERED: fentaNYL (PF) 50 MCG/ML 2 ML AMP IVP PRN (13:16)
[2020-12-16] MEDS: atenoloL 25 MG TAB PO SCH (13:34)
--- NOTE | 2020-12-16 14:08 | PN ---
PROGRESS NOTE DATE OF SERVICE: 12/16/2020 REASON FOR FOLLOW UP: Pneumonia. INTERVAL HISTORY: The patient is afebrile. The patient is hemodynamically stable. Not on any pressor support. FIO2 is currently . No significant purulent secretions through the ET or diarrhea reported. Dialysis has been put on hold as the patient did have urine output per. The nursing staff. EXAMINATION: Blood pressure 116/74, pulse 50, temperature 98.6. He is 91% on 45% FIO2. General description is an elderly male lying in bed in no distress. Respiratory system: Unlabored breathing, decreased breath sounds in the bases. No wheeze. HEART: S1, S2. Regular rate and rhythm. Abdomen: Soft, no tenderness. LABORATORY DATA: Hemoglobin 14, white count 15.9, BUN 120, creatinine is 2.13. DIAGNOSTIC IMPRESSION AND PLAN: Patient with acute respiratory failure which is multifactorial with component of pneumonia. The patient has been covered with Meropenem while waiting for his condition to stabilize and monitor clinical course closely. Continue supportive care. MMODL / IJN: [id number] /
--- NOTE | 2020-12-16 14:40 | PN ---
PROGRESS NOTE Patient is seen for followup for acute kidney injury. The patient was hemodialysis dependent mostly for worsening renal function and volume overload. He was started on Lasix drip. However, his urine output has improved and dialysis is currently on hold. The patient's serum creatinine has actually improved down to 2.1 today from 2.68 yesterday without dialysis. His BUN however has increased to 120. He had about 6 L of urine output from the day before and overnight he has had 6.6 L. PHYSICAL EXAMINATION: On examination today, patient remains on the vent. His FiO2 has been decreased to 40%. The O2 sats about 87-93%. He is afebrile. Blood pressure was 124/65, heart rate 57 per minute. Examination shows patient is currently sedated. He is on the vent. Bilateral breath sounds are heard. Abdomen is soft, nontender. Examination of lower extremities shows edema 1+ bilaterally. SALES/MARKETING exam cannot be performed. LAB: Show sodium 138, potassium 4.8, chloride 102, CO2 is 29, BUN 120, creatinine 2.13, hemoglobin 13.1 g/dL. ASSESSMENT: 1. Acute kidney injury ATN secondary to sepsis, hypotension, initially oliguric and started on dialysis. Currently nonoliguric and currently off dialysis with good urine output. Patient was maintained on Lasix drip which was decreased to 5 mg/hour yesterday. He continues to have good urine output with 6.6 L of urine over the last 24 hours. I will discontinue the Lasix drip and switch to IV push Lasix. 2. Disproportionately elevated BUN associated with use of steroids. No obvious GI bleed. 3. Volume overload slowly improving. 4. Acute hypoxic respiratory failure secondary to pneumonia and fluid overload. 5. Left kidney mass. Urology on consult. 6. Pneumonia with sputum culture growing Escherichia coli. PLAN: Continue to hold off dialysis. Discontinue Lasix drip and switch to IV push Lasix. Repeat labs in a.m. Continue to avoid nephrotoxic agents. MMODL / IJN: [id number] /
[2020-12-16 16:29] LABS: Glucose,Whole Blood 136 mg/dL (75-99)
[2020-12-16] MEDS: FUROSEMIDE 10 MG/ML 4 ML VIAL IV SCH ×2 (16:40→23:36)
[2020-12-16 17:32] LABS: Glucose,Whole Blood 160 mg/dL (75-99)
[2020-12-16 19:43] LABS: Glucose,Whole Blood 164 mg/dL (75-99)
[2020-12-16] MEDS: INSULIN DETEMIR (LEVEMIR) 100 UNIT/ML SYR SQ SCH (21:31)
[2020-12-16 23:33] LABS: Glucose,Whole Blood 202 mg/dL (75-99)
[2020-12-17] MEDS: INSULIN ASPART (NovoLOG) 100 UNIT/ML VIAL SQ SCH ×6 (04:27→23:21)
[2020-12-17 04:28] LABS: Glucose,Whole Blood 187 mg/dL (75-99)
[2020-12-17 04:48] LABS: Calcium 9.2 mg/dL (8.4-10.2); Potassium 4.7 mmol/L (3.5-5.1); Total Bilirubin 0.8 mg/dL (0.2-1.3); Total Protein 5.8 g/dL (6.3-8.2)
[2020-12-17 05:01] LABS: HCT 41.1 % (39.0-53.0); HGB 13.6 gm/dL (13.0-17.5); MCH 28.6 pg (25.0-35.0); MCHC 32.9 g/dL (31.0-37.0); MCV 86.7 fL (80.0-100.0); Mean Platelet Volume 8.6; Platelet Count 245 k/uL (150-450); RBC 4.74 m/uL (4.30-5.90); RDW 15.2 % (11.5-15.5); WBC 16.7 k/uL (3.8-10.6)
[2020-12-17 05:25] LABS: ABG HCO3 33 mmol/L (21-25); ABG Oxygen Saturation 95.7 % (94-97); ABG PCO2 42 mmHg (35-45); ABG PH 7.51 (7.35-7.45); ABG PO2 83 mmHg (83-108); ABG TCO2 34 mmol/L (19-24); Allen Test Performed? Yes
[2020-12-17] MEDS: CISATRACURIUM 200 MG in SODIUM CHLORIDE 0.9% 180 ML IV SCH (05:41)
[2020-12-17 05:46] LABS: Band Neutrophils % 6 %; Lymphocytes # (M) 0.33 k/uL (1.0-4.8); Metamyelocytes # (M) 1.17 k/uL (0); Metamyelocytes % 7 %; Monocytes # (M) 0.67 k/uL (0-1.0); Myelocytes % 3 %; Neutrophils % (M) 78 %; Nucleated Red Blood Cells 0 /100 WBC (0-0); Total Cells Counted 100
[2020-12-17] MEDS: SYMBICORT 160-4.5 MCG INHALER INHALATION SCH ×2 (07:26→20:11)
[2020-12-17] MEDS: ALBUTEROL HFA INHALER INHALATION PRN ×4 (07:26→20:11)
--- NOTE | 2020-12-17 08:10 | XR ---
EXAMINATION TYPE: XR chest 1V portable DATE OF EXAM: 12/17/2020 CLINICAL HISTORY: Difficulty breathing progress study. TECHNIQUE: Single AP portable semiupright view of the chest is obtained. COMPARISON: Chest x-ray from one day earlier and older studies FINDINGS: Stable endotracheal and orogastric tubes. Stable right internal jugular central venous cat heter. There is background chronic parenchymal changes with persistent bilateral multifocal and confluent op acities. The cardiac silhouette size remains enlarged with atherosclerotic thoracic aorta. Patient remains rotated to the right . IMPRESSION: Chronic parenchymal changes and cardiomegaly with persistent bilateral multifocal and co nfluent opacities consistent with covid-19 infection. No significant change from one day earlier.
[2020-12-17] MEDS: atenoloL 25 MG TAB PO SCH (09:00)
[2020-12-17 09:11] LABS: Glucose,Whole Blood 176 mg/dL (75-99)
[2020-12-17] MEDS: CHLORHEXIDINE GLUCONATE 15 ML CUP MUCOUS MEM SCH ×2 (09:17→20:26)
[2020-12-17] MEDS: CHOLECALCIFEROL 25 MCG (1000 IU) TABLET PO SCH (09:17)
[2020-12-17] MEDS: methylPREDNISolone SOD SUCCI 40 MG/ML 1 ML VIAL IV SCH ×2 (09:17→20:25)
[2020-12-17] MEDS: SENNOSIDES 8.6 MG TAB PO SCH ×2 (09:17→20:26)
[2020-12-17] MEDS: ZINC SULFATE 220 MG CAP PO SCH (09:17)
[2020-12-17] MEDS: GABAPENTIN 300 MG CAP PO SCH (09:17)
[2020-12-17] MEDS: PANTOPRAZOLE 40 MG/10 ML VIAL IVP SCH (09:17)
[2020-12-17] MEDS: ENOXAPARIN 30 MG/0.3 ML SYRINGE SQ SCH ×2 (09:17→20:26)
[2020-12-17] MEDS: FUROSEMIDE 10 MG/ML 4 ML VIAL IV SCH ×3 (09:17→23:21)
[2020-12-17] MEDS: MEROPENEM 1 GM in SODIUM CHLORIDE 0.9% 100 ML IVPB SCH ×2 (09:20→20:26)
--- NOTE | 2020-12-17 09:56 | P.PN ---
Subjective Patient is seen in follow-up for acute kidney injury. Maintained on IV Lasix. Nonoliguric. Creatinine trending down. Intubated. Receiving tube feeding. Vital signs are stable. HEENT: Intubated. LUNGS: Breath sounds decreased. HEART: Rate and Rhythm are regular. ABDOMEN: Soft, no distention. EXTREMITITES: 1+ edema. Objective - Vital Signs Vital signs: Vital Signs Temp 98.6 F 12/17/20 04:00 Pulse 71 12/17/20 07:00 Resp 30 H 12/17/20 07:00 BP 131/61 12/17/20 07:00 Pulse Ox 93 L 12/17/20 07:00 Intake & Output 12/16/20 12/17/20 12/17/20 18:59 06:59 18:59 Intake Total 601 841 53 Output Total 1370 2625 250 Balance -769 -1784 -197 Weight 115.666 kg Intake: IV 276 276 23 Sodium Chloride 0.9% 1, 240 240 20 000 ml @ 20 mls/hr IV . Q24H [facility] Rx#:[id number] pressure bag 36 36 3 Intake, IV Titration 100 100 Amount propofoL 1,000 mg In 100 100 Empty Bag 1 bag @ Titrate IV .Q0M [facility] Rx#: [id number] Tube Feeding 195 420 30 Other 30 45 Output: Urine 1370 2625 250 Other: Voiding Method Indwelling Catheter Indwelling Catheter ABP, PAP, CO, CI - Last Documented Arterial Blood Pressure 124/55 - Labs CBC & Chem 7: 12/17/20 03:51 12/17/20 03:51 Labs: Abnormal Lab Results - Last 24 Hours (Table) 12/16/20 12/16/20 12/16/20 Range/Units 11:34 16:28 17:31 WBC (3.8-10.6) k/uL Neutrophils # (Manual) (1.3-7.7) k/uL Lymphocytes # (Manual) (1.0-4.8) k/uL Metamyelocytes # (Man) (0) k/uL Myelocytes # (Manual) (0) k/uL ABG pH (7.35-7.45) ABG HCO3 (21-25) mmol/L ABG Total CO2 (19-24) mmol/L Carbon Dioxide (22-30) mmol/L BUN (9-20) mg/dL Creatinine (0.66-1.25) mg/dL Glucose (74-99) mg/dL POC Glucose (mg/dL) 130 H 136 H 160 H (75-99) mg/dL Total Protein (6.3-8.2) g/dL Albumin (3.5-5.0) g/dL 12/16/20 12/16/20 12/17/20 Range/Units 19:42 23:32 03:51 WBC 16.7 H (3.8-10.6) k/uL Neutrophils # (Manual) 14.00 H (1.3-7.7) k/uL Lymphocytes # (Manual) 0.33 L (1.0-4.8) k/uL Metamyelocytes # (Man) 1.17 H (0) k/uL Myelocytes # (Manual) 0.50 H (0) k/uL ABG pH (7.35-7.45) ABG HCO3 (21-25) mmol/L ABG Total CO2 (19-24) mmol/L Carbon Dioxide (22-30) mmol/L BUN (9-20) mg/dL Creatinine (0.66-1.25) mg/dL Glucose (74-99) mg/dL POC Glucose (mg/dL) 164 H 202 H (75-99) mg/dL Total Protein (6.3-8.2) g/dL Albumin (3.5-5.0) g/dL 12/17/20 12/17/20 12/17/20 Range/Units 03:51 04:26 05:20 WBC (3.8-10.6) k/uL Neutrophils # (Manual) (1.3-7.7) k/uL Lymphocytes # (Manual) (1.0-4.8) k/uL Metamyelocytes # (Man) (0) k/uL Myelocytes # (Manual) (0) k/uL ABG pH 7.51 H (7.35-7.45) ABG HCO3 33 H (21-25) mmol/L ABG Total CO2 34 H (19-24) mmol/L Carbon Dioxide 32 H (22-30) mmol/L BUN 129 H* (9-20) mg/dL Creatinine 1.84 H (0.66-1.25) mg/dL Glucose 195 H (74-99) mg/dL POC Glucose (mg/dL) 187 H (75-99) mg/dL Total Protein 5.8 L (6.3-8.2) g/dL Albumin 3.0 L (3.5-5.0) g/dL 12/17/20 Range/Units 09:10 WBC (3.8-10.6) k/uL Neutrophils # (Manual) (1.3-7.7) k/uL Lymphocytes # (Manual) (1.0-4.8) k/uL Metamyelocytes # (Man) (0) k/uL Myelocytes # (Manual) (0) k/uL ABG pH (7.35-7.45) ABG HCO3 (21-25) mmol/L ABG Total CO2 (19-24) mmol/L Carbon Dioxide (22-30) mmol/L BUN (9-20) mg/dL Creatinine (0.66-1.25) mg/dL Glucose (74-99) mg/dL POC Glucose (mg/dL) 176 H (75-99) mg/dL Total Protein (6.3-8.2) g/dL Albumin (3.5-5.0) g/dL Assessment and Plan Plan: Assessment: 1. Acute kidney injury secondary to ATN secondary to sepsis. Status post hemodialysis this admission. Renal function improving. Nonoliguric. 2. Disproportionally elevated BUN secondary to acute kidney injury and steroids. 3. Volume overload. Improving with diuresis. 4. Acute hypoxic respiratory failure secondary to pneumonia and fluid overload. 5. Pneumonia maintained on antibiotics. 6. History of renal carcinoma status post right partial nephrectomy in November 28. Urology following. Plan: Maintain IV Lasix. Avoid nephrotoxins. Maintain tube feeding. Wean FiO2. Continue to monitor renal function and urine output.
--- NOTE | 2020-12-17 10:52 | P.PN ---
Subjective Progress Note Date: 12/17/20 Principal diagnosis: left renal mass Acute kidney injury Fluid overload Acute on chronic hypoxic respiratory failure with worsening status septic shock Bilateral gram-negative pneumonia due to ESBL E. coli Acute kidney injury Hyperkalemia Uncontrolled diabetes and hyperglycemia Pulmonary fibrosis due to prior extensive COVID-19 pneumonia Sepsis and fever of unknown region Generalized weakness and medical debility Asbestosis lung Advanced diabetes mellitus with hyperglycemia Chronic kidney disease stage III 12/17/2020, patient seen eval examined during the rounds labs reviewed medications reviewed care plan discussed, respiratory status slowly improving, FiO2 down to 50% saturation is 94%, PEEP is down to 8, patient remains on propofol 20 mics, arterial blood gas indicated above respiratory and metabolic alkalosis, patient has been having adequate urine output, Lasix drip has been discontinued, remains on broad-spectrum antibiotics and IV fluids, bland overall today is to taper down the sedation give sedation holidays decrease the respiratory rate to 20 and decrease the PEEP to 5, will assess mental status once awake slow weaning to be continued, WBC count 16,700, hemoglobin and hematocrit stable, arterial blood gas revealed pH is 7.5 pCO2 42 pO2 of 83, BUN/creatinine remains 129 and 1.84 overall remains stable in last 48 hours 12/16/2020, patient seen and evaluated examined, sedated with propofol drip and fentanyl drip, able to titrate oxygen down to 40% however could not drop to keep less than 8, oxygen saturation remains marginal at 88-90%, urine output is adequate up to 300 mL/h, remains on Lasix strip, generalized anasarca is present , off of that hemodialysis for last 48 hours patient appears to be in diuretic phase of acute kidney injury discussed with the staff at length, need to improve oxygen prior to lowering down the PEEP, continue auto diuresis with Lasix strip, however we'll titrate sedation down, will DC the fentanyl drip, continue propofol, fentanyl will be used as needed, ventilator setting remains stable currently on assist control rate of 30, tidal volume 550, PEEP of 8, oxygen is 40%, labs reviewed white cell count 15,800, hemoglobin and hematocrit is stable 13 and 38, arterial blood gas revealed pH of 7.48 pCO2 42 pO2 62, a line is out, BUN/creatinine is 120 and 2.13, 12/14/2020, patient seen eval examined during the rounds overall respiratory status remains marginal patient is a however down to 50% oxygen saturation is 93%, he is sedated he is off of medical paralysis, currently is on propofol and fentanyl drip, vent setting is stable remains on assist control rate of 30 tidal volume 550, PEEP is 10 FiO2 is 50%, patient had a started making urine he is hemodialysis 2 [id number] currently is on 10 mg Lasix strip, labs and radiographic studies reviewed, x-ray shows diffuse bilateral infiltrate and no significant change, arterial blood gas significantly improved pH is 7.35 pCO2 47 pO2 87, white cell count down to 11,000, 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 new mass has been noted, urology has been following pending further evaluation until he stabilized 12/13/2020, patient seen eval examined during the rounds labs reviewed medications reviewed care plan discussed, at industry status the remains marginal 70% oxygen, patient remains on PEEP of 10, tidal volume is 550, rate is 30, ABG reviewed this morning slightly better, patient remains on Nimbex along with fentanyl and propofol, can taper and DC the Nimbex drip, patient had the first episode of hemodialysis yesterday over 2 L I've been removed however patient did require vasopressors during dialysis, currently undergoing second course of hemodialysis again back on levo fed postdialysis yesterday came off of U for drip without any problem issues, patient had ultrasound done which showed left-sided renal mass versus bowel shadow urology has been consulted, patient remains on broad-spectrum antibiotics labs reviewed x-ray reviewed care plan discussed with the staff at length 12/12/2020, patient seen eval examined during the rounds labs reviewed medications reviewed patient remains sedated and medically paralyzed, patient is on the propofol which is down to 40 mics, NIMBEX AND FENTANYL DRIP, HEMODYNAMIC STATUS IS STABLE OFF OF VASOPRESSORS, BLOOD PRESSURE STABLE, respiratory status remains very marginal along with fluid overload and anasarca attempted Lasix strip patient did not respond very well, patient remains on assist control with a rate of 30 tidal volume of 550, 10 of PEEP oxygen is 70%, unable to wean it down saturations marginal 91% only, peak airway pressure up into high 30s now persistent with poor compliance of the chest also component of fluid overload, labs reviewed white cell count remains stable 13,000, hemoglobin stable platelet count is 206,000, ABG revealed pH of 7.21, pCO2 50, pO2 72, sodium 138 production continued to be up to 6.3, BUN and creatinine increase to 96 and 2.66, 12/11/2020, patient seen eval reexamined during the rounds labs reviewed medications reviewed care plan discussed, respiratory status the remains marginal however patient started desaturating earlier this morning has a significant amount of respiratory and metabolic acidosis as well, patient has been +3 L in the last 24 hours, discussed with the renal service about increasing diuretics or possibly starting on bicarb drip, renal function however remains stable, patient is sedated and medically paralyzed with fentanyl propofol Nimbex, discussed with staff about lowering down propofol drip to 30-40 mics, chest x-ray from today reviewed consistent with fluid overload fluid appears to be tracking into right major fissure, overall not much change from previous x-ray, patient remains on ventilator setting current setting includes assist control rate of 30, tidal volume of 550, FiO2 increase from 60% to 70%, sugars elevated have been on sliding scale, patient is tolerating tube feed fairly well, patient also noted to have progressive developing anasarca, noted labs white cell count continue to go down to 13,000, arterial blood gas continued magnificent respiratory and metabolic acidosis, significant component of diffusion impairment, hyperkalemia with potassium was 6.1, 12/10/2020, patient seen eval examined in the ICU, he remains intubated and medically sedated and paralyzed on the propofol, name backs and fentanyl drip, levo fed is now came off after fluid boluses, patient has significant metabolic acidosis due to multifactorial processes including acute kidney injury pneumonia and the vasopressors, patient has been on bicarb drip, being adjusted, to feed is in process, hemodynamic status is slightly better, FiO2 is started down to 70%, underwent setting includes assist control rate of 30 to volume of 550 10 of PEEP, arterial blood gases reviewed pH 7.14 pCO2 51 patient was given 1 amp of bicarb with the bicarb drip white cell count is down to 18,800, hemodynamic status slightly stable than before, overall plan is to continue to come down oxygen monitor renal functions closely monitor hyperkalemia, repeat chemistry pending for later on today 12/09/2020, patient seen eval examined continued to have marginal hemodynamics and respiratory status, patient sedated medically paralyzed with Nimbex drip, propofol, fentanyl drip, arterial blood gases done this morning reveal severe metabolic and respiratory acidosis ventilator have been adjusted now new ventricular setting includes assist control rate of 30 to volume of 550 PEEP remains 10 oxygen is down to 90%, patient now on levo fed, we'll try to taper down the levo fed by giving fluids S patient is volume depleted as well and lowering down propofol aim to bring down propofol to 30-40 mics in next 24 hours, fluid will be given 100 mL an hour continuous with fluid boluses boluses of 500 mL/h for 2 hours, patient remains on meropenem, potassium noted to be elevated to 6.4, BUN/creatinine slightly up to 55 1.8, we'll give Kayexalate 2 doses, repeat BMP later on today 12/08/2020, patient seen eval examined during the rounds labs reviewed medications reviewed, critical care time spent 45 minutes, patient developed progressive increased respiratory distress was transferred to the ICU was intubated for respiratory distress, patient has dense bilateral infiltrate, sputum is positive for gram-negative rods, patient is hypotensive requiring fluid boluses likely will required vasopressors as well, for agitation has been placed on propofol for now has been on 75 need to be paralyzed, patient has been also started on fentanyl drip, patient has been on Cefepime for gram-negative pneumonia, final sputum culture have been pending, patient currently on full ventilator support with 100% oxygen and 10 of PEEP, rate is 26, breathing about 28-30, volume is 500, peak pressure in low 30s, blood pressure after the boluses 100/40, respiratory rate is 32, heart rate 81 temperature sats are 91%, 1 cell count is up to 23,000 hemoglobin is stable 14, d-dimer continue to go up 3.97, arterial blood gases revealed pH of 7.24 pCO2 58-year-old O2 of 80 8/2 an hour after on above ventilator setting, potentially was 5.5, BUN/creatinine 45 1.37, patient has a elevated inflammatory parameters including ferritin in 631, LDH is 1658 C-reactive protein 15.9 patient will need a central line, we will sedate and medically paralyzed, will start tube feed, monitor labs closely, patient wi ll be started on Lovenox 30 mg subcu every 12 12/06/2020, patient seen eval reexamined labs reviewed medications reviewed care plan discussed, respiratory status remains marginal denies any chest pain, however more hypoxic currently on 15 L high flow oxygen, remains afebrile hemodynamically stable, oxygen saturation is 93%, check urgent pro-calcitonin as well as d-dimer, if d-dimer is elevated consider doing a VQ scan and duplex ultrasound lower extremity, we will also check an echocardiogram This is a 70-year-old male well-known to me patient has a severe diabetes mellitus and chronic kidney disease as baseline, 2 months ago patient was admitted to hospital with acute COVID-19 pneumonia and respiratory failure patient was on 100% oxygen and BiPAP but however successfully tapered down up to 4 L nasal cannula was discharged home patient did not came back for follow-up, for the last few days has been spiking fever more short of breath oxygen in increase to 5 L nasal cannula came into the hospital for further evaluation chest x-ray not much change his code went testing is negative, patient has been vaccinated for COVID-19 his most recent chest x-ray continued to show cardiomegaly chronic changes, no particular significant change from prior x- rays, patient does have a history of asbestosis lung however Objective - Vital Signs Vital signs: Vital Signs Temp 98.3 F 12/17/20 08:00 Pulse 71 12/17/20 10:30 Resp 30 H 12/17/20 10:30 BP 133/65 12/17/20 10:30 Pulse Ox 94 L 12/17/20 10:30 Intake & Output 12/16/20 12/17/20 12/17/20 18:59 06:59 18:59 Intake Total 601 841 272 Output Total 1370 2625 750 Balance -769 -2064 -478 Weight 115.666 kg Intake: IV 276 276 92 Sodium Chloride 0.9% 1, 240 240 80 000 ml @ 20 mls/hr IV . Q24H [facility] Rx#:[id number] pressure bag 36 36 12 Intake, IV Titration 100 100 Amount propofoL 1,000 mg In 100 100 Empty Bag 1 bag @ Titrate IV .Q0M IS[facility]LE Rx#: [id number] Tube Feeding 195 420 150 Other 30 45 30 Output: Urine 1370 2625 750 Other: Voiding Method Indwelling Catheter Indwelling Catheter Indwelling Catheter ABP, PAP, CO, CI - Last Documented Arterial Blood Pressure 124/55 - Exam - Constitutional General appearance: sedated on full ventilator support - Neck Neck: normal ROM Carotids: bilateral: upstroke normal Thyroid: bilateral: normal size - Respiratory Respiratory: bilateral: diminished, rales - Cardiovascular Rhythm: regular Heart sounds: normal: S1, S2 - Gastrointestinal General gastrointestinal: soft - Integumentary Integumentary: normal turgor - Neurologic Neurologic: CNII-XII intact - Musculoskeletal Musculoskeletal: gait normal, generalized weakness, strength equal bilaterally - Psychiatric Psychiatric: sedated on full ventilator support - Labs CBC & Chem 7: 12/17/20 03:51 12/17/20 03:51 Labs: Abnormal Lab Results - Last 24 Hours (Table) 12/16/20 12/16/20 12/16/20 Range/Units 11:34 16:28 17:31 WBC (3.8-10.6) k/uL Neutrophils # (Manual) (1.3-7.7) k/uL Lymphocytes # (Manual) (1.0-4.8) k/uL Metamyelocytes # (Man) (0) k/uL Myelocytes # (Manual) (0) k/uL ABG pH (7.35-7.45) ABG HCO3 (21-25) mmol/L ABG Total CO2 (19-24) mmol/L Carbon Dioxide (22-30) mmol/L BUN (9-20) mg/dL Creatinine (0.66-1.25) mg/dL Glucose (74-99) mg/dL POC Glucose (mg/dL) 130 H 136 H 160 H (75-99) mg/dL Total Protein (6.3-8.2) g/dL Albumin (3.5-5.0) g/dL 12/16/20 12/16/20 12/17/20 Range/Units 19:42 23:32 03:51 WBC 16.7 H (3.8-10.6) k/uL Neutrophils # (Manual) 14.00 H (1.3-7.7) k/uL Lymphocytes # (Manual) 0.33 L (1.0-4.8) k/uL Metamyelocytes # (Man) 1.17 H (0) k/uL Myelocytes # (Manual) 0.50 H (0) k/uL ABG pH (7.35-7.45) ABG HCO3 (21-25) mmol/L ABG Total CO2 (19-24) mmol/L Carbon Dioxide (22-30) mmol/L BUN (9-20) mg/dL Creatinine (0.66-1.25) mg/dL Glucose (74-99) mg/dL POC Glucose (mg/dL) 164 H 202 H (75-99) mg/dL Total Protein (6.3-8.2) g/dL Albumin (3.5-5.0) g/dL 12/17/20 12/17/20 12/17/20 Range/Units 03:51 04:26 05:20 WBC (3.8-10.6) k/uL Neutrophils # (Manual) (1.3-7.7) k/uL Lymphocytes # (Manual) (1.0-4.8) k/uL Metamyelocytes # (Man) (0) k/uL Myelocytes # (Manual) (0) k/uL ABG pH 7.51 H (7.35-7.45) ABG HCO3 33 H (21-25) mmol/L ABG Total CO2 34 H (19-24) mmol/L Carbon Dioxide 32 H (22-30) mmol/L BUN 129 H* (9-20) mg/dL Creatinine 1.84 H (0.66-1.25) mg/dL Glucose 195 H (74-99) mg/dL POC Glucose (mg/dL) 187 H (75-99) mg/dL Total Protein 5.8 L (6.3-8.2) g/dL Albumin 3.0 L (3.5-5.0) g/dL 12/17/20 Range/Units 09:10 WBC (3.8-10.6) k/uL Neutrophils # (Manual) (1.3-7.7) k/uL Lymphocytes # (Manual) (1.0-4.8) k/uL Metamyelocytes # (Man) (0) k/uL Myelocytes # (Manual) (0) k/uL ABG pH (7.35-7.45) ABG HCO3 (21-25) mmol/L ABG Total CO2 (19-24) mmol/L Carbon Dioxide (22-30) mmol/L BUN (9-20) mg/dL Creatinine (0.66-1.25) mg/dL Glucose (74-99) mg/dL POC Glucose (mg/dL) 176 H (75-99) mg/dL Total Protein (6.3-8.2) g/dL Albumin (3.5-5.0) g/dL Assessment and Plan Assessment: Acute respiratory failure with difficulty to wean due to marginal oxygenation, withdraws the sedation ventilator adjustment acute kidney injury with fluid overload and anasarca, currently on diuretic phase left renal mass with history of renal cell clear carcinoma, status post partial elective nephrectomy in 2019 gram-negative pneumonia due to ESBL E. coli Severe sepsis and septic shock due to gram-negative pneumonia Acute on chronic hypoxic and hypercapnic respiratory failure Acute lung injury and ARDS Developing progressive right-sided pleural effusion Acute kidney injury hyperkalemia Metabolic and respiratory acidosis Uncontrolled diabetes Pulmonary fibrosis due to extensive recentCOVID-19 pneumonia Asbestosis lung pulmonary nodule Advanced diabetes mellitus with hyperglycemia Chronic kidney disease stage III Plan: Continue auto diuresis with Lasix IV Withdraw sedation assess mental status ventilator adjustment Follow renal functions closely Continue broad-spectrum antibiotics Ventilator adjustment as per orders as above patient status post second course of hemodialysis urine output has improved now will titrate oxygen down to 40% subsequently will bring down the PEEP as tolerated, continue weaning as tolerated Urology evaluation Patient is off of Nimbex drip ventilator adjustment status post central line Lovenox 30 mg subcu every 12 tube feed as per protocol Labs chest x-ray and ABG in the morning Off of Vasopressors Follow-up on [place] cultures including sputum urine and blood continue antibiotics IV steroids evaluation of pulmonary nodule once stabilized Time with Patient: Greater than 30
[2020-12-17] MEDS: NOREPINEPHRINE 4 MG in SODIUM CHLORIDE 0.9% 250 ML IV SCH ×2 (11:42→23:16)
[2020-12-17 11:45] LABS: Glucose,Whole Blood 176 mg/dL (75-99)
[2020-12-17 15:56] LABS: Glucose,Whole Blood 159 mg/dL (75-99)
[2020-12-17 20:13] LABS: Glucose,Whole Blood 206 mg/dL (75-99)
[2020-12-17] MEDS: INSULIN DETEMIR (LEVEMIR) 100 UNIT/ML SYR SQ SCH (20:26)
--- NOTE | 2020-12-17 22:57 | PN ---
PROGRESS NOTE DATE OF SERVICE: 12/17/2020 REASON FOR FOLLOWUP: Pneumonia. INTERVAL HISTORY: The patient is currently afebrile. The patient is hemodynamically stable. The patient's FiO2 is currently stable at 50%. No significant purulent secretions through the ET or diarrhea reported by the nursing staff. PHYSICAL EXAMINATION: Blood pressure 127/67, pulse of 70. Temperature is 97.5. He is 96% on 50% FiO2. General description is an elderly male lying in in no distress. Respiratory system: Unlabored breathing, decreased breath sounds in the bases. No wheeze. HEART: S1, S2. Regular rate and rhythm. ABDOMEN: Soft, no tenderness. LABS: Hemoglobin is 13.4, white count 16.7. BUN 129, creatinine is 1.84. DIAGNOSTIC IMPRESSION AND PLAN: Patient with sign of respiratory failure multifactorial with a component of pneumonia. Sputum initially was ESBL E coli. Repeat showing [place], now with worsening of the white count. Concern for possible oropharyngeal candidiasis. and monitor response. Continue supportive care. MMODL / IJN: [id number] /
[2020-12-17 23:20] LABS: Glucose,Whole Blood 196 mg/dL (75-99)
[2020-12-17] MEDS ORDERED: ANIDULAFUNGIN 200 MG in SODIUM CHLORIDE 0.9% 200 ML IVPB ONE (23:30)
--- NOTE | 2020-12-18 00:25 | P.PN ---
Subjective Progress Note Date: 12/16/20 Principal diagnosis: secondary bacterial pneumonia and he was recently discharged after he was treated for Covid 19 . Patient is a pleasant 70-year-old male came in with the complaints of shortness of breath on 4 L of oxygen and oxygen saturation is going down to 78%. Patient is comparing of cough with yellowish sputum production. Patient was having high-grade fevers patient denied any dysuria patient denied nausea vomiting. Patient was discharged from the hospital after 3 week treatment for Covid 19 patient was discharged earlier this month. Patient came back positive again on of this month patient did receive both Covid vaccines. Patient's creatinine at the time of discharge is around 1.3 presently around 1.3. Patient is bit hyponatremic. Patient at a chest x-ray which is showing bilateral infiltrates consistent with Covid 19, although infiltrates are mildly better compared to the previous x-rays. 12/05/2020 Patient continues to have fevers is pretty status appears to have worsened a bit and patient is an 5 L of oxygen is still bit hypoxic and patient is in mild respiratory distress. Patient is being treated for secondary bacterial pneumonia. Repeat Covid 19 PCR is negative now. Patient blood sugars are well controlled. Dec 09 2020 Patient respiratory status worsened patient went into septic shock was subsequently transferred to intensive care unit with sputum cultures are showing ESBL E. coli patient was started on meropenem. Patient's ABGs consistent with the acidosis and both hypoxic as well as hypercapnic respiratory failure patient is presently on ventilator support. Assist control ventilation with PEEP of 10 have out of 90% set up respiratory rate of around 20 and tidal volume of 550. Patient is also numb nor- epinephrine. Patient is in septic shock. has very minimal urine output patient appears to have acute to the necrosis and patient has elevated creatinine of 2.15. Patient's potassium is elevated to 6.4 received Late has come down to 5.8. Patient is on the propofol sedation patient is also receiving systemic steroids. Atenolol and the Norvasc will be discontinued 12/10/2020 Patient remains on ventilator support with set up respiratory to for 30, tidal volume of 550, PEEP of 10 and FiO2 of 70% patient was on FiO2 of 100% yesterday. Patient remains on the propofol and Nimbex. Patient is off the levo fed. Remains on meropenem since the December 08. 12/11/2020 Patient remains acidotic with hypercapnia, respiratory is doses. Patient remains on the same and settings as yesterday. Patient is hypokalemic nephrology is managing this. Patient creatinine remained stable at 2.2. Patient's blood sugars are high will add short-acting insulin every 6 hours patient is receiving OG tube feedings, Nepro. Patient is back on norepinephrine. His leukocytosis although can you to improve. 12/12/2020 Visit acidosis improved patient remains in the same symptoms when settings as yesterday. Patient was started on hemodialysis because of persistent hyperkalemia volume overload poor urine output. Patient chest x-ray showing pulmonary edema patient has extensive anasarca. Patient is presently not on norepinephrine. Patient is on IV Lasix drip. 12/13/2020 and patient appears to have improvement in overall clinical condition patient had hemodialysis with removal of around 2.5 L today patient started urinating again. Patient has good urine output today. Patient still has peripheral edema patient FiO2 requirements have come down and patient is presently on 60% FiO2 did patient acidosis improved and pH is close to normal Review of systems: Unable to obtain due to his clinical condition. Potassium is 5.5. 12/14/2020 Patient remains intubated patient is presently on 45% FiO2. Patient is urinating well around 200 mL per hour patient volume status improved respiratory status improved 18 is improving patient hemodialysis is on hold is on IV Lasix drip. Patient is presently not on pressor support. Chest x-ray still showing diffuse bilateral infiltrates without any significant change white blood cell count improved to 11,000. Patient had partial nephrectomy in the past for carcinoma. Urology is following the patient because of new mass in the kidney 12/15/2020 Patient is presently on FiO2 of 50% which is up from yesterday his overall anasarca is better lungs diminished on exam. Patient is both on propofol and f entanyl for sedation remains on ventilator support has good urine output continue to hold hemodialysis. 12/16/2020 Patient is in the MICU. Currently on mechanical ventilator and sedated. FiO2 40% today. Patient has been afebrile. Urine output is adequate. Currently being continued Lasix drip due to anasarca.. Creatinine level is 2.13 today. Nephrology and pulmonary is on board. Laboratory data showed WBC 15.8, hemoglobin 14.8 and lymphocytes 0.5 BUN 120 and creatinine 2.13. Antibiotics in the form of meropenem. Continue IV steroids and updrafts.. Chest x-ray showed chronic parenchymal changes and cardiomegaly with persistent bilateral multifocal and confluent opacities consistent with COVID-19 infection. Current medications reviewed. All inpatient medications were reviewed and appropriate changes in these medications as dictated in the interval history and assessment and plan. Objective - Vital Signs Vital signs: Vital Signs Temp 98.6 F 12/16/20 08:00 Pulse 58 L 12/16/20 09:30 Resp 30 H 12/16/20 09:30 BP 119/54 12/16/20 09:30 Pulse Ox 89 L 12/16/20 09:30 Intake & Output 12/15/20 12/16/20 12/16/20 18:59 06:59 18:59 Intake Total 736.257 921.358 182 Output Total 3505 3175 800 Balance -2768.743 -2253.642 -618 Intake: IV 246 273 92 Sodium Chloride 0.9% 1, 240 240 80 000 ml @ 20 mls/hr IV . Q24H [facility] Rx#:[id number] pressure bag 6 33 12 Intake, IV Titration 310.257 378.358 Amount Furosemide 100 mg In 116.667 Sodium Chloride 0.9% 90 ml @ 5 MG/HR 5 mls/hr IV .Q20H [facility] Rx#:[id number] Meropenem 1 gm In Sodium 100 Chloride 0.9% 100 ml @ 33 .3 mls/hr IVPB Q12HR [facility] Rx#:[id number] fentaNYL (PF). 1,000 mcg 96.199 100 In Sodium Chloride 0.9% 80 ml @ Per Protocol IV . Q0M [facility] Rx#:[id number] propofoL 1,000 mg In 97.391 178.358 Empty Bag 1 bag @ Titrate IV .Q0M [facility] Rx#: [id number] Tube Feeding 180 180 60 Other 90 30 Output: Urine 3505 3175 800 Other: Voiding Method Indwelling Catheter Indwelling Catheter Indwelling Catheter ABP, PAP, CO, CI - Last Documented Arterial Blood Pressure 124/55 - Exam PHYSICAL EXAMINATION: GENERAL: Patient is intubated sedated HEENT: Pupils are round and equally reacting to light. EOMI. No scleral icterus. No conjunctival pallor. Normocephalic, atraumatic. No pharyngeal erythema. No thyromegaly. CARDIOVASCULAR: S1 and S2 present. No murmurs, rubs, or gallops. PULMONARY: Sounds and diminished air entry into bilateral lung tavarez ABDOMEN: Soft, nontender, nondistended, normoactive bowel sounds. No palpable organomegaly. MUSCULOSKELETAL: No joint swelling or deformity. EXTREMITIES: No cyanosis, clubbing, or pedal edema. NEUROLOGICAL: Sedated. SKIN: No rashes. - Labs CBC & Chem 7: 12/17/20 03:51 12/17/20 03:51 Labs: Abnormal Lab Results - Last 24 Hours (Table) 12/15/20 12/15/20 12/15/20 Range/Units 11:49 16:13 20:03 WBC (3.8-10.6) k/uL Hct (39.0-53.0) % Neutrophils # (1.3-7.7) k/uL Lymphocytes # (1.0-4.8) k/uL Monocytes # (0-1.0) k/uL ABG pH (7.35-7.45) ABG pO2 (83-108) mmHg ABG HCO3 (21-25) mmol/L ABG Total CO2 (19-24) mmol/L ABG O2 Saturation (94-97) % BUN (9-20) mg/dL Creatinine (0.66-1.25) mg/dL Glucose (74-99) mg/dL POC Glucose (mg/dL) 125 H 153 H 172 H (75-99) mg/dL Total Protein (6.3-8.2) g/dL Albumin (3.5-5.0) g/dL 12/15/20 12/16/20 12/16/20 Range/Units 23:43 03:52 04:34 WBC 15.8 H (3.8-10.6) k/uL Hct 38.6 L (39.0-53.0) % Neutrophils # 13.7 H (1.3-7.7) k/uL Lymphocytes # 0.5 L (1.0-4.8) k/uL Monocytes # 1.1 H (0-1.0) k/uL ABG pH (7.35-7.45) ABG pO2 (83-108) mmHg ABG HCO3 (21-25) mmol/L ABG Total CO2 (19-24) mmol/L ABG O2 Saturation (94-97) % BUN (9-20) mg/dL Creatinine (0.66-1.25) mg/dL Glucose (74-99) mg/dL POC Glucose (mg/dL) 172 H 169 H (75-99) mg/dL Total Protein (6.3-8.2) g/dL Albumin (3.5-5.0) g/dL 12/16/20 12/16/20 12/16/20 Range/Units 04:34 05:38 07:46 WBC (3.8-10.6) k/uL Hct (39.0-53.0) % Neutrophils # (1.3-7.7) k/uL Lymphocytes # (1.0-4.8) k/uL Monocytes # (0-1.0) k/uL ABG pH 7.48 H (7.35-7.45) ABG pO2 62 L (83-108) mmHg ABG HCO3 31 H (21-25) mmol/L ABG Total CO2 32 H (19-24) mmol/L ABG O2 Saturation 91.0 L (94-97) % BUN 120 H* (9-20) mg/dL Creatinine 2.13 H (0.66-1.25) mg/dL Glucose 159 H (74-99) mg/dL POC Glucose (mg/dL) 151 H (75-99) mg/dL Total Protein 5.2 L (6.3-8.2) g/dL Albumin 2.8 L (3.5-5.0) g/dL Assessment and Plan Assessment: - septic shock: likely due to secondary bacterial pneumonia, patient's (a positive for E. coli which is ESBL E. coli patient is presently on meropenem. Shock improved patient is off pressor support as mentioned above patient is on ventilatory support. Patient most probably has a post Covid bacterial pneumonia. COVID-19 PCR is negative on this hospitalization, pulmonary and infectious disease are following the patient. -Acute hypoxic respiratory failure secondary to septic shock patient is presently not on norepinephrine -Hyperkalemia secondary to acute renal failure. Improved now hemodialysis is being held -Acute renal failure secondary to acute tubular necrosis from septic shock, started on hemodialysis, urine output is improving. off HD now. -Volume overload secondary to renal failure , patient is urinating now hemodialysis is being held patient volume status did improve compared to yesterday -elevated d-dimer secondary to pneumonia . -Acute on chronic hypoxic respiratory failure secondary to pneumonia. -History of asbestosis -Chronic kidney disease stage II to 3. Probable diabetic nephropathy --History of DVT in the past -Type 2 diabetes mellitus: Well controlled, continue with present regimen of long-acting insulin and short-acting insulin every 6 hours. -Hypertension -Sleep apnea -Diabetic peripheral neuropathy -History of renal mass. Status post nephrectomy in 2019. -DVT prophylaxis with subcutaneous heparin Time with Patient: Greater than 30
--- NOTE | 2020-12-18 00:29 | P.PN ---
Subjective Progress Note Date: 12/17/20 Principal diagnosis: secondary bacterial pneumonia and he was recently discharged after he was treated for Covid 19 . Patient is a pleasant 70-year-old male came in with the complaints of shortness of breath on 4 L of oxygen and oxygen saturation is going down to 78%. Patient is comparing of cough with yellowish sputum production. Patient was having high-grade fevers patient denied any dysuria patient denied nausea vomiting. Patient was discharged from the hospital after 3 week treatment for Covid 19 patient was discharged earlier this month. Patient came back positive again on of this month patient did receive both Covid vaccines. Patient's creatinine at the time of discharge is around 1.3 presently around 1.3. Patient is bit hyponatremic. Patient at a chest x-ray which is showing bilateral infiltrates consistent with Covid 19, although infiltrates are mildly better compared to the previous x-rays. 12/05/2020 Patient continues to have fevers is pretty status appears to have worsened a bit and patient is an 5 L of oxygen is still bit hypoxic and patient is in mild respiratory distress. Patient is being treated for secondary bacterial pneumonia. Repeat Covid 19 PCR is negative now. Patient blood sugars are well controlled. Dec 09 2020 Patient respiratory status worsened patient went into septic shock was subsequently transferred to intensive care unit with sputum cultures are showing ESBL E. coli patient was started on meropenem. Patient's ABGs consistent with the acidosis and both hypoxic as well as hypercapnic respiratory failure patient is presently on ventilator support. Assist control ventilation with PEEP of 10 have out of 90% set up respiratory rate of around 20 and tidal volume of 550. Patient is also numb nor- epinephrine. Patient is in septic shock. has very minimal urine output patient appears to have acute to the necrosis and patient has elevated creatinine of 2.15. Patient's potassium is elevated to 6.4 received Late has come down to 5.8. Patient is on the propofol sedation patient is also receiving systemic steroids. Atenolol and the Norvasc will be discontinued 12/10/2020 Patient remains on ventilator support with set up respiratory to for 30, tidal volume of 550, PEEP of 10 and FiO2 of 70% patient was on FiO2 of 100% yesterday. Patient remains on the propofol and Nimbex. Patient is off the levo fed. Remains on meropenem since the December 08. 12/11/2020 Patient remains acidotic with hypercapnia, respiratory is doses. Patient remains on the same and settings as yesterday. Patient is hypokalemic nephrology is managing this. Patient creatinine remained stable at 2.2. Patient's blood sugars are high will add short-acting insulin every 6 hours patient is receiving OG tube feedings, Nepro. Patient is back on norepinephrine. His leukocytosis although can you to improve. 12/12/2020 Visit acidosis improved patient remains in the same symptoms when settings as yesterday. Patient was started on hemodialysis because of persistent hyperkalemia volume overload poor urine output. Patient chest x-ray showing pulmonary edema patient has extensive anasarca. Patient is presently not on norepinephrine. Patient is on IV Lasix drip. 12/13/2020 and patient appears to have improvement in overall clinical condition patient had hemodialysis with removal of around 2.5 L today patient started urinating again. Patient has good urine output today. Patient still has peripheral edema patient FiO2 requirements have come down and patient is presently on 60% FiO2 did patient acidosis improved and pH is close to normal Review of systems: Unable to obtain due to his clinical condition. Potassium is 5.5. 12/14/2020 Patient remains intubated patient is presently on 45% FiO2. Patient is urinating well around 200 mL per hour patient volume status improved respiratory status improved 18 is improving patient hemodialysis is on hold is on IV Lasix drip. Patient is presently not on pressor support. Chest x-ray still showing diffuse bilateral infiltrates without any significant change white blood cell count improved to 11,000. Patient had partial nephrectomy in the past for carcinoma. Urology is following the patient because of new mass in the kidney 12/15/2020 Patient is presently on FiO2 of 50% which is up from yesterday his overall anasarca is better lungs diminished on exam. Patient is both on propofol and f entanyl for sedation remains on ventilator support has good urine output continue to hold hemodialysis. 12/16/2020 Patient is in the MICU. Currently on mechanical ventilator and sedated. FiO2 40% today. Patient has been afebrile. Urine output is adequate. Currently being continued Lasix drip due to anasarca.. Creatinine level is 2.13 today. Nephrology and pulmonary is on board. Laboratory data showed WBC 15.8, hemoglobin 14.8 and lymphocytes 0.5 BUN 120 and creatinine 2.13. Antibiotics in the form of meropenem. Continue IV steroids and updrafts.. Chest x-ray showed chronic parenchymal changes and cardiomegaly with persistent bilateral multifocal and confluent opacities consistent with COVID-19 infection. 12/17/2020 Patient is currently in MICU and remained mechanical ventilator. Assist control with FiO2 50% and PEEP of 8. Patient is being continued IV Lasix and antibiotics in the form of meropenem. Sputum cultures grew Anamaria albicans. Patient was started on Eraxis as per ID recommendations. Otherwise laboratory showed WBC 16.7, hemoglobin 13.6 and platelets 245 neutrophils 14.0 BUN 129 and creatinine 1.84. Patient does have good urine output. Renal function is improving. Chest x-ray showed chronic parenchymal changes and cardiomegaly with persistent bilateral multifocal and confluent opacities consistent with COVID-19 infection. Current medications reviewed. All inpatient medications were reviewed and appropriate changes in these medications as dictated in the interval history and assessment and plan. Objective - Vital Signs Vital signs: Vital Signs Temp 98.6 F 12/17/20 16:00 Pulse 90 12/17/20 19:00 Resp 18 12/17/20 19:00 BP 140/67 12/17/20 19:00 Pulse Ox 95 12/17/20 19:00 Intake & Output 12/17/20 12/17/20 12/18/20 06:59 18:59 06:59 Intake Total 841 794.196 50 Output Total 2625 2250 300 Balance -1784 -1455.804 -250 Intake: IV 276 261 20 Sodium Chloride 0.9% 1, 240 240 20 000 ml @ 20 mls/hr IV . Q24H [facility] Rx#:[id number] pressure bag 36 21 Intake, IV Titration 100 143.196 Amount propofoL 1,000 mg In 100 143.196 Empty Bag 1 bag @ Titrate IV .Q0M [facility] Rx#: [id number] Tube Feeding 420 360 30 Other 45 30 Output: Urine 2625 2250 300 Other: Voiding Method Indwelling Catheter Indwelling Catheter ABP, PAP, CO, CI - Last Documented Arterial Blood Pressure 124/55 - Exam PHYSICAL EXAMINATION: GENERAL: Patient is intubated sedated HEENT: Pupils are round and equally reacting to light. EOMI. No scleral icterus. No conjunctival pallor. Normocephalic, atraumatic. No pharyngeal erythema. No thyromegaly. CARDIOVASCULAR: S1 and S2 present. No murmurs, rubs, or gallops. PULMONARY: Sounds and diminished air entry into bilateral lung tavarez ABDOMEN: Soft, nontender, nondistended, normoactive bowel sounds. No palpable organomegaly. MUSCULOSKELETAL: No joint swelling or deformity. EXTREMITIES: No cyanosis, clubbing, or pedal edema. NEUROLOGICAL: Sedated. SKIN: No rashes. - Labs CBC & Chem 7: 12/17/20 03:51 12/17/20 03:51 Labs: Abnormal Lab Results - Last 24 Hours (Table) 12/16/20 12/17/20 12/17/20 Range/Units 23:32 03:51 03:51 WBC 16.7 H (3.8-10.6) k/uL Neutrophils # (Manual) 14.00 H (1.3-7.7) k/uL Lymphocytes # (Manual) 0.33 L (1.0-4.8) k/uL Metamyelocytes # (Man) 1.17 H (0) k/uL Myelocytes # (Manual) 0.50 H (0) k/uL ABG pH (7.35-7.45) ABG HCO3 (21-25) mmol/L ABG Total CO2 (19-24) mmol/L Carbon Dioxide 32 H (22-30) mmol/L BUN 129 H* (9-20) mg/dL Creatinine 1.84 H (0.66-1.25) mg/dL Glucose 195 H (74-99) mg/dL POC Glucose (mg/dL) 202 H (75-99) mg/dL Total Protein 5.8 L (6.3-8.2) g/dL Albumin 3.0 L (3.5-5.0) g/dL 12/17/20 12/17/20 12/17/20 Range/Units 04:26 05:20 09:10 WBC (3.8-10.6) k/uL Neutrophils # (Manual) (1.3-7.7) k/uL Lymphocytes # (Manual) (1.0-4.8) k/uL Metamyelocytes # (Man) (0) k/uL Myelocytes # (Manual) (0) k/uL ABG pH 7.51 H (7.35-7.45) ABG HCO3 33 H (21-25) mmol/L ABG Total CO2 34 H (19-24) mmol/L Carbon Dioxide (22-30) mmol/L BUN (9-20) mg/dL Creatinine (0.66-1.25) mg/dL Glucose (74-99) mg/dL POC Glucose (mg/dL) 187 H 176 H (75-99) mg/dL Total Protein (6.3-8.2) g/dL Albumin (3.5-5.0) g/dL 12/17/20 12/17/20 12/17/20 Range/Units 11:44 15:55 20:12 WBC (3.8-10.6) k/uL Neutrophils # (Manual) (1.3-7.7) k/uL Lymphocytes # (Manual) (1.0-4.8) k/uL Metamyelocytes # (Man) (0) k/uL Myelocytes # (Manual) (0) k/uL ABG pH (7.35-7.45) ABG HCO3 (21-25) mmol/L ABG Total CO2 (19-24) mmol/L Carbon Dioxide (22-30) mmol/L BUN (9-20) mg/dL Creatinine (0.66-1.25) mg/dL Glucose (74-99) mg/dL POC Glucose (mg/dL) 176 H 159 H 206 H (75-99) mg/dL Total Protein (6.3-8.2) g/dL Albumin (3.5-5.0) g/dL Assessment and Plan Assessment: - septic shock: likely due to secondary bacterial pneumonia, patient's (a positive for E. coli which is ESBL E. coli patient is presently on meropenem. Shock improved patient is off pressor support as mentioned above patient is on ventilatory support. Patient most probably has a post Covid bacterial pneumonia. COVID-19 PCR is negative on this hospitalization, pulmonary and infectious disease are following the patient. -Acute hypoxic respiratory failure secondary to septic shock patient is presently not on norepinephrine -Hyperkalemia secondary to acute renal failure. Improved now hemodialysis is being held -Acute renal failure secondary to acute tubular necrosis from septic shock, started on hemodialysis, urine output is improving. off HD now. -Volume overload secondary to renal failure , patient is urinating now hemodialysis is being held patient volume status did improve compared to yesterday -elevated d-dimer secondary to pneumonia . -Acute on chronic hypoxic respiratory failure secondary to pneumonia. -History of asbestosis -Chronic kidney disease stage II to 3. Probable diabetic nephropathy --History of DVT in the past -Type 2 diabetes mellitus: Well controlled, continue with present regimen of long-acting insulin and short-acting insulin every 6 hours. -Hypertension -Sleep apnea -Diabetic peripheral neuropathy -History of renal mass. Status post nephrectomy in 2019. -DVT prophylaxis with subcutaneous heparin Time with Patient: Greater than 30
[2020-12-18 03:43] LABS: Glucose,Whole Blood 157 mg/dL (75-99)
[2020-12-18] MEDS: INSULIN ASPART (NovoLOG) 100 UNIT/ML VIAL SQ SCH ×4 (04:06→21:09)
[2020-12-18 04:53] LABS: HCT 41.8 % (39.0-53.0); MCH 29.5 pg (25.0-35.0); MCHC 33.4 g/dL (31.0-37.0); MCV 88.2 fL (80.0-100.0); Mean Platelet Volume 7.9; Platelet Count 311 k/uL (150-450); RBC 4.74 m/uL (4.30-5.90); RDW 14.7 % (11.5-15.5); WBC 20.2 k/uL (3.8-10.6)
[2020-12-18 05:17] LABS: Potassium 4.4 mmol/L (3.5-5.1)
[2020-12-18 05:18] LABS: Calcium 9.9 mg/dL (8.4-10.2)
[2020-12-18 05:27] LABS: ABG Base Excess 13.5 mmol/L; ABG HCO3 37 mmol/L (21-25); ABG Oxygen Saturation 96.8 % (94-97); ABG PCO2 49 mmHg (35-45); ABG PH 7.48 (7.35-7.45); ABG PO2 91 mmHg (83-108); ABG TCO2 39 mmol/L (19-24); Allen Test Performed? Yes
[2020-12-18] MEDS: CISATRACURIUM 200 MG in SODIUM CHLORIDE 0.9% 180 ML IV SCH (06:30)
[2020-12-18] MEDS: SYMBICORT 160-4.5 MCG INHALER INHALATION SCH ×2 (07:45→21:46)
[2020-12-18] MEDS: ALBUTEROL HFA INHALER INHALATION PRN ×4 (07:45→21:46)
--- NOTE | 2020-12-18 09:58 | XR ---
EXAMINATION TYPE: XR chest 1V portable DATE OF EXAM: 12/18/2020 COMPARISON: 12/17/2020 INDICATION: Tube placement TECHNIQUE: Single frontal view of the chest is obtained. Patient is rotated to the right FINDINGS: The heart size is enlarged. The pulmonary vasculature is normal. Mild bilateral infiltrates are present in the lung bases. This may extend along the lateral margins. Findings are nonspecific. Small pleural effusions may be present. Right central venous catheter tip is within the proximal right atrium. Endotracheal tube tip is above the chrissy. Nasogastric tube appears to lie within the left upper quadrant of the abdomen IMPRESSION: 1. Nonspecific peripheral lung infiltrates. Stable. 2. Minimal bilateral pleural effusions may be present. 3. Multiple lines and catheters discussed above.
--- NOTE | 2020-12-18 10:10 | P.PN ---
Subjective Patient is seen in follow-up for acute kidney injury. Maintained on IV Lasix. Nonoliguric. Creatinine trending down. Intubated. Receiving tube feeding. Hemodynamically stable. Vital signs are stable. HEENT: Intubated. LUNGS: Breath sounds decreased. HEART: Rate and Rhythm are regular. ABDOMEN: Soft, no distention. EXTREMITITES: 1+ edema. Objective - Vital Signs Vital signs: Vital Signs Temp 98.1 F 12/18/20 08:00 Pulse 82 12/18/20 10:00 Resp 22 12/18/20 10:00 BP 136/99 12/18/20 10:00 Pulse Ox 95 12/18/20 10:00 Intake & Output 12/17/20 12/18/20 12/18/20 18:59 06:59 18:59 Intake Total 794.196 840.887 90 Output Total 2250 2650 255 Balance -1455.804 -1809.113 -165 Intake: IV 261 240 60 Sodium Chloride 0.9% 1, 240 240 60 000 ml @ 20 mls/hr IV . Q24H [facility] Rx#:[id number] pressure bag 21 Intake, IV Titration 143.196 150.887 Amount propofoL 1,000 mg In 143.196 150.887 Empty Bag 1 bag @ Titrate IV .Q0M [facility] Rx#: [id number] Tube Feeding 360 360 30 Other 30 90 Output: Urine 2250 2650 255 Other: Voiding Method Indwelling Catheter Indwelling Catheter Indwelling Catheter ABP, PAP, CO, CI - Last Documented Arterial Blood Pressure 124/55 - Labs CBC & Chem 7: 12/18/20 03:59 12/18/20 03:59 Labs: Abnormal Lab Results - Last 24 Hours (Table) 12/17/20 12/17/20 12/17/20 Range/Units 11:44 15:55 20:12 WBC (3.8-10.6) k/uL ABG pH (7.35-7.45) ABG pCO2 (35-45) mmHg ABG HCO3 (21-25) mmol/L ABG Total CO2 (19-24) mmol/L Carbon Dioxide (22-30) mmol/L BUN (9-20) mg/dL Creatinine (0.66-1.25) mg/dL Glucose (74-99) mg/dL POC Glucose (mg/dL) 176 H 159 H 206 H (75-99) mg/dL 12/17/20 12/18/20 12/18/20 Range/Units 23:18 03:42 03:59 WBC 20.2 H (3.8-10.6) k/uL ABG pH (7.35-7.45) ABG pCO2 (35-45) mmHg ABG HCO3 (21-25) mmol/L ABG Total CO2 (19-24) mmol/L Carbon Dioxide (22-30) mmol/L BUN (9-20) mg/dL Creatinine (0.66-1.25) mg/dL Glucose (74-99) mg/dL POC Glucose (mg/dL) 196 H 157 H (75-99) mg/dL 12/18/20 12/18/20 Range/Units 03:59 05:19 WBC (3.8-10.6) k/uL ABG pH 7.48 H (7.35-7.45) ABG pCO2 49 H (35-45) mmHg ABG HCO3 37 H (21-25) mmol/L ABG Total CO2 39 H (19-24) mmol/L Carbon Dioxide 35 H (22-30) mmol/L BUN 128 H* (9-20) mg/dL Creatinine 1.78 H (0.66-1.25) mg/dL Glucose 138 H (74-99) mg/dL POC Glucose (mg/dL) (75-99) mg/dL Assessment and Plan Plan: Assessment: 1. Acute kidney injury secondary to ATN secondary to sepsis. Status post hemodialysis this admission. Renal function improving. Nonoliguric. 2. Disproportionally elevated BUN secondary to acute kidney injury and steroids. 3. Volume overload. Improving with diuresis. 4. Acute hypoxic respiratory failure secondary to pneumonia and fluid overload. 5. Pneumonia maintained on antibiotics. 6. History of renal carcinoma status post right partial nephrectomy in November 2019. Urology following. Plan: Maintain IV Lasix - decrease to 40 mg twice a day. Avoid nephrotoxins. Maintain tube feeding. Wean FiO2. Continue to monitor renal function and urine output.
[2020-12-18] MEDS: GABAPENTIN 300 MG CAP PO SCH (11:04)
[2020-12-18] MEDS: atenoloL 25 MG TAB PO SCH (11:05)
[2020-12-18] MEDS: ENOXAPARIN 30 MG/0.3 ML SYRINGE SQ SCH ×2 (11:05→21:08)
[2020-12-18] MEDS: ZINC SULFATE 220 MG CAP PO SCH (11:05)
[2020-12-18] MEDS: CHLORHEXIDINE GLUCONATE 15 ML CUP MUCOUS MEM SCH ×2 (11:05→21:10)
[2020-12-18] MEDS: CHOLECALCIFEROL 25 MCG (1000 IU) TABLET PO SCH (11:05)
[2020-12-18] MEDS: SENNOSIDES 8.6 MG TAB PO SCH ×2 (11:06→21:10)
[2020-12-18] MEDS: PANTOPRAZOLE 40 MG/10 ML VIAL IVP SCH (11:06)
[2020-12-18] MEDS: MEROPENEM 1 GM in SODIUM CHLORIDE 0.9% 100 ML IVPB SCH ×2 (11:06→21:08)
[2020-12-18] MEDS: methylPREDNISolone SOD SUCCI 40 MG/ML 1 ML VIAL IV SCH ×2 (11:06→21:09)
[2020-12-18] MEDS: NOREPINEPHRINE 4 MG in SODIUM CHLORIDE 0.9% 250 ML IV SCH ×2 (11:07→20:37)
[2020-12-18 11:43] LABS: Glucose,Whole Blood 88 mg/dL (75-99)
[2020-12-18 16:02] LABS: Glucose,Whole Blood 128 mg/dL (75-99)
--- NOTE | 2020-12-18 19:06 | P.PN ---
Subjective Progress Note Date: 12/18/20 (Critical care time 35 minutes) Principal diagnosis: left renal mass Acute kidney injury Fluid overload Acute on chronic hypoxic respiratory failure with worsening status septic shock Bilateral gram-negative pneumonia due to ESBL E. coli Acute kidney injury Hyperkalemia Uncontrolled diabetes and hyperglycemia Pulmonary fibrosis due to prior extensive COVID-19 pneumonia Sepsis and fever of unknown region Generalized weakness and medical debility Asbestosis lung Advanced diabetes mellitus with hyperglycemia Chronic kidney disease stage III 12/18/2020, patient seen eval examined during the rounds labs reviewed medications reviewed care plan discussed industry status remains marginal but stable, remains on 50% oxygen and 5 of PEEP, saturation is 94%, patient has been on rate of 20 tidal volume of 500, patient remains on low-dose propofol, discussed with staff at length plan is to taper and DC the propofol given a sedation holiday if tolerated well and arousable will do weaning trials tomorrow, chest x-ray continued to show bilateral partial infiltrates and small effusion stable lines and tubes, arterial blood gas stable with pH of 7.48 pCO2 49 and pO2 91, white cell count is up to 20,000, BUN/creatinine 128/ 1.78 patient has been started on IV antifungal, 12/17/2020, patient seen eval examined during the rounds labs reviewed medications reviewed care plan discussed, respiratory status slowly improving, FiO2 down to 50% saturation is 94%, PEEP is down to 8, patient remains on propofol 20 mics, arterial blood gas indicated above respiratory and metabolic alkalosis, patient has been having adequate urine output, Lasix drip has been discontinued, remains on broad-spectrum antibiotics and IV fluids, bland overall today is to taper down the sedation give sedation holidays decrease the respiratory rate to 20 and decrease the PEEP to 5, will assess mental status once awake slow weaning to be continued, WBC count 16,700, hemoglobin and hematocrit stable, arterial blood gas revealed pH is 7.5 pCO2 42 pO2 of 83, BUN/creatinine remains 129 and 1.84 overall remains stable in last 48 hours 12/16/2020, patient seen and evaluated examined, sedated with propofol drip and fentanyl drip, able to titrate oxygen down to 40% however could not drop to keep less than 8, oxygen saturation remains marginal at 88-90%, urine output is adequate up to 300 mL/h, remains on Lasix strip, generalized anasarca is present, off of that hemodialysis for last 48 hours patient appears to be in diuretic phase of acute kidney injury discussed with the staff at length, need to improve oxygen prior to lowering down the PEEP, continue auto diuresis with Lasix strip, however we'll titrate sedation down, will DC the fentanyl drip, continue propofol, fentanyl will be used as needed, ventilator setting remains stable currently on assist control rate of 30, tidal volume 550, PEEP of 8, oxygen is 40%, labs reviewed white cell count 15,800, hemoglobin and hematocrit is stable 13 and 38, arterial blood gas revealed pH of 7.48 pCO2 42 pO2 62, a line is out, BUN/creatinine is 120 and 2.13, 12/14/2020, patient seen eval examined during the rounds overall respiratory status remains marginal patient is a however down to 50% oxygen saturation is 93%, he is sedated he is off of medical paralysis, currently is on propofol and fentanyl drip, vent setting is stable remains on assist control rate of 30 tidal volume 550, PEEP is 10 FiO2 is 50%, patient had a started making urine he is hemodialysis 2 [id number] currently is on 10 mg Lasix strip, labs and radiographic studies reviewed, x-ray shows diffuse bilateral infiltrate and no significant change, arterial blood gas significantly improved pH is 7.35 pCO2 47 pO2 87, white cell count down to 11,000, 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 new mass has been noted, urology has been following pending further evaluation until he stabilized 12/13/2020, patient seen eval examined during the rounds labs reviewed medications reviewed care plan discussed, at industry status the remains marginal 70% oxygen, patient remains on PEEP of 10, tidal volume is 550, rate is 30, ABG reviewed this morning slightly better, patient remains on Nimbex along with fentanyl and propofol, can taper and DC the Nimbex drip, patient had the first episode of hemodialysis yesterday over 2 L I've been removed however patient did require vasopressors during dialysis, currently undergoing second course of hemodialysis again back on levo fed postdialysis yesterday came off of U for drip without any problem issues, patient had ultrasound done which showed left-sided renal mass versus bowel shadow urology has been consulted, patient remains on broad-spectrum antibiotics labs reviewed x-ray reviewed care plan discussed with the staff at length 12/12/2020, patient seen eval examined during the rounds labs reviewed medications reviewed patient remains sedated and medically paralyzed, patient is on the propofol which is down to 40 mics, NIMBEX AND FENTANYL DRIP, HEMODYNAMIC STATUS IS STABLE OFF OF VASOPRESSORS, BLOOD PRESSURE STABLE, respiratory status remains very marginal along with fluid overload and anasarca attempted Lasix strip patient did not respond very well, patient remains on assist control with a rate of 30 tidal volume of 550, 10 of PEEP oxygen is 70%, unable to wean it down saturations marginal 91% only, peak airway pressure up into high 30s now persistent with poor compliance of the chest also component of fluid overload, labs reviewed white cell count remains stable 13,000, hemoglobin stable platelet count is 206,000, ABG revealed pH of 7.21, pCO2 50, pO2 72, sodium 138 production continued to be up to 6.3, BUN and creatinine increase to 96 and 2.66, 12/11/2020, patient seen eval reexamined during the rounds labs reviewed medications reviewed care plan discussed, respiratory status the remains marginal however patient started desaturating earlier this morning has a significant amount of respiratory and metabolic acidosis as well, patient has been +3 L in the last 24 hours, discussed with the renal service about increasing diuretics or possibly starting on bicarb drip, renal function however remains stable, patient is sedated and medically paralyzed with fentanyl propofol Nimbex, discussed with staff about lowering down propofol drip to 30-40 mics, chest x-ray from today reviewed consistent with fluid overload fluid appears to be tracking into right major fissure, overall not much change from previous x-ray, patient remains on ventilator setting current setting includes assist control rate of 30, tidal volume of 550, FiO2 increase from 60% to 70%, sugars elevated have been on sliding scale, patient is tolerating tube feed fairly well, patient also noted to have progressive developing anasarca, noted labs white cell count continue to go down to 13,000, arterial blood gas continued magnificent respiratory and metabolic acidosis, significant component of diffusion impairment, hyperkalemia with potassium was 6.1, 12/10/2020, patient seen eval examined in the ICU, he remains intubated and medically sedated and paralyzed on the propofol, name backs and fentanyl drip, levo fed is now came off after fluid boluses, patient has significant metabolic acidosis due to multifactorial processes including acute kidney injury pneumonia and the vasopressors, patient has been on bicarb drip, being adjusted, to feed is in process, hemodynamic status is slightly better, FiO2 is started down to 70%, underwent setting includes assist control rate of 30 to volume of 550 10 of PEEP, arterial blood gases reviewed pH 7.14 pCO2 51 patient was given 1 amp of bicarb with the bicarb drip white cell count is down to 18,800, hemodynamic status slightly stable than before, overall plan is to continue to come down oxygen monitor renal functions closely monitor hyperkalemia, repeat chemistry pending for later on today 12/09/2020, patient seen eval examined continued to have marginal hemodynamics and respiratory status, patient sedated medically paralyzed with Nimbex drip, propofol, fentanyl drip, arterial blood gases done this morning reveal severe metabolic and respiratory acidosis ventilator have been adjusted now new ventricular setting includes assist control rate of 30 to volume of 550 PEEP remains 10 oxygen is down to 90%, patient now on levo fed, we'll try to taper down the levo fed by giving fluids S patient is volume depleted as well and lowering down propofol aim to bring down propofol to 30-40 mics in next 24 hours, fluid will be given 100 mL an hour continuous with fluid boluses boluses of 500 mL/h for 2 hours, patient remains on meropenem, potassium noted to be elevated to 6.4, BUN/creatinine slightly up to 55 1.8, we'll give Kayexalate 2 doses, repeat BMP later on today 12/08/2020, patient seen eval examined during the rounds labs reviewed medications reviewed, critical care time spent 45 minutes, patient developed progressive increased respiratory distress was transferred to the ICU was intubated for respiratory distress, patient has dense bilateral infiltrate, sputum is positive for gram-negative rods, patient is hypotensive requiring fluid boluses likely will required vasopressors as well, for agitation has been placed on propofol for now has been on 75 need to be paralyzed, patient has been also started on fentanyl drip, patient has been on Cefepime for gram-negative pneumonia, final sputum culture have been pending, patient currently on full ventilator support with 100% oxygen and 10 of PEEP, rate is 26, breathing about 28-30, volume is 500, peak pressure in low 30s, blood pressure after the boluses 100/40, respiratory rate is 32, heart rate 81 temperature sats are 91%, 1 cell count is up to 23,000 hemoglobin is stable 14, d-dimer continue to go up 3.97, arterial blood gases revealed pH of 7.24 pCO2 58-year-old O2 of 80 8/2 an hour after on above ventilator setting, potentially was 5.5, BUN/creatinine 45 1.37, patient has a elevated inflammatory parameters including ferritin in 631, LDH is 1658 C-reactive protein 15.9 patient will need a central line, we will sedate and medically paralyzed, will start tube feed, monitor labs closely, patient will be started on Lovenox 30 mg subcu every 12 12/06/2020, patient seen eval reexamined labs reviewed medications reviewed care plan discussed, respiratory status remains marginal denies any chest pain, however more hypoxic currently on 15 L high flow oxygen, remains afebrile hemodynamically stable, oxygen saturation is 93%, check urgent pro-calcitonin as well as d-dimer, if d-dimer is elevated consider doing a VQ scan and duplex ultrasound lower extremity, we will also check an echocardiogram This is a 70-year-old male well-known to me patient has a severe diabetes mellitus and chronic kidney disease as baseline, 2 months ago patient was admitted to hospital with acute COVID-19 pneumonia and respiratory failure patient was on 100% oxygen and BiPAP but however successfully tapered down up to 4 L nasal cannula was discharged home patient did not came back for follow-up, for the last few days has been spiking fever more short of breath oxygen in increase to 5 L nasal cannula came into the hospital for further evaluation ches t x-ray not much change his code went testing is negative, patient has been vaccinated for COVID-19 his most recent chest x-ray continued to show cardiomegaly chronic changes, no particular significant change from prior x- rays, patient does have a history of asbestosis lung however Objective - Vital Signs Vital signs: Vital Signs Temp 97.3 F L 12/18/20 16:00 Pulse 99 12/18/20 18:00 Resp 19 12/18/20 18:00 BP 163/79 12/18/20 18:00 Pulse Ox 94 L 12/18/20 18:00 Intake & Output 12/18/20 12/18/20 12/19/20 06:59 18:59 06:59 Intake Total 840.887 370 Output Total 2650 825 Balance -1809.113 -455 Weight 115.666 kg Intake: IV 240 240 Sodium Chloride 0.9% 1, 240 240 000 ml @ 20 mls/hr IV . Q24H [facility] Rx#:[id number] Intake, IV Titration 150.887 100 Amount propofoL 1,000 mg In 150.887 100 Empty Bag 1 bag @ Titrate IV .Q0M [facility] Rx#: [id number] Tube Feeding 360 30 Other 90 Output: Urine 2650 825 Other: Voiding Method Indwelling Catheter Indwelling Catheter ABP, PAP, CO, CI - Last Documented Arterial Blood Pressure 124/55 - Exam - Constitutional General appearance: sedated on full ventilator support - Neck Neck: normal ROM Carotids: bilateral: upstroke normal Thyroid: bilateral: normal size - Respiratory Respiratory: bilateral: diminished, rales - Cardiovascular Rhythm: regular Heart sounds: normal: S1, S2 - Gastrointestinal General gastrointestinal: soft - Integumentary Integumentary: normal turgor - Neurologic Neurologic: CNII-XII intact - Musculoskeletal Musculoskeletal: gait normal, generalized weakness, strength equal bilaterally - Psychiatric Psychiatric: sedated on full ventilator support - Labs CBC & Chem 7: 12/18/20 03:59 12/18/20 03:59 Labs: Abnormal Lab Results - Last 24 Hours (Table) 12/17/20 12/17/20 12/18/20 Range/Units 20:12 23:18 03:42 WBC (3.8-10.6) k/uL ABG pH (7.35-7.45) ABG pCO2 (35-45) mmHg ABG HCO3 (21-25) mmol/L ABG Total CO2 (19-24) mmol/L Carbon Dioxide (22-30) mmol/L BUN (9-20) mg/dL Creatinine (0.66-1.25) mg/dL Glucose (74-99) mg/dL POC Glucose (mg/dL) 206 H 196 H 157 H (75-99) mg/dL 12/18/20 12/18/20 12/18/20 Range/Units 03:59 03:59 05:19 WBC 20.2 H (3.8-10.6) k/uL ABG pH 7.48 H (7.35-7.45) ABG pCO2 49 H (35-45) mmHg ABG HCO3 37 H (21-25) mmol/L ABG Total CO2 39 H (19-24) mmol/L Carbon Dioxide 35 H (22-30) mmol/L BUN 128 H* (9-20) mg/dL Creatinine 1.78 H (0.66-1.25) mg/dL Glucose 138 H (74-99) mg/dL POC Glucose (mg/dL) (75-99) mg/dL 12/18/20 Range/Units 16:01 WBC (3.8-10.6) k/uL ABG pH (7.35-7.45) ABG pCO2 (35-45) mmHg ABG HCO3 (21-25) mmol/L ABG Total CO2 (19-24) mmol/L Carbon Dioxide (22-30) mmol/L BUN (9-20) mg/dL Creatinine (0.66-1.25) mg/dL Glucose (74-99) mg/dL POC Glucose (mg/dL) 128 H (75-99) mg/dL Assessment and Plan Assessment: Acute respiratory failure with difficulty to wean due to marginal oxygenation, withdraws the sedation ventilator adjustment acute kidney injury with fluid overload and anasarca, currently on diuretic phase left renal mass with history of renal cell clear carcinoma, status post partial elective nephrectomy in 2019 gram-negative pneumonia due to ESBL E. coli Severe sepsis and septic shock due to gram-negative pneumonia Acute on chronic hypoxic and hypercapnic respiratory failure Acute lung injury and ARDS Developing progressive right-sided pleural effusion Acute kidney injury hyperkalemia Metabolic and respiratory acidosis Uncontrolled diabetes Pulmonary fibrosis due to extensive recentCOVID-19 pneumonia Asbestosis lung pulmonary nodule Advanced diabetes mellitus with hyperglycemia Chronic kidney disease stage III Plan: Continue auto diuresis with Lasix IV Withdraw sedation assess mental status ventilator adjustment Follow renal functions closely Continue broad-spectrum antibiotics Ventilator adjustment as per orders as above patient status post second course of hemodialysis urine output has improved now will titrate oxygen down to 40% subsequently will bring down the PEEP as tolerated, continue weaning as tolerated Urology evaluation Patient is off of Nimbex drip ventilator adjustment status post central line Lovenox 30 mg subcu every 12 tube feed as per protocol Labs chest x-ray and ABG in the morning Off of Vasopressors Follow-up on [place] cultures including sputum urine and blood continue antibiotics IV steroids evaluation of pulmonary nodule once stabilized Time with Patient: Greater than 30
--- NOTE | 2020-12-18 19:12 | PN ---
PROGRESS NOTE DATE OF SERVICE: 12/18/2020 REASON FOR FOLLOWUP: Pneumonia. INTERVAL HISTORY: The patient remains to be afebrile. The patient is hemodynamically stable, not on pressor support. The patient's FiO2 is currently stable at 50%. No significant purulent secretions in the ET and no diarrhea has been reported. Dialysis has been put on hold. PHYSICAL EXAMINATION: VITAL SIGNS: Blood pressure 136/99, pulse of 82, temperature 98.1, he is 95% on 50% FiO2. GENERAL DESCRIPTION: An elderly male lying in bed in no distress. RESPIRATORY SYSTEM: Unlabored breathing, decreased intensity of breath sounds, no wheeze. HEART: S1, S2. Regular rate and rhythm. ABDOMEN: Soft, no tenderness. EXTREMITIES: 1+ edema to the feet. LABS: Hemoglobin is 14, white count 20.2, BUN of 128, creatinine is 1.78. Sputum has been Anamaria albicans. Initial sputum was ESBL E coli. DIAGNOSTIC IMPRESSION AND PLAN: 1. Patient with acute respiratory failure which is multifactorial. Did have a component of pneumonia, likely aspiration etiology. Sputum has been ESBL E coli. The patient is currently covered with the meropenem. 2. Patient with worsening white count more likely steroid effect, as no evidence of any worsening pneumonia or other signs of infection and will monitor closely. MMODL / IJN: [id number] /
[2020-12-18 20:36] LABS: Glucose,Whole Blood 245 mg/dL (75-99)
[2020-12-18] MEDS ORDERED: ANIDULAFUNGIN 100 MG in SODIUM CHLORIDE 0.9% 100 ML IVPB SCH (21:00)
[2020-12-18] MEDS: INSULIN DETEMIR (LEVEMIR) 100 UNIT/ML SYR SQ SCH (21:09)
[2020-12-18] MEDS: FUROSEMIDE 10 MG/ML 4 ML VIAL IV SCH (21:10)
[2020-12-19 00:18] LABS: Glucose,Whole Blood 197 mg/dL (75-99)
[2020-12-19] MEDS: INSULIN ASPART (NovoLOG) 100 UNIT/ML VIAL SQ SCH ×7 (00:26→20:09)
[2020-12-19 04:19] LABS: Glucose,Whole Blood 180 mg/dL (75-99)
[2020-12-19 04:53] LABS: Basophils # (A) 0.1 k/uL (0-0.2); Basophils % (A) 0 %; Eosinophils % (A) 0 %; HCT 45.9 % (39.0-53.0); HGB 14.6 gm/dL (13.0-17.5); Lymphocytes # (A) 0.3 k/uL (1.0-4.8); Lymphocytes % (A) 1 %; MCH 28.9 pg (25.0-35.0); MCHC 31.9 g/dL (31.0-37.0); MCV 90.8 fL (80.0-100.0); Mean Platelet Volume 7.6; Monocytes # (A) 1.4 k/uL (0-1.0); Monocytes % (A) 5 %; Neutrophils # (A) 29.3 k/uL (1.3-7.7); Neutrophils % (A) 93 %; Platelet Count 300 k/uL (150-450); RBC 5.05 m/uL (4.30-5.90); WBC 31.5 k/uL (3.8-10.6)
[2020-12-19 05:04] LABS: Albumin 3.2 g/dL (3.5-5.0); Calcium 10.1 mg/dL (8.4-10.2); Potassium 4.5 mmol/L (3.5-5.1); Total Bilirubin 0.8 mg/dL (0.2-1.3); Total Protein 5.8 g/dL (6.3-8.2)
[2020-12-19 05:26] LABS: ABG Base Excess 14.5 mmol/L; ABG HCO3 38 mmol/L (21-25); ABG Oxygen Saturation 96.9 % (94-97); ABG PCO2 52 mmHg (35-45); ABG PH 7.47 (7.35-7.45); ABG PO2 93 mmHg (83-108); ABG TCO2 40 mmol/L (19-24); Allen Test Performed? Yes
[2020-12-19] MEDS: ALBUTEROL HFA INHALER INHALATION PRN ×4 (07:36→20:03)
[2020-12-19] MEDS: SYMBICORT 160-4.5 MCG INHALER INHALATION SCH ×2 (07:36→20:03)
--- NOTE | 2020-12-19 07:45 | XR ---
EXAMINATION TYPE: XR chest 1V portable DATE OF EXAM: 12/19/2020 CLINICAL HISTORY: Difficulty breathing progress study. TECHNIQUE: Single AP portable semiupright view of the chest is obtained. COMPARISON: Chest x-ray from one day earlier and older studies FINDINGS: Stable endotracheal and orogastric tubes. Stable right internal jugular central venous cat heter. There is background chronic parenchymal changes with persistent bilateral multifocal and confluent op acities. The cardiac silhouette size remains enlarged with atherosclerotic thoracic aorta. Osseous s tructures are intact. IMPRESSION: Chronic parenchymal changes and cardiomegaly with persistent bilateral multifocal and co nfluent opacities consistent with covid-19 infection. No significant change from one day earlier.
[2020-12-19] MEDS: CISATRACURIUM 200 MG in SODIUM CHLORIDE 0.9% 180 ML IV SCH (07:55)
[2020-12-19 08:20] LABS: Glucose,Whole Blood 166 mg/dL (75-99)
[2020-12-19] MEDS: SENNOSIDES 8.6 MG TAB PO SCH ×2 (09:37→20:07)
[2020-12-19] MEDS: GABAPENTIN 300 MG CAP PO SCH (09:54)
[2020-12-19] MEDS: CHLORHEXIDINE GLUCONATE 15 ML CUP MUCOUS MEM SCH ×2 (09:54→20:07)
[2020-12-19] MEDS: atenoloL 25 MG TAB PO SCH (09:54)
[2020-12-19] MEDS: ENOXAPARIN 30 MG/0.3 ML SYRINGE SQ SCH ×2 (09:55→20:08)
[2020-12-19] MEDS: ZINC SULFATE 220 MG CAP PO SCH (09:55)
[2020-12-19] MEDS: CHOLECALCIFEROL 25 MCG (1000 IU) TABLET PO SCH (09:55)
[2020-12-19] MEDS: FUROSEMIDE 10 MG/ML 4 ML VIAL IV SCH ×2 (09:55→20:07)
[2020-12-19] MEDS: PANTOPRAZOLE 40 MG/10 ML VIAL IVP SCH (09:56)
[2020-12-19] MEDS: MEROPENEM 1 GM in SODIUM CHLORIDE 0.9% 100 ML IVPB SCH (09:56)
[2020-12-19] MEDS: methylPREDNISolone SOD SUCCI 40 MG/ML 1 ML VIAL IV SCH ×2 (09:56→20:07)
--- NOTE | 2020-12-19 09:59 | P.PN ---
Subjective Patient is seen in follow-up for acute kidney injury. Maintained on IV Lasix. Nonoliguric. Creatinine trending down. Intubated. Receiving tube feeding. Hemodynamically stable. Sodium level slightly high. Vital signs are stable. HEENT: Intubated. LUNGS: Breath sounds decreased. HEART: Rate and Rhythm are regular. ABDOMEN: Soft, no distention. EXTREMITITES: 1+ edema. Objective - Vital Signs Vital signs: Vital Signs Temp 99.1 F 12/19/20 04:00 Pulse 137 H 12/19/20 09:00 Resp 28 H 12/19/20 09:00 BP 159/80 12/19/20 09:00 Pulse Ox 94 L 12/19/20 09:00 Intake & Output 12/18/20 12/19/20 12/19/20 18:59 06:59 18:59 Intake Total 470 838.943 180 Output Total 825 2245 600 Balance -355 -1406.057 -420 Weight 115.666 kg Intake: IV 240 240 60 Sodium Chloride 0.9% 1, 240 240 60 000 ml @ 20 mls/hr IV . Q24H [facility] Rx#:[id number] Intake, IV Titration 200 178.943 Amount propofoL 1,000 mg In 200 178.943 Empty Bag 1 bag @ Titrate IV .Q0M [facility] Rx#: [id number] Tube Feeding 30 330 90 Other 90 30 Output: Urine 825 2245 525 Stool 75 Other: Voiding Method Indwelling Catheter Indwelling Catheter Indwelling Catheter ABP, PAP, CO, CI - Last Documented Arterial Blood Pressure 124/55 - Labs CBC & Chem 7: 12/19/20 04:21 12/19/20 04:21 Labs: Abnormal Lab Results - Last 24 Hours (Table) 12/18/20 12/18/20 12/19/20 Range/Units 16:01 20:34 00:16 WBC (3.8-10.6) k/uL Neutrophils # (1.3-7.7) k/uL Lymphocytes # (1.0-4.8) k/uL Monocytes # (0-1.0) k/uL ABG pH (7.35-7.45) ABG pCO2 (35-45) mmHg ABG HCO3 (21-25) mmol/L ABG Total CO2 (19-24) mmol/L Sodium (137-145) mmol/L Carbon Dioxide (22-30) mmol/L BUN (9-20) mg/dL Creatinine (0.66-1.25) mg/dL Glucose (74-99) mg/dL POC Glucose (mg/dL) 128 H 245 H 197 H (75-99) mg/dL Total Protein (6.3-8.2) g/dL Albumin (3.5-5.0) g/dL 12/19/20 12/19/20 12/19/20 Range/Units 04:17 04:21 04:21 WBC 31.5 H (3.8-10.6) k/uL Neutrophils # 29.3 H (1.3-7.7) k/uL Lymphocytes # 0.3 L (1.0-4.8) k/uL Monocytes # 1.4 H (0-1.0) k/uL ABG pH (7.35-7.45) ABG pCO2 (35-45) mmHg ABG HCO3 (21-25) mmol/L ABG Total CO2 (19-24) mmol/L Sodium 146 H (137-145) mmol/L Carbon Dioxide 34 H (22-30) mmol/L BUN 123 H* (9-20) mg/dL Creatinine 1.48 H (0.66-1.25) mg/dL Glucose 189 H (74-99) mg/dL POC Glucose (mg/dL) 180 H (75-99) mg/dL Total Protein 5.8 L (6.3-8.2) g/dL Albumin 3.2 L (3.5-5.0) g/dL 12/19/20 12/19/20 Range/Units 05:20 08:19 WBC (3.8-10.6) k/uL Neutrophils # (1.3-7.7) k/uL Lymphocytes # (1.0-4.8) k/uL Monocytes # (0-1.0) k/uL ABG pH 7.47 H (7.35-7.45) ABG pCO2 52 H (35-45) mmHg ABG HCO3 38 H (21-25) mmol/L ABG Total CO2 40 H (19-24) mmol/L Sodium (137-145) mmol/L Carbon Dioxide (22-30) mmol/L BUN (9-20) mg/dL Creatinine (0.66-1.25) mg/dL Glucose (74-99) mg/dL POC Glucose (mg/dL) 166 H (75-99) mg/dL Total Protein (6.3-8.2) g/dL Albumin (3.5-5.0) g/dL Assessment and Plan Plan: Assessment: 1. Acute kidney injury secondary to ATN secondary to sepsis. Status post h emodialysis this admission. Renal function improving. Nonoliguric. 2. Disproportionally elevated BUN secondary to acute kidney injury and steroids. 3. Volume overload. Improving with diuresis. 4. Acute hypoxic respiratory failure secondary to pneumonia and fluid overload. 5. Pneumonia maintained on antibiotics. 6. History of renal carcinoma status post right partial nephrectomy in November 2019 . Urology following. 7. Hypernatremia from free water diuresis and lack of oral water intake. Plan: Maintain IV Lasix. Add free water at rate of 50 mL an hour with tube feeding. Avoid nephrotoxins. Wean FiO2. Continue to monitor renal function and urine output.
--- NOTE | 2020-12-19 10:59 | P.PN ---
Subjective Progress Note Date: 12/19/20 (Critical care 35 minutes) Principal diagnosis: left renal mass Acute kidney injury Fluid overload Acute on chronic hypoxic respiratory failure with worsening status septic shock Bilateral gram-negative pneumonia due to ESBL E. coli Acute kidney injury Hyperkalemia Uncontrolled diabetes and hyperglycemia Pulmonary fibrosis due to prior extensive COVID-19 pneumonia Sepsis and fever of unknown region Generalized weakness and medical debility Asbestosis lung Advanced diabetes mellitus with hyperglycemia Chronic kidney disease stage III 12/19/2020, patient seen eval examined during the rounds labs reviewed medications reviewed care plan discussed with the staff, attempted CPAP and pressure support trial with CPAP of 5 and pressure support of 10 and 50% oxygen, tolerated about 20 minutes, patient developed respiratory distress with tachycardia and tachypnea put back on assist control mode, patient is off of propofol, opens eyes, anxious however not following commands, patient remains on antifungal antibiotics as well as antibacterial, with IV steroids, patient back on assist control with a rate of 20 tidal volume of 500, +5 of PEEP, and 50% oxygen, adequate urine output, chest x-ray performed today continue to manifest parenchymal changes and opacities with cardiomegaly interstitial edema, white cell count is up to 31,000, arterial blood gas revealed pH of 7.47, pCO2 52, pO2 is 93, BUN/creatinine stable 123/1.48, adequate urine output has been noted, 12/18/2020, patient seen eval examined during the rounds labs reviewed medications reviewed care plan discussed industry status remains marginal but stable, remains on 50% oxygen and 5 of PEEP, saturation is 94%, patient has been on rate of 20 tidal volume of 500, patient remains on low-dose propofol, discussed with staff at length plan is to taper and DC the propofol given a sedation holiday if tolerated well and arousable will do weaning trials tomorrow, chest x-ray continued to show bilateral partial infiltrates and small effusion stable lines and tubes, arterial blood gas stable with pH of 7.48 pCO2 49 and pO2 91, white cell count is up to 20,000, BUN/creatinine 128/ 1.78 patient has been started on IV antifungal, 12/17/2020, patient seen eval examined during the rounds labs reviewed medications reviewed care plan discussed, respiratory status slowly improving, FiO2 down to 50% saturation is 94%, PEEP is down to 8, patient remains on propofol 20 mics, arterial blood gas indicated above respiratory and metabolic alkalosis, patient has been having adequate urine output, Lasix drip has been discontinued, remains on broad-spectrum antibiotics and IV fluids, bland overall today is to taper down the sedation give sedation holidays decrease the respiratory rate to 20 and decrease the PEEP to 5, will assess mental status once awake slow weaning to be continued, WBC count 16,700, hemoglobin and hematocrit stable, arterial blood gas revealed pH is 7.5 pCO2 42 pO2 of 83, BUN/creatinine remains 129 and 1.84 overall remains stable in last 48 hours 12/16/2020, patient seen and evaluated examined, sedated with propofol drip and fentanyl drip, able to titrate oxygen down to 40% however could not drop to keep less than 8, oxygen saturation remains marginal at 88-90%, urine output is adequate up to 300 mL/h, remains on Lasix strip, generalized anasarca is present, off of that hemodialysis for last 48 hours patient appears to be in diuretic phase of acute kidney injury discussed with the staff at length, need to improve oxygen prior to lowering down the PEEP, continue auto diuresis with Lasix strip, however we'll titrate sedation down, will DC the fentanyl drip, continue propofol, fentanyl will be used as needed, ventilator setting remains stable currently on assist control rate of 30, tidal volume 550, PEEP of 8, oxygen is 40%, labs reviewed white cell count 15,800, hemoglobin and hematocrit is stable 13 and 38, arterial blood gas revealed pH of 7.48 pCO2 42 pO2 62, a line is out, BUN/creatinine is 120 and 2.13, 12/14/2020, patient seen eval examined during the rounds overall respiratory status remains marginal patient is a however down to 50% oxygen saturation is 93%, he is sedated he is off of medical paralysis, currently is on propofol and fentanyl drip, vent setting is stable remains on assist control rate of 30 tidal volume 550, PEEP is 10 FiO2 is 50%, patient had a started making urine he is hemodialysis 2 [id number] currently is on 10 mg Lasix strip, labs and radiographic studies reviewed, x-ray shows diffuse bilateral infiltrate and no significant change, arterial blood gas significantly improved pH is 7.35 pCO2 47 pO2 87, white cell count down to 11,000, 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 new mass has been noted, urology has been following pending further evaluation until he stabilized 12/13/2020, patient seen eval examined during the rounds labs reviewed medications reviewed care plan discussed, at industry status the remains marginal 70% oxygen, patient remains on PEEP of 10, tidal volume is 550, rate is 30, ABG reviewed this morning slightly better, patient remains on Nimbex along w ith fentanyl and propofol, can taper and DC the Nimbex drip, patient had the first episode of hemodialysis yesterday over 2 L I've been removed however patient did require vasopressors during dialysis, currently undergoing second course of hemodialysis again back on levo fed postdialysis yesterday came off of U for drip without any problem issues, patient had ultrasound done which showed left-sided renal mass versus bowel shadow urology has been consulted, patient remains on broad-spectrum antibiotics labs reviewed x-ray reviewed care plan discussed with the staff at length 12/12/2020, patient seen eval examined during the rounds labs reviewed medications reviewed patient remains sedated and medically paralyzed, patient is on the propofol which is down to 40 mics, NIMBEX AND FENTANYL DRIP, HEMODYNAMIC STATUS IS STABLE OFF OF VASOPRESSORS, BLOOD PRESSURE STABLE, respiratory status remains very marginal along with fluid overload and anasarca attempted Lasix strip patient did not respond very well, patient remains on assist control with a rate of 30 tidal volume of 550, 10 of PEEP oxygen is 70%, unable to wean it down saturations marginal 91% only, peak airway pressure up into high 30s now persistent with poor compliance of the chest also component of fluid overload, labs reviewed white cell count remains stable 13,000, hemoglobin stable platelet count is 206,000, ABG revealed pH of 7.21, pCO2 50, pO2 72, sodium 138 production continued to be up to 6.3, BUN and creatinine increase to 96 and 2.66, 12/11/2020, patient seen eval reexamined during the rounds labs reviewed medica tions reviewed care plan discussed, respiratory status the remains marginal however patient started desaturating earlier this morning has a significant amount of respiratory and metabolic acidosis as well, patient has been +3 L in the last 24 hours, discussed with the renal service about increasing diuretics or possibly starting on bicarb drip, renal function however remains stable, patient is sedated and medically paralyzed with fentanyl propofol Nimbex, discussed with staff about lowering down propofol drip to 30-40 mics, chest x- ray from today reviewed consistent with fluid overload fluid appears to be tracking into right major fissure, overall not much change from previous x-ray, patient remains on ventilator setting current setting includes assist control rate of 30, tidal volume of 550, FiO2 increase from 60% to 70%, sugars elevated have been on sliding scale, patient is tolerating tube feed fairly well, patient also noted to have progressive developing anasarca, noted labs white cell count continue to go down to 13,000, arterial blood gas continued magnificent respiratory and metabolic acidosis, significant component of diffusion impairment, hyperkalemia with potassium was 6.1, 12/10/2020, patient seen eval examined in the ICU, he remains intubated and medically sedated and paralyzed on the propofol, name backs and fentanyl drip, levo fed is now came off after fluid boluses, patient has significant metabolic acidosis due to multifactorial processes including acute kidney injury pneumonia and the vasopressors, patient has been on bicarb drip, being adjusted, to feed is in process, hemodynamic status is slightly better, FiO2 is started down to 70%, underwent setting includes assist control rate of 30 to volume of 550 10 of PEEP, arterial blood gases reviewed pH 7.14 pCO2 51 patient was given 1 amp of bicarb with the bicarb drip white cell count is down to 18,800, hemodynamic status slightly stable than before, overall plan is to continue to come down oxygen monitor renal functions closely monitor hyperkalemia, repeat chemistry pending for later on today 12/09/2020, patient seen eval examined continued to have marginal hemodynamics and respiratory status, patient sedated medically paralyzed with Nimbex drip, propofol, fentanyl drip, arterial blood gases done this morning reveal severe metabolic and respiratory acidosis ventilator have been adjusted now new ventricular setting includes assist control rate of 30 to volume of 550 PEEP remains 10 oxygen is down to 90%, patient now on levo fed, we'll try to taper down the levo fed by giving fluids S patient is volume depleted as well and lowering down propofol aim to bring down propofol to 30-40 mics in next 24 hours, fluid will be given 100 mL an hour continuous with fluid boluses boluses of 500 mL/h for 2 hours, patient remains on meropenem, potassium noted to be elevated to 6.4, BUN/creatinine slightly up to 55 1.8, we'll give Kayexalate 2 doses, repeat BMP later on today 12/08/2020, patient seen eval examined during the rounds labs reviewed medications reviewed, critical care time spent 45 minutes, patient developed progressive increased respiratory distress was transferred to the ICU was intubated for respiratory distress, patient has dense bilateral infiltrate, sputum is positive for gram-negative rods, patient is hypotensive requiring fluid boluses likely will required vasopressors as well, for agitation has been placed on propofol for now has been on 75 need to be paralyzed, patient has been also started on fentanyl drip, patient has been on Cefepime for gram-negative pneumonia, final sputum culture have been pending, patient currently on full ventilator support with 100% oxygen and 10 of PEEP, rate is 26, breathing about 28-30, volume is 500, peak pressure in low 30s, blood pressure after the boluses 100/40, respiratory rate is 32, heart rate 81 temperature sats are 91%, 1 cell count is up to 23,000 hemoglobin is stable 14, d-dimer continue to go up 3.97, arterial blood gases revealed pH of 7.24 pCO2 58-year-old O2 of 80 8/2 an hour after on above ventilator setting, potentially was 5.5, BUN/creatinine 45 1.37, patient has a elevated inflammatory parameters including ferritin in 631, LDH is 1658 C-reactive protein 15.9 patient will need a central line, we will sedate and medically paralyzed, will start tube feed, monitor labs closely, patient will be started on Lovenox 30 mg subcu every 12 12/06/2020, patient seen eval reexamined labs reviewed medications reviewed care plan discussed, respiratory status remains marginal denies any chest pain, however more hypoxic currently on 15 L high flow oxygen, remains afebrile hemodynamically stable, oxygen saturation is 93%, check urgent pro-calcitonin as well as d-dimer, if d-dimer is elevated consider doing a VQ scan and duplex ultrasound lower extremity, we will also check an echocardiogram This is a 70-year-old male well-known to me patient has a severe diabetes mellitus and chronic kidney disease as baseline, 2 months ago patient was admitted to hospital with acute COVID-19 pneumonia and respiratory failure patient was on 100% oxygen and BiPAP but however successfully tapered down up to 4 L nasal cannula was discharged home patient did not came back for follow-up, for the last few days has been spiking fever more short of breath oxygen in increase to 5 L nasal cannula came into the hospital for further evaluation chest x-ray not much change his code went testing is negative, patient has been vaccinated for COVID-19 his most recent chest x-ray continued to show cardiomegaly chronic changes, no particular significant change from prior x- rays, patient does have a history of asbestosis lung however Objective - Vital Signs Vital signs: Vital Signs Temp 99.1 F 12/19/20 04:00 Pulse 137 H 12/19/20 09:00 Resp 28 H 12/19/20 09:00 BP 159/80 12/19/20 09:00 Pulse Ox 94 L 12/19/20 09:00 Intake & Output 12/18/20 12/19/20 12/19/20 18:59 06:59 18:59 Intake Total 470 838.943 180 Output Total 825 2245 600 Balance -355 -1406.057 -420 Weight 115.666 kg Intake: IV 240 240 60 Sodium Chloride 0.9% 1, 240 240 60 000 ml @ 20 mls/hr IV . Q24H [facility] Rx#:[id number] Intake, IV Titration 200 178.943 Amount propofoL 1,000 mg In 200 178.943 Empty Bag 1 bag @ Titrate IV .Q0M [facility] Rx#: [id number] Tube Feeding 30 330 90 Other 90 30 Output: Urine 825 2245 525 Stool 75 Other: Voiding Method Indwelling Catheter Indwelling Catheter Indwelling Catheter ABP, PAP, CO, CI - Last Documented Arterial Blood Pressure 124/55 - Exam - Constitutional General appearance: sedated on full ventilator support - Neck Neck: normal ROM Carotids: bilateral: upstroke normal Thyroid: bilateral: normal size - Respiratory Respiratory: bilateral: diminished, rales - Cardiovascular Rhythm: regular Heart sounds: normal: S1, S2 - Gastrointestinal General gastrointestinal: soft - Integumentary Integumentary: normal turgor - Neurologic Neurologic: CNII-XII intact - Musculoskeletal Musculoskeletal: gait normal, generalized weakness, strength equal bilaterally - Psychiatric Psychiatric: sedated on full ventilator support - Labs CBC & Chem 7: 12/19/20 04:21 12/19/20 04:21 Labs: Abnormal Lab Results - Last 24 Hours (Table) 12/18/20 12/18/20 12/19/20 Range/Units 16:01 20:34 00:16 WBC (3.8-10.6) k/uL Neutrophils # (1.3-7.7) k/uL Lymphocytes # (1.0-4.8) k/uL Monocytes # (0-1.0) k/uL ABG pH (7.35-7.45) ABG pCO2 (35-45) mmHg ABG HCO3 (21-25) mmol/L ABG Total CO2 (19-24) mmol/L Sodium (137-145) mmol/L Carbon Dioxide (22-30) mmol/L BUN (9-20) mg/dL Creatinine (0.66-1.25) mg/dL Glucose (74-99) mg/dL POC Glucose (mg/dL) 128 H 245 H 197 H (75-99) mg/dL Total Protein (6.3-8.2) g/dL Albumin (3.5-5.0) g/dL 12/19/20 12/19/20 12/19/20 Range/Units 04:17 04:21 04:21 WBC 31.5 H (3.8-10.6) k/uL Neutrophils # 29.3 H (1.3-7.7) k/uL Lymphocytes # 0.3 L (1.0-4.8) k/uL Monocytes # 1.4 H (0-1.0) k/uL ABG pH (7.35-7.45) ABG pCO2 (35-45) mmHg ABG HCO3 (21-25) mmol/L ABG Total CO2 (19-24) mmol/L Sodium 146 H (137-145) mmol/L Carbon Dioxide 34 H (22-30) mmol/L BUN 123 H* (9-20) mg/dL Creatinine 1.48 H (0.66-1.25) mg/dL Glucose 189 H (74-99) mg/dL POC Glucose (mg/dL) 180 H (75-99) mg/dL Total Protein 5.8 L (6.3-8.2) g/dL Albumin 3.2 L (3.5-5.0) g/dL 12/19/20 12/19/20 Range/Units 05:20 08:19 WBC (3.8-10.6) k/uL Neutrophils # (1.3-7.7) k/uL Lymphocytes # (1.0-4.8) k/uL Monocytes # (0-1.0) k/uL ABG pH 7.47 H (7.35-7.45) ABG pCO2 52 H (35-45) mmHg ABG HCO3 38 H (21-25) mmol/L ABG Total CO2 40 H (19-24) mmol/L Sodium (137-145) mmol/L Carbon Dioxide (22-30) mmol/L BUN (9-20) mg/dL Creatinine (0.66-1.25) mg/dL Glucose (74-99) mg/dL POC Glucose (mg/dL) 166 H (75-99) mg/dL Total Protein (6.3-8.2) g/dL Albumin (3.5-5.0) g/dL Assessment and Plan Assessment: Acute respiratory failure with difficulty to wean due to marginal oxygenation, withdraws the sedation ventilator adjustment acute kidney injury with fluid overload and anasarca, currently on diuretic phase left renal mass with history of renal cell clear carcinoma, status post partial elective nephrectomy in 2019 gram-negative pneumonia due to ESBL E. coli Severe sepsis and septic shock due to gram-negative pneumonia Acute on chronic hypoxic and hypercapnic respiratory failure Acute lung injury and ARDS Developing progressive right-sided pleural effusion Acute kidney injury hyperkalemia Metabolic and respiratory acidosis Uncontrolled diabetes Pulmonary fibrosis due to extensive recentCOVID-19 pneumonia Asbestosis lung pulmonary nodule Advanced diabetes mellitus with hyperglycemia Chronic kidney disease stage III Plan: We will do a CPAP 5 pressure support 10 and 50% oxygen and oxygen trial 3 times a day as tolerated for 1 hour Continue auto diuresis with Lasix IV Withdraw sedation assess mental status ventilator adjustment Follow renal functions closely Continue broad-spectrum antibiotics Ventilator adjustment as per orders as above patient status post second course of hemodialysis urine output has improved now will titrate oxygen down to 40% subsequently will bring down the PEEP as tolerated, continue weaning as tolerated Urology evaluation Patient is off of Nimbex drip ventilator adjustment status post central line Lovenox 30 mg subcu every 12 tube feed as per protocol Labs chest x-ray and ABG in the morning Off of Vasopressors Follow-up on [place] cultures including sputum urine and blood continue antibiotics IV steroids evaluation of pulmonary nodule once stabilized Time with Patient: Greater than 30
[2020-12-19 11:24] LABS: Glucose,Whole Blood 179 mg/dL (75-99)
[2020-12-19] MEDS: NOREPINEPHRINE 4 MG in SODIUM CHLORIDE 0.9% 250 ML IV SCH (14:31)
[2020-12-19 15:49] LABS: Glucose,Whole Blood 153 mg/dL (75-99)
[2020-12-19] MEDS ORDERED: VANCOMYCIN IV PER PHARMACY 1 EACH MISC MISCELLANE PRN (16:04)
[2020-12-19] MEDS ORDERED: LINEZOLID 600 MG in DEXTROSE/WATER 1 300ML.BAG IVPB SCH (16:30)
[2020-12-19] MEDS: CEFTAROLINE FOSAMIL 600 MG in SODIUM CHLORIDE 0.9% 250 ML IVPB SCH ×2 (18:06→23:04)
--- NOTE | 2020-12-19 18:58 | PN ---
PROGRESS NOTE DATE OF SERVICE: 12/19/2020 REASON FOR FOLLOWUP: Pneumonia. INTERVAL HISTORY: The patient did have a low-grade fever this afternoon of 100.8 degrees Fahrenheit. The patient's blood pressure is borderline. FiO2 is currently stable at 50%. No significant purulent secretions in the ET or diarrhea reported by nursing staff. PHYSICAL EXAMINATION: Blood pressure is 95/58 with a pulse of 74, temperature 98. He is 98% on 50% FiO2. GENERAL description is an elderly male lying in in no distress. RESPIRATORY system: Unlabored breathing, decreased breath sounds in the base. No wheeze. HEART S1, S2. Regular rate and rhythm. ABDOMEN soft, no tenderness. EXTREMITIES: 2+ edema of feet. LABS: Hemoglobin is 14, white count 1.5, BUN of 123, creatinine 1.4. DIAGNOSTIC IMPRESSION AND PLAN: Patient with respiratory failure which is multifactorial in this patient who does have a component of pneumonia possible aspiration. Sputum was ESBL E coli for which the patient has been on meropenem, now with a new fever that is slightly concerning and also hypertension. We will go ahead and repeat his cultures. Continue meropenem. We will add vancomycin to cover for possible gram positive, unfortunately we cannot use Zyvox as the patient is on fentanyl with white count 9.8 this is more likely steroid effect. Will be discontinued. Prognosis remains to be guarded. MMODL / IJN: [id number] /
[2020-12-19 19:44] LABS: Glucose,Whole Blood 229 mg/dL (75-99)
[2020-12-19] MEDS: INSULIN DETEMIR (LEVEMIR) 100 UNIT/ML SYR SQ SCH (20:08)
[2020-12-20 00:16] LABS: Glucose,Whole Blood 228 mg/dL (75-99)
[2020-12-20] MEDS: INSULIN ASPART (NovoLOG) 100 UNIT/ML VIAL SQ SCH ×2 (00:20→04:24)
[2020-12-20] MEDS: NOREPINEPHRINE 4 MG in SODIUM CHLORIDE 0.9% 250 ML IV SCH ×4 (02:27→22:12)
[2020-12-20 04:17] LABS: Glucose,Whole Blood 203 mg/dL (75-99)
[2020-12-20 05:03] LABS: ABG Base Excess 9.1 mmol/L; ABG HCO3 33 mmol/L (21-25); ABG PCO2 48 mmHg (35-45); ABG PH 7.45 (7.35-7.45); ABG PO2 73 mmHg (83-108); ABG TCO2 35 mmol/L (19-24); Allen Test Performed? Yes
[2020-12-20 05:31] LABS: Basophils # (A) 0.7 k/uL (0-0.2); Basophils % (A) 1 %; Eosinophils % (A) 0 %; HCT 46.1 % (39.0-53.0); HGB 14.1 gm/dL (13.0-17.5); Lymphocytes # (A) 0.1 k/uL (1.0-4.8); Lymphocytes % (A) 0 %; MCH 27.9 pg (25.0-35.0); MCHC 30.5 g/dL (31.0-37.0); MCV 91.6 fL (80.0-100.0); Mean Platelet Volume 7.9; Monocytes % (A) 4 %; Neutrophils # (A) 51.3 k/uL (1.3-7.7); Neutrophils % (A) 94 %; Platelet Count 323 k/uL (150-450); RBC 5.03 m/uL (4.30-5.90)
[2020-12-20 05:42] LABS: Albumin 2.6 g/dL (3.5-5.0); Calcium 9.2 mg/dL (8.4-10.2); Potassium 4.5 mmol/L (3.5-5.1)
[2020-12-20 06:07] LABS: WBC 54.5 k/uL (3.8-10.6)
[2020-12-20] MEDS: CISATRACURIUM 200 MG in SODIUM CHLORIDE 0.9% 180 ML IV SCH (06:30)
[2020-12-20 06:50] LABS: C Reactive Protein 26.9 mg/dL (<1.0)
[2020-12-20] MEDS: ALBUTEROL HFA INHALER INHALATION PRN ×2 (07:38→19:30)
[2020-12-20] MEDS: SYMBICORT 160-4.5 MCG INHALER INHALATION SCH ×2 (07:38→19:30)
--- NOTE | 2020-12-20 07:47 | XR ---
EXAMINATION TYPE: XR chest 1V portable DATE OF EXAM: 12/20/2020 COMPARISON: 12/19/2010 INDICATION: Tube placement TECHNIQUE: Single frontal view of the chest is obtained. FINDINGS: The heart size is normal. The pulmonary vasculature is normal. Bibasilar infiltrates are present. Right central venous catheter with tip in right atrium. No pneumothorax is present. Endotracheal tube tip is below the previous is to transverse the thorax. The aorta contains calcification. IMPRESSION: 1. Bibasilar infiltrates present. 2. Lines and catheters discussed above.
[2020-12-20 08:35] LABS: Glucose,Whole Blood 253 mg/dL (75-99)
[2020-12-20] MEDS: ENOXAPARIN 30 MG/0.3 ML SYRINGE SQ SCH ×2 (08:45→20:39)
[2020-12-20] MEDS: CHLORHEXIDINE GLUCONATE 15 ML CUP MUCOUS MEM SCH ×2 (08:45→20:39)
[2020-12-20] MEDS: CHOLECALCIFEROL 25 MCG (1000 IU) TABLET PO SCH (08:45)
[2020-12-20] MEDS: CEFTAROLINE FOSAMIL 600 MG in SODIUM CHLORIDE 0.9% 250 ML IVPB SCH (08:45)
[2020-12-20] MEDS: PANTOPRAZOLE 40 MG/10 ML VIAL IVP SCH (08:46)
[2020-12-20] MEDS: FUROSEMIDE 10 MG/ML 4 ML VIAL IV SCH ×2 (08:46→20:39)
[2020-12-20] MEDS: methylPREDNISolone SOD SUCCI 40 MG/ML 1 ML VIAL IV SCH ×2 (08:46→20:39)
[2020-12-20] MEDS: ZINC SULFATE 220 MG CAP PO SCH (08:46)
[2020-12-20] MEDS: GABAPENTIN 300 MG CAP PO SCH (08:46)
[2020-12-20] MEDS ORDERED: INSULIN REGULAR 100 UNIT in SODIUM CHLORIDE 0.9% 100 ML IV SCH (09:00)
[2020-12-20 10:05] LABS: Glucose,Whole Blood 277 mg/dL (75-99)
--- NOTE | 2020-12-20 10:15 | P.PN ---
Subjective Patient is seen in follow-up for acute kidney injury. Maintained on IV Lasix. Nonoliguric. Became hypotensive last night and is currently on low-dose Levophed. Intubated. Receiving tube feeding. Vital signs are stable. HEENT: Intubated. LUNGS: Breath sounds decreased. HEART: Rate and Rhythm are regular. ABDOMEN: Soft, no distention. EXTREMITITES: Trace edema. Objective - Vital Signs Vital signs: Vital Signs Temp 100.3 F H 12/20/20 08:15 Pulse 86 12/20/20 09:30 Resp 27 H 12/20/20 09:30 BP 123/62 12/20/20 09:30 Pulse Ox 95 12/20/20 09:30 Intake & Output 12/19/20 12/20/20 12/20/20 18:59 06:59 18:59 Intake Total 9371.640 3570.709 343.609 Output Total 1185 1264 390 Balance -131.996 828.709 -46.391 Intake: IV 240 240 60 Sodium Chloride 0.9% 1, 240 240 60 000 ml @ 20 mls/hr IV . Q24H [facility] Rx#:[id number] Intake, IV Titration 133.004 892.709 203.609 Amount Ceftaroline Fosamil 600 500 mg In Sodium Chloride 0.9 % 250 ml @ 250 mls/hr IVPB Q12HR [facility] Rx#: [id number] Insulin Regular 100 unit 9.444 In Sodium Chloride 0.9% 100 ml @ Per Protocol IV .Q0M [facility] Rx#:[id number] Norepinephrine 4 mg In 26.295 227.705 173.924 Sodium Chloride 0.9% 250 ml @ 0.05 MCG/KG/MIN 22. 034 mls/hr IV .[id number] [facility] Rx#:[id number] propofoL 1,000 mg In 106.709 165.004 20.241 Empty Bag 1 bag @ Titrate IV .Q0M [facility] Rx#: [id number] Tube Feeding 300 360 30 Other 380 600 50 Output: Urine 1110 1264 390 Stool 75 Other: Voiding Method Indwelling Catheter Indwelling Catheter # Bowel Movements 1 ABP, PAP, CO, CI - Last Documented Arterial Blood Pressure 124/55 - Labs CBC & Chem 7: 12/20/20 04:49 12/20/20 04:49 Labs: Abnormal Lab Results - Last 24 Hours (Table) 12/19/20 12/19/20 12/19/20 Range/Units 11:22 15:48 19:43 WBC (3.8-10.6) k/uL MCHC (31.0-37.0) g/dL Neutrophils # (1.3-7.7) k/uL Lymphocytes # (1.0-4.8) k/uL Monocytes # (0-1.0) k/uL Basophils # (0-0.2) k/uL ABG pCO2 (35-45) mmHg ABG pO2 (83-108) mmHg ABG HCO3 (21-25) mmol/L ABG Total CO2 (19-24) mmol/L BUN (9-20) mg/dL Creatinine (0.66-1.25) mg/dL Glucose (74-99) mg/dL POC Glucose (mg/dL) 179 H 153 H 229 H (75-99) mg/dL C-Reactive Protein (<1.0) mg/dL Total Protein (6.3-8.2) g/dL Albumin (3.5-5.0) g/dL 12/20/20 12/20/20 12/20/20 Range/Units 00:14 04:14 04:49 WBC (3.8-10.6) k/uL MCHC (31.0-37.0) g/dL Neutrophils # (1.3-7.7) k/uL Lymphocytes # (1.0-4.8) k/uL Monocytes # (0-1.0) k/uL Basophils # (0-0.2) k/uL ABG pCO2 (35-45) mmHg ABG pO2 (83-108) mmHg ABG HCO3 (21-25) mmol/L ABG Total CO2 (19-24) mmol/L BUN 133 H* (9-20) mg/dL Creatinine 1.93 H (0.66-1.25) mg/dL Glucose 232 H (74-99) mg/dL POC Glucose (mg/dL) 228 H 203 H (75-99) mg/dL C-Reactive Protein 26.9 H (<1.0) mg/dL Total Protein 5.0 L (6.3-8.2) g/dL Albumin 2.6 L (3.5-5.0) g/dL 12/20/20 12/20/20 12/20/20 Range/Units 04:49 04:57 08:33 WBC 54.5 H* (3.8-10.6) k/uL MCHC 30.5 L (31.0-37.0) g/dL Neutrophils # 51.3 H (1.3-7.7) k/uL Lymphocytes # 0.1 L (1.0-4.8) k/uL Monocytes # 2.0 H (0-1.0) k/uL Basophils # 0.7 H (0-0.2) k/uL ABG pCO2 48 H (35-45) mmHg ABG pO2 73 L (83-108) mmHg ABG HCO3 33 H (21-25) mmol/L ABG Total CO2 35 H (19-24) mmol/L BUN (9-20) mg/dL Creatinine (0.66-1.25) mg/dL Glucose (74-99) mg/dL POC Glucose (mg/dL) 253 H (75-99) mg/dL C-Reactive Protein (<1.0) mg/dL Total Protein (6.3-8.2) g/dL Albumin (3.5-5.0) g/dL 12/20/20 Range/Units 10:04 WBC (3.8-10.6) k/uL MCHC (31.0-37.0) g/dL Neutrophils # (1.3-7.7) k/uL Lymphocytes # (1.0-4.8) k/uL Monocytes # (0-1.0) k/uL Basophils # (0-0.2) k/uL ABG pCO2 (35-45) mmHg ABG pO2 (83-108) mmHg ABG HCO3 (21-25) mmol/L ABG Total CO2 (19-24) mmol/L BUN (9-20) mg/dL Creatinine (0.66-1.25) mg/dL Glucose (74-99) mg/dL POC Glucose (mg/dL) 277 H (75-99) mg/dL C-Reactive Protein (<1.0) mg/dL Total Protein (6.3-8.2) g/dL Albumin (3.5-5.0) g/dL Assessment and Plan Plan: Assessment: 1. Acute kidney injury secondary to ATN secondary to sepsis. Status post hemodialysis this admission. Renal function worse today due to hypotension - cr 1.93. Nonoliguric. 2. Disproportionally elevated BUN secondary to acute kidney injury and steroids. 3. Volume overload. Improving with diuresis. 4. Acute hypoxic respiratory failure secondary to pneumonia and fluid overload. 5. Pneumonia maintained on antibiotics. Worsening leukocytosis - ID following. 6. History of renal carcinoma status post right partial nephrectomy in November 2019. Urology following. 7. Hypernatremia from free water diuresis and lack of oral water intake. Plan: Decrease Lasix to 40 mg IV once daily. Maintain free water at rate of 50 mL an hour with tube feeding. Avoid nephrotoxins. Wean FiO2. Continue to monitor renal function and urine output.
[2020-12-20 10:38] LABS: Glucose,Whole Blood 193 mg/dL (75-99)
[2020-12-20 11:38] LABS: Glucose,Whole Blood 117 mg/dL (75-99)
--- NOTE | 2020-12-20 11:40 | P.PN ---
Subjective Progress Note Date: 12/20/20 (Critical care time 35 minutes) Principal diagnosis: left renal mass Acute kidney injury Fluid overload Acute on chronic hypoxic respiratory failure with worsening status septic shock Bilateral gram-negative pneumonia due to ESBL E. coli Acute kidney injury Hyperkalemia Uncontrolled diabetes and hyperglycemia Pulmonary fibrosis due to prior extensive COVID-19 pneumonia Sepsis and fever of unknown region Generalized weakness and medical debility Asbestosis lung Advanced diabetes mellitus with hyperglycemia Chronic kidney disease stage III 12/20/2020, patient does open her his eyes intermittently, off of propofol, tolerating tube feed well, no obvious distress is present, patient has been on CPAP 5 and pressure support 10, rate is in mid 20s, spontaneous tidal volume is 500-550, no obvious distress present, pressure support lowered to 5 rate remains along with tidal volume remains stable, patient is on insulin drip, plan to keep on CPAP and pressure support throughout the day has tolerated then will put assist control at nighttime, then will repeat the process in the morning again, we'll get arterial blood gas, WBC count is up to 54,000, arterial blood gas stable pH is 7.45 pCO2 48 pO2 of 73, BUN/creatinine up to 133 and 1.93, patient having low-grade fever, will do aguilar culture as well as do the computed tomography scan of the chest abdominal and pelvis without dye 12/19/2020, patient seen eval examined during the rounds labs reviewed medicati ons reviewed care plan discussed with the staff, attempted CPAP and pressure support trial with CPAP of 5 and pressure support of 10 and 50% oxygen, tolerated about 20 minutes, patient developed respiratory distress with tachycardia and tachypnea put back on assist control mode, patient is off of pr opofol, opens eyes, anxious however not following commands, patient remains on antifungal antibiotics as well as antibacterial, with IV steroids, patient back on assist control with a rate of 20 tidal volume of 500, +5 of PEEP, and 50% oxygen, adequate urine output, chest x-ray performed today continue to manifest parenchymal changes and opacities with cardiomegaly interstitial edema, white cell count is up to 31,000, arterial blood gas revealed pH of 7.47, pCO2 52, pO2 is 93, BUN/creatinine stable 123/1.48, adequate urine output has been noted, 12/18/2020, patient seen eval examined during the rounds labs reviewed medications reviewed care plan discussed industry status remains marginal but stable, remains on 50% oxygen and 5 of PEEP, saturation is 94%, patient has been on rate of 20 tidal volume of 500, patient remains on low-dose propofol, discussed with staff at length plan is to taper and DC the propofol given a sedation holiday if tolerated well and arousable will do weaning trials tomorrow, chest x-ray continued to show bilateral partial infiltrates and small effusion stable lines and tubes, arterial blood gas stable with pH of 7.48 pCO2 49 and pO2 91, white cell count is up to 20,000, BUN/creatinine 128/ 1.78 patient has been started on IV antifungal, 12/17/2020, patient seen eval examined during the rounds labs reviewed medications reviewed care plan discussed, respiratory status slowly improving, FiO2 down to 50% saturation is 94%, PEEP is down to 8, patient remains on propofol 20 mics, arterial blood gas indicated above respiratory and metabolic alkalosis, patient has been having adequate urine output, Lasix drip has been discontinued, remains on broad-spectrum antibiotics and IV fluids, bland overall today is to taper down the sedation give sedation holidays decrease the respiratory rate to 20 and decrease the PEEP to 5, will assess mental status once awake slow weaning to be continued, WBC count 16,700, hemoglobin and hematocrit stable, arterial blood gas revealed pH is 7.5 pCO2 42 pO2 of 83, BUN/creatinine remains 129 and 1.84 overall remains stable in last 48 hours 12/16/2020, patient seen and evaluated examined, sedated with propofol drip and fentanyl drip, able to titrate oxygen down to 40% however could not drop to keep less than 8, oxygen saturation remains marginal at 88-90%, urine output is adequate up to 300 mL/h, remains on Lasix strip, generalized anasarca is present, off of that hemodialysis for last 48 hours patient appears to be in diuretic phase of acute kidney injury discussed with the staff at length, need to improve oxygen prior to lowering down the PEEP, continue auto diuresis with Lasix strip, however we'll titrate sedation down, will DC the fentanyl drip, continue propofol, fentanyl will be used as needed, ventilator setting remains stable currently on assist control rate of 30, tidal volume 550, PEEP of 8, oxyg en is 40%, labs reviewed white cell count 15,800, hemoglobin and hematocrit is stable 13 and 38, arterial blood gas revealed pH of 7.48 pCO2 42 pO2 62, a line is out, BUN/creatinine is 120 and 2.13, 12/14/2020, patient seen eval examined during the rounds overall respiratory status remains marginal patient is a however down to 50% oxygen saturation is 93%, he is sedated he is off of medical paralysis, currently is on propofol and fentanyl drip, vent setting is stable remains on assist control rate of 30 tidal volume 550, PEEP is 10 FiO2 is 50%, patient had a started making urine he is hemodialysis 2 [id number] currently is on 10 mg Lasix strip, labs and radiographic studies reviewed, x-ray shows diffuse bilateral infiltrate and no significant change, arterial blood gas significantly improved pH is 7.35 pCO2 47 pO2 87, white cell count down to 11,000, 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 new mass has been noted, urology has been following pending further evaluation until he stabilized 12/13/2020, patient seen eval examined during the rounds labs reviewed medications reviewed care plan discussed, at industry status the remains marginal 70% oxygen, patient remains on PEEP of 10, tidal volume is 550, rate is 30, ABG reviewed this morning slightly better, patient remains on Nimbex along with fentanyl and propofol, can taper and DC the Nimbex drip, patient had the first episode of hemodialysis yesterday over 2 L I've been removed however patient did require vasopressors during dialysis, currently undergoing second course of hemodialysis again back on levo fed postdialysis yesterday came off of U for drip without any problem issues, patient had ultrasound done which showed left-sided renal mass versus bowel shadow urology has been consulted, patient remains on broad-spectrum antibiotics labs reviewed x-ray reviewed care plan discussed with the staff at length 12/12/2020, patient seen eval examined during the rounds labs reviewed medications reviewed patient remains sedated and medically paralyzed, patient is on the propofol which is down to 40 mics, NIMBEX AND FENTANYL DRIP, HEMODYNAMIC STATUS IS STABLE OFF OF VASOPRESSORS, BLOOD PRESSURE STABLE, respiratory status remains very marginal along with fluid overload and anasarca attempted Lasix strip patient did not respond very well, patient remains on assist control with a rate of 30 tidal volume of 550, 10 of PEEP oxygen is 70%, unable to wean it down saturations marginal 91% only, peak airway pressure up into high 30s now persistent with poor compliance of the chest also component of fluid overload, labs reviewed white cell count remains stable 13,000, hemoglobin stable platelet count is 206,000, ABG revealed pH of 7.21, pCO2 50, pO2 72, sodium 138 production continued to be up to 6.3, BUN and creatinine increase to 96 and 2.66, 12/11/2020, patient seen eval reexamined during the rounds labs reviewed medications reviewed care plan discussed, respiratory status the remains marginal however patient started desaturating earlier this morning has a significant amount of respiratory and metabolic acidosis as well, patient has been +3 L in the last 24 hours, discussed with the renal service about increasing diuretics or possibly starting on bicarb drip, renal function however remains stable, patient is sedated and medically paralyzed with fentanyl propofol Nimbex, discussed with staff about lowering down propofol drip to 30-40 mics, chest x-ray from today reviewed consistent with fluid overload fluid appears to be tracking into right major fissure, overall not much change from previous x-ray, patient remains on ventilator setting current setting includes assist control rate of 30, tidal volume of 550, FiO2 increase from 60% to 70%, sugars elevated have been on sliding scale, patient is tolerating tube feed fairly well, patient also noted to have progressive developing anasarca, noted labs white cell count continue to go down to 13,000, arterial blood gas continued magnificent respiratory and metabolic acidosis, significant component of diffusion impairment, hyperkalemia with potassium was 6.1, 12/10/2020, patient seen eval examined in the ICU, he remains intubated and medically sedated and paralyzed on the propofol, name backs and fentanyl drip, levo fed is now came off after fluid boluses, patient has significant metabolic acidosis due to multifactorial processes including acute kidney injury pneumonia and the vasopressors, patient has been on bicarb drip, being adjusted, to feed is in process, hemodynamic status is slightly better, FiO2 is started down to 70%, underwent setting includes assist control rate of 30 to volume of 550 10 of PEEP, arterial blood gases reviewed pH 7.14 pCO2 51 patient was given 1 amp of bicarb with the bicarb drip white cell count is down to 18,800, hemodynamic status slightly stable than before, overall plan is to continue to come down oxygen monitor renal functions closely monitor hyperkalemia, repeat chemistry pending for later on today 12/09/2020, patient seen eval examined continued to have marginal hemodynamics and respiratory status, patient sedated medically paralyzed with Nimbex drip, propofol, fentanyl drip, arterial blood gases done this morning reveal severe metabolic and respiratory acidosis ventilator have been adjusted now new ventricular setting includes assist control rate of 30 to volume of 550 PEEP remains 10 oxygen is down to 90%, patient now on levo fed, we'll try to taper down the levo fed by giving fluids S patient is volume depleted as well and lowering down propofol aim to bring down propofol to 30-40 mics in next 24 hours, fluid will be given 100 mL an hour continuous with fluid boluses boluses of 500 mL/h for 2 hours, patient remains on meropenem, potassium noted to be elevated to 6.4, BUN/creatinine slightly up to 55 1.8, we'll give Kayexalate 2 doses, repeat BMP later on today 12/08/2020, patient seen eval examined during the rounds labs reviewed medications reviewed, critical care time spent 45 minutes, patient developed progressive increased respiratory distress was transferred to the ICU was intubated for respiratory distress, patient has dense bilateral infiltrate, sputum is positive for gram-negative rods, patient is hypotensive requiring fluid boluses likely will required vasopressors as well, for agitation has been placed on propofol for now has been on 75 need to be paralyzed, patient has been also started on fentanyl drip, patient has been on Cefepime for gram-negative pneumonia, final sputum culture have been pending, patient currently on full ventilator support with 100% oxygen and 10 of PEEP, rate is 26, breathing about 28-30, volume is 500, peak pressure in low 30s, blood pressure after the boluses 100/40, respiratory rate is 32, heart rate 81 temperature sats are 91%, 1 cell count is up to 23,000 hemoglobin is stable 14, d-dimer continue to go up 3.97, arterial blood gases revealed pH of 7.24 pCO2 58-year-old O2 of 80 8/2 an hour after on above ventilator setting, potentially was 5.5, BUN/creatinine 45 1.37, patient has a elevated inflammatory parameters including ferritin in 631, LDH is 1658 C-reactive protein 15.9 patient will need a central line, we will sedate and medically paralyzed, will start tube feed, monitor labs closely, patient will be started on Lovenox 30 mg subcu every 12 12/06/2020, patient seen eval reexamined labs reviewed medications reviewed care plan discussed, respiratory status remains marginal denies any chest pain, however more hypoxic currently on 15 L high flow oxygen, remains afebrile hemodynamically stable, oxygen saturation is 93%, check urgent pro-calcitonin as well as d-dimer, if d-dimer is elevated consider doing a VQ scan and duplex ultrasound lower extremity, we will also check an echocardiogram This is a 70-year-old male well-known to me patient has a severe diabetes mellitus and chronic kidney disease as baseline, 2 months ago patient was admitted to hospital with acute COVID-19 pneumonia and respiratory failure patient was on 100% oxygen and BiPAP but however successfully tapered down up to 4 L nasal cannula was discharged home patient did not came back for follow-up, for the last few days has been spiking fever more short of breath oxygen in increase to 5 L nasal cannula came into the hospital for further evaluation chest x-ray not much change his code went testing is negative, patient has been vaccinated for COVID-19 his most recent chest x-ray continued to show cardiomegaly chronic changes, no particular significant change from prior x-ray s, patient does have a history of asbestosis lung however Objective - Vital Signs Vital signs: Vital Signs Temp 100.3 F H 12/20/20 08:15 Pulse 89 12/20/20 10:45 Resp 30 H 12/20/20 10:45 BP 95/50 12/20/20 10:45 Pulse Ox 95 12/20/20 10:45 Intake & Output 12/19/20 12/20/20 12/20/20 18:59 06:59 18:59 Intake Total 2612.946 5649.709 352.497 Output Total 1185 1264 390 Balance -131.996 828.709 -37.503 Weight 115.666 kg Intake: IV 240 240 60 Sodium Chloride 0.9% 1, 240 240 60 000 ml @ 20 mls/hr IV . Q24H [facility] Rx#:[id number] Intake, IV Titration 133.004 892.709 212.497 Amount Ceftaroline Fosamil 600 500 mg In Sodium Chloride 0.9 % 250 ml @ 250 mls/hr IVPB Q12HR [facility] Rx#: [id number] Insulin Regular 100 unit 18.332 In Sodium Chloride 0.9% 100 ml @ Per Protocol IV .Q0M [facility] Rx#:[id number] Norepinephrine 4 mg In 26.295 227.705 173.924 Sodium Chloride 0.9% 250 ml @ 0.05 MCG/KG/MIN 22. 034 mls/hr IV .[id number] [facility] Rx#:[id number] propofoL 1,000 mg In 106.709 165.004 20.241 Empty Bag 1 bag @ Titrate IV .Q0M [facility] Rx#: [id number] Tube Feeding 300 360 30 Other 380 600 50 Output: Urine 1110 1264 390 Stool 75 Other: Voiding Method Indwelling Catheter Indwelling Catheter Indwelling Catheter # Bowel Movements 1 ABP, PAP, CO, CI - Last Documented Arterial Blood Pressure 124/55 - Exam - Constitutional General appearance: sedated on full ventilator support - Neck Neck: normal ROM Carotids: bilateral: upstroke normal Thyroid: bilateral: normal size - Respiratory Respiratory: bilateral: diminished, rales - Cardiovascular Rhythm: regular Heart sounds: normal: S1, S2 - Gastrointestinal General gastrointestinal: soft - Integumentary Integumentary: normal turgor - Neurologic Neurologic: CNII-XII intact - Musculoskeletal Musculoskeletal: gait normal, generalized weakness, strength equal bilaterally - Psychiatric Psychiatric: sedated on full ventilator support - Labs CBC & Chem 7: 12/20/20 04:49 12/20/20 04:49 Labs: Abnormal Lab Results - Last 24 Hours (Table) 12/19/20 12/19/20 12/20/20 Range/Units 15:48 19:43 00:14 WBC (3.8-10.6) k/uL MCHC (31.0-37.0) g/dL Neutrophils # (1.3-7.7) k/uL Lymphocytes # (1.0-4.8) k/uL Monocytes # (0-1.0) k/uL Basophils # (0-0.2) k/uL ABG pCO2 (35-45) mmHg ABG pO2 (83-108) mmHg ABG HCO3 (21-25) mmol/L ABG Total CO2 (19-24) mmol/L BUN (9-20) mg/dL Creatinine (0.66-1.25) mg/dL Glucose (74-99) mg/dL POC Glucose (mg/dL) 153 H 229 H 228 H (75-99) mg/dL C-Reactive Protein (<1.0) mg/dL Total Protein (6.3-8.2) g/dL Albumin (3.5-5.0) g/dL Procalcitonin (0.02-0.09) ng/mL 12/20/20 12/20/20 12/20/20 Range/Units 04:14 04:49 04:49 WBC (3.8-10.6) k/uL MCHC (31.0-37.0) g/dL Neutrophils # (1.3-7.7) k/uL Lymphocytes # (1.0-4.8) k/uL Monocytes # (0-1.0) k/uL Basophils # (0-0.2) k/uL ABG pCO2 (35-45) mmHg ABG pO2 (83-108) mmHg ABG HCO3 (21-25) mmol/L ABG Total CO2 (19-24) mmol/L BUN 133 H* (9-20) mg/dL Creatinine 1.93 H (0.66-1.25) mg/dL Glucose 232 H (74-99) mg/dL POC Glucose (mg/dL) 203 H (75-99) mg/dL C-Reactive Protein 26.9 H (<1.0) mg/dL Total Protein 5.0 L (6.3-8.2) g/dL Albumin 2.6 L (3.5-5.0) g/dL Procalcitonin 1.41 H (0.02-0.09) ng/mL 12/20/20 12/20/20 12/20/20 Range/Units 04:49 04:57 08:33 WBC 54.5 H* (3.8-10.6) k/uL MCHC 30.5 L (31.0-37.0) g/dL Neutrophils # 51.3 H (1.3-7.7) k/uL Lymphocytes # 0.1 L (1.0-4.8) k/uL Monocytes # 2.0 H (0-1.0) k/uL Basophils # 0.7 H (0-0.2) k/uL ABG pCO2 48 H (35-45) mmHg ABG pO2 73 L (83-108) mmHg ABG HCO3 33 H (21-25) mmol/L ABG Total CO2 35 H (19-24) mmol/L BUN (9-20) mg/dL Creatinine (0.66-1.25) mg/dL Glucose (74-99) mg/dL POC Glucose (mg/dL) 253 H (75-99) mg/dL C-Reactive Protein (<1.0) mg/dL Total Protein (6.3-8.2) g/dL Albumin (3.5-5.0) g/dL Procalcitonin (0.02-0.09) ng/mL 12/20/20 12/20/20 Range/Units 10:04 10:36 WBC (3.8-10.6) k/uL MCHC (31.0-37.0) g/dL Neutrophils # (1.3-7.7) k/uL Lymphocytes # (1.0-4.8) k/uL Monocytes # (0-1.0) k/uL Basophils # (0-0.2) k/uL ABG pCO2 (35-45) mmHg ABG pO2 (83-108) mmHg ABG HCO3 (21-25) mmol/L ABG Total CO2 (19-24) mmol/L BUN (9-20) mg/dL Creatinine (0.66-1.25) mg/dL Glucose (74-99) mg/dL POC Glucose (mg/dL) 277 H 193 H (75-99) mg/dL C-Reactive Protein (<1.0) mg/dL Total Protein (6.3-8.2) g/dL Albumin (3.5-5.0) g/dL Procalcitonin (0.02-0.09) ng/mL Assessment and Plan Assessment: Elevated WBC leak or mite reaction versus occult sepsis patient is also having low-grade fever Acute respiratory failure with difficulty to wean due to marginal oxygenation, withdraws the sedation ventilator adjustment acute kidney injury with fluid overload and anasarca, currently on diuretic phase left renal mass with history of renal cell clear carcinoma, status post partial elective nephrectomy in 2019 gram-negative pneumonia due to ESBL E. coli Severe sepsis and septic shock due to gram-negative pneumonia Acute on chronic hypoxic and hypercapnic respiratory failure Acute lung injury and ARDS Developing progressive right-sided pleural effusion Acute kidney injury hyperkalemia Metabolic and respiratory acidosis Uncontrolled diabetes Pulmonary fibrosis due to extensive recentCOVID-19 pneumonia Asbestosis lung pulmonary nodule Advanced diabetes mellitus with hyperglycemia Chronic kidney disease stage III Plan: We'll get computed tomography scan of the chest abdomen pelvis without dye, pancultures, Continue weaning trial We will do a CPAP 5 pressure support 10 and 50% oxygen and oxygen trial 3 times a day as tolerated for 1 hour Continue auto diuresis with Lasix IV as needed Withdraw sedation assess mental status ventilator adjustment Follow renal functions closely Continue broad-spectrum antibiotics Ventilator adjustment as per orders as above patient status post second course of hemodialysis urine output has improved now will titrate oxygen down to 40% subsequently will bring down the PEEP as tolerated, continue weaning as tolerated Urology evaluation Patient is off of Nimbex drip ventilator adjustment status post central line Lovenox 30 mg subcu every 12 tube feed as per protocol Labs chest x-ray and ABG in the morning Off of Vasopressors Follow-up on Aguilar cultures including sputum urine and blood continue antibiotics IV steroids evaluation of pulmonary nodule once stabilized Time with Patient: Greater than 30
[2020-12-20 12:49] LABS: Glucose,Whole Blood 151 mg/dL (75-99)
[2020-12-20 13:41] LABS: Glucose,Whole Blood 126 mg/dL (75-99)
--- NOTE | 2020-12-20 13:53 | CT ---
EXAMINATION TYPE: CT ChestAbdPelvis wo con DATE OF EXAM: 12/20/2020 INDICATION: Low grade fever with known pneumonia COMPARISON: 10/29/2020 CT DLP: 1465.8 mGycm CONTRAST: Performed without Oral Contrast and without intravenous contrast, patient injected with 0 mL of Isovu e 300. TECHNIQUE: Axial images at 5 mm thick sections. Reconstructed images in the coronal plane. Delayed images through the kidneys. FINDINGS: CT CHEST: Patient is intubated. Endotracheal tube tip terminates above the bifurcation. Nasogastric t ube transverses the thorax. Portion of the thyroid visualized is normal. Minimal pleural effusions are present. Adjacent small infiltrate is present at the lung bases slightl y greater on the left. Atelectasis and pneumonia can be considered. No enlarged mediastinal or hilar adenopathy is evident. The ascending aorta diameter at the level of the main pulmonary artery is 3.9 cm. The main pulmonary artery diameter at the bifurcation is 3.4 cm. Some mild coronary artery calcification is present. CT ABDOMEN: Minimal free fluid is within the pelvis Liver: Normal Spleen: Normal Pancreas: Atrophic Adrenal glands: The adrenal glands are normal. Gallbladder: Normal Kidneys: No masses are evident. No hydronephrosis is present. There is a 2.9 cm hypodensity extendi ng from the posterior lateral upper pole right kidney measuring 37 Hounsfield units. A complex cyst c ould be considered. Follow-up with ultrasound is recommended. No renal calcifications are evident. Aorta: Vascular calcification is within the aorta. Inferior vena cava: Normal. CT PELVIS: Loops of bowel within the abdomen and pelvis are normal. This study is a lateral contrast limitin g bowel evaluation. There is some nonspecific mesenteric stranding anterior to the aortic bifurcation within the mesentery. No suspicious masses are identified. There are multiple diverticuli within the sigmoid colon. Consider diverticulitis is a possible source for mesenteric inflammatory changes. Appendix: Not visualized. No suspicious inflammatory changes or dilated tubular structures are eviden t. Urinary bladder: Decompressed with limited evaluation. Catheter is present Genitourinary structures: The prostate appears unremarkable. Osseous structures: No suspicious lytic or sclerotic lesions. IMPRESSIONS: 1. Bibasilar infiltrates are nonspecific. Atelectasis and pneumonia should be considered. Minimal adj acent effusions are present. 2. Sigmoid diverticulosis. 3. Nonspecific inflammatory change within the mid pelvic mesentery. Etiology of this is unclear but p otentially could be related to diverticulitis. No abscess formation is evident. #4. Minimal free flu id within the abdomen. 5. Complex cyst right kidney. Follow-up with ultrasound is recommended.
[2020-12-20 14:41] LABS: Glucose,Whole Blood 133 mg/dL (75-99)
[2020-12-20 15:51] LABS: Glucose,Whole Blood 162 mg/dL (75-99)
[2020-12-20 16:43] LABS: Glucose,Whole Blood 155 mg/dL (75-99)
[2020-12-20] MEDS: metroNIDAZOLE-NS PMX 500 MG in SALINE 1 100ML.BAG IVPB SCH (16:59)
[2020-12-20 17:44] LABS: Glucose,Whole Blood 226 mg/dL (75-99)
--- NOTE | 2020-12-20 18:27 | PN ---
PROGRESS NOTE DATE OF SERVICE: 12/20/2020. REASON FOR FOLLOWUP: 1. Pneumonia. 2. Elevated white count. INTERVAL HISTORY: Patient did spike a fever last night and this morning of 100.3, currently 99.2. The patient is requiring low-dose pressor support to maintain his blood pressure and no significant purulent secretions through the ET or diarrhea reported by the nursing staff. The patient is currently intubated on the vent. PHYSICAL EXAMINATION: Blood pressure 91/55, pulse of 80. Temperature is 100.3. He is 98% on 50% FIO2. General description is an elderly male lying in bed in no distress. Respiratory system: Unlabored breathing, decreased breath sounds in the base, with no wheeze. Heart S1, S2. Regular rate and rhythm. Abdomen soft, no tenderness. EXTREMITIES: No edema of the feet. LAB: Hemoglobin 14.1, 44.5. BUN of 133, creatinine 1.93, procalcitonin 1.41. Repeat blood and sputum has been requested, which are currently pending. DIAGNOSTIC IMPRESSION AND PLAN: Patient with acute respiratory failure which is multifactorial in this patient. Sputum initially grew ESBL E coli for which the patient received almost 2 weeks of meropenem. Subsequently did have a new fever and concern for possible gram-positive component as the patient was on good gram-negative coverage. Unfortunately we were not able to add vancomycin because of allergy as well as renal insufficiency and Zyvox because of Fentanyl the patient was on. Hence antibiotic was switched over to Shameka, now with significant worsening of his white count. Some of it could have been related to steroid the patient is on. We will wait for the repeat culture to finalize to adjust antibiotic further. We will add Flagyl. Overall prognosis remains to be guarded and monitor clinical course closely. MMODL / IJN: [id number] /
[2020-12-20 18:44] LABS: Glucose,Whole Blood 174 mg/dL (75-99)
[2020-12-20] MEDS: SENNOSIDES 8.6 MG TAB PO SCH ×2 (19:10→20:39)
[2020-12-20] MEDS: atenoloL 25 MG TAB PO SCH (19:10)
[2020-12-20 20:39] LABS: Glucose,Whole Blood 160 mg/dL (75-99)
[2020-12-20] MEDS: CEFTAROLINE FOSAMIL 400 MG in SODIUM CHLORIDE 0.9% 250 ML IVPB SCH (20:39)
[2020-12-20 22:16] LABS: Glucose,Whole Blood 157 mg/dL (75-99)
[2020-12-20 23:11] LABS: Glucose,Whole Blood 151 mg/dL (75-99)
--- NOTE | 2020-12-21 | P.PN ---
Subjective Progress Note Date: 12/18/20 Principal diagnosis: secondary bacterial pneumonia and he was recently discharged after he was treated for Covid 19 . Patient is a pleasant 70-year-old male came in with the complaints of shortness of breath on 4 L of oxygen and oxygen saturation is going down to 78%. Patient is comparing of cough with yellowish sputum production. Patient was having high-grade fevers patient denied any dysuria patient denied nausea vomiting. Patient was discharged from the hospital after 3 week treatment for Covid 19 patient was discharged earlier this month. Patient came back positive again on of this month patient did receive both Covid vaccines. Patient's creatinine at the time of discharge is around 1.3 presently around 1.3. Patient is bit hyponatremic. Patient at a chest x-ray which is showing bilateral infiltrates consistent with Covid 19, although infiltrates are mildly better compared to the previous x-rays. 12/05/2020 Patient continues to have fevers is pretty status appears to have worsened a bit and patient is an 5 L of oxygen is still bit hypoxic and patient is in mild respiratory distress. Patient is being treated for secondary bacterial pneumonia. Repeat Covid 19 PCR is negative now. Patient blood sugars are well controlled. Dec 09 2020 Patient respiratory status worsened patient went into septic shock was subsequently transferred to intensive care unit with sputum cultures are showing ESBL E. coli patient was started on meropenem. Patient's ABGs consistent with the acidosis and both hypoxic as well as hypercapnic respiratory failure patient is presently on ventilator support. Assist control ventilation with PEEP of 10 have out of 90% set up respiratory rate of around 20 and tidal volume of 550. Patient is also numb nor- epinephrine. Patient is in septic shock. has very minimal urine output patient appears to have acute to the necrosis and patient has elevated creatinine of 2.15. Patient's potassium is elevated to 6.4 received Late has come down to 5.8. Patient is on the propofol sedation patient is also receiving systemic steroids. Atenolol and the Norvasc will be discontinued 12/10/2020 Patient remains on ventilator support with set up respiratory to for 30, tidal volume of 550, PEEP of 10 and FiO2 of 70% patient was on FiO2 of 100% yesterday. Patient remains on the propofol and Nimbex. Patient is off the levo fed. Remains on meropenem since the December 08. 12/11/2020 Patient remains acidotic with hypercapnia, respiratory is doses. Patient remains on the same and settings as yesterday. Patient is hypokalemic nephrology is managing this. Patient creatinine remained stable at 2.2. Patient's blood sugars are high will add short-acting insulin every 6 hours patient is receiving OG tube feedings, Nepro. Patient is back on norepinephrine. His leukocytosis although can you to improve. 12/12/2020 Visit acidosis improved patient remains in the same symptoms when settings as yesterday. Patient was started on hemodialysis because of persistent hyperkalemia volume overload poor urine output. Patient chest x-ray showing pulmonary edema patient has extensive anasarca. Patient is presently not on norepinephrine. Patient is on IV Lasix drip. 12/13/2020 and patient appears to have improvement in overall clinical condition patient had hemodialysis with removal of around 2.5 L today patient started urinating again. Patient has good urine output today. Patient still has peripheral edema patient FiO2 requirements have come down and patient is presently on 60% FiO2 did patient acidosis improved and pH is close to normal Review of systems: Unable to obtain due to his clinical condition. Potassium is 5.5. 12/14/2020 Patient remains intubated patient is presently on 45% FiO2. Patient is urinating well around 200 mL per hour patient volume status improved respiratory status improved 18 is improving patient hemodialysis is on hold is on IV Lasix drip. Patient is presently not on pressor support. Chest x-ray still showing diffuse bilateral infiltrates without any significant change white blood cell count improved to 11,000. Patient had partial nephrectomy in the past for carcinoma. Urology is following the patient because of new mass in the kidney 12/15/2020 Patient is presently on FiO2 of 50% which is up from yesterday his overall anasarca is better lungs diminished on exam. Patient is both on propofol and f entanyl for sedation remains on ventilator support has good urine output continue to hold hemodialysis. 12/16/2020 Patient is in the MICU. Currently on mechanical ventilator and sedated. FiO2 40% today. Patient has been afebrile. Urine output is adequate. Currently being continued Lasix drip due to anasarca.. Creatinine level is 2.13 today. Nephrology and pulmonary is on board. Laboratory data showed WBC 15.8, hemoglobin 14.8 and lymphocytes 0.5 BUN 120 and creatinine 2.13. Antibiotics in the form of meropenem. Continue IV steroids and updrafts.. Chest x-ray showed chronic parenchymal changes and cardiomegaly with persistent bilateral multifocal and confluent opacities consistent with COVID-19 infection. 12/17/2020 Patient is currently in MICU and remained mechanical ventilator. Assist control with FiO2 50% and PEEP of 8. Patient is being continued IV Lasix and antibiotics in the form of meropenem. Sputum cultures grew Anamaria albicans. Patient was started on Eraxis as per ID recommendations. Otherwise laboratory showed WBC 16.7, hemoglobin 13.6 and platelets 245 neutrophils 14.0 BUN 129 and creatinine 1.84. Patient does have good urine output. Renal function is improving. Chest x-ray showed chronic parenchymal changes and cardiomegaly with persistent bilateral multifocal and confluent opacities consistent with COVID-19 infection. 12/18/2020 Patient remains on the mechanical ventilator. Assist control tidal volume 400 with FiO2 40% and PEEP of 5. Currently saturating at 94%. Sedation holiday and pulmonary is planning for weaning trials tomorrow.. Chest x-ray showed bilateral posterior infiltrates and small effusion stable. Laboratory data showed WBC 20.2, hemoglobin 14.0 and platelets 311 BUN 128 and creatinine 1.78, blood sugar is controlled. Patient is being continued on antibiotics in the form of meropenem and antifungal. ID is on board. Current medications reviewed. All inpatient medications were reviewed and appropriate changes in these medications as dictated in the interval history and assessment and plan. Objective - Vital Signs Vital signs: Vital Signs Temp 98.1 F 12/18/20 08:00 Pulse 82 12/18/20 10:00 Resp 22 12/18/20 10:00 BP 136/99 12/18/20 10:00 Pulse Ox 95 12/18/20 10:00 Intake & Output 12/17/20 12/18/20 12/18/20 18:59 06:59 18:59 Intake Total 794.196 840.887 190 Output Total 2250 2650 255 Balance -1455.804 -1809.113 -65 Weight 115.666 kg Intake: IV 261 240 60 Sodium Chloride 0.9% 1, 240 240 60 000 ml @ 20 mls/hr IV . Q24H [facility] Rx#:[id number] pressure bag 21 Intake, IV Titration 143.196 150.887 100 Amount propofoL 1,000 mg In 143.196 150.887 100 Empty Bag 1 bag @ Titrate IV .Q0M [facility] Rx#: [id number] Tube Feeding 360 360 30 Other 30 90 Output: Urine 2250 2650 255 Other: Voiding Method Indwelling Catheter Indwelling Catheter Indwelling Catheter ABP, PAP, CO, CI - Last Documented Arterial Blood Pressure 124/55 - Exam PHYSICAL EXAMINATION: GENERAL: Patient is intubated sedated HEENT: Pupils are round and equally reacting to light. EOMI. No scleral icterus. No conjunctival pallor. Normocephalic, atraumatic. No pharyngeal erythema. No thyromegaly. CARDIOVASCULAR: S1 and S2 present. No murmurs, rubs, or gallops. PULMONARY: Sounds and diminished air entry into bilateral lung tavarez ABDOMEN: Soft, nontender, nondistended, normoactive bowel sounds. No palpable or ganomegaly. MUSCULOSKELETAL: No joint swelling or deformity. EXTREMITIES: No cyanosis, clubbing, or pedal edema. NEUROLOGICAL: Sedated. SKIN: No rashes. - Labs CBC & Chem 7: 12/20/20 04:49 12/20/20 04:49 Labs: Abnormal Lab Results - Last 24 Hours (Table) 12/17/20 12/17/20 12/17/20 Range/Units 15:55 20:12 23:18 WBC (3.8-10.6) k/uL ABG pH (7.35-7.45) ABG pCO2 (35-45) mmHg ABG HCO3 (21-25) mmol/L ABG Total CO2 (19-24) mmol/L Carbon Dioxide (22-30) mmol/L BUN (9-20) mg/dL Creatinine (0.66-1.25) mg/dL Glucose (74-99) mg/dL POC Glucose (mg/dL) 159 H 206 H 196 H (75-99) mg/dL 12/18/20 12/18/20 12/18/20 Range/Units 03:42 03:59 03:59 WBC 20.2 H (3.8-10.6) k/uL ABG pH (7.35-7.45) ABG pCO2 (35-45) mmHg ABG HCO3 (21-25) mmol/L ABG Total CO2 (19-24) mmol/L Carbon Dioxide 35 H (22-30) mmol/L BUN 128 H* (9-20) mg/dL Creatinine 1.78 H (0.66-1.25) mg/dL Glucose 138 H (74-99) mg/dL POC Glucose (mg/dL) 157 H (75-99) mg/dL 12/18/20 Range/Units 05:19 WBC (3.8-10.6) k/uL ABG pH 7.48 H (7.35-7.45) ABG pCO2 49 H (35-45) mmHg ABG HCO3 37 H (21-25) mmol/L ABG Total CO2 39 H (19-24) mmol/L Carbon Dioxide (22-30) mmol/L BUN (9-20) mg/dL Creatinine (0.66-1.25) mg/dL Glucose (74-99) mg/dL POC Glucose (mg/dL) (75-99) mg/dL Assessment and Plan Assessment: - septic shock: likely due to secondary bacterial pneumonia, patient's (a positive for E. coli which is ESBL E. coli patient is presently on meropenem. Shock improved patient is off pressor support as mentioned above patient is on ventilatory support. Patient most probably has a post Covid bacterial pneumonia. COVID-19 PCR is negative on this hospitalization, pulmonary and infectious disease are following the patient. Antifungal agents were added with sputum culture showing Anamaria albicans. -Acute hypoxic respiratory failure secondary to septic shock patient is presently not on norepinephrine -Hyperkalemia secondary to acute renal failure. Improved now hemodialysis is being held -Acute renal failure secondary to acute tubular necrosis from septic shock, started on hemodialysis, urine output is improving. off HD now. -Volume overload secondary to renal failure , patient is urinating now hemodialysis is being held patient volume status did improve compared to yesterday -elevated d-dimer secondary to pneumonia . -Acute on chronic hypoxic respiratory failure secondary to pneumonia. -History of asbestosis -Chronic kidney disease stage II to 3. Probable diabetic nephropathy --History of DVT in the past -Type 2 diabetes mellitus: Well controlled, continue with present regimen of long-acting insulin and short-acting insulin every 6 hours. -Hypertension -Sleep apnea -Diabetic peripheral neuropathy -History of renal mass. Status post nephrectomy in 2019. -DVT prophylaxis with subcutaneous heparin Time with Patient: Greater than 30
[2020-12-21] MEDS: NOREPINEPHRINE 4 MG in SODIUM CHLORIDE 0.9% 250 ML IV SCH ×7 (00:05→21:54)
[2020-12-21 00:09] LABS: Glucose,Whole Blood 177 mg/dL (75-99)
--- NOTE | 2020-12-21 00:16 | P.PN ---
Subjective Progress Note Date: 12/19/20 Principal diagnosis: secondary bacterial pneumonia and he was recently discharged after he was treated for Covid 19 . Patient is a pleasant 70-year-old male came in with the complaints of shortness of breath on 4 L of oxygen and oxygen saturation is going down to 78%. Patient is comparing of cough with yellowish sputum production. Patient was having high-grade fevers patient denied any dysuria patient denied nausea vomiting. Patient was discharged from the hospital after 3 week treatment for Covid 19 patient was discharged earlier this month. Patient came back positive again on of this month patient did receive both Covid vaccines. Patient's creatinine at the time of discharge is around 1.3 presently around 1.3. Patient is bit hyponatremic. Patient at a chest x-ray which is showing bilateral infiltrates consistent with Covid 19, although infiltrates are mildly better compared to the previous x-rays. 12/05/2020 Patient continues to have fevers is pretty status appears to have worsened a bit and patient is an 5 L of oxygen is still bit hypoxic and patient is in mild respiratory distress. Patient is being treated for secondary bacterial pneumonia. Repeat Covid 19 PCR is negative now. Patient blood sugars are well controlled. Dec 09 2020 Patient respiratory status worsened patient went into septic shock was subsequently transferred to intensive care unit with sputum cultures are showing ESBL E. coli patient was started on meropenem. Patient's ABGs consistent with the acidosis and both hypoxic as well as hypercapnic respiratory failure patient is presently on ventilator support. Assist control ventilation with PEEP of 10 have out of 90% set up respiratory rate of around 20 and tidal volume of 550. Patient is also numb nor- epinephrine. Patient is in septic shock. has very minimal urine output patient appears to have acute to the necrosis and patient has elevated creatinine of 2.15. Patient's potassium is elevated to 6.4 received Late has come down to 5.8. Patient is on the propofol sedation patient is also receiving systemic steroids. Atenolol and the Norvasc will be discontinued 12/10/2020 Patient remains on ventilator support with set up respiratory to for 30, tidal volume of 550, PEEP of 10 and FiO2 of 70% patient was on FiO2 of 100% yesterday. Patient remains on the propofol and Nimbex. Patient is off the levo fed. Remains on meropenem since the December 08. 12/11/2020 Patient remains acidotic with hypercapnia, respiratory is doses. Patient remains on the same and settings as yesterday. Patient is hypokalemic nephrology is managing this. Patient creatinine remained stable at 2.2. Patient's blood sugars are high will add short-acting insulin every 6 hours patient is receiving OG tube feedings, Nepro. Patient is back on norepinephrine. His leukocytosis although can you to improve. 12/12/2020 Visit acidosis improved patient remains in the same symptoms when settings as yesterday. Patient was started on hemodialysis because of persistent hyperkalemia volume overload poor urine output. Patient chest x-ray showing pulmonary edema patient has extensive anasarca. Patient is presently not on norepinephrine. Patient is on IV Lasix drip. 12/13/2020 and patient appears to have improvement in overall clinical condition patient had hemodialysis with removal of around 2.5 L today patient started urinating again. Patient has good urine output today. Patient still has peripheral edema patient FiO2 requirements have come down and patient is presently on 60% FiO2 did patient acidosis improved and pH is close to normal Review of systems: Unable to obtain due to his clinical condition. Potassium is 5.5. 12/14/2020 Patient remains intubated patient is presently on 45% FiO2. Patient is urinating well around 200 mL per hour patient volume status improved respiratory status improved 18 is improving patient hemodialysis is on hold is on IV Lasix drip. Patient is presently not on pressor support. Chest x-ray still showing diffuse bilateral infiltrates without any significant change white blood cell count improved to 11,000. Patient had partial nephrectomy in the past for carcinoma. Urology is following the patient because of new mass in the kidney 12/15/2020 Patient is presently on FiO2 of 50% which is up from yesterday his overall anasarca is better lungs diminished on exam. Patient is both on propofol and f entanyl for sedation remains on ventilator support has good urine output continue to hold hemodialysis. 12/16/2020 Patient is in the MICU. Currently on mechanical ventilator and sedated. FiO2 40% today. Patient has been afebrile. Urine output is adequate. Currently being continued Lasix drip due to anasarca.. Creatinine level is 2.13 today. Nephrology and pulmonary is on board. Laboratory data showed WBC 15.8, hemoglobin 14.8 and lymphocytes 0.5 BUN 120 and creatinine 2.13. Antibiotics in the form of meropenem. Continue IV steroids and updrafts.. Chest x-ray showed chronic parenchymal changes and cardiomegaly with persistent bilateral multifocal and confluent opacities consistent with COVID-19 infection. 12/17/2020 Patient is currently in MICU and remained mechanical ventilator. Assist control with FiO2 50% and PEEP of 8. Patient is being continued IV Lasix and antibiotics in the form of meropenem. Sputum cultures grew Anamaria albicans. Patient was started on Eraxis as per ID recommendations. Otherwise laboratory showed WBC 16.7, hemoglobin 13.6 and platelets 245 neutrophils 14.0 BUN 129 and creatinine 1.84. Patient does have good urine output. Renal function is improving. Chest x-ray showed chronic parenchymal changes and cardiomegaly with persistent bilateral multifocal and confluent opacities consistent with COVID-19 infection. 12/18/2020 Patient remains on the mechanical ventilator. Assist control tidal volume 400 with FiO2 40% and PEEP of 5. Currently saturating at 94%. Sedation holiday and pulmonary is planning for weaning trials tomorrow.. Chest x-ray showed bilateral posterior infiltrates and small effusion stable. Laboratory data showed WBC 20.2, hemoglobin 14.0 and platelets 311 BUN 128 and creatinine 1.78, blood sugar is controlled. Patient is being continued on antibiotics in the form of meropenem and antifungal. ID is on board. 12/19/2020 patient is currently in MICU. Had a weaning trial today with pressure support. After about 20 minutes patient developed respiratory distress and tachycardic and tachypneic and switched back to assist control. Already patient will be continued meropenem and antifungal agents. Chest x-ray showed parenchymal changes and opacities with cardiomegaly interstitial edema. WBC count is trending up to 31.5 today. Hemoglobin 14.6 and platelets 300 potassium 4.5 chloride 104 bicarb is 34 BUN 123 creatinine 1.48 blood sugar is 189 pulmonary, ID and nephrology is on board. Patient is off hemodialysis. Current medications reviewed. All inpatient medications were reviewed and appropriate changes in these medications as dictated in the interval history and assessment and plan. Objective - Vital Signs Vital signs: Vital Signs Temp 100.9 F H 12/19/20 16:00 Pulse 80 12/19/20 18:00 Resp 21 06/10/21 18:00 BP 97/56 12/19/20 18:00 Pulse Ox 97 12/19/20 18:00 Intake & Output 12/19/20 12/19/20 12/20/20 06:59 18:59 06:59 Intake Total 570.497 2785.004 Output Total 2245 1185 Balance -1406.057 -131.996 Intake: IV 240 240 Sodium Chloride 0.9% 1, 240 240 000 ml @ 20 mls/hr IV . Q24H [facility] Rx#:[id number] Intake, IV Titration 178.943 133.004 Amount Norepinephrine 4 mg In 26.295 Sodium Chloride 0.9% 250 ml @ 0.05 MCG/KG/MIN 22. 034 mls/hr IV .[id number] [facility] Rx#:[id number] propofoL 1,000 mg In 178.943 106.709 Empty Bag 1 bag @ Titrate IV .Q0M [facility] Rx#: [id number] Tube Feeding 330 300 Other 90 380 Output: Urine 2245 1110 Stool 75 Other: Voiding Method Indwelling Catheter Indwelling Catheter ABP, PAP, CO, CI - Last Documented Arterial Blood Pressure 124/55 - Exam PHYSICAL EXAMINATION: GENERAL: Patient is intubated sedated HEENT: Pupils are round and equally reacting to light. EOMI. No scleral icterus. No conjunctival pallor. Normocephalic, atraumatic. No pharyngeal erythema. No thyromegaly. CARDIOVASCULAR: S1 and S2 present. No murmurs, rubs, or gallops. PULMONARY: Sounds and diminished air entry into bilateral lung tavarez ABDOMEN: Soft, nontender, nondistended, normoactive bowel sounds. No palpable organomegaly. MUSCULOSKELETAL: No joint swelling or deformity. EXTREMITIES: No cyanosis, clubbing, or pedal edema. NEUROLOGICAL: Sedated. SKIN: No rashes. - Labs CBC & Chem 7: 12/20/20 04:49 12/20/20 04:49 Labs: Abnormal Lab Results - Last 24 Hours (Table) 12/18/20 12/19/20 12/19/20 Range/Units 20:34 00:16 04:17 WBC (3.8-10.6) k/uL Neutrophils # (1.3-7.7) k/uL Lymphocytes # (1.0-4.8) k/uL Monocytes # (0-1.0) k/uL ABG pH (7.35-7.45) ABG pCO2 (35-45) mmHg ABG HCO3 (21-25) mmol/L ABG Total CO2 (19-24) mmol/L Sodium (137-145) mmol/L Carbon Dioxide (22-30) mmol/L BUN (9-20) mg/dL Creatinine (0.66-1.25) mg/dL Glucose (74-99) mg/dL POC Glucose (mg/dL) 245 H 197 H 180 H (75-99) mg/dL Total Protein (6.3-8.2) g/dL Albumin (3.5-5.0) g/dL 12/19/20 12/19/20 12/19/20 Range/Units 04:21 04:21 05:20 WBC 31.5 H (3.8-10.6) k/uL Neutrophils # 29.3 H (1.3-7.7) k/uL Lymphocytes # 0.3 L (1.0-4.8) k/uL Monocytes # 1.4 H (0-1.0) k/uL ABG pH 7.47 H (7.35-7.45) ABG pCO2 52 H (35-45) mmHg ABG HCO3 38 H (21-25) mmol/L ABG Total CO2 40 H (19-24) mmol/L Sodium 146 H (137-145) mmol/L Carbon Dioxide 34 H (22-30) mmol/L BUN 123 H* (9-20) mg/dL Creatinine 1.48 H (0.66-1.25) mg/dL Glucose 189 H (74-99) mg/dL POC Glucose (mg/dL) (75-99) mg/dL Total Protein 5.8 L (6.3-8.2) g/dL Albumin 3.2 L (3.5-5.0) g/dL 12/19/20 12/19/20 12/19/20 Range/Units 08:19 11:22 15:48 WBC (3.8-10.6) k/uL Neutrophils # (1.3-7.7) k/uL Lymphocytes # (1.0-4.8) k/uL Monocytes # (0-1.0) k/uL ABG pH (7.35-7.45) ABG pCO2 (35-45) mmHg ABG HCO3 (21-25) mmol/L ABG Total CO2 (19-24) mmol/L Sodium (137-145) mmol/L Carbon Dioxide (22-30) mmol/L BUN (9-20) mg/dL Creatinine (0.66-1.25) mg/dL Glucose (74-99) mg/dL POC Glucose (mg/dL) 166 H 179 H 153 H (75-99) mg/dL Total Protein (6.3-8.2) g/dL Albumin (3.5-5.0) g/dL Assessment and Plan Assessment: - septic shock: likely due to secondary bacterial pneumonia, patient's (a positive for E. coli which is ESBL E. coli patient is presently on meropenem. Shock improved patient is off pressor support as mentioned above patient is on ventilatory support. Patient most probably has a post Covid bacterial pneumonia. COVID-19 PCR is negative on this hospitalization, pulmonary and infectious disease are following the patient. Antifungal agents were added with sputum culture showing Anamaria albicans. -Acute hypoxic respiratory failure secondary to septic shock patient is presently not on norepinephrine -Hyperkalemia secondary to acute renal failure. Improved now hemodialysis is being held -Acute renal failure secondary to acute tubular necrosis from septic shock, started on hemodialysis, urine output is improving. off HD now. -Volume overload secondary to renal failure , patient is urinating now hemodialysis is being held patient volume status did improve compared to yesterday -elevated d-dimer secondary to pneumonia . -Acute on chronic hypoxic respiratory failure secondary to pneumonia. -History of asbestosis -Chronic kidney disease stage II to 3. Probable diabetic nephropathy --History of DVT in the past -Type 2 diabetes mellitus: Well controlled, continue with present regimen of long-acting insulin and short-acting insulin every 6 hours. -Hypertension -Sleep apnea -Diabetic peripheral neuropathy -History of renal mass. Status post nephrectomy in 2019. -DVT prophylaxis with subcutaneous heparin Time with Patient: Greater than 30
--- NOTE | 2020-12-21 00:22 | P.PN ---
Subjective Progress Note Date: 12/20/20 Principal diagnosis: secondary bacterial pneumonia and he was recently discharged after he was treated for Covid 19 . Patient is a pleasant 70-year-old male came in with the complaints of shortness of breath on 4 L of oxygen and oxygen saturation is going down to 78%. Patient is comparing of cough with yellowish sputum production. Patient was having high-grade fevers patient denied any dysuria patient denied nausea vomiting. Patient was discharged from the hospital after 3 week treatment for Covid 19 patient was discharged earlier this month. Patient came back positive again on of this month patient did receive both Covid vaccines. Patient's creatinine at the time of discharge is around 1.3 presently around 1.3. Patient is bit hyponatremic. Patient at a chest x-ray which is showing bilateral infiltrates consistent with Covid 19, although infiltrates are mildly better compared to the previous x-rays. 12/05/2020 Patient continues to have fevers is pretty status appears to have worsened a bit and patient is an 5 L of oxygen is still bit hypoxic and patient is in mild respiratory distress. Patient is being treated for secondary bacterial pneumonia. Repeat Covid 19 PCR is negative now. Patient blood sugars are well controlled. Dec 09 2020 Patient respiratory status worsened patient went into septic shock was subsequently transferred to intensive care unit with sputum cultures are showing ESBL E. coli patient was started on meropenem. Patient's ABGs consistent with the acidosis and both hypoxic as well as hypercapnic respiratory failure patient is presently on ventilator support. Assist control ventilation with PEEP of 10 have out of 90% set up respiratory rate of around 20 and tidal volume of 550. Patient is also numb nor- epinephrine. Patient is in septic shock. has very minimal urine output patient appears to have acute to the necrosis and patient has elevated creatinine of 2.15. Patient's potassium is elevated to 6.4 received Late has come down to 5.8. Patient is on the propofol sedation patient is also receiving systemic steroids. Atenolol and the Norvasc will be discontinued 12/10/2020 Patient remains on ventilator support with set up respiratory to for 30, tidal volume of 550, PEEP of 10 and FiO2 of 70% patient was on FiO2 of 100% yesterday. Patient remains on the propofol and Nimbex. Patient is off the levo fed. Remains on meropenem since the December 08. 12/11/2020 Patient remains acidotic with hypercapnia, respiratory is doses. Patient remains on the same and settings as yesterday. Patient is hypokalemic nephrology is managing this. Patient creatinine remained stable at 2.2. Patient's blood sugars are high will add short-acting insulin every 6 hours patient is receiving OG tube feedings, Nepro. Patient is back on norepinephrine. His leukocytosis although can you to improve. 12/12/2020 Visit acidosis improved patient remains in the same symptoms when settings as yesterday. Patient was started on hemodialysis because of persistent hyperkalemia volume overload poor urine output. Patient chest x-ray showing pulmonary edema patient has extensive anasarca. Patient is presently not on norepinephrine. Patient is on IV Lasix drip. 12/13/2020 and patient appears to have improvement in overall clinical condition patient had hemodialysis with removal of around 2.5 L today patient started urinating again. Patient has good urine output today. Patient still has peripheral edema patient FiO2 requirements have come down and patient is presently on 60% FiO2 did patient acidosis improved and pH is close to normal Review of systems: Unable to obtain due to his clinical condition. Potassium is 5.5. 12/14/2020 Patient remains intubated patient is presently on 45% FiO2. Patient is urinating well around 200 mL per hour patient volume status improved respiratory status improved 18 is improving patient hemodialysis is on hold is on IV Lasix drip. Patient is presently not on pressor support. Chest x-ray still showing diffuse bilateral infiltrates without any significant change white blood cell count improved to 11,000. Patient had partial nephrectomy in the past for carcinoma. Urology is following the patient because of new mass in the kidney 12/15/2020 Patient is presently on FiO2 of 50% which is up from yesterday his overall anasarca is better lungs diminished on exam. Patient is both on propofol and f entanyl for sedation remains on ventilator support has good urine output continue to hold hemodialysis. 12/16/2020 Patient is in the MICU. Currently on mechanical ventilator and sedated. FiO2 40% today. Patient has been afebrile. Urine output is adequate. Currently being continued Lasix drip due to anasarca.. Creatinine level is 2.13 today. Nephrology and pulmonary is on board. Laboratory data showed WBC 15.8, hemoglobin 14.8 and lymphocytes 0.5 BUN 120 and creatinine 2.13. Antibiotics in the form of meropenem. Continue IV steroids and updrafts.. Chest x-ray showed chronic parenchymal changes and cardiomegaly with persistent bilateral multifocal and confluent opacities consistent with COVID-19 infection. 12/17/2020 Patient is currently in MICU and remained mechanical ventilator. Assist control with FiO2 50% and PEEP of 8. Patient is being continued IV Lasix and antibiotics in the form of meropenem. Sputum cultures grew Anamaria albicans. Patient was started on Eraxis as per ID recommendations. Otherwise laboratory showed WBC 16.7, hemoglobin 13.6 and platelets 245 neutrophils 14.0 BUN 129 and creatinine 1.84. Patient does have good urine output. Renal function is improving. Chest x-ray showed chronic parenchymal changes and cardiomegaly with persistent bilateral multifocal and confluent opacities consistent with COVID-19 infection. 12/18/2020 Patient remains on the mechanical ventilator. Assist control tidal volume 400 with FiO2 40% and PEEP of 5. Currently saturating at 94%. Sedation holiday and pulmonary is planning for weaning trials tomorrow.. Chest x-ray showed bilateral posterior infiltrates and small effusion stable. Laboratory data showed WBC 20.2, hemoglobin 14.0 and platelets 311 BUN 128 and creatinine 1.78, blood sugar is controlled. Patient is being continued on antibiotics in the form of meropenem and antifungal. ID is on board. 12/19/2020 patient is currently in MICU. Had a weaning trial today with pressure support. After about 20 minutes patient developed respiratory distress and tachycardic and tachypneic and switched back to assist control. Already patient will be continued meropenem and antifungal agents. Chest x-ray showed parenchymal changes and opacities with cardiomegaly interstitial edema. WBC count is trending up to 31.5 today. Hemoglobin 14.6 and platelets 300 potassium 4.5 chloride 104 bicarb is 34 BUN 123 creatinine 1.48 blood sugar is 189 pulmonary, ID and nephrology is on board. Patient is off hemodialysis. Current medications reviewed. 12/20/2020 patient is on mechanical ventilator. Off sedation. Able to open his eyes intermittently. Currently on assist control with tidal volume of 500 and PEEP of 5. FiO2 50%. Repeat blood cultures have been negative. WBC count is trending up to 54.5 today. Antibiotics were changed to ceftriaxone and Flagyl. And also on antifungal agents. ID is following. Chest x-ray showed bibasilar infiltrates present. Lab data showed WBC 54.5, hemoglobin 14.1 and platelets 323 sodium 145 potassium 4.5 chloride 105 BUN 133 creatinine 1.93 and blood sugar is 232 patient is being continued on methylprednisolone 40 mg IV every 12 and duo nebs and Symbicort also on Lasix 40 mg IV twice daily., Pulmonary, nephrology and ID is on board. All inpatient medications were reviewed and appropriate changes in these medications as dictated in the interval history and assessment and plan. Objective - Vital Signs Vital signs: Vital Signs Temp 99.3 F 12/20/20 16:00 Pulse 77 12/20/20 16:00 Resp 21 12/20/20 16:00 BP 93/46 12/20/20 16:00 Pulse Ox 97 12/20/20 16:00 Intake & Output 12/19/20 12/20/20 12/20/20 18:59 06:59 18:59 Intake Total 4014.856 2798.709 1061.671 Output Total 1185 1264 815 Balance -131.996 828.709 246.671 Weight 115.666 kg Intake: IV 240 240 200 Sodium Chloride 0.9% 1, 240 240 200 000 ml @ 20 mls/hr IV . Q24H [facility] Rx#:[id number] Intake, IV Titration 133.004 892.709 221.671 Amount Ceftaroline Fosamil 600 500 mg In Sodium Chloride 0.9 % 250 ml @ 250 mls/hr IVPB Q12HR [facility] Rx#: [id number] Insulin Regular 100 unit 27.506 In Sodium Chloride 0.9% 100 ml @ Per Protocol IV .Q0M [facility] Rx#:[id number] Norepinephrine 4 mg In 26.295 227.705 173.924 Sodium Chloride 0.9% 250 ml @ 0.05 MCG/KG/MIN 22. 034 mls/hr IV .[id number] [facility] Rx#:[id number] propofoL 1,000 mg In 106.709 165.004 20.241 Empty Bag 1 bag @ Titrate IV .Q0M [facility] Rx#: [id number] Tube Feeding 300 360 240 Other 380 600 400 Output: Urine 1110 1264 815 Stool 75 Other: Voiding Method Indwelling Catheter Indwelling Catheter Indwelling Catheter # Bowel Movements 1 1 ABP, PAP, CO, CI - Last Documented Arterial Blood Pressure 124/55 - Exam PHYSICAL EXAMINATION: GENERAL: Patient is intubated sedated HEENT: Pupils are round and equally reacting to light. EOMI. No scleral icterus. No conjunctival pallor. Normocephalic, atraumatic. No pharyngeal erythema. No thyromegaly. CARDIOVASCULAR: S1 and S2 present. No murmurs, rubs, or gallops. PULMONARY: Sounds and diminished air entry into bilateral lung tavarez ABDOMEN: Soft, nontender, nondistended, normoactive bowel sounds. No palpable organomegaly. MUSCULOSKELETAL: No joint swelling or deformity. EXTREMITIES: No cyanosis, clubbing, or pedal edema. NEUROLOGICAL: Sedated. SKIN: No rashes. - Labs CBC & Chem 7: 12/20/20 04:49 12/20/20 04:49 Labs: Abnormal Lab Results - Last 24 Hours (Table) 12/19/20 12/20/20 12/20/20 Range/Units 19:43 00:14 04:14 WBC (3.8-10.6) k/uL MCHC (31.0-37.0) g/dL Neutrophils # (1.3-7.7) k/uL Lymphocytes # (1.0-4.8) k/uL Monocytes # (0-1.0) k/uL Basophils # (0-0.2) k/uL ABG pCO2 (35-45) mmHg ABG pO2 (83-108) mmHg ABG HCO3 (21-25) mmol/L ABG Total CO2 (19-24) mmol/L BUN (9-20) mg/dL Creatinine (0.66-1.25) mg/dL Glucose (74-99) mg/dL POC Glucose (mg/dL) 229 H 228 H 203 H (75-99) mg/dL C-Reactive Protein (<1.0) mg/dL Total Protein (6.3-8.2) g/dL Albumin (3.5-5.0) g/dL Procalcitonin (0.02-0.09) ng/mL 12/20/20 12/20/20 12/20/20 Range/Units 04:49 04:49 04:49 WBC 54.5 H* (3.8-10.6) k/uL MCHC 30.5 L (31.0-37.0) g/dL Neutrophils # 51.3 H (1.3-7.7) k/uL Lymphocytes # 0.1 L (1.0-4.8) k/uL Monocytes # 2.0 H (0-1.0) k/uL Basophils # 0.7 H (0-0.2) k/uL ABG pCO2 (35-45) mmHg ABG pO2 (83-108) mmHg ABG HCO3 (21-25) mmol/L ABG Total CO2 (19-24) mmol/L BUN 133 H* (9-20) mg/dL Creatinine 1.93 H (0.66-1.25) mg/dL Glucose 232 H (74-99) mg/dL POC Glucose (mg/dL) (75-99) mg/dL C-Reactive Protein 26.9 H (<1.0) mg/dL Total Protein 5.0 L (6.3-8.2) g/dL Albumin 2.6 L (3.5-5.0) g/dL Procalcitonin 1.41 H (0.02-0.09) ng/mL 12/20/20 12/20/20 12/20/20 Range/Units 04:57 08:33 10:04 WBC (3.8-10.6) k/uL MCHC (31.0-37.0) g/dL Neutrophils # (1.3-7.7) k/uL Lymphocytes # (1.0-4.8) k/uL Monocytes # (0-1.0) k/uL Basophils # (0-0.2) k/uL ABG pCO2 48 H (35-45) mmHg ABG pO2 73 L (83-108) mmHg ABG HCO3 33 H (21-25) mmol/L ABG Total CO2 35 H (19-24) mmol/L BUN (9-20) mg/dL Creatinine (0.66-1.25) mg/dL Glucose (74-99) mg/dL POC Glucose (mg/dL) 253 H 277 H (75-99) mg/dL C-Reactive Protein (<1.0) mg/dL Total Protein (6.3-8.2) g/dL Albumin (3.5-5.0) g/dL Procalcitonin (0.02-0.09) ng/mL 12/20/20 12/20/20 12/20/20 Range/Units 10:36 11:36 12:47 WBC (3.8-10.6) k/uL MCHC (31.0-37.0) g/dL Neutrophils # (1.3-7.7) k/uL Lymphocytes # (1.0-4.8) k/uL Monocytes # (0-1.0) k/uL Basophils # (0-0.2) k/uL ABG pCO2 (35-45) mmHg ABG pO2 (83-108) mmHg ABG HCO3 (21-25) mmol/L ABG Total CO2 (19-24) mmol/L BUN (9-20) mg/dL Creatinine (0.66-1.25) mg/dL Glucose (74-99) mg/dL POC Glucose (mg/dL) 193 H 117 H 151 H (75-99) mg/dL C-Reactive Protein (<1.0) mg/dL Total Protein (6.3-8.2) g/dL Albumin (3.5-5.0) g/dL Procalcitonin (0.02-0.09) ng/mL 12/20/20 12/20/20 12/20/20 Range/Units 13:40 14:40 15:50 WBC (3.8-10.6) k/uL MCHC (31.0-37.0) g/dL Neutrophils # (1.3-7.7) k/uL Lymphocytes # (1.0-4.8) k/uL Monocytes # (0-1.0) k/uL Basophils # (0-0.2) k/uL ABG pCO2 (35-45) mmHg ABG pO2 (83-108) mmHg ABG HCO3 (21-25) mmol/L ABG Total CO2 (19-24) mmol/L BUN (9-20) mg/dL Creatinine (0.66-1.25) mg/dL Glucose (74-99) mg/dL POC Glucose (mg/dL) 126 H 133 H 162 H (75-99) mg/dL C-Reactive Protein (<1.0) mg/dL Total Protein (6.3-8.2) g/dL Albumin (3.5-5.0) g/dL Procalcitonin (0.02-0.09) ng/mL 12/20/20 Range/Units 16:41 WBC (3.8-10.6) k/uL MCHC (31.0-37.0) g/dL Neutrophils # (1.3-7.7) k/uL Lymphocytes # (1.0-4.8) k/uL Monocytes # (0-1.0) k/uL Basophils # (0-0.2) k/uL ABG pCO2 (35-45) mmHg ABG pO2 (83-108) mmHg ABG HCO3 (21-25) mmol/L ABG Total CO2 (19-24) mmol/L BUN (9-20) mg/dL Creatinine (0.66-1.25) mg/dL Glucose (74-99) mg/dL POC Glucose (mg/dL) 155 H (75-99) mg/dL C-Reactive Protein (<1.0) mg/dL Total Protein (6.3-8.2) g/dL Albumin (3.5-5.0) g/dL Procalcitonin (0.02-0.09) ng/mL Assessment and Plan Assessment: - septic shock: likely due to secondary bacterial pneumonia, patient's (a positive for E. coli which is ESBL E. coli. Shock improved patient is off pressor support as mentioned above patient is on ventilatory support. Patient most probably has a post Covid bacterial pneumonia. COVID-19 PCR is negative on this hospitalization, pulmonary and infectious disease are following the patient. Antifungal agents were added with sputum culture showing Anamaria albicans. Due to worsening leukocytosis, CT of abdomen pelvis ordered to rule out any septic source. Antibiotics changed to ceftarolin and Flagyl. -Acute hypoxic respiratory failure secondary to septic shock. patient is presently not on norepinephrine -Hyperkalemia secondary to acute renal failure. Improving. now hemodialysis is being held -Acute renal failure secondary to acute tubular necrosis from septic shock, started on hemodialysis, urine output is improving. off HD now. -Volume overload secondary to renal failure , patient is urinating now hemodialysis is being held patient volume status did improve compared to yesterday -elevated d-dimer secondary to pneumonia . -Acute on chronic hypoxic respiratory failure secondary to pneumonia. -History of asbestosis -Chronic kidney disease stage II to 3. Probable diabetic nephropathy --History of DVT in the past -Type 2 diabetes mellitus: Well controlled, continue with present regimen of long-acting insulin and short-acting insulin every 6 hours. -Hypertension -Sleep apnea -Diabetic peripheral neuropathy -History of renal mass. Status post nephrectomy in 2019. -DVT prophylaxis with subcutaneous heparin Time with Patient: Greater than 30
[2020-12-21] MEDS: metroNIDAZOLE-NS PMX 500 MG in SALINE 1 100ML.BAG IVPB SCH ×4 (00:58→23:59)
[2020-12-21 01:06] LABS: Glucose,Whole Blood 160 mg/dL (75-99)
[2020-12-21 02:14] LABS: Glucose,Whole Blood 171 mg/dL (75-99)
[2020-12-21 03:08] LABS: Glucose,Whole Blood 159 mg/dL (75-99)
[2020-12-21 04:13] LABS: Glucose,Whole Blood 180 mg/dL (75-99)
[2020-12-21 05:15] LABS: ABG HCO3 27 mmol/L (21-25); ABG Oxygen Saturation 94.2 % (94-97); ABG PCO2 45 mmHg (35-45); ABG PH 7.38 (7.35-7.45); ABG PO2 76 mmHg (83-108); ABG TCO2 29 mmol/L (19-24); Allen Test Performed? Yes
[2020-12-21 06:34] LABS: Glucose,Whole Blood 160 mg/dL (75-99)
[2020-12-21 06:37] LABS: HCT 46.8 % (39.0-53.0); HGB 15.1 gm/dL (13.0-17.5); MCH 29.3 pg (25.0-35.0); MCHC 32.3 g/dL (31.0-37.0); MCV 90.8 fL (80.0-100.0); Mean Platelet Volume 8.1; Platelet Count 258 k/uL (150-450); RBC 5.15 m/uL (4.30-5.90); RDW 14.7 % (11.5-15.5); WBC 47.1 k/uL (3.8-10.6)
[2020-12-21 07:16] LABS: Calcium 8.2 mg/dL (8.4-10.2)
[2020-12-21 07:31] LABS: Potassium 5.3 mmol/L (3.5-5.1)
[2020-12-21 08:04] LABS: Glucose,Whole Blood 134 mg/dL (75-99)
[2020-12-21] MEDS: SYMBICORT 160-4.5 MCG INHALER INHALATION SCH ×2 (08:05→21:02)
[2020-12-21] MEDS: ALBUTEROL HFA INHALER INHALATION PRN ×4 (08:05→21:02)
--- NOTE | 2020-12-21 08:24 | P.PN ---
Subjective Patient is seen in follow-up for acute kidney injury. Renal function worsening. Maintained on IV Lasix. Urine output has dropped. Now about 20-30 mL an hour. Remains on Levophed. Intubated. Receiving tube feeding. Vital signs are stable. HEENT: Intubated. LUNGS: Breath sounds decreased. HEART: Rate and Rhythm are regular. ABDOMEN: Soft, no distention. EXTREMITITES: Trace edema. Objective - Vital Signs Vital signs: Vital Signs Temp 98.7 F 12/21/20 00:00 Pulse 91 12/21/20 07:00 Resp 22 12/21/20 07:00 BP 109/74 12/21/20 07:00 Pulse Ox 93 L 12/21/20 07:00 Intake & Output 12/20/20 12/21/20 12/21/20 18:59 06:59 18:59 Intake Total 3203.277 5628.488 100 Output Total 868 395 30 Balance 759.104 8420.488 70 Weight 115.666 kg Intake: IV 240 240 20 Sodium Chloride 0.9% 1, 240 240 20 000 ml @ 20 mls/hr IV . Q24H [facility] Rx#:[id number] Intake, IV Titration 299.374 799.488 Amount Insulin Regular 100 unit 40.720 37.488 In Sodium Chloride 0.9% 100 ml @ Per Protocol IV .Q0M [facility] Rx#:[id number] Norepinephrine 4 mg In 238.413 762.000 Sodium Chloride 0.9% 250 ml @ 0.05 MCG/KG/MIN 22. 034 mls/hr IV .[id number] [facility] Rx#:[id number] propofoL 1,000 mg In 20.241 Empty Bag 1 bag @ Titrate IV .Q0M [facility] Rx#: [id number] Tube Feeding 300 360 30 Other 500 600 50 Output: Urine 868 395 30 Other: Voiding Method Indwelling Catheter Indwelling Catheter # Bowel Movements 1 ABP, PAP, CO, CI - Last Documented Arterial Blood Pressure 124/55 - Labs CBC & Chem 7: 12/21/20 06:15 12/21/20 06:15 Labs: Abnormal Lab Results - Last 24 Hours (Table) 12/20/20 12/20/20 12/20/20 Range/Units 04:49 04:49 08:33 WBC (3.8-10.6) k/uL Neutrophils # 51.3 H (1.3-7.7) k/uL Lymphocytes # 0.1 L (1.0-4.8) k/uL Monocytes # 2.0 H (0-1.0) k/uL Basophils # 0.7 H (0-0.2) k/uL ABG pO2 (83-108) mmHg ABG HCO3 (21-25) mmol/L ABG Total CO2 (19-24) mmol/L Potassium (3.5-5.1) mmol/L Chloride (98-107) mmol/L BUN (9-20) mg/dL Creatinine (0.66-1.25) mg/dL Glucose (74-99) mg/dL POC Glucose (mg/dL) 253 H (75-99) mg/dL Calcium (8.4-10.2) mg/dL Procalcitonin 1.41 H (0.02-0.09) ng/mL C. difficile (EIA) Intrp (Negative) 12/20/20 12/20/20 12/20/20 Range/Units 10:04 10:36 11:36 WBC (3.8-10.6) k/uL Neutrophils # (1.3-7.7) k/uL Lymphocytes # (1.0-4.8) k/uL Monocytes # (0-1.0) k/uL Basophils # (0-0.2) k/uL ABG pO2 (83-108) mmHg ABG HCO3 (21-25) mmol/L ABG Total CO2 (19-24) mmol/L Potassium (3.5-5.1) mmol/L Chloride (98-107) mmol/L BUN (9-20) mg/dL Creatinine (0.66-1.25) mg/dL Glucose (74-99) mg/dL POC Glucose (mg/dL) 277 H 193 H 117 H (75-99) mg/dL Calcium (8.4-10.2) mg/dL Procalcitonin (0.02-0.09) ng/mL C. difficile (EIA) Intrp (Negative) 12/20/20 12/20/20 12/20/20 Range/Units 12:47 13:40 14:40 WBC (3.8-10.6) k/uL Neutrophils # (1.3-7.7) k/uL Lymphocytes # (1.0-4.8) k/uL Monocytes # (0-1.0) k/uL Basophils # (0-0.2) k/uL ABG pO2 (83-108) mmHg ABG HCO3 (21-25) mmol/L ABG Total CO2 (19-24) mmol/L Potassium (3.5-5.1) mmol/L Chloride (98-107) mmol/L BUN (9-20) mg/dL Creatinine (0.66-1.25) mg/dL Glucose (74-99) mg/dL POC Glucose (mg/dL) 151 H 126 H 133 H (75-99) mg/dL Calcium (8.4-10.2) mg/dL Procalcitonin (0.02-0.09) ng/mL C. difficile (EIA) Intrp (Negative) 12/20/20 12/20/20 12/20/20 Range/Units 15:50 16:41 17:00 WBC (3.8-10.6) k/uL Neutrophils # (1.3-7.7) k/uL Lymphocytes # (1.0-4.8) k/uL Monocytes # (0-1.0) k/uL Basophils # (0-0.2) k/uL ABG pO2 (83-108) mmHg ABG HCO3 (21-25) mmol/L ABG Total CO2 (19-24) mmol/L Potassium (3.5-5.1) mmol/L Chloride (98-107) mmol/L BUN (9-20) mg/dL Creatinine (0.66-1.25) mg/dL Glucose (74-99) mg/dL POC Glucose (mg/dL) 162 H 155 H (75-99) mg/dL Calcium (8.4-10.2) mg/dL Procalcitonin (0.02-0.09) ng/mL C. difficile (EIA) Intrp Positive A (Negative) 12/20/20 12/20/20 12/20/20 Range/Units 17:43 18:43 20:38 WBC (3.8-10.6) k/uL Neutrophils # (1.3-7.7) k/uL Lymphocytes # (1.0-4.8) k/uL Monocytes # (0-1.0) k/uL Basophils # (0-0.2) k/uL ABG pO2 (83-108) mmHg ABG HCO3 (21-25) mmol/L ABG Total CO2 (19-24) mmol/L Potassium (3.5-5.1) mmol/L Chloride (98-107) mmol/L BUN (9-20) mg/dL Creatinine (0.66-1.25) mg/dL Glucose (74-99) mg/dL POC Glucose (mg/dL) 226 H 174 H 160 H (75-99) mg/dL Calcium (8.4-10.2) mg/dL Procalcitonin (0.02-0.09) ng/mL C. difficile (EIA) Intrp (Negative) 12/20/20 12/20/20 12/21/20 Range/Units 22:15 23:09 00:08 WBC (3.8-10.6) k/uL Neutrophils # (1.3-7.7) k/uL Lymphocytes # (1.0-4.8) k/uL Monocytes # (0-1.0) k/uL Basophils # (0-0.2) k/uL ABG pO2 (83-108) mmHg ABG HCO3 (21-25) mmol/L ABG Total CO2 (19-24) mmol/L Potassium (3.5-5.1) mmol/L Chloride (98-107) mmol/L BUN (9-20) mg/dL Creatinine (0.66-1.25) mg/dL Glucose (74-99) mg/dL POC Glucose (mg/dL) 157 H 151 H 177 H (75-99) mg/dL Calcium (8.4-10.2) mg/dL Procalcitonin (0.02-0.09) ng/mL C. difficile (EIA) Intrp (Negative) 12/21/20 12/21/20 12/21/20 Range/Units 01:05 02:12 03:06 WBC (3.8-10.6) k/uL Neutrophils # (1.3-7.7) k/uL Lymphocytes # (1.0-4.8) k/uL Monocytes # (0-1.0) k/uL Basophils # (0-0.2) k/uL ABG pO2 (83-108) mmHg ABG HCO3 (21-25) mmol/L ABG Total CO2 (19-24) mmol/L Potassium (3.5-5.1) mmol/L Chloride (98-107) mmol/L BUN (9-20) mg/dL Creatinine (0.66-1.25) mg/dL Glucose (74-99) mg/dL POC Glucose (mg/dL) 160 H 171 H 159 H (75-99) mg/dL Calcium (8.4-10.2) mg/dL Procalcitonin (0.02-0.09) ng/mL C. difficile (EIA) Intrp (Negative) 12/21/20 12/21/20 12/21/20 Range/Units 04:11 05:09 06:15 WBC 47.1 H (3.8-10.6) k/uL Neutrophils # (1.3-7.7) k/uL Lymphocytes # (1.0-4.8) k/uL Monocytes # (0-1.0) k/uL Basophils # (0-0.2) k/uL ABG pO2 76 L (83-108) mmHg ABG HCO3 27 H (21-25) mmol/L ABG Total CO2 29 H (19-24) mmol/L Potassium (3.5-5.1) mmol/L Chloride (98-107) mmol/L BUN (9-20) mg/dL Creatinine (0.66-1.25) mg/dL Glucose (74-99) mg/dL POC Glucose (mg/dL) 180 H (75-99) mg/dL Calcium (8.4-10.2) mg/dL Procalcitonin (0.02-0.09) ng/mL C. difficile (EIA) Intrp (Negative) 12/21/20 12/21/20 12/21/20 Range/Units 06:15 06:33 08:03 WBC (3.8-10.6) k/uL Neutrophils # (1.3-7.7) k/uL Lymphocytes # (1.0-4.8) k/uL Monocytes # (0-1.0) k/uL Basophils # (0-0.2) k/uL ABG pO2 (83-108) mmHg ABG HCO3 (21-25) mmol/L ABG Total CO2 (19-24) mmol/L Potassium 5.3 H (3.5-5.1) mmol/L Chloride 108 H (98-107) mmol/L BUN 159 H* (9-20) mg/dL Creatinine 2.69 H (0.66-1.25) mg/dL Glucose 172 H (74-99) mg/dL POC Glucose (mg/dL) 160 H 134 H (75-99) mg/dL Calcium 8.2 L (8.4-10.2) mg/dL Procalcitonin (0.02-0.09) ng/mL C. difficile (EIA) Intrp (Negative) Microbiology - Last 24 Hours (Table) 12/20/20 17:00 Stool Culture - Preliminary Stool 12/20/20 12:00 Urine Culture - Preliminary Urine,Catheterized 12/19/20 16:57 Blood Culture - Preliminary Blood No Growth after 24 hours 12/19/20 20:30 Sputum Culture - Preliminary Sputum Assessment and Plan Plan: Assessment: 1. Acute kidney injury secondary to ATN secondary to sepsis/shock. Status post hemodialysis this admission. Renal function worse today due to hypotension and diuresis - cr 2.69. Nonoliguric. 2. Disproportionally elevated BUN secondary to acute kidney injury and steroids. 3. Volume overload. Improved with diuresis. 4. Acute hypoxic respiratory failure secondary to pneumonia and fluid overload. 5. Pneumonia maintained on antibiotics. Worsening leukocytosis - ID following. 6. History of renal carcinoma status post right partial nephrectomy in November 2019. Urology following. 7. Hypernatremia from free water diuresis and lack of oral water intake. Plan: Stop Lasix. Maintain free water at rate of 50 mL an hour with tube feeding. Avoid nephrotoxins. Wean FiO2 and vasopressors. Continue to monitor renal function and urine output. Continue to assess daily for need for renal replacement therapy.
--- NOTE | 2020-12-21 08:26 | XR ---
EXAMINATION TYPE: XR chest 1V portable DATE OF EXAM: 12/21/2020 Comparison: 12/20/2020 Clinical History: 70 year-old male tube placement Findings: ET tube tip is satisfactory. NG tube courses below the diaphragm. Right IJ CVC tip remains in the rig ht atrium. Heart is enlarged. Patient rotated towards the right. Continued small effusions with inter stitial changes and patchy peripheral opacities. Impression: Redemonstrated cardiomegaly and small effusions. Peripheral opacities persist. This may be seen with atypical pneumonias and interstitial pneumonitis. Clinically correlate.
[2020-12-21] MEDS ORDERED: FUROSEMIDE 10 MG/ML 4 ML VIAL IV SCH (09:00)
[2020-12-21] MEDS: atenoloL 25 MG TAB PO SCH (09:10)
[2020-12-21] MEDS: methylPREDNISolone SOD SUCCI 40 MG/ML 1 ML VIAL IV SCH (09:14)
[2020-12-21] MEDS: SENNOSIDES 8.6 MG TAB PO SCH ×2 (09:14→20:47)
[2020-12-21] MEDS: CHLORHEXIDINE GLUCONATE 15 ML CUP MUCOUS MEM SCH ×2 (09:14→20:44)
[2020-12-21] MEDS: CHOLECALCIFEROL 25 MCG (1000 IU) TABLET PO SCH (09:14)
[2020-12-21] MEDS: ENOXAPARIN 30 MG/0.3 ML SYRINGE SQ SCH ×2 (09:14→20:47)
[2020-12-21] MEDS: PANTOPRAZOLE 40 MG/10 ML VIAL IVP SCH (09:14)
[2020-12-21] MEDS: GABAPENTIN 300 MG CAP PO SCH (09:14)
[2020-12-21] MEDS: ZINC SULFATE 220 MG CAP PO SCH (09:15)
[2020-12-21] MEDS: CEFTAROLINE FOSAMIL 400 MG in SODIUM CHLORIDE 0.9% 250 ML IVPB SCH (09:23)
[2020-12-21] MEDS: ACETAMINOPHEN TAB 325 MG TAB PO PRN (09:52)
--- NOTE | 2020-12-21 10:41 | P.PN ---
Subjective Progress Note Date: 12/21/20 Principal diagnosis: left renal mass Acute kidney injury Fluid overload Acute on chronic hypoxic respiratory failure with worsening status septic shock Bilateral gram-negative pneumonia due to ESBL E. coli Acute kidney injury Hyperkalemia Uncontrolled diabetes and hyperglycemia Pulmonary fibrosis due to prior extensive COVID-19 pneumonia Sepsis and fever of unknown region Generalized weakness and medical debility Asbestosis lung Advanced diabetes mellitus with hyperglycemia Chronic kidney disease stage III 12/21/2020, patient seen eval examined during the rounds labs reviewed medications reviewed care plan discussed, respiratory status remains stable however patient is spiking a fever, overnight patient was afebrile, new problem is noted to be C. difficile colitis patient started on Flagyl however vancomycin need to be added as well patient remains on broad-spectrum antibiotics, vent setting include assist control tidal volume of 500 PEEP of 5, oxygen saturation is 90-94%, pancultures pending so far no growth, computed tomography scan of the chest abdominal and pelvis findings noted with the persistent finding of complex cyst on the right kidney basal atelectasis and infiltrate, 7 from a tree changes and pelvic mesentery, white cell count came down to 47,000, potassium is 5.3, BUN/creatinine 159 2.69, patient has been on levo fed drip 12/20/2020, patient does open her his eyes intermittently, off of propofol, tolerating tube feed well, no obvious distress is present, patient has been on CPAP 5 and pressure support 10, rate is in mid 20s, spontaneous tidal volume is 500-550, no obvious distress present, pressure support lowered to 5 rate remains along with tidal volume remains stable, patient is on insulin drip, plan to keep on CPAP and pressure support throughout the day has tolerated then will put assist control at nighttime, then will repeat the process in the morning again, we'll get arterial blood gas, WBC count is up to 54,000, arterial blood gas stable pH is 7.45 pCO2 48 pO2 of 73, BUN/creatinine up to 133 and 1.93, patient having low-grade fever, will do aguilar culture as well as do the computed tomography scan of the chest abdominal and pelvis without dye 12/19/2020, patient seen eval examined during the rounds labs reviewed medications reviewed care plan discussed with the staff, attempted CPAP and pressure support trial with CPAP of 5 and pressure support of 10 and 50% oxygen, tolerated about 20 minutes, patient developed respiratory distress with tachycardia and tachypnea put back on assist control mode, patient is off of propofol, opens eyes, anxious however not following commands, patient remains on antifungal antibiotics as well as antibacterial, with IV steroids, patient back on assist control with a rate of 20 tidal volume of 500, +5 of PEEP, and 50% oxygen, adequate urine output, chest x-ray performed today continue to manifest parenchymal changes and opacities with cardiomegaly interstitial edema, white cell count is up to 31,000, arterial blood gas revealed pH of 7.47, pCO2 52, pO2 is 93, BUN/creatinine stable 123/1.48, adequate urine output has been noted, 12/18/2020, patient seen eval examined during the rounds labs reviewed medications reviewed care plan discussed industry status remains marginal but stable, remains on 50% oxygen and 5 of PEEP, saturation is 94%, patient has been on rate of 20 tidal volume of 500, patient remains on low-dose propofol, discussed with staff at length plan is to taper and DC the propofol given a sedation holiday if tolerated well and arousable will do weaning trials tomorrow, chest x-ray continued to show bilateral partial infiltrates and small effusion stable lines and tubes, arterial blood gas stable with pH of 7.48 pCO2 49 and pO2 91, white cell count is up to 20,000, BUN/creatinine 128/ 1.78 patient has been started on IV antifungal, 12/17/2020, patient seen eval examined during the rounds labs reviewed medications reviewed care plan discussed, respiratory status slowly improving, FiO2 down to 50% saturation is 94%, PEEP is down to 8, patient remains on propofol 20 mics, arterial blood gas indicated above respiratory and metabolic a lkalosis, patient has been having adequate urine output, Lasix drip has been discontinued, remains on broad-spectrum antibiotics and IV fluids, bland overall today is to taper down the sedation give sedation holidays decrease the respiratory rate to 20 and decrease the PEEP to 5, will assess mental status once awake slow weaning to be continued, WBC count 16,700, hemoglobin and hematocrit stable, arterial blood gas revealed pH is 7.5 pCO2 42 pO2 of 83, BUN/creatinine remains 129 and 1.84 overall remains stable in last 48 hours 12/16/2020, patient seen and evaluated examined, sedated with propofol drip and fentanyl drip, able to titrate oxygen down to 40% however could not drop to keep less than 8, oxygen saturation remains marginal at 88-90%, urine output is adequate up to 300 mL/h, remains on Lasix strip, generalized anasarca is present, off of that hemodialysis for last 48 hours patient appears to be in diuretic phase of acute kidney injury discussed with the staff at length, need t o improve oxygen prior to lowering down the PEEP, continue auto diuresis with Lasix strip, however we'll titrate sedation down, will DC the fentanyl drip, continue propofol, fentanyl will be used as needed, ventilator setting remains stable currently on assist control rate of 30, tidal volume 550, PEEP of 8, oxygen is 40%, labs reviewed white cell count 15,800, hemoglobin and hematocrit is stable 13 and 38, arterial blood gas revealed pH of 7.48 pCO2 42 pO2 62, a line is out, BUN/creatinine is 120 and 2.13, 12/14/2020, patient seen eval examined during the rounds overall respiratory status remains marginal patient is a however down to 50% oxygen saturation is 93%, he is sedated he is off of medical paralysis, currently is on propofol and fentanyl drip, vent setting is stable remains on assist control rate of 30 tidal volume 550, PEEP is 10 FiO2 is 50%, patient had a started making urine he is hemodialysis 2 [id number] currently is on 10 mg Lasix strip, labs and radiographic studies reviewed, x-ray shows diffuse bilateral infiltrate and no significant change, arterial blood gas significantly improved pH is 7.35 pCO2 47 pO2 87, white cell count down to 11,000, 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 new mass has been noted, urology has been following pending further evaluation until he stabilized 12/13/2020, patient seen eval examined during the rounds labs reviewed medications reviewed care plan discussed, at industry status the remains marginal 70% oxygen, patient remains on PEEP of 10, tidal volume is 550, rate is 30, ABG reviewed this morning slightly better, patient remains on Nimbex along with fentanyl and propofol, can taper and DC the Nimbex drip, patient had the first episode of hemodialysis yesterday over 2 L I've been removed however patient did require vasopressors during dialysis, currently undergoing second course of hemodialysis again back on levo fed postdialysis yesterday came off of U for drip without any problem issues, patient had ultrasound done which showed left-sided renal mass versus bowel shadow urology has been consulted, patient remains on broad-spectrum antibiotics labs reviewed x-ray reviewed care plan discussed with the staff at length 12/12/2020, patient seen eval examined during the rounds labs reviewed medications reviewed patient remains sedated and medically paralyzed, patient is on the propofol which is down to 40 mics, NIMBEX AND FENTANYL DRIP, HEMODYNAMIC STATUS IS STABLE OFF OF VASOPRESSORS, BLOOD PRESSURE STABLE, respiratory status remains very marginal along with fluid overload and anasarca attempted Lasix strip patient did not respond very well, patient remains on assist control with a rate of 30 tidal volume of 550, 10 of PEEP oxygen is 70%, unable to wean it down saturations marginal 91% only, peak airway pressure up into high 30s now persistent with poor compliance of the chest also component of fluid overload, labs reviewed white cell count remains stable 13,000, hemoglobin stable platelet count is 206,000, ABG revealed pH of 7.21, pCO2 50, pO2 72, sodium 138 production continued to be up to 6.3, BUN and creatinine increase to 96 and 2.66, 12/11/2020, patient seen eval reexamined during the rounds labs reviewed medications reviewed care plan discussed, respiratory status the remains marginal however patient started desaturating earlier this morning has a significant amount of respiratory and metabolic acidosis as well, patient has been +3 L in the last 24 hours, discussed with the renal service about increasing diuretics or possibly starting on bicarb drip, renal function however remains stable, patient is sedated and medically paralyzed with fentanyl propofol Nimbex, discussed with staff about lowering down propofol drip to 30-40 mics, chest x-ray from today reviewed consistent with fluid overload fluid appears to be tracking into right major fissure, overall not much change from previous x-ray, patient remains on ventilator setting current setting includes assist control rate of 30, tidal volume of 550, FiO2 increase from 60% to 70%, sugars elevated have been on sliding scale, patient is tolerating tube feed fairly well, patient also noted to have progressive developing anasarca, noted labs white cell count continue to go down to 13,000, arterial blood gas continued magnificent respiratory and metabolic acidosis, significant component of diffusion impairment, hyperkalemia with potassium was 6.1, 12/10/2020, patient seen eval examined in the ICU, he remains intubated and medically sedated and paralyzed on the propofol, name backs and fentanyl drip, levo fed is now came off after fluid boluses, patient has significant metabolic acidosis due to multifactorial processes including acute kidney injury pneumonia and the vasopressors, patient has been on bicarb drip, being adjusted, to feed is in process, hemodynamic status is slightly better, FiO2 is started down to 70%, underwent setting includes assist control rate of 30 to volume of 550 10 of PEEP, arterial blood gases reviewed pH 7.14 pCO2 51 patient was given 1 amp of bicarb with the bicarb drip white cell count is down to 18,800, hemodynamic status slightly stable than before, overall plan is to continue to come down oxygen monitor renal functions closely monitor hyperkalemia, repeat chemistry pending for later on today 12/09/2020, patient seen eval examined continued to have marginal hemodynamics and respiratory status, patient sedated medically paralyzed with Nimbex drip, propofol, fentanyl drip, arterial blood gases done this morning reveal severe metabolic and respiratory acidosis ventilator have been adjusted now new ventricular setting includes assist control rate of 30 to volume of 550 PEEP remains 10 oxygen is down to 90%, patient now on levo fed, we'll try to taper down the levo fed by giving fluids S patient is volume depleted as well and lo wering down propofol aim to bring down propofol to 30-40 mics in next 24 hours, fluid will be given 100 mL an hour continuous with fluid boluses boluses of 500 mL/h for 2 hours, patient remains on meropenem, potassium noted to be elevated to 6.4, BUN/creatinine slightly up to 55 1.8, we'll give Kayexalate 2 doses, repeat BMP later on today 12/08/2020, patient seen eval examined during the rounds labs reviewed medications reviewed, critical care time spent 45 minutes, patient developed progressive increased respiratory distress was transferred to the ICU was intubated for respiratory distress, patient has dense bilateral infiltrate, sputum is positive for gram-negative rods, patient is hypotensive requiring fluid boluses likely will required vasopressors as well, for agitation has been placed on propofol for now has been on 75 need to be paralyzed, patient has been also started on fentanyl drip, patient has been on Cefepime for gram-negative pneumonia, final sputum culture have been pending, patient currently on full ventilator support with 100% oxygen and 10 of PEEP, rate is 26, breathing about 28-30, volume is 500, peak pressure in low 30s, blood pressure after the boluses 100/40, respiratory rate is 32, heart rate 81 temperature sats are 91%, 1 cell count is up to 23,000 hemoglobin is stable 14, d-dimer continue to go up 3.97, arterial blood gases revealed pH of 7.24 pCO2 58-year-old O2 of 80 8/2 an hour after on above ventilator setting, potentially was 5.5, BUN/creatinine 45 1.37, patient has a elevated inflammatory parameters including ferritin in 631, LDH is 1658 C-reactive protein 15.9 patient will need a central line, we will sedate and medically paralyzed, will start tube feed, monitor labs closely, patient will be started on Lovenox 30 mg subcu every 12 12/06/2020, patient seen eval reexamined labs reviewed medications reviewed care plan discussed, respiratory status remains marginal denies any chest pain, however more hypoxic currently on 15 L high flow oxygen, remains afebrile hemodynamically stable, oxygen saturation is 93%, check urgent pro-calcitonin as well as d-dimer, if d-dimer is elevated consider doing a VQ scan and duplex ultrasound lower extremity, we will also check an echocardiogram This is a 70-year-old male well-known to me patient has a severe diabetes mellitus and chronic kidney disease as baseline, 2 months ago patient was ad mitted to hospital with acute COVID-19 pneumonia and respiratory failure patient was on 100% oxygen and BiPAP but however successfully tapered down up to 4 L nasal cannula was discharged home patient did not came back for follow-up, for the last few days has been spiking fever more short of breath oxygen in increase to 5 L nasal cannula came into the hospital for further evaluation chest x-ray not much change his code went testing is negative, patient has been vaccinated for COVID-19 his most recent chest x-ray continued to show cardiomegaly chronic changes, no particular significant change from prior x-rays, patient does have a history of asbestosis lung however Objective - Vital Signs Vital signs: Vital Signs Temp 98.7 F 12/21/20 00:00 Pulse 91 12/21/20 07:00 Resp 22 12/21/20 07:00 BP 109/74 12/21/20 07:00 Pulse Ox 93 L 12/21/20 07:00 Intake & Output 12/20/20 12/21/20 12/21/20 18:59 06:59 18:59 Intake Total 6131.887 0458.488 287.508 Output Total 868 395 30 Balance 804.573 6889.488 257.508 Weight 115.666 kg Intake: IV 240 240 20 Sodium Chloride 0.9% 1, 240 240 20 000 ml @ 20 mls/hr IV . Q24H [facility] Rx#:[id number] Intake, IV Titration 299.374 799.488 187.508 Amount Insulin Regular 100 unit 40.720 37.488 5.505 In Sodium Chloride 0.9% 100 ml @ Per Protocol IV .Q0M [facility] Rx#:[id number] Norepinephrine 4 mg In 238.413 762.000 182.003 Sodium Chloride 0.9% 250 ml @ 0.05 MCG/KG/MIN 22. 034 mls/hr IV .[id number] [facility] Rx#:[id number] propofoL 1,000 mg In 20.241 Empty Bag 1 bag @ Titrate IV .Q0M [facility] Rx#: [id number] Tube Feeding 300 360 30 Other 500 600 50 Output: Urine 868 395 30 Other: Voiding Method Indwelling Catheter Indwelling Catheter # Bowel Movements 1 ABP, PAP, CO, CI - Last Documented Arterial Blood Pressure 124/55 - Exam - Constitutional General appearance: sedated on full ventilator support - Neck Neck: normal ROM Carotids: bilateral: upstroke normal Thyroid: bilateral: normal size - Respiratory Respiratory: bilateral: diminished, rales - Cardiovascular Rhythm: regular Heart sounds: normal: S1, S2 - Gastrointestinal General gastrointestinal: soft - Integumentary Integumentary: normal turgor - Neurologic Neurologic: CNII-XII intact - Musculoskeletal Musculoskeletal: gait normal, generalized weakness, strength equal bilaterally - Psychiatric Psychiatric: sedated on full ventilator support - Labs CBC & Chem 7: 12/21/20 06:15 12/21/20 06:15 Labs: Abnormal Lab Results - Last 24 Hours (Table) 12/20/20 12/20/20 12/20/20 Range/Units 10:36 11:36 12:47 WBC (3.8-10.6) k/uL ABG pO2 (83-108) mmHg ABG HCO3 (21-25) mmol/L ABG Total CO2 (19-24) mmol/L Potassium (3.5-5.1) mmol/L Chloride (98-107) mmol/L BUN (9-20) mg/dL Creatinine (0.66-1.25) mg/dL Glucose (74-99) mg/dL POC Glucose (mg/dL) 193 H 117 H 151 H (75-99) mg/dL Calcium (8.4-10.2) mg/dL C. difficile (EIA) Intrp (Negative) 12/20/20 12/20/20 12/20/20 Range/Units 13:40 14:40 15:50 WBC (3.8-10.6) k/uL ABG pO2 (83-108) mmHg ABG HCO3 (21-25) mmol/L ABG Total CO2 (19-24) mmol/L Potassium (3.5-5.1) mmol/L Chloride (98-107) mmol/L BUN (9-20) mg/dL Creatinine (0.66-1.25) mg/dL Glucose (74-99) mg/dL POC Glucose (mg/dL) 126 H 133 H 162 H (75-99) mg/dL Calcium (8.4-10.2) mg/dL C. difficile (EIA) Intrp (Negative) 12/20/20 12/20/20 12/20/20 Range/Units 16:41 17:00 17:43 WBC (3.8-10.6) k/uL ABG pO2 (83-108) mmHg ABG HCO3 (21-25) mmol/L ABG Total CO2 (19-24) mmol/L Potassium (3.5-5.1) mmol/L Chloride (98-107) mmol/L BUN (9-20) mg/dL Creatinine (0.66-1.25) mg/dL Glucose (74-99) mg/dL POC Glucose (mg/dL) 155 H 226 H (75-99) mg/dL Calcium (8.4-10.2) mg/dL C. difficile (EIA) Intrp Positive A (Negative) 12/20/20 12/20/20 12/20/20 Range/Units 18:43 20:38 22:15 WBC (3.8-10.6) k/uL ABG pO2 (83-108) mmHg ABG HCO3 (21-25) mmol/L ABG Total CO2 (19-24) mmol/L Potassium (3.5-5.1) mmol/L Chloride (98-107) mmol/L BUN (9-20) mg/dL Creatinine (0.66-1.25) mg/dL Glucose (74-99) mg/dL POC Glucose (mg/dL) 174 H 160 H 157 H (75-99) mg/dL Calcium (8.4-10.2) mg/dL C. difficile (EIA) Intrp (Negative) 12/20/20 12/21/20 12/21/20 Range/Units 23:09 00:08 01:05 WBC (3.8-10.6) k/uL ABG pO2 (83-108) mmHg ABG HCO3 (21-25) mmol/L ABG Total CO2 (19-24) mmol/L Potassium (3.5-5.1) mmol/L Chloride (98-107) mmol/L BUN (9-20) mg/dL Creatinine (0.66-1.25) mg/dL Glucose (74-99) mg/dL POC Glucose (mg/dL) 151 H 177 H 160 H (75-99) mg/dL Calcium (8.4-10.2) mg/dL C. difficile (EIA) Intrp (Negative) 12/21/20 12/21/20 12/21/20 Range/Units 02:12 03:06 04:11 WBC (3.8-10.6) k/uL ABG pO2 (83-108) mmHg ABG HCO3 (21-25) mmol/L ABG Total CO2 (19-24) mmol/L Potassium (3.5-5.1) mmol/L Chloride (98-107) mmol/L BUN (9-20) mg/dL Creatinine (0.66-1.25) mg/dL Glucose (74-99) mg/dL POC Glucose (mg/dL) 171 H 159 H 180 H (75-99) mg/dL Calcium (8.4-10.2) mg/dL C. difficile (EIA) Intrp (Negative) 12/21/20 12/21/20 12/21/20 Range/Units 05:09 06:15 06:15 WBC 47.1 H (3.8-10.6) k/uL ABG pO2 76 L (83-108) mmHg ABG HCO3 27 H (21-25) mmol/L ABG Total CO2 29 H (19-24) mmol/L Potassium 5.3 H (3.5-5.1) mmol/L Chloride 108 H (98-107) mmol/L BUN 159 H* (9-20) mg/dL Creatinine 2.69 H (0.66-1.25) mg/dL Glucose 172 H (74-99) mg/dL POC Glucose (mg/dL) (75-99) mg/dL Calcium 8.2 L (8.4-10.2) mg/dL C. difficile (EIA) Intrp (Negative) 12/21/20 12/21/20 Range/Units 06:33 08:03 WBC (3.8-10.6) k/uL ABG pO2 (83-108) mmHg ABG HCO3 (21-25) mmol/L ABG Total CO2 (19-24) mmol/L Potassium (3.5-5.1) mmol/L Chloride (98-107) mmol/L BUN (9-20) mg/dL Creatinine (0.66-1.25) mg/dL Glucose (74-99) mg/dL POC Glucose (mg/dL) 160 H 134 H (75-99) mg/dL Calcium (8.4-10.2) mg/dL C. difficile (EIA) Intrp (Negative) Microbiology - Last 24 Hours (Table) 12/19/20 20:30 Gram Stain - Preliminary Sputum Sputum Culture - Preliminary 12/20/20 17:00 Stool Culture - Preliminary Stool 12/20/20 12:00 Urine Culture - Preliminary Urine,Catheterized 12/19/20 16:57 Blood Culture - Preliminary Blood No Growth after 24 hours Assessment and Plan Assessment: C. difficile colitis Elevated WBC likely related to above with fever Acute respiratory failure with difficulty to wean due to marginal oxygenation, withdraws the sedation ventilator adjustment acute kidney injury with fluid overload and anasarca, currently on diuretic phase left renal mass with history of renal cell clear carcinoma, status post partial elective nephrectomy in 2019 gram-negative pneumonia due to ESBL E. coli Severe sepsis and septic shock due to gram-negative pneumonia Acute on chronic hypoxic and hypercapnic respiratory failure Acute lung injury and ARDS Developing progressive right-sided pleural effusion Acute kidney injury hyperkalemia Metabolic and respiratory acidosis Uncontrolled diabetes Pulmonary fibrosis due to extensive recentCOVID-19 pneumonia Asbestosis lung pulmonary nodule Advanced diabetes mellitus with hyperglycemia Chronic kidney disease stage III Plan: Reviewed computed tomography scan of the chest abdomen pelvis without dye, pancultures, Continue Flagyl recommend to add vancomycin through the OG tube ID following, will let ID service to decide Continue weaning trial We will do a CPAP 5 pressure support 10 and 50% oxygen and oxygen trial 3 times a day as tolerated for 1 hour Continue auto diuresis with Lasix IV as needed Withdraw sedation assess mental status ventilator adjustment Follow renal functions closely Continue broad-spectrum antibiotics Ventilator adjustment as per orders as above patient status post second course of hemodialysis urine output has improved now will titrate oxygen down to 40% subsequently will bring down the PEEP as tolerated, continue weaning as tolerated Urology evaluation Patient is off of Nimbex drip ventilator adjustment status post central line Lovenox 30 mg subcu every 12 tube feed as per protocol Labs chest x-ray and ABG in the morning Off of Vasopressors Follow-up on Aguilar cultures including sputum urine and blood continue antibiotics IV steroids evaluation of pulmonary nodule once stabilized Time with Patient: Greater than 30
[2020-12-21 11:44] LABS: Glucose,Whole Blood 241 mg/dL (75-99)
[2020-12-21] MEDS ORDERED: INSULIN ASPART (NovoLOG) 100 UNIT/ML VIAL SQ SCH (14:00)
--- NOTE | 2020-12-21 14:49 | P.PN ---
Subjective Patient is being treated for secondary bacterial pneumonia and he was recently discharged after he was treated for Covid 19. 8. Patient was intubated around 08 of December. Patient is found to have ESBL in the sputum. Patient is being treated for post Covid gram-negative pneumonia and found to have ESBL E. coli in the sputum. Patient was on meropenem and completed therapy with meropenem without any significant improvement because of which patient was started on broad-spectrum antibiotic that he cefteroline when then patient started having diarrhea and patient had leukocytosis with white blood cell count going up from 20,000-54,000 patient is found to have C. diff colitis. was also started on hemodialysis during this hospitalization which is again secondary to acute tubular necrosis from severe sepsis. Patient is presently on 50% FiO2 PEEP of 5 patient's sedation was turned of about a day ago in spite of which patient still doesn't have any purposeful movements. Patient does have brainstem reflexes. Patient prognosis is extremely poor patient was treated aggressively without any significant improvement with more and more complications including C. diff colitis, will discuss with the family regarding overall goals of care. Patient does have multiorgan dysfunction and patient is in and out of septic shock and was requiring norepinephrine on and off. Patient's rhythm is also showing Anamaria remains on systemic steroids patient is also on metronidazole possibly for C. diff. Patient is ALLERGIC to to vancomycin. Review of systems: Unable to obtain due to his clinical condition All inpatient medications were reviewed and appropriate changes in these medications as dictated in the interval history and assessment and plan. Objective - Vital Signs Vital signs: Vital Signs Temp 100.5 F H 12/21/20 12:00 Pulse 84 12/21/20 14:00 Resp 24 12/21/20 14:00 BP 135/73 12/21/20 14:00 Pulse Ox 93 L 12/21/20 14:00 Intake & Output 12/20/20 12/21/20 12/21/20 18:59 06:59 18:59 Intake Total 5217.773 3907.488 1921.457 Output Total 868 395 115 Balance 290.303 5385.488 1806.457 Weight 115.666 kg Intake: IV 240 240 870 Ceftaroline Fosamil 400 250 mg In Sodium Chloride 0.9 % 250 ml @ 250 mls/hr IVPB Q12HR [facility] Rx#: [id number] Sodium Chloride 0.9% 1, 240 240 120 000 ml @ 20 mls/hr IV . Q24H [facility] Rx#:[id number] metroNIDAZOLE-NS PMX 500 500 mg In Saline 1 100ml.bag @ 100 mls/hr IVPB Q8HR [facility] Rx#:[id number] Intake, IV Titration 299.374 799.488 471.457 Amount Insulin Regular 100 unit 40.720 37.488 5.505 In Sodium Chloride 0.9% 100 ml @ Per Protocol IV .Q0M [facility] Rx#:[id number] Norepinephrine 4 mg In 238.413 762.000 465.952 Sodium Chloride 0.9% 250 ml @ 0.05 MCG/KG/MIN 22. 034 mls/hr IV .[id number] [facility] Rx#:[id number] propofoL 1,000 mg In 20.241 Empty Bag 1 bag @ Titrate IV .Q0M [facility] Rx#: [id number] Oral 100 Tube Feeding 300 360 180 Other 500 600 300 Output: Urine 868 395 115 Other: Voiding Method Indwelling Catheter Indwelling Catheter # Bowel Movements 1 ABP, PAP, CO, CI - Last Documented Arterial Blood Pressure 124/55 - Exam PHYSICAL EXAMINATION: GENERAL: Patient is intubated sedated HEENT: Pupils are round and equally reacting to light. EOMI. No scleral icterus. No conjunctival pallor. Normocephalic, atraumatic. No pharyngeal erythema. No thyromegaly. CARDIOVASCULAR: S1 and S2 present. No murmurs, rubs, or gallops. PULMONARY: Sounds and diminished air entry into bilateral lung tavarez ABDOMEN: Soft, nontender, nondistended, normoactive bowel sounds. No palpable organomegaly. MUSCULOSKELETAL: No joint swelling or deformity. EXTREMITIES: No cyanosis, clubbing, or pedal edema. NEUROLOGICAL: Sedated. SKIN: No rashes. - Labs CBC & Chem 7: 12/21/20 06:15 12/21/20 06:15 Labs: Abnormal Lab Results - Last 24 Hours (Table) 12/20/20 12/20/20 12/20/20 Range/Units 14:40 15:50 16:41 WBC (3.8-10.6) k/uL ABG pO2 (83-108) mmHg ABG HCO3 (21-25) mmol/L ABG Total CO2 (19-24) mmol/L Potassium (3.5-5.1) mmol/L Chloride (98-107) mmol/L BUN (9-20) mg/dL Creatinine (0.66-1.25) mg/dL Glucose (74-99) mg/dL POC Glucose (mg/dL) 133 H 162 H 155 H (75-99) mg/dL Calcium (8.4-10.2) mg/dL C. difficile (EIA) Intrp (Negative) 12/20/20 12/20/20 12/20/20 Range/Units 17:00 17:43 18:43 WBC (3.8-10.6) k/uL ABG pO2 (83-108) mmHg ABG HCO3 (21-25) mmol/L ABG Total CO2 (19-24) mmol/L Potassium (3.5-5.1) mmol/L Chloride (98-107) mmol/L BUN (9-20) mg/dL Creatinine (0.66-1.25) mg/dL Glucose (74-99) mg/dL POC Glucose (mg/dL) 226 H 174 H (75-99) mg/dL Calcium (8.4-10.2) mg/dL C. difficile (EIA) Intrp Positive A (Negative) 12/20/20 12/20/20 12/20/20 Range/Units 20:38 22:15 23:09 WBC (3.8-10.6) k/uL ABG pO2 (83-108) mmHg ABG HCO3 (21-25) mmol/L ABG Total CO2 (19-24) mmol/L Potassium (3.5-5.1) mmol/L Chloride (98-107) mmol/L BUN (9-20) mg/dL Creatinine (0.66-1.25) mg/dL Glucose (74-99) mg/dL POC Glucose (mg/dL) 160 H 157 H 151 H (75-99) mg/dL Calcium (8.4-10.2) mg/dL C. difficile (EIA) Intrp (Negative) 12/21/20 12/21/20 12/21/20 Range/Units 00:08 01:05 02:12 WBC (3.8-10.6) k/uL ABG pO2 (83-108) mmHg ABG HCO3 (21-25) mmol/L ABG Total CO2 (19-24) mmol/L Potassium (3.5-5.1) mmol/L Chloride (98-107) mmol/L BUN (9-20) mg/dL Creatinine (0.66-1.25) mg/dL Glucose (74-99) mg/dL POC Glucose (mg/dL) 177 H 160 H 171 H (75-99) mg/dL Calcium (8.4-10.2) mg/dL C. difficile (EIA) Intrp (Negative) 12/21/20 12/21/20 12/21/20 Range/Units 03:06 04:11 05:09 WBC (3.8-10.6) k/uL ABG pO2 76 L (83-108) mmHg ABG HCO3 27 H (21-25) mmol/L ABG Total CO2 29 H (19-24) mmol/L Potassium (3.5-5.1) mmol/L Chloride (98-107) mmol/L BUN (9-20) mg/dL Creatinine (0.66-1.25) mg/dL Glucose (74-99) mg/dL POC Glucose (mg/dL) 159 H 180 H (75-99) mg/dL Calcium (8.4-10.2) mg/dL C. difficile (EIA) Intrp (Negative) 12/21/20 12/21/20 12/21/20 Range/Units 06:15 06:15 06:33 WBC 47.1 H (3.8-10.6) k/uL ABG pO2 (83-108) mmHg ABG HCO3 (21-25) mmol/L ABG Total CO2 (19-24) mmol/L Potassium 5.3 H (3.5-5.1) mmol/L Chloride 108 H (98-107) mmol/L BUN 159 H* (9-20) mg/dL Creatinine 2.69 H (0.66-1.25) mg/dL Glucose 172 H (74-99) mg/dL POC Glucose (mg/dL) 160 H (75-99) mg/dL Calcium 8.2 L (8.4-10.2) mg/dL C. difficile (EIA) Intrp (Negative) 12/21/20 12/21/20 Range/Units 08:03 11:42 WBC (3.8-10.6) k/uL ABG pO2 (83-108) mmHg ABG HCO3 (21-25) mmol/L ABG Total CO2 (19-24) mmol/L Potassium (3.5-5.1) mmol/L Chloride (98-107) mmol/L BUN (9-20) mg/dL Creatinine (0.66-1.25) mg/dL Glucose (74-99) mg/dL POC Glucose (mg/dL) 134 H 241 H (75-99) mg/dL Calcium (8.4-10.2) mg/dL C. difficile (EIA) Intrp (Negative) Microbiology - Last 24 Hours (Table) 12/19/20 20:30 Gram Stain - Preliminary Sputum Sputum Culture - Preliminary Anamaria albicans 12/20/20 17:00 Stool Culture - Preliminary Stool 12/20/20 12:00 Urine Culture - Preliminary Urine,Catheterized 12/19/20 16:57 Blood Culture - Preliminary Blood No Growth after 24 hours Assessment and Plan Plan: - septic shock: likely due to secondary bacterial pneumonia, patient's (a positive for E. coli which is ESBL E. coli. Patient most probably has a post Covid bacterial pneumonia. COVID-19 PCR is negative on this hospitalization, pulmonary and infectious disease are following the patient. Patient is presently on Cefterolin, was on meropenem without any significant in his sepsis status. Patient completed course of meropenem -C. diff colitis: Patient is on metronidazole. Infectious disease is following the patient Patient was on Antifungal agents as sputum culture showing Anamaria albicans. She is presently not on any antifungal agents. -Acute hypoxic respiratory failure secondary to septic shock. -Acute renal failure secondary to acute tubular necrosis from septic shock, patient is presently on hemodialysis scheduled -elevated d-dimer secondary to pneumonia . -Acute on chronic hypoxic respiratory failure secondary to pneumonia. -History of asbestosis -Chronic kidney disease stage II to 3. Probable diabetic nephropathy --History of DVT in the past -Type 2 diabetes mellitus: Well controlled, continue with present regimen of long-acting insulin and short-acting insulin every 4 hours. Patient is also on systemic steroids as per pulmonary. -Hypertension -Sleep apnea -Diabetic peripheral neuropathy -History of renal mass. Status post nephrectomy in 2019. -DVT prophylaxis with subcutaneous heparin
[2020-12-21 15:58] LABS: Glucose,Whole Blood 418 mg/dL (75-99)
[2020-12-21] MEDS: INSULIN ASPART (NovoLOG) 100 UNIT/ML VIAL SQ SCH ×3 (16:09→23:58)
[2020-12-21] MEDS: VANCOMYCIN ORAL SOLUTION 250 MG/5 ML BOTTLE PO SCH ×2 (18:55→21:01)
[2020-12-21 20:29] LABS: Glucose,Whole Blood 380 mg/dL (75-99)
[2020-12-21] MEDS ORDERED: INSULIN DETEMIR (LEVEMIR) 100 UNIT/ML SYR SQ SCH (21:00)
--- NOTE | 2020-12-21 22:56 | PN ---
PROGRESS NOTE DATE OF SERVICE: 12/21/2020. FOLLOWUP VISIT: C difficile colitis. INTERVAL HISTORY: Patient did have a loose stool last night for which a stool for C difficile was sent which came back positive. The patient is currently requiring pressor support. FiO2 is currently stable. No significant purulent secretions in the ET and no further diarrhea has been reported by nursing staff. PHYSICAL EXAMINATION: Blood pressure 97/62 with a pulse of 91, temperature 99.1. He is 95% on 50% FiO2. General description is a middle-aged male lying in no distress. Respiratory system: Unlabored breathing, decreased breath sounds at the base. No wheeze. HEART: S1, S2. Regular rate. ABDOMEN: Soft, mildly distended. No guarding. No rigidity. EXTREMITIES: 2+ edema of the feet. LABS: BUN of 159, creatinine is 2.69. White count slightly down to 47.1. Sputum repeat showing Anamaria albicans. Repeat urine is negative. DIAGNOSTIC IMPRESSION AND PLAN: Patient with significant elevated white count and diarrhea. for C diff positive likely C difficile colitis. The patient does have a VANCOMYCIN ALLERGY documented on the chart. However, the family has no idea that type of reaction this patient has as oral vancomycin is not absolved and no clear history of type of reaction that will be safe to use oral vancomycin down the PEG tube which the patient currently needs as repeat sputum is negative for resistant pathogen. Teflaro will be discontinued. Family was at the bedside. They had multiple questions, those were answered. MMODL / IJN: [id number] /
[2020-12-21 23:54] LABS: Glucose,Whole Blood 406 mg/dL (75-99)
[2020-12-22] MEDS: NOREPINEPHRINE 8 MG in SODIUM CHLORIDE 0.9% 250 ML IV SCH ×6 (00:11→22:43)
[2020-12-22 04:08] LABS: Glucose,Whole Blood 371 mg/dL (75-99)
[2020-12-22] MEDS: INSULIN ASPART (NovoLOG) 100 UNIT/ML VIAL SQ SCH (04:12)
[2020-12-22 04:58] LABS: Basophils # (A) 0.1 k/uL (0-0.2); Basophils % (A) 0 %; Eosinophils % (A) 0 %; HCT 47.7 % (39.0-53.0); HGB 15.1 gm/dL (13.0-17.5); Hypochromasia Slight; Lymphocytes # (A) 0.5 k/uL (1.0-4.8); Lymphocytes % (A) 1 %; MCH 29.8 pg (25.0-35.0); MCHC 31.6 g/dL (31.0-37.0); MCV 94.1 fL (80.0-100.0); Mean Platelet Volume 8.4; Monocytes # (A) 1.6 k/uL (0-1.0); Monocytes % (A) 4 %; Neutrophils % (A) 94 %; Platelet Count 259 k/uL (150-450); RBC 5.07 m/uL (4.30-5.90); RDW 14.6 % (11.5-15.5); WBC 44.7 k/uL (3.8-10.6)
[2020-12-22 05:01] LABS: ABG Base Excess -4.9 mmol/L; ABG HCO3 22 mmol/L (21-25); ABG Oxygen Saturation 94.3 % (94-97); ABG PCO2 44 mmHg (35-45); ABG PO2 81 mmHg (83-108); ABG TCO2 23 mmol/L (19-24); Allen Test Performed? Yes
[2020-12-22 05:02] LABS: Neutrophils # (A) 42.1 k/uL (1.3-7.7)
[2020-12-22 05:10] LABS: Albumin 2.1 g/dL (3.5-5.0); Calcium 7.8 mg/dL (8.4-10.2); Total Bilirubin 0.9 mg/dL (0.2-1.3); Total Protein 4.4 g/dL (6.3-8.2)
[2020-12-22] MEDS ORDERED: INSULIN REGULAR BOLUS (FROM DRIP BAG) IV PRN ×2 (06:27→07:11)
[2020-12-22] MEDS ORDERED: INSULIN REGULAR 100 UNIT/ML VIAL IV ONE (06:30)
[2020-12-22] MEDS ORDERED: FUROSEMIDE 10 MG/ML 10 ML VIAL IV STA (07:57)
[2020-12-22] MEDS: SYMBICORT 160-4.5 MCG INHALER INHALATION SCH ×2 (07:58→19:54)
[2020-12-22] MEDS ORDERED: SODIUM BICARB 8.4% 50 ML SYR (1 MEQ/ML) IV STA (07:58)
[2020-12-22] MEDS: ALBUTEROL HFA INHALER INHALATION PRN ×4 (07:58→19:54)
--- NOTE | 2020-12-22 08:16 | XR ---
EXAMINATION TYPE: XR chest 1V portable DATE OF EXAM: 12/22/2020 Comparison: 12/21/2020 Clinical History: 70-year-old male tube placement Findings: ET tube satisfactory. NG tube satisfactory. Right IJ CVC tip has been pulled back now probably at the right brachiocephalic vein confluence. Patient is severely rotated towards the right limiting the ev aluation. The heart appears enlarged. Patchy bilateral interstitial opacities and peripheral opacitie s seem to be present. Impression: Markedly limited, rotated exam. Cardiomegaly. Peripheral opacities persist, possibly atypical pneumon ia or interstitial pneumonitis. The right IJ CVC has been pulled back. Tip probably now near the region of the right brachiocephalic vein confluence.
[2020-12-22] MEDS: metroNIDAZOLE-NS PMX 500 MG in SALINE 1 100ML.BAG IVPB SCH ×2 (08:39→18:11)
[2020-12-22] MEDS: atenoloL 25 MG TAB PO SCH (08:39)
--- NOTE | 2020-12-22 08:42 | P.PN ---
Subjective Patient is seen in follow-up for acute kidney injury. Renal function worsening. Urine output has dropped. Now about 5-10 mL an hour. Remains on Levophed. Intubated. Receiving tube feeding. Potassium level elevated this morning. Blood sugars have also been high overnight. Vital signs are stable. HEENT: Intubated. LUNGS: Breath sounds decreased. HEART: Rate and Rhythm are regular. ABDOMEN: Soft, no distention. EXTREMITITES: Trace edema. Objective - Vital Signs Vital signs: Vital Signs Temp 98.7 F 12/22/20 00:00 Pulse 74 12/22/20 07:00 Resp 20 12/22/20 07:00 BP 97/63 12/22/20 07:00 Pulse Ox 95 12/22/20 07:00 Intake & Output 12/21/20 12/22/20 12/22/20 18:59 06:59 18:59 Intake Total 2729.354 1700.254 210.973 Output Total 170 127 10 Balance 2559.354 1573.254 200.973 Intake: IV 1090 240 20 Ceftaroline Fosamil 400 250 mg In Sodium Chloride 0.9 % 250 ml @ 250 mls/hr IVPB Q12HR [facility] Rx#: [id number] Sodium Chloride 0.9% 1, 240 240 20 000 ml @ 20 mls/hr IV . Q24H [facility] Rx#:[id number] metroNIDAZOLE-NS PMX 500 600 mg In Saline 1 100ml.bag @ 100 mls/hr IVPB Q8HR [facility] Rx#:[id number] Intake, IV Titration 659.354 580.254 110.973 Amount Insulin Regular 100 unit 5.505 In Sodium Chloride 0.9% 100 ml @ Per Protocol IV .Q0M [facility] Rx#:[id number] Norepinephrine 4 mg In 653.849 222.254 Sodium Chloride 0.9% 250 ml @ 0.05 MCG/KG/MIN 22. 034 mls/hr IV .[id number] [facility] Rx#:[id number] Norepinephrine 8 mg In 258.000 110.973 Sodium Chloride 0.9% 250 ml @ 0.05 MCG/KG/MIN 11. 191 mls/hr IV .Q23H4M [facility] Rx#:[id number] metroNIDAZOLE-NS PMX 500 100 mg In Saline 1 100ml.bag @ 100 mls/hr IVPB Q8HR [facility] Rx#:[id number] Oral 100 Tube Feeding 330 330 30 Other 550 550 50 Output: Urine 170 127 10 Other: Voiding Method Indwelling Catheter Indwelling Catheter ABP, PAP, CO, CI - Last Documented Arterial Blood Pressure 124/55 - Labs CBC & Chem 7: 12/22/20 04:48 12/22/20 04:48 Labs: Abnormal Lab Results - Last 24 Hours (Table) 12/21/20 12/21/20 12/21/20 Range/Units 11:42 15:56 20:28 WBC (3.8-10.6) k/uL Neutrophils # (1.3-7.7) k/uL Lymphocytes # (1.0-4.8) k/uL Monocytes # (0-1.0) k/uL ABG pH (7.35-7.45) ABG pO2 (83-108) mmHg Potassium (3.5-5.1) mmol/L Carbon Dioxide (22-30) mmol/L Creatinine (0.66-1.25) mg/dL Glucose (74-99) mg/dL POC Glucose (mg/dL) 241 H 418 H 380 H (75-99) mg/dL Calcium (8.4-10.2) mg/dL Alkaline Phosphatase (38-126) U/L Total Protein (6.3-8.2) g/dL Albumin (3.5-5.0) g/dL 12/21/20 12/22/20 12/22/20 Range/Units 23:52 04:06 04:48 WBC 44.7 H (3.8-10.6) k/uL Neutrophils # 42.1 H (1.3-7.7) k/uL Lymphocytes # 0.5 L (1.0-4.8) k/uL Monocytes # 1.6 H (0-1.0) k/uL ABG pH (7.35-7.45) ABG pO2 (83-108) mmHg Potassium (3.5-5.1) mmol/L Carbon Dioxide (22-30) mmol/L Creatinine (0.66-1.25) mg/dL Glucose (74-99) mg/dL POC Glucose (mg/dL) 406 H 371 H (75-99) mg/dL Calcium (8.4-10.2) mg/dL Alkaline Phosphatase (38-126) U/L Total Protein (6.3-8.2) g/dL Albumin (3.5-5.0) g/dL 12/22/20 12/22/20 Range/Units 04:48 04:55 WBC (3.8-10.6) k/uL Neutrophils # (1.3-7.7) k/uL Lymphocytes # (1.0-4.8) k/uL Monocytes # (0-1.0) k/uL ABG pH 7.30 L (7.35-7.45) ABG pO2 81 L (83-108) mmHg Potassium 6.0 H (3.5-5.1) mmol/L Carbon Dioxide 15 L (22-30) mmol/L Creatinine 3.58 H (0.66-1.25) mg/dL Glucose 390 H (74-99) mg/dL POC Glucose (mg/dL) (75-99) mg/dL Calcium 7.8 L (8.4-10.2) mg/dL Alkaline Phosphatase 151 H (38-126) U/L Total Protein 4.4 L (6.3-8.2) g/dL Albumin 2.1 L (3.5-5.0) g/dL Microbiology - Last 24 Hours (Table) 12/19/20 16:57 Blood Culture - Preliminary Blood No Growth after 48 hours 12/20/20 12:00 Urine Culture - Final Urine,Catheterized 12/19/20 20:30 Gram Stain - Preliminary Sputum Sputum Culture - Preliminary Anamaria albicans Assessment and Plan Plan: Assessment: 1. Acute kidney injury secondary to ATN secondary to sepsis/shock. Status post hemodialysis this admission. Renal function worsening due to shock - cr 3.58. Oliguric now. 2. Disproportionally elevated BUN secondary to acute kidney injury and steroids. 3. Volume overload. Improved with diuresis. 4. Acute hypoxic respiratory failure secondary to pneumonia and fluid overload. 5. Pneumonia maintained on antibiotics. Worsening leukocytosis - ID following. 6. History of renal carcinoma status post right partial nephrectomy in November 2019. Urology following. 7. Hypernatremia from free water diuresis and lack of oral water intake. Resolved. Plan: 10 units IV regular insulin. He will also be started on an insulin drip. Maintain tube feeds. Stop free water flushes. 3 A of sodium bicarb IV push now. Lasix 80 mg IV once now. Type blood sugar control. Insulin drip will be started. Avoid nephrotoxins. Wean FiO2 and vasopressors. With worsening renal function, hyperkalemia and oliguria, plan for hemodialysis today and again tomorrow. Patient's femoral dialysis catheter also needs to be exchanged. Discussed with vascular surgery.
[2020-12-22] MEDS: predniSONE 20 MG TAB PEG/G-TUBE SCH (08:52)
[2020-12-22] MEDS: CHOLECALCIFEROL 25 MCG (1000 IU) TABLET PO SCH (08:52)
[2020-12-22] MEDS: ZINC SULFATE 220 MG CAP PO SCH (08:52)
[2020-12-22] MEDS: VANCOMYCIN ORAL SOLUTION 250 MG/5 ML BOTTLE PO SCH ×4 (08:52→22:43)
[2020-12-22] MEDS: CHLORHEXIDINE GLUCONATE 15 ML CUP MUCOUS MEM SCH ×2 (08:52→21:39)
[2020-12-22] MEDS: GABAPENTIN 300 MG CAP PO SCH (08:52)
[2020-12-22] MEDS: SENNOSIDES 8.6 MG TAB PO SCH ×2 (08:52→21:37)
[2020-12-22] MEDS: PANTOPRAZOLE 40 MG/10 ML VIAL IVP SCH (08:52)
[2020-12-22] MEDS: ENOXAPARIN 30 MG/0.3 ML SYRINGE SQ SCH ×2 (10:24→21:35)
[2020-12-22 10:35] LABS: Glucose,Whole Blood 239 mg/dL (75-99)
--- NOTE | 2020-12-22 10:38 | P.PN ---
Subjective Progress Note Date: 12/22/20 Principal diagnosis: left renal mass Acute kidney injury Fluid overload Acute on chronic hypoxic respiratory failure with worsening status septic shock Bilateral gram-negative pneumonia due to ESBL E. coli Acute kidney injury Hyperkalemia Uncontrolled diabetes and hyperglycemia Pulmonary fibrosis due to prior extensive COVID-19 pneumonia Sepsis and fever of unknown region Generalized weakness and medical debility Asbestosis lung Advanced diabetes mellitus with hyperglycemia Chronic kidney disease stage III 12/22/2020, patient seen eval examined during the rounds labs reviewed medications reviewed, patient remains on full ventilator support with assist control, weaning trial have been held because of worsening renal functions and renal failure, also superinfection with C. difficile colitis, he has been off of the propofol drip for almost 48 hours mental status remains marginal moans intermittently but no opening of the eyes on verbal this response is present, hemodynamic status is marginal on levo fed 0.3 mics per kilogram per minute, keep the map over 65 and above, patient is being planned for dialysis later on, labs reviewed white cell count is continue to go down is 44,000, hemoglobin and hematocrit is stable is 15 and 47, ABG revealed pH of 7.3 pCO2 44 pO2 81, sodium is 137M6.0, BUN pending/creatinine is 3.58, patient sugar is running to 300-400 range insulin drip is being started patient remains on Flagyl and oral vancomycin, IV steroids are being changed to oral prednisone, chest x-ray reviewed bilateral infiltrate overall stable, the central line appears to be pulled off but however as per discussion with RN and is still working well will get peripheral IV's, we'll continue to hold weaning telemetry mental status improved, dialysis and hemodynamics improve, and C. difficile colitis, critical care time 35 minutes 12/21/2020, patient seen eval examined during the rounds labs reviewed medications reviewed care plan discussed, respiratory status remains stable however patient is spiking a fever, overnight patient was afebrile, new problem is noted to be C. difficile colitis patient started on Flagyl however vancomycin need to be added as well patient remains on broad-spectrum antibiotics, vent setting include assist control tidal volume of 500 PEEP of 5, oxygen saturation is 90-94%, pancultures pending so far no growth, computed tomography scan of the chest abdominal and pelvis findings noted with the persistent finding of complex cyst on the right kidney basal atelectasis and infiltrate, 7 from a tree changes and pelvic mesentery, white cell count came down to 47,000, potassium is 5.3, BUN/creatinine 159 2.69, patient has been on levo fed drip 12/20/2020, patient does open her his eyes intermittently, off of propofol, tolerating tube feed well, no obvious distress is present, patient has been on CPAP 5 and pressure support 10, rate is in mid 20s, spontaneous tidal volume is 500-550, no obvious distress present, pressure support lowered to 5 rate remains along with tidal volume remains stable, patient is on insulin drip, plan to keep on CPAP and pressure support throughout the day has tolerated then will put assist control at nighttime, then will repeat the process in the morning again, we'll get arterial blood gas, WBC count is up to 54,000, arterial blood gas stable pH is 7.45 pCO2 48 pO2 of 73, BUN/creatinine up to 133 and 1.93, patient having low-grade fever, will do aguilar culture as well as do the computed tomography scan of the chest abdominal and pelvis without dye 12/19/2020, patient seen eval examined during the rounds labs reviewed medications reviewed care plan discussed with the staff, attempted CPAP and pressure support trial with CPAP of 5 and pressure support of 10 and 50% oxygen, tolerated about 20 minutes, patient developed respiratory distress with tachycardia and tachypnea put back on assist control mode, patient is off of propofol, opens eyes, anxious however not following commands, patient remains on antifungal antibiotics as well as antibacterial, with IV steroids, patient back on assist control with a rate of 20 tidal volume of 500, +5 of PEEP, and 50% oxygen, adequate urine output, chest x-ray performed today continue to manifest parenchymal changes and opacities with cardiomegaly interstitial edema, white cell count is up to 31,000, arterial blood gas revealed pH of 7.47, pCO2 52, pO2 is 93, BUN/creatinine stable 123/1.48, adequate urine output has been noted, 12/18/2020, patient seen eval examined during the rounds labs reviewed medications reviewed care plan discussed industry status remains marginal but stable, remains on 50% oxygen and 5 of PEEP, saturation is 94%, patient has been on rate of 20 tidal volume of 500, patient remains on low-dose propofol, discussed with staff at length plan is to taper and DC the propofol given a sedation holiday if tolerated well and arousable will do weaning trials tomorrow, chest x-ray continued to show bilateral partial infiltrates and small effusion stable lines and tubes, arterial blood gas stable with pH of 7.48 pCO2 49 and pO2 91, white cell count is up to 20,000, BUN/creatinine 128/ 1.78 patient has been started on IV antifungal, 12/17/2020, patient seen eval examined during the rounds labs reviewed medications reviewed care plan discussed, respiratory status slowly improving, FiO2 down to 50% saturation is 94%, PEEP is down to 8, patient remains on propofol 20 mics, arterial blood gas indicated above respiratory and metabolic alkalosis, patient has been having adequate urine output, Lasix drip has been discontinued, remains on broad-spectrum antibiotics and IV fluids, bland overall today is to taper down the sedation give sedation holidays decrease the respiratory rate to 20 and decrease the PEEP to 5, will assess mental status once awake slow weaning to be continued, WBC count 16,700, hemoglobin and hematocrit stable, arterial blood gas revealed pH is 7.5 pCO2 42 pO2 of 83, BUN /creatinine remains 129 and 1.84 overall remains stable in last 48 hours 12/16/2020, patient seen and evaluated examined, sedated with propofol drip and fentanyl drip, able to titrate oxygen down to 40% however could not drop to keep less than 8, oxygen saturation remains marginal at 88-90%, urine output is adequate up to 300 mL/h, remains on Lasix strip, generalized anasarca is present, off of that hemodialysis for last 48 hours patient appears to be in diuretic phase of acute kidney injury discussed with the staff at length, need to improve oxygen prior to lowering down the PEEP, continue auto diuresis with Lasix strip, however we'll titrate sedation down, will DC the fentanyl drip, continue propofol, fentanyl will be used as needed, ventilator setting remains stable currently on assist control rate of 30, tidal volume 550, PEEP of 8, oxygen is 40%, labs reviewed white cell count 15,800, hemoglobin and hematocrit is stable 13 and 38, arterial blood gas revealed pH of 7.48 pCO2 42 pO2 62, a line is out, BUN/creatinine is 120 and 2.13, 12/14/2020, patient seen eval examined during the rounds overall respiratory status remains marginal patient is a however down to 50% oxygen saturation is 93%, he is sedated he is off of medical paralysis, currently is on propofol and fentanyl drip, vent setting is stable remains on assist control rate of 30 tidal volume 550, PEEP is 10 FiO2 is 50%, patient had a started making urine he is hemodialysis 2 [id number] currently is on 10 mg Lasix strip, labs and radiographic studies reviewed, x-ray shows diffuse bilateral infiltrate and no s ignificant change, arterial blood gas significantly improved pH is 7.35 pCO2 47 pO2 87, white cell count down to 11,000, 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 new mass has been noted, urology has been following pending further evaluation until he stabilized 12/13/2020, patient seen eval examined during the rounds labs reviewed medications reviewed care plan discussed, at industry status the remains marginal 70% oxygen, patient remains on PEEP of 10, tidal volume is 550, rate is 30, ABG reviewed this morning slightly better, patient remains on Nimbex along with fentanyl and propofol, can taper and DC the Nimbex drip, patient had the first episode of hemodialysis yesterday over 2 L I've been removed however patient did require vasopressors during dialysis, currently undergoing second course of hemodialysis again back on levo fed postdialysis yesterday came off of U for drip without any problem issues, patient had ultrasound done which showed left-sided renal mass versus bowel shadow urology has been consulted, patient remains on broad-spectrum antibiotics labs reviewed x-ray reviewed care plan discussed with the staff at length 12/12/2020, patient seen eval examined during the rounds labs reviewed medications reviewed patient remains sedated and medically paralyzed, patient is on the propofol which is down to 40 mics, NIMBEX AND FENTANYL DRIP, HEMODYNAMIC STATUS IS STABLE OFF OF VASOPRESSORS, BLOOD PRESSURE STABLE, respiratory status remains very marginal along with fluid overload and anasarca attempted Lasix strip patient did not respond very well, patient remains on assist control with a rate of 30 tidal volume of 550, 10 of PEEP oxygen is 70%, unable to wean it down saturations marginal 91% only, peak airway pressure up into high 30s now persistent with poor compliance of the chest also component of fluid overload, labs reviewed white cell count remains stable 13,000, hemoglobin stable platelet count is 206,000, ABG revealed pH of 7.21, pCO2 50, pO2 72, sodium 138 production continued to be up to 6.3, BUN and creatinine increase to 96 and 2.66, 12/11/2020, patient seen eval reexamined during the rounds labs reviewed medi cations reviewed care plan discussed, respiratory status the remains marginal however patient started desaturating earlier this morning has a significant amount of respiratory and metabolic acidosis as well, patient has been +3 L in the last 24 hours, discussed with the renal service about increasing diuretics or possibly starting on bicarb drip, renal function however remains stable, patient is sedated and medically paralyzed with fentanyl propofol Nimbex, discussed with staff about lowering down propofol drip to 30-40 mics, chest x- ray from today reviewed consistent with fluid overload fluid appears to be tracking into right major fissure, overall not much change from previous x-ray, patient remains on ventilator setting current setting includes assist control rate of 30, tidal volume of 550, FiO2 increase from 60% to 70%, sugars elevated have been on sliding scale, patient is tolerating tube feed fairly well, patient also noted to have progressive developing anasarca, noted labs white cell count continue to go down to 13,000, arterial blood gas continued magnificent respiratory and metabolic acidosis, significant component of diffusion impairment, hyperkalemia with potassium was 6.1, 12/10/2020, patient seen eval examined in the ICU, he remains intubated and medically sedated and paralyzed on the propofol, name backs and fentanyl drip, levo fed is now came off after fluid boluses, patient has significant metabolic acidosis due to multifactorial processes including acute kidney injury pneumonia and the vasopressors, patient has been on bicarb drip, being adjusted, to feed is in process, hemodynamic status is slightly better, FiO2 is started down to 70%, underwent setting includes assist control rate of 30 to volume of 550 10 of PEEP, arterial blood gases reviewed pH 7.14 pCO2 51 patient was given 1 amp of bicarb with the bicarb drip white cell count is down to 18,800, hemodynamic status slightly stable than before, overall plan is to continue to come down oxygen monitor renal functions closely monitor hyperkalemia, repeat chemistry pending for later on today 12/09/2020, patient seen eval examined continued to have marginal hemodynamics and respiratory status, patient sedated medically paralyzed with Nimbex drip, propofol, fentanyl drip, arterial blood gases done this morning reveal severe metabolic and respiratory acidosis ventilator have been adjusted now new ventricular setting includes assist control rate of 30 to volume of 550 PEEP remains 10 oxygen is down to 90%, patient now on levo fed, we'll try to taper down the levo fed by giving fluids S patient is volume depleted as well and lowering down propofol aim to bring down propofol to 30-40 mics in next 24 hours, fluid will be given 100 mL an hour continuous with fluid boluses boluses of 500 mL/h for 2 hours, patient remains on meropenem, potassium noted to be elevated to 6.4, BUN/creatinine slightly up to 55 1.8, we'll give Kayexalate 2 doses, repeat BMP later on today 12/08/2020, patient seen eval examined during the rounds labs reviewed medications reviewed, critical care time spent 45 minutes, patient developed progressive increased respiratory distress was transferred to the ICU was intubated for respiratory distress, patient has dense bilateral infiltrate, sputum is positive for gram-negative rods, patient is hypotensive requiring fluid boluses likely will required vasopressors as well, for agitation has been placed on propofol for now has been on 75 need to be paralyzed, patient has been also started on fentanyl drip, patient has been on Cefepime for gram-negative pneumonia, final sputum culture have been pending, patient currently on full ventilator support with 100% oxygen and 10 of PEEP, rate is 26, breathing about 28-30, volume is 500, peak pressure in low 30s, blood pressure after the boluses 100/40, respiratory rate is 32, heart rate 81 temperature sats are 91%, 1 cell count is up to 23,000 hemoglobin is stable 14, d-dimer continue to go up 3.97, arterial blood gases revealed pH of 7.24 pCO2 58-year-old O2 of 80 8/2 an hour after on above ventilator setting, potentially was 5.5, BUN/creatinine 45 1.37, patient has a elevated inflammatory parameters including ferritin in 631, LDH is 1658 C-reactive protein 15.9 patient will need a central line, we will sedate and medically paralyzed, will start tube feed, monitor labs closely, patient will be started on Lovenox 30 mg subcu every 12 12/06/2020, patient seen eval reexamined labs reviewed medications reviewed care plan discussed, respiratory status remains marginal denies any chest pain, however more hypoxic currently on 15 L high flow oxygen, remains afebrile hemodynamically stable, oxygen saturation is 93%, check urgent pro-calcitonin as well as d-dimer, if d-dimer is elevated consider doing a VQ scan and duplex ultrasound lower extremity, we will also check an echocardiogram This is a 70-year-old male well-known to me patient has a severe diabetes mellitus and chronic kidney disease as baseline, 2 months ago patient was admitted to hospital with acute COVID-19 pneumonia and respiratory failure patient was on 100% oxygen and BiPAP but however successfully tapered down up to 4 L nasal cannula was discharged home patient did not came back for follow-up, for the last few days has been spiking fever more short of breath oxygen in increase to 5 L nasal cannula came into the hospital for further evaluation chest x-ray not much change his code went testing is negative, patient has been vaccinated for COVID-19 his most recent chest x-ray continued to show cardiomegaly chronic changes, no particular significant change from prior x- rays, patient does have a history of asbestosis lung however Objective - Vital Signs Vital signs: Vital Signs Temp 98.7 F 12/22/20 00:00 Pulse 74 12/22/20 07:00 Resp 20 12/22/20 07:00 BP 97/63 12/22/20 07:00 Pulse Ox 95 12/22/20 07:00 Intake & Output 12/21/20 12/22/20 12/22/20 18:59 06:59 18:59 Intake Total 2729.354 1700.254 210.973 Output Total 170 127 10 Balance 2559.354 1573.254 200.973 Intake: IV 1090 240 20 Ceftaroline Fosamil 400 250 mg In Sodium Chloride 0.9 % 250 ml @ 250 mls/hr IVPB Q12HR [facility] Rx#: [id number] Sodium Chloride 0.9% 1, 240 240 20 000 ml @ 20 mls/hr IV . Q24H [facility] Rx#:[id number] metroNIDAZOLE-NS PMX 500 600 mg In Saline 1 100ml.bag @ 100 mls/hr IVPB Q8HR [facility] Rx#:[id number] Intake, IV Titration 659.354 580.254 110.973 Amount Insulin Regular 100 unit 5.505 In Sodium Chloride 0.9% 100 ml @ Per Protocol IV .Q0M [facility] Rx#:[id number] Norepinephrine 4 mg In 653.849 222.254 Sodium Chloride 0.9% 250 ml @ 0.05 MCG/KG/MIN 22. 034 mls/hr IV .[id number] [facility] Rx#:[id number] Norepinephrine 8 mg In 258.000 110.973 Sodium Chloride 0.9% 250 ml @ 0.05 MCG/KG/MIN 11. 191 mls/hr IV .Q23H4M [facility] Rx#:[id number] metroNIDAZOLE-NS PMX 500 100 mg In Saline 1 100ml.bag @ 100 mls/hr IVPB Q8HR [facility] Rx#:[id number] Oral 100 Tube Feeding 330 330 30 Other 550 550 50 Output: Urine 170 127 10 Other: Voiding Method Indwelling Catheter Indwelling Catheter ABP, PAP, CO, CI - Last Documented Arterial Blood Pressure 124/55 - Exam - Constitutional General appearance: sedated on full ventilator support - Neck Neck: normal ROM Carotids: bilateral: upstroke normal Thyroid: bilateral: normal size - Respiratory Respiratory: bilateral: diminished, rales - Cardiovascular Rhythm: regular Heart sounds: normal: S1, S2 - Gastrointestinal General gastrointestinal: soft - Integumentary Integumentary: normal turgor - Neurologic Neurologic: CNII-XII intact - Musculoskeletal Musculoskeletal: gait normal, generalized weakness, strength equal bilaterally - Psychiatric Psychiatric: sedated on full ventilator support - Labs CBC & Chem 7: 12/22/20 04:48 12/22/20 04:48 Labs: Abnormal Lab Results - Last 24 Hours (Table) 12/21/20 12/21/20 12/21/20 Range/Units 11:42 15:56 20:28 WBC (3.8-10.6) k/uL Neutrophils # (1.3-7.7) k/uL Lymphocytes # (1.0-4.8) k/uL Monocytes # (0-1.0) k/uL ABG pH (7.35-7.45) ABG pO2 (83-108) mmHg Potassium (3.5-5.1) mmol/L Carbon Dioxide (22-30) mmol/L Creatinine (0.66-1.25) mg/dL Glucose (74-99) mg/dL POC Glucose (mg/dL) 241 H 418 H 380 H (75-99) mg/dL Calcium (8.4-10.2) mg/dL Alkaline Phosphatase (38-126) U/L Total Protein (6.3-8.2) g/dL Albumin (3.5-5.0) g/dL 12/21/20 12/22/20 12/22/20 Range/Units 23:52 04:06 04:48 WBC 44.7 H (3.8-10.6) k/uL Neutrophils # 42.1 H (1.3-7.7) k/uL Lymphocytes # 0.5 L (1.0-4.8) k/uL Monocytes # 1.6 H (0-1.0) k/uL ABG pH (7.35-7.45) ABG pO2 (83-108) mmHg Potassium (3.5-5.1) mmol/L Carbon Dioxide (22-30) mmol/L Creatinine (0.66-1.25) mg/dL Glucose (74-99) mg/dL POC Glucose (mg/dL) 406 H 371 H (75-99) mg/dL Calcium (8.4-10.2) mg/dL Alkaline Phosphatase (38-126) U/L Total Protein (6.3-8.2) g/dL Albumin (3.5-5.0) g/dL 12/22/20 12/22/20 Range/Units 04:48 04:55 WBC (3.8-10.6) k/uL Neutrophils # (1.3-7.7) k/uL Lymphocytes # (1.0-4.8) k/uL Monocytes # (0-1.0) k/uL ABG pH 7.30 L (7.35-7.45) ABG pO2 81 L (83-108) mmHg Potassium 6.0 H (3.5-5.1) mmol/L Carbon Dioxide 15 L (22-30) mmol/L Creatinine 3.58 H (0.66-1.25) mg/dL Glucose 390 H (74-99) mg/dL POC Glucose (mg/dL) (75-99) mg/dL Calcium 7.8 L (8.4-10.2) mg/dL Alkaline Phosphatase 151 H (38-126) U/L Total Protein 4.4 L (6.3-8.2) g/dL Albumin 2.1 L (3.5-5.0) g/dL Microbiology - Last 24 Hours (Table) 12/19/20 20:30 Gram Stain - Final Sputum Sputum Culture - Final Anamaria albicans 12/19/20 16:57 Blood Culture - Preliminary Blood No Growth after 48 hours 12/20/20 12:00 Urine Culture - Final Urine,Catheterized Assessment and Plan Assessment: C. difficile colitis Elevated WBC likely related to above with fever Acute respiratory failure with difficulty to wean due to marginal oxygenation, withdraws the sedation ventilator adjustment acute kidney injury with fluid overload and anasarca, patient being planned for hemodialysis Hyperglycemia uncontrolled diabetes on insulin drip left renal mass with history of renal cell clear carcinoma, status post partial elective nephrectomy in 2019 gram-negative pneumonia due to ESBL E. coli Severe sepsis and septic shock due to gram-negative pneumonia Acute on chronic hypoxic and hypercapnic respiratory failure Acute lung injury and ARDS Developing progressive right-sided pleural effusion Acute kidney injury hyperkalemia Metabolic and respiratory acidosis Uncontrolled diabetes Pulmonary fibrosis due to extensive recentCOVID-19 pneumonia Asbestosis lung pulmonary nodule Advanced diabetes mellitus with hyperglycemia Chronic kidney disease stage III Plan: Reviewed computed tomography scan of the chest abdomen pelvis without dye, pancultures, Continue Flagyl and oral vancomycin through the OG tube Hold on weaning trials for now Hemodialysis plan for later on today Withdraw sedation assess mental status ventilator adjustment Follow renal functions closely Continue broad-spectrum antibiotics Ventilator adjustment as per orders as above patient status post second course of hemodialysis Urology evaluation Patient is off of Nimbex drip, propofol drip ventilator adjustment We'll put new left IJ central line tomorrow hold Lovenox tonight and in the morning Lovenox 30 mg subcu every 12 tube feed as per protocol Labs chest x-ray and ABG in the morning Off of Vasopressors Follow-up on Aguilar cultures including sputum urine and blood continue antibiotics Oral prednisone evaluation of pulmonary nodule once stabilized Time with Patient: Greater than 30
--- NOTE | 2020-12-22 10:58 | P.PN ---
Subjective Patient is being treated for secondary bacterial pneumonia and he was recently discharged after he was treated for Covid 19. 8. Patient was intubated around 08 of December. Patient is found to have ESBL in the sputum. Patient is being treated for post Covid gram-negative pneumonia and found to have ESBL E. coli in the sputum. Patient was on meropenem and completed therapy with meropenem without any significant improvement because of which patient was started on broad-spectrum antibiotic that he cefteroline when then patient started having diarrhea and patient had leukocytosis with white blood cell count going up from 20,000-54,000 patient is found to have C. diff colitis. was also started on hemodialysis during this hospitalization which is again secondary to acute tubular necrosis from severe sepsis. Patient is presently on 50% FiO2 PEEP of 5 patient's sedation was turned of about a day ago in spite of which patient still doesn't have any purposeful movements. Patient does have brainstem reflexes. Patient prognosis is extremely poor patient was treated aggressively without any significant improvement with more and more complications including C. diff colitis, will discuss with the family regarding overall goals of care. Patient does have multiorgan dysfunction and patient is in and out of septic shock and was requiring norepinephrine on and off. Patient's rhythm is also showing Anamaria remains on systemic steroids patient is also on metronidazole possibly for C. diff. Patient is ALLERGIC to to vancomycin. 12/22/2020 Patient is still having diarrhea. Patient still remains on norepinephrine. In spite of disc herniation of sedation patient is barely responsive this time of movements. His overall clinical condition is guarded and his overall prognosis is poor patient is more appropriate for hospice at this point of time. Patient remains intubated with FiO2 of around 40% and PEEP of 5. Patient's inguinal Robbin catheter is being exchanged over the guidewire. Patient potassium is elevated creatinine continued to go up barely has any urine output. Patient actually received Lasix today Review of systems: Unable to obtain due to his clinical condition All inpatient medications were reviewed and appropriate changes in these medications as dictated in the interval history and assessment and plan. Objective - Vital Signs Vital signs: Vital Signs Temp 98.7 F 12/22/20 00:00 Pulse 74 12/22/20 07:00 Resp 20 12/22/20 07:00 BP 97/63 12/22/20 07:00 Pulse Ox 95 12/22/20 07:00 Intake & Output 12/21/20 12/22/20 12/22/20 18:59 06:59 18:59 Intake Total 2729.354 1700.254 333.176 Output Total 170 127 10 Balance 2559.354 1573.254 323.176 Intake: IV 1090 240 20 Ceftaroline Fosamil 400 250 mg In Sodium Chloride 0.9 % 250 ml @ 250 mls/hr IVPB Q12HR [facility] Rx#: [id number] Sodium Chloride 0.9% 1, 240 240 20 000 ml @ 20 mls/hr IV . Q24H [facility] Rx#:[id number] metroNIDAZOLE-NS PMX 500 600 mg In Saline 1 100ml.bag @ 100 mls/hr IVPB Q8HR [facility] Rx#:[id number] Intake, IV Titration 659.354 580.254 233.176 Amount Insulin Regular 100 unit 5.505 In Sodium Chloride 0.9% 100 ml @ Per Protocol IV .Q0M [facility] Rx#:[id number] Norepinephrine 4 mg In 653.849 222.254 Sodium Chloride 0.9% 250 ml @ 0.05 MCG/KG/MIN 22. 034 mls/hr IV .[id number] [facility] Rx#:[id number] Norepinephrine 8 mg In 258.000 233.176 Sodium Chloride 0.9% 250 ml @ 0.05 MCG/KG/MIN 11. 191 mls/hr IV .Q23H4M [facility] Rx#:[id number] metroNIDAZOLE-NS PMX 500 100 mg In Saline 1 100ml.bag @ 100 mls/hr IVPB Q8HR [facility] Rx#:[id number] Oral 100 Tube Feeding 330 330 30 Other 550 550 50 Output: Urine 170 127 10 Other: Voiding Method Indwelling Catheter Indwelling Catheter ABP, PAP, CO, CI - Last Documented Arterial Blood Pressure 124/55 - Exam PHYSICAL EXAMINATION: GENERAL: Patient is intubated sedated HEENT: Pupils are round and equally reacting to light. EOMI. No scleral icterus. No conjunctival pallor. Normocephalic, atraumatic. No pharyngeal erythema. No thyromegaly. CARDIOVASCULAR: S1 and S2 present. No murmurs, rubs, or gallops. PULMONARY: Sounds and diminished air entry into bilateral lung tavarez ABDOMEN: Soft, nontender, nondistended, normoactive bowel sounds. No palpable organomegaly. MUSCULOSKELETAL: No joint swelling or deformity. EXTREMITIES: No cyanosis, clubbing, or pedal edema. NEUROLOGICAL: Sedated. SKIN: No rashes. - Labs CBC & Chem 7: 12/22/20 04:48 12/22/20 04:48 Labs: Abnormal Lab Results - Last 24 Hours (Table) 12/21/20 12/21/20 12/21/20 Range/Units 11:42 15:56 20:28 WBC (3.8-10.6) k/uL Neutrophils # (1.3-7.7) k/uL Lymphocytes # (1.0-4.8) k/uL Monocytes # (0-1.0) k/uL ABG pH (7.35-7.45) ABG pO2 (83-108) mmHg Potassium (3.5-5.1) mmol/L Carbon Dioxide (22-30) mmol/L Creatinine (0.66-1.25) mg/dL Glucose (74-99) mg/dL POC Glucose (mg/dL) 241 H 418 H 380 H (75-99) mg/dL Calcium (8.4-10.2) mg/dL Alkaline Phosphatase (38-126) U/L Total Protein (6.3-8.2) g/dL Albumin (3.5-5.0) g/dL 12/21/20 12/22/20 12/22/20 Range/Units 23:52 04:06 04:48 WBC 44.7 H (3.8-10.6) k/uL Neutrophils # 42.1 H (1.3-7.7) k/uL Lymphocytes # 0.5 L (1.0-4.8) k/uL Monocytes # 1.6 H (0-1.0) k/uL ABG pH (7.35-7.45) ABG pO2 (83-108) mmHg Potassium (3.5-5.1) mmol/L Carbon Dioxide (22-30) mmol/L Creatinine (0.66-1.25) mg/dL Glucose (74-99) mg/dL POC Glucose (mg/dL) 406 H 371 H (75-99) mg/dL Calcium (8.4-10.2) mg/dL Alkaline Phosphatase (38-126) U/L Total Protein (6.3-8.2) g/dL Albumin (3.5-5.0) g/dL 12/22/20 12/22/20 12/22/20 Range/Units 04:48 04:55 10:33 WBC (3.8-10.6) k/uL Neutrophils # (1.3-7.7) k/uL Lymphocytes # (1.0-4.8) k/uL Monocytes # (0-1.0) k/uL ABG pH 7.30 L (7.35-7.45) ABG pO2 81 L (83-108) mmHg Potassium 6.0 H (3.5-5.1) mmol/L Carbon Dioxide 15 L (22-30) mmol/L Creatinine 3.58 H (0.66-1.25) mg/dL Glucose 390 H (74-99) mg/dL POC Glucose (mg/dL) 239 H (75-99) mg/dL Calcium 7.8 L (8.4-10.2) mg/dL Alkaline Phosphatase 151 H (38-126) U/L Total Protein 4.4 L (6.3-8.2) g/dL Albumin 2.1 L (3.5-5.0) g/dL Microbiology - Last 24 Hours (Table) 12/19/20 20:30 Gram Stain - Final Sputum Sputum Culture - Final Anamaria albicans 12/19/20 16:57 Blood Culture - Preliminary Blood No Growth after 48 hours 12/20/20 12:00 Urine Culture - Final Urine,Catheterized Assessment and Plan Plan: - septic shock: likely due to secondary bacterial pneumonia, patient's (a positive for E. coli which is ESBL E. coli. Patient most probably has a post Covid bacterial pneumonia. COVID-19 PCR is negative on this hospitalization, pulmonary and infectious disease are following the patient. Patient is presently on Cefterolin, was on meropenem without any significant in his sepsis status. Patient completed course of meropenem -C. diff colitis: Patient is on metronidazole. Infectious disease is following the patient Patient was on Antifungal agents as sputum culture showing Anamaria albicans. She is presently not on any antifungal agents. -Acute hypoxic respiratory failure secondary to septic shock. -Acute renal failure secondary to acute tubular necrosis from septic shock, patient is presently on hemodialysis scheduled -elevated d-dimer secondary to pneumonia . -Acute on chronic hypoxic respiratory failure secondary to pneumonia. -History of asbestosis -Chronic kidney disease stage II to 3. Probable diabetic nephropathy --History of DVT in the past -Type 2 diabetes mellitus: Well controlled, continue with present regimen of long-acting insulin and short-acting insulin every 4 hours. Patient is also on systemic steroids as per pulmonary. -Hypertension -Sleep apnea -Diabetic peripheral neuropathy -History of renal mass. Status post nephrectomy in 2019. -DVT prophylaxis with subcutaneous heparin
--- NOTE | 2020-12-22 11:34 | PCN ---
PROCEDURE NOTE PREOPERATIVE DIAGNOSIS: Acute on chronic renal failure. PROCEDURE PERFORMED: Placement of 30 cm dialysis catheter, right femoral approach. This patient had a dialysis catheter placed in the past. I was called in for placement of a new catheter. The patient's groin was prepped and drapes were applied in the usual sterile manner. Guide was passed through the previous catheter and after that we removed old catheter out and placed the 30 cm dialysis catheter on the top of the guidewire, flushed with heparin saline and hep-locked, secured with 3-0 nylon. Patient tolerated the procedure well. MMODL / IJN: [id number] /
[2020-12-22 11:44] LABS: Glucose,Whole Blood 255 mg/dL (75-99)
[2020-12-22] MEDS: INSULIN REGULAR 100 UNIT in SODIUM CHLORIDE 0.9% 100 ML IV SCH (11:46)
[2020-12-22 12:51] LABS: Glucose,Whole Blood 217 mg/dL (75-99)
[2020-12-22 13:34] LABS: Potassium 5.5 mmol/L (3.5-5.1)
[2020-12-22] MEDS ORDERED: HEPARIN SODIUM 1,000 UN/ML (10ML VL) ONE (14:40)
[2020-12-22 15:06] LABS: Glucose,Whole Blood 152 mg/dL (75-99)
[2020-12-22 16:53] LABS: Glucose,Whole Blood 128 mg/dL (75-99)
[2020-12-22 18:08] LABS: Glucose,Whole Blood 109 mg/dL (75-99)
--- NOTE | 2020-12-22 18:30 | PN ---
PROGRESS NOTE DATE OF SERVICE: 12/22/2020 REASON FOR FOLLOWUP: C difficile colitis. INTERVAL HISTORY: The patient is currently afebrile. The patient has been started back on dialysis. However, the patient is not tolerating it as he dropped his blood pressure. Pressor has been increased. Has only 1 loose stool today. No apparent secretions in the ET or any other changes reported by the nursing staff. PHYSICAL EXAMINATION: Blood pressure is 84/57, pulse of 89, temperature 98.5. He is 94% on 50% FiO2. General description is an elderly male intubated on the vent. Respiratory system: Unlabored breathing, decreased breath sounds at the bases. HEART: S1, S2. Regular rate and rhythm. ABDOMEN: Soft, no distention, guarding or rigidity. EXTREMITIES: Trace edema of the feet. LABS: ( ) 5.5, white count down to 44.7. Repeat blood culture so far negative. DIAGNOSTIC IMPRESSION AND PLAN: Patient with sepsis, multifactorial in this patient who did have a C. diff colitis. The patient has been started on oral vancomycin. The patient has tolerated it so far along with IV Flagyl to continue. Overall prognosis extremely guarded. Continue supportive care. MMODL / IJN: [id number] /
[2020-12-22 20:03] LABS: Glucose,Whole Blood 106 mg/dL (75-99)
[2020-12-22 20:15] LABS: Glucose,Whole Blood 143 mg/dL (75-99)
[2020-12-22 21:18] LABS: Glucose,Whole Blood 156 mg/dL (75-99)
[2020-12-22 22:46] LABS: Glucose,Whole Blood 135 mg/dL (75-99)
[2020-12-23 00:29] LABS: Glucose,Whole Blood 129 mg/dL (75-99)
[2020-12-23] MEDS: NOREPINEPHRINE 8 MG in SODIUM CHLORIDE 0.9% 250 ML IV SCH ×4 (01:14→06:44)
[2020-12-23 02:15] LABS: Glucose,Whole Blood 147 mg/dL (75-99)
[2020-12-23] MEDS: metroNIDAZOLE-NS PMX 500 MG in SALINE 1 100ML.BAG IVPB SCH ×2 (02:17→08:30)
[2020-12-23 04:03] LABS: Basophils # (A) 0.2 k/uL (0-0.2); Basophils % (A) 1 %; Eosinophils % (A) 0 %; HGB 16.3 gm/dL (13.0-17.5); Lymphocytes # (A) 0.5 k/uL (1.0-4.8); Lymphocytes % (A) 1 %; MCH 28.8 pg (25.0-35.0); MCHC 31.3 g/dL (31.0-37.0); Mean Platelet Volume 9.3; Monocytes # (A) 2.2 k/uL (0-1.0); Monocytes % (A) 5 %; Neutrophils # (A) 39.2 k/uL (1.3-7.7); Neutrophils % (A) 92 %; Platelet Count 196 k/uL (150-450); RBC 5.65 m/uL (4.30-5.90); WBC 42.8 k/uL (3.8-10.6)
[2020-12-23 04:27] LABS: Glucose,Whole Blood 183 mg/dL (75-99)
[2020-12-23 05:19] LABS: ABG Base Excess -8.7 mmol/L; ABG HCO3 18 mmol/L (21-25); ABG Oxygen Saturation 90.9 % (94-97); ABG PCO2 38 mmHg (35-45); ABG PH 7.29 (7.35-7.45); ABG PO2 70 mmHg (83-108); ABG TCO2 19 mmol/L (19-24); Allen Test Performed? Yes
[2020-12-23 06:01] LABS: Glucose,Whole Blood 191 mg/dL (75-99)
[2020-12-23 07:17] LABS: Glucose,Whole Blood 186 mg/dL (75-99)
[2020-12-23 07:17] LABS: Albumin 2.4 g/dL (3.5-5.0); Calcium 7.5 mg/dL (8.4-10.2)
--- NOTE | 2020-12-23 07:18 | XR ---
EXAMINATION TYPE: XR chest 1V portable DATE OF EXAM: 12/23/2020 CLINICAL HISTORY: Difficulty breathing progress study. TECHNIQUE: Single AP portable semiupright view of the chest is obtained. COMPARISON: Chest x-ray from one day earlier and older studies. FINDINGS: Stable endotracheal and orogastric tubes. Stable right internal jugular central venous cat heter. Persistent cardiomegaly with atherosclerotic thoracic aorta. Persistent bibasilar and peripheral incr eased opacities. Osseous structures are intact. IMPRESSION: Cardiomegaly and chronic parenchymal changes with persistent bilateral multifocal periphe ral and basilar opacities redemonstrated. No significant change from one day earlier.
[2020-12-23] MEDS: SYMBICORT 160-4.5 MCG INHALER INHALATION SCH (07:26)
[2020-12-23] MEDS: ALBUTEROL HFA INHALER INHALATION PRN (07:27)
[2020-12-23 07:36] LABS: Potassium 6.3 mmol/L (3.5-5.1)
[2020-12-23] MEDS ORDERED: NOREPINEPHRINE 32 MG in SODIUM CHLORIDE 0.9% 218 ML IV SCH (08:00)
[2020-12-23] MEDS: INSULIN REGULAR 100 UNIT in SODIUM CHLORIDE 0.9% 100 ML IV SCH (08:26)
[2020-12-23] MEDS: CHOLECALCIFEROL 25 MCG (1000 IU) TABLET PO SCH (08:30)
[2020-12-23] MEDS: atenoloL 25 MG TAB PO SCH (08:30)
[2020-12-23] MEDS: predniSONE 20 MG TAB PEG/G-TUBE SCH (08:30)
[2020-12-23] MEDS: GABAPENTIN 300 MG CAP PO SCH (08:30)
[2020-12-23] MEDS: CHLORHEXIDINE GLUCONATE 15 ML CUP MUCOUS MEM SCH (08:30)
[2020-12-23] MEDS: PANTOPRAZOLE 40 MG/10 ML VIAL IVP SCH (08:31)
[2020-12-23] MEDS: ENOXAPARIN 30 MG/0.3 ML SYRINGE SQ SCH (08:31)
[2020-12-23] MEDS: ZINC SULFATE 220 MG CAP PO SCH (08:34)
[2020-12-23] MEDS: SENNOSIDES 8.6 MG TAB PO SCH (08:34)
[2020-12-23 08:37] LABS: Glucose,Whole Blood 200 mg/dL (75-99)
[2020-12-23] MEDS: VANCOMYCIN ORAL SOLUTION 250 MG/5 ML BOTTLE PO SCH (10:01)
[2020-12-23] MEDS ORDERED: METOPROLOL TARTRATE 5 MG/5 ML VIAL IVP ONE (10:28)
[2020-12-23] MEDS ORDERED: EPINEPHrine 10 ML SYRINGE (0.1 MG/ML) ONE (10:28)
[2020-12-23] MEDS ORDERED: SODIUM BICARB 8.4% 50 ML SYR (1 MEQ/ML) ONE ×2 (10:28→10:32)
[2020-12-23] MEDS ORDERED: CALCIUM CHLORIDE 100 MG/ML 10 ML SYRINGE ONE (10:28)
[2020-12-23] MEDS ORDERED: ADENOSINE 3 MG/ML 2 ML VIAL IVP ONE (10:28)
[2020-12-23 10:38] LABS: Glucose,Whole Blood 118 mg/dL (75-99)
--- NOTE | 2020-12-23 10:55 | P.EN ---
I responded to a CODE BLUE called by nursing staff on patient when he had cardiac arrest during dialysis. Upon my arrival, patient was getting high quality CPR. He received multiple rounds of IV epinephrine. 2 doses of bicarbonate. And one dose of calcium chloride. His rhythm was initially PEA but on subsequent pulse check he was noted to be in ventricular fibrillation. Patient was shocked twice with successful return of spontaneous circulation. His heart rate was noted to be in the 200-220 range on monitor worker. A 12- lead EKG ordered. Cost Report Clerk was in the room as well and he will take over patient's care.
[2020-12-23] MEDS ORDERED: SODIUM CHLORIDE 0.9% 50 ML with VASOPRESSIN 20 UNIT IVPB SCH ×2 (11:30)
--- NOTE | 2020-12-23 11:43 | P.PN ---
Subjective Progress Note Date: 12/23/20 Principal diagnosis: V. fib cardiac arrest Cardiopulmonary arrest left renal mass Acute kidney injury Fluid overload Acute on chronic hypoxic respiratory failure with worsening status septic shock Bilateral gram-negative pneumonia due to ESBL E. coli Acute kidney injury Hyperkalemia Uncontrolled diabetes and hyperglycemia Pulmonary fibrosis due to prior extensive COVID-19 pneumonia Sepsis and fever of unknown region Generalized weakness and medical debility Asbestosis lung Advanced diabetes mellitus with hyperglycemia Chronic kidney disease stage III 12/23/2020, patient seen eval examined patient had a cardiopulmonary arrest which is V. fib arrest initially patient went into asystole to asystole followed by a rhythm which was V. fib shocked 2 times patient was in sinus tachycardia patient went to ACLS protocol with high efficiency cardiac compression Cordran for 20-25 minutes, vasopressin has been added, this morning patient had a hemodialysis he was able to get 1-1/2 hour dialysis during dialysis than cardiac arrest occurred, daughter present at bedside have discussed with her at length about overall poor prognosis care plan discussed with her yesterday as well as per daughter patient's wishes were not to continue life support in case no obj ective evidence seen, patient remains very cold extremities, patient has been getting a liter of normal saline with that blood pressure improved, also on vasopressors in levo fed see flowsheet for detail labs from today reviewed chest x-ray reviewed ET tube has problems with air leak patient will probably require endotracheal tube change pending the decision of the family, white cell count remains elevated 42,000, arterial blood gases with pH of 7.29 pCO2 38 pO2 of 70, potassium is 6.3 from 5.5 yesterday, BUN/creatinine 158 and 4.1 12/22/2020, patient seen eval examined during the rounds labs reviewed medications reviewed, patient remains on full ventilator support with assist control, weaning trial have been held because of worsening renal functions and renal failure, also superinfection with C. difficile colitis, he has been off of the propofol drip for almost 48 hours mental status remains marginal moans intermittently but no opening of the eyes on verbal this response is present, hemodynamic status is marginal on levo fed 0.3 mics per kilogram per minute, keep the map over 65 and above, patient is being planned for dialysis later on, labs reviewed white cell count is continue to go down is 44,000, hemoglobin and hematocrit is stable is 15 and 47, ABG revealed pH of 7.3 pCO2 44 pO2 81, sodium is 137M6.0, BUN pending/creatinine is 3.58, patient sugar is running to 300-400 range insulin drip is being started patient remains on Flagyl and oral vancomycin, IV steroids are being changed to oral prednisone, chest x-ray reviewed bilateral infiltrate overall stable, the central line appears to be pulled off but however as per discussion with RN and is still working well will get peripheral IV's, we'll continue to hold weaning telemetry mental status improved, dialysis and hemodynamics improve, and C. difficile colitis, critical care time 35 minutes 12/21/2020, patient seen eval examined during the rounds labs reviewed medications reviewed care plan discussed, respiratory status remains stable however patient is spiking a fever, overnight patient was afebrile, new problem is noted to be C. difficile colitis patient started on Flagyl however vancomycin need to be added as well patient remains on broad-spectrum antibiotics, vent setting include assist control tidal volume of 500 PEEP of 5, oxygen saturation is 90-94%, pancultures pending so far no growth, computed tomography scan of the chest abdominal and pelvis findings noted with the persistent finding of complex cyst on the right kidney basal atelectasis and infiltrate, 7 from a tree changes and pelvic mesentery, white cell count came down to 47,000, potassium is 5.3, BUN/creatinine 159 2.69, patient has been on levo fed drip 12/20/2020, patient does open her his eyes intermittently, off of propofol, tolerating tube feed well, no obvious distress is present, patient has been on CPAP 5 and pressure support 10, rate is in mid 20s, spontaneous tidal volume is 500-550, no obvious distress present, pressure support lowered to 5 rate remains along with tidal volume remains stable, patient is on insulin drip, plan to keep on CPAP and pressure support throughout the day has tolerated then will put as sist control at nighttime, then will repeat the process in the morning again, we'll get arterial blood gas, WBC count is up to 54,000, arterial blood gas stable pH is 7.45 pCO2 48 pO2 of 73, BUN/creatinine up to 133 and 1.93, patient having low-grade fever, will do aguilar culture as well as do the computed tomography scan of the chest abdominal and pelvis without dye 12/19/2020, patient seen eval examined during the rounds labs reviewed medications reviewed care plan discussed with the staff, attempted CPAP and pressure support trial with CPAP of 5 and pressure support of 10 and 50% oxygen, tolerated about 20 minutes, patient developed respiratory distress with tachycardia and tachypnea put back on assist control mode, patient is off of propofol, opens eyes, anxious however not following commands, patient remains on antifungal antibiotics as well as antibacterial, with IV steroids, patient back on assist control with a rate of 20 tidal volume of 500, +5 of PEEP, and 50% oxygen, adequate urine output, chest x-ray performed today continue to manifest parenchymal changes and opacities with cardiomegaly interstitial edema, white cell count is up to 31,000, arterial blood gas revealed pH of 7.47, pCO2 52, pO2 is 93, BUN/creatinine stable 123/1.48, adequate urine output has been noted, 12/18/2020, patient seen eval examined during the rounds labs reviewed medications reviewed care plan discussed industry status remains marginal but stable, remains on 50% oxygen and 5 of PEEP, saturation is 94%, patient has been on rate of 20 tidal volume of 500, patient remains on low-dose propofol, discussed with staff at length plan is to taper and DC the propofol given a sedation holiday if tolerated well and arousable will do weaning trials tomorrow, chest x-ray continued to show bilateral partial infiltrates and small effusion stable lines and tubes, arterial blood gas stable with pH of 7.48 pCO2 49 and pO2 91, white cell count is up to 20,000, BUN/creatinine 128/ 1.78 patient has been started on IV antifungal, 12/17/2020, patient seen eval examined during the rounds labs reviewed medications reviewed care plan discussed, respiratory status slowly improving, FiO2 down to 50% saturation is 94%, PEEP is down to 8, patient remains on propofol 20 mics, arterial blood gas indicated above respiratory and metabolic alkalosis, patient has been having adequate urine output, Lasix drip has been discontinued, remains on broad-spectrum antibiotics and IV fluids, bland overall today is to taper down the sedation give sedation holidays decrease the respiratory rate to 20 and decrease the PEEP to 5, will assess mental status once awake slow weaning to be continued, WBC count 16,700, hemoglobin and hematocrit stable, arterial blood gas revealed pH is 7.5 pCO2 42 pO2 of 83, BUN/creatinine remains 129 and 1.84 overall remains stable in last 48 hours 12/16/2020, patient seen and evaluated examined, sedated with propofol drip and fentanyl drip, able to titrate oxygen down to 40% however could not drop to keep less than 8, oxygen saturation remains marginal at 88-90%, urine output is adequate up to 300 mL/h, remains on Lasix strip, generalized anasarca is present, off of that hemodialysis for last 48 hours patient appears to be in diuretic phase of acute kidney injury discussed with the staff at length, need to improve oxygen prior to lowering down the PEEP, continue auto diuresis with Lasix strip, however we'll titrate sedation down, will DC the fentanyl drip, continue propofol, fentanyl will be used as needed, ventilator setting remains stable currently on assist control rate of 30, tidal volume 550, PEEP of 8, oxygen is 40%, labs reviewed white cell count 15,800, hemoglobin and hematocrit is stable 13 and 38, arterial blood gas revealed pH of 7.48 pCO2 42 pO2 62, a line is out, BUN/creatinine is 120 and 2.13, 12/14/2020, patient seen eval examined during the rounds overall respiratory status remains marginal patient is a however down to 50% oxygen saturation is 93%, he is sedated he is off of medical paralysis, currently is on propofol and fentanyl drip, vent setting is stable remains on assist control rate of 30 tidal volume 550, PEEP is 10 FiO2 is 50%, patient had a started making urine he is hemodialysis 2 [id number] currently is on 10 mg Lasix strip, labs and radiographic studies reviewed, x-ray shows diffuse bilateral infiltrate and no significant change, arterial blood gas significantly improved pH is 7.35 pCO2 47 pO2 87, white cell count down to 11,000, 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 new mass has been noted, urology has been following pending further evaluation until he stabilized 12/13/2020, patient seen eval examined during the rounds labs reviewed medications reviewed care plan discussed, at industry status the remains marginal 70% oxygen, patient remains on PEEP of 10, tidal volume is 550, rate is 30, ABG reviewed this morning slightly better, patient remains on Nimbex along with fentanyl and propofol, can taper and DC the Nimbex drip, patient had the first episode of hemodialysis yesterday over 2 L I've been removed however patient did require vasopressors during dialysis, currently undergoing second course of hemodialysis again back on levo fed postdialysis yesterday came off of U for drip without any problem issues, patient had ultrasound done which showed left-sided renal mass versus bowel shadow urology has been consulted, patient remains on broad-spectrum antibiotics labs reviewed x-ray reviewed care plan discussed with the staff at length 12/12/2020, patient seen eval examined during the rounds labs reviewed medications reviewed patient remains sedated and medically paralyzed, patient is on the propofol which is down to 40 mics, NIMBEX AND FENTANYL DRIP, HEMODYNAMIC STATUS IS STABLE OFF OF VASOPRESSORS, BLOOD PRESSURE STABLE, respiratory status remains very marginal along with fluid overload and anasarca attempted Lasix strip patient did not respond very well, patient remains on assist control with a rate of 30 tidal volume of 550, 10 of PEEP oxygen is 70%, unable to wean it down saturations marginal 91% only, peak airway pressure up into high 30s now persistent with poor compliance of the chest also component of fluid overload, labs reviewed white cell count remains stable 13,000, hemoglobin stable platelet count is 206,000, ABG revealed pH of 7.21, pCO2 50, pO2 72, sodium 138 production continued to be up to 6.3, BUN and creatinine increase to 96 and 2.66, 12/11/2020, patient seen eval reexamined during the rounds labs reviewed medications reviewed care plan discussed, respiratory status the remains marginal however patient started desaturating earlier this morning has a significant amount of respiratory and metabolic acidosis as well, patient has been +3 L in the last 24 hours, discussed with the renal service about increasing diuretics or possibly starting on bicarb drip, renal function however remains stable, patient is sedated and medically paralyzed with fentanyl propofol Nimbex, discussed with staff about lowering down propofol drip to 30-40 mics, chest x-ray from today reviewed consistent with fluid overload fluid appears to be tracking into right major fissure, overall not much change from previous x-ray, patient remains on ventilator setting current setting includes assist control rate of 30, tidal volume of 550, FiO2 increase from 60% to 70%, sugars elevated have been on sliding scale, patient is tolerating tube feed fairly well, patient also noted to have progressive developing anasarca, noted labs white cell count continue to go down to 13,000, arterial blood gas continued magnificent respiratory and metabolic acidosis, significant component of diffusion impairment, hyperkalemia with potassium was 6.1, 12/10/2020, patient seen eval examined in the ICU, he remains intubated and medically sedated and paralyzed on the propofol, name backs and fentanyl drip, levo fed is now came off after fluid boluses, patient has significant metabolic acidosis due to multifactorial processes including acute kidney injury pneumonia and the vasopressors, patient has been on bicarb drip, being adjusted, to feed is in process, hemodynamic status is slightly better, FiO2 is started down to 70%, underwent setting includes assist control rate of 30 to volume of 550 10 of PEEP, arterial blood gases reviewed pH 7.14 pCO2 51 patient was given 1 amp of bicarb with the bicarb drip white cell count is down to 18,800, hemodynamic status slightly stable than before, overall plan is to continue to come down oxygen monitor renal functions closely monitor hyperkalemia, repeat chemistry pending for later on today 12/09/2020, patient seen eval examined continued to have marginal hemodynamics and respiratory status, patient sedated medically paralyzed with Nimbex drip, propofol, fentanyl drip, arterial blood gases done this morning reveal severe metabolic and respiratory acidosis ventilator have been adjusted now new ventricular setting includes assist control rate of 30 to volume of 550 PEEP remains 10 oxygen is down to 90%, patient now on levo fed, we'll try to taper down the levo fed by giving fluids S patient is volume depleted as well and lowering down propofol aim to bring down propofol to 30-40 mics in next 24 hours, fluid will be given 100 mL an hour continuous with fluid boluses boluses of 500 mL/h for 2 hours, patient remains on meropenem, potassium noted to be elevated to 6.4, BUN/creatinine slightly up to 55 1.8, we'll give Kayexalate 2 doses, repeat BMP later on today 12/08/2020, patient seen eval examined during the rounds labs reviewed medications reviewed, critical care time spent 45 minutes, patient developed progressive increased respiratory distress was transferred to the ICU was in tubated for respiratory distress, patient has dense bilateral infiltrate, sputum is positive for gram-negative rods, patient is hypotensive requiring fluid boluses likely will required vasopressors as well, for agitation has been placed on propofol for now has been on 75 need to be paralyzed, patient has been also started on fentanyl drip, patient has been on Cefepime for gram-negative pneumonia, final sputum culture have been pending, patient currently on full ventilator support with 100% oxygen and 10 of PEEP, rate is 26, breathing about 28-30, volume is 500, peak pressure in low 30s, blood pressure after the boluses 100/40, respiratory rate is 32, heart rate 81 temperature sats are 91%, 1 cell count is up to 23,000 hemoglobin is stable 14, d-dimer continue to go up 3.97, arterial blood gases revealed pH of 7.24 pCO2 58-year-old O2 of 80 8/2 an hour after on above ventilator setting, potentially was 5.5, BUN/creatinine 45 1.37, patient has a elevated inflammatory parameters including ferritin in 631, LDH is 1658 C-reactive protein 15.9 patient will need a central line, we will sedate and medically paralyzed, will start tube feed, monitor labs closely, patient will be started on Lovenox 30 mg subcu every 12 12/06/2020, patient seen eval reexamined labs reviewed medications reviewed care plan discussed, respiratory status remains marginal denies any chest pain, however more hypoxic currently on 15 L high flow oxygen, remains afebrile hemodynamically stable, oxygen saturation is 93%, check urgent pro-calcitonin as well as d-dimer, if d-dimer is elevated consider doing a VQ scan and duplex ultrasound lower extremity, we will also check an echocardiogram This is a 70-year-old male well-known to me patient has a severe diabetes mellitus and chronic kidney disease as baseline, 2 months ago patient was admitted to hospital with acute COVID-19 pneumonia and respiratory failure patient was on 100% oxygen and BiPAP but however successfully tapered down up to 4 L nasal cannula was discharged home patient did not came back for follow-up, for the last few days has been spiking fever more short of breath oxygen in increase to 5 L nasal cannula came into the hospital for further evaluation chest x-ray not much change his code went testing is negative, patient has been vaccinated for COVID-19 his most recent chest x-ray continued to show cardiomegaly chronic changes, no particular significant change from prior x- rays, patient does have a history of asbestosis lung however Objective - Vital Signs Vital signs: Vital Signs Temp 98.8 F 12/23/20 04:00 Pulse 121 H 12/23/20 07:00 Resp 33 H 12/23/20 07:00 BP 112/40 12/23/20 07:00 Pulse Ox 92 L 12/23/20 07:00 Intake & Output 12/22/20 12/23/20 12/23/20 18:59 06:59 18:59 Intake Total 6656.022 5726.810 73.163 Output Total 130 110 Balance 6624.577 4199.810 73.163 Intake: IV 340 240 20 Sodium Chloride 0.9% 1, 240 240 20 000 ml @ 20 mls/hr IV . Q24H [facility] Rx#:[id number]-NS PMX 500 100 mg In Saline 1 100ml.bag @ 100 mls/hr IVPB Q8HR [facility] Rx#:[id number] Intake, IV Titration 771.650 9793.810 23.163 Amount Insulin Regular 100 unit 41.427 12.087 23.163 In Sodium Chloride 0.9% 100 ml @ Per Protocol IV .Q0M [facility] Rx#:[id number] Norepinephrine 8 mg In 722.151 997.723 Sodium Chloride 0.9% 250 ml @ 0.05 MCG/KG/MIN 11. 191 mls/hr IV .Q23H4M [facility] Rx#:[id number] Tube Feeding 360 330 30 Other 80 90 Output: Urine 130 110 Other: Voiding Method Indwelling Catheter Indwelling Catheter ABP, PAP, CO, CI - Last Documented Arterial Blood Pressure 124/55 - Exam - Constitutional General appearance: sedated on full ventilator support - Neck Neck: normal ROM Carotids: bilateral: upstroke normal Thyroid: bilateral: normal size - Respiratory Respiratory: bilateral: diminished, rales - Cardiovascular Rhythm: regular Heart sounds: normal: S1, S2 - Gastrointestinal General gastrointestinal: soft - Integumentary Integumentary: normal turgor - Neurologic Neurologic: CNII-XII intact - Musculoskeletal Musculoskeletal: gait normal, generalized weakness, strength equal bilaterally - Psychiatric Psychiatric: sedated on full ventilator support - Labs CBC & Chem 7: 12/23/20 03:25 12/23/20 06:49 Labs: Abnormal Lab Results - Last 24 Hours (Table) 12/22/20 12/22/20 12/22/20 Range/Units 11:42 12:49 13:07 WBC (3.8-10.6) k/uL Neutrophils # (1.3-7.7) k/uL Lymphocytes # (1.0-4.8) k/uL Monocytes # (0-1.0) k/uL ABG pH (7.35-7.45) ABG pO2 (83-108) mmHg ABG HCO3 (21-25) mmol/L ABG O2 Saturation (94-97) % Potassium 5.5 H (3.5-5.1) mmol/L Carbon Dioxide (22-30) mmol/L BUN 194 H* (9-20) mg/dL Creatinine (0.66-1.25) mg/dL Glucose (74-99) mg/dL POC Glucose (mg/dL) 255 H 217 H (75-99) mg/dL Calcium (8.4-10.2) mg/dL Alkaline Phosphatase (38-126) U/L Total Protein (6.3-8.2) g/dL Albumin (3.5-5.0) g/dL 12/22/20 12/22/20 12/22/20 Range/Units 15:04 16:51 18:06 WBC (3.8-10.6) k/uL Neutrophils # (1.3-7.7) k/uL Lymphocytes # (1.0-4.8) k/uL Monocytes # (0-1.0) k/uL ABG pH (7.35-7.45) ABG pO2 (83-108) mmHg ABG HCO3 (21-25) mmol/L ABG O2 Saturation (94-97) % Potassium (3.5-5.1) mmol/L Carbon Dioxide (22-30) mmol/L BUN (9-20) mg/dL Creatinine (0.66-1.25) mg/dL Glucose (74-99) mg/dL POC Glucose (mg/dL) 152 H 128 H 109 H (75-99) mg/dL Calcium (8.4-10.2) mg/dL Alkaline Phosphatase (38-126) U/L Total Protein (6.3-8.2) g/dL Albumin (3.5-5.0) g/dL 12/22/20 12/22/20 12/22/20 Range/Units 20:01 20:13 21:17 WBC (3.8-10.6) k/uL Neutrophils # (1.3-7.7) k/uL Lymphocytes # (1.0-4.8) k/uL Monocytes # (0-1.0) k/uL ABG pH (7.35-7.45) ABG pO2 (83-108) mmHg ABG HCO3 (21-25) mmol/L ABG O2 Saturation (94-97) % Potassium (3.5-5.1) mmol/L Carbon Dioxide (22-30) mmol/L BUN (9-20) mg/dL Creatinine (0.66-1.25) mg/dL Glucose (74-99) mg/dL POC Glucose (mg/dL) 106 H 143 H 156 H (75-99) mg/dL Calcium (8.4-10.2) mg/dL Alkaline Phosphatase (38-126) U/L Total Protein (6.3-8.2) g/dL Albumin (3.5-5.0) g/dL 12/22/20 12/23/20 12/23/20 Range/Units 22:45 00:28 02:14 WBC (3.8-10.6) k/uL Neutrophils # (1.3-7.7) k/uL Lymphocytes # (1.0-4.8) k/uL Monocytes # (0-1.0) k/uL ABG pH (7.35-7.45) ABG pO2 (83-108) mmHg ABG HCO3 (21-25) mmol/L ABG O2 Saturation (94-97) % Potassium (3.5-5.1) mmol/L Carbon Dioxide (22-30) mmol/L BUN (9-20) mg/dL Creatinine (0.66-1.25) mg/dL Glucose (74-99) mg/dL POC Glucose (mg/dL) 135 H 129 H 147 H (75-99) mg/dL Calcium (8.4-10.2) mg/dL Alkaline Phosphatase (38-126) U/L Total Protein (6.3-8.2) g/dL Albumin (3.5-5.0) g/dL 12/23/20 12/23/20 12/23/20 Range/Units 03:25 04:25 05:12 WBC 42.8 H (3.8-10.6) k/uL Neutrophils # 39.2 H (1.3-7.7) k/uL Lymphocytes # 0.5 L (1.0-4.8) k/uL Monocytes # 2.2 H (0-1.0) k/uL ABG pH 7.29 L (7.35-7.45) ABG pO2 70 L (83-108) mmHg ABG HCO3 18 L (21-25) mmol/L ABG O2 Saturation 90.9 L (94-97) % Potassium (3.5-5.1) mmol/L Carbon Dioxide (22-30) mmol/L BUN (9-20) mg/dL Creatinine (0.66-1.25) mg/dL Glucose (74-99) mg/dL POC Glucose (mg/dL) 183 H (75-99) mg/dL Calcium (8.4-10.2) mg/dL Alkaline Phosphatase (38-126) U/L Total Protein (6.3-8.2) g/dL Albumin (3.5-5.0) g/dL 12/23/20 12/23/20 12/23/20 Range/Units 06:00 06:49 07:15 WBC (3.8-10.6) k/uL Neutrophils # (1.3-7.7) k/uL Lymphocytes # (1.0-4.8) k/uL Monocytes # (0-1.0) k/uL ABG pH (7.35-7.45) ABG pO2 (83-108) mmHg ABG HCO3 (21-25) mmol/L ABG O2 Saturation (94-97) % Potassium 6.3 H* (3.5-5.1) mmol/L Carbon Dioxide 18 L (22-30) mmol/L BUN 158 H* (9-20) mg/dL Creatinine 4.15 H (0.66-1.25) mg/dL Glucose 217 H (74-99) mg/dL POC Glucose (mg/dL) 191 H 186 H (75-99) mg/dL Calcium 7.5 L (8.4-10.2) mg/dL Alkaline Phosphatase 163 H (38-126) U/L Total Protein 5.0 L (6.3-8.2) g/dL Albumin 2.4 L (3.5-5.0) g/dL 12/23/20 12/23/20 Range/Units 08:36 10:36 WBC (3.8-10.6) k/uL Neutrophils # (1.3-7.7) k/uL Lymphocytes # (1.0-4.8) k/uL Monocytes # (0-1.0) k/uL ABG pH (7.35-7.45) ABG pO2 (83-108) mmHg ABG HCO3 (21-25) mmol/L ABG O2 Saturation (94-97) % Potassium (3.5-5.1) mmol/L Carbon Dioxide (22-30) mmol/L BUN (9-20) mg/dL Creatinine (0.66-1.25) mg/dL Glucose (74-99) mg/dL POC Glucose (mg/dL) 200 H 118 H (75-99) mg/dL Calcium (8.4-10.2) mg/dL Alkaline Phosphatase (38-126) U/L Total Protein (6.3-8.2) g/dL Albumin (3.5-5.0) g/dL Microbiology - Last 24 Hours (Table) 12/19/20 16:57 Blood Culture - Preliminary Blood No Growth after 72 hours 12/20/20 17:00 Stool Culture - Preliminary Stool 12/19/20 20:30 Gram Stain - Final Sputum Sputum Culture - Final Anamaria albicans Assessment and Plan Assessment: V. fib cardiac arrest Cardiopulmonary arrest C. difficile colitis Elevated WBC likely related to above with fever Acute respiratory failure with difficulty to wean due to marginal oxygenation, withdraws the sedation ventilator adjustment acute kidney injury with fluid overload and anasarca, patient being planned for hemodialysis Hyperglycemia uncontrolled diabetes on insulin drip left renal mass with history of renal cell clear carcinoma, status post partial elective nephrectomy in 2019 gram-negative pneumonia due to ESBL E. coli Severe sepsis and septic shock due to gram-negative pneumonia Acute on chronic hypoxic and hypercapnic respiratory failure Acute lung injury and ARDS Developing progressive right-sided pleural effusion Acute kidney injury hyperkalemia Metabolic and respiratory acidosis Uncontrolled diabetes Pulmonary fibrosis due to extensive recentCOVID-19 pneumonia Asbestosis lung pulmonary nodule Advanced diabetes mellitus with hyperglycemia Chronic kidney disease stage III Plan: Patient underwent chest compression but ACLS protocol with high efficiency now on levo fed and vasopressin overall prognosis is very poor discussed with the daughter she would like patient to be no code family meeting down the road they are considering comfort care measures and to withdraw the support and care in the meantime S Continue Flagyl and oral vancomycin through the OG tube Hold on weaning trials for now Hemodialysis plan for later on today Withdraw sedation assess mental status ventilator adjustment Follow renal functions closely Continue broad-spectrum antibiotics Ventilator adjustment as per orders as above patient status post second course of hemodialysis Urology evaluation Patient is off of Nimbex drip, propofol drip ventilator adjustment We'll put new left IJ central line tomorrow hold Lovenox tonight and in the morning Lovenox 30 mg subcu every 12 tube feed as per protocol Labs chest x-ray and ABG in the morning Off of Vasopressors Follow-up on Aguilar cultures including sputum urine and blood continue antibiotics Oral prednisone evaluation of pulmonary nodule once stabilized Time with Patient: Greater than 30
--- NOTE | 2020-12-23 11:47 | P.PCN ---
Date of Procedure: 12/23/20 Preoperative Diagnosis: Cardiopulmonary arrest, V. fib arrest, ESBL E. coli pneumonia, acute renal failure, C. difficile colitis Postoperative Diagnosis: As above Procedure(s) Performed: Left femoral vein triple lumen catheter placed and ultrasound guidance Anesthesia: local Surgeon: Armen Cervantes Estimated Blood Loss (ml): 5 Condition: critical Disposition: ICU Indications for Procedure: As above Operative Findings: As below Description of Procedure: Patient prepared and draped in a usual fashion, ultrasound results lies to look at the left femoral artery which was anterior laterally to the femoral artery with ultrasound guidance able to isolate the vein and puncture, through modified Seldinger technique triple-lumen catheter inserted into the left femoral vein without any difficulty or ports are flushed secured with #3 silk patient tolerated procedure well no immediate postoperative complications noted,
[2020-12-23 12:21] LABS: Glucose,Whole Blood 88 mg/dL (75-99)
[2020-12-23 12:38] VITALS: BP 111/82; PULSE 181; RESP 20; TEMP 98.6
[2020-12-23] MEDS ORDERED: LORazepam 2 MG/ML INJ IV PRN (13:22)
[2020-12-23] MEDS ORDERED: MORPHINE SULFATE 4 MG/ML SYRINGE IV PRN (13:22)
[2020-12-23] MEDS ORDERED: MORPHINE SULFATE 2 MG/ML SYRINGE IV PRN (13:22)
[2020-12-23] MEDS ORDERED: SCOPOLAMINE 1.5MG/72HR PATCH TRANSDERM SCH (13:30)
[2020-12-23] MEDS: LORazepam 2 MG/ML INJ IV PRN (13:35)
--- NOTE | 2020-12-23 15:12 | PN ---
PROGRESS NOTE Patient was seen this morning for followup for acute kidney injury. He is currently maintained on dialysis. The patient was seen on dialysis. His Levophed is at max dose. He remains with systolic blood pressure in the high 90s. FiO2 is at 40%. Patient has edema upper and lower extremities. He is tolerating tube feeds. Urine output remains low. Overall condition has deteriorated over the last 2 days with increased requirement of pressors and continued hypotension. Potassium was elevated at 6.3 today. EXAMINATION: Blood pressure 111/80, heart rate 92 per minute. Patient is afebrile. Examination shows edema, upper and lower extremities. Abdomen is soft, distended, nontender. Patient is intubated. He remains on the vent, sedated and paralyzed on Nimbex, FiO2 as mentioned, 40%. Labs are reviewed. Sodium 139, potassium 6.3, BUN 158, creatinine 4.1. ASSESSMENT: 1. Acute kidney injury, acute tubular necrosis, currently oliguric. The patient is being dialyzed. However, he is hemodynamically unstable. He remains on large doses of pressors. We will discuss with the family regarding overall general condition based on how he tolerates hemodialysis today. May need to consider comfort care measures. 2. Vent dependent respiratory failure. 3. Volume overload. 4. Acute hypoxic respiratory failure secondary to pneumonia. 5. Hypernatremia, currently resolved. PLAN: Will need to discuss with family regarding further code status depending on how patient tolerates dialysis today. Overall prognosis is poor. MMODL / IJN: [id number] /
--- NOTE | 2020-12-23 16:30 | P.PN ---
Subjective Patient is being treated for secondary bacterial pneumonia and he was recently discharged after he was treated for Covid 19. 8. Patient was intubated around 08 of December. Patient is found to have ESBL in the sputum. Patient is being treated for post Covid gram-negative pneumonia and found to have ESBL E. coli in the sputum. Patient was on meropenem and completed therapy with meropenem without any significant improvement because of which patient was started on broad-spectrum antibiotic that he cefteroline when then patient started having diarrhea and patient had leukocytosis with white blood cell count going up from 20,000-54,000 patient is found to have C. diff colitis. was also started on hemodialysis during this hospitalization which is again secondary to acute tubular necrosis from severe sepsis. Patient is presently on 50% FiO2 PEEP of 5 patient's sedation was turned of about a day ago in spite of which patient still doesn't have any purposeful movements. Patient does have brainstem reflexes. Patient prognosis is extremely poor patient was treated aggressively without any significant improvement with more and more complications including C. diff colitis, will discuss with the family regarding overall goals of care. Patient does have multiorgan dysfunction and patient is in and out of septic shock and was requiring norepinephrine on and off. Patient's rhythm is also showing Anamaria remains on systemic steroids patient is also on metronidazole possibly for C. diff. Patient is ALLERGIC to to vancomycin. 12/22/2020 Patient is still having diarrhea. Patient still remains on norepinephrine. In spite of disc herniation of sedation patient is barely responsive this time of movements. His overall clinical condition is guarded and his overall prognosis is poor patient is more appropriate for hospice at this point of time. Patient remains intubated with FiO2 of around 40% and PEEP of 5. Patient's inguinal Robbin catheter is being exchanged over the guidewire. Patient potassium is elevated creatinine continued to go up barely has any urine output. Patient actually received Lasix today 12/23/2020 Patient had a cardiac pulmonary arrest went into asystole followed by Amanda hardy and after shocking twice patient returned to sinus tachycardia. Patient was started on pressor support and patient was on vasopressin maxed out on vasopressin was also on norepinephrine. Patient overall clinical condition significantly worsened. Patient was given the normal saline with improvement in blood pressure. Patient's prognosis is extremely poor same thing was discussed with the family members and patient most probably will be switched to comfort care and terminal wean later in the day. Review of systems: Unable to obtain due to his clinical condition All inpatient medications were reviewed and appropriate changes in these medications as dictated in the interval history and assessment and plan. Objective - Vital Signs Vital signs: Vital Signs Temp 98.6 F 12/23/20 12:00 Pulse 181 H 12/23/20 12:00 Resp 20 12/23/20 12:00 BP 160/72 12/23/20 11:55 Pulse Ox 88 L 12/23/20 11:00 Intake & Output 12/22/20 12/23/20 12/23/20 18:59 06:59 18:59 Intake Total 3012.323 2631.810 323.163 Output Total 130 110 527 Balance 6772.646 3683.810 -203.837 Intake: IV 340 240 120 Sodium Chloride 0.9% 1, 240 240 120 000 ml @ 20 mls/hr IV . Q24H ISABELLE Rx#:[id number] metroNIDAZOLE-NS PMX 500 100 mg In Saline 1 100ml.bag @ 100 mls/hr IVPB Q8HR ISABELLE Rx#:[id number] Intake, IV Titration 904.221 8489.810 23.163 Amount Insulin Regular 100 unit 41.427 12.087 23.163 In Sodium Chloride 0.9% 100 ml @ Per Protocol IV .Q0M ISABELLE Rx#:[id number] Norepinephrine 8 mg In 722.151 997.723 Sodium Chloride 0.9% 250 ml @ 0.05 MCG/KG/MIN 11. 191 mls/hr IV .Q23H4M ISABELLE Rx#:[id number] Tube Feeding 360 330 180 Other 80 90 Output: Urine 130 110 10 Hemodialysis 517 Other: Voiding Method Indwelling Catheter Indwelling Catheter Indwelling Catheter ABP, PAP, CO, CI - Last Documented Arterial Blood Pressure 124/55 - Exam PHYSICAL EXAMINATION: GENERAL: Patient is intubated sedated HEENT: Pupils are round and equally reacting to light. EOMI. No scleral icterus. No conjunctival pallor. Normocephalic, atraumatic. No pharyngeal erythema. No thyromegaly. CARDIOVASCULAR: S1 and S2 present. No murmurs, rubs, or gallops. PULMONARY: Sounds and diminished air entry into bilateral lung tavarez ABDOMEN: Soft, nontender, nondistended, normoactive bowel sounds. No palpable organomegaly. MUSCULOSKELETAL: No joint swelling or deformity. EXTREMITIES: No cyanosis, clubbing, or pedal edema. NEUROLOGICAL: Sedated. SKIN: No rashes. - Labs CBC & Chem 7: 12/23/20 03:25 12/23/20 06:49 Labs: Abnormal Lab Results - Last 24 Hours (Table) 12/22/20 12/22/20 12/22/20 Range/Units 16:51 18:06 20:01 WBC (3.8-10.6) k/uL Neutrophils # (1.3-7.7) k/uL Lymphocytes # (1.0-4.8) k/uL Monocytes # (0-1.0) k/uL ABG pH (7.35-7.45) ABG pO2 (83-108) mmHg ABG HCO3 (21-25) mmol/L ABG O2 Saturation (94-97) % Potassium (3.5-5.1) mmol/L Carbon Dioxide (22-30) mmol/L BUN (9-20) mg/dL Creatinine (0.66-1.25) mg/dL Glucose (74-99) mg/dL POC Glucose (mg/dL) 128 H 109 H 106 H (75-99) mg/dL Calcium (8.4-10.2) mg/dL Alkaline Phosphatase (38-126) U/L Total Protein (6.3-8.2) g/dL Albumin (3.5-5.0) g/dL 12/22/20 12/22/20 12/22/20 Range/Units 20:13 21:17 22:45 WBC (3.8-10.6) k/uL Neutrophils # (1.3-7.7) k/uL Lymphocytes # (1.0-4.8) k/uL Monocytes # (0-1.0) k/uL ABG pH (7.35-7.45) ABG pO2 (83-108) mmHg ABG HCO3 (21-25) mmol/L ABG O2 Saturation (94-97) % Potassium (3.5-5.1) mmol/L Carbon Dioxide (22-30) mmol/L BUN (9-20) mg/dL Creatinine (0.66-1.25) mg/dL Glucose (74-99) mg/dL POC Glucose (mg/dL) 143 H 156 H 135 H (75-99) mg/dL Calcium (8.4-10.2) mg/dL Alkaline Phosphatase (38-126) U/L Total Protein (6.3-8.2) g/dL Albumin (3.5-5.0) g/dL 12/23/20 12/23/20 12/23/20 Range/Units 00:28 02:14 03:25 WBC 42.8 H (3.8-10.6) k/uL Neutrophils # 39.2 H (1.3-7.7) k/uL Lymphocytes # 0.5 L (1.0-4.8) k/uL Monocytes # 2.2 H (0-1.0) k/uL ABG pH (7.35-7.45) ABG pO2 (83-108) mmHg ABG HCO3 (21-25) mmol/L ABG O2 Saturation (94-97) % Potassium (3.5-5.1) mmol/L Carbon Dioxide (22-30) mmol/L BUN (9-20) mg/dL Creatinine (0.66-1.25) mg/dL Glucose (74-99) mg/dL POC Glucose (mg/dL) 129 H 147 H (75-99) mg/dL Calcium (8.4-10.2) mg/dL Alkaline Phosphatase (38-126) U/L Total Protein (6.3-8.2) g/dL Albumin (3.5-5.0) g/dL 12/23/20 12/23/20 12/23/20 Range/Units 04:25 05:12 06:00 WBC (3.8-10.6) k/uL Neutrophils # (1.3-7.7) k/uL Lymphocytes # (1.0-4.8) k/uL Monocytes # (0-1.0) k/uL ABG pH 7.29 L (7.35-7.45) ABG pO2 70 L (83-108) mmHg ABG HCO3 18 L (21-25) mmol/L ABG O2 Saturation 90.9 L (94-97) % Potassium (3.5-5.1) mmol/L Carbon Dioxide (22-30) mmol/L BUN (9-20) mg/dL Creatinine (0.66-1.25) mg/dL Glucose (74-99) mg/dL POC Glucose (mg/dL) 183 H 191 H (75-99) mg/dL Calcium (8.4-10.2) mg/dL Alkaline Phosphatase (38-126) U/L Total Protein (6.3-8.2) g/dL Albumin (3.5-5.0) g/dL 12/23/20 12/23/20 12/23/20 Range/Units 06:49 07:15 08:36 WBC (3.8-10.6) k/uL Neutrophils # (1.3-7.7) k/uL Lymphocytes # (1.0-4.8) k/uL Monocytes # (0-1.0) k/uL ABG pH (7.35-7.45) ABG pO2 (83-108) mmHg ABG HCO3 (21-25) mmol/L ABG O2 Saturation (94-97) % Potassium 6.3 H* (3.5-5.1) mmol/L Carbon Dioxide 18 L (22-30) mmol/L BUN 158 H* (9-20) mg/dL Creatinine 4.15 H (0.66-1.25) mg/dL Glucose 217 H (74-99) mg/dL POC Glucose (mg/dL) 186 H 200 H (75-99) mg/dL Calcium 7.5 L (8.4-10.2) mg/dL Alkaline Phosphatase 163 H (38-126) U/L Total Protein 5.0 L (6.3-8.2) g/dL Albumin 2.4 L (3.5-5.0) g/dL 12/23/20 Range/Units 10:36 WBC (3.8-10.6) k/uL Neutrophils # (1.3-7.7) k/uL Lymphocytes # (1.0-4.8) k/uL Monocytes # (0-1.0) k/uL ABG pH (7.35-7.45) ABG pO2 (83-108) mmHg ABG HCO3 (21-25) mmol/L ABG O2 Saturation (94-97) % Potassium (3.5-5.1) mmol/L Carbon Dioxide (22-30) mmol/L BUN (9-20) mg/dL Creatinine (0.66-1.25) mg/dL Glucose (74-99) mg/dL POC Glucose (mg/dL) 118 H (75-99) mg/dL Calcium (8.4-10.2) mg/dL Alkaline Phosphatase (38-126) U/L Total Protein (6.3-8.2) g/dL Albumin (3.5-5.0) g/dL Microbiology - Last 24 Hours (Table) 12/19/20 16:57 Blood Culture - Preliminary Blood No Growth after 72 hours 12/20/20 17:00 Stool Culture - Preliminary Stool Assessment and Plan Plan: - septic shock: likely due to secondary bacterial pneumonia, patient's (a positive for E. coli which is ESBL E. coli. Patient most probably has a post Covid bacterial pneumonia. COVID-19 PCR is negative on this hospitalization, pulmonary and infectious disease are following the patient. Patient is presently on Cefterolin, was on meropenem without any significant in his sepsis status. Patient completed course of meropenem at patient doesn't have any significant clinical improvement in in spite of aggressive treatment and patient had cardiac pulmonary arrest. Patient is on vasopressin at maximal rate and norepinephrine at maximal rate. Patient probably will be made hospice later in the day same thing was discussed with pattern weaver with family members. -Cardio pulmonary arrest V. fib followed by shock and returned to sinus rhythm -C. diff colitis: Patient is on metronidazole. Patient was on Antifungal agents as sputum culture showing Anamaria albicans. She is presently not on any antifungal agents. -Acute hypoxic respiratory failure secondary to septic shock. -Acute renal failure secondary to acute tubular necrosis from septic shock, patient is presently on hemodialysis scheduled -elevated d-dimer secondary to pneumonia . -Acute on chronic hypoxic respiratory failure secondary to pneumonia. -History of asbestosis -Chronic kidney disease stage II to 3. Probable diabetic nephropathy --History of DVT in the past -Type 2 diabetes mellitus: Well controlled, continue with present regimen of long-acting insulin and short-acting insulin every 4 hours. Patient is also on systemic steroids as per pulmonary. -Hypertension -Sleep apnea -Diabetic peripheral neuropathy -History of renal mass. Status post nephrectomy in 2019. The rest of the family patient will be transitioned to comfort care and possible terminal wean later today
--- NOTE | 2020-12-25 15:27 | CDI ---
Documentation Clarification Form Mortality Review Date: 12/25/2020 03:18:53 PM From: Christina Orantes RN, CCDS Admit Date: 12/04/2020 04:41:00 PM Patient Name: Jovany Ny Visit Number: [id number] Discharge Date: 12/23/2020 01:49:00 PM ATTENTION: The Clinical Documentation Specialists (CDI) and [facility] Coding Staff appreciate your assistance in clarifying documentation. Please respond to the clarification below the line at the bottom and electronically sign. The CDI & [facility] Coding staff will review the response and follow-up if needed. Please note: Queries are made part of the Legal Health Record. If you have any questions, please contact the author of this message via ITS. Dr. Lorelei Phillips Medial Coccyx pressure ulcer is documented by Nursing beginning 12/19 @ 0800. Based on this information and the findings below, is there an additional diagnosis that is clinically appropriate for this patient? History/Risk Factors: HTN, Covid 19 Pneumonia, DM2, Hx of CVR, Asthma, JEAN, Neuropathy, Anemia, Asbestosis, Ex-Smoker, ARCELIA with ATN on CKD stage 3, Acute hypoxic respiratory failure, Sepsis with Septic Shock Clinical Indicators: Location: Medial coccyx Wound description: Stage 2 pressure injury Treatment: Wound open to air with zinc ointment applied Is there an additional diagnosis that is clinically appropriate for this patient? [ ] Medial Coccyx Pressure Ulcer Stage 2 [ ] Other condition, please specify [ ] Unable to determine Clinical Definitions: Stage 1 Pressure Ulcer: intact skin, non-blanching redness of local area Stage 2 Pressure Ulcer: Partial thickness, loss of dermis, pink wound bed Stage 3 Pressure Ulcer: Full thickness tissue loss Stage 4 Pressure Ulcer: Full thickness tissue loss with exposed bone, tendon, or muscle. Unstageable pressure ulcer: Full thickness tissue loss in which the base of the ulcer is covered by slough (yellow, devlin, to, green or brown) and/or eschar (devlin, brown or black) in the wound bed. (Template Last Revised: September 2020) Medial Coccyx Pressure Ulcer Stage 2 MTDD
--- NOTE | 2020-12-25 15:33 | CDI ---
Documentation Clarification Form Mortality Review Date: 12/25/2020 03:28:37 PM From: Christina Orantes RN, CCDS Admit Date: 12/04/2020 04:41:00 PM Patient Name: Jovany Ny Visit Number: [id number] Discharge Date: 12/23/2020 01:49:00 PM ATTENTION: The Clinical Documentation Specialists (CDI) and [facility] Coding Staff appreciate your assistance in clarifying documentation. Please respond to the clarification below the line at the bottom and electronically sign. The CDI & [facility] Coding staff will review the response and follow-up if needed. Please note: Queries are made part of the Legal Health Record. If you have any questions, please contact the author of this message via ITS. Dr. Moseley A Pressure injury to the left earlobe documented by Nursing beginning 12/22/2020. Based on this information and the findings below, is there an additional diagnosis that is clinically appropriate for this patient? History/Risk Factors: HTN, Covid 19 Pneumonia, DM2, Hx of CVR, Asthma, JEAN, Neuropathy, Anemia, Asbestosis, Ex-Smoker, ARCELIA with ATN on CKD stage 3, Acute hypoxic respiratory failure, Sepsis with Septic Shock Clinical Indicators: Location: Left Earlobe Wound description: Stage 2, hospital acquired due to removable medical records administrator Treatment: Super sponge gauze underneath holister device Is there an additional diagnosis that is clinically appropriate for this patient? [ ] Left Earlobe Pressure Ulcer Stage 2 [ ] Other condition, please specify [ ] Unable to determine Clinical Definitions: Stage 1 Pressure Ulcer: intact skin, non-blanching redness of local area Stage 2 Pressure Ulcer: Partial thickness, loss of dermis, pink wound bed Stage 3 Pressure Ulcer: Full thickness tissue loss Stage 4 Pressure Ulcer: Full thickness tissue loss with exposed bone, tendon, or muscle. Unstageable pressure ulcer: Full thickness tissue loss in which the base of the ulcer is covered by slough (yellow, devlin, to, green or brown) and/or eschar (devlin, brown or black) in the wound bed. (Template Last Revised: September 2020) Left Earlobe Pressure Ulcer Stage 2 MTDD
--- NOTE | 2020-12-25 16:44 | P.DS ---
Providers Date of admission: 12/04/20 16:41 Expected date of discharge: 12/24/20 Attending physician: Arcelia Moseley Consults: 12/04/20 17:20 Consult Physician Routine Consulting Provider: Armen Cervantes Consult Reason/Comments: Pneumonia Do you want consulting provider notified?: Yes Consult Physician Routine Consulting Provider: Johanny Nguyễn Consult Reason/Comments: Pneumonia Do you want consulting provider notified?: Yes 12/09/20 14:42 Consult Physician Routine Consulting Provider: Jaz Dumont Consult Reason/Comments: florentino Do you want consulting provider notified?: Yes, Notify in am 12/12/20 06:31 Consult Physician Routine Consulting Provider: Janes Snyder Consult Reason/Comments: hyperkalemia, kidney failure Do you want consulting provider notified?: Yes, Notify in am 12/13/20 09:52 Consult Physician Routine Consulting Provider: Dayday Peterson Consult Reason/Comments: Left renal mass Do you want consulting provider notified?: Yes Primary care physician: Katey Dumont Hospital Course: Patient was admitted for pneumonia was is in septic shock had acute tubular necrosis patient was on hemodialysis patient didn't have any significant clinical improvement. Patient overall clinical condition continued to get worse in spite of aggressive treatment for his septic shock. Patient was made comfort care and patient was terminally weaned. Patient subsequently please refer to nursing documentation for exact time and date of . Please refer to my progress note from December 23 for details regarding hospitalization course and medical problems that were addressed Patient Condition at Discharge: Fair Plan - Discharge Summary Discharge Rx Participant: Yes New Discharge Prescriptions: No Action Insulin Aspart [NovoLOG Flexpen] 10 units SQ AC-TID Gabapentin [Neurontin] 300 mg PO DAILY atenoloL [Tenormin] 25 mg PO DAILY Zinc Sulfate [Orazinc] 220 mg PO DAILY 30 Days #30 cap Pantoprazole [Protonix] 40 mg PO AC-BRKFST 30 Days #30 tablet. Acetaminophen Tab [Tylenol] 650 mg PO Q6HR PRN tab PRN Reason: Mild Pain Or Fever > 100.5 Albuterol Inhaler [Ventolin Hfa Inhaler] 2 puff INHALATION RT-TID 30 Days #1 puff Cholecalciferol [Vitamin D3 (25 Mcg = 1000 Iu)] 100 mcg PO DAILY 30 Days #120 tablet Insulin Glargine [Lantus] 30 unit SQ HS Sildenafil Citrate 100 mg PO DAILY PRN PRN Reason: ED Aspirin 81 mg PO DAILY 30 Days #30 chewable amLODIPine [Norvasc] 10 mg PO DAILY 30 Days #30 tab Albuterol Inhaler [Ventolin Hfa Inhaler] 2 puff INHALATION RT-TID PRN puff PRN Reason: Shortness Of Breath Or Wheezing Discharge Medication List Gabapentin [Neurontin] 300 mg PO DAILY 10/20/19 [History] Insulin Aspart [NovoLOG Flexpen] 10 units SQ AC-TID 10/20/19 [History] atenoloL [Tenormin] 25 mg PO DAILY 10/20/19 [History] Sildenafil Citrate 100 mg PO DAILY PRN 10/29/20 [History] Acetaminophen Tab [Tylenol] 650 mg PO Q6HR PRN tab 11/11/20 [Rx] Albuterol Inhaler [Ventolin Hfa Inhaler] 2 puff INHALATION RT-TID 30 Days #1 puff 11/11/20 [Rx] Albuterol Inhaler [Ventolin Hfa Inhaler] 2 puff INHALATION RT-TID PRN puff 11/11/20 [Rx] Aspirin 81 mg PO DAILY 30 Days #30 chewable 11/11/20 [Rx] Cholecalciferol [Vitamin D3 (25 Mcg = 1000 Iu)] 100 mcg PO DAILY 30 Days #120 tablet 11/11/20 [Rx] Pantoprazole [Protonix] 40 mg PO AC-BRKFST 30 Days #30 tablet. 11/11/20 [Rx] Zinc Sulfate [Orazinc] 220 mg PO DAILY 30 Days #30 cap 11/11/20 [Rx] amLODIPine [Norvasc] 10 mg PO DAILY 30 Days #30 tab 11/11/20 [Rx] Insulin Glargine [Lantus] 30 unit SQ HS 12/04/20 [History] Follow up Appointment(s)/Referral(s): [facility], [NON-STAFF] - As Needed Armen Cervantes MD [STAFF PHYSICIAN] - 1 Week Katey Dumont MD [Primary Care Provider] - 1-2 days Dayday Peterson MD [STAFF PHYSICIAN] - 4 Weeks Discharge Disposition: - Preliminary Cause of Preliminary Cause of : Sepsis secondary to pneumonia
== END 2020-12-23 13:49 | disposition expired | DRG 870 ==
LOC: EC 14:01 → 4SSUR 16:41 → 2SICU 12-08 04:53
PROVIDERS: ADMIT Internal Medicine; ATTEND Internal Medicine
PROC: 5A1955Z Respiratory Ventilation, Greater than 96 Consecutive Hours (ICD-10-PCS; principal; 2020-12-08)
PROC: 0BH17EZ Insertion of Endotracheal Airway into Trachea, Via Natural or Artificial Opening (ICD-10-PCS; 2020-12-08)
PROC: 05HM33Z Insertion of Infusion Device into Right Internal Jugular Vein, Percutaneous Approach (ICD-10-PCS; 2020-12-08)
PROC: 06HY33Z Insertion of Infusion Device into Lower Vein, Percutaneous Approach (ICD-10-PCS; 2020-12-08)
PROC: 5A09357 Assistance with Respiratory Ventilation, Less than 24 Consecutive Hours, Continuous Positive Airway Pressure (ICD-10-PCS; 2020-12-08)
PROC: 5A1D70Z Performance of Urinary Filtration, Intermittent, Less than 6 Hours Per Day (ICD-10-PCS; 2020-12-12)
PROC: 3E043XZ Introduction of Vasopressor into Central Vein, Percutaneous Approach (ICD-10-PCS; 2020-12-21)
PROC: 06HY33Z Insertion of Infusion Device into Lower Vein, Percutaneous Approach (ICD-10-PCS; 2020-12-22)
PROC: 5A12012 Performance of Cardiac Output, Single, Manual (ICD-10-PCS; 2020-12-23)
PROC: 06HN33Z Insertion of Infusion Device into Left Femoral Vein, Percutaneous Approach (ICD-10-PCS; 2020-12-23)
PROC: 0DH67UZ Insertion of Feeding Device into Stomach, Via Natural or Artificial Opening (ICD-10-PCS; 2020-12-23)
PROC: 3E0G76Z Introduction of Nutritional Substance into Upper GI, Via Natural or Artificial Opening (ICD-10-PCS; 2020-12-23)
DX: A41.51 Sepsis due to Escherichia coli [E. coli] (principal); N17.0 Acute kidney failure with tubular necrosis; J69.0 Pneumonitis due to inhalation of food and vomit; J80 Acute respiratory distress syndrome; J90 Pleural effusion, not elsewhere classified; R65.21 Severe sepsis with septic shock; J15.5 Pneumonia due to Escherichia coli; A04.72 Enterocolitis due to Clostridium difficile, not specified as recurrent; E87.0 Hyperosmolality and hypernatremia; E87.4 Mixed disorder of acid-base balance; E87.1 Hypo-osmolality and hyponatremia; J93.82 Other air leak; R04.2 Hemoptysis; Z16.12 Extended spectrum beta lactamase (ESBL) resistance; D63.1 Anemia in chronic kidney disease; J84.10 Pulmonary fibrosis, unspecified; J99 Respiratory disorders in diseases classified elsewhere; J61 Pneumoconiosis due to asbestos and other mineral fibers; L89.152 Pressure ulcer of sacral region, stage 2; L89.812 Pressure ulcer of head, stage 2; I46.2 Cardiac arrest due to underlying cardiac condition; Z79.4 Long term (current) use of insulin; Z51.5 Encounter for palliative care; Z66 Do not resuscitate; Z20.822 Contact with and (suspected) exposure to COVID-19; E11.22 Type 2 diabetes mellitus with diabetic chronic kidney disease; I49.01 Ventricular fibrillation; E11.42 Type 2 diabetes mellitus with diabetic polyneuropathy; I13.10 Hypertensive heart and chronic kidney disease without heart failure, with stage 1 through stage 4 chronic kidney disease, or unspecified chronic kidney disease; N18.30 Chronic kidney disease, stage 3 unspecified; Z89.412 Acquired absence of left great toe; Z89.422 Acquired absence of other left toe(s); Z99.2 Dependence on renal dialysis; B94.8 Sequelae of other specified infectious and parasitic diseases; E11.65 Type 2 diabetes mellitus with hyperglycemia; J45.909 Unspecified asthma, uncomplicated; E86.1 Hypovolemia; E86.0 Dehydration; E87.5 Hyperkalemia; E87.70 Fluid overload, unspecified; G47.33 Obstructive sleep apnea (adult) (pediatric); N28.89 Other specified disorders of kidney and ureter; R91.1 Solitary pulmonary nodule; L80 Vitiligo; F32.9 Major depressive disorder, single episode, unspecified; F41.9 Anxiety disorder, unspecified; K44.9 Diaphragmatic hernia without obstruction or gangrene; K21.9 Gastro-esophageal reflux disease without esophagitis; K64.9 Unspecified hemorrhoids; Z99.81 Dependence on supplemental oxygen; Z79.82 Long term (current) use of aspirin; Z79.899 Other long term (current) drug therapy; Z86.718 Personal history of other venous thrombosis and embolism; Z87.39 Personal history of other diseases of the musculoskeletal system and connective tissue; Z86.14 Personal history of Methicillin resistant Staphylococcus aureus infection; Z90.89 Acquired absence of other organs; Z87.891 Personal history of nicotine dependence; Z90.49 Acquired absence of other specified parts of digestive tract; Z90.5 Acquired absence of kidney; Z85.528 Personal history of other malignant neoplasm of kidney; Z98.890 Other specified postprocedural states; Z88.1 Allergy status to other antibiotic agents; Z88.5 Allergy status to narcotic agent; Z82.3 Family history of stroke; Z82.5 Family history of asthma and other chronic lower respiratory diseases; Z80.3 Family history of malignant neoplasm of breast; Z80.52 Family history of malignant neoplasm of bladder
CPT/HCPCS: 36415; 36600; 71045; 71046; 71250; 74176; 76770; 80048; 80051; 80053; 81001; 82550; 82728; 82805; 83605; 83615; 83735; 83880; 84100; 84132; 84145; 84484; 84520; 85025; 85027; 85379; 85384; 85610; 85730; 86140; 86706; 87040; 87045; 87046; 87070; 87077; 87086; 87186; 87205; 87324; 87340; 87449; 87635; 90935; 93005; 93306; 94002; 94003; 94640; 94660; 94760; 99285